=== PATIENT | male | born 1975 | race Caucasian/White ===

== ENCOUNTER 2017-05-11 18:49 | Emergency (ER) | payer MEDICARE, MEDICAID ==
[2017-05-11] MEDS ORDERED: AMOX/CLAV 875 MG/125 MG TABLET PO STA (19:51)
[2017-05-11] MEDS ORDERED: BUFFERED LIDOCAINE 10 ML SYRINGE SUBQ STA (19:51)
--- NOTE | 2017-05-11 19:51 | ED Physician Documentation ---
PD HPI LOWER EXT INJURY - Stated complaint Stated Complaint: R FOOT PX - Chief complaint Chief Complaint: Ext Problem - History obtained from History obtained from: Patient - History of Present Illness PD HPI LOW EXT INJURY LOCATION: Other (He has an ingrown toenail of the right great toe, he tried to do an excision of it about a week ago but was quite painful and it is gotten worse since then.) Review of Systems Constitutional: reports: Reviewed and negative Throat: reports: Reviewed and negative Cardiac: reports: Reviewed and negative PD PAST MEDICAL HISTORY - Past Medical History Cardiovascular: Murmur Respiratory: Asthma Neuro: Peripheral neuropathy Endocrine/Autoimmune: None GI: Chronic constipation : Incontinence HEENT: None Psych: Depression Musculoskeletal: Chronic back pain Derm: Other - Past Surgical History Past Surgical History: Yes Ortho: Spine surgery HEENT: Tonsil/Adenoidectomy - Present Medications Home Medications: Ambulatory Orders Medication Instructions Recorded Confirmed Amox/Clav 875/125 [Augmentin] 1 each PO Q12H #14 tablet 05/11/17 HYDROcod/ACETAM 5/325 [[place] 5/325] 1 - 2 ea PO Q6H PRN #7 tablet 05/11/17 - Allergies Allergies/Adverse Reactions: Allergies Allergy/AdvReac Type Severity Reaction Status Date / Time morphine Allergy Intermediate terrors Verified 05/11/17 18:55 - Social History Does the pt smoke?: No Smoking Status: Former smoker Does the pt drink ETOH?: Yes Does the pt have substance abuse?: No - Immunizations Immunizations are current?: Yes - POLST Patient has POLST: No PD ED PE NORMAL - Vitals Vital signs reviewed: Yes - General General: Alert and oriented X 3, No acute distress - Extremities Extremities: Other (The right great toenail is very short, it only comes out about 6 mm from the proximal nail bed at all and the lateral side is severely ingrown with infection) - Neuro Neuro: Alert and oriented X 3, Normal speech - Psych Psych: Normal mood, Normal affect Results - Vitals Vitals: Vital Signs - 24 hr 05/11/17 18:52 Temperature 36.9 C Heart Rate 98 Respiratory 16 Rate Blood Pressure 139/92 H O2 Saturation 99 Oxygen O2 Source Room air Procedures - General procedure General procedure: After verbal informed consent, a digital block was done with buffered lidocaine of the right great toe and after excellent anesthesia was achieved the toenail was removed in its entirety because the entire nail seem fairly diseased and unsalvageable. Departure - Departure Disposition: 01 Home, Self Care Clinical Impression: Ingrown right big toenail Condition: Good Record reviewed to determine appropriate education?: Yes Instructions: ED Ingrown Toenail Excised Follow-Up: Santiago Viveros MD [Primary Care Provider] - Within 1 week Prescriptions: Amox/Clav 875/125 [Augmentin] 1 each PO Q12H #14 tablet HYDROcod/ACETAM 5/325 [[place] 5/325] 1 - 2 ea PO Q6H PRN #7 tablet PRN Reason: Pain Comments: Your blood pressure was elevated today on check into the emergency department. This does not mean that you have hypertension, it is a common phenomenon to come to the emergency department and have elevated blood pressure. I recommend that she see your primary care physician within the week to have it rechecked when you are feeling better. Do not drink or drive while taking narcotic pain medication. Note that many narcotic pain relievers also contain Tylenol/acetaminophen. Please ensure that your total dose of acetaminophen from all sources does not exceed 3 g (3000 mg) per day. You may get constipated while on this medication. Take a stool softener such as Colace twice a day while you are on it. Also add an [id number]-nml-uhxutfr laxative such as senna or MiraLAX on any day that you do not have a bowel movement. If you received a narcotic pain medication or sedative while in the emergency department, do not drive for the next 24 hours.
[2017-05-11] MEDS ORDERED: BUFFERED LIDOCAINE 10 ML SYRINGE ONE (19:58)
[2017-05-11] MEDS ORDERED: AMOX/CLAV 875 MG/125 MG TABLET PO ONE (20:30)
[2017-05-11 20:32] VITALS: BP 122/84
== END 2017-05-11 20:32 | disposition home or self-care (01) ==
LOC: ED 18:49
DX: L60.0 Ingrowing nail (principal); R03.0 Elevated blood-pressure reading, without diagnosis of hypertension; J45.909 Unspecified asthma, uncomplicated; G62.9 Polyneuropathy, unspecified; Z87.891 Personal history of nicotine dependence
CPT/HCPCS: 11730; 99283; A9270; 64450

== ENCOUNTER 2018-10-29 11:39 | Outpatient (CLI) | payer MEDICARE, MEDICAID | END 2018-10-29 11:40 | disposition critical access hospital (66) | LOC: EMS 11:39 | PROVIDERS: ATTEND Surgery | DX: S91.311A Laceration without foreign body, right foot, initial encounter (principal); W26.9XXA Contact with unspecified sharp object(s), initial encounter; Y92.009 Unspecified place in unspecified non-institutional (private) residence as the place of occurrence of the external cause | CPT/HCPCS: A0425; A0429 ==

== ENCOUNTER 2018-10-29 12:00 | Emergency (ER) | payer MEDICARE, MEDICAID ==
[2018-10-29] MEDS ORDERED: SULFAMETH/TRIMETH DS 800/160 MG TABLET PO STA (13:01)
[2018-10-29] MEDS ORDERED: cephALEXin 250 MG CAPSULE PO STA (13:01)
[2018-10-29] MEDS ORDERED: HYDROcod/ACETAM 5/325 MG TABLET PO STA (13:01)
--- NOTE | 2018-10-29 13:03 | ED Physician Documentation ---
PD HPI LOWER EXT INJURY - Stated complaint Stated Complaint: R FOOT PX - Chief complaint Chief Complaint: Ext Problem - History obtained from History obtained from: Patient - History of Present Illness PD HPI LOW EXT INJURY LOCATION: Right (10 days ago he scraped his right foot on an exposed piece of linoleum fer. Over the last 3 days he has had increased pain and warmth over the top of the foot without fevers or chills.) Review of Systems Constitutional: denies: Fever, Chills, Myalgias, Fatigue Cardiac: denies: Chest pain / pressure, Palpitations Respiratory: denies: Dyspnea, Cough PD PAST MEDICAL HISTORY - Past Medical History Cardiovascular: Murmur Respiratory: Asthma Endocrine/Autoimmune: None GI: Chronic constipation : Incontinence HEENT: None Psych: Depression Musculoskeletal: Chronic back pain Derm: Other - Past Surgical History Past Surgical History: Yes Ortho: Spine surgery HEENT: Tonsil/Adenoidectomy - Present Medications Home Medications: Ambulatory Orders Medication Instructions Recorded Confirmed Cephalexin [Keflex] 500 mg PO Q6H #28 capsule 10/29/18 Hydrocodone/Acetaminophen 1 - 2 each PO Q6H PRN #14 tablet 10/29/18 [Hydrocodon-Acetaminophen 5-325] Pregabalin [Lyrica] 1 tab ORAL TID 10/29/18 10/29/18 RX: traMADol [Ultram] 1 tab ORAL Q6HR 10/29/18 10/29/18 Sulfamethoxazole/Trimethoprim 1 each PO BID #14 tablet 10/29/18 [Sulfamethoxazole-Tmp Ds Tablet] - Allergies Allergies/Adverse Reactions: Allergies Allergy/AdvReac Type Severity Reaction Status Date / Time morphine Allergy Intermediate terrors Verified 10/29/18 12:12 - Social History Does the pt smoke?: No Smoking Status: Former smoker Does the pt drink ETOH?: Yes Does the pt have substance abuse?: No - Immunizations Immunizations are current?: Yes - POLST Patient has POLST: No PD ED PE NORMAL - Vitals Vital signs reviewed: Yes - General General: Alert and oriented X 3, No acute distress - Extremities Extremities: Other (On the bottom of the right foot, about the level of the third metatarsal head there is a shallow abrasion with just a drop of pus in the wound bed that was cultured during examination with very mild cellulitis over the top of the foot. No pain out of proportion to examination, no crepitance, no limited range of motion.) - Neuro Neuro: Alert and oriented X 3, Normal speech Results - Vitals Vitals: Vital Signs - 24 hr 10/29/18 10/29/18 12:07 13:17 Temperature 36.5 C 37.1 C Heart Rate 78 75 Respiratory 16 15 Rate Blood Pressure 126/89 H 126/84 H O2 Saturation 100 100 Oxygen O2 Source Room air PD MEDICAL DECISION MAKING - ED course ED course: This is a 43-year-old gentleman with right foot cellulitis from the wound, the wound was cultured. He is placed on Keflex and Bactrim. He is advised to keep it elevated. Departure - Departure Disposition: 01 Home, Self Care Clinical Impression: Cellulitis of right foot Condition: Good Record reviewed to determine appropriate education?: Yes Instructions: Cellulitis Dc Prescriptions: Cephalexin [Keflex] 500 mg PO Q6H #28 capsule Hydrocodone/Acetaminophen [Hydrocodon-Acetaminophen 5-325] 1 - 2 each PO Q6H PRN #14 tablet PRN Reason: pain Sulfamethoxazole/Trimethoprim [Sulfamethoxazole-Tmp Ds Tablet] 1 each PO BID #14 tablet Comments: We are performing a wound culture, the results should be done in 48-72 hours. If antibiotic change is necessary we will call you. Return if worse in the meantime, especially if you develop increased pain, fevers, cannot keep down the medication. Otherwise follow-up with your physician in approximately 2-3 days. [address] not drink or drive while taking narcotic pain medication. Note that many narcotic pain relievers also contain Tylenol/acetaminophen. Please ensure that your total dose of acetaminophen from all sources does not exceed 3 g (3000 mg) per day. You may get constipated while on this medication. Take a stool softener such as Colace twice a day while you are on it. Also add an ezrw-ibq-lgcjieg laxative such as senna or MiraLAX on any day that you do not have a bowel movement. If you received a narcotic pain medication or sedative while in the emergency department, do not drive for the next 24 hours. Your blood pressure was elevated today on check into the emergency department. This does not mean that you have hypertension, it is a common phenomenon to come to the emergency department and have elevated blood pressure. I recommend that you see your primary care physician within the week to have it rechecked when you are feeling better. Discharge Date/Time: 10/29/18 13:20
[2018-10-29 13:18] VITALS: BP 126/84
== END 2018-10-29 13:20 | disposition home or self-care (01) ==
LOC: EDUNIT# → ED 12:00
DX: L03.115 Cellulitis of right lower limb (principal); S90.811A Abrasion, right foot, initial encounter; W45.8XXA Other foreign body or object entering through skin, initial encounter; R03.0 Elevated blood-pressure reading, without diagnosis of hypertension; Z87.891 Personal history of nicotine dependence
CPT/HCPCS: 87070; 87205; 99282; 99283; A9270; 87181

== ENCOUNTER 2019-04-13 22:19 | Outpatient (CLI) | payer MEDICARE, MEDICAID | END 2019-04-13 22:20 | disposition critical access hospital (66) | LOC: EMS 22:19 | PROVIDERS: ATTEND Surgery | DX: R10.32 Left lower quadrant pain (principal) | CPT/HCPCS: A0425; A0429 ==

== ENCOUNTER 2019-04-13 22:41 | Emergency (ER) | payer MEDICARE, MEDICAID ==
--- NOTE | 2019-04-14 00:19 | CT Report ---
Reason: left testicle pain radiating into abd.nrml testi Procedure Date: 04/13/2019 Accession Number: [id number] / [id number] Procedure: CT - Abdomen/Pelvis WO CPT Code: FULL RESULT: EXAM: CT ABDOMEN AND PELVIS (CT KUB) EXAM DATE: 04/13/2019 11:33 PM. CLINICAL HISTORY: Left testicle pain radiating into abd. nrml testi. COMPARISONS: None. TECHNIQUE: Routine helical CT imaging was performed through the abdomen and pelvis without intravenous contrast. Lack of intravenous contrast can at times limit scan sensitivity, particularly for the detection of intraparenchymal and vascular pathology. Reconstructions: Coronal and sagittal. In accordance with CT protocol optimization, one or more of the following dose reduction techniques were utilized for this exam: automated exposure control, adjustment of mA and/or KV based on patient size, or use of iterative reconstructive technique. FINDINGS: ABDOMEN: Lung Bases: 2.2 cm peripheral soft tissue nodule, likely pleural or extrapleural adjacent to the right ninth rib posterolaterally (3/7). There is remodeling of the rib. Liver: Unremarkable. Gallbladder/Bile Ducts: Gallbladder is unremarkable. Visualized biliary tree is normal caliber. Spleen: Unremarkable. Pancreas: Unremarkable. Adrenal Glands: Unremarkable. Kidneys: No calculi or hydronephrosis. Peritoneum/Mesentery/Bowel: No free fluid, free air, or collection. No intestinal obstruction or inflammation. The appendix is within normal limits. Lymph nodes: No mesenteric, periportal, or retroperitoneal lymphadenopathy. PELVIS: The bladder is unremarkable for the degree of distention. Prostate is present. No pelvic lymphadenopathy. Retroperitoneum: Abdominal aorta is nonaneurysmal. Bones: No suspicious osseous lesions. IMPRESSION: No acute unenhanced intra-abdominal abnormalities. 2.2 cm likely pleural or extrapleural soft tissue nodule adjacent to the right ninth rib posterolaterally. This has nonaggressive features, with adjacent remodeling of the rib without invasion. Further evaluation is recommended, such as with contrast-enhanced MRI versus biopsy versus serial follow-up. [facility]
--- NOTE | 2019-04-14 01:26 | ED Physician Documentation ---
PD HPI MALE - Stated complaint Stated Complaint: ABD PAIN/ TESTICULAR PAIN - Chief complaint Chief Complaint: Abd Pain - History obtained from History obtained from: Patient - History of Present Illness Timing - onset: How many days ago (5) Timing - duration: Days (5) Timing - details: Gradual onset, Still present Associated symptoms: Testiclar pain, Abdominal pain. No: Dysuria, Urinary frequency, Unable to urinate, Discharge, Genital sore / lesion Similar symptoms before: Has not had sx before Recently seen: Not recently seen - Additional information Additional information: 44-year-old disabled male has developed pain in his left groin about 5 days ago and he states that that seemed to resolve and then had pain is come back over the last 2 days. He notes that it seems the pain is coming from the left testicle area but he does not have any swelling or tenderness to the testicle he has tenderness along the medial aspect of the left thigh. He does not know of anything that he could have done to strain this area. He has some pain that goes up to the lower part of his abdomen. He denies any visceral symptoms no nausea vomiting diarrhea constipation. He has not had these symptoms previously. Review of Systems Constitutional: denies: Fever Ears: denies: Ear pain Nose: denies: Congestion Throat: denies: Sore throat Cardiac: denies: Chest pain / pressure, Palpitations Respiratory: denies: Dyspnea, Cough GI: reports: Abdominal Pain. denies: Nausea, Vomiting, Constipation, Diarrhea : reports: Testicular pain. denies: Dysuria, Frequency, Testicular mass Skin: denies: Rash Musculoskeletal: reports: Extremity pain. denies: Neck pain, Back pain Neurologic: denies: Generalized weakness, Focal weakness, Numbness PD PAST MEDICAL HISTORY - Past Medical History Past Medical History: No Cardiovascular: Murmur Respiratory: Asthma Neuro: None Endocrine/Autoimmune: None GI: Chronic constipation : Incontinence HEENT: None Psych: Depression Musculoskeletal: Chronic back pain Derm: Other - Past Surgical History Past Surgical History: Yes Ortho: Spine surgery HEENT: Tonsil/Adenoidectomy - Present Medications Home Medications: Ambulatory Orders Medication Instructions Recorded Confirmed Cephalexin [Keflex] 500 mg PO Q6H #28 capsule 10/29/18 Hydrocodone/Acetaminophen 1 - 2 each PO Q6H PRN #14 tablet 10/29/18 [Hydrocodon-Acetaminophen 5-325] Pregabalin [Lyrica] 1 tab ORAL TID 10/29/18 10/29/18 Sulfamethoxazole/Trimethoprim 1 each PO BID #14 tablet 10/29/18 [Sulfamethoxazole-Tmp Ds Tablet] traMADol [Ultram] 1 tab ORAL Q6HR 10/29/18 10/29/18 Hydrocodone/Acetaminophen 1 - 2 each PO Q6H PRN #14 tablet 04/14/19 [Hydrocodon-Acetaminophen 5-325] Sulfamethoxazole/Trimethoprim 1 each PO BID #14 tablet 04/14/19 [Sulfamethoxazole-Tmp Ds Tablet] - Allergies Allergies/Adverse Reactions: Allergies Allergy/AdvReac Type Severity Reaction Status Date / Time morphine Allergy Intermediate terrors Verified 04/13/19 22:47 - Social History Does the pt smoke?: No Smoking Status: Never smoker Does the pt drink ETOH?: Yes Does the pt have substance abuse?: No - Immunizations Immunizations are current?: Yes - POLST Patient has POLST: No PD ED PE NORMAL - Vitals Vital signs reviewed: Yes (hyertensive mild ) - General General: Alert and oriented X 3, No acute distress, Well developed/nourished - HEENT HEENT: Atraumatic, PERRL, EOMI - Respiratory Respiratory: No respiratory distress - Abdomen Abdomen: Normal bowel sounds, Soft, Non tender, Non distended, No organomegaly - Male Male : Other (There is no evidence of swelling or tenderness to the testes or epidydimi. There is no herniation or tenderness in the inguinal canal. There is some tenderness to the muscle to the medial aspect of the left thigh and inguinal canal. 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, No motor deficit, No sensory deficit, Normal speech Eye Opening: Spontaneous Motor: Obeys Commands Verbal: Oriented GCS Score: 15 - Psych Psych: Normal mood, Normal affect Results - Vitals Vitals: Vital Signs - 24 hr 04/13/19 04/14/19 22:45 01:10 Temperature 36.8 C 36.8 C Heart Rate 83 74 Respiratory 18 15 Rate Blood Pressure 132/81 H 114/76 O2 Saturation 99 98 Oxygen O2 Source Room air - Labs Labs: Laboratory Tests 04/14/19 01:26 Urine Color YELLOW Urine Clarity CLEAR Urine pH 6.5 Ur Specific Zanoni 1.020 Urine Protein TRACE Urine Glucose (UA) NEGATIVE Urine Ketones NEGATIVE Urine Occult Blood NEGATIVE Urine Nitrite NEGATIVE Urine Bilirubin NEGATIVE Urine Urobilinogen 0.2 (NORMAL) Ur Leukocyte Esterase SMALL H Urine RBC None Seen Urine WBC 6-10 H Ur Squamous Epith Cells NONE SEEN Urine Bacteria Few Ur Microscopic Review INDICATED Urine Culture Comments INDICATED - Rads (name of study) CT ab/pel w/o Radiology: Prelim report reviewed (Impression: No acute unenhanced intra- abdominal abnormalities. 2.2 cm likely pleural or extrapleural soft tissue nodule adjacent to the right ninth rib posterior lateral. This has nonaggressive his features, with adjacent remodeling of the rib without invasion. Further evaluation is recommended, such as with contrast-enhanced MRI versus biopsy versus serial follow-up.), EMP read indepedently, See rad report PD MEDICAL DECISION MAKING - ED course Complexity details: reviewed old records, reviewed results, re-evaluated patient, considered differential, d/w patient ED course: 44-year-old male with left groin pain and referred pain to the left testicle does not have testicular tenderness he does have groin tenderness consistent with a groin pull and on initial evaluation I entertain the possibility of referred pain from kidney stone and examined the patient's left kidney with a bedside ultrasound the kidney is sonographically nontender there was trace amount of hydronephrosis and a CT scan of the abdomen and pelvis was undertaken which did not demonstrate any abnormality to the urinary collecting system. There is a incidental finding on CT scan the patient has had issues previously with tumor and he will need follow-up with this. This is incidental and unrelated to today's visit. I suspect today's visit is related to a strain of the groin. Departure - Departure Disposition: 01 Home, Self Care Clinical Impression: Strain of left inguinal muscle Qualifiers: Encounter type: initial encounter Qualified Code(s): S39.013A - Strain of muscle, fascia and tendon of pelvis, initial encounter UTI (urinary tract infection) Qualifiers: Urinary tract infection type: acute cystitis Hematuria presence: without hematuria Qualified Code(s): N30.00 - Acute cystitis without hematuria Instructions: ED Strain Groin, ED UTI Cystitis Male Follow-Up: Santiago Viveros MD [Primary Care Provider] - Prescriptions: Hydrocodone/Acetaminophen [Hydrocodon-Acetaminophen 5-325] 1 - 2 each PO Q6H PRN #14 tablet PRN Reason: pain Sulfamethoxazole/Trimethoprim [Sulfamethoxazole-Tmp Ds Tablet] 1 each PO BID #14 tablet Comments: Today on your CT scan 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 This does not appear to be an aggressive type of tumor and follow-up will need to be done in some form. Either a biopsy or repeat scanning.
[2019-04-14 01:35] LABS: BILIRUBIN,URINE NEGATIVE (NEGATIVE); GLUCOSE, URINE (UA) NEGATIVE (NEGATIVE); KETONES,URINE (UA) NEGATIVE (NEGATIVE); LEUKOCYTE ESTERASE, URINE SMALL (NEGATIVE); NITRITE,URINE NEGATIVE (NEGATIVE); OCCULT BLOOD,URINE NEGATIVE (NEGATIVE); PH,URINE 6.5 PH (5.0-7.5); PROTEIN,URINE TRACE mg/dL (NEGATIVE); UROBILINOGEN,URINE 0.2 (NORMAL) E.U./dL (NORMAL)
[2019-04-14 01:40] LABS: CLARITY,URINE CLEAR (CLEAR)
[2019-04-14 01:44] LABS: BACTERIA,URINE Few /HPF (None Seen); RBC,URINE None Seen /HPF (0-5); SQUAMOUS EPITHELIAL CELL,UR NONE SEEN (<= Few)
[2019-04-14] MEDS ORDERED: HYDROcod/ACET 5/325 Prepack 4 PO STA (01:58)
[2019-04-14 02:31] VITALS: BP 112/80
== END 2019-04-14 02:30 | disposition home or self-care (01) ==
LOC: EDUNIT# → ED 22:41
DX: S39.013A Strain of muscle, fascia and tendon of pelvis, initial encounter (principal); X58.XXXA Exposure to other specified factors, initial encounter; N30.00 Acute cystitis without hematuria; D21.3 Benign neoplasm of connective and other soft tissue of thorax
CPT/HCPCS: 74176; 81001; 81003; 87077; 87086; 87181; 99284

== ENCOUNTER 2019-04-29 16:42 | Outpatient (CLI) | payer MEDICARE, MEDICAID ==
[2019-04-29] MEDS ORDERED: GADOBUTROL 7.5 MMOL/7.5 ML VIAL ONE (18:16)
[2019-04-29] MEDS ORDERED: GADOBUTROL 7.5 MMOL/7.5 ML VIAL IVP ONE (18:21)
--- NOTE | 2019-04-30 14:48 | MRI Report ---
Reason: PLEURAL MASS Procedure Date: 04/29/2019 Accession Number: [id number] / [id number] Procedure: MRI - Chest W/WO CPT Code: FULL RESULT: EXAM: MR CHEST WITH AND WITHOUT CONTRAST EXAM DATE: 04/29/2019 06:19 PM. CLINICAL HISTORY: Right pleural nodule seen on noncontrast CT. COMPARISON: Noncontrast CT abdomen and pelvis 04/13/2019. TECHNIQUE: Multiplanar breath-hold T1, T2 sequences obtained through the chest (attention lower right chest wall) on an MR scanner. Images obtained before and after administration of 7.5 mL Gadavist intravenous contrast. FINDINGS: Chest Wall/Pleura: Known nodule in the right eighth intercostal space abutting the ninth rib measures 1.8 x 1.4 cm in transaxial diameter (3/301), unchanged on remeasurement. It demonstrates slightly heterogeneous hyperintense T2 and mildly heterogeneous hypointense T1 signal and mildly heterogeneous diffuse enhancement. 2 additional similar intercostal nodules in the lateral lower right chest wall measure 1.1 cm in maximal diameter (6, 12; series 801). There are 2 circumscribed enhancing T2 hyperintense nodules in the lower right paraspinous muscle measuring 1.3 cm and 0.9 cm in diameter (21, 22; series 801). Another 14 mm circumscribed T2 hyperintense nodule posterior midline interspinous region with less intense enhancement. A 7 mm subcutaneous nodule posteriorly (16/801). Lungs: Partially seen and grossly unremarkable. Mediastinum: Normal heart size without pericardial effusion. The upper mediastinum is not imaged. Other: There is T2 hyperintensity approximately 10 x 7 mm in transaxial diameter in the right lower thoracic spinal canal mildly compressing and deforming the spinal cord (/301). IMPRESSION: 1. Multiple enhancing circumscribed T2 hyperintense nodules in lower right intercostal spaces, posterior inferior paraspinous musculature, subcutaneous fat, and in addition to the suspicion of a small extradural lesion in lower right thoracic spinal canal deforming the spinal cord. 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 Suggest MRI thoracic spine with and without contrast. [facility]
== END 2019-04-29 16:43 | disposition home or self-care (01) ==
LOC: DI 16:42
PROVIDERS: ATTEND Family Medicine
DX: R22.2 Localized swelling, mass and lump, trunk (principal)
CPT/HCPCS: 71552; A9585

== ENCOUNTER 2019-06-24 12:42 | Outpatient (CLI) | payer MEDICARE, MEDICAID ==
[2019-06-24] MEDS ORDERED: GADOBUTROL 7.5 MMOL/7.5 ML VIAL IVP ONE (14:04)
[2019-06-24] MEDS ORDERED: GADOBUTROL 7.5 MMOL/7.5 ML VIAL ONE (14:07)
--- NOTE | 2019-06-24 15:26 | MRI Report ---
Reason: PLEURAL MASS Procedure Date: 06/24/2019 Accession Number: [id number] / [id number] Procedure: MRI - Thoracic Spine W/WO CPT Code: Final Report FULL RESULT: EXAM: MRI THORACIC SPINE WITHOUT AND WITH CONTRAST EXAM DATE: 06/24/2019 02:18 PM. CLINICAL HISTORY: 44-year-old male. PLEURAL MASS. COMPARISONS: MRI thoracic spine 06/07/2010 TECHNIQUE: Multiplanar, multisequence T1-weighted and fluid-sensitive sequences of the thoracic spine from C7 to L1 before and after administration of intravenous contrast. Other: None. IV contrast: 7.5 ML Gadavist. FINDINGS: Postsurgical: The patient is again noted be status post prior bilateral laminectomies at T7 and T8. Spinal Cord: Significant cord deformity is seen at the postsurgical T7 and T8 levels with marked cord thinning and contour abnormality (for example series 901 image 40), compatible with myelomalacia. Alignment: No scoliosis or spondylolisthesis. Bone Marrow: No gross fractures or bone lesion. No bone marrow edema or abnormal enhancement. Spinal Canal: Compared to prior MRI of thoracic spine from 06/07/2010, interval increase in size of the avidly enhancing intradural, extramedullary mass in the spinal canal at the T8-T9 level, laterally on the right, now measuring 11 x 11 x 14 mm (transverse by craniocaudal), previously 9 x 7 x 10 mm. As a result, the central canal narrowing and mass-effect on the cord has significantly increased at this level, now severe. Slightly more superiorly at the T7 level, there is a similar avidly enhancing intradural extramedullary mass posteriorly on the left, measuring 5 x 8 x 8 mm (series 1601 image 8, series 1501 image 45), with associated moderate central canal narrowing. On the prior study a punctate focus of enhancement suggested at this level, however not well visualized. No significant central canal or foraminal narrowing at remaining thoracic levels. Musculature: Normal. No edema, enhancement, or fatty atrophy. Other: Interval increase in size of the multiple enhancing lesions within the posterior paraspinal musculature and subcutaneous tissues, including a lesion at T9 level measuring 25 mm, previously 12 mm; and slightly more inferiorly 2 lesions at T10 level measuring 13 mm and 9 mm (series 1501 image 24), previously 6 mm and 4 mm; lesion at T11 level measuring 12 mm, previously 8 mm The visualized lungs, mediastinum, and abdominal cavity are otherwise unremarkable. IMPRESSION: 1. Overall, given two intradural/extramedullary enhancing lesions which have both increased in size since the prior study, as well as numerous enhancing lesions within the posterior paraspinal soft tissues, both subcutaneous and in the paraspinal musculature, which have also increased in size since the prior study, this raises a question of whether patient has a genetic/predisposing condition such as neurofibromatosis 1 or 2. Has there been workup for such possibilities? 2. Compared to prior MRI of thoracic spine from 06/07/2010, interval increase in size of the avidly enhancing intradural, extramedullary mass in the spinal canal at the T8-T9 level, laterally on the right, now measuring 11 x 11 x 14 mm (transverse by craniocaudal), previously 9 x 7 x 10 mm. This may represent a meningioma versus a nerve sheath tumor such as schwannoma or neurofibroma. 3. The central canal narrowing and mass-effect on the cord T8-T9 level has significantly increased at this level, now severe. No foraminal narrowing at this level. 4. Slightly more superiorly at the T7 level, there is a similar avidly enhancing intradural extramedullary mass posteriorly on the left, measuring 5 x 8 x 8 mm (series 1601 image 8, series 1501 image 45), with associated moderate central canal narrowing and neural foraminal narrowing. Similar differential considerations for the lesion as the lesion at T8-T9 level. On the prior study a punctate focus of enhancement suggested at this level, however not well visualized. 5. No significant central canal or foraminal narrowing at remaining thoracic levels. 6. The patient is again noted be status post prior bilateral laminectomies at T7 and T8. Significant cord deformity is seen at the postsurgical T7 and T8 levels with marked cord thinning and contour abnormality (for example series 901 image 40), compatible with myelomalacia. RADIA
== END 2019-06-24 12:43 | disposition home or self-care (01) ==
LOC: DI 12:42
PROVIDERS: ATTEND Family Medicine
DX: R22.2 Localized swelling, mass and lump, trunk (principal)
CPT/HCPCS: 72157; A9585

== ENCOUNTER 2019-07-30 00:47 | Emergency (ER) | payer MEDICARE, MEDICAID ==
[2019-07-30 00:57] VITALS: BP 141/92
[2019-07-30] MEDS ORDERED: cephALEXin 250 MG CAPSULE PO STA (02:39)
[2019-07-30] MEDS ORDERED: SULFAMETH/TRIMETH DS 800/160 MG TABLET PO STA (02:39)
[2019-07-30] MEDS ORDERED: BACITRACIN ZINC OINT 14 GM TOP STA (02:39)
--- NOTE | 2019-07-30 02:40 | ED Physician Documentation ---
PD HPI SKIN - Stated complaint Stated Complaint: LEFT LEG INJURY - Chief complaint Chief Complaint: Wound - Additional information Additional information: This is a 44-year-old male with a history of past MRSA infections who presents with a wound on his left leg. Patient states it began as a insect bite, it became a little bit red and inflamed, and he was picking at the wound and created an open sore. He noticed that there was some purulent drainage from it when he started picking at it. The wound has had some redness expanding out around it for the last several days, so he decided to come in to get checked. He denies any fever. Review of Systems Constitutional: denies: Fever Nose: denies: Rhinorrhea / runny nose Cardiac: denies: Chest pain / pressure Skin: reports: Lesions Neurologic: denies: Generalized weakness PD PAST MEDICAL HISTORY - Past Medical History Past Medical History: Yes Cardiovascular: Murmur Respiratory: Asthma Neuro: None Endocrine/Autoimmune: None GI: Chronic constipation : Incontinence HEENT: None Psych: Depression Musculoskeletal: Chronic back pain Derm: Other - Past Surgical History Past Surgical History: Yes Ortho: Spine surgery HEENT: Tonsil/Adenoidectomy - Present Medications Home Medications: Ambulatory Orders Medication Instructions Recorded Confirmed Pregabalin [Lyrica] 1 tab ORAL TID 10/29/18 07/30/19 Hydrocodone/Acetaminophen 1 - 2 each PO Q6H PRN #14 tablet 04/14/19 07/30/19 [Hydrocodon-Acetaminophen 5-325] Cephalexin [Keflex] 500 mg PO Q6H #32 capsule 07/30/19 Sulfamethox/Trimeth 800/160 1 each PO BID #16 tablet 07/30/19 [Bactrim Ds 800/160] - Allergies Allergies/Adverse Reactions: Allergies Allergy/AdvReac Type Severity Reaction Status Date / Time morphine Allergy Intermediate terrors Verified 07/30/19 01:45 - Social History Does the pt smoke?: No Smoking Status: Never smoker Does the pt drink ETOH?: Yes Does the pt have substance abuse?: No - Immunizations Immunizations are current?: Yes - POLST Patient has POLST: No PD ED PE NORMAL - Vitals Vital signs reviewed: Yes - General General: Alert and oriented X 3 - HEENT HEENT: Other (Poor dentition) - Neck Neck: No: Supple, no meningeal sign - Cardiac Cardiac: RRR - Respiratory Respiratory: No respiratory distress - Abdomen Abdomen: Soft, Non distended - Extremities Extremities: Other (Over the left lower extremity there is a meter open wound, with no purulent drainage, there is a 3 cm diameter area of around this. No pustules, no necrosis. Extremity is neurovascularly intact) Results - Vitals Vitals: Vital Signs - 24 hr 07/30/19 00:53 Temperature 36.8 C Heart Rate 90 Respiratory 16 Rate Blood Pressure 141/92 H O2 Saturation 99 Oxygen O2 Source Room air PD MEDICAL DECISION MAKING - ED course Complexity details: considered differential (Cellulitis, abscess, self-induced wound, MRSA infection) ED course: Patient presents with cellulitis surrounding a wound which he caused by picking at a lesion on his skin. He has a history of MRSA infections, and he does note that there was purulent drainage from the wound, though there is none at this time. He was given a dose of Bactrim and Keflex, and prescribed a course of Bactrim and Keflex. He is well-appearing without signs of systemic toxicity or infection that would require labs or IV antibiotics at this time. I discussed that if his cellulitis is progressing despite the antibiotics he needs to return to the emergency department. He should follow-up with his primary care provider in the next several days for a wound recheck as well. I emphasized the importance of not picking at the wound, and of good wound care. Return precautions were discussed and patient was discharged home Departure - Departure Disposition: 01 Home, Self Care Clinical Impression: Cellulitis Qualifiers: Site of cellulitis: extremity Site of cellulitis of extremity: lower extremity Laterality: left Qualified Code(s): L03.116 - Cellulitis of left lower limb Condition: Good Instructions: ED Infec Skin Cellulitis Follow-Up: Santiago Viveros MD [Primary Care Provider] - Within 3 Days (For a re-check ) Prescriptions: Cephalexin [Keflex] 500 mg PO Q6H #32 capsule Sulfamethox/Trimeth 800/160 [Bactrim Ds 800/160] 1 each PO BID #16 tablet Comments: You have a skin infection on your lower leg. Please do not pick at the wound. Keep it clean by washing with soap and water. Keep a clean bandage over the wound. Take the antibiotics as prescribed. If you are having worsening such as redness that is extending further up your leg, fever, or any other concerning symptoms, return to the emergency department. Even if you are having improvement please follow-up with your primary care provider for a recheck. Discharge Date/Time: 07/30/19 02:55
== END 2019-07-30 02:55 | disposition home or self-care (01) ==
LOC: ED 00:47
DX: L03.116 Cellulitis of left lower limb (principal); Z86.14 Personal history of Methicillin resistant Staphylococcus aureus infection
CPT/HCPCS: 99282; 99284; A9270

== ENCOUNTER 2019-11-19 23:59 | Outpatient (CLI) | payer MEDICARE, MEDICAID | END 2019-11-20 | disposition critical access hospital (66) | LOC: EMS 23:59 | PROVIDERS: ATTEND Surgery | DX: S61.230A Puncture wound without foreign body of right index finger without damage to nail, initial encounter (principal); W55.01XA Bitten by cat, initial encounter; Y92.028 Other place in mobile home as the place of occurrence of the external cause | CPT/HCPCS: A0425; A0429 ==

== ENCOUNTER 2019-11-20 00:21 | Emergency (ER) | payer MEDICARE, MEDICAID ==
[2019-11-20 00:29] VITALS: BP 138/88
[2019-11-20] MEDS ORDERED: cefTRIAXone 1 GM VIAL IM STA (00:52)
[2019-11-20] MEDS ORDERED: LIDOCAINE 1% 2 ML VIAL MC ONE (00:52)
--- NOTE | 2019-11-20 01:01 | ED Physician Documentation ---
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 He called the ambulance and was transported the hospital. He has not had fever with this and he has not had extension of the erythema into the forearm. The swelling and redness is over the proximal phalange of the right index finger. He is up-to-date on his tetanus. Review of Systems Constitutional: denies: Fever, Chills, Myalgias Ears: denies: Ear pain Nose: denies: Congestion Throat: denies: Sore throat Respiratory: denies: Dyspnea, Cough GI: denies: Abdominal Pain, Nausea, Vomiting : denies: Dysuria Skin: reports: Bite / sting. denies: Rash Musculoskeletal: reports: Extremity pain, Extremity swelling. denies: Neck pain, Back pain Neurologic: denies: Generalized weakness, Focal weakness, Numbness PD PAST MEDICAL HISTORY - Past Medical History Past Medical History: Yes Cardiovascular: Murmur Respiratory: Asthma Neuro: None Endocrine/Autoimmune: None GI: Chronic constipation : Incontinence HEENT: None Psych: Depression Musculoskeletal: Chronic back pain Derm: Other - Past Surgical History Past Surgical History: Yes Ortho: Spine surgery HEENT: Tonsil/Adenoidectomy - Present Medications Home Medications: Ambulatory Orders Medication Instructions Recorded Confirmed Pregabalin [Lyrica] 1 tab ORAL TID 10/29/18 07/30/19 Hydrocodone/Acetaminophen 1 - 2 each PO Q6H PRN #14 tablet 04/14/19 07/30/19 [Hydrocodon-Acetaminophen 5-325] Cephalexin [Keflex] 500 mg PO Q6H #32 capsule 07/30/19 Sulfamethox/Trimeth 800/160 1 each PO BID #16 tablet 07/30/19 [Bactrim Ds 800/160] Amox/Clav 875/125 [Augmentin] 1 each PO Q12H #20 tablet 11/20/19 - Allergies Allergies/Adverse Reactions: Allergies Allergy/AdvReac Type Severity Reaction Status Date / Time morphine Allergy Intermediate terrors Verified 11/20/19 00:26 - Social History Does the pt smoke?: No Smoking Status: Never smoker Does the pt drink ETOH?: Yes Does the pt have substance abuse?: No - Immunizations Immunizations are current?: Yes - POLST Patient has POLST: No PD ED PE NORMAL - Vitals Vital signs reviewed: Yes (hypertensive ) - General General: Alert and oriented X 3, No acute distress, Well developed/nourished - HEENT HEENT: Atraumatic, PERRL - Respiratory Respiratory: No respiratory distress - Derm Derm: Normal color, Warm and dry, No rash - Extremities Extremities: Other (There is swelling erythema and point tenderness over the proximal phalange of the right index finger. This is over the dorsal surfaceAnd no pain into the forearm. 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, Normal speech Eye Opening: Spontaneous Motor: Obeys Commands Verbal: Oriented GCS Score: 15 - Psych Psych: Normal mood, Normal affect Results - Vitals Vitals: Vital Signs - 24 hr 11/20/19 00:26 Temperature 36.8 C Heart Rate 80 Respiratory 18 Rate Blood Pressure 138/88 H O2 Saturation 99 Oxygen O2 Source Room air PD MEDICAL DECISION MAKING - ED course Complexity details: reviewed results, re-evaluated patient, considered differential, d/w patient ED course: 84-year-old male with a cat bite to right index finger has beginnings of infection he is administered Rocephin IM we will place him on some Augmentin. Departure - Departure Disposition: 01 Home, Self Care Clinical Impression: Infected cat bite of finger Qualifiers: Encounter type: initial encounter Qualified Code(s): S61.259A - Open bite of unspecified finger without damage to nail, initial encounter; L08.9 - Local infection of the skin and subcutaneous tissue, unspecified; W55.01XA - Bitten by cat, initial encounter Condition: Stable Instructions: ED Wound Care, ED Bite Cat Follow-Up: Santiago Viveros MD [Primary Care Provider] - Prescriptions: Amox/Clav 875/125 [Augmentin] 1 each PO Q12H #20 tablet
== END 2019-11-20 01:08 | disposition home or self-care (01) ==
LOC: EDUNIT# → ED 00:21
DX: S61.250A Open bite of right index finger without damage to nail, initial encounter (principal); L08.9 Local infection of the skin and subcutaneous tissue, unspecified; W55.01XA Bitten by cat, initial encounter; Y93.K9 Activity, other involving animal care; Y92.009 Unspecified place in unspecified non-institutional (private) residence as the place of occurrence of the external cause
CPT/HCPCS: 96372; 99283; 99284

== ENCOUNTER 2020-04-01 11:17 | Outpatient (CLI) | payer MEDICARE, MEDICAID ==
--- NOTE | 2020-04-02 06:19 | XRAY Report ---
PROCEDURE: Hand 3 View RT INDICATIONS: RIGHT HAND PAIN TECHNIQUE: 3 views of the hand(s) acquired. COMPARISON: None FINDINGS: Bones: No fractures or dislocations. No suspicious bony lesions. Soft tissues: No suspicious soft tissue calcifications. IMPRESSION: No trauma found, no significant degenerative or erosive arthritis. Reviewed by: Alejo Stewart MD on 04/01/2020 1:12 PM PDT Approved by: Alejo Stewart MD on 04/01/2020 1:12 PM PDT Station ID: [id number]
== END 2020-04-01 23:59 | disposition home or self-care (01) ==
LOC: DI.WCP 11:17
PROVIDERS: ATTEND Family Medicine
DX: M79.641 Pain in right hand (principal)

== ENCOUNTER 2020-05-24 16:05 | Outpatient (CLI) | payer MEDICARE, MEDICAID | END 2020-05-24 16:06 | disposition critical access hospital (66) | LOC: EMS 16:05 | PROVIDERS: ATTEND Surgery | DX: R07.89 Other chest pain (principal) | CPT/HCPCS: A0425; A0429 ==

== ENCOUNTER 2020-05-24 16:30 | Emergency (ER) | payer MEDICARE, MEDICAID ==
[2020-05-24] MEDS ORDERED: DEXAMETHASONE 10 MG/ML VIAL IVP STA (16:46)
[2020-05-24] MEDS ORDERED: KETOROLAC 30 MG/ML VIAL IVP STA (16:47)
--- NOTE | 2020-05-24 16:51 | ED Physician Documentation ---
PD HPI CHEST PAIN - Stated complaint Stated Complaint: CP - Chief complaint Chief Complaint: Cardiac - History obtained from History obtained from: Patient - History of Present Illness Timing - onset: How many weeks ago (2) Timing - onset during: Rest Timing - duration: Weeks (2) Timing - details: Gradual onset, Still present Quality: Sharp Location: Substernal, Right chest Radiation: Other (to the sternum) Improved by: Rest Worsened by: Inspiration, Movement, Palpation, Position Similar symptoms before: Diagnosis (tumor to the spine with radiation of pain) Recently seen: Not recently seen - Additional information Additional information: 45-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 He has had an MRI done in April of last year showing this mass and he has been into see the surgeon about having it removed again and there is some talk about using radiation instead. The patient has not scheduled a surgery or the radiation. His pain seems worse than usual. He believes this is just a progression of symptoms as tumor is enlarging. He also is concerned about the possibility of coronary disease as he has a family history of heart disease. Review of Systems Constitutional: denies: Fever Eyes: denies: Decreased vision Ears: denies: Ear pain Nose: denies: Rhinorrhea / runny nose, Congestion Throat: denies: Sore throat Cardiac: reports: Chest pain / pressure. denies: Palpitations, Pedal edema, Calf pain Respiratory: denies: Dyspnea, Cough, Wheezing GI: denies: Abdominal Pain, Nausea, Vomiting : denies: Dysuria, Frequency PD PAST MEDICAL HISTORY - Past Medical History Cardiovascular: Murmur Respiratory: Asthma Neuro: None Endocrine/Autoimmune: None GI: Chronic constipation : Incontinence HEENT: None Psych: Depression Musculoskeletal: Chronic back pain Derm: Other - Past Surgical History Past Surgical History: Yes Ortho: Spine surgery HEENT: Tonsil/Adenoidectomy - Present Medications Home Medications: Ambulatory Orders Medication Instructions Recorded Confirmed Pregabalin [Lyrica] 1 tab ORAL TID 10/29/18 07/30/19 Hydrocodone/Acetaminophen 1 - 2 each PO Q6H PRN #14 tablet 04/14/19 07/30/19 [Hydrocodon-Acetaminophen 5-325] Cephalexin [Keflex] 500 mg PO Q6H #32 capsule 07/30/19 Sulfamethox/Trimeth 800/160 1 each PO BID #16 tablet 07/30/19 [Bactrim Ds 800/160] Amox/Clav 875/125 [Augmentin] 1 each PO Q12H #20 tablet 11/20/19 Hydrocodone/Acetaminophen 1 - 2 each PO Q6H PRN #14 tablet 05/24/20 [Hydrocodone-Acetamin 5-325 mg] - Allergies Allergies/Adverse Reactions: Allergies Allergy/AdvReac Type Severity Reaction Status Date / Time morphine Allergy Intermediate terrors Verified 05/24/20 16:35 - Social History Does the pt smoke?: No Smoking Status: Never smoker Does the pt drink ETOH?: Yes Does the pt have substance abuse?: No - Immunizations Immunizations are current?: Yes - POLST Patient has POLST: No PD ED PE NORMAL - Vitals Vital signs reviewed: Yes (hypertensive ) - General General: Alert and oriented X 3, No acute distress, Well developed/nourished - HEENT HEENT: Atraumatic, PERRL, EOMI - Neck Neck: Supple, no meningeal sign, No bony TTP - Cardiac Cardiac: RRR, No murmur - Respiratory Respiratory: No respiratory distress, Clear bilaterally, Other (no chest wall tenderness) - Abdomen Abdomen: Soft, Non tender - Back Back: No CVA TTP, No spinal TTP, Other (There is a well healed scar to the back over the lower thoracic spine. 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, No motor deficit, No sensory deficit, Normal speech Eye Opening: Spontaneous Motor: Obeys Commands Verbal: Oriented GCS Score: 15 - Psych Psych: Normal mood, Normal affect Results - Vitals Vitals: Vital Signs - 24 hr 05/24/20 16:35 Temperature 37.3 C Heart Rate 95 Respiratory 18 Rate Blood Pressure 147/92 H O2 Saturation 97 Oxygen O2 Source Room air - EKG (time done) 1632 Rate: Rate (enter#) (95) Rhythm: NSR Ischemia: ST elevation c/w repol Compare to prior EKG: Old EKG unavailable (no prior tracing for comparison) Computer interpretation: Agree with computer - Labs Labs: Laboratory Tests 05/24/20 05/24/20 05/24/20 16:48 16:48 16:48 WBC 6.3 RBC 4.84 Hgb 14.6 Hct 43.6 MCV 90.1 MCH 30.2 MCHC 33.5 RDW 13.5 Plt Count 261 MPV 11.7 H Neut # (Auto) 4.5 Lymph # (Auto) 1.1 L [place] # (Auto) 0.5 Eos # (Auto) 0.1 Baso # (Auto) 0.1 Absolute Nucleated RBC 0.00 Nucleated RBC % 0.0 Sodium 144 Potassium 3.4 L Chloride 105 Carbon Dioxide 28 Anion Gap 11.0 BUN 18 Creatinine 1.1 Estimated GFR (MDRD) 73 L Glucose 104 H Calcium 9.3 Total Bilirubin 0.7 AST 12 ALT 12 Alkaline Phosphatase 48 Troponin I High Sens 4.4 Total Protein 6.8 Albumin 4.3 Globulin 2.5 Albumin/Globulin Ratio 1.7 Lipase 36 - Rads (name of study) chest Radiology: Prelim report reviewed (Impression: No acute cardiopulmonary abnormality), EMP read indepedently, See rad report PD MEDICAL DECISION MAKING - ED course Complexity details: reviewed old records, reviewed results, re-evaluated patient, considered differential, d/w patient ED course: 45-year-old male with a history of schwannoma in his back has a recurrence of his schwannoma and he is now having symptoms associated with this with radiating radicular pain on his chest wall. He has had this previously. 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 He has been concerned about this being his heart and there is no evidence of this on laboratory testing today. Departure - Departure Disposition: 01 Home, Self Care Clinical Impression: Radicular pain of thoracic region Condition: Stable Instructions: Lumbar Radiculopathy Follow-Up: ABBIE RUIZ MD [Physician No Access] - Prescriptions: Hydrocodone/Acetaminophen [Hydrocodone-Acetamin 5-325 mg] 1 - 2 each PO Q6H PRN #14 tablet PRN Reason: Pain
[2020-05-24 17:14] LABS: BASOPHILS # (AUTO) 0.1 10^3/uL (0.0-0.1); BASOPHILS % (AUTO) 0.8 %; EOSINOPHILS # (AUTO) 0.1 10^3/uL (0.0-0.7); EOSINOPHILS % (AUTO) 2.1 %; HGB - HEMOGLOBIN 14.6 g/dL (14.0-18.0); LYMPHOCYTES # (AUTO) 1.1 10^3/uL (1.5-3.5); LYMPHOCYTES % (AUTO) 17.5 %; MEAN CORPUSCULAR HEMOGLOBIN 30.2 pg (27.0-31.0); MEAN CORPUSCULAR HGB CONC 33.5 g/dL (32.0-36.0); MEAN CORPUSCULAR VOLUME 90.1 fL (80.0-94.0); MEAN PLATELET VOLUME 11.7 fL (7.4-11.4); MONOCYTES # (AUTO) 0.5 10^3/uL (0.0-1.0); MONOCYTES % (AUTO) 7.5 %; NEUTROPHILS # (AUTO) 4.5 10^3/uL (1.5-6.6); NEUTROPHILS % (AUTO) 71.8 %; PLT - PLATELET COUNT 261 10^3/uL (130-450); RED BLOOD COUNT 4.84 10^6/uL (4.70-6.10); RED CELL DISTRIBUTION WIDTH 13.5 % (12.0-15.0); WHITE BLOOD COUNT 6.3 x10^3/uL (4.8-10.8)
[2020-05-24 17:28] LABS: ALBUMIN 4.3 g/dL (3.2-5.5); ALBUMIN/GLOBULIN RATIO 1.7 (1.0-2.2); BILIRUBIN,TOTAL 0.7 mg/dL (0.2-1.0); CALCIUM 9.3 mg/dL (8.5-10.3); CREATININE 1.1 mg/dL (0.6-1.2); TOTAL PROTEIN 6.8 g/dL (6.7-8.2)
--- NOTE | 2020-05-24 17:28 | XRAY Report ---
PROCEDURE: Chest 1 View X-Ray INDICATIONS: chest pain TECHNIQUE: 2 AP views of the chest was acquired. COMPARISON: None. FINDINGS: Surgical changes and devices: None. Lungs and pleura: No pleural effusions or pneumothorax. Lungs are clear. Mediastinum: Mediastinal contours appear normal. Heart size is normal. Bones and chest wall: No suspicious bony lesions. Overlying soft tissues appear unremarkable. IMPRESSION: No acute cardiopulmonary abnormality. Reviewed by: Yuniel Chaudhry MD on 05/24/2020 5:27 PM PDT Approved by: Yuniel Chaudhry MD on 05/24/2020 5:27 PM PDT Station ID: [id number]
[2020-05-24 18:41] VITALS: BP 132/85
== END 2020-05-24 18:17 | disposition home or self-care (01) ==
LOC: EDUNIT# → ED 16:30
DX: R07.89 Other chest pain (principal); M54.14 Radiculopathy, thoracic region; D36.10 Benign neoplasm of peripheral nerves and autonomic nervous system, unspecified; Z82.49 Family history of ischemic heart disease and other diseases of the circulatory system
CPT/HCPCS: 36415; 71045; 80053; 83690; 84484; 85025; 93005; 96374; 99284

== ENCOUNTER 2020-07-03 20:58 | Outpatient (CLI) | payer MEDICARE, MEDICAID | END 2020-07-03 20:59 | disposition critical access hospital (66) | LOC: EMS 20:58 | PROVIDERS: ATTEND Surgery | DX: N50.89 Other specified disorders of the male genital organs (principal) | CPT/HCPCS: A0425; A0429 ==

== ENCOUNTER 2020-07-03 21:22 | Emergency (ER) | payer MEDICARE, MEDICAID ==
--- NOTE | 2020-07-03 21:27 | ED Physician Documentation ---
PD HPI MALE - Stated complaint Stated Complaint: MALE - History obtained from History obtained from: Patient - History of Present Illness Timing - onset: How many days ago (4) Timing - duration: Days Timing - details: Abrupt onset Pain level max: 10 Pain level now: 10 Associated symptoms: Testiclar pain, Scrotal swelling. No: Discharge PD HPI MALE CONTRIB FACTORS: Sexually active Similar symptoms before: Has not had sx before Recently seen: Not recently seen - Additional information Additional information: c/o sudden onset left scrotal/testicular pain 4 days ago. denies injury, denies h/o similar symptoms. He waited to see if symptoms would resolve, but they have steadily progressed. chills/sweats at home, did not take temperature, was not aware of fevers (febrile in ED). Review of Systems Constitutional: reports: Fever (in ED (not aware of fevers at home)), Chills, Sweats Eyes: reports: Reviewed and negative Ears: reports: Reviewed and negative Nose: reports: Reviewed and negative Throat: reports: Reviewed and negative Cardiac: reports: Reviewed and negative Respiratory: reports: Reviewed and negative GI: denies: Abdominal Pain, Nausea, Vomiting : reports: Testicular pain. denies: Dysuria, Frequency, Hematuria Skin: reports: Reviewed and negative Musculoskeletal: reports: Reviewed and negative Neurologic: reports: Reviewed and negative PD PAST MEDICAL HISTORY - Past Medical History Cardiovascular: Murmur Respiratory: Asthma Neuro: None Endocrine/Autoimmune: None GI: Chronic constipation : Incontinence HEENT: None Psych: Depression Musculoskeletal: Chronic back pain Derm: Other - Past Surgical History Past Surgical History: Yes Ortho: Spine surgery HEENT: Tonsil/Adenoidectomy - Present Medications Home Medications: Ambulatory Orders Medication Instructions Recorded Confirmed Pregabalin [Lyrica] 1 tab ORAL TID 10/29/18 07/30/19 - Allergies Allergies/Adverse Reactions: Allergies Allergy/AdvReac Type Severity Reaction Status Date / Time morphine Allergy Intermediate terrors Verified 07/03/20 21:45 - Social History Does the pt smoke?: No Smoking Status: Never smoker Does the pt drink ETOH?: Yes Does the pt have substance abuse?: No - Immunizations Immunizations are current?: Yes - POLST Patient has POLST: No PD ED PE NORMAL - Vitals Vital signs reviewed: Yes - General General: Alert and oriented X 3, Well developed/nourished, Other (obvious painful distress) - HEENT HEENT: Moist mucous membranes - Neck Neck: Supple, no meningeal sign - Cardiac Cardiac: No murmur - Respiratory Respiratory: No respiratory distress, Clear bilaterally - Abdomen Abdomen: Soft - Back Back: No CVA TTP - Extremities Extremities: No edema - Neuro Neuro: Alert and oriented X 3 PD ED PE EXPANDED - Cardiac Cardiac: Tachy, Regular Rhythm - Abdomen Abdomen: Tender to palpation, LLQ, Other (TTP LLQ and along left inguinal canal (along with fullness in inguinal canal)). No: Rebound, Guarding - Male Male : Other (severe scrotal swelling, moderate erythema. left hemiscrotum is firm and exquisitely tender. no crepitus nor bullae) Results - Vitals Vitals: Vital Signs - 24 hr 07/03/20 07/03/20 07/03/20 21:22 22:15 22:47 Temperature 39.6 C H Heart Rate 128 H 118 H 114 H Respiratory 16 16 14 Rate Blood Pressure 126/83 H 133/86 H 121/71 O2 Saturation 97 100 95 07/03/20 07/03/20 07/03/20 23:00 23:15 23:34 Temperature 38.8 C H 38.8 C H Heart Rate 124 H 117 H Respiratory 16 18 Rate Blood Pressure 119/74 119/74 O2 Saturation 94 94 07/04/20 00:10 Temperature 38.0 C H Heart Rate 117 H Respiratory 16 Rate Blood Pressure 122/67 O2 Saturation 94 Oxygen O2 Source Room air - Labs Labs: Laboratory Tests 07/03/20 07/03/20 07/03/20 21:30 21:30 21:30 WBC 13.0 H RBC 4.57 L Hgb 13.4 L Hct 41.8 L MCV 91.5 MCH 29.3 MCHC 32.1 RDW 13.4 Plt Count 230 MPV 11.9 H Neut # (Auto) 11.5 H Lymph # (Auto) 0.7 L Alfalfa # (Auto) 0.7 Eos # (Auto) 0.0 Baso # (Auto) 0.1 Absolute Nucleated RBC 0.00 Nucleated RBC % 0.0 PT 16.6 H INR 1.5 H APTT 34.8 H Sodium 138 Potassium 3.5 Chloride 96 L Carbon Dioxide 28 Anion Gap 14.0 H BUN 17 Creatinine 0.9 Estimated GFR (MDRD) 92 Glucose 127 H Lactic Acid Calcium 8.9 Total Bilirubin 0.8 AST 11 ALT 12 Alkaline Phosphatase 60 Total Protein 7.6 Albumin 3.5 Globulin 4.1 Albumin/Globulin Ratio 0.9 L Lipase 26 Urine Color Urine Clarity Urine pH Ur Specific [place] Urine Protein Urine Glucose (UA) Urine Ketones Urine Occult Blood Urine Nitrite Urine Bilirubin Urine Urobilinogen Ur Leukocyte Esterase Urine RBC Urine WBC Ur Squamous Epith Cells Urine Bacteria Ur Microscopic Review Urine Culture Comments Nasal Adenovirus (PCR) Nasal B. parapertussis DNA (PCR) Nasal Coronavir 229E PCR Nasal Coronavir HKU1 PCR Nasal Coronavir NL63 PCR Nasal Coronavir OC43 PCR Nasal Enterovir/Rhinovir PCR Nasal Influenza B PCR Nasal Parainfluen 1 PCR Nasal Parainfluen 2 PCR Nasal Parainfluen 3 PCR Nasal Parainfluen 4 PCR Nasal RSV (PCR) Nasal B.pertussis DNA PCR Nasal C.pneumoniae (PCR) Tito Human Metapneumo PCR Nasal M.pneumoniae (PCR) Nasal SARS-CoV-2 (PCR) 07/03/20 07/03/20 07/03/20 21:30 23:18 23:18 WBC RBC Hgb Hct MCV MCH MCHC RDW Plt Count MPV Neut # (Auto) Lymph # (Auto) Alfalfa # (Auto) Eos # (Auto) Baso # (Auto) Absolute Nucleated RBC Nucleated RBC % PT INR APTT Sodium Potassium Chloride Carbon Dioxide Anion Gap BUN Creatinine Estimated GFR (MDRD) Glucose Lactic Acid 1.2 Calcium Total Bilirubin AST ALT Alkaline Phosphatase Total Protein Albumin Globulin Albumin/Globulin Ratio Lipase Urine Color YELLOW Urine Clarity CLEAR Urine pH 7.0 Ur Specific [place] <=1.005 Urine Protein TRACE Urine Glucose (UA) NEGATIVE Urine Ketones NEGATIVE Urine Occult Blood TRACE-INTA Urine Nitrite POSITIVE H Urine Bilirubin NEGATIVE Urine Urobilinogen 2 H Ur Leukocyte Esterase NEGATIVE Urine RBC 0-5 Urine WBC 4-5 Ur Squamous Epith Cells RARE Squamous Urine Bacteria Moderate H Ur Microscopic Review INDICATED Urine Culture Comments INDICATED Nasal Adenovirus (PCR) NOT DETECTED Nasal B. parapertussis DNA (PCR) NOT DETECTED Nasal Coronavir 229E PCR NOT DETECTED Nasal Coronavir HKU1 PCR NOT DETECTED Nasal Coronavir NL63 PCR NOT DETECTED Nasal Coronavir OC43 PCR NOT DETECTED Nasal Enterovir/Rhinovir PCR NOT DETECTED Nasal Influenza B PCR NOT DETECTED Nasal Parainfluen 1 PCR NOT DETECTED Nasal Parainfluen 2 PCR NOT DETECTED Nasal Parainfluen 3 PCR NOT DETECTED Nasal Parainfluen 4 PCR NOT DETECTED Nasal RSV (PCR) NOT DETECTED Nasal B.pertussis DNA PCR NOT DETECTED Nasal C.pneumoniae (PCR) NOT DETECTED Tito Human Metapneumo PCR NOT DETECTED Nasal M.pneumoniae (PCR) NOT DETECTED Nasal SARS-CoV-2 (PCR) NOT DETECTED - Rads (name of study) CT A/P with IV contrast Radiology: Prelim report reviewed, See rad report testicular US Radiology: Prelim report reviewed, See rad report PD MEDICAL DECISION MAKING - ED course Complexity details: reviewed results, re-evaluated patient, considered different ial, d/w patient ED course: CT A/P interpreted by radiologist as "likely necrosis of the enlarged and edematous left testicle. infectious process including necrotizing infection should also be considered given the edema extending up the inguinal canal and along the gonadal vessels by the psoas muscle" and "marked left hydrocele with marked amount of overlying edema along the scrotal sac". Also noted is "marked enlargement of the fluid-filled left scrotum with patchy areas of air within scrotum on the left likely within the left testicle". testicular US results pending. Given concern for possible necrotizing infectious process, I contacted [facility] and d/w Dr. Jim (general surgery). He accepts transfer but recommends transfer to [facility] ED. I had ordered Rocephin and flagyl, as these were the recommended antibiotics on [facility] sepsis protocol for GI source of infection. These were ordered early in ED stay and prior to CT result, as I suspected incarcerated hernia was highest on differential diagnosis at that time. I discussed this with Dr. Jim and he agrees with this coverage at this time. patient sent by air to expedite transfer. Subsequently, scrotal/testicular US results returned and they indicate "findings likely represents necrosis and infection. No evidence of torsion at this time" and "marked bilateral scrotal wall thickening". Please refer to radiologist's readings of above studies for complete and more detailed results. Departure - Departure Disposition: 02 Transfer Acute Care Hosp Clinical Impression: Infarction of testicle, Scrotal infection Condition: Serious Discharge Date/Time: 07/04/20 00:27
[2020-07-03 21:45] LABS: BASOPHILS # (AUTO) 0.1 10^3/uL (0.0-0.1); BASOPHILS % (AUTO) 0.4 %; EOSINOPHILS % (AUTO) 0.2 %; HGB - HEMOGLOBIN 13.4 g/dL (14.0-18.0); LYMPHOCYTES # (AUTO) 0.7 10^3/uL (1.5-3.5); LYMPHOCYTES % (AUTO) 5.1 %; MEAN CORPUSCULAR HEMOGLOBIN 29.3 pg (27.0-31.0); MEAN CORPUSCULAR HGB CONC 32.1 g/dL (32.0-36.0); MEAN CORPUSCULAR VOLUME 91.5 fL (80.0-94.0); MEAN PLATELET VOLUME 11.9 fL (7.4-11.4); MONOCYTES # (AUTO) 0.7 10^3/uL (0.0-1.0); MONOCYTES % (AUTO) 5.3 %; NEUTROPHILS # (AUTO) 11.5 10^3/uL (1.5-6.6); NEUTROPHILS % (AUTO) 88.3 %; PLT - PLATELET COUNT 230 10^3/uL (130-450); RED BLOOD COUNT 4.57 10^6/uL (4.70-6.10); RED CELL DISTRIBUTION WIDTH 13.4 % (12.0-15.0)
[2020-07-03] MEDS ORDERED: SODIUM CHLORIDE 0.9% 1,000 ML IV STA (21:48)
[2020-07-03] MEDS ORDERED: ACETAMINOPHEN 325 MG TABLET PO STA (21:48)
[2020-07-03] MEDS ORDERED: HYDROmorphone 1 MG/ML CARPUJECT IVP STA ×2 (21:48→23:34)
[2020-07-03 21:52] LABS: INR 1.5 (0.8-1.2); PT - PROTHROMBIN TIME 16.6 secs (9.9-12.6)
[2020-07-03] MEDS ORDERED: cefTRIAXone 2 GM in SODIUM CHLORIDE 0.9% MINIBAG 100 ML IV STA (21:53)
[2020-07-03] MEDS ORDERED: metroNIDAZOLE 500 MG/100 ML 500 MG/100 ML BAG IV STA (21:53)
[2020-07-03 21:56] LABS: ALBUMIN 3.5 g/dL (3.2-5.5); ALBUMIN/GLOBULIN RATIO 0.9 (1.0-2.2); BILIRUBIN,TOTAL 0.8 mg/dL (0.2-1.0); CALCIUM 8.9 mg/dL (8.5-10.3); CREATININE 0.9 mg/dL (0.6-1.2); TOTAL PROTEIN 7.6 g/dL (6.7-8.2)
[2020-07-03 21:59] LABS: PARTIAL THROMBOPLASTIN TIME 34.8 secs (24.9-33.3)
[2020-07-03] MEDS ORDERED: cefTRIAXone 2 GM VIAL ONE (22:06)
[2020-07-03] MEDS ORDERED: IOVERSOL 320 100 ML VIAL IVP ONE ×2 (22:09→22:35)
[2020-07-03 23:32] LABS: BILIRUBIN,URINE NEGATIVE (NEGATIVE); GLUCOSE, URINE (UA) NEGATIVE (NEGATIVE); KETONES,URINE (UA) NEGATIVE (NEGATIVE); LEUKOCYTE ESTERASE, URINE NEGATIVE (NEGATIVE); NITRITE,URINE POSITIVE (NEGATIVE); OCCULT BLOOD,URINE TRACE-INTA (NEGATIVE); PROTEIN,URINE TRACE mg/dL (NEGATIVE); UROBILINOGEN,URINE 2 E.U./dL (NORMAL)
[2020-07-03 23:46] LABS: CLARITY,URINE CLEAR (CLEAR); RBC,URINE 0-5 /HPF (0-5); SQUAMOUS EPITHELIAL CELL,UR RARE Squamous (<= Few)
[2020-07-03 23:47] LABS: BACTERIA,URINE Moderate /HPF (None Seen)
[2020-07-04 00:13] VITALS: BP 122/67
[2020-07-04 00:30] LABS: C. PNEUMONIAE- RESP PCR PANEL NOT DETECTED
--- NOTE | 2020-07-04 08:46 | Ultrasound Report ---
PROCEDURE: Testicle w/Doppler INDICATIONS: left testicular swelling, pain TECHNIQUE: Real-time scanning was performed of the scrotum and testicles, with image documentation. Color and p ulse Doppler interrogation was performed of both testicles. COMPARISON: No prior exam is available for comparison.. FINDINGS: Right: Testicle measures 4.7 x 3.3 x 3.3 cm. A small area of decreased echogenicity is seen in the anterior midportion of the right testicle. The right epididymis is heterogeneous with increased vascu larity. A complex right hydrocele is seen with internal echoes. Overlying scrotal wall thickening is seen. Left: Testicle measures 6.5 x 3.9 x 5.3 cm. The left testicle appears enlarged and markedly heterog eneous with multiple echogenic foci compatible with gas, as seen on the subsequent CT. There is thick ening and irregularity of the left epididymis and a complex fluid surrounding the left testicle. Over lying scrotal wall thickening is noted. Doppler: Color and pulse Doppler demonstrate normal flow to the right testicle. Areas of arterial an d venous Doppler flow are seen in the left testicle. IMPRESSION: 1. Enlarged and markedly heterogeneous appearance of the left testicle is suspicious for testicular necrosis. There is a complex left hydrocele and left-sided epididymitis. Findings may be related to t esticular torsion with subsequent inflammation or infection versus a necrotizing infection. 2. Mildly heterogeneous right testicle with preserved blood flow may be secondary to mild orchitis. There is right-sided epididymitis and a small complex right-sided hydrocele. 3. Marked scrotal wall thickening is seen bilaterally. There is no significant discrepancy when compared with the overnight teleradiology report. Reviewed by: Yuniel Chaudhry MD on 07/04/2020 8:45 AM [facility] Approved by: Yuniel Chaudhry MD on 07/04/2020 8:45 AM PST Station ID: [id number]
--- NOTE | 2020-07-04 09:42 | CT Report ---
PROCEDURE: Abdomen/Pelvis W INDICATIONS: LLQ tenderness to left groin and left hemiscrotum CONTRAST: IV CONTRAST: Optiray 320 ml: 100 PO CONTRAST: *NO PO CONTRAST TECHNIQUE: After the administration of IV contrast, 5 mm thick sections acquired from the diaphragms to the symp hysis. 5 mm thick coronal and sagittal reformats were acquired. For radiation dose reduction, the f ollowing was used: automated exposure control, adjustment of mA and/or kV according to patient size. COMPARISON: CT abdomen pelvis 04/13/2019. FINDINGS: Image quality: Excellent. ABDOMEN: Lung bases: 20 mm subpleural nodule in the posterior right lower lobe on series 4 image 30. This is u nchanged compared to 2019. Heart size is normal. Solid organs: Liver and spleen are normal in size and enhancement. Gallbladder is unremarkable. Bi liary system is non dilated. Pancreas enhances normally. No adrenal nodules. Kidneys demonstrate n ormal size and enhancement, without hydronephrosis. Peritoneum and bowel: Bowel loops demonstrate normal wall thickness and caliber. No free fluid or a ir. Nodes and vessels: No retroperitoneal or mesenteric adenopathy by size criteria. Aorta and inferior vena cava are normal in size. Miscellaneous: No ventral hernias. PELVIS: Genitourinary: Bladder wall thickness is normal. Miscellaneous: Inflammatory change is present in the left inguina canal, extending into the left hem iscrotum. In addition, inflammatory changes also extend along the gonadal vessels by the psoas muscle . There is edema, fluid and inflammatory change. In addition, significant air is noted appearing to b e within the testicle. Left hydrocele is present. Bones: No suspicious bony lesions. No vertebral body compression fractures. IMPRESSION: 1. Enlarged, inflammatory change within the left inguinal canal extending to the testicle with what a ppears to be intratesticular air suggestive of necrosis. 2. Stable 20 mm subpleural right lower lobe nodule compared to 2019. Recommend interval follow-up as below, noting given size, PET scan or biopsy should be considered. Fleischner Society criteria for SOLID lung nodule followup. Nodule size (mm) * <6 * Low-risk patient: No follow-up needed * High-risk patient: Optional CT at 12 months; if no change, no further follow-up * 6-8 * Low-risk patient: Initial follow-up CT at 6-12 months, then optional CT at 18-24 months. * High-risk patient: Initial follow-up CT at CT at 6-[address] 18-24 months. * >8 single nodule * Low-risk patient: CT, PET or biopsy at 3 months. * High-risk patient: Same as for low-risk pts. * >8 multiple nodules * Low-risk patient: CT at 3-6 months, then optional CT at 18-24 months * High-risk patient: CT at 3-6 months, then CT at 18-24 months The above findings are concordant with preliminary report. Reviewed by: Rocío Chan MD on 07/04/2020 9:40 AM PST Approved by: Rocío Chan MD on 07/04/2020 9:40 AM PST Station ID: [id number]
== END 2020-07-04 00:27 | disposition short-term general hospital (02) ==
LOC: EDUNIT# → ED 21:22
DX: N50.1 Vascular disorders of male genital organs (principal); N49.2 Inflammatory disorders of scrotum; N43.3 Hydrocele, unspecified
CPT/HCPCS: 36415; 74177; 76870; 80053; 81001; 83605; 83690; 85025; 85610; 85730; 87040; 87086; 87631; 93975; 96365; 96368; 96375; 96376; 99285; A9270; J1170; Q9967; 0202U; 81003

== ENCOUNTER 2020-10-04 22:06 | Outpatient (CLI) | payer MEDICARE, MEDICAID | END 2020-10-04 22:07 | disposition critical access hospital (66) | LOC: EMS 22:06 | DX: R20.0 Anesthesia of skin (principal); R22.32 Localized swelling, mass and lump, left upper limb; R29.898 Other symptoms and signs involving the musculoskeletal system | CPT/HCPCS: A0425; A0429 ==

== ENCOUNTER 2020-10-04 22:26 | Emergency (ER) | payer MEDICARE, MEDICAID ==
[2020-10-04 22:35] VITALS: BP 140/71
--- NOTE | 2020-10-05 00:38 | ED Physician Documentation ---
History of Present Illness - Stated complaint Stated Complaint: SWOLLEN L HAND - Chief complaint Chief Complaint: Ext Problem - History obtained from History obtained from: Patient - History of Present Illness Timing: How many days ago (4) Pain level max: 0 Pain level now: 0 Improved by: nothing Worsened by: no exacerbating factors - Additonal information Additional information: patient says that 4 days ago he woke from a nap and noted weakness of his LUE; specifically with extension of left wrist, fingers and thumb. There is mild numbness (decreased sensation) of the thumb and the index finger. denies pain, including LUE and neck. denies h/o similar symptoms (has had lower extremity symptoms related to thoracic and lumbar masses and stenosis, although those were gradual onset). His symptoms have neither improved nor worsened and he presents at this time at urging of his girlfriend. Review of Systems Constitutional: reports: Reviewed and negative Cardiac: reports: Reviewed and negative Respiratory: reports: Reviewed and negative GI: reports: Reviewed and negative Musculoskeletal: reports: Reviewed and negative Neurologic: reports: Focal weakness, Numbness. denies: Headache PD PAST MEDICAL HISTORY - Past Medical History Cardiovascular: Murmur Respiratory: Asthma Neuro: None Endocrine/Autoimmune: None GI: Chronic constipation : Incontinence HEENT: None Psych: Depression Musculoskeletal: Chronic back pain Derm: Other - Past Surgical History Past Surgical History: Yes Ortho: Spine surgery HEENT: Tonsil/Adenoidectomy - Present Medications Home Medications: Ambulatory Orders Medication Instructions Recorded Confirmed Pregabalin [Lyrica] 225 mg PO BID 10/04/20 10/04/20 - Allergies Allergies/Adverse Reactions: Allergies Allergy/AdvReac Type Severity Reaction Status Date / Time morphine Allergy Intermediate terrors Verified 10/04/20 22:35 - Social History Does the pt smoke?: No Smoking Status: Never smoker Does the pt drink ETOH?: Yes Does the pt have substance abuse?: No - Immunizations Immunizations are current?: Yes - POLST Patient has POLST: No PD ED PE NORMAL - Vitals Vital signs reviewed: Yes - General General: Alert and oriented X 3, No acute distress, Well developed/nourished - Neck Neck: Supple, no meningeal sign, No bony TTP - Derm Derm: Normal color, Warm and dry, No rash - Extremities Extremities: No deformity, No tenderness to palpate, No edema PD ED PE EXPANDED - Neuro Neuro: Weakness, Abnormal sensation (decreased LTS dorsal surface of thumb and index finger (compared to other left digits as well as digits of right hand)), Other (normal left timber rider strength normal left finger and wrist flexion. 2/5 left wrist extension, 2/5 left thumb. brisk capillary refill in all left digits. n ormal strength left elbow (flex/ext) and FROM and normal strength left shoulder) Results - Vitals Vitals: Oxygen O2 Source Room air - Labs Labs: Laboratory Tests 10/05/20 10/05/20 01:30 01:30 WBC 4.3 L RBC 4.67 L Hgb 13.8 L Hct 44.2 MCV 94.6 H MCH 29.6 MCHC 31.2 L RDW 15.0 Plt Count 203 MPV 12.1 H Neut # (Auto) 2.7 Lymph # (Auto) 1.1 L [place] # (Auto) 0.3 Eos # (Auto) 0.2 Baso # (Auto) 0.0 Absolute Nucleated RBC 0.00 Nucleated RBC % 0.0 Sodium 144 Potassium 3.8 Chloride 105 Carbon Dioxide 31 Anion Gap 8.0 BUN 17 Creatinine 0.7 Estimated GFR (MDRD) 123 Glucose 147 H Calcium 9.0 Total Bilirubin 0.6 AST 30 ALT 40 Alkaline Phosphatase 53 Total Protein 7.1 Albumin 3.6 Globulin 3.5 Albumin/Globulin Ratio 1.0 Lipase 25 - Rads (name of study) CTA head Radiology: Prelim report reviewed, See rad report CT neck angio Radiology: Prelim report reviewed, See rad report PD MEDICAL DECISION MAKING - ED course Complexity details: reviewed old records, reviewed results, re-evaluated patient, considered differential, d/w patient ED course: HPI and exam are consistent with radial nerve palsy. That the symptoms are limited to wrist/digit extension with sparing of elbow and shoulder strength/ROM would be quite atypical for CVA or other central lesion (such as mass), and tonight's testing (including CTA head/neck) do not demonstrate any findings that would cause nor contribute to his symptoms. I discussed my suspected diagnosis and the test results with patient, instructed to seek f/u with neurology (which would likely require referral through his primary care provider). Departure - Departure Disposition: 01 Home, Self Care Clinical Impression: Left radial nerve palsy Condition: Good Instructions: ED Palsy Radial Nerve, ED Drop Wrist Follow-Up: Danika García PA-C [Primary Care Provider] - Comments: As we discussed, you will need further evaluation and likely will be referred to a neurologist. Contact your primary care provider's office to arrange an appointment; you might need to be evaluated by your primary care provider in order to be referred to a specialist. Discharge Date/Time: 10/05/20 03:49
[2020-10-05] MEDS ORDERED: IOVERSOL 320 100 ML VIAL IVP ONE ×2 (01:34→02:19)
[2020-10-05 01:38] LABS: BASOPHILS % (AUTO) 0.7 %; EOSINOPHILS # (AUTO) 0.2 10^3/uL (0.0-0.7); EOSINOPHILS % (AUTO) 4.6 %; HGB - HEMOGLOBIN 13.8 g/dL (14.0-18.0); LYMPHOCYTES # (AUTO) 1.1 10^3/uL (1.5-3.5); MEAN CORPUSCULAR HEMOGLOBIN 29.6 pg (27.0-31.0); MEAN CORPUSCULAR HGB CONC 31.2 g/dL (32.0-36.0); MEAN CORPUSCULAR VOLUME 94.6 fL (80.0-94.0); MEAN PLATELET VOLUME 12.1 fL (7.4-11.4); MONOCYTES # (AUTO) 0.3 10^3/uL (0.0-1.0); MONOCYTES % (AUTO) 6.7 %; NEUTROPHILS # (AUTO) 2.7 10^3/uL (1.5-6.6); PLT - PLATELET COUNT 203 10^3/uL (130-450); RED BLOOD COUNT 4.67 10^6/uL (4.70-6.10); WHITE BLOOD COUNT 4.3 x10^3/uL (4.8-10.8)
[2020-10-05 01:51] LABS: ALBUMIN 3.6 g/dL (3.2-5.5); BILIRUBIN,TOTAL 0.6 mg/dL (0.2-1.0); CREATININE 0.7 mg/dL (0.6-1.2); TOTAL PROTEIN 7.1 g/dL (6.7-8.2)
--- NOTE | 2020-10-05 07:27 | CT Report ---
PROCEDURE: ANGIO HEAD W/WO INDICATIONS: L sided facial droop CONTRAST: IV CONTRAST: Optiray 320 ml: 80 PO CONTRAST: *NO PO CONTRAST TECHNIQUE: Precontrast 4.5 mm thick angled axial sections acquired from the foramen magnum to the vertex. Afte r the administration of intravenous contrast, 1 mm thick sections acquired through the [place] of [place] is. Postcontrast 4.5 mm thick sections then re-acquired from the foramen magnum to the vertex. 3-di mensional numdysn-vcbuycmyz-vldnhzsfgc (MIP) and/or volume rendering reformats were acquired of the c entral intracranial vasculature. For radiation dose reduction, the following was used: automated ex posure control, adjustment of mA and/or kV according to patient size. COMPARISON: None FINDINGS: Image quality: Excellent. Anterior circulation: Intracranial internal carotid arteries are normal in size and flow. The flow within the paired anterior cerebral arteries is normal and symmetric. The flow within the middle cer ebral arteries is normal and symmetric. The anterior communicating artery is seen. No aneurysms are seen. Posterior circulation: Visualized portions of the vertebral arteries demonstrate normal caliber, and join to form a normal appearing basilar artery. Flow within the posterior cerebral arteries is norm al and symmetric. The posterior cerebral artery has a origin. No aneurysms are seen. Dural sinuses demonstrate normal postcontrast enhancement. CSF spaces: Ventricles are normal in size and shape. Basal cisterns are patent. No extra-axial flu id collections. Brain: No midline shift. No intracranial bleeds or masses. Amaral-white matter interface appears int act. Skull and face: Calvarium and facial bones appear intact, without suspicious lesions. Sinuses: Polypoid mucosal thickening noted in the maxillary sinuses. Mastoids are clear. IMPRESSION: 1. No acute intracranial disease process. 2. No large vessel occlusion, vascular stenosis, vascular dissection or aneurysm. Reviewed by: Audra Mishra MD, PhD on 10/05/2020 7:25 AM PST Approved by: Audra Mishra MD, PhD on 10/05/2020 7:25 AM PST Station ID: [id number]
--- NOTE | 2020-10-05 07:37 | CT Report ---
PROCEDURE: ANGIO NECK W INDICATIONS: L sided facial droop, L neck pain CONTRAST: IV CONTRAST: Optiray 320 ml: 80 PO CONTRAST: *NO PO CONTRAST TECHNIQUE: After the administration of intravenous contrast, 1.5 mm axial sections acquired from the aortic arch to the [place] of [place]. Coronal 3-D maximum intensity projection (MIP) and/or volume rendering ref ormats were then performed. For radiation dose reduction, the following was used: automated exposur e control, adjustment of mA and/or kV according to patient size. COMPARISON: None. FINDINGS: Image quality: Excellent. Carotid system: The great vessels demonstrate a conventional anatomy as they arise from the aortic a rch. The origins of the common carotid arteries appear patent. The common carotid arteries demonstr ate normal calibers and courses. The bifurcation regions appear normal bilaterally. The internal ca rotid arteries demonstrate normal course. Minimal atherosclerotic irregularity noted in the origins o f the internal carotid arteries bilaterally. Posterior circulation: The origins of the vertebral arteries appear patent. The more superior porti ons of the vertebral arteries demonstrate normal course and caliber. They join to form a normal appe aring basilar artery. Soft tissues: Visualized neck soft tissues demonstrate no suspicious abnormalities. The thyroid gla nd is normal in size. Polypoid mucosal thickening noted in the maxillary sinuses bilaterally. Bones: No suspicious bony lesions. Visualized cervical spine appears normally aligned. IMPRESSION: 1. Minimal atherosclerotic irregularity no origins of the internal carotid arteries bilaterally witho ut measurable stenosis. 2. Vertebral arteries are fully patent. The estimate of stenosis included in the report of the imaging study was calculated using the NASCET method Reviewed by: Audra Mishra MD, PhD on 10/05/2020 7:36 AM PST Approved by: Audra Mishra MD, PhD on 10/05/2020 7:36 AM PST Station ID: [id number]
== END 2020-10-05 03:49 | disposition home or self-care (01) ==
LOC: EDUNIT# → ED 22:26
DX: G56.32 Lesion of radial nerve, left upper limb (principal)
CPT/HCPCS: 36415; 70496; 70498; 80053; 83690; 85025; 99284; Q9967

== ENCOUNTER 2020-11-12 17:18 | Outpatient (CLI) | payer MEDICARE, MEDICAID | END 2020-11-12 17:19 | disposition critical access hospital (66) | LOC: EMS 17:18 | PROVIDERS: ATTEND Emergency Medicine | DX: R10.30 Lower abdominal pain, unspecified (principal) | CPT/HCPCS: A0425; A0427 ==

== ENCOUNTER 2020-11-12 17:40 | Emergency (ER) | payer MEDICARE, MEDICAID ==
[2020-11-12] MEDS ORDERED: HYDROmorphone 1 MG/ML CARPUJECT IVP STA ×3 (17:49→21:34)
[2020-11-12] MEDS ORDERED: SODIUM CHLORIDE 0.9% 1,000 ML IV STA ×2 (17:49→18:49)
[2020-11-12] MEDS ORDERED: ONDANSETRON 4 MG/2 ML VIAL IVP STA (17:49)
--- NOTE | 2020-11-12 17:55 | ED Physician Documentation ---
History of Present Illness - Stated complaint Stated Complaint: LOWER ABD PX - Additonal information Additional information: 45-year-old male presents the emergency department for evaluation of acute right lower quadrant pain that radiates to his shoulder. Began about 1 hour prior to arrival no nausea vomiting. Denies dysuria. This gentleman does report a history of a "neurogenic bladder" and does state that it has been somewhat uncomfortable to urinate last 24 hours. Review of Systems Constitutional: denies: Fever, Chills Eyes: reports: Reviewed and negative Ears: reports: Reviewed and negative Nose: reports: Reviewed and negative Throat: reports: Reviewed and negative Cardiac: reports: Reviewed and negative Respiratory: reports: Reviewed and negative GI: reports: Abdominal Pain, Nausea. denies: Vomiting, Constipation, Diarrhea : reports: Dysuria. denies: Frequency, Hesitancy Skin: reports: Rash Musculoskeletal: reports: Back pain Neurologic: denies: Headache, Head injury, LOC PD PAST MEDICAL HISTORY - Past Medical History Cardiovascular: Murmur Respiratory: Asthma Neuro: None Endocrine/Autoimmune: None GI: Chronic constipation : Incontinence HEENT: None Psych: Depression Musculoskeletal: Chronic back pain Derm: Other - Past Surgical History Past Surgical History: Yes Ortho: Spine surgery HEENT: Tonsil/Adenoidectomy - Present Medications Home Medications: Ambulatory Orders Medication Instructions Recorded Confirmed Pregabalin [Lyrica] 225 mg PO BID 10/04/20 10/04/20 - Allergies Allergies/Adverse Reactions: Allergies Allergy/AdvReac Type Severity Reaction Status Date / Time morphine Allergy Intermediate terrors Verified 11/12/20 17:48 - Social History Does the pt smoke?: No Smoking Status: Never smoker Does the pt drink ETOH?: Yes Does the pt have substance abuse?: No - Immunizations Immunizations are current?: Yes - POLST Patient has POLST: No PD ED PE EXPANDED - General General: Disheveled, poorly kept, In Pain, In distress - HEENT HEENT: PERRL - Cardiac Cardiac: Tachy, Radial strong equal. No: Murmur Present - Respiratory Respiratory: Clear to ausultation grant. No: Distress, Labored - Abdomen Abdomen: Tender to palpation, Rebound, Guarding, RLQ - Back Back: Normal exam. No: CVA TTP right, CVA TTP left - Derm Derm: Normal color, Warm and dry - Neuro Neuro: Alert and Oriented X 3, CNII-XII intact - GCS Eye Opening: Spontaneous Motor: Obeys Commands Verbal: Oriented Total: 15 Results - Vitals Vitals: Vital Signs - 24 hr 11/12/20 11/12/20 11/12/20 17:49 17:54 19:54 Temperature 36.5 C 36.5 C Heart Rate 97 97 92 Respiratory 16 16 16 Rate Blood Pressure 136/87 H 136/87 H 132/88 H O2 Saturation 97 97 98 11/12/20 21:04 Temperature Heart Rate 102 H Respiratory 18 Rate Blood Pressure 130/83 H O2 Saturation 99 Oxygen O2 Source Room air - Labs Labs: Laboratory Tests 11/12/20 11/12/20 11/12/20 18:07 18:07 18:20 WBC 11.8 H RBC 5.19 Hgb 14.8 Hct 44.6 MCV 85.9 MCH 28.5 MCHC 33.2 RDW 15.2 H Plt Count 166 MPV 12.9 H Neut # (Auto) 10.4 H Lymph # (Auto) 0.5 L [place] # (Auto) 0.7 Eos # (Auto) 0.0 Baso # (Auto) 0.1 Absolute Nucleated RBC 0.00 Nucleated RBC % 0.0 Sodium 136 Potassium 3.1 L Chloride 100 L Carbon Dioxide 20 L Anion Gap 16.0 H BUN 37 H Creatinine 1.7 H Estimated GFR (MDRD) 44 L Glucose 125 H Calcium 8.5 Total Bilirubin 0.7 AST 24 ALT 25 Alkaline Phosphatase 58 Total Protein 6.9 Albumin 3.0 L Globulin 3.9 Albumin/Globulin Ratio 0.8 L Lipase 146 H Urine Color YELLOW Urine Clarity CLOUDY Urine pH 8.0 H Ur Specific [place] 1.015 Urine Protein 100 H Urine Glucose (UA) NEGATIVE Urine Ketones 15 H Urine Occult Blood MODERATE H Urine Nitrite POSITIVE H Urine Bilirubin NEGATIVE Urine Urobilinogen 1 (NORMAL) Ur Leukocyte Esterase LARGE H Urine RBC 6-10 H Urine WBC >25 H Ur Squamous Epith Cells RARE Squamous Amorphous Sediment Marked Urine Bacteria Moderate H Ur Microscopic Review INDICATED Urine Culture Comments INDICATED - Rads (name of study) CT abd Radiology: Final report received (Edematous right kidney with mild to moderate hydronephrosis and hydroureter secondary to a proximal ureteral calculus as well as a second distal right ureteral calculus at the UVJ. Mild diffuse thickening of the bladder) PD MEDICAL DECISION MAKING - ED course Complexity details: reviewed results, re-evaluated patient, considered differential, d/w patient ED course: 45-year-old male presents to the emergency department with acute right lower quadrant belly pain that radiates to his shoulder. He does report a history of a neurogenic bladder and some intermittent dysuria over the last 24 hours. Screening labs do show a moderate leukocytosis as well as mild renal insufficiency with creatinine 1.7 BUN 27. His urine is consistent with infection. A CT scan of the abdomen does show right-sided h ydroureter/hydronephrosis with an obstructing 5 mm UVJ stone. Crystalloid was orLactate is not elevated. Blood cultures are pending. GERD as well as 1 g of ceftriaxone and Flomax I initially spoke with Dr. Suárez urology on-call at [facility] he agrees to accept the patient in transfer. I then spoke with Dr. Bradshaw hospitalist at [facility] and patient will be transferred once PCR for COVID-19 results are known. Appropriate COBRA paperwork completed patient updated to plan of care. Departure - Departure Disposition: 02 Transfer Acute Care Hosp Clinical Impression: Cystitis, Neurogenic bladder, Renal insufficiency Hydronephrosis Qualifiers: Hydronephrosis type: with ureteropelvic junction obstruction Qualified Code(s): Q62.11 - Congenital occlusion of ureteropelvic junction
[2020-11-12] MEDS ORDERED: IOVERSOL 320 100 ML VIAL IVP ONE ×2 (18:07→19:05)
[2020-11-12 18:12] LABS: BASOPHILS # (AUTO) 0.1 10^3/uL (0.0-0.1); BASOPHILS % (AUTO) 0.5 %; EOSINOPHILS % (AUTO) 0.1 %; HCT - HEMATOCRIT 44.6 % (42.0-52.0); HGB - HEMOGLOBIN 14.8 g/dL (14.0-18.0); LYMPHOCYTES # (AUTO) 0.5 10^3/uL (1.5-3.5); MEAN CORPUSCULAR HEMOGLOBIN 28.5 pg (27.0-31.0); MEAN CORPUSCULAR HGB CONC 33.2 g/dL (32.0-36.0); MEAN CORPUSCULAR VOLUME 85.9 fL (80.0-94.0); MEAN PLATELET VOLUME 12.9 fL (7.4-11.4); MONOCYTES # (AUTO) 0.7 10^3/uL (0.0-1.0); MONOCYTES % (AUTO) 6.3 %; NEUTROPHILS # (AUTO) 10.4 10^3/uL (1.5-6.6); NEUTROPHILS % (AUTO) 88.5 %; PLT - PLATELET COUNT 166 10^3/uL (130-450); RED BLOOD COUNT 5.19 10^6/uL (4.70-6.10); RED CELL DISTRIBUTION WIDTH 15.2 % (12.0-15.0); WHITE BLOOD COUNT 11.8 x10^3/uL (4.8-10.8)
[2020-11-12 18:28] LABS: ALBUMIN/GLOBULIN RATIO 0.8 (1.0-2.2); BILIRUBIN,TOTAL 0.7 mg/dL (0.2-1.0); CALCIUM 8.5 mg/dL (8.5-10.3); CREATININE 1.7 mg/dL (0.6-1.2); POTASSIUM 3.1 mmol/L (3.5-5.0); TOTAL PROTEIN 6.9 g/dL (6.7-8.2)
[2020-11-12 18:29] LABS: BILIRUBIN,URINE NEGATIVE (NEGATIVE); GLUCOSE, URINE (UA) NEGATIVE (NEGATIVE); KETONES,URINE (UA) 15 mg/dL (NEGATIVE); LEUKOCYTE ESTERASE, URINE LARGE (NEGATIVE); NITRITE,URINE POSITIVE (NEGATIVE); OCCULT BLOOD,URINE MODERATE (NEGATIVE); PROTEIN,URINE 100 mg/dL (NEGATIVE); UROBILINOGEN,URINE 1 (NORMAL) E.U./dL (NORMAL)
[2020-11-12 18:33] LABS: CLARITY,URINE CLOUDY (CLEAR)
[2020-11-12 18:57] LABS: WBC,URINE >25 /HPF (0-3)
[2020-11-12 18:58] LABS: AMORPHOUS SEDIMENT,UR Marked /LPF; BACTERIA,URINE Moderate /HPF (None Seen); SQUAMOUS EPITHELIAL CELL,UR RARE Squamous (<= Few)
[2020-11-12] MEDS ORDERED: cefTRIAXone 1 GM in SODIUM CHLORIDE 0.9% MINIBAG 100 ML IV STA (19:03)
--- NOTE | 2020-11-12 19:26 | CT Report ---
PROCEDURE: Abdomen/Pelvis W INDICATIONS: RLQ abdominal pain radiates to shoulder TECHNIQUE: After the administration of intravenous contrast, 5 mm thick sections acquired from the diaphragms to the symphysis. 2.5 mm thick coronal and sagittal reformats were acquired. Optional 10-minute delay ed imaging may be performed from the kidneys to the bladder. For radiation dose reduction, the follo wing was used: automated exposure control, adjustment of mA and/or kV according to patient size. COMPARISON: CT abdomen pelvis 07/03/2020 FINDINGS: Image quality: Excellent. ABDOMEN: Lung bases: Lung bases are clear. Heart size is normal. No pericardial effusion. Inferior ribs ar e intact. No basal pleural effusions or pneumothorax. Solid organs: Liver and spleen are enlarged without focal lesion. Gallbladder is unremarkable. Saúl iary system is non-dilated. Pancreas enhances normally, without transection. No adrenal hematomas. Both kidneys enhance normally. There is mild edema of the right kidney with mild to moderate hydron ephrosis. There is mild to moderate proximal hydroureter with a 3 mm proximal right ureteral calculus . In addition, there is mild to moderate hydroureter within the mid and distal portion with a 5 mm ca lculus at the right ureterovesicular junction. Peritoneum and bowel: No free air. Unenhanced bowel loops demonstrate normal wall thickness and bill iber. Appendix is normal. Moderate stool is present. Mild perihepatic fluid is present. Nodes and vessels: No retroperitoneal or mesenteric adenopathy. Aorta and inferior vena cava are no rmal in size and enhancement. Miscellaneous: No ventral hernias. PELVIS: Genitourinary: Bladder wall demonstrates mild diffuse thickening. Miscellaneous: No inguinal hernias or adenopathy. Bones: Pelvic ring and hip joints appear intact. No vertebral compression fractures. IMPRESSION: 1. Edematous right kidney with mild to moderate hydronephrosis and hydroureter secondary to a proxima l ureteral calculus, as well as a second distal right ureteral calculus at the ureterovesicular junct ion. 2. Mild diffuse thickening of the bladder. This is nonspecific and could be secondary to incomplete d istention. Similar appearance can be seen with cystitis and clinical correlation is recommended. Reviewed by: Rocío Chan MD on 11/12/2020 7:24 PM PDT Approved by: Rocío Chan MD on 11/12/2020 7:24 PM PDT Station ID: [id number]
[2020-11-12] MEDS ORDERED: cefTRIAXone 1 GM VIAL ONE (19:27)
[2020-11-12] MEDS ORDERED: TAMSULOSIN 0.4 MG CAPSULE PO STA (20:11)
[2020-11-12 21:05] VITALS: BP 130/83
[2020-11-12 21:15] LABS: CORONAVIRUS 229E-RESP PCR NOT DETECTED; CORONAVIRUS HKU1-RESP PCR NOT DETECTED
[2020-11-12 21:16] LABS: B. PARAPERTUSSIS- RESP PCR PAN NOT DETECTED; B. PERTUSSIS- RESP PCR PANEL NOT DETECTED; C. PNEUMONIAE- RESP PCR PANEL NOT DETECTED; CORONAVIRUS NL63-RESP PCR NOT DETECTED; CORONAVIRUS OC43-RESP PCR NOT DETECTED; HUMAN METAPNEUMOVIRUS NOT DETECTED; INFLUENZA A- RESP PCR PANEL NOT DETECTED; INFLUENZA B - RESP PCR PANEL NOT DETECTED; M. PNEUMONIAE- RESP PCR PANEL NOT DETECTED; PARAINFLUENZA VIRUS 1 NOT DETECTED; PARAINFLUENZA VIRUS 2 NOT DETECTED; PARAINFLUENZA VIRUS 3 NOT DETECTED; PARAINFLUENZA VIRUS 4 NOT DETECTED; RHINOVIRUS/ENTEROVIRUS NOT DETECTED; RSV- RESP PCR PANEL NOT DETECTED; SARS-CoV-2 -RESP PCR PANEL NOT DETECTED
== END 2020-11-12 21:38 | disposition short-term general hospital (02) ==
LOC: EDUNIT# → ED 17:40
DX: N31.2 Flaccid neuropathic bladder, not elsewhere classified (principal); N31.9 Neuromuscular dysfunction of bladder, unspecified; N28.9 Disorder of kidney and ureter, unspecified; N30.90 Cystitis, unspecified without hematuria; N13.0 Hydronephrosis with ureteropelvic junction obstruction; Z20.822 Contact with and (suspected) exposure to COVID-19
CPT/HCPCS: 36415; 74177; 80053; 81001; 83690; 85025; 87040; 87077; 87086; 87150; 87181; 87631; 96361; 96365; 96375; 96376; 99284; 99285; A9270; J1170; Q9967; 0202U; 81003

== ENCOUNTER 2020-11-12 21:44 | Outpatient (CLI) | payer MEDICARE, MEDICAID | END 2020-11-12 21:45 | disposition short-term general hospital (02) | LOC: EMS 21:44 | PROVIDERS: ATTEND Registered Nurse | DX: M54.5 Low back pain (principal); N31.2 Flaccid neuropathic bladder, not elsewhere classified; N39.0 Urinary tract infection, site not specified; N20.1 Calculus of ureter | CPT/HCPCS: A0425; A0428 ==

== ENCOUNTER 2020-12-25 17:41 | Outpatient (CLI) | payer MEDICARE, MEDICAID | END 2020-12-25 17:42 | disposition critical access hospital (66) | LOC: EMS 17:41 | DX: R10.12 Left upper quadrant pain (principal) | CPT/HCPCS: A0425; A0429 ==

== ENCOUNTER 2020-12-25 18:05 | Emergency (ER) | payer MEDICARE, MEDICAID ==
[2020-12-25 18:35] LABS: BASOPHILS # (AUTO) 0.1 10^3/uL (0.0-0.1); BASOPHILS % (AUTO) 0.9 %; EOSINOPHILS # (AUTO) 0.3 10^3/uL (0.0-0.7); EOSINOPHILS % (AUTO) 6.2 %; HCT - HEMATOCRIT 35.8 % (42.0-52.0); HGB - HEMOGLOBIN 11.4 g/dL (14.0-18.0); LYMPHOCYTES # (AUTO) 1.1 10^3/uL (1.5-3.5); LYMPHOCYTES % (AUTO) 19.4 %; MEAN CORPUSCULAR HEMOGLOBIN 28.8 pg (27.0-31.0); MEAN CORPUSCULAR HGB CONC 31.8 g/dL (32.0-36.0); MEAN CORPUSCULAR VOLUME 90.4 fL (80.0-94.0); MEAN PLATELET VOLUME 11.5 fL (7.4-11.4); MONOCYTES # (AUTO) 0.4 10^3/uL (0.0-1.0); MONOCYTES % (AUTO) 6.5 %; NEUTROPHILS # (AUTO) 3.7 10^3/uL (1.5-6.6); NEUTROPHILS % (AUTO) 66.8 %; PLT - PLATELET COUNT 249 10^3/uL (130-450); RED BLOOD COUNT 3.96 10^6/uL (4.70-6.10); RED CELL DISTRIBUTION WIDTH 15.6 % (12.0-15.0); WHITE BLOOD COUNT 5.5 x10^3/uL (4.8-10.8)
[2020-12-25] MEDS ORDERED: IOPAMIDOL-300 100 ML VIAL ONE (18:35)
--- NOTE | 2020-12-25 18:47 | ED Physician Documentation ---
History of Present Illness - Stated complaint Stated Complaint: ABD PX - Chief complaint Chief Complaint: Abd Pain - Additonal information Additional information: 45-year-old male presents the emergency department for evaluation of acute onset left lower quadrant abdominal pain. This gentleman was transferred from to [facility] on November 12, 2020 for sepsis secondary to a right obstructing stone. He underwent a right ureter riya nt placement and was treated with IV antibiotics. However unfortunately a few days later he developed a gastric perforation with a subphrenic abscess and underwent washout by general surgery. He was maintained on IV antibiotics and repeat CT scan shows residual abscess that was not amenable to drain. In consultation with infectious disease they recommended IV antibiotics with ertapenem and caspofungin at least until 12/09/2020. He would then need repeat CT scan to ensure resolution of abscess. Patient had a PICC line placed and was started on home IV antibiotics with infusion solutions. Review of Systems Constitutional: denies: Fever, Chills Eyes: reports: Reviewed and negative Ears: reports: Reviewed and negative Nose: reports: Reviewed and negative Throat: reports: Reviewed and negative Cardiac: reports: Reviewed and negative Respiratory: reports: Reviewed and negative GI: reports: Abdominal Pain. denies: Nausea, Vomiting : reports: Unable to Void (Neurogenic bladder.). denies: Dysuria Skin: reports: Reviewed and negative Musculoskeletal: reports: Reviewed and negative PD PAST MEDICAL HISTORY - Past Medical History Past Medical History: Yes Cardiovascular: Murmur Respiratory: Asthma Neuro: None Endocrine/Autoimmune: None GI: Chronic constipation : Incontinence HEENT: None Psych: Depression Musculoskeletal: Chronic back pain Derm: Other - Past Surgical History Past Surgical History: Yes General: Gastric surgery Ortho: Spine surgery HEENT: Tonsil/Adenoidectomy - Present Medications Home Medications: Ambulatory Orders Medication Instructions Recorded Confirmed Pregabalin [Lyrica] 225 mg PO BID 10/04/20 12/25/20 - Allergies Allergies/Adverse Reactions: Allergies Allergy/AdvReac Type Severity Reaction Status Date / Time morphine Allergy Intermediate terrors Verified 12/25/20 18:15 - Social History Does the pt smoke?: Yes Smoking Status: Current some day smoker Does the pt drink ETOH?: Yes Does the pt have substance abuse?: No - Immunizations Immunizations are current?: Yes - POLST Patient has POLST: No PD ED PE EXPANDED - General General: Alert, In Pain - HEENT HEENT: Dental decay. No: Dentition normal - Cardiac Cardiac: Regular Rate, Radial strong equal, Pedal strong equal, Cap refill < 2 sec - Respiratory Respiratory: Clear to ausultation grant. No: Distress, Labored - Abdomen Abdomen: Tender to palpation, Generalized/diffuse (Diffusely tender abdomen most focal in the left lower quadrant. Some guarding but no rebound.), Surgical scars (Well-healed midline surgical incision.) - Extremities Extremities: Normal. No: Tenderness - Neuro Neuro: Alert and Oriented X 3, CNII-XII intact Results - Vitals Vitals: Vital Signs - 24 hr 12/25/20 12/25/20 12/25/20 18:15 18:34 20:57 Temperature 37.1 C 37 C 37.2 C Heart Rate 78 77 78 Respiratory 18 16 16 Rate Blood Pressure 144/100 H 136/98 H 154/108 H O2 Saturation 99 94 98 12/25/20 22:00 Temperature Heart Rate 78 Respiratory 16 Rate Blood Pressure 130/100 H O2 Saturation 96 Oxygen O2 Source Room air - Labs Labs: Laboratory Tests 12/25/20 12/25/20 12/25/20 18:31 18:31 18:31 WBC 5.5 RBC 3.96 L Hgb 11.4 L Hct 35.8 L MCV 90.4 MCH 28.8 MCHC 31.8 L RDW 15.6 H Plt Count 249 MPV 11.5 H Neut # (Auto) 3.7 Lymph # (Auto) 1.1 L [place] # (Auto) 0.4 Eos # (Auto) 0.3 Baso # (Auto) 0.1 Absolute Nucleated RBC 0.00 Nucleated RBC % 0.0 Sodium 142 Potassium 3.5 Chloride 102 Carbon Dioxide 32 Anion Gap 8.0 BUN 10 Creatinine 0.8 Estimated GFR (MDRD) 106 Glucose 98 Lactic Acid 0.7 Calcium 8.6 Total Bilirubin 0.4 AST 26 ALT 26 Alkaline Phosphatase 91 Total Protein 6.5 L Albumin 3.1 L Globulin 3.4 Albumin/Globulin Ratio 0.9 L Lipase 36 Urine Color Urine Clarity Urine pH Ur Specific [place] Urine Protein Urine Glucose (UA) Urine Ketones Urine Occult Blood Urine Nitrite Urine Bilirubin Urine Urobilinogen Ur Leukocyte Esterase Urine RBC Urine WBC Ur Squamous Epith Cells Urine Bacteria Ur Microscopic Review Urine Culture Comments Nasal Adenovirus (PCR) Nasal B. parapertussis DNA (PCR) Nasal Coronavir 229E PCR Nasal Coronavir HKU1 PCR Nasal Coronavir NL63 PCR Nasal Coronavir OC43 PCR Nasal Enterovir/Rhinovir PCR Nasal Influenza B PCR Nasal Influenza A PCR Nasal Parainfluen 1 PCR Nasal Parainfluen 2 PCR Nasal Parainfluen 3 PCR Nasal Parainfluen 4 PCR Nasal RSV (PCR) Nasal B.pertussis DNA PCR Nasal C.pneumoniae (PCR) Tito Human Metapneumo PCR Nasal M.pneumoniae (PCR) Nasal SARS-CoV-2 (PCR) 12/25/20 12/25/20 19:00 21:25 WBC RBC Hgb Hct MCV MCH MCHC RDW Plt Count MPV Neut # (Auto) Lymph # (Auto) [place] # (Auto) Eos # (Auto) Baso # (Auto) Absolute Nucleated RBC Nucleated RBC % Sodium Potassium Chloride Carbon Dioxide Anion Gap BUN Creatinine Estimated GFR (MDRD) Glucose Lactic Acid Calcium Total Bilirubin AST ALT Alkaline Phosphatase Total Protein Albumin Globulin Albumin/Globulin Ratio Lipase Urine Color YELLOW Urine Clarity CLEAR Urine pH 7.0 Ur Specific [place] 1.020 Urine Protein NEGATIVE Urine Glucose (UA) NEGATIVE Urine Ketones NEGATIVE Urine Occult Blood SMALL H Urine Nitrite NEGATIVE Urine Bilirubin NEGATIVE Urine Urobilinogen 0.2 (NORMAL) Ur Leukocyte Esterase NEGATIVE Urine RBC 11-25 H Urine WBC 0-3 Ur Squamous Epith Cells FEW Squamous Urine Bacteria None Seen Ur Microscopic Review INDICATED Urine Culture Comments NOT INDICATED Nasal Adenovirus (PCR) NOT DETECTED Nasal B. parapertussis DNA (PCR) NOT DETECTED Nasal Coronavir 229E PCR NOT DETECTED Nasal Coronavir HKU1 PCR NOT DETECTED Nasal Coronavir NL63 PCR NOT DETECTED Nasal Coronavir OC43 PCR NOT DETECTED Nasal Enterovir/Rhinovir PCR NOT DETECTED Nasal Influenza B PCR NOT DETECTED Nasal Influenza A PCR NOT DETECTED Nasal Parainfluen 1 PCR NOT DETECTED Nasal Parainfluen 2 PCR NOT DETECTED Nasal Parainfluen 3 PCR NOT DETECTED Nasal Parainfluen 4 PCR NOT DETECTED Nasal RSV (PCR) NOT DETECTED Nasal B.pertussis DNA PCR NOT DETECTED Nasal C.pneumoniae (PCR) NOT DETECTED [place]ito Human Metapneumo PCR NOT DETECTED Nasal M.pneumoniae (PCR) NOT DETECTED Nasal SARS-CoV-2 (PCR) NOT DETECTED - Rads (name of study) CT abd Radiology: Final report received (Rim-enhancing fluid subdiaphragmatic fluid collection overlying the right hepatic dome suspicious for abscess. Small bowel obstruction of the left abdomen. Mild hydronephrosis with double-J ureter stent in the appropriate position. Splenomegaly.) PD MEDICAL DECISION MAKING - ED course Complexity details: reviewed results, re-evaluated patient, d/w patient ED course: 45-year-old male presents to this emergency department for evaluation of acute onset left lower quadrant abdominal pain. This is in the setting of a known history of neurogenic bladder secondary to previous spinal surgery. He was unfortunately recently transferred to [facility] (11/12/20) with urosepsis secondary to a UVJ stone and under went right ureter stent placement and was started on antibiotics. However unfortunately a few days post stenting he developed a gastric perforation with subphrenic abscess and underwent washout by general surgery. A repeat CT scan showed residual abscess not amenable to drain therefore he was started on IV antibiotics with ertapenem and caspofungin through a PICC line. On today's presentation his abdominal pain is acute not accompanied by fevers or vomiting diarrhea. Screening labs do not reveal any leukocytosis. Urine is not consistent with infection. Unfortunately a CT scan completed today continues to show a fairly large subdiaphragmatic abscess measuring at greatest diameter of nearly 9 cm. There is also findings of a small bowel obstruction. This case was briefly discussed with our on-call surgeon Dr. Venegas and he feels that the abscess is likely the cause of the obstruction and given its size diameters likely requires IR drainage and therefore cannot be admitted here to [facility]. We have reached out to [facility] as well as [facility] but no beds are available. [facility] is holding in their emergency department and will call us later. We will continue to reach out to other hospitals for further treatment of his abscess and bowel obstruction including [facility] and [facility]. 0: I have spoken with transfer center they are unsure if beds are available, but will reach out to general surgery team. They have asked me to reach out again to the general surgery team at [facility] to see if they can accept the patient. I did speak on the phone with Dr. Radha Jerome general surgeon on- call at [facility]. She tells me that they could accept the patient back if there are beds available. We did confirm again with [facility] that there are no beds available therefore we are not able to transfer the patient to [facility]. 5: Dr. Rojo on-call trauma surgeon at [facility] has graciously agreed to accept the patient for their evaluation and treatment of the intra-abdominal abscess and small bowel obstruction. She is requesting 18 Czech or larger nasogastric tube be inserted prior to transfer. Appropriate COBRA paperwork completed. Pt informed of impending transfer Departure - Departure Disposition: 02 Transfer Acute Care Hosp Clinical Impression: Small bowel obstruction, Intra-abdominal abscess, Neurogenic bladder Condition: Serious
[2020-12-25 18:50] LABS: ALBUMIN 3.1 g/dL (3.2-5.5); ALBUMIN/GLOBULIN RATIO 0.9 (1.0-2.2); BILIRUBIN,TOTAL 0.4 mg/dL (0.2-1.0); CALCIUM 8.6 mg/dL (8.5-10.3); CREATININE 0.8 mg/dL (0.6-1.2); POTASSIUM 3.5 mmol/L (3.5-5.0); TOTAL PROTEIN 6.5 g/dL (6.7-8.2)
[2020-12-25] MEDS ORDERED: IOPAMIDOL-300 100 ML VIAL IVP ONE (19:08)
[2020-12-25 19:14] LABS: BILIRUBIN,URINE NEGATIVE (NEGATIVE); GLUCOSE, URINE (UA) NEGATIVE (NEGATIVE); KETONES,URINE (UA) NEGATIVE (NEGATIVE); LEUKOCYTE ESTERASE, URINE NEGATIVE (NEGATIVE); NITRITE,URINE NEGATIVE (NEGATIVE); OCCULT BLOOD,URINE SMALL (NEGATIVE); PROTEIN,URINE NEGATIVE (NEGATIVE); UROBILINOGEN,URINE 0.2 (NORMAL) E.U./dL (NORMAL)
[2020-12-25 19:24] LABS: BACTERIA,URINE None Seen /HPF (None Seen); CLARITY,URINE CLEAR (CLEAR); SQUAMOUS EPITHELIAL CELL,UR FEW Squamous (<= Few); WBC,URINE 0-3 /HPF (0-3)
[2020-12-25] MEDS ORDERED: HYDROmorphone 1 MG/ML CARPUJECT IVP STA ×2 (20:03→21:16)
--- NOTE | 2020-12-25 20:05 | CT Report ---
PROCEDURE: Abdomen/Pelvis W INDICATIONS: LLQ abdominal pain CONTRAST: IV CONTRAST: Isovue 300 ml: 100 PO CONTRAST: *NO PO CONTRAST TECHNIQUE: After the administration of intravenous contrast, 5 mm thick sections acquired from the diaphragms to the symphysis. 5 mm thick coronal and sagittal reformats were acquired. For radiation dose reducti on, the following was used: automated exposure control, adjustment of mA and/or kV according to angy ent size. COMPARISON: 11/12/2020 and 07/03/2020 FINDINGS: Image quality: Excellent. ABDOMEN: Lung bases: Lung bases are clear. Heart size is normal. Solid organs: Overlying the right hepatic dome there is a rim-enhancing fluid collection worrisome fo r abscess, measuring approximately 7.8 x 8.3 x 2.8 cm AP LR CC. There is mild mass effect manifesting as flattening of the adjacent right hepatic dome. Elevation of the right hemidiaphragm with adjacent small pleural effusion and atelectasis. The spleen is enlarged measuring up to 15 cm maximum cranioc audal dimension. Right double-J ureteral stent with mild right hydronephrosis. Left kidney and collec ting system unremarkable. Adrenal glands are normal. Pancreas unremarkable. Peritoneum and bowel: Suspected small bowel obstruction in the left upper quadrant with several loops of bowel measuring up to 3.5 cm, also demonstrating mild wall thickening in mucosal hyperenhancement . Transition point is thought to be on series 3 image 51 in the far left lateral aspect of the abdome n. Large volume of stool throughout the colon. Nodes and vessels: No retroperitoneal or mesenteric adenopathy by size criteria. Aorta and inferior vena cava are normal in size. Miscellaneous: No ventral hernias. PELVIS: Genitourinary: Bladder wall thickness is normal. Miscellaneous: No inguinal hernias or adenopathy. Bones: No suspicious bony lesions. No vertebral body compression fractures. IMPRESSION: Rim-enhancing fluid subdiaphragmatic fluid collection overlying the right hepatic dome, suspicious fo r abscess. Small bowel obstruction of the left abdomen. Mild hydronephrosis with double-J ureteral stent in appropriate position. Splenomegaly. Reviewed by: Stanton Espino MD on 12/25/2020 8:03 PM PDT Approved by: Stanton Espino MD on 12/25/2020 8:03 PM PDT Station ID: [id number]
[2020-12-25 22:10] VITALS: BP 130/100
[2020-12-25 22:17] LABS: B. PARAPERTUSSIS- RESP PCR PAN NOT DETECTED; B. PERTUSSIS- RESP PCR PANEL NOT DETECTED; C. PNEUMONIAE- RESP PCR PANEL NOT DETECTED; CORONAVIRUS 229E-RESP PCR NOT DETECTED; CORONAVIRUS HKU1-RESP PCR NOT DETECTED; CORONAVIRUS NL63-RESP PCR NOT DETECTED; CORONAVIRUS OC43-RESP PCR NOT DETECTED; HUMAN METAPNEUMOVIRUS NOT DETECTED; INFLUENZA A- RESP PCR PANEL NOT DETECTED; INFLUENZA B - RESP PCR PANEL NOT DETECTED; M. PNEUMONIAE- RESP PCR PANEL NOT DETECTED; PARAINFLUENZA VIRUS 1 NOT DETECTED; PARAINFLUENZA VIRUS 2 NOT DETECTED; PARAINFLUENZA VIRUS 3 NOT DETECTED; PARAINFLUENZA VIRUS 4 NOT DETECTED; RHINOVIRUS/ENTEROVIRUS NOT DETECTED; RSV- RESP PCR PANEL NOT DETECTED; SARS-CoV-2 -RESP PCR PANEL NOT DETECTED
--- NOTE | 2020-12-26 08:13 | XRAY Report ---
PROCEDURE: Chest 1 View X-Ray INDICATIONS: NGT placement TECHNIQUE: One view of the chest was acquired. COMPARISON: Chest plain film 05/24/2020 FINDINGS: Surgical changes and devices: Esophagogastric tube in normal position with tip in the gastric body.. Lungs and pleura: No pleural effusions or pneumothorax. Lungs are clear. Mediastinum: Mediastinal contours appear normal. Heart size is normal. Bones and chest wall: No suspicious bony lesions. Overlying soft tissues appear unremarkable. IMPRESSION: Esophagogastric tube positioning shows tip within the gastric body. The exact positioning of the side port is not seen. Reviewed by: Alejo Stewart MD on 12/26/2020 8:12 AM PDT Approved by: Alejo Stewart MD on 12/26/2020 8:12 AM PDT Station ID: [id number]
== END 2020-12-25 23:53 | disposition short-term general hospital (02) ==
LOC: ED 18:05
DX: K65.1 Peritoneal abscess (principal); K56.609 Unspecified intestinal obstruction, unspecified as to partial versus complete obstruction; N31.8 Other neuromuscular dysfunction of bladder; F17.200 Nicotine dependence, unspecified, uncomplicated; Z20.822 Contact with and (suspected) exposure to COVID-19
CPT/HCPCS: 36415; 71045; 74177; 80053; 81001; 83605; 83690; 85025; 87631; 96374; 96376; 99283; 99285; J1170; Q9967; 0202U; 81003; 87086

== ENCOUNTER 2020-12-28 20:56 | Outpatient (CLI) | payer MEDICARE, MEDICAID | END 2020-12-28 20:57 | disposition critical access hospital (66) | LOC: EMS 20:56 | DX: T82.838A Hemorrhage due to vascular prosthetic devices, implants and grafts, initial encounter (principal) | CPT/HCPCS: A0425; A0429 ==

== ENCOUNTER 2020-12-28 21:21 | Emergency (ER) | payer MEDICARE, MEDICAID ==
[2020-12-28 21:30] VITALS: BP 156/98
--- NOTE | 2020-12-28 21:33 | ED Physician Documentation ---
PD HPI SKIN - Stated complaint Stated Complaint: L ARM/PICC LINE SITE BLEEDING - Chief complaint Chief Complaint: Wound - History obtained from History obtained from: Patient, EMS - Additional information Additional information: Patient comes emergency department via EMS with chief complaint of bleeding from PICC line site in left arm. The patient was just discharged from [place] around 1500 today after being admitted for an "abscess and infection". Patient is not able to be more specific, as he does not really know exactly what his infection is. He states that while waiting for his discharge papers, he was packing up his things and clearing off the bed and noticed that he had some bleeding in his within his PICC dressing. He states that he had been on a "blood thinner" while in the hospital but his last dose was yesterday. Patient states that in the 6-1/2 hours since discharge, he has noticed that it seems to be oozing slightly, but his dressing has not become any more soaked. Patient states that before discharge, the nurses tried to get a hold of the PICC nurse to come and take a look at his line, but that the PICC nurse was busy, so they finally just discharged him. Patient denies easy bruising or bleeding anywhere else. No fevers. Otherwise, he has not had any worsening of symptoms. No other complaints at this time. Review of Systems Ten Systems: 10 systems reviewed and negative Constitutional: reports: Reviewed and negative Eyes: reports: Reviewed and negative Ears: reports: Reviewed and negative Nose: reports: Reviewed and negative Throat: reports: Reviewed and negative Cardiac: reports: Reviewed and negative Respiratory: reports: Reviewed and negative GI: reports: Reviewed and negative : reports: Reviewed and negative Skin: reports: Other (Bleeding from PICC line site) Musculoskeletal: reports: Reviewed and negative Neurologic: reports: Reviewed and negative Psychiatric: reports: Reviewed and negative Endocrine: reports: Reviewed and negative Immunocompromised: reports: Reviewed and negative PD PAST MEDICAL HISTORY - Past Medical History Cardiovascular: Murmur Respiratory: Asthma Neuro: None Endocrine/Autoimmune: None GI: Chronic constipation : Incontinence HEENT: None Psych: Depression Musculoskeletal: Chronic back pain Derm: Other - Past Surgical History Past Surgical History: Yes General: Gastric surgery Ortho: Spine surgery HEENT: Tonsil/Adenoidectomy - Present Medications Home Medications: Ambulatory Orders Medication Instructions Recorded Confirmed Pregabalin [Lyrica] 225 mg PO BID 10/04/20 12/25/20 - Allergies Allergies/Adverse Reactions: Allergies Allergy/AdvReac Type Severity Reaction Status Date / Time morphine Allergy Intermediate terrors Verified 12/28/20 21:30 - Social History Does the pt smoke?: Yes Smoking Status: Current some day smoker Does the pt drink ETOH?: Yes Does the pt have substance abuse?: No - Immunizations Immunizations are current?: Yes - POLST Patient has POLST: No PD ED PE NORMAL - Vitals Vital signs reviewed: Yes - General General: Alert and oriented X 3, No acute distress, Well developed/nourished - HEENT HEENT: Atraumatic, PERRL, EOMI, Moist mucous membranes - Neck Neck: Supple, no meningeal sign - Respiratory Respiratory: No respiratory distress - Derm Derm: Normal color, Warm and dry, Other (PICC line in place left distal upper arm. Red blood soaking the Biopatch and about half of the 2 x 2 gauze. Small amount of bloody residue surrounding the line beneath the Tegaderm. No leakage of blood out of Tegaderm. No evidence of ongoing bleeding) - Extremities Extremities: No deformity, No edema - Neuro Neuro: Alert and oriented X 3 - Psych Psych: Normal mood, Normal affect Results - Vitals Vitals: Vital Signs - 24 hr 12/28/20 21:28 Temperature 37.0 C Heart Rate 88 Respiratory 14 Rate Blood Pressure 156/98 H O2 Saturation 100 Oxygen O2 Source Room air PD MEDICAL DECISION MAKING - ED course Complexity details: considered differential, d/w patient ED course: I discussed with the patient that for a 6-1/2-hour time period, he actually is a fairly small amount of blood, and also, there is no evidence of ongoing bleeding. The dressing, including Biopatch, was changed sterilely in the emergency department. Site was cleaned, and new dressing was placed. Discussed with the patient that the heparin which she received in the hospital should be out of his system within 24 hours of last dose, and that the propensity to bleed should subside. I have also discussed with the patient that it is important not to do too much with the arm because of the risk of roughening of the lining causing more bleeding or worse yet, dislodging the line. We have discussed the need for follow-up, as well as the usual indications for return. Patient does have a home health nurse coming tomorrow to inspect the line. Departure - Departure Disposition: 01 Home, Self Care Clinical Impression: Bleeding from peripherally inserted central catheter (PICC) Qualifiers: Encounter type: initial encounter Qualified Code(s): T82.838A - Hemorrhage due to vascular prosthetic devices, implants and grafts, initial encounter Condition: Stable Instructions: ED PICC Line Care Comments: Your PICC line appears to be in good placement, and overall, the amount of bleeding that has occurred in the last 6-1/2 hours is fairly minimal. The "blood thinner" should be out of your system within about 24 hours of last dose, and your propensity for bleeding should diminish. However, it is important that you do not do heavy work or anything that causes friction or blunt force to the area where your PICC line is, in order to avoid further bleeding or worse yet, dislodging the line. Please continue your antibiotics as directed. Please follow-up with your doctor as scheduled to reevaluate the status of your infection.
--- OUTSIDE RECORDS SUMMARY | 2020-12-28 21:42 | EXTERNAL MEDICAL SUMMARY RPT | Continuity of Care Document ---
:1975 Demographics Phone Unavailable Preferred Language Unknown Marital Status Unknown Presybeterian Affiliation Unknown Race Unknown Ethnic Group Unknown Author Organization [place] [address] [place] [address] Phone Problems date description facility [id number] [facility] [place] [facility] [id number] [facility] [place] [facility]
== END 2020-12-28 21:59 | disposition home or self-care (01) ==
LOC: EDUNIT# → ED 21:21
DX: T82.838A Hemorrhage due to vascular prosthetic devices, implants and grafts, initial encounter (principal); Y83.9 Surgical procedure, unspecified as the cause of abnormal reaction of the patient, or of later complication, without mention of misadventure at the time of the procedure; F17.200 Nicotine dependence, unspecified, uncomplicated
CPT/HCPCS: 99283; 99284

== ENCOUNTER 2021-01-29 23:20 | Emergency (ER) | payer MEDICARE, MEDICAID ==
--- OUTSIDE RECORDS SUMMARY | 2021-01-29 23:23 | EXTERNAL MEDICAL SUMMARY RPT | Continuity of Care Document ---
:1975 Demographics Phone Unavailable Preferred Language Unknown Marital Status Unknown Moravian Affiliation Unknown Race Unknown Ethnic Group Unknown Author Organization [place] Address [address] [place] [address] Phone Allergies Encounters Medications Problems date description facility [id number] Gastric ulcer, unspecified as acute or [facility] chronic, without hemo [id number] Enterococcus as the cause of diseases [facility] classified elsewhere [id number] [facility] [employer] [id number] [facility] [employer] Results
--- OUTSIDE RECORDS SUMMARY | 2021-01-29 23:27 | EXTERNAL MEDICAL SUMMARY RPT | Continuity of Care Document ---
:1975 Demographics Phone Unavailable Preferred Language Unknown Marital Status Unknown Jain Affiliation Unknown Race Unknown Ethnic Group Unknown Author Organization [place] [address] [place] [address] Phone Allergies Encounters Medications Problems date description facility [id number] Gastric ulcer, unspecified as acute or [facility] chronic, without hemo [id number] Enterococcus as the cause of diseases [facility] classified elsewhere [id number] [facility] [employer] [id number] [facility] [employer] Results
--- NOTE | 2021-01-30 00:06 | ED Physician Documentation ---
PD HPI ABD PAIN - Stated complaint Stated Complaint: MALE - Chief complaint Chief Complaint: General - History obtained from History obtained from: Patient - History of Present Illness Timing - onset: Today Timing - duration: Hours Timing - details: Gradual onset, Still present, Waxing and waning Quality: Cramping, Sharp, Pain Location: RLQ Radiation: Right flank Improved by: Laying still Worsened by: Position, Palpation Associated symptoms: Constipation, Hematuria. No: Nausea, Vomiting, Diarrhea Similar symptoms before: Diagnosis (kidney stone) Recently seen: Clinic, Emergency Dept, Admitted, Surgery, Transferred - Additional information Additional information: 45-year-old male with a history of a schwannoma and a neurogenic bladder has had a rough 8 months. He has had a left testicular infection followed by renal lithiasis with obstruction and sepsis followed by perforation in the abdomen and an abscess formation. He is currently on intravenous antibiotic through PICC line for treatment of an intra-abdominal abscess. He has been evaluated here in the emergency department he has been transferred to both [facility] and [facility] and he has had surgery to his testicle and his abdomen. Today he is experiencing a sharp intermittent pain in the right lower quadrant radiating to his right flank that will sometimes bring him to his knees. When he discovered some blood in the pad of his underwear he became concerned and when he urinated he found there was blood in the urine as well. He is concerned there is evidence of a kidney stone. Review of Systems Constitutional: denies: Fever, Chills, Myalgias Eyes: denies: Decreased vision Ears: denies: Ear pain Nose: denies: Congestion Throat: denies: Sore throat Cardiac: denies: Chest pain / pressure, Palpitations Respiratory: denies: Dyspnea, Cough GI: reports: Abdominal Pain, Constipation. denies: Nausea, Vomiting, Diarrhea : reports: Hematuria. denies: Dysuria, Frequency PD PAST MEDICAL HISTORY - Past Medical History Cardiovascular: Murmur Respiratory: Asthma Neuro: None Endocrine/Autoimmune: None GI: Chronic constipation : Incontinence HEENT: None Psych: Depression Musculoskeletal: Chronic back pain Derm: Other - Past Surgical History Past Surgical History: Yes General: Gastric surgery Ortho: Spine surgery HEENT: Tonsil/Adenoidectomy - Present Medications Home Medications: Ambulatory Orders Medication Instructions Recorded Confirmed Pregabalin [Lyrica] 225 mg PO BID 10/04/20 12/25/20 HYDROcod/ACETAM 5/325 [Revillo 5/325] 1 - 2 tablet PO Q6H PRN #14 tablet 01/30/21 - Allergies Allergies/Adverse Reactions: Allergies Allergy/AdvReac Type Severity Reaction Status Date / Time morphine Allergy Intermediate terrors Verified 01/29/21 23:26 - Social History Does the pt smoke?: Yes Smoking Status: Current some day smoker Does the pt drink ETOH?: Yes Does the pt have substance abuse?: No - Immunizations Immunizations are current?: Yes - POLST Patient has POLST: No PD ED PE NORMAL - Vitals Vital signs reviewed: Yes (hypertensive) - General General: Alert and oriented X 3, No acute distress, Well developed/nourished - HEENT HEENT: Atraumatic, PERRL, EOMI - Neck Neck: Supple, no meningeal sign, No bony TTP - Cardiac Cardiac: RRR, No murmur - Respiratory Respiratory: No respiratory distress, Clear bilaterally - Abdomen Abdomen: Normal bowel sounds, Soft, Non distended, No organomegaly, Other (mild RLQ tenderness without garding or rebound. ) - Back Back: No CVA TTP, No spinal TTP - Derm Derm: Normal color, Warm and dry, No rash - Extremities Extremities: No deformity, No edema - Neuro Neuro: Alert and oriented X 3, mobile sales consultant 2-12 intact, No motor deficit, No sensory deficit, Normal speech Eye Opening: Spontaneous Motor: Obeys Commands Verbal: Oriented GCS Score: 15 - Psych Psych: Normal mood, Normal affect Results - Vitals Vitals: Vital Signs - 24 hr 01/29/21 01/30/21 23:22 00:17 Temperature 36.6 C Heart Rate 74 72 Respiratory 16 16 Rate Blood Pressure 140/102 H 155/106 H O2 Saturation 99 99 Oxygen O2 Source Room air - Labs Labs: Laboratory Tests 01/29/21 01/30/21 01/30/21 23:36 00:12 00:12 WBC 6.0 RBC 4.51 L Hgb 13.1 L Hct 39.8 L MCV 88.2 MCH 29.0 MCHC 32.9 RDW 13.8 Plt Count 266 MPV 11.7 H Neut # (Auto) 3.6 Lymph # (Auto) 1.5 Craven # (Auto) 0.5 Eos # (Auto) 0.3 Baso # (Auto) 0.0 Absolute Nucleated RBC 0.00 Nucleated RBC % 0.0 Sodium 143 Potassium 3.6 Chloride 104 Carbon Dioxide 31 Anion Gap 8.0 BUN 26 H Creatinine 1.0 Estimated GFR (MDRD) 82 L Glucose 96 Calcium 9.1 Total Bilirubin 0.5 AST 15 ALT 16 Alkaline Phosphatase 87 Total Protein 7.1 Albumin 3.9 Globulin 3.2 Albumin/Globulin Ratio 1.2 Lipase 39 Urine Color RED/BLOODY Urine Clarity BLOODY Urine pH 6.5 Ur Specific [place] 1.025 Urine Protein Urine Glucose (UA) NEGATIVE Urine Ketones TRACE Urine Occult Blood LARGE H Urine Nitrite POSITIVE H Urine Bilirubin NEGATIVE Urine Urobilinogen 1 (NORMAL) Ur Leukocyte Esterase TRACE H Urine RBC TNTC H Urine WBC 0-3 Ur Squamous Epith Cells RARE Squamous Urine Bacteria Few Ur Microscopic Review INDICATED Urine Culture Comments INDICATED Procedures - Bedside sono Bedside sono by EMP: With use of bedside ultrasound the right flank is imaged the kidney is sonographically nontender and there is evidence of mild hydronephrosis. PD MEDICAL DECISION MAKING - ED course Complexity details: reviewed old records, reviewed results, re-evaluated patient, considered differential, d/w patient ED course: CT ab/pel with: Impression: 1. Adequately positioned right double-pigtail ureteral stent with mild collecting system distention. No urolithiasis. Similar to the prior exam. 2. Intermediate soft tissue nodule involving the right posterior chest wall alongside the T9 vertebral body. This appears to be a chronic finding with scalloping of the adjacent rib, however no fracture or lytic change. 3. Multiloculated right subdiaphragmatic fluid collection could be an abscess. No significant change. 4. Additional findings as above. 45-year-old male with multiple abnormalities including a schwannoma in his back which he has dealt with previously and which is currently on hold as he is dealing with other issues. He does have an intra-abdominal abscess and he is on intravenous antibiotic for this. He has follow-up with infectious disease by telephone in 2 days time. Today he is presenting to the emergency department with hematuria. He has some intermittent pain associated with this and he has a stent in place. His stent is been in place for about 2 months and he will need follow-up with urology. I did not find evidence of infection in the urine today and the patient has a normal white blood cell count and is afebrile. I have observed the patient have episodic pain and he will have pain lasting minutes and it will resolve and following that he has no evidence of pain. He continues to have hematuria. Departure - Departure Disposition: 01 Home, Self Care Clinical Impression: Hematuria Qualifiers: Hematuria type: gross Qualified Code(s): R31.0 - Gross hematuria Condition: Stable Instructions: ED Hematuria Follow-Up: Danika García PA-C [Primary Care Provider] - Erica Rocha MD [Physician No Access] - Asya Garber MD [Physician No Access] - Nadiya Pineda MD [Provider Admit Priv/Credential] - Prescriptions: HYDROcod/ACETAM 5/325 [Revillo 5/325] 1 - 2 tablet PO Q6H PRN #14 tablet PRN Reason: Pain Comments: Today there is evidence of blood in the urine and this does not appear to be related to infection. There is a stent in the right ureter and this may be the cause of your hematuria. A follow-up with urology urgently is indicated. Call the urologist for an urgent visit for hematuria with a stent in place.
[2021-01-30] MEDS ORDERED: IOVERSOL 320 100 ML VIAL IVP ONE ×2 (00:07→01:13)
[2021-01-30 00:20] LABS: GLUCOSE, URINE (UA) NEGATIVE (NEGATIVE); KETONES,URINE (UA) TRACE mg/dL (NEGATIVE); LEUKOCYTE ESTERASE, URINE TRACE (NEGATIVE); NITRITE,URINE POSITIVE (NEGATIVE); OCCULT BLOOD,URINE LARGE (NEGATIVE); PH,URINE 6.5 PH (5.0-7.5); UROBILINOGEN,URINE 1 (NORMAL) E.U./dL (NORMAL)
[2021-01-30 00:21] LABS: BASOPHILS % (AUTO) 0.5 %; EOSINOPHILS # (AUTO) 0.3 10^3/uL (0.0-0.7); EOSINOPHILS % (AUTO) 5.2 %; HCT - HEMATOCRIT 39.8 % (42.0-52.0); HGB - HEMOGLOBIN 13.1 g/dL (14.0-18.0); LYMPHOCYTES # (AUTO) 1.5 10^3/uL (1.5-3.5); LYMPHOCYTES % (AUTO) 25.1 %; MEAN CORPUSCULAR HGB CONC 32.9 g/dL (32.0-36.0); MEAN CORPUSCULAR VOLUME 88.2 fL (80.0-94.0); MEAN PLATELET VOLUME 11.7 fL (7.4-11.4); MONOCYTES # (AUTO) 0.5 10^3/uL (0.0-1.0); MONOCYTES % (AUTO) 7.9 %; NEUTROPHILS # (AUTO) 3.6 10^3/uL (1.5-6.6); PLT - PLATELET COUNT 266 10^3/uL (130-450); RED BLOOD COUNT 4.51 10^6/uL (4.70-6.10); RED CELL DISTRIBUTION WIDTH 13.8 % (12.0-15.0)
[2021-01-30 00:26] LABS: BILIRUBIN,URINE NEGATIVE (NEGATIVE); CLARITY,URINE BLOODY (CLEAR); ICTOTEST,URINE NEGATIVE
[2021-01-30 00:30] LABS: WBC,URINE 0-3 /HPF (0-3)
[2021-01-30 00:31] LABS: BACTERIA,URINE Few /HPF (None Seen); RBC,URINE TNTC /HPF (0-5); SQUAMOUS EPITHELIAL CELL,UR RARE Squamous (<= Few)
[2021-01-30 00:37] LABS: ALBUMIN 3.9 g/dL (3.2-5.5); ALBUMIN/GLOBULIN RATIO 1.2 (1.0-2.2); BILIRUBIN,TOTAL 0.5 mg/dL (0.2-1.0); CALCIUM 9.1 mg/dL (8.5-10.3); POTASSIUM 3.6 mmol/L (3.5-5.0); TOTAL PROTEIN 7.1 g/dL (6.7-8.2)
[2021-01-30] MEDS ORDERED: HYDROcod/ACET 5/325 Prepack 4 PO STA (02:29)
[2021-01-30 02:47] VITALS: BP 140/123
--- NOTE | 2021-01-30 09:20 | CT Report ---
PROCEDURE: Abdomen/Pelvis W INDICATIONS: RLQ intermittent pain/hematuria CONTRAST: IV CONTRAST: Optiray 320 ml: 100 PO CONTRAST: *NO PO CONTRAST TECHNIQUE: After the administration of intravenous contrast, 5 mm thick sections acquired from the diaphragms to the symphysis. 5 mm thick coronal and sagittal reformats were acquired. For radiation dose reducti on, the following was used: automated exposure control, adjustment of mA and/or kV according to angy ent size. COMPARISON: CT abdomen pelvis 12/25/2020, 11/12/2020, 07/03/2020, 04/13/2019. MRI chest 04/29/2019, MRI t horacic spine 06/24/2019 FINDINGS: Image quality: Excellent. ABDOMEN: Lung bases: There is a pleural or chest wall nodule redemonstrated along the right lower lobe measur ing up to 2.2 x 1.5 cm on series 3 image 10 with associated mild bony scalloping of the adjacent eigh th rib posteriorly. The findings appear similar to the prior studies given differences in technique. There are also additional posterior chest wall soft tissue nodules within the right paravertebral sof t tissues posterior to T8 measuring up to 1.5 x 1.3 cm on series 3 image 12 and posterior to the T9 s pinous process measuring 1.9 x 1.4 cm on series 3 image 8. Within the right lateral chest wall, there is a nodule measuring 1.6 x 1.1 cm on series 3 image 21. A few scattered smaller additional nodules are also redemonstrated within the chest wall. These also appear similar to the prior studies where p reviously visualized. Heart size is normal. Solid organs: There is a right subdiaphragmatic peripherally enhancing collection along the right he patic dome measuring up to 7.0 x 5.9 x 3.8 cm with increased internal septations. This appears simila r to slightly decreased in size compared to the prior study. There is adjacent mild enhancement along the right hepatic dome likely representing reactive changes. No discrete intrahepatic mass or collec tion. The gallbladder is partially distended and demonstrates mild wall thickening and enhancement. B iliary system is non dilated. There is soft tissue fullness in the region of the pancreatic head whic h appears similar to the prior studies. No discrete mass identified. No peripancreatic fat stranding or fluid collections. No adrenal nodules. There is a right ureteral stent redemonstrated with the proximal coil in the right renal pelvis and t he distal coil in the bladder. There is residual mild right hydronephrosis, slightly decreased from t he prior study with mild urothelial thickening and perirenal fat stranding. No discrete urinary stone identified. No left hydronephrosis. Peritoneum and bowel: Small bowel loops demonstrate normal wall thickness and caliber. Appendix is no rmal in appearance. There is mild segmental wall thickening in the sigmoid colon. No free fluid or a ir. Nodes and vessels: No retroperitoneal or mesenteric adenopathy by size criteria. Aorta and inferior vena cava are normal in size. Miscellaneous: No ventral hernias. PELVIS: Genitourinary: Bladder wall thickness is normal. Miscellaneous: No inguinal hernias or adenopathy. Bones: No suspicious bony lesions. No vertebral body compression fractures. IMPRESSION: 1. Right subdiaphragmatic thick-walled collection appears similar to slightly decreased in size aleksandr red to the prior study, with increased internal septations. The findings are again consistent with an abscess. 2. Right ureteral stent redemonstrated with slight interval decrease in mild right hydronephrosis. Mi ld urothelial thickening and perirenal fat stranding may be reactive or reflect a urinary tract infec tion. No discrete urinary stone identified. 3. No evidence of appendicitis. 4. Mild nonspecific gallbladder wall thickening and enhancement, with evaluation limited by incomplet e distention. If there is clinical suspicion for cholecystitis, further evaluation may be obtained wi th ultrasound. 5. Multiple soft tissue nodules redemonstrated primarily within the chest wall. These appear similar in size compared to the prior studies and again raise the possibility of neurofibromatosis. Reviewed by: Hossein Almanzar MD on 01/30/2021 9:19 AM PDT Approved by: Hossein Almanzar MD on 01/30/2021 9:19 AM PDT Station ID: [id number]
== END 2021-01-30 02:47 | disposition home or self-care (01) ==
LOC: ED 23:20
DX: R31.0 Gross hematuria (principal); R10.31 Right lower quadrant pain; K59.00 Constipation, unspecified; Z96.0 Presence of urogenital implants; Z87.442 Personal history of urinary calculi; K65.1 Peritoneal abscess; D36.17 Benign neoplasm of peripheral nerves and autonomic nervous system of trunk, unspecified; N31.9 Neuromuscular dysfunction of bladder, unspecified; F17.200 Nicotine dependence, unspecified, uncomplicated
CPT/HCPCS: 36415; 74177; 80053; 81001; 83690; 85025; 87086; 99284; Q9967; 81003

== ENCOUNTER 2021-01-31 08:00 | Outpatient (CLI) | payer MEDICARE, MEDICAID | END 2021-01-31 23:59 | disposition home or self-care (01) | LOC: LAB.WCP 08:00 | PROVIDERS: ATTEND Physician Assistant Medical | DX: R31.9 Hematuria, unspecified (principal) | CPT/HCPCS: 87086 ==

== ENCOUNTER 2021-03-04 00:04 | Emergency (ER) | payer MEDICARE, MEDICAID ==
[2021-03-04 00:16] VITALS: BP 137/111
[2021-03-04] MEDS ORDERED: SULFAMETH/TRIMETH DS 800/160 MG TABLET PO STA (00:49)
--- NOTE | 2021-03-04 00:51 | ED Physician Documentation ---
PD HPI SKIN - Stated complaint Stated Complaint: WOUND ON BUTTOCKS - Chief complaint Chief Complaint: Wound - History obtained from History obtained from: Patient - History of Present Illness Timing - onset: Today Timing - duration: Hours Timing - details: Still present Location: Other (above the buttocks) Quality / character: Painful (mild) Associated symptoms: No: Fever, Myalgias, Joint pain, Headache, Facial swelling, Dyspnea, Abd pain, N/V/D, Urinary sx Contributing factors: Exposed to medication (has been on augmentin and fluconizole for extended period of time.) Similar symptoms before: Has not had sx before Recently seen: Admitted, Surgery - Additional information Additional information: 45-year-old male with a history of schwannoma and a neurogenic bladder has had a lot of complications in the past year including renal lithiasis with infection and intra-abdominal abscess. He is currently on oral Augmentin and fluconazole. He has been on these medications for extended period of time. He does see infectious disease. Today he is coming into the emergency department with a sore near his tailbone which he states is begin to give him some trouble and he had his look at it she was concerned about infection. He has not had an infection or problems in this area previously. Review of Systems Constitutional: denies: Fever Eyes: denies: Decreased vision Ears: denies: Ear pain Nose: denies: Congestion Throat: denies: Sore throat Cardiac: denies: Chest pain / pressure, Palpitations Respiratory: denies: Dyspnea, Cough GI: denies: Abdominal Pain, Nausea, Vomiting, Diarrhea : denies: Dysuria, Frequency Skin: reports: Rash (to buttocks), Lesions (to buttocks) Musculoskeletal: reports: Back pain. denies: Neck pain, Extremity pain Neurologic: reports: Difficulty speaking. denies: Generalized weakness, Focal weakness, Numbness PD PAST MEDICAL HISTORY - Past Medical History Past Medical History: Yes Cardiovascular: Murmur Respiratory: Asthma Neuro: None Endocrine/Autoimmune: None GI: Chronic constipation : Incontinence HEENT: None Psych: Depression Musculoskeletal: Chronic back pain Derm: Other - Past Surgical History Past Surgical History: Yes General: Gastric surgery Ortho: Spine surgery HEENT: Tonsil/Adenoidectomy - Present Medications Home Medications: Ambulatory Orders Medication Instructions Recorded Confirmed Pregabalin [Lyrica] 225 mg PO BID 10/04/20 12/25/20 HYDROcod/ACETAM 5/325 [[place] 5/325] 1 - 2 tablet PO Q6H PRN #14 tablet 01/30/21 Sulfamethox/Trimeth 800/160 1 each PO BID #14 tablet 03/04/21 [Bactrim Ds] - Allergies Allergies/Adverse Reactions: Allergies Allergy/AdvReac Type Severity Reaction Status Date / Time morphine Allergy Intermediate terrors Verified 03/04/21 00:16 - Social History Does the pt smoke?: Yes Smoking Status: Current every day smoker Does the pt drink ETOH?: Yes Does the pt have substance abuse?: No - Immunizations Immunizations are current?: Yes - POLST Patient has POLST: No PD ED PE NORMAL - Vitals Vital signs reviewed: Yes (hypertensive ) - General General: Alert and oriented X 3, No acute distress, Well developed/nourished - HEENT HEENT: Atraumatic, PERRL, EOMI - Neck Neck: Supple, no meningeal sign, No bony TTP - Cardiac Cardiac: RRR, No murmur - Respiratory Respiratory: No respiratory distress, Clear bilaterally - Abdomen Abdomen: Normal bowel sounds, Soft, Non tender, Non distended, No organomegaly, Other (well healed midline scar) - Back Back: No CVA TTP, No spinal TTP, Other (Over the sacral/coccyx junction there is erythema surrounding an area that appears to have denuded skin. I looks like a burn healing. It is not particulalry tender and there is no drainage. ) - Derm Derm: Normal color, Warm and dry, No rash - Extremities Extremities: No deformity, No edema - Neuro Neuro: Alert and oriented X 3, jail keeper 2-12 intact, No motor deficit, No sensory deficit, Normal speech Eye Opening: Spontaneous Motor: Obeys Commands Verbal: Oriented GCS Score: 15 - Psych Psych: Normal mood, Normal affect Results - Vitals Vitals: Vital Signs - 24 hr 03/04/21 00:13 Temperature 36.5 C Heart Rate 86 Respiratory 18 Rate Blood Pressure 137/111 H O2 Saturation 98 Oxygen O2 Source Room air PD MEDICAL DECISION MAKING - ED course Complexity details: reviewed results, re-evaluated patient, considered differential, d/w patient ED course: 45-year-old male with a complicated past medical history is currently on 2 medic ations long-term both Augmentin and fluconazole. He has now developed an area over his sacrum and coccyx that appears to have burned tissue that appears to be healing not particularly tender I taken a culture of the area my concern is for the possibility of a fixed drug eruption. Today we have given the patient a dose of Septra as the area does look mildly infected and I have asked the patient to follow-up with infectious disease about stopping his other medications. I have asked him to inquire specifically about fixed drug eruption. I have indicated that if this skin entity does not improve or resolve this should be highly considered. Departure - Departure Disposition: 01 Home, Self Care Clinical Impression: Skin infection Condition: Stable Instructions: ED Staph Infec Abx Tx Only Follow-Up: Danika García PA-C [Primary Care Provider] - Prescriptions: Sulfamethox/Trimeth 800/160 [Bactrim Ds] 1 each PO BID #14 tablet Comments: Yann, although this area looks like a skin infection there are features of it that are not typical. My concern is for the possibility of a fixed drug eruption and the follow-up with this should be through the infectious disease specialist. If you do not have resolution of this area of soreness, where the skin is broken down, a strong consideration for fixed drug eruption should be made and a follow-up with your infectious disease person is indicated. We have obtained a culture of this area and we will have some information on that and 2 to 3 days time.
== END 2021-03-04 01:41 | disposition home or self-care (01) ==
LOC: ED 00:04
DX: L08.9 Local infection of the skin and subcutaneous tissue, unspecified (principal); F17.200 Nicotine dependence, unspecified, uncomplicated; Z79.2 Long term (current) use of antibiotics
CPT/HCPCS: 87070; 87181; 87205; 99283; A9270

== ENCOUNTER 2021-03-08 18:48 | Emergency (ER) | payer MEDICARE, MEDICAID ==
--- NOTE | 2021-03-08 20:05 | ED Physician Documentation ---
PD HPI SKIN - Stated complaint Stated Complaint: SORE ON ANUS - Chief complaint Chief Complaint: Wound - History obtained from History obtained from: Patient - Additional information Additional information: 45yM with pmh depression, ambulatory independently but with increased time staying in bed recently presents with sacral decubitus ulcer and hemorrhoid pain progressive over past few days. patient was prescribed bactrim four days ago but did not fill it yet because he's on chronic augmentin. denies fever, nausea. last BM a couple days ago. Review of Systems Constitutional: denies: Fever, Chills : reports: Other (hemorrhoids) Skin: reports: Lesions, Other (hemorrhoids) PD PAST MEDICAL HISTORY - Past Medical History Past Medical History: Yes Cardiovascular: Murmur Respiratory: Asthma Neuro: None Endocrine/Autoimmune: None GI: Chronic constipation : Incontinence HEENT: None Psych: Depression Musculoskeletal: Chronic back pain Derm: Other - Past Surgical History Past Surgical History: Yes General: Gastric surgery Ortho: Spine surgery HEENT: Tonsil/Adenoidectomy - Present Medications Home Medications: Ambulatory Orders Medication Instructions Recorded Confirmed Pregabalin [Lyrica] 225 mg PO BID 10/04/20 03/08/21 - Allergies Allergies/Adverse Reactions: Allergies Allergy/AdvReac Type Severity Reaction Status Date / Time morphine Allergy Intermediate terrors Verified 03/08/21 18:57 - Social History Does the pt smoke?: Yes Smoking Status: Current every day smoker Does the pt drink ETOH?: Yes Does the pt have substance abuse?: No - Immunizations Immunizations are current?: Yes - POLST Patient has POLST: No PD ED PE NORMAL - Vitals Vital signs reviewed: Yes - General General: Alert and oriented X 3, No acute distress, Well developed/nourished - HEENT HEENT: Atraumatic, PERRL, EOMI - Rectal Rectal: Other (external nonthrombosed hemorrhoids. sacral decubitus ulcer stage 2) - Derm Derm: Normal color, Warm and dry - Extremities Extremities: No deformity - Neuro Neuro: Alert and oriented X 3 - Psych Psych: Normal mood, Normal affect Results - Vitals Vitals: Vital Signs - 24 hr 03/08/21 18:59 Temperature 36.7 C Heart Rate 74 Respiratory 16 Rate Blood Pressure 141/98 H O2 Saturation 100 Oxygen O2 Source Room air PD MEDICAL DECISION MAKING - ED course ED course: 45yM with pmh hemorrhoids and sacral ulcer p/w worsening bedsore over the past few days. stage 2 decubitus ulcer on exam without overt signs of infection. advised to continue barrier cream, ambulate daily. pain control given in the ED for tonight. return precautions given. patient will f/u with JEFFREY García. Departure - Departure Disposition: Home, Self Care Clinical Impression: Sacral decubitus ulcer, stage II, Hemorrhoids Condition: Good Instructions: ED Hemorrhoids, Pressure Ulcer Comments: You were seen in the ED for evaluation of your bedsore and hemorrhoids. Please follow up with JEFFREY García this week. In the meantime, keep the area clean and keep pressure off of it. Apply nonstick dressing with zinc oxide barrier cream at least three times daily. Return to the ED if you have any new or worsening symptoms or other concerns.
[2021-03-08] MEDS: KETOROLAC 15 MG/ML VIAL IM STA (20:07)
[2021-03-08] MEDS: oxyCODONE 5 MG TABLET PO STA (20:07)
[2021-03-08 20:24] VITALS: BP 148/104
== END 2021-03-08 20:24 | disposition home or self-care (01) ==
LOC: ED 18:48
DX: L89.152 Pressure ulcer of sacral region, stage 2 (principal); K64.9 Unspecified hemorrhoids; F17.200 Nicotine dependence, unspecified, uncomplicated
CPT/HCPCS: 96372; 99283; A9270

== ENCOUNTER 2021-05-14 14:58 | Emergency (ER) | payer MEDICARE, MEDICAID ==
[2021-05-14] MEDS ORDERED: CHERRY SYRUP 10 ML UDC PO ONE (15:11)
[2021-05-14] MEDS ORDERED: KETOROLAC 30 MG/ML VIAL IM STA (15:11)
[2021-05-14] MEDS ORDERED: DEXAMETHASONE 10 MG/ML VIAL PO STA (15:11)
--- NOTE | 2021-05-14 15:14 | ED Physician Documentation ---
PD HPI LOWER EXT INJURY - Stated complaint Stated Complaint: RIGHT KNEE INJURY - Chief complaint Chief Complaint: Ext Problem - History obtained from History obtained from: Patient - History of Present Illness PD HPI LOW EXT INJURY LOCATION: Right, Knee Type of injury: Fall, Blunt / blow Where injury occurred: Home Timing - onset: How many days ago (4) Timing - duration: Days (4) Timing - details: Abrupt onset, Still present Improved by: Rest, Immobilization Worsened by: Moving, Palpating Associated symptoms: No: Weakness, Numbness, Tingling, Swelling Contributing factors: No: Anticoagulated Similar symptoms before: Has not had sx before Recently seen: Not recently seen - Additional information Additional information: 46 y/o male with a history of schwannoma has had a fall in his home 4 days ago. He is not certain how he fell but he has pain to the right knee over the medial joint line and pain with weight bearing. Review of Systems Constitutional: denies: Fever Eyes: denies: Decreased vision Ears: denies: Ear pain Nose: denies: Congestion Throat: denies: Sore throat Respiratory: denies: Cough GI: denies: Vomiting : denies: Dysuria, Frequency Skin: denies: Rash Musculoskeletal: reports: Joint pain, Pain with weight bearing. denies: Neck pain, Back pain, Joint swelling Neurologic: denies: Generalized weakness, Focal weakness, Numbness PD PAST MEDICAL HISTORY - Past Medical History Cardiovascular: Murmur Respiratory: Asthma Neuro: None Endocrine/Autoimmune: None GI: Chronic constipation : Incontinence HEENT: None Psych: Depression Musculoskeletal: Chronic back pain Derm: Other - Past Surgical History Past Surgical History: Yes General: Gastric surgery Ortho: Spine surgery HEENT: Tonsil/Adenoidectomy - Present Medications Home Medications: Ambulatory Orders Medication Instructions Recorded Confirmed Pregabalin [Lyrica] 225 mg PO BID 10/04/20 05/14/21 HYDROcod/ACETAM 5/325 [[place] 5/325] 1 - 2 tablet PO Q6H PRN #14 tablet 05/14/21 - Allergies Allergies/Adverse Reactions: Allergies Allergy/AdvReac Type Severity Reaction Status Date / Time morphine Allergy Intermediate terrors Verified 05/14/21 15:01 - Social History Does the pt smoke?: Yes Smoking Status: Current every day smoker Does the pt drink ETOH?: Yes Does the pt have substance abuse?: No - Immunizations Immunizations are current?: Yes - POLST Patient has POLST: No PD ED PE NORMAL - Vitals Vital signs reviewed: Yes (hypertensive ) - General General: Alert and oriented X 3, No acute distress, Well developed/nourished - HEENT HEENT: Atraumatic, PERRL, EOMI - Respiratory Respiratory: No respiratory distress - Derm Derm: Normal color, Warm and dry, No rash - Extremities Extremities: No deformity, No edema, Other (ligaments stable to testing no effusion noted medial joint line tenderness, distal n/v intact. ) - Neuro Neuro: Alert and oriented X 3, e commerce architect 2-12 intact, No motor deficit, No sensory deficit, Normal speech Eye Opening: Spontaneous Motor: Obeys Commands Verbal: Oriented GCS Score: 15 - Psych Psych: Normal mood, Normal affect Results - Vitals Vitals: Vital Signs - 24 hr 05/14/21 15:01 Temperature 36.5 C Heart Rate 88 Respiratory 16 Rate Blood Pressure 140/90 H O2 Saturation 99 Oxygen O2 Source Room air - Rads (name of study) knee Radiology: Prelim report reviewed (Impression: Negative plain films.), EMP read indepedently, See rad report PD MEDICAL DECISION MAKING - ED course Complexity details: considered differential, d/w patient ED course: 46-year-old male with a contusion to his right knee presents to the emerge department with right knee pain his examination is unremarkable he does have stable ligaments and no evidence of fracture on his plain films no evidence of joint effusion on physical examination. Departure - Departure Disposition: 01 Home, Self Care Clinical Impression: Contusion of right knee Qualifiers: Encounter type: initial encounter Qualified Code(s): S80.01XA - Contusion of right knee, initial encounter Condition: Stable Instructions: ED Contusion Lower Ext Follow-Up: Danika García PA-C [Primary Care Provider] - Prescriptions: HYDROcod/ACETAM 5/325 [[place] 5/325] 1 - 2 tablet PO Q6H PRN #14 tablet PRN Reason: Pain
--- NOTE | 2021-05-14 15:43 | XRAY Report ---
PROCEDURE: Knee 4 View RT INDICATIONS: Trauma TECHNIQUE: 4 views of the right knee(s) were acquired. COMPARISON: None. FINDINGS: Bones: No fractures or dislocations. No suspicious bony lesions. Soft tissues: No joint effusion. No suspicious soft tissue calcifications. IMPRESSION: Negative plain films. If there is strong clinical concern for internal derangement of the knee, please consider a dedicated , scheduled knee MRI for further evaluation (assuming that there is no contraindication). Reviewed by: Sravan Bowen MD on 05/14/2021 2:41 PM VIANNEY Approved by: Sravan Bowen MD on 05/14/2021 2:41 PM VIANNEY Station ID: [id number]
[2021-05-14 16:14] VITALS: BP 144/83
== END 2021-05-14 16:14 | disposition home or self-care (01) ==
LOC: ED 14:58
DX: S80.01XA Contusion of right knee, initial encounter (principal); W19.XXXA Unspecified fall, initial encounter; Y92.009 Unspecified place in unspecified non-institutional (private) residence as the place of occurrence of the external cause
CPT/HCPCS: 73564; 96372; 99283; A9270

== ENCOUNTER 2021-05-21 16:33 | Emergency (ER) | payer MEDICARE, MEDICAID ==
[2021-05-21 16:49] VITALS: BP 151/99
[2021-05-21] MEDS ORDERED: HYDROmorphone 1 MG/ML CARPUJECT IM STA (17:37)
[2021-05-21] MEDS ORDERED: KETOROLAC 30 MG/ML VIAL IVP STA (17:37)
[2021-05-21] MEDS ORDERED: predniSONE 20 MG TABLET PO STA (17:37)
--- NOTE | 2021-05-21 17:38 | ED Physician Documentation ---
PD HPI LOWER EXT INJURY - Stated complaint Stated Complaint: RIGHT KNEE & HIP PX - Chief complaint Chief Complaint: Ext Problem - History obtained from History obtained from: Patient - Additional information Additional information: Patient comes emergency department chief complaint of low back pain with sciatica symptoms. He denies injury. 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 Patient denies any loss of bowel or bladder function. No fevers or chills. No weakness, numbness, or tingling. He is able to stand and walk, but states pain is worse when he is on his feet. No other complaints at this time. Patient is already plugged in with primary care and a spine surgeon. He has had several surgeries on his back for the benign tumors, And has had multiple MRIs over the last 20 years. Review of Systems Ten Systems: 10 systems reviewed and negative Constitutional: reports: Reviewed and negative Eyes: reports: Reviewed and negative Ears: reports: Reviewed and negative Nose: reports: Reviewed and negative Throat: reports: Reviewed and negative Cardiac: reports: Reviewed and negative Respiratory: reports: Reviewed and negative GI: reports: Reviewed and negative : reports: Reviewed and negative Skin: reports: Reviewed and negative Musculoskeletal: reports: Back pain Neurologic: reports: Reviewed and negative Psychiatric: reports: Reviewed and negative Endocrine: reports: Reviewed and negative Immunocompromised: reports: Reviewed and negative PD PAST MEDICAL HISTORY - Past Medical History Cardiovascular: Murmur Respiratory: Asthma Neuro: None Endocrine/Autoimmune: None GI: Chronic constipation : Incontinence HEENT: None Psych: Depression Musculoskeletal: Chronic back pain Derm: Other - Past Surgical History Past Surgical History: Yes General: Gastric surgery Ortho: Spine surgery HEENT: Tonsil/Adenoidectomy - Present Medications Home Medications: Ambulatory Orders Medication Instructions Recorded Confirmed Pregabalin [Lyrica] 225 mg PO BID 10/04/20 05/14/21 HYDROcod/ACETAM 5/325 [[place] 5/325] 1 - 2 tablet PO Q6H PRN #14 tablet 05/14/21 HYDROcod/ACETAM 5/325 [[place] 5/325] 1 - 2 tablet PO Q6H PRN #14 tablet 05/21/21 predniSONE [Deltasone] 60 mg PO DAILY 5 Days #15 tablet 05/21/21 - Allergies Allergies/Adverse Reactions: Allergies Allergy/AdvReac Type Severity Reaction Status Date / Time morphine Allergy Intermediate terrors Verified 05/21/21 16:49 - Social History Does the pt smoke?: Yes Smoking Status: Current every day smoker Does the pt drink ETOH?: Yes Does the pt have substance abuse?: No - Immunizations Immunizations are current?: Yes - POLST Patient has POLST: No PD ED PE NORMAL - Vitals Vital signs reviewed: Yes - General General: Alert and oriented X 3, No acute distress, Well developed/nourished - HEENT HEENT: Atraumatic, PERRL, EOMI, Moist mucous membranes - Neck Neck: Supple, no meningeal sign - Cardiac Cardiac: RRR, No murmur, Strong equal pulses - Respiratory Respiratory: No respiratory distress, Clear bilaterally - Abdomen Abdomen: Soft, Non tender, Non distended - Back Back: No CVA TTP, No spinal TTP, Other (Lumbar paraspinal muscular tenderness right side with mild right sciatic tenderness.) - Derm Derm: Normal color, Warm and dry, No rash - Extremities Extremities: No deformity - Neuro Neuro: Alert and oriented X 3 - Psych Psych: Normal mood, Normal affect Results - Vitals Vitals: Vital Signs - 24 hr 05/21/21 16:43 Temperature 36.9 C Heart Rate 108 H Respiratory 17 Rate Blood Pressure 151/99 H O2 Saturation 100 Oxygen O2 Source Room air PD MEDICAL DECISION MAKING - ED course Complexity details: considered differential, d/w patient ED course: The patient had already had extensive, appropriate imaging and specialty follow- up for this problem, so I did not feel any testing would be beneficial in the emergency department. I treated the patient symptomatically, and I have advised him to follow-up with his primary care physician and forest resource specialist. He does not have any acute neurologic compromise which would raise concern for a spinal cord issue. We have discussed the usual indications for return. Departure - Departure Disposition: 01 Home, Self Care Clinical Impression: Back pain Qualifiers: Back pain location: low back pain Chronicity: acute Back pain laterality: right Sciatica presence: with sciatica Sciatica laterality: sciatica of right side Qualified Code(s): M54.41 - Lumbago with sciatica, right side Condition: Stable Instructions: ED Back Care Tips, ED Sciatica Prescriptions: predniSONE [Deltasone] 60 mg PO DAILY 5 Days #15 tablet HYDROcod/ACETAM 5/325 [[place] 5/325] 1 - 2 tablet PO Q6H PRN #14 tablet PRN Reason: Pain Comments: Please pick your pain medication prescription up at [facility] in [place]. The prescription has been electronically transmitted there. The prescription for the steroid has been given via paper prescription, and may be filled at any pharmacy. Discharge Date/Time: 05/21/21 18:34
== END 2021-05-21 18:34 | disposition home or self-care (01) ==
LOC: ED 16:33
DX: M54.41 Lumbago with sciatica, right side (principal); F17.200 Nicotine dependence, unspecified, uncomplicated
CPT/HCPCS: 96372; 96374; 99283; J1170; J7512

== ENCOUNTER 2021-05-26 19:11 | Emergency (ER) | payer MEDICARE, MEDICAID ==
--- NOTE | 2021-05-26 19:31 | ED Physician Documentation ---
History of Present Illness - Stated complaint Stated Complaint: RT LEG PX - Chief complaint Chief Complaint: Ext Problem - History obtained from History obtained from: Patient - History of Present Illness Timing: How many weeks ago ("a few weeks" (per patient)) Pain level now: 7 Improved by: rest Worsened by: weight-bearing, movement - Additonal information Additional information: c/o "a few weeks" (per patient) of right knee pain that radiates to right hip. Denies injury. Exacerbated with movement, weight-bearing. he says he has been evaluated 2 or 3 times for this already (in ED) and has had xrays of right knee (05/14/21) which were unremarkable (I reviewed these films myself tonight along with radiologist's interpretation). He says the soonest appointment he could schedule with PMD is not until next month. He is out of the vicodin prescribed on previous visit (5 days ago) and finished a QD prednisone course earlier today. Review of Systems Constitutional: denies: Fever Cardiac: denies: Chest pain / pressure Respiratory: denies: Dyspnea Skin: denies: Rash Musculoskeletal: reports: Extremity pain, Joint pain, Pain with weight bearing. denies: Back pain, Extremity swelling, Joint swelling Neurologic: denies: Generalized weakness, Focal weakness, Numbness PD PAST MEDICAL HISTORY - Past Medical History Past Medical History: Yes Cardiovascular: Murmur Respiratory: Asthma Neuro: None Endocrine/Autoimmune: None GI: Chronic constipation : Incontinence HEENT: None Psych: Depression Musculoskeletal: Chronic back pain Derm: Other - Past Surgical History Past Surgical History: Yes General: Gastric surgery Ortho: Spine surgery HEENT: Tonsil/Adenoidectomy - Present Medications Home Medications: Ambulatory Orders Medication Instructions Recorded Confirmed Pregabalin [Lyrica] 225 mg PO BID 10/04/20 05/26/21 HYDROcod/ACETAM 5/325 [[place] 5/325] 1 - 2 tablet PO Q6H PRN #14 tablet 05/14/21 05/26/21 Cyclobenzaprine [Flexeril] 10 mg PO TID PRN #20 tablet 05/26/21 traMADol [Ultram] 50 mg PO Q4-6H PRN #14 tablet 05/26/21 - Allergies Allergies/Adverse Reactions: Allergies Allergy/AdvReac Type Severity Reaction Status Date / Time morphine Allergy Intermediate terrors Verified 05/26/21 19:23 - Social History Does the pt smoke?: Yes Smoking Status: Current every day smoker Does the pt drink ETOH?: Yes Does the pt have substance abuse?: No - Immunizations Immunizations are current?: Yes - POLST Patient has POLST: No PD ED PE NORMAL - Vitals Vital signs reviewed: Yes - General General: Alert and oriented X 3, No acute distress, Well developed/nourished - Derm Derm: Normal color, Warm and dry, No rash - Extremities Extremities: No deformity, No tenderness to palpate, No edema, No calf tenderness / cord PD ED PE EXPANDED - Extremities Extremities: Other (right knee has FROM but pain is exacerbated with full extension, and further with valgus ([id number]) stress. The knee is not swollen, red, hot to touch. There is FROM right hip. no RLE edema) Results - Vitals Vitals: Vital Signs - 24 hr 05/26/21 05/26/21 19:15 19:55 Temperature 36.6 C 2.7 C L Heart Rate 110 H 97 Respiratory 16 16 Rate Blood Pressure 150/115 H 147/98 H O2 Saturation 99 99 Oxygen O2 Source Room air PD MEDICAL DECISION MAKING - ED course Complexity details: reviewed old records, considered differential, d/w patient ED course: Presents with ongoing (few weeks) of atraumatic right knee pain that radiates to right hip, atraumatic. Recent normal xrays right knee. Exam, combined with HPI/ROS, do not suggest emergent cause (such as infection, injury, DVT). Will rx flexeril and tramadol for pain relief and hopefully he can be seen by PMD soon for consideration of outpatient testing. There is/are no emergent test(s) indicated at this time. I am prescribing a short course of short-acting opioid pain medication for this patient. 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 I have discussed that the opioids are for short term therapy only, and will not be refilled from the ED. Departure - Departure Disposition: 01 Home, Self Care Clinical Impression: Pain in extremity Qualifiers: Extremity pain location: lower extremity Laterality: right Qualified Code(s): M79.604 - Pain in right leg Condition: Good Instructions: ED Knee Pain [facility], ED Acute Pain [facility] Follow-Up: Danika García PA-C [Primary Care Provider] - Prescriptions: Cyclobenzaprine [Flexeril] 10 mg PO TID PRN #20 tablet PRN Reason: Spasms traMADol [Ultram] 50 mg PO Q4-6H PRN #14 tablet PRN Reason: Pain Comments: Contact your primary care provider to see if you can get an earlier appointment. Prescriptions for tramadol (pain medication) and cyclobenzaprine (muscle relaxer) have been electronically submitted to [facility] in [place] I am prescribing a short course of narcotic pain medication for you. These are potentially dangerous and addictive medications that should be used carefully. These medications may constipate you. Take an [id number] stool softener (docusate) twice daily with plenty of water while taking these medications. If you go 24 hours without a bowel movement, take owky-[id number] miralax, per package instructions. Do not drink or drive while taking these medications. If you received narcotic or sedating medications while in the emergency department, do not drive for 24 hours. Store this medication in a safe, secure place and out of reach of children. It is a violation of federal law to give or sell this medication to another person or to use in a manner other than prescribed. The ED will not refill narcotic prescriptions, including prescriptions lost or stolen. To dispose of unwanted medications: 1. [facility] at [address] [facility] in [place] has a medication drop box. They accept prescription medications (in pill form) Saturday through Saturday 9:00 a.m. to 5:00 p.m. 2. [facility] [employer] accepts prescription medications (in pill form only) for disposal year round. Call for more information. 3. Contact the [facility] for the next [facility] sponsored prescription drug collection event. , [phone], or [phone]; Discharge Date/Time: 05/26/21 20:00
[2021-05-26] MEDS ORDERED: traMADol 50 MG TABLET PO STA (19:48)
[2021-05-26] MEDS ORDERED: CYCLOBENZAPRINE 10 MG TABLET PO STA (19:48)
[2021-05-26 20:02] VITALS: BP 147/98
== END 2021-05-26 20:00 | disposition home or self-care (01) ==
LOC: ED 19:11
DX: M25.561 Pain in right knee (principal); M25.551 Pain in right hip; M79.604 Pain in right leg; F17.200 Nicotine dependence, unspecified, uncomplicated
CPT/HCPCS: 99282; 99283; A9270

== ENCOUNTER 2021-06-05 16:21 | Emergency (ER) | payer MEDICARE, MEDICAID ==
[2021-06-05] MEDS ORDERED: ONDANSETRON ODT 4 MG TABLET TL STA (17:04)
[2021-06-05] MEDS ORDERED: DEXAMETHASONE 10 MG/ML VIAL PO STA (17:04)
[2021-06-05] MEDS ORDERED: CHERRY SYRUP 10 ML UDC PO ONE (17:04)
[2021-06-05] MEDS ORDERED: HYDROmorphone 1 MG/ML CARPUJECT IM STA (17:04)
--- NOTE | 2021-06-05 17:07 | ED Physician Documentation ---
PD HPI BACK PAIN - Stated complaint Stated Complaint: BACK/LEG PX - Chief complaint Chief Complaint: Back Pain - History obtained from History obtained from: Patient - History of Present Illness Timing - onset: How many weeks ago (2) Timing - duration: Weeks (2) Timing - details: Gradual onset, Still present, Waxing and waning Location: Upper, Mid Quality: Pain, Spasm, Sharp, Similar to prior episodes Associated symptoms: No: Fever, Weakness, Numbness, Incontinent of urine, Unable to urinate, Hematuria, Incontinent of stool Improves with: Rest Worsened by: Movement Similar symptoms before: Diagnosis (schwannoma) Recently seen: Emergency Dept - Additional information Additional information: 46-year-old male who has a history of a prior schwannoma that was surgically removed 10 years ago has had a recurrence of a schwannoma about 1 year ago. He has not been in to see the neurosurgeon in follow-up he is having worsening symptoms and he is having some difficulty with pain control. He has been into the emergency department for pain control a number of times as he is not getting pain control through his primary. He has had a difficult time with referral and getting time into see his primary. Review of Systems Constitutional: denies: Fever Eyes: denies: Decreased vision Ears: denies: Ear pain Nose: denies: Congestion Throat: denies: Sore throat Cardiac: denies: Chest pain / pressure, Palpitations Respiratory: denies: Dyspnea, Cough GI: denies: Abdominal Pain, Nausea, Vomiting, Constipation, Diarrhea : denies: Dysuria, Frequency Skin: denies: Rash Musculoskeletal: reports: Back pain, Extremity pain. denies: Neck pain Neurologic: denies: Generalized weakness, Focal weakness, Numbness PD PAST MEDICAL HISTORY - Past Medical History Cardiovascular: Murmur Respiratory: Asthma Neuro: None Endocrine/Autoimmune: None GI: Chronic constipation : Incontinence HEENT: None Psych: Depression Musculoskeletal: Chronic back pain Derm: Other - Past Surgical History Past Surgical History: Yes General: Gastric surgery Ortho: Spine surgery HEENT: Tonsil/Adenoidectomy - Present Medications Home Medications: Ambulatory Orders Medication Instructions Recorded Confirmed Pregabalin [Lyrica] 225 mg PO BID 10/04/20 05/26/21 HYDROcod/ACETAM 5/325 [[place] 5/325] 1 - 2 tablet PO Q6H PRN #14 tablet 05/14/21 05/26/21 Cyclobenzaprine [Flexeril] 10 mg PO TID PRN #20 tablet 05/26/21 traMADol [Ultram] 50 mg PO Q4-6H PRN #14 tablet 05/26/21 HYDROcod/ACETAM 5/325 [[place] 5/325] 1 - 2 tablet PO Q6H PRN #14 tablet 06/05/21 - Allergies Allergies/Adverse Reactions: Allergies Allergy/AdvReac Type Severity Reaction Status Date / Time morphine Allergy Intermediate terrors Verified 06/05/21 16:28 - Social History Does the pt smoke?: Yes Smoking Status: Current every day smoker Does the pt drink ETOH?: Yes Does the pt have substance abuse?: No - Immunizations Immunizations are current?: Yes - POLST Patient has POLST: No PD ED PE NORMAL - Vitals Vital signs reviewed: Yes (Hypertensive) - General General: Alert and oriented X 3, Well developed/nourished, Other (Thin male who is losing weight appears depressed with a flattened affect and some acquisitions assistant tone consistent with chronic pain.) - HEENT HEENT: Atraumatic, PERRL, EOMI - Cardiac Cardiac: RRR, No murmur - Respiratory Respiratory: No respiratory distress, Clear bilaterally - Abdomen Abdomen: Soft, Non tender - Back Back: No CVA TTP, Other (There is a well-healed surgical scar to the upper thoracic spine. There is a palpable bony mass. 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 He has failed to follow-up with this. He is in pain crisis now and he has come back to the emergency department with increasing frequency for any kind of pain control. He has not asked his primary about pain management. He does not have a referral to pain management. He does not have a referral to the neurosurgeon. He does not have an appointment to see his primary care doctor for another 3 weeks. Here in the emergency department I have encouraged the patient to get a referral for pain management and to get a referral to the neurosurgeon for a repeat visit. He likely needs a second surgery. He definitely needs regular pain management. The patient indicates to me that he has not had improvement in his pain with use of Toradol he does not think there is been any improvement with use of dexamethasone either. He does have some tolerability of his pain with use of hydrocodone. Departure - Departure Disposition: 01 Home, Self Care Clinical Impression: Back pain Qualifiers: Back pain location: thoracic back pain Chronicity: chronic Back pain laterality: bilateral Qualified Code(s): M54.6 - Pain in thoracic spine; G89.29 - Other chronic pain Condition: Stable Instructions: ED Chronic Pain Management, ED Neck Back Pain General Follow-Up: Danika García PA-C [Primary Care Provider] - Prescriptions: HYDROcod/ACETAM 5/325 [[place] 5/325] 1 - 2 tablet PO Q6H PRN #14 tablet PRN Reason: Pain Comments: Yann, today you have exceeded our policy for the number of prescriptions for pain medication through the emergency department for a specified problem. It appears you will need pain management for chronic pain and you will need a referral to a pain specialist. Call your primary today to ask about a referral for pain management. In addition you need a referral to see the neurosurgeon. My recommendation is to get the referral done through your primary and this can be started with a telephone call.
[2021-06-05 17:26] VITALS: BP 168/98
== END 2021-06-05 17:25 | disposition home or self-care (01) ==
LOC: ED 16:21
DX: D36.10 Benign neoplasm of peripheral nerves and autonomic nervous system, unspecified (principal); F17.200 Nicotine dependence, unspecified, uncomplicated
CPT/HCPCS: 96372; 99283; 99284; A9270; J1170; Q0162

== ENCOUNTER 2021-06-07 15:08 | Outpatient (CLI) | payer MEDICARE, MEDICAID | END 2021-06-07 15:09 | disposition short-term general hospital (02) | LOC: EMS 15:08 | DX: M54.6 Pain in thoracic spine (principal); M54.50 Low back pain, unspecified; M79.604 Pain in right leg; G89.29 Other chronic pain | CPT/HCPCS: A0425; A0427 ==

== ENCOUNTER 2021-06-28 16:25 | Outpatient (CLI) | payer MEDICAID | END 2021-06-28 16:26 | disposition short-term general hospital (02) | LOC: EMS 16:25 | DX: M54.9 Dorsalgia, unspecified (principal) | CPT/HCPCS: A0425; A0429; A0999 ==

== ENCOUNTER 2021-07-03 00:30 | Emergency (ER) | payer MEDICARE, MEDICAID ==
[2021-07-03 00:43] VITALS: BP 164/116
--- NOTE | 2021-07-03 02:00 | ED Physician Documentation ---
PD HPI UPPER EXT INJURY - Stated complaint Stated Complaint: L HAND INJ - Chief complaint Chief Complaint: Laceration - History obtained from History obtained from: Patient - History of Present Illness Location: Left, Hand Where injury occurred: Home Timing - onset: Enter time (00:30) Timing - details: Abrupt onset Pain level now: 7 Associated symptoms: No: Weakness, Numbness, Tingling, Swelling, Discolored Recently seen: Emergency Dept (CATHRYN form reflects visit to ED 5 days ago (06/28/21), as well as five ED visits last month (both [facility] and emergency departments)) - Additonal information Additional information: patient says that at approximately 12:30 this morning, he was cleaning a knife at home when it slipped and he sustained laceration to his left palm. He is UTD on tetanus. Patient is right hand dominant Review of Systems Skin: reports: Laceration (s) Musculoskeletal: reports: Extremity pain Neurologic: denies: Focal weakness, Numbness PD PAST MEDICAL HISTORY - Past Medical History Past Medical History: Yes Cardiovascular: Murmur Respiratory: Asthma Neuro: None Endocrine/Autoimmune: None GI: Chronic constipation : Incontinence HEENT: None Psych: Depression Musculoskeletal: Chronic back pain Derm: Other - Past Surgical History Past Surgical History: Yes General: Gastric surgery Ortho: Spine surgery HEENT: Tonsil/Adenoidectomy - Present Medications Home Medications: Ambulatory Orders Medication Instructions Recorded Confirmed Pregabalin [Lyrica] 225 mg PO BID 10/04/20 05/26/21 HYDROcod/ACETAM 5/325 [[place] 5/325] 1 - 2 tablet PO Q6H PRN #14 tablet 05/14/21 05/26/21 Cyclobenzaprine [Flexeril] 10 mg PO TID PRN #20 tablet 05/26/21 traMADol [Ultram] 50 mg PO Q4-6H PRN #14 tablet 05/26/21 HYDROcod/ACETAM 5/325 [[place] 5/325] 1 - 2 tablet PO Q6H PRN #14 tablet 06/05/21 - Allergies Allergies/Adverse Reactions: Allergies Allergy/AdvReac Type Severity Reaction Status Date / Time morphine Allergy Intermediate terrors Verified 07/03/21 00:40 - Social History Does the pt smoke?: Yes Smoking Status: Current every day smoker Does the pt drink ETOH?: Yes Does the pt have substance abuse?: No - Immunizations Immunizations are current?: Yes - POLST Patient has POLST: No PD ED PE NORMAL - Vitals Vital signs reviewed: Yes - General General: Alert and oriented X 3, No acute distress, Well developed/nourished - Derm Derm: Normal color - Extremities Extremities: No tenderness to palpate, Normal ROM s pain, No edema - Neuro Neuro: No motor deficit, No sensory deficit, Other (LTS intact left thumb with FROM and strength (flexion, extension, abduction, adduction) of left thumb) PD ED PE EXPANDED - Extremities JEREMY UE/Hands Visual: 1 - laceration (superficial linear abrasion/laceration , 3 cm length. underlying soft tissue is not visible and the wound does not open even with ROM and with gentle traction) Results - Vitals Vitals: Vital Signs - 24 hr 07/03/21 00:33 Temperature 36.6 C Heart Rate 97 Respiratory 16 Rate Blood Pressure 164/116 H O2 Saturation 98 Oxygen O2 Source Room air PD MEDICAL DECISION MAKING - ED course Complexity details: reviewed old records, considered differential, d/w patient ED course: presents with superficial linear abrasion/laceration to left thenar eminence. ROM is intact as is light touch sensation of left thumb. He is UTD on tetanus. I advised him that the wound is superficial and does not need any type of repair, such as sutures, glue, or even steri-strips. He asks about "pain management" (per patient). I advised him that ibuprofen and/or tylenol should be adequate for this superficial injury. He says he takes ibuprofen already for back pain and "it isn't working". I again point out that he can take tylenol if the ibuprofen alone isn't working. He does not appear satisfied with this response; I do not feel prescription medications including narcotics/opiates would be appropriate for this superficial injury, which he again seems unsatisfied with. Departure - Departure Disposition: 01 Home, Self Care Clinical Impression: Superficial laceration of hand Qualifiers: Encounter type: initial encounter Laterality: left Qualified Code(s): S61.412A - Laceration without foreign body of left hand, initial encounter Condition: Good Instructions: ED Laceration Small Superf No Sutr Follow-Up: Danika García PA-C [Primary Care Provider] - Comments: clean the cut twice per day with soap and water; dry after washing and then apply an antibiotic ointment such as bacitracin or polysporin Discharge Date/Time: 07/03/21 02:57
[2021-07-03] MEDS ORDERED: BACITRACIN ZINC OINT 1 PACKET TOP STA (02:22)
== END 2021-07-03 02:57 | disposition home or self-care (01) ==
LOC: ED 00:30
DX: S61.412A Laceration without foreign body of left hand, initial encounter (principal); W26.0XXA Contact with knife, initial encounter; Y92.009 Unspecified place in unspecified non-institutional (private) residence as the place of occurrence of the external cause; F32.9 Major depressive disorder, single episode, unspecified; G89.29 Other chronic pain; M54.9 Dorsalgia, unspecified; Z79.899 Other long term (current) drug therapy; F17.200 Nicotine dependence, unspecified, uncomplicated
CPT/HCPCS: 99282; A9270

== ENCOUNTER 2021-08-02 17:26 | Outpatient (CLI) | payer MEDICARE, MEDICAID | END 2021-08-02 17:27 | disposition critical access hospital (66) | LOC: EMS 17:26 | DX: R07.9 Chest pain, unspecified (principal) | CPT/HCPCS: A0425; A0427 ==

== ENCOUNTER 2021-08-02 17:49 | Emergency (ER) | payer MEDICARE, MEDICAID ==
[2021-08-02 18:29] LABS: BASOPHILS % (AUTO) 0.4 %; EOSINOPHILS # (AUTO) 0.2 10^3/uL (0.0-0.7); EOSINOPHILS % (AUTO) 1.9 %; HCT - HEMATOCRIT 40.5 % (42.0-52.0); HGB - HEMOGLOBIN 13.8 g/dL (14.0-18.0); LYMPHOCYTES # (AUTO) 1.1 10^3/uL (1.5-3.5); LYMPHOCYTES % (AUTO) 14.4 %; MEAN CORPUSCULAR HEMOGLOBIN 28.9 pg (27.0-31.0); MEAN CORPUSCULAR HGB CONC 34.1 g/dL (32.0-36.0); MEAN CORPUSCULAR VOLUME 84.9 fL (80.0-94.0); MEAN PLATELET VOLUME 11.7 fL (7.4-11.4); MONOCYTES # (AUTO) 0.6 10^3/uL (0.0-1.0); MONOCYTES % (AUTO) 7.4 %; NEUTROPHILS # (AUTO) 5.9 10^3/uL (1.5-6.6); NEUTROPHILS % (AUTO) 75.8 %; PLT - PLATELET COUNT 312 10^3/uL (130-450); RED BLOOD COUNT 4.77 10^6/uL (4.70-6.10); WHITE BLOOD COUNT 7.8 x10^3/uL (4.8-10.8)
[2021-08-02 18:44] LABS: ALBUMIN 3.6 g/dL (3.2-5.5); ALBUMIN/GLOBULIN RATIO 1.4 (1.0-2.2); BILIRUBIN,TOTAL 0.4 mg/dL (0.2-1.0); CALCIUM 8.8 mg/dL (8.5-10.3); CREATININE 0.8 mg/dL (0.6-1.2); TOTAL PROTEIN 6.2 g/dL (6.7-8.2)
[2021-08-02 18:47] LABS: POTASSIUM 2.4 mmol/L (3.5-5.0)
--- NOTE | 2021-08-02 19:16 | ED Physician Documentation ---
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 Worse with movement, better with rest. Worse with palpation. Took Motrin without relief Review of Systems Ten Systems: 10 systems reviewed and negative Constitutional: denies: Fever, Chills Nose: denies: Rhinorrhea / runny nose, Congestion Respiratory: denies: Cough GI: denies: Nausea, Vomiting, Diarrhea Skin: denies: Rash Musculoskeletal: reports: Back pain (chronic and unchanged.). denies: Neck pain Neurologic: denies: Headache PD PAST MEDICAL HISTORY - Past Medical History Past Medical History: Yes Cardiovascular: Murmur, Other Respiratory: Asthma Neuro: None Endocrine/Autoimmune: None GI: Chronic constipation : Incontinence HEENT: None Psych: Depression Musculoskeletal: Chronic back pain Derm: Other - Past Surgical History Past Surgical History: Yes General: Gastric surgery Ortho: Spine surgery HEENT: Tonsil/Adenoidectomy - Present Medications Home Medications: Ambulatory Orders Medication Instructions Recorded Confirmed Pregabalin [Lyrica] 300 mg PO BID 08/02/21 08/02/21 - Allergies Allergies/Adverse Reactions: Allergies Allergy/AdvReac Type Severity Reaction Status Date / Time morphine Allergy Intermediate terrors Verified 08/02/21 18:00 - Social History Does the pt smoke?: Yes Smoking Status: Current some day smoker Does the pt drink ETOH?: Yes Does the pt have substance abuse?: No - Immunizations Immunizations are current?: Yes - POLST Patient has POLST: No PD ED PE NORMAL - Vitals Vital signs reviewed: Yes - General General: Alert and oriented X 3, No acute distress, Well developed/nourished - HEENT HEENT: PERRL, Moist mucous membranes - Neck Neck: Supple, no meningeal sign - Cardiac Cardiac: RRR, Strong equal pulses, Other (TTP over the sternum. reproduces her pain.) - Respiratory Respiratory: No respiratory distress, Clear bilaterally - Abdomen Abdomen: Soft, Non tender, Non distended - Back Back: No spinal TTP - Derm Derm: Warm and dry - Extremities Extremities: No edema, No calf tenderness / cord - Neuro Neuro: Alert and oriented X 3 - Psych Psych: Normal mood, Normal affect Results - Vitals Vitals: Vital Signs - 24 hr 08/02/21 08/02/21 08/02/21 17:54 18:08 19:19 Temperature 36.9 C 36.3 C L Heart Rate 67 70 75 Respiratory 11 L 10 L 14 Rate Blood Pressure 142/98 H 142/92 H 152/100 H O2 Saturation 99 99 97 08/02/21 08/02/21 20:55 22:38 Temperature Heart Rate 66 72 Respiratory 14 18 Rate Blood Pressure 153/103 H 165/105 H O2 Saturation 98 94 Oxygen O2 Source Room air - EKG (time done) 1752 Rate: Rate (enter#) (64) Rhythm: NSR Atkins: Normal Intervals: Normal ID QRS: Normal Ischemia: ST elevation c/w repol Compare to prior EKG: Unchanged from prior EKG (05/24/2020) 1833 Rate: Rate (enter#) (59) Rhythm: NSR Atkins: Normal Intervals: Normal ID QRS: Normal Ischemia: ST elevation c/w repol Compare to prior EKG: Unchanged from prior EKG (05/24/2020) - Labs Labs: Laboratory Tests 08/02/21 08/02/21 08/02/21 18:19 18:19 18:19 WBC 7.8 RBC 4.77 Hgb 13.8 L Hct 40.5 L MCV 84.9 MCH 28.9 MCHC 34.1 RDW 14.0 Plt Count 312 MPV 11.7 H Neut # (Auto) 5.9 Lymph # (Auto) 1.1 L [place] # (Auto) 0.6 Eos # (Auto) 0.2 Baso # (Auto) 0.0 Absolute Nucleated RBC 0.00 Nucleated RBC % 0.0 Sodium 140 Potassium 2.4 L* Chloride 97 L Carbon Dioxide 30 Anion Gap 13.0 BUN 19 Creatinine 0.8 Estimated GFR (MDRD) 105 Glucose 105 H Calcium 8.8 Phosphorus Magnesium Total Bilirubin 0.4 AST 11 ALT 11 Alkaline Phosphatase 51 Troponin I High Sens 12.3 Total Protein 6.2 L Albumin 3.6 Globulin 2.6 Albumin/Globulin Ratio 1.4 Lipase 37 08/02/21 18:19 WBC RBC Hgb Hct MCV MCH MCHC RDW Plt Count MPV Neut # (Auto) Lymph # (Auto) [place] # (Auto) Eos # (Auto) Baso # (Auto) Absolute Nucleated RBC Nucleated RBC % Sodium Potassium Chloride Carbon Dioxide Anion Gap BUN Creatinine Estimated GFR (MDRD) Glucose Calcium Phosphorus 3.3 Magnesium 2.1 Total Bilirubin AST ALT Alkaline Phosphatase Troponin I High Sens Total Protein Albumin Globulin Albumin/Globulin Ratio Lipase - Rads (name of study) cxr Radiology: Final report received, EMP read contemporaneously, See rad report (1. No acute cardiopulmonary disease. ) PD MEDICAL DECISION MAKING - ED course Complexity details: reviewed results, re-evaluated patient, considered differential, d/w patient ED course: Patient is a 46-year-old male with atypical chest pain. Unclear etiology but seems musculoskeletal. Worse with palpation. No evidence of pericarditis and myocarditis. No evidence of ACS. No evidence of PE. He is also hypokalemic. He was given oral and IV potassium. This will be rechecked as well as his chest pain reevaluated. If he is feeling well, can likely go home with oral potassium and potentially pain medication if needed. Patient will be signed out to Dr. Blood for repeat evaluation. This document was made in part using voice recognition software. While efforts are made to proofread this document, sound alike and grammatical errors may occur. Departure - Departure Clinical Impression: Chest wall pain, Hypokalemia Chest pain Qualifiers: Chest pain type: unspecified Qualified Code(s): R07.9 - Chest pain, unspecified Condition: Stable
[2021-08-02] MEDS: POTASSIUM CHLORIDE 20 MEQ TABLET PO STA ×2 (19:18→23:46)
[2021-08-02 19:28] LABS: MAGNESIUM 2.1 mg/dL (1.7-2.8); PHOSPHORUS 3.3 mg/dL (2.5-4.6)
[2021-08-02] MEDS: HYDROcod/ACETAM 5/325 MG TABLET PO STA (19:40)
[2021-08-02] MEDS: SUCRALFATE 1 GM/10 ML UDC PO STA (19:41)
[2021-08-02] MEDS: MAG HYDROX/AL HYDROX/SIMETH 30 ML UDC PO STA (19:41)
--- NOTE | 2021-08-02 19:48 | XRAY Report ---
PROCEDURE: Chest 1 View X-Ray INDICATIONS: Chest Pain TECHNIQUE: One view of the chest was acquired. COMPARISON: 12/25/2020 FINDINGS: Surgical changes and devices: None. Lungs and pleura: No pleural effusions or pneumothorax. Lungs are clear. Mediastinum: Mediastinal contours appear normal. Heart size is normal. Bones and chest wall: No suspicious bony lesions. Overlying soft tissues appear unremarkable. IMPRESSION: 1. No acute cardiopulmonary disease. Reviewed by: Hossein Almanzar MD on 08/02/2021 7:47 PM PST Approved by: Hossein Almanzar MD on 08/02/2021 7:47 PM PST Station ID: [id number]
[2021-08-02] MEDS: POTASSIUM CHLOR 10 MEQ/100 ML 10 MEQ/100 ML BAG IV STA (21:06)
[2021-08-02] MEDS: ELECTROLYTE-A SOLUTION 1,000 ML IV ONE (21:06)
[2021-08-02 22:39] VITALS: BP 165/105
[2021-08-02] MEDS: CHERRY SYRUP 10 ML UDC PO ONE (23:37)
[2021-08-02] MEDS: DEXAMETHASONE 10 MG/ML VIAL PO STA (23:37)
[2021-08-02] MEDS: HYDROcod/ACET 5/325 Prepack 4 PO STA (23:48)
== END 2021-08-02 23:56 | disposition home or self-care (01) ==
LOC: EDUNIT# → ED 17:49
DX: R07.9 Chest pain, unspecified (principal); E87.6 Hypokalemia; F17.200 Nicotine dependence, unspecified, uncomplicated
CPT/HCPCS: 36415; 71045; 80053; 83690; 83735; 84100; 84132; 84484; 85025; 93005; 96360; 96361; 99284; A9270

== ENCOUNTER 2021-08-16 17:47 | Emergency (ER) | payer MEDICARE, MEDICAID ==
--- NOTE | 2021-08-16 18:04 | ED Physician Documentation ---
History of Present Illness - Stated complaint Stated Complaint: INGESTION - History obtained from History obtained from: Patient, EMS - Additonal information Additional information: 46-year-old gentleman who approximately 530 drank a cup of orange liquid that he thought was juice but turned out to be windshield washer fluid containing methanol. He is asymptomatic at this point but it only been about half an hour. Review of Systems Ten Systems: 10 systems reviewed and negative Constitutional: reports: Reviewed and negative Cardiac: reports: Reviewed and negative Respiratory: reports: Reviewed and negative PD PAST MEDICAL HISTORY - Past Medical History Cardiovascular: Murmur, Other Respiratory: Asthma Neuro: None Endocrine/Autoimmune: None GI: Chronic constipation : Incontinence HEENT: None Psych: Depression Musculoskeletal: Chronic back pain Derm: Other - Past Surgical History Past Surgical History: Yes General: Gastric surgery Ortho: Spine surgery HEENT: Tonsil/Adenoidectomy - Present Medications Home Medications: Ambulatory Orders Medication Instructions Recorded Confirmed HYDROcod/ACETAM 5/325 [[place] 5/325] 1 - 2 tablet PO Q6H PRN #14 tablet 08/02/21 Potassium Chloride 20 meq PO BID #10 tab 08/02/21 Pregabalin [Lyrica] 300 mg PO BID 08/02/21 08/02/21 - Allergies Allergies/Adverse Reactions: Allergies Allergy/AdvReac Type Severity Reaction Status Date / Time morphine Allergy Intermediate terrors Verified 08/02/21 18:00 - Social History Does the pt smoke?: Yes Smoking Status: Current some day smoker Does the pt drink ETOH?: Yes Does the pt have substance abuse?: No - Family History Family history: reports: Non contributory - Immunizations Immunizations are current?: Yes - POLST Patient has POLST: No PD ED PE NORMAL - Vitals Vital signs reviewed: Yes (He is tachycardic) - General General: Alert and oriented X 3, No acute distress, Well developed/nourished - HEENT HEENT: PERRL, EOMI - Neck Neck: Supple, no meningeal sign, No bony TTP - Cardiac Cardiac: RRR, No murmur - Respiratory Respiratory: No respiratory distress, Clear bilaterally - Abdomen Abdomen: Non tender - Derm Derm: Normal color, Warm and dry - Extremities Extremities: No edema, No calf tenderness / cord - Neuro Neuro: Alert and oriented X 3, Normal speech - Psych Psych: Normal mood, Normal affect Results - Vitals Vitals: Vital Signs - 24 hr 08/16/21 17:59 Temperature 36.7 C Heart Rate 126 H Respiratory 25 H Rate Blood Pressure 174/117 H O2 Saturation 97 Oxygen O2 Source Room air - EKG (time done) 1800 Rate: Rate (enter#) (120) Rhythm: Sinus tachycardia [place]: Normal Intervals: Normal NH QRS: Normal Ischemia: Normal ST segments PD MEDICAL DECISION MAKING - ED course ED course: Call placed to poison control after initial evaluation and they feel he either needs fomepizole or IV alcohol. Neither of these are available to us so they recommended stat transfer to a facility that does. We also do not have the capability to order toxic alcohol levels. They recommended a stat transfer and as such given the current Covid outbreak and hospital capacity he was graciously excepted [place] by Dr. Chu and elaine were completed and he will fly given the need for rapid evaluation and treatment. Departure - Departure Disposition: 02 Transfer Acute Care Hosp Clinical Impression: Methanol poisoning Condition: Serious
[2021-08-16 18:05] VITALS: BP 174/117
[2021-08-16 18:16] LABS: BASOPHILS # (AUTO) 0.1 10^3/uL (0.0-0.1); BASOPHILS % (AUTO) 0.6 %; EOSINOPHILS # (AUTO) 0.2 10^3/uL (0.0-0.7); EOSINOPHILS % (AUTO) 1.9 %; HCT - HEMATOCRIT 40.3 % (42.0-52.0); HGB - HEMOGLOBIN 12.9 g/dL (14.0-18.0); LYMPHOCYTES # (AUTO) 1.4 10^3/uL (1.5-3.5); LYMPHOCYTES % (AUTO) 17.1 %; MEAN CORPUSCULAR HEMOGLOBIN 28.2 pg (27.0-31.0); MEAN PLATELET VOLUME 11.1 fL (7.4-11.4); MONOCYTES # (AUTO) 0.5 10^3/uL (0.0-1.0); NEUTROPHILS # (AUTO) 6.2 10^3/uL (1.5-6.6); PLT - PLATELET COUNT 244 10^3/uL (130-450); RED BLOOD COUNT 4.58 10^6/uL (4.70-6.10); RED CELL DISTRIBUTION WIDTH 14.4 % (12.0-15.0); WHITE BLOOD COUNT 8.4 x10^3/uL (4.8-10.8)
[2021-08-16 18:29] LABS: ACETAMINOPHEN < 10 ug/mL (10-30); ALBUMIN 3.9 g/dL (3.2-5.5); ALBUMIN/GLOBULIN RATIO 1.3 (1.0-2.2); ALKALINE PHOSPHATASE 70 IU/L (42-121); ALT ALANINE AMINOTRANSFERASE 12 IU/L (10-60); AST ASPARTATE AMINOTRANSFERASE 14 IU/L (10-42); BILIRUBIN,TOTAL 0.4 mg/dL (0.2-1.0); BUN - BLOOD UREA NITROGEN 17 mg/dL (6-20); CALCIUM 9.3 mg/dL (8.5-10.3); CARBON DIOXIDE - CO2 28 mmol/L (21-32); CHLORIDE 102 mmol/L (101-111); CREATININE 0.8 mg/dL (0.6-1.2); ETOH - ETHANOL < 5.0 mg/dL; GFR - MDRD 105 (>89); GLUCOSE 111 mg/dL (70-100); LIPASE 25 U/L (22-51); POTASSIUM 3.5 mmol/L (3.5-5.0); SALICYLATE < 6.0 mg/dL; SODIUM 141 mmol/L (135-145); TOTAL PROTEIN 6.9 g/dL (6.7-8.2)
[2021-08-16 19:03] LABS: B. PARAPERTUSSIS- RESP PCR PAN NOT DETECTED; B. PERTUSSIS- RESP PCR PANEL NOT DETECTED; C. PNEUMONIAE- RESP PCR PANEL NOT DETECTED; CORONAVIRUS 229E-RESP PCR NOT DETECTED; CORONAVIRUS HKU1-RESP PCR NOT DETECTED; CORONAVIRUS NL63-RESP PCR NOT DETECTED; CORONAVIRUS OC43-RESP PCR NOT DETECTED; HUMAN METAPNEUMOVIRUS NOT DETECTED; INFLUENZA A- RESP PCR PANEL NOT DETECTED; INFLUENZA B - RESP PCR PANEL NOT DETECTED; M. PNEUMONIAE- RESP PCR PANEL NOT DETECTED; PARAINFLUENZA VIRUS 1 NOT DETECTED; PARAINFLUENZA VIRUS 2 NOT DETECTED; PARAINFLUENZA VIRUS 3 NOT DETECTED; PARAINFLUENZA VIRUS 4 NOT DETECTED; RHINOVIRUS/ENTEROVIRUS NOT DETECTED; RSV- RESP PCR PANEL NOT DETECTED; SARS-CoV-2 -RESP PCR PANEL NOT DETECTED
== END 2021-08-16 18:35 | disposition short-term general hospital (02) ==
LOC: EDUNIT# → ED 17:47
DX: T51.1X1A Toxic effect of methanol, accidental (unintentional), initial encounter (principal); F17.200 Nicotine dependence, unspecified, uncomplicated; Z20.822 Contact with and (suspected) exposure to COVID-19
CPT/HCPCS: 36415; 80053; 80307; 83605; 83690; 84443; 85025; 87631; 93005; 99283; 99285; G0480; 0202U; 80320; 80329

== ENCOUNTER 2021-08-24 08:00 | Outpatient (CLI) | payer MEDICARE, MEDICAID ==
[2021-08-24 18:41] LABS: BASOPHILS % (AUTO) 0.5 %; EOSINOPHILS # (AUTO) 0.1 10^3/uL (0.0-0.7); EOSINOPHILS % (AUTO) 2.2 %; HCT - HEMATOCRIT 44.9 % (42.0-52.0); HGB - HEMOGLOBIN 14.1 g/dL (14.0-18.0); LYMPHOCYTES % (AUTO) 15.3 %; MEAN CORPUSCULAR HEMOGLOBIN 28.1 pg (27.0-31.0); MEAN CORPUSCULAR HGB CONC 31.4 g/dL (32.0-36.0); MEAN CORPUSCULAR VOLUME 89.6 fL (80.0-94.0); MONOCYTES # (AUTO) 0.7 10^3/uL (0.0-1.0); MONOCYTES % (AUTO) 10.5 %; NEUTROPHILS # (AUTO) 4.6 10^3/uL (1.5-6.6); PLT - PLATELET COUNT 270 10^3/uL (130-450); RED BLOOD COUNT 5.01 10^6/uL (4.70-6.10); RED CELL DISTRIBUTION WIDTH 14.4 % (12.0-15.0); WHITE BLOOD COUNT 6.4 x10^3/uL (4.8-10.8)
[2021-08-24 19:04] LABS: ALBUMIN/GLOBULIN RATIO 1.1 (1.0-2.2); ALKALINE PHOSPHATASE 70 IU/L (42-121); ALT ALANINE AMINOTRANSFERASE 13 IU/L (10-60); AST ASPARTATE AMINOTRANSFERASE 12 IU/L (10-42); BILIRUBIN,TOTAL 0.3 mg/dL (0.2-1.0); BUN - BLOOD UREA NITROGEN 20 mg/dL (6-20); CALCIUM 9.4 mg/dL (8.5-10.3); CARBON DIOXIDE - CO2 30 mmol/L (21-32); CHLORIDE 102 mmol/L (101-111); CHOL/HDL RATIO 7.1 (<5.0); CHOLESTEROL 249 mg/dL; CRP - C-REACTIVE PROTEIN 3.2 mg/dL (0-1.0); GFR - MDRD 81 (>89); HDL CHOLESTEROL 35 mg/dL; LDL CHOLESTEROL,CALCULATED 186 mg/dL; LDL/HDL RATIO 5.3 (<3.6); POTASSIUM 3.5 mmol/L (3.5-5.0); SODIUM 143 mmol/L (135-145); TOTAL PROTEIN 7.6 g/dL (6.7-8.2); TRIGLYCERIDES 141 mg/dL; VLDL CHOLESTEROL 28 mg/dL
[2021-08-24 19:08] LABS: GLUCOSE 47 mg/dL (70-100)
== END 2021-08-24 23:59 ==
LOC: LAB.WCP 08:00
PROVIDERS: ATTEND Physician Assistant Medical
DX: I10 Essential (primary) hypertension (principal); D33.4 Benign neoplasm of spinal cord; Z12.5 Encounter for screening for malignant neoplasm of prostate; N52.9 Male erectile dysfunction, unspecified; E87.6 Hypokalemia
CPT/HCPCS: 36415; 80053; 80061; 84403; 85025; 85651; 86140; G0103; 83721; 84153

== ENCOUNTER 2021-09-09 19:17 | Emergency (ER) | payer MEDICARE, MEDICAID ==
[2021-09-09] MEDS ORDERED: DEXAMETHASONE 10 MG/ML VIAL IM STA (19:54)
[2021-09-09] MEDS ORDERED: KETOROLAC 60 MG/2 ML VIAL IM STA (19:54)
[2021-09-09] MEDS ORDERED: GABAPENTIN 100 MG CAPSULE PO STA (19:54)
--- NOTE | 2021-09-09 20:03 | ED Physician Documentation ---
History of Present Illness - Stated complaint Stated Complaint: RT LEG PX - Chief complaint Chief Complaint: General - History obtained from History obtained from: Patient - Additonal information Additional information: The patient comes to the emergency department with chief complaint of pain and numbness in his right leg that shoots from his hip all the way down. He has had the symptoms chronically for about the last 6 months but feels that they are getting worse. The patient back in 2009 had a spinal surgery for benign masses and initially could not walk him but slowly progressed to being able to ambulate first with a walker and then a cane and then finally on his own. Patient states he feels as though the process has been reversing over the last 6 months. He has been seen in the emergency department a couple of times for this and then by his primary care physician since. He states he has a chronic pain management appointment coming up in about a week and a half and this will be his first time seeing them. He also has a neurosurgery appointment next month. The patient has chronic constipation and urinary incontinence. His last MRI was in 2019, and still showed some masses. He states his primary care physician has set him up to get MRI but he needs to call and actually set up the appointment with radiology. States he can get the shooting pains anytime, but that it is t riggered by standing up. He states that he gets pain shooting down his leg and then his knee bret. Patient states he has fallen on and off because of this. No other new symptoms. No other complaints at this time. Review of Systems Ten Systems: 10 systems reviewed and negative Constitutional: reports: Reviewed and negative Eyes: reports: Reviewed and negative Ears: reports: Reviewed and negative Nose: reports: Reviewed and negative Throat: reports: Reviewed and negative Cardiac: reports: Reviewed and negative Respiratory: reports: Reviewed and negative GI: reports: Reviewed and negative : reports: Reviewed and negative Skin: reports: Reviewed and negative Musculoskeletal: reports: Extremity pain, Pain with weight bearing Neurologic: reports: Reviewed and negative Psychiatric: reports: Reviewed and negative Endocrine: reports: Reviewed and negative Immunocompromised: reports: Reviewed and negative PD PAST MEDICAL HISTORY - Past Medical History Cardiovascular: Murmur, Other Respiratory: Asthma Neuro: None Endocrine/Autoimmune: None GI: Chronic constipation : Incontinence HEENT: None Psych: Depression Musculoskeletal: Chronic back pain Derm: Other - Past Surgical History Past Surgical History: Yes General: Gastric surgery Ortho: Spine surgery HEENT: Tonsil/Adenoidectomy - Present Medications Home Medications: Ambulatory Orders Medication Instructions Recorded Confirmed HYDROcod/ACETAM 5/325 [[place] 5/325] 1 - 2 tablet PO Q6H PRN #14 tablet 08/02/21 Potassium Chloride 20 meq PO BID #10 tab 08/02/21 Pregabalin [Lyrica] 300 mg PO BID 08/02/21 08/02/21 Cyclobenzaprine [Flexeril] 10 mg PO TID PRN #20 tablet 09/09/21 Gabapentin [Neurontin] 300 mg PO TID #45 cap 09/09/21 predniSONE [Deltasone] 60 mg PO DAILY 5 Days #15 tablet 09/09/21 - Allergies Allergies/Adverse Reactions: Allergies Allergy/AdvReac Type Severity Reaction Status Date / Time morphine Allergy Intermediate terrors Verified 08/02/21 18:00 - Social History Does the pt smoke?: Yes Smoking Status: Current every day smoker Does the pt drink ETOH?: Yes Does the pt have substance abuse?: No - Immunizations Immunizations are current?: Yes - POLST Patient has POLST: No PD ED PE NORMAL - Vitals Vital signs reviewed: Yes - General General: Alert and oriented X 3, No acute distress, Well developed/nourished - HEENT HEENT: Atraumatic, PERRL, EOMI, Moist mucous membranes - Neck Neck: Supple, no meningeal sign, No bony TTP - Cardiac Cardiac: Strong equal pulses - Respiratory Respiratory: No respiratory distress - Abdomen Abdomen: Soft, Non tender, Non distended - Back Back: No CVA TTP, No spinal TTP - Derm Derm: Normal color, Warm and dry, No rash - Extremities Extremities: No deformity, No tenderness to palpate, Normal ROM s pain (Bili), No edema - Neuro Neuro: Alert and oriented X 3, monotyper 2-12 intact, Normal speech, Other (Bilateral lower extremity numbness) - Psych Psych: Normal mood, Normal affect Results - Vitals Vitals: Vital Signs - 24 hr 09/09/21 19:26 Temperature 36.5 C Heart Rate 103 H Respiratory 20 Rate Blood Pressure 183/129 H O2 Saturation 100 Oxygen O2 Source Room air PD MEDICAL DECISION MAKING - ED course Complexity details: considered differential, d/w patient ED course: I reviewed the patient's records and his visits here for similar complaints. Much of what the patient was reporting was chronic over months and the patient already was well-established with primary care and had appropriate imaging orders and specialty follow-up coming up. As such, I did focus on symptomatic management. The last time the patient was here in May for this, he had had a succession of visits requesting narcotic pain medication, and had not followed up in primary care. At that time he was admonished that he needed to stop using the emergency department for chronic pain management and see his primary care provider instead. I have discussed with him that I will treat his pain here and have ordered Toradol, Decadron, and gabapentin for this. I will give him prescriptions for gabapentin and prednisone for home. He is encouraged to speak with his primary care provider first thing on Saturday, as this is Saturday night, and try to come up with a plan for pain management until he can see the chronic pain specialist. He is also given a knee immobilizer to help stabilize his weak knee until he can see his primary doctor as well. We have discussed the usual indications for return. Departure - Departure Disposition: Home, Self Care Clinical Impression: Chronic pain Qualifiers: Chronic pain type: chronic pain syndrome Qualified Code(s): G89.4 - Chronic pain syndrome Lower extremity weakness Qualifiers: Laterality: bilateral Qualified Code(s): R29.898 - Other symptoms and signs involving the musculoskeletal system Condition: Stable Instructions: ED Chronic Pain Management Prescriptions: predniSONE [Deltasone] 60 mg PO DAILY 5 Days #15 tablet Cyclobenzaprine [Flexeril] 10 mg PO TID PRN #20 tablet PRN Reason: Spasms Gabapentin [Neurontin] 300 mg PO TID #45 cap Comments: It is very very important that you follow-up for your chronic pain appointment and neurosurgical appointment, as well as get the MRIs done as soon as possible. We have treated you with various medications for your symptoms here in the emergency department, and I have prescribed some the same. However, your outpatient pain management should be through your primary care physician until you can see the pain specialist. You may use the knee immobilizer to help stabilize your leg if needed.
[2021-09-09] MEDS ORDERED: DEXAMETHASONE 10 MG/ML VIAL ONE (20:21)
[2021-09-09 20:22] VITALS: BP 152/109
== END 2021-09-09 20:24 | disposition home or self-care (01) ==
LOC: ED 19:17
DX: M79.661 Pain in right lower leg (principal); G89.29 Other chronic pain; R29.898 Other symptoms and signs involving the musculoskeletal system; F17.200 Nicotine dependence, unspecified, uncomplicated
CPT/HCPCS: 96372; 99283; A9270

== ENCOUNTER 2021-09-11 02:33 | Outpatient (CLI) | payer MEDICARE, MEDICAID | END 2021-09-11 02:34 | disposition critical access hospital (66) | LOC: EMS 02:33 | DX: S01.01XA Laceration without foreign body of scalp, initial encounter (principal); W19.XXXA Unspecified fall, initial encounter; Y92.030 Kitchen in apartment as the place of occurrence of the external cause; Z20.822 Contact with and (suspected) exposure to COVID-19 | CPT/HCPCS: A0425; A0429 ==

== ENCOUNTER 2021-09-11 02:56 | Emergency (ER) | payer MEDICARE, MEDICAID ==
[2021-09-11] MEDS ORDERED: LIDOCAINE 1%-EPI 1:100000 20 ML MDV SUBQ STA (02:59)
--- NOTE | 2021-09-11 03:00 | ED Physician Documentation ---
PD HPI HEAD INJURY - Stated complaint Stated Complaint: FELL - History obtained from History obtained from: Patient, EMS - Additional information Additional information: He was at home and smokes marijuana and took his Lyrica, then he passed out hitting his head may be on the microwave on the way down. He does not remember it. He has a laceration on the head and in the right eyebrow. No other injuries. Review of Systems Constitutional: reports: Reviewed and negative Ears: reports: Reviewed and negative Nose: reports: Reviewed and negative Throat: reports: Reviewed and negative PD PAST MEDICAL HISTORY - Past Medical History Cardiovascular: Murmur, Other Respiratory: Asthma Neuro: None Endocrine/Autoimmune: None GI: Chronic constipation : Incontinence HEENT: None Psych: Depression Musculoskeletal: Chronic back pain Derm: Other - Past Surgical History Past Surgical History: Yes General: Gastric surgery Ortho: Spine surgery HEENT: Tonsil/Adenoidectomy - Present Medications Home Medications: Ambulatory Orders Medication Instructions Recorded Confirmed Pregabalin [Lyrica] 300 mg PO BID 08/02/21 09/11/21 Metoprolol Succinate [Toprol Xl] 50 mg PO DAILY 09/11/21 09/11/21 - Allergies Allergies/Adverse Reactions: Allergies Allergy/AdvReac Type Severity Reaction Status Date / Time morphine Allergy Intermediate terrors Verified 09/11/21 03:14 - Social History Does the pt smoke?: Yes Smoking Status: Current every day smoker Does the pt drink ETOH?: Yes Does the pt have substance abuse?: No - Immunizations Immunizations are current?: Yes - POLST Patient has POLST: No PD ED PE NORMAL - Vitals Vital signs reviewed: Yes - General General: Alert and oriented X 3, No acute distress - HEENT HEENT: Other (3 cm laceration right vertex parietal area. Also an abrasion within the right eyebrow. Small pupils.) - Neck Neck: No bony TTP (But maintained in a c-collar pending imaging given potential for intoxication) - Neuro Neuro: Alert and oriented X 3, hairspring adjuster 2-12 intact, No motor deficit, No sensory deficit, Normal speech Results - Vitals Vitals: Vital Signs - 24 hr 09/11/21 09/11/21 09/11/21 03:13 03:32 04:21 Temperature 36.9 C Heart Rate 97 97 95 Respiratory 20 16 13 Rate Blood Pressure 164/100 H 164/100 H 137/95 H O2 Saturation 99 97 95 Oxygen O2 Source Room air - Rads (name of study) CT cervical spine Radiology: EMP read contemporaneously (NAD) CT Head Radiology: EMP read contemporaneously (NAD) Procedures - Laceration (location) scalp Length in cm: 2 Wound type: Curved, Superficial, Into subcut fat Anesthesia: Lidocaine 1% with epi Wound preparation: Irrigated copiously NS Skin layer closure: [place] (4) Other: Tetanus UTD PD MEDICAL DECISION MAKING - ED course ED course: Note for MIPS measure, since he has drug intoxication and a headache, he does fit criteria for CT of the head for head injury. Departure - Departure Disposition: 01 Home, Self Care Clinical Impression: Injury of head and neck Qualifiers: Encounter type: initial encounter Qualified Code(s): S09.90XA - Unspecified injury of head, initial encounter Scalp laceration Qualifiers: Encounter type: initial encounter Qualified Code(s): S01.01XA - Laceration without foreign body of scalp, initial encounter Condition: Good Instructions: ED Laceration Scalp Stitch Or Stap Comments: I would recommend not combining THC with your Lyrica, obviously it makes you too drowsy to function and puts you in danger. Tylenol per package instructions as needed for pain. Come back for any signs of infection which would include: Redness, swelling, drainage, increased pain, or fevers. You can wash it soap and water. Keep it covered and moist with bacitracin ointment which is available over the counter; avoid neosporin. Follow-up with your physician in 7 to 10 days for staple removal.
[2021-09-11] MEDS ORDERED: ACETAMINOPHEN 325 MG TABLET PO STA (03:12)
[2021-09-11 07:20] VITALS: BP 138/95
--- NOTE | 2021-09-11 07:57 | CT Report ---
PROCEDURE: CERVICAL SPINE WO INDICATIONS: head inj TECHNIQUE: Noncontrast 3 mm thick sections acquired from the skull base to the T4 level. Sagittal and coronal r eformats were then constructed. For radiation dose reduction, the following was used: automated exp osure control, adjustment of mA and/or kV according to patient size. COMPARISON: None. FINDINGS: Image quality: Excellent. Bones: No fractures or dislocations. Visualized superior ribs are intact. Soft tissues: Prevertebral soft tissues are normal in thickness. No paravertebral hematomas. No ap ical pneumothoraces. IMPRESSION: No acute osseous abnormalities. Reviewed by: Diana Schaeffer MD on 09/11/2021 7:55 AM [facility] Approved by: Diana Schaeffer MD on 09/11/2021 7:55 AM [facility] Station ID: [id number]
--- NOTE | 2021-09-11 07:58 | CT Report ---
PROCEDURE: HEAD WO INDICATIONS: head inj TECHNIQUE: Noncontrast 4.5 mm thick angled axial sections acquired from the foramen magnum to the vertex. For r adiation dose reduction, the following was used: automated exposure control, adjustment of mA and/or kV according to patient size. COMPARISON: None. FINDINGS: Image quality: Mild motion artifacts. CSF spaces: Basal cisterns are patent. No extra-axial fluid collections. Ventricles are normal in size and shape. Brain: No midline shift. No intracranial masses or hemorrhage. Amaral-white matter interface is norm al. Skull and face: Calvarium and visualized facial bones are intact, without suspicious lesions. Sinuses: Visualized sinuses and mastoids are clear. IMPRESSION: No acute abnormalities. No significant discrepancy with the preliminary interpretation. Reviewed by: Diana Schaeffer MD on 09/11/2021 7:56 AM PST Approved by: Diana Schaeffer MD on 09/11/2021 7:56 AM [facility] Station ID: [id number]
== END 2021-09-11 05:52 | disposition home or self-care (01) ==
LOC: EDUNIT# → SUPCPDRO 02:56 → ED 02:56
DX: S09.90XA Unspecified injury of head, initial encounter (principal); S01.01XA Laceration without foreign body of scalp, initial encounter; W18.30XA Fall on same level, unspecified, initial encounter; R51.9 Headache, unspecified; F17.200 Nicotine dependence, unspecified, uncomplicated
CPT/HCPCS: 12001; 70450; 72125; 99283; 99284; A9270

== ENCOUNTER 2021-09-15 20:33 | Emergency (ER) | payer MEDICARE, MEDICAID ==
--- NOTE | 2021-09-15 21:20 | ED Physician Documentation ---
History of Present Illness - Stated complaint Stated Complaint: LT LEG SWOLLEN/PAIN & FEVER - Chief complaint Chief Complaint: Ext Problem - History obtained from History obtained from: Patient - Additonal information Additional information: 46yM with PMH spinal schwannoma s/p resection in 2010 with recurrence noted in 2019, chronic urinary and defecation issues, p/w LLE swelling, pain, erythema over the past two days, worst in the L first toe and L knee where he has abrasions that he states intermittently ooze and open up but are scabbed over at present. denies fevers, groin numbness. didn't notice the leg swelling. states his incontinence issues have worsened gradually over the past year or so. No personal history of blood clots. not on steroids/hormones. no recent surgery, bedrest, travel. +FH of DVT in father. Review of Systems Ten Systems: 10 systems reviewed and negative Constitutional: denies: Fever, Chills Musculoskeletal: reports: Extremity pain, Extremity swelling Neurologic: reports: Generalized weakness (chronic), Numbness (chronic) PD PAST MEDICAL HISTORY - Past Medical History Cardiovascular: Murmur, Other Respiratory: Asthma Neuro: None Endocrine/Autoimmune: None GI: Chronic constipation : Incontinence HEENT: None Psych: Depression Musculoskeletal: Chronic back pain Derm: Other - Past Surgical History Past Surgical History: Yes General: Gastric surgery Ortho: Spine surgery HEENT: Tonsil/Adenoidectomy - Present Medications Home Medications: Ambulatory Orders Medication Instructions Recorded Confirmed Pregabalin [Lyrica] 300 mg PO BID 08/02/21 09/11/21 Metoprolol Succinate [Toprol Xl] 50 mg PO DAILY 09/11/21 09/11/21 Mupirocin 2% Oint [Bactroban 2% 1 applic TOP BID #50 gm 09/15/21 Oint] cephALEXin [Keflex] 500 mg PO Q6H #28 09/15/21 - Allergies Allergies/Adverse Reactions: Allergies Allergy/AdvReac Type Severity Reaction Status Date / Time morphine Allergy Intermediate terrors Verified 09/15/21 20:47 - Social History Does the pt smoke?: Yes Smoking Status: Current every day smoker Does the pt drink ETOH?: Yes Does the pt have substance abuse?: No - Immunizations Immunizations are current?: Yes - POLST Patient has POLST: No PD ED PE NORMAL - Vitals Vital signs reviewed: Yes - General General: Alert and oriented X 3, No acute distress, Well developed/nourished - HEENT HEENT: Atraumatic, PERRL, EOMI - Neck Neck: Supple, no meningeal sign - Derm Derm: Normal color, Warm and dry, Other (erythema to L first toe and L anterior knee with overlying abrasions and chronic appearing scab formation) - Extremities Extremities: No deformity, Other (2+ edema LLE. 1+ edema RLE. weakly palpable DP pulses bilaterally) - Neuro Neuro: Other (BL diminished sensation to LE that patient states is chronic) - Psych Psych: Normal mood, Normal affect Results - Vitals Vitals: Vital Signs - 24 hr 09/15/21 09/15/21 20:40 21:44 Temperature 36.6 C Heart Rate 100 80 Respiratory 16 20 Rate Blood Pressure 154/120 H 177/126 H O2 Saturation 100 99 Oxygen O2 Source Room air PD MEDICAL DECISION MAKING - ED course ED course: Patient p/w cellulitis of LLE. U/s DVT study negative. plan to f/u for wound check, repeat ultrasound, and reevaluation of symptoms with Dr. Danika García, his PCP. He believes he has an appointment Sep 20. Also in process of establishing care with new neurosurgeon. return precautions discussed. Departure - Departure Disposition: 01 Home, Self Care Clinical Impression: Cellulitis, Leg swelling, Pain in extremity Condition: Stable Instructions: Cellulitis Dc Follow-Up: Danika García PA-C [Primary Care Provider] - Prescriptions: Mupirocin 2% Oint [Bactroban 2% Oint] 1 applic TOP BID #50 gm cephALEXin [Keflex] 500 mg PO Q6H #28 Comments: You were seen in the ED for evaluation of leg swelling and redness and found to have cellulitis. An ultrasound was done of your leg that showed no blood clots. You should follow up with your primary provider for wound check and follow up ultrasound, and follow up to establish care with a neurosurgeon. Return to the ED if you have new or worsening symptoms or other concerns.
[2021-09-15] MEDS ORDERED: cephALEXin 250 MG CAPSULE PO STA (21:23)
[2021-09-15] MEDS ORDERED: KETOROLAC 30 MG/ML VIAL IM STA (21:24)
--- NOTE | 2021-09-15 22:23 | Ultrasound Report ---
PROCEDURE: Duplex Ext Veins Left INDICATIONS: swelling LLE>RLE TECHNIQUE: Real-time imaging, as well as color and pulse Doppler interrogation, were performed of the lower extr emity deep veins from the inguinal ligament to the popliteal fossa. COMPARISON: None. FINDINGS: The deep veins are normally compressible, and free of intraluminal thrombus. Color and pu lse Doppler demonstrate normal phasic intraluminal flow. There is normal augmentation response to di stal compression maneuver. A 2.5 x 1.4 x 0.4 cm Sanches cyst can be seen. IMPRESSION: No findings of deep venous thrombosis are seen. Small Sanches cyst incidentally noted. Note: Concordant preliminary findings given by the napper runner upon the completion of the examination to Dr. Burton. Reviewed by: Sravan Bowen MD on 09/15/2021 9:21 PM [facility] Approved by: Sravan Bowen MD on 09/15/2021 9:21 PM [facility] Station ID: [id number]
[2021-09-15 22:29] VITALS: BP 176/121
== END 2021-09-15 22:40 | disposition home or self-care (01) ==
LOC: ED 20:33
DX: L03.116 Cellulitis of left lower limb (principal); F17.200 Nicotine dependence, unspecified, uncomplicated
CPT/HCPCS: 93971; 96372; 99284; A9270

== ENCOUNTER 2021-09-28 20:04 | Outpatient (CLI) | payer MEDICARE, MEDICAID | END 2021-09-28 20:05 | disposition critical access hospital (66) | LOC: EMS 20:04 | DX: M79.651 Pain in right thigh (principal) | CPT/HCPCS: A0425; A0429 ==

== ENCOUNTER 2021-09-28 20:28 | Emergency (ER) | payer MEDICARE, MEDICAID ==
[2021-09-28] MEDS ORDERED: KETOROLAC 60 MG/2 ML VIAL IM STA (20:42)
[2021-09-28] MEDS ORDERED: methocarbamoL 500 MG TABLET PO STA (20:42)
[2021-09-28] MEDS ORDERED: HYDROcod/ACETAM 5/325 MG TABLET PO STA (20:42)
--- NOTE | 2021-09-28 20:46 | ED Physician Documentation ---
History of Present Illness - Stated complaint Stated Complaint: PAIN IN THIGH - Chief complaint Chief Complaint: Ext Problem - History obtained from History obtained from: Patient - History of Present Illness Timing: How many days ago (2) Pain level max: 10 Pain level now: 10 - Additonal information Additional information: Patient is a 46-year-old male with chronic back and leg pain. He states that he has schwannoma tumors in his spinal column. He is working with his doctor and neurosurgery regarding this. He states he was supposed to see a pain clinic last week but had to reschedule his appointment. He currently does not have any pain medication at home. He states that he fell 2 days ago and injured the posterior aspect of the right leg. Worse with movement, better with rest. Has not been taking anything for the pain. No head injury. Has chronic urinary and fecal incontinence. Not worse than usual. Review of Systems Constitutional: denies: Fever, Chills Cardiac: denies: Chest pain / pressure Respiratory: denies: Cough GI: denies: Vomiting, Diarrhea Skin: denies: Rash Musculoskeletal: reports: Back pain (No change to his chronic back pain) Neurologic: denies: Focal weakness, Numbness PD PAST MEDICAL HISTORY - Past Medical History Cardiovascular: Murmur, Other Respiratory: Asthma Neuro: None Endocrine/Autoimmune: None GI: Chronic constipation : Incontinence HEENT: None Psych: Depression Musculoskeletal: Chronic back pain Derm: Other - Past Surgical History Past Surgical History: Yes General: Gastric surgery Ortho: Spine surgery HEENT: Tonsil/Adenoidectomy - Present Medications Home Medications: Ambulatory Orders Medication Instructions Recorded Confirmed Pregabalin [Lyrica] 300 mg PO BID 08/02/21 09/11/21 Metoprolol Succinate [Toprol Xl] 50 mg PO DAILY 09/11/21 09/11/21 Mupirocin 2% Oint [Bactroban 2% 1 applic TOP BID #50 gm 09/15/21 Oint] cephALEXin [Keflex] 500 mg PO Q6H #28 09/15/21 HYDROcod/ACETAM 5/325 [[place] 5/325] 1 - 2 ea PO Q6H PRN #14 tablet 09/28/21 methocarbamoL [Robaxin] 500 mg PO Q6H PRN #20 tablet 09/28/21 - Allergies Allergies/Adverse Reactions: Allergies Allergy/AdvReac Type Severity Reaction Status Date / Time morphine Allergy Intermediate terrors Verified 09/28/21 20:36 - Social History Does the pt smoke?: Yes Smoking Status: Current every day smoker Does the pt drink ETOH?: Yes Does the pt have substance abuse?: No - Immunizations Immunizations are current?: Yes - POLST Patient has POLST: No PD ED PE NORMAL - Vitals Vital signs reviewed: Yes - General General: Alert and oriented X 3, No acute distress - HEENT HEENT: Moist mucous membranes - Neck Neck: Supple, no meningeal sign, No bony TTP - Cardiac Cardiac: RRR - Respiratory Respiratory: No respiratory distress, Clear bilaterally - Abdomen Abdomen: Soft, Non tender, Non distended - Back Back: No spinal TTP (No midline tenderness palpation. No step-off or deformity.) - Derm Derm: Warm and dry - Extremities Extremities: Other (Limited range of motion of the right leg, secondary to pain in the posterior aspect of the right thigh. No bony tenderness. No swelling or bruising. Neurovascular intact.) - Neuro Neuro: Alert and oriented X 3, No motor deficit, No sensory deficit, Other (Normal bilateral lower extremity patellar and ankle jerk reflexes. Normal great toe extension bilaterally. no saddle anesthesia) - Psych Psych: Normal mood, Normal affect Results - Vitals Vitals: Vital Signs - 24 hr 09/28/21 09/28/21 09/28/21 20:30 20:32 21:22 Temperature 36.7 C Heart Rate 110 H 100 97 Respiratory 18 20 20 Rate Blood Pressure 168/113 H 183/119 H O2 Saturation 99 97 100 Oxygen O2 Source Room air - Rads (name of study) Right femur x-ray Radiology: Final report received, EMP read contemporaneously (No acute abnormality), See rad report PD MEDICAL DECISION MAKING - ED course Complexity details: reviewed results, re-evaluated patient, considered differential, d/w patient ED course: 46-year-old male presents to the emergency department with right thigh pain after a fall 2 days ago. Appears to be a muscle strain. No evidence of DVT. No leg swelling. No bruising. Feels better after muscle relaxants and pain medication. Will prescribe pain medication muscle relaxants for home and have him follow-up with his doctor for further care. I am prescribing a short course of short-acting opioid pain medication for this patient. I have reviewed the patients CASINO MANAGER and no concerning findings were noted. I have discussed that the opioids are for short term therapy only, and will not be refilled from the ED. patient counseled regarding signs and symptoms for which I believe and urgent re-evaluation would be necessary. Patient with good understanding of and agreement to plan and is comfortable going home at this time This document was made in part using voice recognition software. While efforts are made to proofread this document, sound alike and grammatical errors may occur. Patient has chronic hypertension. Departure - Departure Disposition: Home, Self Care Clinical Impression: Right leg pain Condition: Good Instructions: ED Strain Muscle Ext Follow-Up: your,doctor in 1 week [Other] Prescriptions: HYDROcod/ACETAM 5/325 [[place] 5/325] 1 - 2 ea PO Q6H PRN #14 tablet PRN Reason: Pain methocarbamoL [Robaxin] 500 mg PO Q6H PRN #20 tablet PRN Reason: muscle spasm Comments: Please follow-up with your doctor for further care. Your x-rays do not show any acute abnormalities today. Your prescriptions were sent to [facility] in [place]. I am prescribing a short course of narcotic pain medication for you. These are potentially dangerous and addictive medications that should be used carefully. These medications may constipate you. Take an myvj-pun-adueqyl stool softener (docusate) twice daily with plenty of water while taking these medications. If you go 24 hours without a bowel movement, take uvwi-zvu-qhafhfg miralax, per package instructions. Do not drink or drive while taking these medications. If you received narcotic or sedating medications while in the emergency department, do not drive for 24 hours. Store this medication in a safe, secure place and out of reach of children. It is a violation of federal law to give or sell this medication to another person or to use in a manner other than prescribed. The ED will not refill narcotic prescriptions, including prescriptions lost or stolen. To dispose of unwanted medications: 1. [facility] at [address] in [place] has a medication drop box. They accept prescription medications (in pill form) Saturday through Saturday 9:00 a.m. to 5:00 p.m. 2. The [facility] [employer] accepts prescription medications (in pill form only) for disposal year round. Call for more information. 3. Contact the [facility] for the next [facility] sponsored prescription drug collection event. , [phone], or [phone];
--- NOTE | 2021-09-28 21:41 | XRAY Report ---
PROCEDURE: Femur 2V RT INDICATIONS: fall, R femur pain TECHNIQUE: 5 views of the femur were acquired. COMPARISON: None. FINDINGS: Bones: No fractures or dislocations. No suspicious bony lesions. Soft tissues: No suspicious soft tissue calcifications or masses. IMPRESSION: Normal right femur Reviewed by: Carlos Taveras on 09/28/2021 9:40 PM PST Approved by: Carlos Taveras on 09/28/2021 9:40 PM [facility] Station ID: [id number]
[2021-09-28 22:09] VITALS: BP 167/134
== END 2021-09-28 22:09 | disposition home or self-care (01) ==
LOC: EDUNIT# → ED 20:28
DX: M79.661 Pain in right lower leg (principal); G89.29 Other chronic pain; F17.200 Nicotine dependence, unspecified, uncomplicated
CPT/HCPCS: 73552; 96372; 99283; A9270

== ENCOUNTER 2021-10-11 20:59 | Outpatient (CLI) | payer MEDICARE, MEDICAID | END 2021-10-11 21:00 | disposition critical access hospital (66) | LOC: EMS 20:59 | DX: L98.9 Disorder of the skin and subcutaneous tissue, unspecified (principal); M79.605 Pain in left leg; R53.1 Weakness | CPT/HCPCS: A0425; A0429 ==

== ENCOUNTER 2021-10-11 21:19 | Emergency (ER) | payer MEDICARE, MEDICAID ==
[2021-10-11] MEDS ORDERED: ACETAMINOPHEN 325 MG TABLET PO STA (22:03)
--- NOTE | 2021-10-11 22:05 | ED Physician Documentation ---
PD HPI SKIN - Stated complaint Stated Complaint: LEFT KNEE/FOOT MRSA - Chief complaint Chief Complaint: Wound - History obtained from History obtained from: Patient - Additional information Additional information: 46-year-old man with past medical history of ( extremity wounds to the left knee and foot, previously complicated by MRSA infection, presents with request for pain control and debridement of his wounds. Denies fever, swelling, or streaking erythema. denies purulent discharge Review of Systems Constitutional: denies: Fever, Chills Skin: reports: Lesions Musculoskeletal: reports: Extremity pain PD PAST MEDICAL HISTORY - Past Medical History Past Medical History: Yes Cardiovascular: Murmur, Other Respiratory: Asthma Neuro: None Endocrine/Autoimmune: None GI: Chronic constipation : Incontinence HEENT: None Psych: Depression Musculoskeletal: Chronic back pain, Other Derm: Other - Past Surgical History Past Surgical History: Yes General: Gastric surgery Ortho: Spine surgery HEENT: Tonsil/Adenoidectomy - Present Medications Home Medications: Ambulatory Orders Medication Instructions Recorded Confirmed Pregabalin [Lyrica] 300 mg PO BID 08/02/21 10/11/21 Metoprolol Succinate [Toprol Xl] 50 mg PO DAILY 09/11/21 10/11/21 Mupirocin 2% Oint [Bactroban 2% 1 applic TOP BID #50 gm 09/15/21 10/11/21 Oint] cephALEXin [Keflex] 500 mg PO Q6H #28 09/15/21 10/11/21 HYDROcod/ACETAM 5/325 [[place] 5/325] 1 - 2 ea PO Q6H PRN #14 tablet 09/28/21 10/11/21 methocarbamoL [Robaxin] 500 mg PO Q6H PRN #20 tablet 09/28/21 10/11/21 - Allergies Allergies/Adverse Reactions: Allergies Allergy/AdvReac Type Severity Reaction Status Date / Time morphine Allergy Intermediate terrors Verified 10/11/21 21:24 gabapentin Allergy Unknown Verified 10/11/21 21:24 - Social History Does the pt smoke?: Yes Smoking Status: Current every day smoker Does the pt drink ETOH?: Yes Does the pt have substance abuse?: No - Immunizations Immunizations are current?: Yes - POLST Patient has POLST: No PD ED PE NORMAL - Vitals Vital signs reviewed: Yes - General General: Alert and oriented X 3, No acute distress, Well developed/nourished - HEENT HEENT: Atraumatic, PERRL, EOMI - Derm Derm: Normal color, Warm and dry, Other (4cm chronic appearing wound to L knee with granulation tissue. 2cm chronic appearing wound to L foot with granulation tissue. both sites nonerythematous, without swelling or discharge.) - Neuro Neuro: Alert and oriented X 3 - Psych Psych: Normal mood, Normal affect Results - Vitals Vitals: Vital Signs - 24 hr 10/11/21 10/11/21 21:24 22:24 Temperature 36.7 C Heart Rate 110 H 99 Respiratory 16 16 Rate Blood Pressure 159/96 H 135/89 H O2 Saturation 98 97 Oxygen O2 Source Room air - Labs Labs: Laboratory Tests 10/11/21 10/11/21 22:05 22:05 WBC 7.5 RBC 4.67 L Hgb 13.1 L Hct 41.6 L MCV 89.1 MCH 28.1 MCHC 31.5 L RDW 15.2 H Plt Count 199 MPV 12.5 H Neut # (Auto) 6.2 Lymph # (Auto) 0.6 L [place] # (Auto) 0.6 Eos # (Auto) 0.1 Baso # (Auto) 0.0 Absolute Nucleated RBC 0.00 Nucleated RBC % 0.0 Sodium 138 Potassium 3.4 L Chloride 99 L Carbon Dioxide 30 Anion Gap 9.0 BUN 23 H Creatinine 0.8 Estimated GFR (MDRD) 105 Glucose 115 H Calcium 9.1 Total Bilirubin 0.8 AST 70 H ALT 38 Alkaline Phosphatase 76 Total Protein 7.2 Albumin 3.7 Globulin 3.5 Albumin/Globulin Ratio 1.1 PD MEDICAL DECISION MAKING - ED course ED course: Per patient's CATHRYN, encouraged use of PCP rather than ED as first line for his chronic issues. Patient states he has appointment with either wound clinic or pain management next month (seemed unsure of which). Discussed that I can give him tylenol but no narcotic pain medication. Wounds were cleaned and dressed. return precautions given. Plan to f/u with JEFFREY García. Departure - Departure Disposition: 01 Home, Self Care Clinical Impression: Chronic wound of extremity Condition: Good Instructions: ED Wound Care Comments: You were seen in the emergency department for wound check. It does not look infected and you should follow-up with your primary care provider for referral to wound clinic. Return to the emergency department if you have any new or worsening symptoms or concerns.
[2021-10-11 22:12] LABS: BASOPHILS % (AUTO) 0.5 %; EOSINOPHILS # (AUTO) 0.1 10^3/uL (0.0-0.7); EOSINOPHILS % (AUTO) 1.2 %; HCT - HEMATOCRIT 41.6 % (42.0-52.0); HGB - HEMOGLOBIN 13.1 g/dL (14.0-18.0); LYMPHOCYTES # (AUTO) 0.6 10^3/uL (1.5-3.5); LYMPHOCYTES % (AUTO) 7.6 %; MEAN CORPUSCULAR HEMOGLOBIN 28.1 pg (27.0-31.0); MEAN CORPUSCULAR HGB CONC 31.5 g/dL (32.0-36.0); MEAN CORPUSCULAR VOLUME 89.1 fL (80.0-94.0); MEAN PLATELET VOLUME 12.5 fL (7.4-11.4); MONOCYTES # (AUTO) 0.6 10^3/uL (0.0-1.0); MONOCYTES % (AUTO) 8.3 %; NEUTROPHILS # (AUTO) 6.2 10^3/uL (1.5-6.6); NEUTROPHILS % (AUTO) 82.1 %; PLT - PLATELET COUNT 199 10^3/uL (130-450); RED BLOOD COUNT 4.67 10^6/uL (4.70-6.10); RED CELL DISTRIBUTION WIDTH 15.2 % (12.0-15.0); WHITE BLOOD COUNT 7.5 x10^3/uL (4.8-10.8)
[2021-10-11 22:32] LABS: ALBUMIN 3.7 g/dL (3.2-5.5); ALBUMIN/GLOBULIN RATIO 1.1 (1.0-2.2); BILIRUBIN,TOTAL 0.8 mg/dL (0.2-1.0); CALCIUM 9.1 mg/dL (8.5-10.3); CREATININE 0.8 mg/dL (0.6-1.2); POTASSIUM 3.4 mmol/L (3.5-5.0); TOTAL PROTEIN 7.2 g/dL (6.7-8.2)
[2021-10-11 23:39] VITALS: BP 138/89
== END 2021-10-11 23:37 | disposition home or self-care (01) ==
LOC: EDUNIT# → ED 21:19
DX: S99.922D Unspecified injury of left foot, subsequent encounter (principal); X58.XXXD Exposure to other specified factors, subsequent encounter; F17.200 Nicotine dependence, unspecified, uncomplicated
CPT/HCPCS: 36415; 80053; 85025; 99282; 99283; A9270

== ENCOUNTER 2021-10-15 06:22 | Outpatient (CLI) | payer MEDICARE, MEDICAID | END 2021-10-15 06:23 | disposition short-term general hospital (02) | LOC: EMS 06:22 | DX: L98.9 Disorder of the skin and subcutaneous tissue, unspecified (principal); Z74.01 Bed confinement status; R15.9 Full incontinence of feces; R32 Unspecified urinary incontinence; G82.20 Paraplegia, unspecified | CPT/HCPCS: A0425; A0429 ==

== ENCOUNTER 2022-05-07 02:47 | Outpatient (CLI) | payer MEDICARE, MEDICAID | END 2022-05-07 02:48 | disposition left against medical advice (07) | LOC: EMS 02:47 | DX: Z03.89 Encounter for observation for other suspected diseases and conditions ruled out (principal) ==

== ENCOUNTER 2022-05-14 18:07 | Outpatient (CLI) | payer MEDICARE, MEDICAID | END 2022-05-14 18:08 | disposition EMS.NT | LOC: EMS 18:07 | DX: Z03.89 Encounter for observation for other suspected diseases and conditions ruled out (principal) ==

== ENCOUNTER 2022-05-24 08:02 | Outpatient (CLI) | payer MEDICARE, MEDICAID | END 2022-05-24 08:03 | disposition left against medical advice (07) | LOC: EMS 08:02 | DX: R31.9 Hematuria, unspecified (principal) ==

== ENCOUNTER 2022-05-25 15:35 | Outpatient (CLI) | payer MEDICARE, MEDICAID | END 2022-05-25 15:36 | disposition critical access hospital (66) | LOC: EMS 15:35 | DX: R31.9 Hematuria, unspecified (principal); M54.50 Low back pain, unspecified; G82.20 Paraplegia, unspecified; Z74.8 Other problems related to care provider dependency; Z59.89 Other problems related to housing and economic circumstances | CPT/HCPCS: A0425; A0429 ==

== ENCOUNTER 2022-05-25 15:57 | Inpatient (IN) | payer MEDICARE, MEDICAID ==
--- NOTE | 2022-05-25 16:05 | ED Physician Documentation ---
PD HPI ABD PAIN - Stated complaint Stated Complaint: CATHETER ISSUE - History obtained from History obtained from: Patient, EMS - Additional information Additional information: 47-year-old gentleman with both the thoracic and lumbar schwannoma who now is paraplegic. Has an indwelling Bowling catheter related to neurogenic bladder. The current catheter has been in for about a month. The last 5 days or so has had blood and dark foul-smelling urine in the bag and has low back pain. History also from EMS, EMS has been out to his house several times in the last week. An APS report was started yesterday as his living situation is not good with nobody caring for him, he reportedly had an appointment today for what sounds like lithotripsy may be at [facility] in [place] which he missed because there is no transportation. Review of Systems Unable to obtain: Confused Constitutional: denies: Fever, Chills Throat: reports: Reviewed and negative Cardiac: reports: Reviewed and negative Respiratory: reports: Reviewed and negative PD PAST MEDICAL HISTORY - Past Medical History Cardiovascular: Murmur, Other Respiratory: Asthma Neuro: None Endocrine/Autoimmune: None GI: Chronic constipation : Incontinence HEENT: None Psych: Depression Musculoskeletal: Chronic back pain, Other Derm: Other - Past Surgical History Past Surgical History: Yes General: Gastric surgery Ortho: Spine surgery HEENT: Tonsil/Adenoidectomy - Present Medications Home Medications: Ambulatory Orders Medication Instructions Recorded Confirmed Pregabalin [Lyrica] 300 mg PO BID 08/02/21 10/11/21 Metoprolol Succinate [Toprol Xl] 50 mg PO DAILY 09/11/21 10/11/21 Mupirocin 2% Oint [Bactroban 2% 1 applic TOP BID #50 gm 09/15/21 10/11/21 Oint] cephALEXin [Keflex] 500 mg PO Q6H #28 09/15/21 10/11/21 HYDROcod/ACETAM 5/325 [[place] 5/325] 1 - 2 ea PO Q6H PRN #14 tablet 09/28/21 10/11/21 methocarbamoL [Robaxin] 500 mg PO Q6H PRN #20 tablet 09/28/21 10/11/21 - Allergies Allergies/Adverse Reactions: Allergies Allergy/AdvReac Type Severity Reaction Status Date / Time morphine Allergy Intermediate terrors Verified 05/25/22 16:10 gabapentin Allergy Unknown Verified 05/25/22 16:10 ibuprofen Allergy Unknown Verified 05/25/22 16:10 - Social History Does the pt smoke?: Yes Smoking Status: Current every day smoker Does the pt drink ETOH?: Yes Does the pt have substance abuse?: No - Immunizations Immunizations are current?: Yes - POLST Patient has POLST: No PD ED PE NORMAL - Vitals Vital signs reviewed: Yes - General General: Other (Paraplegic gentleman laying in bed in no distress, he is a despondent historian. He is disheveled.) - HEENT HEENT: PERRL - Neck Neck: Supple, no meningeal sign, No bony TTP - Cardiac Cardiac: RRR, No murmur - Respiratory Respiratory: No respiratory distress, Clear bilaterally - Abdomen Abdomen: Normal bowel sounds, Soft, Non tender - Male Male : Other (Urinary catheter in the bladder, it is caked with debris both inside and out, foul-smelling and leaking.) - Back Back: No CVA TTP, No spinal TTP - Derm Derm: Other (There is a grade 3 pressure ulcer on the inferolateral left buttock with an appropriate dressing in place no evidence of infection.) - Extremities Extremities: Other (He has sores and wounds on both legs, none of which appear infected.) - Neuro Neuro: Alert and oriented X 3, Normal speech Results - Vitals Vitals: Vital Signs - 24 hr 05/25/22 05/25/22 05/25/22 16:03 16:36 20:31 Temperature 36.6 C Heart Rate 70 70 63 Respiratory 16 19 Rate Blood Pressure 173/115 H 164/102 H 161/107 H O2 Saturation 100 100 98 Oxygen O2 Source Room air - Labs Labs: Laboratory Tests 05/25/22 05/25/22 05/25/22 17:17 17:17 17:26 WBC 9.4 RBC 5.23 Hgb 14.5 Hct 44.9 MCV 85.9 MCH 27.7 MCHC 32.3 RDW 17.7 H Plt Count 261 MPV 12.0 H Neut # (Auto) 7.3 H Lymph # (Auto) 1.2 L [place] # (Auto) 0.7 Eos # (Auto) 0.2 Baso # (Auto) 0.0 Absolute Nucleated RBC 0.00 Nucleated RBC % 0.0 Sodium 140 Potassium 3.4 L Chloride 102 Carbon Dioxide 27 Anion Gap 11.0 BUN 28 H Creatinine 1.0 Estimated GFR (MDRD) 81 L Glucose 109 H Lactic Acid Calcium 9.4 Urine Color DARK YELLOW Urine Clarity CLOUDY Urine pH 6.5 Ur Specific [place] >=1.030 H Urine Protein >=300 H Urine Glucose (UA) NEGATIVE Urine Ketones 15 H Urine Occult Blood LARGE H Urine Nitrite POSITIVE H Urine Bilirubin NEGATIVE Urine Urobilinogen 2 H Ur Leukocyte Esterase MODERATE H Urine RBC TNTC H Urine WBC 11-25 H Ur Squamous Epith Cells NONE SEEN Urine Bacteria Many H Ur Microscopic Review INDICATED Urine Culture Comments INDICATED Urine Opiates Screen Ur Oxycodone Screen Urine Methadone Screen Ur Propoxyphene Screen Ur Barbiturates Screen Ur Tricyclics Screen Ur Phencyclidine Scrn Ur Amphetamine Screen U Methamphetamines Scrn U Benzodiazepines Scrn Urine Cocaine Screen U Cannabinoids Screen 05/25/22 05/25/22 18:59 19:11 WBC RBC Hgb Hct MCV MCH MCHC RDW Plt Count MPV Neut # (Auto) Lymph # (Auto) [place] # (Auto) Eos # (Auto) Baso # (Auto) Absolute Nucleated RBC Nucleated RBC % Sodium Potassium Chloride Carbon Dioxide Anion Gap BUN Creatinine Estimated GFR (MDRD) Glucose Lactic Acid 1.0 Calcium Urine Color Urine Clarity Urine pH Ur Specific [place] Urine Protein Urine Glucose (UA) Urine Ketones Urine Occult Blood Urine Nitrite Urine Bilirubin Urine Urobilinogen Ur Leukocyte Esterase Urine RBC Urine WBC Ur Squamous Epith Cells Urine Bacteria Ur Microscopic Review Urine Culture Comments Urine Opiates Screen NEGATIVE Ur Oxycodone Screen POSITIVE H Urine Methadone Screen NEGATIVE Ur Propoxyphene Screen NEGATIVE Ur Barbiturates Screen NEGATIVE Ur Tricyclics Screen NEGATIVE Ur Phencyclidine Scrn NEGATIVE Ur Amphetamine Screen NEGATIVE U Methamphetamines Scrn NEGATIVE U Benzodiazepines Scrn NEGATIVE Urine Cocaine Screen NEGATIVE U Cannabinoids Screen NEGATIVE - Rads (name of study) CT KUB Radiology: EMP read contemporaneously (1. Mild right hydronephrosis. Small foci of gas within the right renal pelvis. If no history of recent procedure this could be seen in the setting of emphysematous pyelitis. Mild stranding about the proximal ureters. Pyelonephritis is difficult to exclude on this noncontrast exam. Low suspicion for ) PD MEDICAL DECISION MAKING - ED course ED course: 47-year-old gentleman presents with some encephalopathy, foul-smelling urine in his catheter, a gluteal pressure ulcer, and is poorly kempt. Blood work shows mild elevation of the BUN, no significant leukocytosis, CT results as shown with worry for emphysematous pyelitis. Spoke with , confused since Saturday. Ureteral stents have been in about 1 year. Was supposed to have stent replacement today at [facility]. He was in an [facility] and came home 04/21/22. He is out of pain pills-overtaking oxycodone and gabapentin, rxs filled ~05/09/22 and empty. I spoke with Dr. Caballero (?sp), urology for [facility]. She reviewed the records. She did not feel that the air in the collecting system was too concerning even in light of the read of mild hydronephrosis. She does agree with IV antibiotics and expectant management but does not need transfer for intervention. That said he does need outpatient follow-up as he missed his appointment and the stents do need to be replaced. Here he was given IV Rocephin after blood cultures and his Bowling was replaced. I updated the by phone and she was happy with the plan. Telehealth consultation placed approximately 815 p.m. I spoke with Dr. Giraldo for admission at 8:41 PM. Departure - Departure Disposition: 66 [facility] DC/Xfronda Clinical Impression: Emphysematous pyelitis, Delirium, Pressure ulcer Condition: Serious
[2022-05-25] MEDS ORDERED: oxyCODONE 5 MG TABLET PO STA ×2 (16:07→20:56)
[2022-05-25 17:21] LABS: BASOPHILS % (AUTO) 0.4 %; EOSINOPHILS # (AUTO) 0.2 10^3/uL (0.0-0.7); EOSINOPHILS % (AUTO) 1.6 %; HCT - HEMATOCRIT 44.9 % (42.0-52.0); HGB - HEMOGLOBIN 14.5 g/dL (14.0-18.0); LYMPHOCYTES # (AUTO) 1.2 10^3/uL (1.5-3.5); LYMPHOCYTES % (AUTO) 12.5 %; MEAN CORPUSCULAR HEMOGLOBIN 27.7 pg (27.0-31.0); MEAN CORPUSCULAR HGB CONC 32.3 g/dL (32.0-36.0); MEAN CORPUSCULAR VOLUME 85.9 fL (80.0-94.0); MONOCYTES # (AUTO) 0.7 10^3/uL (0.0-1.0); NEUTROPHILS # (AUTO) 7.3 10^3/uL (1.5-6.6); NEUTROPHILS % (AUTO) 78.3 %; PLT - PLATELET COUNT 261 10^3/uL (130-450); RED BLOOD COUNT 5.23 10^6/uL (4.70-6.10); RED CELL DISTRIBUTION WIDTH 17.7 % (12.0-15.0); WHITE BLOOD COUNT 9.4 x10^3/uL (4.8-10.8)
[2022-05-25 17:30] LABS: CALCIUM 9.4 mg/dL (8.5-10.3); POTASSIUM 3.4 mmol/L (3.5-5.0)
[2022-05-25 17:36] LABS: GLUCOSE, URINE (UA) NEGATIVE (NEGATIVE); KETONES,URINE (UA) 15 mg/dL (NEGATIVE); LEUKOCYTE ESTERASE, URINE MODERATE (NEGATIVE); NITRITE,URINE POSITIVE (NEGATIVE); OCCULT BLOOD,URINE LARGE (NEGATIVE); PH,URINE 6.5 PH (5.0-7.5); PROTEIN,URINE >=300 mg/dL (NEGATIVE); UROBILINOGEN,URINE 2 E.U./dL (NORMAL)
--- NOTE | 2022-05-25 17:39 | CT Report ---
PROCEDURE: Abdomen/Pelvis WO INDICATIONS: abd pain TECHNIQUE: Noncontrast 5 mm thick sections acquired from the diaphragms to the symphysis. 5 mm coronal and sagi ttal reformats were then performed. For radiation dose reduction, the following was used: automated exposure control, adjustment of mA and/or kV according to patient size. COMPARISON: CT abdomen pelvis 01/30/2021, CT abdomen pelvis without contrast 04/13/2019. FINDINGS: Image quality: Excellent. Evaluation of the solid parenchymal organs is limited without IV contrast. ABDOMEN: Lung bases: No pleural effusion. Small low-density subpleural nodule at the right lung base, (3/16), unchanged since 2019 suggesting a benign etiology. Heart size is normal. Solid organs: Liver and spleen are normal in size. Left lobe calcified granuloma. Gallbladder is no t distended. Pancreas is normal in contours. Small calcification in the region of the uncinate proce ss is unchanged. No adrenal nodules. Kidneys are normal in size. Mild right hydronephrosis. Small foci of gas in the right kidney collecti ng system. Bilateral double-J ureteral stents extend from the renal pelvis CTs to the urinary bladder . The left double-J ureteral stent is noted in the interval compared to last year. No more recent tor ging is available for comparison. There is stranding about the proximal ureters. No hydroureter. Smal l nonobstructing stones in the right kidney, appear new. Punctate calcification in the inferior pole the left kidney, appears new. Peritoneum and bowel: Unenhanced bowel loops demonstrate normal wall thickness and caliber. No free fluid or air. Nodes and vessels: No retroperitoneal or mesenteric adenopathy by size criteria. Aorta and inferior vena cava are normal in caliber. Miscellaneous: No ventral hernias. Ventral abdominal wall scar. PELVIS: Genitourinary: Bladder is decompressed with Bowling catheter. Likely tiny focus of gas in the urinary b ladder. Miscellaneous: No inguinal hernias or adenopathy. Bones: No suspicious bony lesions. Minimal retrolisthesis of L5 on S1. No vertebral body compressio n fractures. IMPRESSION: 1. Mild right hydronephrosis. Small foci of gas within the right renal pelvis. Recommend clinical cor relation. If recent stent exchanged this could be postsurgical in nature. However, if no history of r ecent procedure this could be seen in the setting of emphysematous pyelitis. Mild stranding about the proximal ureters. Pyelonephritis is difficult to exclude on this noncontrast exam. Low suspicion for emphysematous pyelonephritis. 2. Bilateral double-J ureteral stents. Bladder is decompressed with Bowling catheter. 3. Small nonobstructing kidney stones. 4. No free fluid in the abdomen or pelvis. Results were communicated to Dr. Dr. Esteban at 05/25/2022 5:34 PM PDT. Reviewed by: Zaid Medel MD on 05/25/2022 5:38 PM PDT Approved by: Zaid Medel MD on 05/25/2022 5:38 PM PDT Station ID: [id number]
[2022-05-25 17:41] LABS: BILIRUBIN,URINE NEGATIVE (NEGATIVE); CLARITY,URINE CLOUDY (CLEAR); ICTOTEST,URINE NEGATIVE
[2022-05-25 17:50] LABS: BACTERIA,URINE Many /HPF (None Seen); RBC,URINE TNTC /HPF (0-5); SQUAMOUS EPITHELIAL CELL,UR NONE SEEN (<= Few)
[2022-05-25] MEDS ORDERED: cefTRIAXone 2 GM in SODIUM CHLORIDE 0.9% MINIBAG 100 ML IV STA (17:59)
[2022-05-25 19:07] LABS: MUDS CUTOFF CONCENTRATIONS CUTOFF CONC BELOW:
--- NOTE | 2022-05-25 19:09 | CT Report ---
PROCEDURE: HEAD WO INDICATIONS: altered TECHNIQUE: Noncontrast 4.5 mm thick angled axial sections acquired from the foramen magnum to the vertex. For r adiation dose reduction, the following was used: automated exposure control, adjustment of mA and/or kV according to patient size. COMPARISON: Head CT 09/11/2021. FINDINGS: Image quality: Excellent. CSF spaces: Basal cisterns are patent. No extra-axial fluid collections. Ventricles are normal in size and shape. Brain: No midline shift. No intracranial masses or hemorrhage. Amaral-white matter interface is norm al. Skull and face: Calvarium and visualized facial bones are intact, without suspicious lesions. Sinuses: Visualized sinuses and mastoids are clear. IMPRESSION: No acute intracranial abnormality. Reviewed by: Zaid Medel MD on 05/25/2022 7:08 PM PDT Approved by: Zaid Medel MD on 05/25/2022 7:08 PM PDT Station ID: [id number]
[2022-05-25 19:31] LABS: AMPHETAMINE SCREEN,URINE NEGATIVE (NEGATIVE); BARBITURATE SCREEN,UR NEGATIVE (NEGATIVE); BENZODIAZEPINES SCREEN, URINE NEGATIVE (NEGATIVE); COCAINE SCREEN URINE NEGATIVE (NEGATIVE); METHADONE SCREEN, URINE NEGATIVE (NEGATIVE); METHAMPHETAMINES SCREEN, URINE NEGATIVE (NEGATIVE); OPIATE SCREEN, URINE NEGATIVE (NEGATIVE); OXYCODONE SCREEN, URINE POSITIVE (NEGATIVE); PROPOXYPHENE SCREEN, URINE NEGATIVE (NEGATIVE); THC CANNABINOID SCREEN, URINE NEGATIVE (NEGATIVE); TRICYCLIC ANTIDEPRESSANT,URINE NEGATIVE (NEGATIVE)
[2022-05-25] MEDS ORDERED: ONDANSETRON 4 MG/2 ML VIAL IVP PRN (20:55)
[2022-05-25] MEDS ORDERED: SODIUM CHLORIDE FLUSH 0.9% 10 ML SYRINGE IVP PRN (20:55)
[2022-05-25] MEDS ORDERED: ACETAMINOPHEN 500 MG TABLET PO STA (20:56)
--- NOTE | 2022-05-25 21:15 | HISTORY & PHYSICAL EXAMINATION ---
Chief Complaint - Chief Complaint Chief Complaint: AMS History of Present Illness - History of Present Illness HPI Comment/Other: 47 y old male with PMH thoracic and lumbar Schwanomma , Paraplegia, Renal calculi, B/L Ureteral stents, Neurogenic bladder s/p Chronic indewelling Glover BIBA due toworsening confusion and foul swelling urine for last 4-5 days. Pt is confused so most of history is from ER physican and record. Apparently patient was supposed to follow up with Urology but he missed appointments. No H/O fever. Pt denies PAREKH, chest pain, SOB, nausea, vomiting or abdominal pain. On presentaion, pt was afebrile. BP accelerated. Labs showed nornal WAB, K 3.4 Lactic acid normal UA showed positive leukocytes, RBC TNTC and WBC 15-20 CT head showed no acute abnormalities CT abdomen/pelvis showed B/L non-obstructing calculi, b/l ureteral stents,glover and mild right hydronephrosis. As per ER physician, Dr Aguilar , he has discussed with Urologist therapeutic recreation assistant who suggested that patient does not need to be transferred and recommened IV ABX . Pt is being admittted duo to AMS, Confusion, acute encephalopathy, Acute pyelonephritis, hypokalemia, decubitus ulcer in buttock area History - Past Medical History Cardiovascular: reports: Murmur, Other Respiratory: reports: Asthma Neuro: reports: None Endocrine/Autoimmune: reports: None GI: reports: Chronic constipation : reports: Incontinence HEENT: reports: None Psych: reports: Depression Musculoskeletal: reports: Chronic back pain, Other Derm: reports: Other MRSA Hx?: Yes - Past Surgical History General: reports: Gastric surgery Ortho: reports: Spine surgery HEENT: reports: Tonsil/Adenoidectomy - POLST Patient has POLST: No Meds/Allgy - Home Medications Home Medications: Ambulatory Orders Medication Instructions Recorded Confirmed Pregabalin [Lyrica] 300 mg PO BID 08/02/21 10/11/21 Metoprolol Succinate [Toprol Xl] 50 mg PO DAILY 09/11/21 10/11/21 Mupirocin 2% Oint [Bactroban 2% 1 applic TOP BID #50 gm 09/15/21 10/11/21 Oint] cephALEXin [Keflex] 500 mg PO Q6H #28 09/15/21 10/11/21 HYDROcod/ACETAM 5/325 [[place] 5/325] 1 - 2 ea PO Q6H PRN #14 tablet 09/28/21 10/11/21 methocarbamoL [Robaxin] 500 mg PO Q6H PRN #20 tablet 09/28/21 10/11/21 - Allergies Allergies/Adverse Reactions: Allergies Allergy/AdvReac Type Severity Reaction Status Date / Time morphine Allergy Intermediate terrors Verified 05/25/22 16:10 gabapentin Allergy Unknown Verified 05/25/22 16:10 ibuprofen Allergy Unknown Verified 05/25/22 16:10 Review of Systems - Constitutional Constitutional: reports: Weakness (10 points systems were reviewed and were negative except mentioned in HPI) Exam - Vital Signs Vital Signs: Vital Signs x48h Temp Pulse Resp BP Pulse Ox 05/25/22 20:31 36.6 C 63 161/107 H 98 05/25/22 16:36 70 19 164/102 H 100 05/25/22 16:03 36.6 C 70 16 173/115 H 100 - Physical Exam General Appearance: positive: No acute distress, Alert Eyes Bilateral: positive: PERRL ENT: positive: ENT inspection nml Neck: positive: Nml inspection Respiratory: positive: Chest non-tender, Breath sounds nml Cardiovascular: positive: Regular rate & rhythm, No murmur Abdomen: positive: Non-tender, Nml bowel sounds, No distention Skin: positive: Decubitus Extremities: positive: No pedal edema Neurologic/Psychiatric: positive: Disoriented to place, Disoriented to time, Weakness, Other (Paralegia Wound in left buttock area. POA) Conclusion/Plan - Lab Results Fish Bones: 05/25/22 17:17 05/25/22 17:17 - Other Other Results/Comments: A: AMS Acute encephalopathy Acute pyelonephritis Hypokalemia Non-obstructing b/l renal calculi Mild right hydronephrosis B/L ureteral stones Indwelling glover catheter, Chronic Paraplegia Wound in left buttock area HTN Plan; Admit in med surg NS @ 100 cc/h Monitor mental staus Avoid benzo and opiates Follow cultures Start IV rocephin Replace k and monitor Follow up with Urology as outpatient Wound consult Start vanco per pharmacy Cont toprol xl 50 mg po qd Supportive care DVT prophylaxic: SCD Full code Pt will be admitted as inpatient as more than 2 midnight stay is expected
[2022-05-25] MEDS ORDERED: VANCOMYCIN 1 GM VIAL ONE (21:33)
[2022-05-25 21:35] LABS: B. PARAPERTUSSIS- RESP PCR PAN NOT DETECTED; B. PERTUSSIS- RESP PCR PANEL NOT DETECTED; C. PNEUMONIAE- RESP PCR PANEL NOT DETECTED; CORONAVIRUS 229E-RESP PCR NOT DETECTED; CORONAVIRUS HKU1-RESP PCR NOT DETECTED; CORONAVIRUS NL63-RESP PCR NOT DETECTED; CORONAVIRUS OC43-RESP PCR NOT DETECTED; HUMAN METAPNEUMOVIRUS NOT DETECTED; INFLUENZA A- RESP PCR PANEL NOT DETECTED; INFLUENZA B - RESP PCR PANEL NOT DETECTED; M. PNEUMONIAE- RESP PCR PANEL NOT DETECTED; PARAINFLUENZA VIRUS 1 NOT DETECTED; PARAINFLUENZA VIRUS 2 NOT DETECTED; PARAINFLUENZA VIRUS 3 NOT DETECTED; PARAINFLUENZA VIRUS 4 NOT DETECTED; RHINOVIRUS/ENTEROVIRUS NOT DETECTED; RSV- RESP PCR PANEL NOT DETECTED; SARS-CoV-2 -RESP PCR PANEL NOT DETECTED
[2022-05-25] MEDS ORDERED: VANCOMYCIN INJ 1.5 GM in SODIUM CHLORIDE 0.9% 500 ML IV ONE (22:00)
[2022-05-26] MEDS: SODIUM CHLORIDE 0.9% 1,000 ML IV SCH ×3 (00:33→20:43)
[2022-05-26] MEDS: SODIUM CHLORIDE FLUSH 0.9% 10 ML SYRINGE IVP SCH ×3 (00:34→16:36)
[2022-05-26] MEDS: ACETAMINOPHEN 325 MG TABLET PO PRN (05:48)
--- NOTE | 2022-05-26 07:18 | PHARMACY PROGRESS NOTE ---
- Therapy Status Vancomycin regimen day #: 2 Therapy status: Awaiting steady state Basis for treatment: Empirical Treatment indication: Wounds Trough goal: 15-20 Concurrent antibiotics: Ceftriaxone - MELODY Risk Risk level for Acute Kidney Injury: Moderate Acute Kidney Injury risk factors: Goal trough >15, Chronic baseline hypertension - Monitoring and Recommendation Clinical response to treatment: I&O Previous 24 hours 05/24/22 05/25/22 05/26/22 23:59 23:59 23:59 Intake Total 100 550 Output Total 475 Balance 100 75 Lab Results 05/25/22 17:17 BUN 28 H Creatinine 1.0 Estimated GFR (MDRD) 81 L Monitoring plan: Daily serum creatinine, Suggest ongoing fluid replacement Next trough due prior to maintenance dose #: 5 Next trough due (date/time): 05/28/22 @0930 Areas for additional monitoring: IV to PO when appropriate, Therapy de- escalation based on culture results, C. difficile infection risk reduction Pharmacy recommendation: Continue current regime
--- NOTE | 2022-05-26 07:46 | PHARMACY PROGRESS NOTE ---
- Best Possible Medication History Admit Date and Time: 05/25/222054 Processed by: Pharmacy Medication History completed: Yes Patient Interview: Pt unable to participate Secondary Source(s): Physician records, Pharmacy records, Insurance records As the person ultimately responsible for medication therapy, providers are able to order a medication from an existing home medication list in [facility] via the "Reconcile Routine" prior to Confirmation of that medication by account support associate. Such practice is discouraged except when the physician, in their clinical judgment, deems that a medical need exists for a medication without regard to previous use.
[2022-05-26] MEDS ORDERED: hydrALAZINE 10 MG TABLET PO ONE (09:18)
[2022-05-26] MEDS: METOPROLOL SUCCINATE 50 MG TABLET PO SCH (09:21)
[2022-05-26] MEDS: oxyCODONE 5 MG TABLET PO PRN ×2 (09:22→14:37)
--- NOTE | 2022-05-26 09:22 | PROVIDER PROGRESS NOTE ---
Assessment/Plan - Problem List (1) Emphysematous pyelitis Assessment/Plan: Small amounts of air was seen near the R renal pelvis,consistent with emphysematous pyelitis. Stranding of bilateral proximal ureters was seen by CT abdomen pelvis. Continue with IV ceftriaxone. Await urine culture results and sensitivities to tailor antibiotics. Will plan a 14-day total course of antibiotics. (2) Right hydronephrosis Assessment/plan: Noted on imaging CT. (3) Bilateral ureteral calculi Assessment/plan: Noted on imaging CT abdomen pelvis and these are stable and chronic (4) Hypokalemia Assessment/plan: Likely related to poor p.o. intake over the 4 to 5 days that he was somnolent. Will replace. Follow BMP daily (5) Paraplegia Assessment/plan: He has weakness from the lower waist down he says. 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 He does get muscle spasms and his home meds will be reordered (6) Chronic indwelling glover catheter Assessment/plan: Chronic, due to neurogenic bladder Continue with Glover care. Will assure that a new Glover was re-inserted, when he presented for this admission (7) Sacral decubitus ulcer Assessment/plan: This is a chronic problem, suspect he is supine in bed alot. He says his changes the dressing daily, and he gets put in a chair with assistance, he reported to me. Will assess, as it could have been another source of infection and cause AMS. Wound consult has been ordered. PT has been ordered to assess how he gets OOB, and to do this here. (8) HTN Assessment/plan: His BP has been very elevated since presentation. His medication list shows that he takes beta-marty Metoprolol tartrate has been changed to succinate for longer-term effect. Will also add hydralazine since blood pressure is poorly controlled (9) AMS Assessment/plan: Resolved. Pt is awake, communicating and back to his baseline this morning. - Current Meds Current Meds: Current Medications Generic Name Dose Route Start Last Admin Trade Name Freq PRN Reason Stop Dose Admin Acetaminophen 650 mg 05/26/22 05:38 05/26/22 05:48 Acetaminophen 325 Mg Tablet PO 650 mg Q6HR PRN Administration PAIN Sodium Chloride 1,000 mls @ 100 mls/hr 05/25/22 21:00 05/26/22 00:33 Normal Saline 0.9% IV 100 mls/hr .Q10H JOB Administration Sodium Chloride 10 ml 05/26/22 01:00 05/26/22 00:34 Sodium Chloride Flush 0.9% 10 Ml Syringe IVP 10 ml 0100,0900,1700 JOB Administration - Lab Result Fish Bone Diagrams: 05/26/22 09:24 05/26/22 09:24 - Additional Planning My Orders: My Active Orders 05/26/22 07:37 oxyCODONE [Roxicodone] 5 mg PO Q6HR PRN 05/26/22 09:14 CMP [COMPREHENSIVE METABOLIC PANEL] [CHEM] Urgent MAGNESIUM [CHEM] Urgent 05/26/22 09:15 CBC - COMP BLD CT W/AUTO DIFF [HEME] Urgent 05/26/22 09:18 hydrALAZINE [Apresoline] 10 mg PO ONCE ONE 05/26/22 12:00 Baclofen [Lioresal] 10 mg PO TID 05/26/22 21:00 Pregabalin [Lyrica] 300 mg PO BID 05/27/22 05:00 BMP - BASIC METABOLIC PANEL [CHEM] DAILYLAB CBC - COMP BLD CT W/AUTO DIFF [HEME] DAILYLAB MAGNESIUM [CHEM] DAILYLAB 05/27/22 09:00 Duloxetine HCl [Cymbalta] 60 mg PO DAILY 05/28/22 05:00 BMP - BASIC METABOLIC PANEL [CHEM] DAILYLAB CBC - COMP BLD CT W/AUTO DIFF [HEME] DAILYLAB 05/29/22 05:00 BMP - BASIC METABOLIC PANEL [CHEM] DAILYLAB CBC - COMP BLD CT W/AUTO DIFF [HEME] DAILYLAB 05/30/22 05:00 BMP - BASIC METABOLIC PANEL [CHEM] DAILYLAB CBC - COMP BLD CT W/AUTO DIFF [HEME] DAILYLAB Subjective - Subjective Patient Reports: Feeling Better, No Complaints (But he cannot remember how long he was sleepy and obtunded at home before coming in yesterday) Objective Vital Signs: Vital Signs - 24 hr 05/25/22 05/25/22 05/25/22 16:03 16:36 20:31 Temperature 36.6 C 36.6 C Heart Rate 70 70 63 Heart Rate [ Brachial] Respiratory 16 19 Rate Blood Pressure 173/115 H 164/102 H 161/107 H Blood Pressure [Right Brachial artery] O2 Saturation 100 100 98 05/25/22 05/25/22 05/26/22 22:30 23:10 07:31 Temperature 36.0 C L 36.9 C 36.5 C Heart Rate 68 Heart Rate [ 65 66 Brachial] Respiratory 18 16 16 Rate Blood Pressure 159/105 H Blood Pressure 149/99 H 150/92 H [Right Brachial artery] O2 Saturation 100 97 95 Oxygen O2 Source Room air I&O (Last 24 Hrs): Intake and Output Totals x24h 05/24/22 05/25/22 05/26/22 23:59 23:59 23:59 Intake Total 100 1270 Output Total 475 Balance 100 795 General: Alert, Oriented x3 HEENT: EOMI, Other (Dry mucosa) Neck: Supple, No JVD Neuro: Alert, Other (Paraplegia from the waist down) Cardiovascular: Regular rate, No murmurs Respiratory: No respiratory distress, Breath sounds nml Abdomen: Normal bowel sounds, Soft, No tenderness Genitourinary: Other (Has Glover in place) Extremities: No clubbing, No edema - Results Results: Laboratory Results WBC 9.4 x10^3/uL (4.8-10.8) 05/25/22 17:17 RBC 5.23 10^6/uL (4.70-6.10) 05/25/22 17:17 Hgb 14.5 g/dL (14.0-18.0) 05/25/22 17:17 Hct 44.9 % (42.0-52.0) 05/25/22 17:17 MCV 85.9 fL (80.0-94.0) 05/25/22 17:17 MCH 27.7 pg (27.0-31.0) 05/25/22 17:17 MCHC 32.3 g/dL (32.0-36.0) 05/25/22 17:17 RDW 17.7 % (12.0-15.0) H 05/25/22 17:17 Plt Count 261 10^3/uL (130-450) 05/25/22 17:17 MPV 12.0 fL (7.4-11.4) H 05/25/22 17:17 Neut # (Auto) 7.3 10^3/uL (1.5-6.6) H 05/25/22 17:17 Lymph # (Auto) 1.2 10^3/uL (1.5-3.5) L 05/25/22 17:17 [place] # (Auto) 0.7 10^3/uL (0.0-1.0) 05/25/22 17:17 Eos # (Auto) 0.2 10^3/uL (0.0-0.7) 05/25/22 17:17 Baso # (Auto) 0.0 10^3/uL (0.0-0.1) 05/25/22 17:17 Absolute Nucleated RBC 0.00 x10^3/uL 05/25/22 17:17 Nucleated RBC % 0.0 /100WBC 05/25/22 17:17 Sodium 140 mmol/L (135-145) 05/25/22 17:17 Potassium 3.4 mmol/L (3.5-5.0) L 05/25/22 17:17 Chloride 102 mmol/L (101-111) 05/25/22 17:17 Carbon Dioxide 27 mmol/L (21-32) 05/25/22 17:17 Anion Gap 11.0 (6-13) 05/25/22 17:17 BUN 28 mg/dL (6-20) H 05/25/22 17:17 Creatinine 1.0 mg/dL (0.6-1.2) 05/25/22 17:17 Estimated GFR (MDRD) 81 (>89) L 05/25/22 17:17 Glucose 109 mg/dL (70-100) H 05/25/22 17:17 Lactic Acid 1.0 mmol/L (0.5-2.2) 05/25/22 19:11 Calcium 9.4 mg/dL (8.5-10.3) 05/25/22 17:17 Urine Color DARK YELLOW 05/25/22 17:26 Urine Clarity CLOUDY (CLEAR) 05/25/22 17:26 Urine pH 6.5 PH (5.0-7.5) 05/25/22 17:26 Ur Specific [place] >=1.030 (1.002-1.030) H 05/25/22 17:26 Urine Protein >=300 mg/dL (NEGATIVE) H 05/25/22 17:26 Urine Glucose (UA) NEGATIVE mg/dL (NEGATIVE) 05/25/22 17:26 Urine Ketones 15 mg/dL (NEGATIVE) H 05/25/22 17:26 Urine Occult Blood LARGE (NEGATIVE) H 05/25/22 17:26 Urine Nitrite POSITIVE (NEGATIVE) H 05/25/22 17:26 Urine Bilirubin NEGATIVE (NEGATIVE) 05/25/22 17:26 Urine Urobilinogen 2 E.U./dL (NORMAL) H 05/25/22 17:26 Ur Leukocyte Esterase MODERATE (NEGATIVE) H 05/25/22 17:26 Urine RBC TNTC /HPF (0-5) H 05/25/22 17:26 Urine WBC 11-25 /HPF (0-3) H 05/25/22 17:26 Ur Squamous Epith Cells NONE SEEN (<= Few) 05/25/22 17:26 Urine Bacteria Many /HPF (None Seen) H 05/25/22 17:26 Ur Microscopic Review INDICATED 05/25/22 17:26 Urine Culture Comments INDICATED 05/25/22 17:26 Nasal Adenovirus (PCR) NOT DETECTED 05/25/22 20:31 Nasal B. parapertussis DNA (PCR) NOT DETECTED 05/25/22 20:31 Nasal Coronavir 229E PCR NOT DETECTED 05/25/22 20:31 Nasal Coronavir HKU1 PCR NOT DETECTED 05/25/22 20:31 Nasal Coronavir NL63 PCR NOT DETECTED 05/25/22 20:31 Nasal Coronavir OC43 PCR NOT DETECTED 05/25/22 20:31 Nasal Enterovir/Rhinovir PCR NOT DETECTED 05/25/22 20:31 Nasal Influenza B PCR NOT DETECTED 05/25/22 20:31 Nasal Influenza A PCR NOT DETECTED 05/25/22 20:31 Nasal Parainfluen 1 PCR NOT DETECTED 05/25/22 20:31 Nasal Parainfluen 2 PCR NOT DETECTED 05/25/22 20:31 Nasal Parainfluen 3 PCR NOT DETECTED 05/25/22 20:31 Nasal Parainfluen 4 PCR NOT DETECTED 05/25/22 20:31 Nasal RSV (PCR) NOT DETECTED 05/25/22 20:31 Nasal B.pertussis DNA PCR NOT DETECTED 05/25/22 20:31 Nasal C.pneumoniae (PCR) NOT DETECTED 05/25/22 20:31 Tito Human Metapneumo PCR NOT DETECTED 05/25/22 20:31 Nasal M.pneumoniae (PCR) NOT DETECTED 05/25/22 20:31 Nasal SARS-CoV-2 (PCR) NOT DETECTED 05/25/22 20:31 Urine Opiates Screen NEGATIVE (NEGATIVE) 05/25/22 18:59 Ur Oxycodone Screen POSITIVE (NEGATIVE) H 05/25/22 18:59 Urine Methadone Screen NEGATIVE (NEGATIVE) 05/25/22 18:59 Ur Propoxyphene Screen NEGATIVE (NEGATIVE) 05/25/22 18:59 Ur Barbiturates Screen NEGATIVE (NEGATIVE) 05/25/22 18:59 Ur Tricyclics Screen NEGATIVE (NEGATIVE) 05/25/22 18:59 Ur Phencyclidine Scrn NEGATIVE (NEGATIVE) 05/25/22 18:59 Ur Amphetamine Screen NEGATIVE (NEGATIVE) 05/25/22 18:59 U Methamphetamines Scrn NEGATIVE (NEGATIVE) 05/25/22 18:59 U Benzodiazepines Scrn NEGATIVE (NEGATIVE) 05/25/22 18:59 Urine Cocaine Screen NEGATIVE (NEGATIVE) 05/25/22 18:59 U Cannabinoids Screen NEGATIVE (NEGATIVE) 05/25/22 18:59
[2022-05-26] MEDS: cefTRIAXone 1 GM in SODIUM CHLORIDE 0.9% MINIBAG 100 ML IV SCH (09:25)
[2022-05-26 09:30] LABS: BASOPHILS % (AUTO) 0.6 %; EOSINOPHILS # (AUTO) 0.2 10^3/uL (0.0-0.7); EOSINOPHILS % (AUTO) 3.6 %; HCT - HEMATOCRIT 37.7 % (42.0-52.0); LYMPHOCYTES # (AUTO) 0.9 10^3/uL (1.5-3.5); LYMPHOCYTES % (AUTO) 13.2 %; MEAN CORPUSCULAR HEMOGLOBIN 27.9 pg (27.0-31.0); MEAN CORPUSCULAR HGB CONC 31.8 g/dL (32.0-36.0); MEAN CORPUSCULAR VOLUME 87.7 fL (80.0-94.0); MEAN PLATELET VOLUME 12.1 fL (7.4-11.4); MONOCYTES # (AUTO) 0.4 10^3/uL (0.0-1.0); MONOCYTES % (AUTO) 5.6 %; NEUTROPHILS # (AUTO) 5.1 10^3/uL (1.5-6.6); NEUTROPHILS % (AUTO) 76.5 %; PLT - PLATELET COUNT 223 10^3/uL (130-450); RED CELL DISTRIBUTION WIDTH 17.6 % (12.0-15.0); WHITE BLOOD COUNT 6.6 x10^3/uL (4.8-10.8)
[2022-05-26] MEDS: DULoxetine 30 MG CAPSULE PO SCH (09:35)
[2022-05-26] MEDS: PREGABALIN 100 MG CAPSULE PO SCH ×2 (09:36→20:40)
[2022-05-26] MEDS ORDERED: cefTRIAXone 1 GM VIAL ONE (09:40)
[2022-05-26 09:46] LABS: ALBUMIN 3.5 g/dL (3.2-5.5); ALBUMIN/GLOBULIN RATIO 1.3 (1.0-2.2); BILIRUBIN,TOTAL 0.6 mg/dL (0.2-1.0); CALCIUM 8.9 mg/dL (8.5-10.3); MAGNESIUM 1.9 mg/dL (1.7-2.8); POTASSIUM 3.9 mmol/L (3.5-5.0); TOTAL PROTEIN 6.3 g/dL (6.7-8.2)
[2022-05-26] MEDS ORDERED: VANCOMYCIN INJ 1.25 GM in SODIUM CHLORIDE 0.9% 250 ML IV SCH (10:00)
[2022-05-26] MEDS: VANCOMYCIN INJ 1 GM in SODIUM CHLORIDE 0.9% 250 ML IV SCH ×2 (10:01→20:43)
[2022-05-26] MEDS: BACLOFEN 10 MG TABLET PO SCH ×2 (13:00→20:41)
[2022-05-26] MEDS ORDERED: oxyCODONE ER 10 MG TABLET PO ONE (14:43)
[2022-05-26] MEDS ORDERED: cefTRIAXone 1 GM in SODIUM CHLORIDE 0.9% MINIBAG 100 ML IV SCH (18:00)
[2022-05-26] MEDS: oxyCODONE ER 10 MG TABLET PO SCH (20:41)
[2022-05-27] MEDS: SODIUM CHLORIDE FLUSH 0.9% 10 ML SYRINGE IVP SCH ×3 (01:20→16:23)
[2022-05-27] MEDS: oxyCODONE 5 MG TABLET PO PRN ×2 (02:13→14:51)
[2022-05-27] MEDS: ACETAMINOPHEN 325 MG TABLET PO PRN (03:11)
[2022-05-27 05:38] LABS: BASOPHILS % (AUTO) 0.6 %; EOSINOPHILS # (AUTO) 0.3 10^3/uL (0.0-0.7); EOSINOPHILS % (AUTO) 4.5 %; HCT - HEMATOCRIT 36.6 % (42.0-52.0); HGB - HEMOGLOBIN 11.5 g/dL (14.0-18.0); LYMPHOCYTES # (AUTO) 1.6 10^3/uL (1.5-3.5); LYMPHOCYTES % (AUTO) 23.5 %; MEAN CORPUSCULAR HEMOGLOBIN 27.8 pg (27.0-31.0); MEAN CORPUSCULAR HGB CONC 31.4 g/dL (32.0-36.0); MEAN CORPUSCULAR VOLUME 88.6 fL (80.0-94.0); MEAN PLATELET VOLUME 12.1 fL (7.4-11.4); MONOCYTES # (AUTO) 0.6 10^3/uL (0.0-1.0); MONOCYTES % (AUTO) 9.2 %; NEUTROPHILS # (AUTO) 4.1 10^3/uL (1.5-6.6); NEUTROPHILS % (AUTO) 61.9 %; PLT - PLATELET COUNT 213 10^3/uL (130-450); RED BLOOD COUNT 4.13 10^6/uL (4.70-6.10); RED CELL DISTRIBUTION WIDTH 17.8 % (12.0-15.0); WHITE BLOOD COUNT 6.7 x10^3/uL (4.8-10.8)
[2022-05-27] MEDS: BACLOFEN 10 MG TABLET PO SCH ×3 (05:40→20:40)
[2022-05-27] MEDS: PREGABALIN 100 MG CAPSULE PO SCH ×2 (05:40→17:11)
[2022-05-27 05:47] LABS: CALCIUM 8.6 mg/dL (8.5-10.3); CREATININE 0.8 mg/dL (0.6-1.2); MAGNESIUM 2.1 mg/dL (1.7-2.8); POTASSIUM 3.3 mmol/L (3.5-5.0)
[2022-05-27] MEDS: METOPROLOL SUCCINATE 50 MG TABLET PO SCH (08:08)
[2022-05-27] MEDS: DULoxetine 30 MG CAPSULE PO SCH (08:08)
[2022-05-27] MEDS: oxyCODONE ER 10 MG TABLET PO SCH ×2 (08:09→20:40)
[2022-05-27] MEDS: cefTRIAXone 1 GM in SODIUM CHLORIDE 0.9% MINIBAG 100 ML IV SCH (08:09)
[2022-05-27] MEDS: VANCOMYCIN INJ 1 GM in SODIUM CHLORIDE 0.9% 250 ML IV SCH ×2 (10:26→20:40)
[2022-05-27] MEDS: SODIUM CHLORIDE 0.9% 1,000 ML IV SCH ×3 (11:04→21:24)
--- NOTE | 2022-05-27 13:39 | PROVIDER PROGRESS NOTE ---
Assessment/Plan - Problem List (1) Emphysematous pyelitis Assessment/Plan: Small amounts of air was seen near the R renal pelvis,consistent with emphysematous pyelitis. Stranding of bilateral proximal ureters was seen by CT abdomen pelvis. Continue with IV ceftriaxone. Await urine culture results and sensitivities to tailor antibiotics. Will plan a 14-day total course of antibiotics. (2) Right hydronephrosis Assessment/plan: Noted on imaging CT. (3) Bilateral ureteral calculi Assessment/plan: Noted on imaging CT abdomen pelvis and these are stable and chronic (4) Hypokalemia Assessment/plan: Likely related to poor p.o. intake over the 4 to 5 days that he was somnolent. Will replace. Follow BMP daily (5) Paraplegia Assessment/plan: He has weakness from the lower waist down he says. 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 He does get muscle spasms and his home meds will be reordered (6) Chronic indwelling glover catheter Assessment/plan: Chronic, due to neurogenic bladder Continue with Glover care. Will assure that a new Glover was re-inserted, when he presented for this admission, and his RN got report from ED RN that it was replaced. (7) Sacral decubitus ulcer Assessment/plan: This is a chronic problem, suspect he is supine in bed alot. He says his changes the dressing daily, and he gets put in a chair with assistance, he reported to me. Many pressure wounds are noted, documented in pictures, and were present at admission. These could have been another source of infection and caused AMS. Wound consult has been ordered. PT has been ordered. Today he will be OOB (8) HTN Assessment/plan: His BP has been very elevated since presentation. His medication list shows that he takes beta-marty Metoprolol tartrate has been changed to succinate for longer-term effect. Will also add hydralazine since blood pressure is poorly controlled (9) AMS Assessment/plan: Resolved. Pt is awake, communicating and back to his baseline this morning. - Current Meds Current Meds: Current Medications Generic Name Dose Route Start Last Admin Trade Name Freq PRN Reason Stop Dose Admin Acetaminophen 650 mg 05/26/22 05:38 05/27/22 03:11 Acetaminophen 325 Mg Tablet PO 650 mg Q6HR PRN Administration PAIN Baclofen 10 mg 05/26/22 12:00 05/27/22 05:40 Baclofen 10 Mg Tablet PO 10 mg TID JOB Administration Duloxetine HCl 60 mg 05/26/22 10:00 05/27/22 08:08 Duloxetine 30 Mg Capsule PO 60 mg DAILY JOB Administration Sodium Chloride 1,000 mls @ 100 mls/hr 05/25/22 21:00 05/27/22 11:04 Normal Saline 0.9% IV 100 mls/hr .Q10H JOB Administration Ceftriaxone Sodium 1 gm/ 100 mls @ 200 mls/hr 05/26/22 09:00 05/27/22 08:40 Sodium Chloride IV Infused DAILY JOB Infusion Vancomycin HCl 1 gm/ Sodium 250 mls @ 167 mls/hr 05/26/22 10:00 05/27/22 10:26 Chloride IV 167 mls/hr Q12H JOB Administration Metoprolol Succinate 50 mg 05/26/22 09:00 05/27/22 08:08 Metoprolol Succinate 50 Mg Tablet PO 50 mg DAILY JOB Administration Oxycodone HCl 5 mg 05/26/22 07:37 05/27/22 02:13 Oxycodone 5 Mg Tablet PO 5 mg Q6HR PRN Administration PAIN Oxycodone HCl 10 mg 05/26/22 21:00 05/27/22 08:09 Oxycodone Er 10 Mg Tablet PO 10 mg BID JOB Administration Pregabalin 300 mg 05/27/22 06:00 05/27/22 05:40 Pregabalin 100 Mg Capsule PO 300 mg BID@0600,1800 JOB Administration Sodium Chloride 10 ml 05/26/22 01:00 05/27/22 10:17 Sodium Chloride Flush 0.9% 10 Ml Syringe IVP Not Given 0100,0900,1700 JOB - Lab Result Fish Bone Diagrams: 05/27/22 05:22 05/27/22 05:22 - Additional Planning My Orders: My Active Orders 05/26/22 21:00 oxyCODONE ER [OxyCONTIN] 10 mg PO BID 05/27/22 06:00 Pregabalin [Lyrica] 300 mg PO BID@0600,1800 05/27/22 Lunch DIET [Low Sodium Diet] [DIET] 05/28/22 05:00 BMP - BASIC METABOLIC PANEL [CHEM] DAILYLAB CBC - COMP BLD CT W/AUTO DIFF [HEME] DAILYLAB 05/29/22 05:00 BMP - BASIC METABOLIC PANEL [CHEM] DAILYLAB CBC - COMP BLD CT W/AUTO DIFF [HEME] DAILYLAB 05/30/22 05:00 BMP - BASIC METABOLIC PANEL [CHEM] DAILYLAB CBC - COMP BLD CT W/AUTO DIFF [HEME] DAILYLAB Subjective - Subjective Patient Reports: Feeling Better, Other (He is hungry on this diet, wants it changed to low-salt from cardiac diet, requesting more protein in the form of Ensure) Objective Vital Signs: Vital Signs - 24 hr 05/26/22 05/26/22 05/26/22 15:58 19:57 23:24 Temperature 36.5 C 37.0 C 36.9 C Heart Rate [ 85 85 84 Brachial] Respiratory 17 16 18 Rate Blood Pressure 143/93 H [Left Brachial artery] Blood Pressure 144/90 H 138/86 H [Right Brachial artery] O2 Saturation 97 95 97 05/27/22 05/27/22 05/27/22 05:19 07:15 12:37 Temperature 37 C 36.5 C 36.9 C Heart Rate [ 78 78 83 Brachial] Respiratory 16 16 Rate Blood Pressure 122/84 H 135/76 H 135/94 H [Left Brachial artery] Blood Pressure [Right Brachial artery] O2 Saturation 97 98 98 Oxygen O2 Source Room air I&O (Last 24 Hrs): Intake and Output Totals x24h 05/25/22 05/26/22 05/27/22 23:59 23:59 23:59 Intake Total 100 5155 3387.000 Output Total 3050 4600 Balance 100 2105 -1213.000 General: Alert, Oriented x3 HEENT: Mucous membr. moist/pink, Other (edentulous, broken all upper teeth) Neck: Supple, No JVD Neuro: Alert, Other (Paraplegia) Cardiovascular: Regular rate Respiratory: No respiratory distress Abdomen: Soft Genitourinary: Other (Grade 2 or 3 sacral decubitus ulcer noted) Extremities: Other (Multiple redened areas, heels and legs.) - Results Results: Laboratory Results WBC 6.7 x10^3/uL (4.8-10.8) 05/27/22 05:22 RBC 4.13 10^6/uL (4.70-6.10) L 05/27/22 05:22 Hgb 11.5 g/dL (14.0-18.0) L 05/27/22 05:22 Hct 36.6 % (42.0-52.0) L 05/27/22 05:22 MCV 88.6 fL (80.0-94.0) 05/27/22 05:22 MCH 27.8 pg (27.0-31.0) 05/27/22 05: MCHC 31.4 g/dL (32.0-36.0) L 05/27/22 05:22 RDW 17.8 % (12.0-15.0) H 05/27/22 05:22 Plt Count 213 10^3/uL (130-450) 05/27/22 05: MPV 12.1 fL (7.4-11.4) H 05/27/22 05:22 Neut # (Auto) 4.1 10^3/uL (1.5-6.6) 05/27/22 05:22 Lymph # (Auto) 1.6 10^3/uL (1.5-3.5) 05/27/22 05:22 [place] # (Auto) 0.6 10^3/uL (0.0-1.0) 05/27/22 05:22 Eos # (Auto) 0.3 10^3/uL (0.0-0.7) 05/27/22 05:22 Baso # (Auto) 0.0 10^3/uL (0.0-0.1) 05/27/22 05:22 Absolute Nucleated RBC 0.00 x10^3/uL 05/27/22 05:22 Nucleated RBC % 0.0 /100WBC 05/27/22 05:22 Sodium 140 mmol/L (135-145) 05/27/22 05:22 Potassium 3.3 mmol/L (3.5-5.0) L 05/27/22 05:22 Chloride 106 mmol/L (101-111) 05/27/22 05:22 Carbon Dioxide 26 mmol/L (21-32) 05/27/22 05:22 Anion Gap 8.0 (6-13) 05/27/22 05:22 BUN 12 mg/dL (6-20) 05/27/22 05:22 Creatinine 0.8 mg/dL (0.6-1.2) 05/27/22 05:22 Estimated GFR (MDRD) 105 (>89) 05/27/22 05:22 Glucose 121 mg/dL (70-100) H 05/27/22 05:22 Lactic Acid 1.0 mmol/L (0.5-2.2) 05/25/22 19:11 Calcium 8.6 mg/dL (8.5-10.3) 05/27/22 05:22 Magnesium 2.1 mg/dL (1.7-2.8) 05/27/22 05:22 Total Bilirubin 0.6 mg/dL (0.2-1.0) 05/26/22 09:24 AST 14 IU/L (10-42) 05/26/22 09:24 ALT 11 IU/L (10-60) 05/26/22 09:24 Alkaline Phosphatase 66 IU/L (42-121) 05/26/22 09:24 Total Protein 6.3 g/dL (6.7-8.2) L 05/26/22 09:24 Albumin 3.5 g/dL (3.2-5.5) 05/26/22 09:24 Globulin 2.8 g/dL (2.1-4.2) 05/26/22 09:24 Albumin/Globulin Ratio 1.3 (1.0-2.2) 05/26/22 09:24 Urine Color DARK YELLOW 05/25/22 17:26 Urine Clarity CLOUDY (CLEAR) 05/25/22 17:26 Urine pH 6.5 PH (5.0-7.5) 05/25/22 17:26 Ur Specific [place] >=1.030 (1.002-1.030) H 05/25/22 17:26 Urine Protein >=300 mg/dL (NEGATIVE) H 05/25/22 17:26 Urine Glucose (UA) NEGATIVE mg/dL (NEGATIVE) 05/25/22 17: Urine Ketones 15 mg/dL (NEGATIVE) H 05/25/22 17:26 Urine Occult Blood LARGE (NEGATIVE) H 05/25/22 17:26 Urine Nitrite POSITIVE (NEGATIVE) H 05/25/22 17:26 Urine Bilirubin NEGATIVE (NEGATIVE) 05/25/22 17: Urine Urobilinogen 2 E.U./dL (NORMAL) H 05/25/22 17:26 Ur Leukocyte Esterase MODERATE (NEGATIVE) H 05/25/22 17:26 Urine RBC TNTC /HPF (0-5) H 05/25/22 17:26 Urine WBC 11-25 /HPF (0-3) H 05/25/22 17:26 Ur Squamous Epith Cells NONE SEEN (<= Few) 05/25/22 17:26 Urine Bacteria Many /HPF (None Seen) H 05/25/22 17:26 Ur Microscopic Review INDICATED 05/25/22 17:26 Urine Culture Comments INDICATED 05/25/22 17:26 Nasal Adenovirus (PCR) NOT DETECTED 05/25/22 20:31 Nasal B. parapertussis DNA (PCR) NOT DETECTED 05/25/22 20:31 Nasal Coronavir 229E PCR NOT DETECTED 05/25/22 20:31 Nasal Coronavir HKU1 PCR NOT DETECTED 05/25/22 20:31 Nasal Coronavir NL63 PCR NOT DETECTED 05/25/22 20:31 Nasal Coronavir OC43 PCR NOT DETECTED 05/25/22 20:31 Nasal Enterovir/Rhinovir PCR NOT DETECTED 05/25/22 20:31 Nasal Influenza B PCR NOT DETECTED 05/25/22 20:31 Nasal Influenza A PCR NOT DETECTED 05/25/22 20:31 Nasal Parainfluen 1 PCR NOT DETECTED 05/25/22 20:31 Nasal Parainfluen 2 PCR NOT DETECTED 05/25/22 20:31 Nasal Parainfluen 3 PCR NOT DETECTED 05/25/22 20:31 Nasal Parainfluen 4 PCR NOT DETECTED 05/25/22 20:31 Nasal RSV (PCR) NOT DETECTED 05/25/22 20:31 Nasal B.pertussis DNA PCR NOT DETECTED 05/25/22 20:31 Nasal C.pneumoniae (PCR) NOT DETECTED 05/25/22 20:31 [place]ito Human Metapneumo PCR NOT DETECTED 05/25/22 20:31 Nasal M.pneumoniae (PCR) NOT DETECTED 05/25/22 20:31 Nasal SARS-CoV-2 (PCR) NOT DETECTED 05/25/22 20:31 Urine Opiates Screen NEGATIVE (NEGATIVE) 05/25/22 18:59 Ur Oxycodone Screen POSITIVE (NEGATIVE) H 05/25/22 18:59 Urine Methadone Screen NEGATIVE (NEGATIVE) 05/25/22 18:59 Ur Propoxyphene Screen NEGATIVE (NEGATIVE) 05/25/22 18:59 Ur Barbiturates Screen NEGATIVE (NEGATIVE) 05/25/22 18:59 Ur Tricyclics Screen NEGATIVE (NEGATIVE) 05/25/22 18:59 Ur Phencyclidine Scrn NEGATIVE (NEGATIVE) 05/25/22 18:59 Ur Amphetamine Screen NEGATIVE (NEGATIVE) 05/25/22 18:59 U Methamphetamines Scrn NEGATIVE (NEGATIVE) 05/25/22 18:59 U Benzodiazepines Scrn NEGATIVE (NEGATIVE) 05/25/22 18:59 Urine Cocaine Screen NEGATIVE (NEGATIVE) 05/25/22 18:59 U Cannabinoids Screen NEGATIVE (NEGATIVE) 05/25/22 18:59
[2022-05-27] MEDS ORDERED: POTASSIUM CHLORIDE 10 MEQ CAPSULE PO ONE (17:08)
[2022-05-28] MEDS: SODIUM CHLORIDE FLUSH 0.9% 10 ML SYRINGE IVP SCH ×4 (00:08→23:22)
[2022-05-28] MEDS: oxyCODONE 5 MG TABLET PO PRN ×3 (02:33→18:46)
[2022-05-28 06:00] LABS: BASOPHILS # (AUTO) 0.1 10^3/uL (0.0-0.1); BASOPHILS % (AUTO) 0.9 %; EOSINOPHILS # (AUTO) 0.4 10^3/uL (0.0-0.7); EOSINOPHILS % (AUTO) 7.8 %; HCT - HEMATOCRIT 37.4 % (42.0-52.0); HGB - HEMOGLOBIN 11.5 g/dL (14.0-18.0); LYMPHOCYTES # (AUTO) 1.2 10^3/uL (1.5-3.5); LYMPHOCYTES % (AUTO) 21.4 %; MEAN CORPUSCULAR HEMOGLOBIN 27.8 pg (27.0-31.0); MEAN CORPUSCULAR HGB CONC 30.7 g/dL (32.0-36.0); MEAN CORPUSCULAR VOLUME 90.3 fL (80.0-94.0); MEAN PLATELET VOLUME 12.3 fL (7.4-11.4); MONOCYTES # (AUTO) 0.6 10^3/uL (0.0-1.0); MONOCYTES % (AUTO) 10.9 %; NEUTROPHILS # (AUTO) 3.3 10^3/uL (1.5-6.6); NEUTROPHILS % (AUTO) 58.8 %; PLT - PLATELET COUNT 235 10^3/uL (130-450); RED BLOOD COUNT 4.14 10^6/uL (4.70-6.10); RED CELL DISTRIBUTION WIDTH 17.4 % (12.0-15.0); WHITE BLOOD COUNT 5.5 x10^3/uL (4.8-10.8)
[2022-05-28 06:07] LABS: CALCIUM 8.9 mg/dL (8.5-10.3); CREATININE 0.8 mg/dL (0.6-1.2); POTASSIUM 3.8 mmol/L (3.5-5.0)
[2022-05-28] MEDS: PREGABALIN 100 MG CAPSULE PO SCH ×2 (06:30→17:51)
[2022-05-28] MEDS: BACLOFEN 10 MG TABLET PO SCH ×3 (06:30→21:16)
[2022-05-28] MEDS: SODIUM CHLORIDE 0.9% 1,000 ML IV SCH ×2 (08:05→17:51)
--- NOTE | 2022-05-28 09:04 | PROVIDER PROGRESS NOTE ---
Assessment/Plan - Problem List (1) Emphysematous pyelitis Assessment/Plan: Small amounts of air was seen near the R renal pelvis,consistent with emphysematous pyelitis. Stranding of bilateral proximal ureters was seen by CT abdomen pelvis. Continue with IV ceftriaxone. Await urine culture results and sensitivities to tailor antibiotics. Will plan a 14-day total course of antibiotics for a complicated UTI (2) E coli UTI Assessment/plan: Identification is come back showing E. coli, there are some antibiotics is resistant to but is sensitive to ceftriaxone. Will stop ceftriaxone today and start oral Ancef 500 4 times daily. Will plan a 14-day total course of antibiotics for good prostate penetration. (3) Right hydronephrosis Assessment/plan: Noted on imaging CT. (4) Bilateral ureteral calculi Assessment/plan: Noted on imaging CT abdomen pelvis and these are stable and chronic (5) Paraplegia Assessment/plan: He has weakness from the lower waist down he says. 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 He does get muscle spasms and his home meds will be reordered (6) Chronic indwelling glover catheter Assessment/plan: Chronic, due to neurogenic bladder Continue with Glover care. A new Glover was re-inserted in the ED, when he presented for this admission. (7) Sacral decubitus ulcer Assessment/plan: This is a chronic problem, suspect he is supine in bed alot. He says his changes the dressing daily, and he gets put in a chair with 2-person assistance, he is usually able to operate a wheelchair and can even take ParaTransport, he said. Many pressure wounds are noted, documented in pictures, and were present at admission. These could have been another source of infection and caused AMS. Per TECHNICAL COMMUNICATION TEACHER, an APS report has been submitted, because possibly the is not doing adequate wound care at home. She is his caregiver, with help from the w andrew's friend. Wound consult was ordered by the Telemedicine admitting doctor. I called [facility] today and they did not receive the consult, it will be reordered. Domi Donato of wound services is not available till tomorrow. I spoke to Dr. Goetz today, who is on consults for General Surgery for this week, and she advised that [facility] should see him and only if they need sharp debridement, they would call her to debride him in the OR PT and OT have been ordered to work with him. (8) Hypokalemia Assessment/plan: Likely related to poor p.o. intake over the 4 to 5 days that he was somnolent. Will replace. Follow BMP daily (9) HTN Assessment/plan: His BP has been very elevated since presentation. His medication list shows that he takes beta-marty Metoprolol tartrate has been changed to succinate for longer-term effect. Will also add hydralazine since blood pressure is poorly controlled (10) AMS Assessment/plan: Resolved. Pt is awake, communicating and back to his baseline this morning. - Current Meds Current Meds: Current Medications Generic Name Dose Route Start Last Admin Trade Name Freq PRN Reason Stop Dose Admin Acetaminophen 650 mg 05/26/22 05:38 05/27/22 03:11 Acetaminophen 325 Mg Tablet PO 650 mg Q6HR PRN Administration PAIN Baclofen 10 mg 05/26/22 12:00 05/28/22 06:30 Baclofen 10 Mg Tablet PO 10 mg TID JOB Administration Duloxetine HCl 60 mg 05/26/22 10:00 05/27/22 08:08 Duloxetine 30 Mg Capsule PO 60 mg DAILY JOB Administration Sodium Chloride 1,000 mls @ 100 mls/hr 05/25/22 21:00 05/28/22 08:05 Normal Saline 0.9% IV 100 mls/hr .Q10H JOB Administration Vancomycin HCl 1 gm/ Sodium 250 mls @ 167 mls/hr 05/26/22 10:00 05/27/22 22:11 Chloride IV Infused Q12H JOB Infusion Metoprolol Succinate 50 mg 05/26/22 09:00 05/27/22 08:08 Metoprolol Succinate 50 Mg Tablet PO 50 mg DAILY JOB Administration Oxycodone HCl 5 mg 05/26/22 07:37 05/28/22 02:33 Oxycodone 5 Mg Tablet PO 5 mg Q6HR PRN Administration PAIN Oxycodone HCl 10 mg 05/26/22 21:00 05/27/22 20:40 Oxycodone Er 10 Mg Tablet PO 10 mg BID JOB Administration Pregabalin 300 mg 05/27/22 06:00 05/28/22 06:30 Pregabalin 100 Mg Capsule PO 300 mg BID@0600,1800 JOB Administration Sodium Chloride 10 ml 05/26/22 01:00 05/28/22 00:08 Sodium Chloride Flush 0.9% 10 Ml Syringe IVP Not Given 0100,0900,1700 JOB - Lab Result Fish Bone Diagrams: 05/28/22 05:47 05/28/22 05:47 - Additional Planning My Orders: My Active Orders 05/27/22 Lunch DIET [Low Sodium Diet] [DIET] 05/28/22 09:02 Saccharomyces Boulardii [Florastor] 250 mg PO BIDWM 05/28/22 13:00 cephALEXin [Keflex] 500 mg PO QID 05/29/22 05:00 BMP - BASIC METABOLIC PANEL [CHEM] DAILYLAB CBC - COMP BLD CT W/AUTO DIFF [HEME] DAILYLAB 05/30/22 05:00 BMP - BASIC METABOLIC PANEL [CHEM] DAILYLAB CBC - COMP BLD CT W/AUTO DIFF [HEME] DAILYLAB Subjective - Subjective Patient Reports: Feeling Better (His only complaint is pain at the sacral decubitus and his buttocks) Objective Vital Signs: Vital Signs - 24 hr 05/27/22 05/27/22 05/28/22 12:37 16:01 00:00 Temperature 36.9 C 36.7 C 36.6 C Heart Rate [ 83 73 84 Brachial] Respiratory 16 20 18 Rate Blood Pressure 135/94 H 140/83 H 128/76 [Left Brachial artery] O2 Saturation 98 97 96 05/28/22 07:39 Temperature 36.7 C Heart Rate [ 73 Brachial] Respiratory 18 Rate Blood Pressure 131/94 H [Left Brachial artery] O2 Saturation 95 Oxygen O2 Source Room air I&O (Last 24 Hrs): Intake and Output Totals x24h 05/26/22 05/27/22 05/28/22 23:59 23:59 23:59 Intake Total 5155 6337.000 2340 Output Total 3050 7700 2200 Balance 2105 -1363.000 140 General: Alert, Oriented x3 HEENT: EOMI, Mucous membr. moist/pink Neck: Supple, No JVD Cardiovascular: Regular rate, No murmurs Respiratory: No respiratory distress, Breath sounds nml Abdomen: Normal bowel sounds, Soft Extremities: No edema, Other (Paraplegia from the lower waist down) - Results Results: Laboratory Results WBC 5.5 x10^3/uL (4.8-10.8) 05/28/22 05:47 RBC 4.14 10^6/uL (4.70-6.10) L 05/28/22 05:47 Hgb 11.5 g/dL (14.0-18.0) L 05/28/22 05:47 Hct 37.4 % (42.0-52.0) L 05/28/22 05:47 MCV 90.3 fL (80.0-94.0) 05/28/22 05:47 MCH 27.8 pg (27.0-31.0) 05/28/22 05:47 MCHC 30.7 g/dL (32.0-36.0) L 05/28/22 05:47 RDW 17.4 % (12.0-15.0) H 05/28/22 05:47 Plt Count 235 10^3/uL (130-450) 05/28/22 05:47 MPV 12.3 fL (7.4-11.4) H 05/28/22 05:47 Neut # (Auto) 3.3 10^3/uL (1.5-6.6) 05/28/22 05:47 Lymph # (Auto) 1.2 10^3/uL (1.5-3.5) L 05/28/22 05:47 [place] # (Auto) 0.6 10^3/uL (0.0-1.0) 05/28/22 05:47 Eos # (Auto) 0.4 10^3/uL (0.0-0.7) 05/28/22 05:47 Baso # (Auto) 0.1 10^3/uL (0.0-0.1) 05/28/22 05:47 Absolute Nucleated RBC 0.00 x10^3/uL 05/28/22 05:47 Nucleated RBC % 0.0 /100WBC 05/28/22 05:47 Sodium 139 mmol/L (135-145) 05/28/22 05:47 Potassium 3.8 mmol/L (3.5-5.0) 05/28/22 05:47 Chloride 102 mmol/L (101-111) 05/28/22 05:47 Carbon Dioxide 31 mmol/L (21-32) 05/28/22 05:47 Anion Gap 6.0 (6-13) 05/28/22 05:47 BUN 10 mg/dL (6-20) 05/28/22 05:47 Creatinine 0.8 mg/dL (0.6-1.2) 05/28/22 05:47 Estimated GFR (MDRD) 105 (>89) 05/28/22 05:47 Glucose 99 mg/dL (70-100) 05/28/22 05:47 Lactic Acid 1.0 mmol/L (0.5-2.2) 05/25/22 19:11 Calcium 8.9 mg/dL (8.5-10.3) 05/28/22 05:47 Magnesium 2.1 mg/dL (1.7-2.8) 05/27/22 05:22 Total Bilirubin 0.6 mg/dL (0.2-1.0) 05/26/22 09:24 AST 14 IU/L (10-42) 05/26/22 09:24 ALT 11 IU/L (10-60) 05/26/22 09:24 Alkaline Phosphatase 66 IU/L (42-121) 05/26/22 09:24 Total Protein 6.3 g/dL (6.7-8.2) L 05/26/22 09:24 Albumin 3.5 g/dL (3.2-5.5) 05/26/22 09:24 Globulin 2.8 g/dL (2.1-4.2) 05/26/22 09:24 Albumin/Globulin Ratio 1.3 (1.0-2.2) 05/26/22 09:24 Urine Color DARK YELLOW 05/25/22 17:26 Urine Clarity CLOUDY (CLEAR) 05/25/22 17:26 Urine pH 6.5 PH (5.0-7.5) 05/25/22 17:26 Ur Specific [place] >=1.030 (1.002-1.030) H 05/25/22 17:26 Urine Protein >=300 mg/dL (NEGATIVE) H 05/25/22 17:26 Urine Glucose (UA) NEGATIVE mg/dL (NEGATIVE) 05/25/22 17:26 Urine Ketones 15 mg/dL (NEGATIVE) H 05/25/22 17:26 Urine Occult Blood LARGE (NEGATIVE) H 05/25/22 17:26 Urine Nitrite POSITIVE (NEGATIVE) H 05/25/22 17:26 Urine Bilirubin NEGATIVE (NEGATIVE) 05/25/22 17:26 Urine Urobilinogen 2 E.U./dL (NORMAL) H 05/25/22 17:26 Ur Leukocyte Esterase MODERATE (NEGATIVE) H 05/25/22 17:26 Urine RBC TNTC /HPF (0-5) H 05/25/22 17:26 Urine WBC 11-25 /HPF (0-3) H 05/25/22 17:26 Ur Squamous Epith Cells NONE SEEN (<= Few) 05/25/22 17:26 Urine Bacteria Many /HPF (None Seen) H 05/25/22 17:26 Ur Microscopic Review INDICATED 05/25/22 17: Urine Culture Comments INDICATED 05/25/22 17: Nasal Adenovirus (PCR) NOT DETECTED 05/25/22 20:31 Nasal B. parapertussis DNA (PCR) NOT DETECTED 05/25/22 20:31 Nasal Coronavir 229E PCR NOT DETECTED 05/25/22 20:31 Nasal Coronavir HKU1 PCR NOT DETECTED 05/25/22 20:31 Nasal Coronavir NL63 PCR NOT DETECTED 05/25/22 20:31 Nasal Coronavir OC43 PCR NOT DETECTED 05/25/22 20:31 Nasal Enterovir/Rhinovir PCR NOT DETECTED 05/25/22 20:31 Nasal Influenza B PCR NOT DETECTED 05/25/22 20:31 Nasal Influenza A PCR NOT DETECTED 05/25/22 20:31 Nasal Parainfluen 1 PCR NOT DETECTED 05/25/22 20:31 Nasal Parainfluen 2 PCR NOT DETECTED 05/25/22 20:31 Nasal Parainfluen 3 PCR NOT DETECTED 05/25/22 20:31 Nasal Parainfluen 4 PCR NOT DETECTED 05/25/22 20:31 Nasal RSV (PCR) NOT DETECTED 05/25/22 20:31 Nasal B.pertussis DNA PCR NOT DETECTED 05/25/22 20:31 Nasal C.pneumoniae (PCR) NOT DETECTED 05/25/22 20:31 [place] Human Metapneumo PCR NOT DETECTED 05/25/22 20:31 Nasal M.pneumoniae (PCR) NOT DETECTED 05/25/22 20:31 Nasal SARS-CoV-2 (PCR) NOT DETECTED 05/25/22 20:31 Urine Opiates Screen NEGATIVE (NEGATIVE) 05/25/22 18:59 Ur Oxycodone Screen POSITIVE (NEGATIVE) H 05/25/22 18:59 Urine Methadone Screen NEGATIVE (NEGATIVE) 05/25/22 18:59 Ur Propoxyphene Screen NEGATIVE (NEGATIVE) 05/25/22 18:59 Ur Barbiturates Screen NEGATIVE (NEGATIVE) 05/25/22 18:59 Ur Tricyclics Screen NEGATIVE (NEGATIVE) 05/25/22 18:59 Ur Phencyclidine Scrn NEGATIVE (NEGATIVE) 05/25/22 18:59 Ur Amphetamine Screen NEGATIVE (NEGATIVE) 05/25/22 18:59 U Methamphetamines Scrn NEGATIVE (NEGATIVE) 05/25/22 18:59 U Benzodiazepines Scrn NEGATIVE (NEGATIVE) 05/25/22 18:59 Urine Cocaine Screen NEGATIVE (NEGATIVE) 05/25/22 18:59 U Cannabinoids Screen NEGATIVE (NEGATIVE) 05/25/22 18:59
[2022-05-28] MEDS: DULoxetine 30 MG CAPSULE PO SCH (09:29)
[2022-05-28] MEDS: oxyCODONE ER 10 MG TABLET PO SCH ×2 (09:30→21:16)
[2022-05-28] MEDS: METOPROLOL SUCCINATE 50 MG TABLET PO SCH (09:30)
[2022-05-28] MEDS: cephALEXin 250 MG CAPSULE PO SCH ×4 (09:35→21:16)
[2022-05-28] MEDS: SACCHAROMYCES BOULARDII 250 MG CAPSULE PO SCH ×2 (09:35→16:47)
[2022-05-28 09:39] LABS: VANCOMYCIN,TROUGH 17.3 ug/mL (10.0-20.0)
[2022-05-28] MEDS: MULTIVITAMIN W/MINERALS TABLET PO SCH (15:32)
[2022-05-29] MEDS: ACETAMINOPHEN 325 MG TABLET PO PRN ×3 (01:06→21:03)
[2022-05-29] MEDS: oxyCODONE 5 MG TABLET PO PRN ×4 (01:06→21:03)
[2022-05-29] MEDS: SODIUM CHLORIDE 0.9% 1,000 ML IV SCH (03:52)
[2022-05-29 05:19] LABS: BASOPHILS # (AUTO) 0.1 10^3/uL (0.0-0.1); BASOPHILS % (AUTO) 0.9 %; EOSINOPHILS # (AUTO) 0.5 10^3/uL (0.0-0.7); HCT - HEMATOCRIT 37.7 % (42.0-52.0); HGB - HEMOGLOBIN 11.6 g/dL (14.0-18.0); LYMPHOCYTES # (AUTO) 1.2 10^3/uL (1.5-3.5); LYMPHOCYTES % (AUTO) 21.1 %; MEAN CORPUSCULAR HEMOGLOBIN 27.8 pg (27.0-31.0); MEAN CORPUSCULAR HGB CONC 30.8 g/dL (32.0-36.0); MEAN CORPUSCULAR VOLUME 90.2 fL (80.0-94.0); MEAN PLATELET VOLUME 12.5 fL (7.4-11.4); MONOCYTES # (AUTO) 0.6 10^3/uL (0.0-1.0); MONOCYTES % (AUTO) 9.7 %; NEUTROPHILS # (AUTO) 3.5 10^3/uL (1.5-6.6); PLT - PLATELET COUNT 221 10^3/uL (130-450); RED BLOOD COUNT 4.18 10^6/uL (4.70-6.10); RED CELL DISTRIBUTION WIDTH 17.1 % (12.0-15.0); WHITE BLOOD COUNT 5.9 x10^3/uL (4.8-10.8)
[2022-05-29 05:28] LABS: CALCIUM 8.5 mg/dL (8.5-10.3); CREATININE 0.7 mg/dL (0.6-1.2); POTASSIUM 3.8 mmol/L (3.5-5.0)
[2022-05-29] MEDS: PREGABALIN 100 MG CAPSULE PO SCH ×2 (05:53→17:03)
[2022-05-29] MEDS: BACLOFEN 10 MG TABLET PO SCH ×3 (05:53→21:03)
[2022-05-29] MEDS: SACCHAROMYCES BOULARDII 250 MG CAPSULE PO SCH ×2 (07:51→17:03)
[2022-05-29] MEDS: MULTIVITAMIN W/MINERALS TABLET PO SCH (07:51)
[2022-05-29] MEDS: cephALEXin 250 MG CAPSULE PO SCH ×4 (09:17→20:17)
[2022-05-29] MEDS: DULoxetine 30 MG CAPSULE PO SCH (09:17)
[2022-05-29] MEDS: METOPROLOL SUCCINATE 50 MG TABLET PO SCH (09:17)
[2022-05-29] MEDS: oxyCODONE ER 10 MG TABLET PO SCH ×2 (09:18→20:17)
[2022-05-29] MEDS: polyethylene glycoL 3350 17 GM PACKET PO SCH (09:19)
[2022-05-29] MEDS: SODIUM CHLORIDE FLUSH 0.9% 10 ML SYRINGE IVP SCH ×3 (09:19→23:43)
--- NOTE | 2022-05-29 14:25 | PROVIDER PROGRESS NOTE ---
Subjective - Prog Note Date Prog Note Date: 05/29/22 Prog Note Time: 14:22 - Subjective Subjective: Tired. Sitting up in chair eating breakfast this morning and lunch. Sacrum and hips ache from sitting. But denies any fever, chills, nausea. Current Medications - Current Medications Current Medications: Active Medications Acetaminophen (Acetaminophen 325 Mg Tablet) 650 mg PO Q6HR PRN PRN Reason: PAIN Last Admin: 05/29/22 14:22 Dose: 650 mg Baclofen (Baclofen 10 Mg Tablet) 10 mg PO TID [facility] Last Admin: 05/29/22 14:20 Dose: 10 mg Cephalexin (Cephalexin 250 Mg Capsule) 500 mg PO QID [facility] Last Admin: 05/29/22 14:19 Dose: 500 mg Duloxetine HCl (Duloxetine 30 Mg Capsule) 60 mg PO DAILY [facility] Last Admin: 05/29/22 09:17 Dose: 60 mg Metoprolol Succinate (Metoprolol Succinate 50 Mg Tablet) 50 mg PO DAILY [facility] Last Admin: 05/29/22 09:17 Dose: 50 mg Multivitamins/Minerals (Multivitamin W/Minerals Tablet) 1 tab PO DAILYWM [facility] Last Admin: 05/29/22 07:51 Dose: 1 tab Ondansetron HCl (Ondansetron 4 Mg/2 Ml Vial) 4 mg IVP Q6HR PRN PRN Reason: Nausea / Vomiting Oxycodone HCl (Oxycodone 5 Mg Tablet) 5 mg PO Q6HR PRN PRN Reason: PAIN Last Admin: 05/29/22 14:20 Dose: 5 mg Oxycodone HCl (Oxycodone Er 10 Mg Tablet) 10 mg PO BID [facility] Last Admin: 05/29/22 09:18 Dose: 10 mg Polyethylene Glycol (Polyethylene Glycol 3350 17 Gm Packet) 17 gm PO DAILY [facility] Last Admin: 05/29/22 09:19 Dose: 17 gm Pregabalin (Pregabalin 100 Mg Capsule) 300 mg PO BID@0600,1800 [facility] Last Admin: 05/29/22 05:53 Dose: 300 mg Saccharomyces Boulardii (Saccharomyces Boulardii 250 Mg Capsule) 250 mg PO BIDWM [facility] Last Admin: 05/29/22 07:51 Dose: 250 mg Sodium Chloride (Sodium Chloride Flush 0.9% 10 Ml Syringe) 10 ml IVP PRN PRN PRN Reason: NEEDED PER PROVIDER ORDERS Sodium Chloride (Sodium Chloride Flush 0.9% 10 Ml Syringe) 10 ml IVP 0100,0900,1700 JOB Last Admin: 05/29/22 09:19 Dose: Not Given Pregabalin [Lyrica] 300 mg PO BID 08/02/21 Baclofen [Lioresal] 10 mg PO TID 05/26/22 Duloxetine HCl [Cymbalta] 60 mg PO DAILY 05/26/22 Metoprolol Tartrate [Lopressor] 50 mg PO BIDWM 05/26/22 Oxycodone Myristate [Xtampza ER] 9 mg PO TID 05/26/22 oxyCODONE [Roxicodone] 5 mg PO Q8H PRN 05/26/22 Objective - Vital Signs/Intake & Output Reviewed Vital Signs: Yes Vital Signs: Vital Signs x48h Temp Pulse Resp BP Pulse Ox 05/29/22 07:08 37.1 C 84 16 135/91 H 96 Intake & Output: Intake & Output 05/26/22 05/27/22 05/28/22 05/29/22 23:59 23:59 23:59 23:59 Intake Total 5155 6337.000 6416.667 4760 Output Total 3050 7700 9275 3600 Balance 2105 -1363.000 -2858.333 1160 - Objective General Appearance: positive: No acute distress, Alert, Other (Pale cachectic white male at 6 foot tall and 74 kg) Eyes Bilateral: positive: PERRL, EOMI ENT: positive: No signs of dehydration, Other (Temporal wasting, sunken in cheekbones) Neck: positive: No JVD. negative: Stiff neck Respiratory: positive: No respiratory distress. negative: Wheezes, Rales, Rhonchi Cardiovascular: positive: Regular rate & rhythm Abdomen: positive: Non-tender, No organomegaly, Nml bowel sounds, Other (Glvoer draining cloudy yellow urine) Skin: positive: Warm, Dry, Other (Stage III L gluteal decub @ cleft, No redness. clear serous drainage, yellowish edges.Scaling skin of feet/legs. Onycho mycosis of toes. L third toe nail macerated. Red nonulcerated R lateral malleoli. L distal tib-fib with excoriation. Left distal quadriceps/upp knee with a hole in it) Extremities: positive: No pedal edema Neurologic/Psychiatric: positive: Oriented x3, CN's nml (2-12). negative: Motor nml (Paraplegic legs.), Mood/affect nml (withdrawn and muted) - Lab Results Fish Bones: 05/29/22 04:56 05/29/22 04:56 Other Labs: Lab Results x24hrs 05/29/22 05/29/22 Range/Units 04:56 04:56 WBC 5.9 (4.8-10.8) x10^3/uL RBC 4.18 L (4.70-6.10) 10^6/uL Hgb 11.6 L (14.0-18.0) g/dL Hct 37.7 L (42.0-52.0) % MCV 90.2 (80.0-94.0) fL MCH 27.8 (27.0-31.0) pg MCHC 30.8 L (32.0-36.0) g/dL RDW 17.1 H (12.0-15.0) % Plt Count 221 (130-450) 10^3/uL MPV 12.5 H (7.4-11.4) fL Neut # (Auto) 3.5 (1.5-6.6) 10^3/uL Lymph # (Auto) 1.2 L (1.5-3.5) 10^3/uL Chambers # (Auto) 0.6 (0.0-1.0) 10^3/uL Eos # (Auto) 0.5 (0.0-0.7) 10^3/uL Baso # (Auto) 0.1 (0.0-0.1) 10^3/uL Absolute Nucleated RBC 0.00 x10^3/uL Nucleated RBC % 0.0 /100WBC Sodium 138 (135-145) mmol/L Potassium 3.8 (3.5-5.0) mmol/L Chloride 100 L (101-111) mmol/L Carbon Dioxide 30 (21-32) mmol/L Anion Gap 8.0 (6-13) BUN 13 (6-20) mg/dL Creatinine 0.7 (0.6-1.2) mg/dL Estimated GFR (MDRD) 122 (>89) Glucose 148 H (70-100) mg/dL Calcium 8.5 (8.5-10.3) mg/dL ABX Reporting Has patient been on IV antibiotics over the past 48 hours?: No Assessment/Plan - Problem List (1) Emphysematous pyelitis Impression: Assessment/Plan: Small amounts of air was seen near the R renal pelvis,consistent with emphysematous pyelitis. Stranding of bilateral proximal ureters was seen by CT abdomen pelvis. Bacteria ID with E. coli. Changed to Keflex May 28. Today day #5/14 for antibiotics.Yesterday's temp was 36.7. Today he is 37.2, 37.1. Blood pressure stable. Pulse stable. Plan for discharge tomorrow If his temperature does not get any higher. Would like to monitor that temperature since it went from 36 to 37 when he was changed to p.o. antibiotics. (2) E coli UTI Assessment/plan: Identification is come back showing E. coli, there are some antibiotics is resistant to but is sensitive to ceftriaxone. Ceftriaxone discontinued May 28. On oral Ancef 500 4 times daily. Will plan a 14-day total course of antibiotics (3) Right hydronephrosis Assessment/plan: Noted on imaging CT. (4) Bilateral ureteral calculi Assessment/plan: Noted on imaging CT abdomen pelvis and these are stable and chronic. He has bilateral ureteral stents. Those were due to be changed on the day of admission. Urology at [facility] is aware that he is here. They will follow-up with him in the outpatient setting. (5) Paraplegia Assessment/plan: He has weakness from the lower waist down he says. 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 He does get muscle spasms and his home meds will be reordered (6) Chronic indwelling glover catheter Assessment/plan: Chronic, due to neurogenic bladder Continue with Glover care. A new Glover was re-inserted in the ED, when he presented for this admission. (7) Sacral decubitus ulcer Assessment/plan: This is a chronic problem, suspect he is supine in bed alot. He says his changes the dressing daily, and he gets put in a chair with 2-person assistance, he is usually able to operate a wheelchair and can even take ParaTransport, he said. Many pressure wounds are noted, documented in pictures, and were present at admission. These could have been another source of infection and caused AMS. Per [employer]PER[employer]OR, an APS report has been submitted, because possibly the is not doing adequate wound care at home. She is his caregiver, with help from the 's boyfriend as noted by . Wound consult was ordered by the Telemedicine admitting doctor. MAC was called May 28. Domi Donato of wound services is not available till Saturday of this week. Today is Saturday. Unfortunately the patient may need to be discharged and return for outpatient appointment. Hospitalist on service spoke to Dr. Flores May 28, she is on consult for General Surgery for this week, and she advised that [facility] wound clinic should see him and only if they need sharp debridement, they would call her to debride him in the OR PT and OT have been ordered to work with him. (8) Hypokalemia Assessment/plan: Likely related to poor p.o. intake over the 4 to 5 days that he was somnolent. Replaced. Hypokalemia resolved since May 27 Follow BMP daily (9) HTN Assessment/plan: His BP has been very elevated since presentation. His medication list shows that he takes beta-marty Metoprolol tartrate has been changed to succinate for longer-term effect. Hydralazine added since blood pressure is poorly controlled. Today's blood pressure is 132-156 systolic. Diastolic is 85 and as high as 106. (10) AMS resolved Assessment/plan: Pt is awake, communicating and back to his baseline by the first morning of admission, 05/26
[2022-05-30 05:18] LABS: BASOPHILS # (AUTO) 0.1 10^3/uL (0.0-0.1); EOSINOPHILS # (AUTO) 0.4 10^3/uL (0.0-0.7); EOSINOPHILS % (AUTO) 8.7 %; HCT - HEMATOCRIT 40.6 % (42.0-52.0); HGB - HEMOGLOBIN 12.3 g/dL (14.0-18.0); LYMPHOCYTES # (AUTO) 1.3 10^3/uL (1.5-3.5); LYMPHOCYTES % (AUTO) 26.6 %; MEAN CORPUSCULAR HEMOGLOBIN 27.6 pg (27.0-31.0); MEAN CORPUSCULAR HGB CONC 30.3 g/dL (32.0-36.0); MEAN CORPUSCULAR VOLUME 91.2 fL (80.0-94.0); MEAN PLATELET VOLUME 12.4 fL (7.4-11.4); MONOCYTES # (AUTO) 0.5 10^3/uL (0.0-1.0); MONOCYTES % (AUTO) 10.5 %; NEUTROPHILS # (AUTO) 2.6 10^3/uL (1.5-6.6); NEUTROPHILS % (AUTO) 52.6 %; PLT - PLATELET COUNT 241 10^3/uL (130-450); RED BLOOD COUNT 4.45 10^6/uL (4.70-6.10); RED CELL DISTRIBUTION WIDTH 17.5 % (12.0-15.0)
[2022-05-30 05:29] LABS: CREATININE 0.9 mg/dL (0.6-1.2); POTASSIUM 4.2 mmol/L (3.5-5.0)
[2022-05-30] MEDS: PREGABALIN 100 MG CAPSULE PO SCH (05:35)
[2022-05-30] MEDS: oxyCODONE 5 MG TABLET PO PRN ×2 (05:35→15:24)
[2022-05-30] MEDS: ACETAMINOPHEN 325 MG TABLET PO PRN ×2 (05:36→11:35)
[2022-05-30] MEDS: BACLOFEN 10 MG TABLET PO SCH ×2 (05:36→15:17)
[2022-05-30] MEDS: cephALEXin 250 MG CAPSULE PO SCH ×2 (08:08→15:17)
[2022-05-30] MEDS: METOPROLOL SUCCINATE 50 MG TABLET PO SCH (08:08)
[2022-05-30] MEDS: SACCHAROMYCES BOULARDII 250 MG CAPSULE PO SCH (08:08)
[2022-05-30] MEDS: MULTIVITAMIN W/MINERALS TABLET PO SCH (08:08)
[2022-05-30] MEDS: oxyCODONE ER 10 MG TABLET PO SCH (08:08)
[2022-05-30] MEDS: DULoxetine 30 MG CAPSULE PO SCH (08:09)
[2022-05-30] MEDS: SODIUM CHLORIDE FLUSH 0.9% 10 ML SYRINGE IVP SCH ×2 (08:10→15:24)
[2022-05-30] MEDS: polyethylene glycoL 3350 17 GM PACKET PO SCH (08:12)
[2022-05-30] MEDS ORDERED: DOCUSATE SODIUM 250 MG CAPSULE PO SCH (09:00)
--- NOTE | 2022-05-30 09:27 | Discharge Plan ---
Discharge Plan Problem Reviewed?: Yes Disposition: Home Health Service Condition: Fair Prescriptions: cephALEXin [Keflex] 500 mg PO QID #72 cap Diet: Regular Activity Restrictions: Activity as Tolerated Shower Restrictions: No Driving Restrictions: Yes (no driving) Assistance Devices: Wheelchair Health Concerns: You have a past medical history of paraplegia from schwannoma compression of the spinal cord in your lower spine. This is left you with a neurogenic bladder and a chronic indwelling Bowling catheter. You left your jail because you really miss being home but since that time your skin is started to breakdown and you have numerous pressure ulcers on your buttock, and sides of your ankles, and shins. You came to the emergency room because you were confused, not yourself and we found you to have a severe urinary tract infection from your chronic indwelling Bowling catheter. The bacteria identified is E. coli. Plan of Treatment: 1. You were started on IV antibiotic therapy and then switched over to oral antibiotics once we knew which bacteria was. You will need approximately 9 more days of antibiotic therapy and will go home on Keflex capsules, 250 mg. 2 capsules 4 times a day. 2. Take a probiotic twice a day while you are on antibiotics 3. You have asked for additional narcotic medication at discharge. I am giving you 3 to 4 days. I have spoken to your primary care provider Sheron García. Her office does not provide you with opioids. You will need to follow-up with your chronic pain management clinic that provides you with long-acting and short acting opioids. 4. Please see Sheron García in the next 2 weeks. 5. I will be sending you home with home health nursing to help you with wound care, and follow-up of healing of the ulcers that you presented with on admission. They will also need to follow-up on the changing of your Bowling catheter. Care Goals: Right now you are in a state of limbo. You know that you probably will need to return to a jail but are reluctant to do so. It looks like you are not getting enough adequate skin care at home and you have skin breakdown because of it. I will be asking for a trapeze for her hospital bed at home. And you and your family will decide when is time for her to go back to the jail. Right now the goal is to get you through this skin healing of your ulcers and to treat your infection. Assessment: Patient understands care goals. Is sad. Promises to follow through. Follow-Up Care: Home Health - RN, Home Health - PT, Home Health - OT No Smoking: If you smoke, Please STOP! Call for help. Follow-up with: Danika García PA-C [Primary Care Provider] -
--- NOTE | 2022-05-30 10:53 | DISCHARGE SUMMARY ---
"Discharge Summary Admit Date: 05/25/22 Discharge Date: 05/30/22 Discharging Provider: Va Blanco MD Primary Care Provider: JEFFREY Smiley Code Status: Attempt Resuscitation Condition at Discharge: Fair Discharge Disposition: [facility] - DIAGNOSES Discharge Diagnoses with Status of Each Condition: 1. Acute metabolic encephalopathy, present on admission and resolved 2. Emphysematous pyelitis, present on admission and resolved 3. E. coli UTI, present on admission and resolved 4. Chronic right hydronephrosis 5. Bilateral ureteral stents in place 6. Bilateral ureteral calculi 7. Paraplegia of lower extremities 8. Chronic indwelling Glover catheter 9. Multiple decubitus ulcers, present on admission: Left distal quadriceps with granulating healing ulcer, stage 2 left lateral thigh, stage 2 left medial thigh where Glover catheter lay on top stage 1 left distal licona stage 3 left ischial tuberosity stage 2-3 left gluteal cleft 10. Bilateral pressure changes of lateral malleoli, present on admission 11. Hypokalemia 12. Hypertension 13. Chronic pain syndrome - HPI History of Present Illness: 47 y old male with PMH thoracic and lumbar Schwanomma , Paraplegia, Renal calcul i, B/L Ureteral stents, Neurogenic bladder s/p Chronic indewelling Glover BIBA due toworsening confusion and foul swelling urine for last 4-5 days. Pt is confused so most of history is from ER physican and record. Apparently patient was supposed to follow up with Urology but he missed appointments. No H/O fever. Pt denies PAREKH, chest pain, SOB, nausea, vomiting or abdominal pain. On presentaion, pt was afebrile. BP accelerated. Labs showed nornal WAB, K 3.4 Lactic acid normal UA showed positive leukocytes, RBC TNTC and WBC 15-20 CT head showed no acute abnormalities CT abdomen/pelvis showed B/L non-obstructing calculi, b/l ureteral stents,glover and mild right hydronephrosis. As per ER physician, Dr Aguilar , he has discussed with Urologist space control supervisor who suggested that patient does not need to be transferred and recommened IV ABX . Pt is being admittted duo to AMS, Confusion, acute encephalopathy, Acute pyelonephritis, hypokalemia, decubitus ulcer in buttock area - Past Medical History Cardiovascular: reports: Murmur, Other Respiratory: reports: Asthma Neuro: reports: None Endocrine/Autoimmune: reports: None GI: reports: Chronic constipation : reports: Incontinence HEENT: reports: None Psych: reports: Depression Musculoskeletal: reports: Chronic back pain, Other Derm: reports: Other MRSA Hx?: Yes - Past Surgical History General: reports: Gastric surgery Ortho: reports: Spine surgery HEENT: reports: Tonsil/Adenoidectomy - CONSULTS | PROCEDURES Procedures: Abdomen pelvis CT with mild right hydronephrosis. Small foci of gas seen within the right renal pelvis. Mild stranding about the proximal ureters. Bilateral double-J ureteral stents. Small nonobstructing kidney stones. No free fluid in the abdomen or pelvis. Pyelonephritis difficult to exclude, and even though there is a small foci of gas, low suspicion for emphysematous pyelitis. Head CT with no acute intracranial abnormality Urine culture with E. coli Blood culture negative after 2 days - HOSPITAL COURSE Hospital Course: The patient was discharged from a intermediate facility in March. He has a lumbar schwannoma that has caused paralysis from the waist down with paraplegia and a resultant neurogenic bladder, renal calculi, and ureteral stents. He has a chronic indwelling Glover catheter. Since being home he has not done well. He states that his is not strong enough to take care of him physically. He has not been eating very much and has lost a lot of weight. His children argue about who is going to take care of him. It is his 's boyfriend that is been doing the major physical work of taking care of him. When he was discharged from the intermediate facility he was able to use a bed trapeze, but his hospital bed at home does not have 1. He is not able to reposition himself and will lay in the same position for many hours. When [facility] he did not have any decubitus ulcers or if he did he said they were on their way to healing or being completely healed. He presented to our emergency room with altered mental status due to UTI. His Glover was changed, he was started on IV antibiotics, and treatment was for E. coli. He woke up within a day of being in the hospital. E. coli is resistant to ampicillin and Unasyn but sensitive to ceftriaxone, and quinolones. There was a question of emphysematous pyelitis seen on CT and he was treated as such. He was supposed to have had his ureteral stents replaced at [facility] with his Urologist but missed an appointment while he was in the hospital because he was here sick. The ER did contact that urologist and they did not feel that he needed to be transferred for this and could reschedule in the outpatient s etting. Multiple decubitus ulcers were noted on the top of the distal left quadriceps, stage II left lateral thigh, stage II left medial thigh with a Glover catheter lay on top of his thigh, stage I left distal licona, stage III left ischial tuberosity. Dried dressing was embedded with in the wound and had to be wiped down and pulled out. He also has a stage II-III left gluteal cleft ulcer. He was starting to develop bilateral malleolar eye red changes but no skin breakdown. All of these were present on admission and taken care of while he was here. Hypokalemia was supplemented, and he was started on a new blood pressure medicine because of hypertension. At discharge the patient asked for renewal of his opioid medications. I discussed the case with his primary care provider and that office does not do opioid prescriptions. He states that when he left the [facility] he was on oxycodone Myristate/Xtampza ER sprinkles, 3 times a day as well as 5 mg oxycodone tablets every 8 hours as needed. He ran out of those in mid April and has not had any opioid since then and has been using Tylenol [id number]. Yet when I run his prescription patterns through his insurance plan, he was last prescribed oxycodone IR on May 09 and 1, 42 tablets each. And his OxyContin extended release was 60 tablets each on May 01 and April 09. He has an appointment with the [facility] pain clinic on June 07. I explained that I will be able to send him home on short acting oxycodone, no more than 30 tablets. While here he did get opioids. He was on oxycodone 5 mg every 6 hours and OxyContin 10 mg p.o. twice daily. He was also receiving senna, Dulcolax, Colace without a bowel movement. His metabolic encephalopathy has resolved. He received wound care, IV fluids, IV hydration and was seen by nutrition services because of the malnutrition seen on his physical exam. He is now discharged with a new Glover and to complete antibiotic therapy with Keflex for the next 9 days. He is being sent home with home health: RN for wounds, Bath aide, PT, OT, social work. Adult Protective Services referral has been sent. He is now starting to realize that going home may have been a mistake since he is not getting the support he needs from his , 's boyfriend or his children. I have suggested that he discuss this with social work home health to see if he should be placed back in a long-term care facility. At discharge temperature is 36.7. Heart rate 76. Blood pressure 136/83. Respirations 16. 96% on room air. He is 6 foot tall and weighs 74.84 kg. In spite of his weight he still appears gaunt with bilateral temporal wasting, high cheekbones, loss of body mass in legs and arms. Neck is supple with shotty adenopathy. Lungs have diminished breath sounds at the bases and are otherwise clear without acute respiratory distress. PMI is normally placed with a regular rate and rhythm. The abdomen is soft, nontender and hypoactive bowel sounds. No distention. Positive flatus. Last bowel movement was May 25. He denies abdominal pain. I explained he really needs to be in a bowel protocol at home and may need an enema. Nursing is also clinical over some techniques that he may be able to use at home. He has a Glover catheter is draining cloudy yellow urine. He has paraplegia of his lower extremities. Mild nonpitting edema. Alert, oriented to person place and time. Greater than 30 minutes was spent coordinating discharge - ALLERGIES Allergies/Adverse Reactions: Allergies Allergy/AdvReac Type Severity Reaction Status Date / Time morphine Allergy Intermediate terrors Verified 05/25/22 16:10 gabapentin Allergy Unknown Verified 05/25/22 16:10 ibuprofen Allergy Unknown Verified 05/25/22 16:10 - MEDICATIONS Home Medications: Ambulatory Orders Medication Instructions Recorded Confirmed Pregabalin [Lyrica] 300 mg PO BID 08/02/21 05/26/22 Baclofen [Lioresal] 10 mg PO TID 05/26/22 05/26/22 Duloxetine HCl [Cymbalta] 60 mg PO DAILY 05/26/22 05/26/22 Metoprolol Tartrate [Lopressor] 50 mg PO BIDWM 05/26/22 05/26/22 Oxycodone Myristate [Xtampza ER] 9 mg PO TID 05/26/22 05/26/22 oxyCODONE [Roxicodone] 5 mg PO Q8H PRN 05/26/22 05/26/22 cephALEXin [Keflex] 500 mg PO QID #72 cap 05/30/22 oxyCODONE [Roxicodone] 5 mg PO Q6H PRN #30 tablet 05/30/22 - LABS Result Diagrams: 05/30/22 05:00 05/30/22 05:00"
[2022-05-30 16:40] VITALS: BP 127/86
== END 2022-05-30 16:35 | disposition home health service (06) | DRG 70 ==
LOC: EDUNIT# → ED 15:57 → MS2 20:55
PROVIDERS: ADMIT Internal Medicine; ATTEND Specialist
DX: N12 Tubulo-interstitial nephritis, not specified as acute or chronic (principal); G93.41 Metabolic encephalopathy; L89.323 Pressure ulcer of left buttock, stage 3; F17.200 Nicotine dependence, unspecified, uncomplicated; G82.20 Paraplegia, unspecified; T83.031A Leakage of indwelling urethral catheter, initial encounter; T83.511A Infection and inflammatory reaction due to indwelling urethral catheter, initial encounter; S81.802A Unspecified open wound, left lower leg, initial encounter; S81.801A Unspecified open wound, right lower leg, initial encounter; N13.30 Unspecified hydronephrosis; Z20.822 Contact with and (suspected) exposure to COVID-19; N13.6 Pyonephrosis; G82.21 Paraplegia, complete; L89.892 Pressure ulcer of other site, stage 2; E87.6 Hypokalemia; I10 Essential (primary) hypertension; G89.4 Chronic pain syndrome; D36.17 Benign neoplasm of peripheral nerves and autonomic nervous system of trunk, unspecified; D36.14 Benign neoplasm of peripheral nerves and autonomic nervous system of thorax; N31.9 Neuromuscular dysfunction of bladder, unspecified; M54.9 Dorsalgia, unspecified; B96.20 Unspecified Escherichia coli [E. coli] as the cause of diseases classified elsewhere; K59.09 Other constipation; R12 Heartburn; B35.1 Tinea unguium; S90.512A Abrasion, left ankle, initial encounter; Z79.899 Other long term (current) drug therapy; Z88.5 Allergy status to narcotic agent; Z88.6 Allergy status to analgesic agent; Z88.8 Allergy status to other drugs, medicaments and biological substances; Z91.199 Patient's noncompliance with other medical treatment and regimen due to unspecified reason; Z96.0 Presence of urogenital implants
CPT/HCPCS: 36415; 51702; 70450; 74176; 80048; 80053; 80202; 80306; 81001; 83605; 83735; 85025; 87040; 87086; 87181; 87633; 96365; 97162; 97165; 97530; 97535; 99285; A9270; J3370; 81003

== ENCOUNTER 2022-06-11 12:56 | Outpatient (CLI) | payer MEDICARE, MEDICAID | END 2022-06-11 12:57 | disposition critical access hospital (66) | LOC: EMS 12:56 | DX: M54.50 Low back pain, unspecified (principal); N20.0 Calculus of kidney | CPT/HCPCS: A0425; A0429 ==

== ENCOUNTER 2022-06-11 13:24 | Emergency (ER) | payer MEDICARE, MEDICAID ==
--- NOTE | 2022-06-11 13:46 | ED Physician Documentation ---
PD HPI BACK PAIN - Stated complaint Stated Complaint: BI LAT FLANK PX - Chief complaint Chief Complaint: Abd Pain - History obtained from History obtained from: Patient - History of Present Illness Timing - onset: How many days ago (2-3) Timing - duration: Days (2-3) Timing - details: Gradual onset, Still present (much worse today) Location: Mid (flank area bilaterally), Lower, Right, Left Quality: Pain, Aching Associated symptoms: Other (indwelling glover with prior kidney infections that he says feels similar.). No: Fever Improves with: No: Rest, Meds (tylenol at home.) Worsened by: Movement Contributing factors: No: Trauma Similar symptoms before: Diagnosis (He states this feels similar to kidney infections he has had with the most recent being about 2-1/2 weeks ago for which she was hospitalized for 5 days and treated with cephalosporins (Rocephin in the hospital and Keflex at home). He had felt better for 2 weeks and now symptoms again.) Recently seen: Admitted (2 1/2 weeks ago) Review of Systems Constitutional: reports: Chills, Myalgias Nose: denies: Rhinorrhea / runny nose, Congestion Throat: denies: Sore throat Respiratory: denies: Cough GI: reports: Nausea. denies: Abdominal Pain, Diarrhea : reports: Other (indwelling glover with cloudiness) Neurologic: reports: Generalized weakness (in addition to his chronic paraplegia.). 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) Endocrine/Autoimmune: None GI: Chronic constipation : Incontinence HEENT: None Psych: Depression Musculoskeletal: Chronic back pain, Other Derm: Other - Past Surgical History Past Surgical History: Yes General: Gastric surgery Ortho: Spine surgery HEENT: Tonsil/Adenoidectomy - Present Medications Home Medications: Ambulatory Orders Medication Instructions Recorded Confirmed Pregabalin [Lyrica] 300 mg PO BID 08/02/21 05/26/22 Baclofen [Lioresal] 10 mg PO TID 05/26/22 05/26/22 Duloxetine HCl [Cymbalta] 60 mg PO DAILY 05/26/22 05/26/22 Metoprolol Tartrate [Lopressor] 50 mg PO BIDWM 05/26/22 05/26/22 Oxycodone Myristate [Xtampza ER] 9 mg PO TID 05/26/22 05/26/22 oxyCODONE [Roxicodone] 5 mg PO Q8H PRN 05/26/22 05/26/22 cephALEXin [Keflex] 500 mg PO QID #72 cap 05/30/22 oxyCODONE [Roxicodone] 5 mg PO Q6H PRN #30 tablet 05/30/22 Acetaminophen [Acetaminophen Extra 500 mg PO QID PRN #40 tablet 06/11/22 Strength] Ondansetron Odt [Zofran] 4 mg TL Q6H PRN #10 tablet 06/11/22 levoFLOXacin [Levaquin] 250 mg PO QD 10 Days #10 tablet 06/11/22 oxyCODONE [Roxicodone] 5 mg PO Q6H PRN #20 tablet 06/11/22 - Allergies Allergies/Adverse Reactions: Allergies Allergy/AdvReac Type Severity Reaction Status Date / Time morphine Allergy Intermediate terrors Verified 05/25/22 16:10 gabapentin Allergy Unknown Verified 05/25/22 16:10 ibuprofen Allergy Unknown Verified 05/25/22 16:10 - Social History Does the pt smoke?: Yes Smoking Status: Never smoker Does the pt drink ETOH?: Yes Does the pt have substance abuse?: No - Immunizations Immunizations are current?: Yes - POLST Patient has POLST: No PD ED PE NORMAL - Vitals Vital signs reviewed: Yes - General General: Alert and oriented X 3, Well developed/nourished - Abdomen Abdomen: Soft, Non distended, No organomegaly, Other (Tenderness in the suprapubic to mid abdomen with some local guarding but no percussion or rebound tenderness. Bowel sounds are diminished.) - Male Male : Other (Glover catheter in place and draining. No penile sores.) - Rectal Rectal: Deferred - Back Back: Other (He does have moderate CVA tenderness on both sides, particularly on the left.) - Derm Derm: Normal color, Warm and dry - Extremities Extremities: Other (Atrophy of the muscle of both lower extremities. No edema nor calf tightness noted.) - Neuro Neuro: Alert and oriented X 3, Normal speech - Psych Psych: Normal mood Results - Vitals Vitals: Vital Signs - 24 hr 10/24/22 10/24/22 10/24/22 13:32 14:40 15:00 Temperature 37.8 C Heart Rate 137 H 122 H 126 H Respiratory 22 18 18 Rate Blood Pressure 128/89 H 120/88 H 148/100 H O2 Saturation 99 100 98 06/11/22 06/11/22 06/11/22 16:00 17:00 18:00 Temperature 36.5 C Heart Rate 140 H 120 H 118 H Respiratory 12 12 14 Rate Blood Pressure 135/100 H 130/90 H 131/93 H O2 Saturation 98 100 100 Oxygen O2 Source Room air - Labs Labs: Laboratory Tests 06/11/22 06/11/22 06/11/22 13:58 13:58 15:14 WBC 18.0 H RBC 5.76 Hgb 15.6 Hct 50.0 MCV 86.8 MCH 27.1 MCHC 31.2 L RDW 17.1 H Plt Count 316 MPV 12.4 H Neut # (Auto) Not Reportable Lymph # (Auto) Not Reportable [place] # (Auto) Not Reportable Eos # (Auto) Not Reportable Baso # (Auto) Not Reportable Absolute Nucleated RBC Not Reportable Total Counted 100 Band Neuts % (Manual) 2 Reactive Lymphs % (Man) 1 Abnorm Lymph % (Manual) 0 Nucleated RBC % Not Reportable Neutrophils # (Manual) 16.7 H Lymphocytes # (Manual) 1.1 L Monocytes # (Manual) 0.2 Eosinophils # (Manual) 0.0 Basophils # (Manual) 0.0 Differential Comment MANUAL DIFFERENTIAL Sodium 136 Potassium 3.7 Chloride 97 L Carbon Dioxide 25 Anion Gap 14.0 H BUN 18 Creatinine 0.9 Estimated GFR (MDRD) 91 Glucose 132 H Lactic Acid Calcium 10.1 Total Bilirubin 0.7 AST 17 ALT 13 Alkaline Phosphatase 90 Total Protein 8.5 H Albumin 4.7 Globulin 3.8 Albumin/Globulin Ratio 1.2 Urine Color BROWN Urine Clarity CLOUDY Urine pH 6.0 Ur Specific [place] 1.025 Urine Protein 100 H Urine Glucose (UA) NEGATIVE Urine Ketones TRACE Urine Occult Blood LARGE H Urine Nitrite POSITIVE H Urine Bilirubin NEGATIVE Urine Urobilinogen 1 (NORMAL) Ur Leukocyte Esterase MODERATE H Urine RBC TNTC H Urine WBC 11-25 H Ur Squamous Epith Cells NONE SEEN Urine Bacteria Many H Urine Culture Comments INDICATED 06/11/22 15:23 WBC RBC Hgb Hct MCV MCH MCHC RDW Plt Count MPV Neut # (Auto) Lymph # (Auto) [place] # (Auto) Eos # (Auto) Baso # (Auto) Absolute Nucleated RBC Total Counted Band Neuts % (Manual) Reactive Lymphs % (Man) Abnorm Lymph % (Manual) Nucleated RBC % Neutrophils # (Manual) Lymphocytes # (Manual) Monocytes # (Manual) Eosinophils # (Manual) Basophils # (Manual) Differential Comment Sodium Potassium Chloride Carbon Dioxide Anion Gap BUN Creatinine Estimated GFR (MDRD) Glucose Lactic Acid 2.6 H Calcium Total Bilirubin AST ALT Alkaline Phosphatase Total Protein Albumin Globulin Albumin/Globulin Ratio Urine Color Urine Clarity Urine pH Ur Specific [place] Urine Protein Urine Glucose (UA) Urine Ketones Urine Occult Blood Urine Nitrite Urine Bilirubin Urine Urobilinogen Ur Leukocyte Esterase Urine RBC Urine WBC Ur Squamous Epith Cells Urine Bacteria Urine Culture Comments - Rads (name of study) abd/pelvic CT Radiology: Prelim report reviewed (chronic hydronephrosis. No stones. Stents in place. No other acute process. ), See rad report PD MEDICAL DECISION MAKING - ED course Complexity details: reviewed results, re-evaluated patient (He has received IV fluids. His pain is improved with some IV medications. Given a dose of Levaquin IV. He is still somewhat tachycardic at a sinus rhythm. He is able to drink fluids.), considered differential (Symptoms suggestive of recurrent pyelonephritis given flank pain, fevers feeling, elevated white count, tachycardia and a positive urine. He is tachycardic with white count and slightly elevated lactate. However clinically appears in awake and alert and not in distress. He prefers to go home. ), d/w patient Departure - Departure Disposition: 01 Home, Self Care Clinical Impression: Pyelonephritis, Tachycardia, Flank pain Condition: Stable Record reviewed to determine appropriate education?: Yes Instructions: ED UTI Pyelonephritis Male Follow-Up: Danika García PA-C [Primary Care Provider] - Prescriptions: Acetaminophen [Acetaminophen Extra Strength] 500 mg PO QID PRN #40 tablet PRN Reason: Pain levoFLOXacin [Levaquin] 250 mg PO QD 10 Days #10 tablet oxyCODONE [Roxicodone] 5 mg PO Q6H PRN #20 tablet PRN Reason: Pain Ondansetron Odt [Zofran] 4 mg TL Q6H PRN #10 tablet PRN Reason: Nausea / Vomiting Comments: By your symptoms and blood test and urine test, it does seem like you have a urinary tract/kidney infection. Your most recent treatment was with a cephalosporin so I am changing antibiotic category 2 quinolone called levofloxacin. Take the levofloxacin daily for the next 10 days. Ondansetron every 4-6 hours if needed for nausea. Stay well-hydrated. Tylenol 4 times daily regularly for pain. To that add oxycodone every 4-6 hours if needed. I sent your prescriptions to [facility] pharmacy. You do have some indicators of the infection affecting your system with an elevated white count, elevated heart rate and a slightly elevated lactate. However clinically you do not look too bad. See how you do at home but return to the ER if you have worsening symptoms of fever, vomiting, increased pain or other concerns or if you not improving well over the next 2 to 3 days. I am prescribing a short course of narcotic pain medication for you. These are potentially dangerous and addictive medications that should be used carefully. These medications may constipate you. Take an [id number] stool softener such as docusate twice daily with plenty of water while taking these medications. If you go 24 hours without a bowel movement, take [id number] MiraLAX, per package instructions. Do not drink or drive while taking these medications. If you received narcotic or sedating medications while in the emergency department do not drive for 24 hours. Store this medication in a safe, secure place and out of reach of children. It is a violation of federal law to give or sell this medication to another person or to use in a manner other than prescribed. The ED will not refill narcotic prescriptions, including prescriptions lost or stolen. You can dispose of unwanted medications at the [facility]'s office or at several pharmacies such as [facility].
[2022-06-11] MEDS ORDERED: HYDROmorphone 1 MG/ML CARPUJECT IVP STA ×2 (14:09→17:49)
[2022-06-11] MEDS ORDERED: SODIUM CHLORIDE 0.9% 1,000 ML IV STA ×2 (14:09→15:58)
[2022-06-11 14:10] LABS: BASOPHILS % (AUTO) 0.3 %; EOSINOPHILS % (AUTO) 39.7 %; HGB - HEMOGLOBIN 15.6 g/dL (14.0-18.0); LYMPHOCYTES % (AUTO) 4.2 %; MEAN CORPUSCULAR HEMOGLOBIN 27.1 pg (27.0-31.0); MEAN CORPUSCULAR HGB CONC 31.2 g/dL (32.0-36.0); MEAN CORPUSCULAR VOLUME 86.8 fL (80.0-94.0); MEAN PLATELET VOLUME 12.4 fL (7.4-11.4); MONOCYTES % (AUTO) 4.3 %; NEUTROPHILS % (AUTO) 51.2 %; PLT - PLATELET COUNT 316 10^3/uL (130-450); RED BLOOD COUNT 5.76 10^6/uL (4.70-6.10); RED CELL DISTRIBUTION WIDTH 17.1 % (12.0-15.0)
[2022-06-11 14:14] LABS: ABNORMAL LYMPHS % (MANUAL) 0 %
[2022-06-11 14:30] LABS: ALBUMIN 4.7 g/dL (3.2-5.5); ALBUMIN/GLOBULIN RATIO 1.2 (1.0-2.2); BILIRUBIN,TOTAL 0.7 mg/dL (0.2-1.0); CALCIUM 10.1 mg/dL (8.5-10.3); CREATININE 0.9 mg/dL (0.6-1.2); POTASSIUM 3.7 mmol/L (3.5-5.0); TOTAL PROTEIN 8.5 g/dL (6.7-8.2)
[2022-06-11 14:46] LABS: BAND NEUTROPHILS % (MANUAL) 2 %; LYMPHOCYTES # (MANUAL) 1.1 10^3/uL (1.5-3.5); LYMPHOCYTES % (MANUAL) 5 %; MONOCYTES # (MANUAL) 0.2 10^3/uL (0.0-1.0); NEUTROPHILS # (MANUAL) 16.7 10^3/uL (1.5-6.6); REACTIVE LYMPHS % (MANUAL) 1 %
[2022-06-11 14:47] LABS: DIFFERENTIAL COMMENT MANUAL DIFFERENTIAL
[2022-06-11 15:30] LABS: GLUCOSE, URINE (UA) NEGATIVE (NEGATIVE); KETONES,URINE (UA) TRACE mg/dL (NEGATIVE); LEUKOCYTE ESTERASE, URINE MODERATE (NEGATIVE); NITRITE,URINE POSITIVE (NEGATIVE); OCCULT BLOOD,URINE LARGE (NEGATIVE); PROTEIN,URINE 100 mg/dL (NEGATIVE); UROBILINOGEN,URINE 1 (NORMAL) E.U./dL (NORMAL)
[2022-06-11 15:40] LABS: BILIRUBIN,URINE NEGATIVE (NEGATIVE); CLARITY,URINE CLOUDY (CLEAR); ICTOTEST,URINE NEGATIVE
[2022-06-11 15:41] LABS: BACTERIA,URINE Many /HPF (None Seen); RBC,URINE TNTC /HPF (0-5); SQUAMOUS EPITHELIAL CELL,UR NONE SEEN (<= Few)
[2022-06-11] MEDS ORDERED: levoFLOXacin 750 MG/150 ML 750 MG/150 ML BAG IV STA (15:42)
[2022-06-11 15:43] LABS: LACTIC ACID, VENOUS 2.6 mmol/L (0.5-2.2)
--- NOTE | 2022-06-11 15:44 | CT Report ---
PROCEDURE: ABDOMEN/PELVIS WO INDICATIONS: flank pain, recent pyelo TECHNIQUE: Noncontrast 5 mm thick sections acquired from the diaphragms to the symphysis. 5 mm coronal and sagi ttal reformats were then performed. For radiation dose reduction, the following was used: automated exposure control, adjustment of mA and/or kV according to patient size. COMPARISON: 05/25/2022 CT abdomen and pelvis FINDINGS: Bilateral double-J ureteral stents. Proximal coiled portions are in appropriate position in the renal pelves. Distal coiled portions are also in appropriate position within the urinary bladder. Mild cir cumferential urinary bladder wall thickening. There is similar mild right hydronephrosis with new lef t hydronephrosis. Minimal inferior perinephric fat stranding is not significantly changed. No signifi cant change in right renal calculi. Large volume of formed stool in the rectum with and mild rectal wall thickening and perirectal fat st randing. Findings are suggestive of stercoral colitis. Enteric tract otherwise normal. Remaining abdo sil and pelvic visceral structures demonstrate no additional acute finding. IMPRESSION: Bilateral double-J ureteral stents in similar and expected position. New mild left hydronephrosis. Unchanged mild right hydronephrosis. Mild circumferential urinary bladder wall thickening, potentially cystitis versus mechanical inflamma tion response to the presence of double-J ureteral stents. Large volume rectal stool with suspected stercoral colitis. Reviewed by: Stanton Espino MD on 06/11/2022 3:42 PM PDT Approved by: Stanton Espino MD on 06/11/2022 3:42 PM PDT Station ID: [id number]
[2022-06-11] MEDS ORDERED: ACETAMINOPHEN 325 MG TABLET PO STA (17:49)
[2022-06-11 18:33] VITALS: BP 131/91
== END 2022-06-11 18:41 | disposition home or self-care (01) ==
LOC: EDUNIT# → ED 13:24
DX: N12 Tubulo-interstitial nephritis, not specified as acute or chronic (principal); R00.2 Palpitations
CPT/HCPCS: 36415; 74176; 80053; 81001; 83605; 85025; 87040; 87086; 87150; 96365; 96366; 96375; 96376; 99284; A9270; J1170; 87077; 87181

== ENCOUNTER 2022-06-11 18:50 | Outpatient (CLI) | payer MEDICARE, MEDICAID | END 2022-06-11 18:51 | disposition home or self-care (01) | LOC: EMS 18:50 | PROVIDERS: ATTEND Emergency Medicine | DX: N20.0 Calculus of kidney (principal); Z74.01 Bed confinement status; G82.20 Paraplegia, unspecified | CPT/HCPCS: A0425; A0428 ==

== ENCOUNTER 2022-06-12 11:27 | Outpatient (CLI) | payer MEDICARE, MEDICAID | END 2022-06-12 23:59 | disposition critical access hospital (66) | LOC: EMS 11:27 | DX: R78.81 Bacteremia (principal); G82.20 Paraplegia, unspecified; Z74.01 Bed confinement status | CPT/HCPCS: A0425; A0429 ==

== ENCOUNTER 2022-06-12 11:47 | Inpatient (IN) | payer MEDICARE, MEDICAID ==
[2022-06-12] MEDS ORDERED: CEFEPIME 2 GM in SODIUM CHLORIDE 0.9% MINIBAG 100 ML IV STA (11:49)
[2022-06-12 12:12] LABS: BASOPHILS % (AUTO) 0.5 %; EOSINOPHILS % (AUTO) 0.2 %; HCT - HEMATOCRIT 43.8 % (42.0-52.0); HGB - HEMOGLOBIN 13.7 g/dL (14.0-18.0); LYMPHOCYTES # (AUTO) 0.4 10^3/uL (1.5-3.5); LYMPHOCYTES % (AUTO) 4.5 %; MEAN CORPUSCULAR HEMOGLOBIN 27.4 pg (27.0-31.0); MEAN CORPUSCULAR HGB CONC 31.3 g/dL (32.0-36.0); MEAN CORPUSCULAR VOLUME 87.6 fL (80.0-94.0); MEAN PLATELET VOLUME 12.2 fL (7.4-11.4); MONOCYTES # (AUTO) 0.5 10^3/uL (0.0-1.0); MONOCYTES % (AUTO) 6.3 %; NEUTROPHILS # (AUTO) 7.2 10^3/uL (1.5-6.6); NEUTROPHILS % (AUTO) 87.9 %; PLT - PLATELET COUNT 263 10^3/uL (130-450); RED CELL DISTRIBUTION WIDTH 16.9 % (12.0-15.0); WHITE BLOOD COUNT 8.2 x10^3/uL (4.8-10.8)
[2022-06-12] MEDS ORDERED: HYDROmorphone 1 MG/ML CARPUJECT IVP STA (12:22)
--- NOTE | 2022-06-12 12:24 | ED Physician Documentation ---
History of Present Illness - Stated complaint Stated Complaint: + BLOOD CULUTRES - Chief complaint Chief Complaint: General - History obtained from History obtained from: Patient, EMS - Additonal information Additional information: 47-year-old gentleman with paraplegia and neurogenic bladder was seen by my partner yesterday for flank pain. Diagnosed with pyelonephritis and sent home on levofloxacin. Still having a lot of pain but was brought back today because of 2 blood cultures presumptively positive for Pseudomonas. He is not having fevers at home but he did not know he was febrile prior to arriving here yesterday where he was febrile. Review of Systems Ten Systems: 10 systems reviewed and negative Constitutional: reports: Fatigue. 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) Endocrine/Autoimmune: None GI: Chronic constipation : Incontinence HEENT: None Psych: Depression Musculoskeletal: Chronic back pain, Other Derm: Other - Past Surgical History Past Surgical History: Yes General: Gastric surgery Ortho: Spine surgery HEENT: Tonsil/Adenoidectomy - Present Medications Home Medications: Ambulatory Orders Medication Instructions Recorded Confirmed Pregabalin [Lyrica] 300 mg PO BID 08/02/21 05/26/22 Baclofen [Lioresal] 10 mg PO TID 05/26/22 05/26/22 Duloxetine HCl [Cymbalta] 60 mg PO DAILY 05/26/22 05/26/22 Metoprolol Tartrate [Lopressor] 50 mg PO BIDWM 05/26/22 05/26/22 Oxycodone Myristate [Xtampza ER] 9 mg PO TID 05/26/22 05/26/22 oxyCODONE [Roxicodone] 5 mg PO Q8H PRN 05/26/22 05/26/22 cephALEXin [Keflex] 500 mg PO QID #72 cap 05/30/22 oxyCODONE [Roxicodone] 5 mg PO Q6H PRN #30 tablet 05/30/22 Acetaminophen [Acetaminophen Extra 500 mg PO QID PRN #40 tablet 06/11/22 Strength] Ondansetron Odt [Zofran] 4 mg TL Q6H PRN #10 tablet 06/11/22 levoFLOXacin [Levaquin] 250 mg PO QD 10 Days #10 tablet 06/11/22 oxyCODONE [Roxicodone] 5 mg PO Q6H PRN #20 tablet 06/11/22 - Allergies Allergies/Adverse Reactions: Allergies Allergy/AdvReac Type Severity Reaction Status Date / Time morphine Allergy Intermediate terrors Verified 05/25/22 16:10 gabapentin Allergy Unknown Verified 05/25/22 16:10 ibuprofen Allergy Unknown Verified 05/25/22 16:10 - Social History Does the pt smoke?: Yes Smoking Status: Never smoker Does the pt drink ETOH?: Yes Does the pt have substance abuse?: No - Immunizations Immunizations are current?: Yes - POLST Patient has POLST: No PD ED PE NORMAL - Vitals Vital signs reviewed: Yes - General General: Alert and oriented X 3, No acute distress - HEENT HEENT: Other (Mostly edentulous) - Neck Neck: Supple, no meningeal sign, No bony TTP - Cardiac Cardiac: RRR, No murmur - Respiratory Respiratory: No respiratory distress, Clear bilaterally - Abdomen Abdomen: Normal bowel sounds, Soft, Non tender - Back Back: No spinal TTP, Other (There is a pressure ulcer on the right buttock) - Extremities Extremities: No edema, No calf tenderness / cord - Neuro Neuro: Alert and oriented X 3, Normal speech Results - Vitals Vitals: Vital Signs - 24 hr 06/12/22 12:07 Temperature 36.9 C Heart Rate 82 Respiratory 21 Rate Blood Pressure 129/90 H O2 Saturation 98 Oxygen O2 Source Room air - Labs Labs: Laboratory Tests 06/12/22 06/12/22 06/12/22 12:03 12:03 12:03 WBC 8.2 RBC 5.00 Hgb 13.7 L Hct 43.8 MCV 87.6 MCH 27.4 MCHC 31.3 L RDW 16.9 H Plt Count 263 MPV 12.2 H Neut # (Auto) 7.2 H Lymph # (Auto) 0.4 L [place] # (Auto) 0.5 Eos # (Auto) 0.0 Baso # (Auto) 0.0 Absolute Nucleated RBC 0.00 Nucleated RBC % 0.0 Sodium 136 Potassium 3.8 Chloride 99 L Carbon Dioxide 26 Anion Gap 11.0 BUN 18 Creatinine 0.9 Estimated GFR (MDRD) 91 Glucose 101 H Lactic Acid 0.9 Calcium 9.5 Total Bilirubin 0.7 AST 12 ALT 11 Alkaline Phosphatase 67 Total Protein 7.3 Albumin 3.9 Globulin 3.4 Albumin/Globulin Ratio 1.1 PD MEDICAL DECISION MAKING - ED course ED course: He did have a CT yesterday demonstrating bilateral stents in place, concern for stercoral colitis. 47-year-old gentleman brought back to the emergency department because of 2 out of 2 blood cultures presumptively positive for Pseudomonas. His white count has improved and he is not febrile, that said he has gram-negative bacteremia and mandates inpatient treatment for initiation of IV antibiotic therapy pending sensitivities. He was on levofloxacin which is likely appropriate, but our antibiogram shows 81% sensitivity of Pseudomonas to levofloxacin so I will start him on cefepime, which has 95% sensitivity, pending this organism and sensitivities. Spoke with Dr. Blanco for admission at 12:30 PM. Departure - Departure Disposition: [facility] DC/Xfer Clinical Impression: Gram-negative bacteremia, Pyelonephritis, Paraplegia Condition: Serious
[2022-06-12 12:26] LABS: ALBUMIN 3.9 g/dL (3.2-5.5); ALBUMIN/GLOBULIN RATIO 1.1 (1.0-2.2); BILIRUBIN,TOTAL 0.7 mg/dL (0.2-1.0); CALCIUM 9.5 mg/dL (8.5-10.3); CREATININE 0.9 mg/dL (0.6-1.2); POTASSIUM 3.8 mmol/L (3.5-5.0); TOTAL PROTEIN 7.3 g/dL (6.7-8.2)
[2022-06-12] MEDS ORDERED: SODIUM CHLORIDE FLUSH 0.9% 10 ML SYRINGE IVP PRN (13:09)
[2022-06-12] MEDS ORDERED: ONDANSETRON ODT 4 MG TABLET TL PRN (13:09)
[2022-06-12] MEDS ORDERED: ONDANSETRON 4 MG/2 ML VIAL IVP PRN (13:09)
[2022-06-12 13:36] LABS: B. PARAPERTUSSIS- RESP PCR PAN NOT DETECTED; B. PERTUSSIS- RESP PCR PANEL NOT DETECTED; C. PNEUMONIAE- RESP PCR PANEL NOT DETECTED; CORONAVIRUS 229E-RESP PCR NOT DETECTED; CORONAVIRUS HKU1-RESP PCR NOT DETECTED; CORONAVIRUS NL63-RESP PCR NOT DETECTED; CORONAVIRUS OC43-RESP PCR NOT DETECTED; HUMAN METAPNEUMOVIRUS NOT DETECTED; INFLUENZA A- RESP PCR PANEL NOT DETECTED; INFLUENZA B - RESP PCR PANEL NOT DETECTED; M. PNEUMONIAE- RESP PCR PANEL NOT DETECTED; PARAINFLUENZA VIRUS 1 NOT DETECTED; PARAINFLUENZA VIRUS 2 NOT DETECTED; PARAINFLUENZA VIRUS 3 NOT DETECTED; PARAINFLUENZA VIRUS 4 NOT DETECTED; RHINOVIRUS/ENTEROVIRUS NOT DETECTED; RSV- RESP PCR PANEL NOT DETECTED; SARS-CoV-2 -RESP PCR PANEL NOT DETECTED
[2022-06-12] MEDS: ACETAMINOPHEN 325 MG TABLET PO PRN ×2 (14:23→22:03)
[2022-06-12] MEDS: SODIUM CHLORIDE 0.9% 1,000 ML IV SCH (14:23)
[2022-06-12] MEDS: oxyCODONE 5 MG TABLET PO PRN ×3 (14:24→22:43)
[2022-06-12 14:36] LABS: BILIRUBIN,URINE NEGATIVE (NEGATIVE); GLUCOSE, URINE (UA) NEGATIVE (NEGATIVE); KETONES,URINE (UA) 15 mg/dL (NEGATIVE); LEUKOCYTE ESTERASE, URINE MODERATE (NEGATIVE); NITRITE,URINE POSITIVE (NEGATIVE); OCCULT BLOOD,URINE LARGE (NEGATIVE); PROTEIN,URINE 30 mg/dL (NEGATIVE); UROBILINOGEN,URINE 0.2 (NORMAL) E.U./dL (NORMAL)
[2022-06-12 14:37] LABS: CLARITY,URINE CLOUDY (CLEAR)
[2022-06-12 14:48] LABS: BACTERIA,URINE Few /HPF (None Seen); RBC,URINE TNTC /HPF (0-5); SQUAMOUS EPITHELIAL CELL,UR NONE SEEN (<= Few); WBC,URINE >25 /HPF (0-3)
--- NOTE | 2022-06-12 15:09 | PHARMACY PROGRESS NOTE ---
- Best Possible Medication History Admit Date and Time: 06/12/22 3308 Processed by: Pharmacy Medication History completed: Yes Patient Interview: Completed Secondary Source(s): Insurance records, Previous admit records Patient states he has run out of multiple medications in the past month, including his Xtampza ER and baclofen. He is trying to establish with a pain clinic. He was prescribed levofloxacin in the ER yesterday, but he has not pick ed up the prescription yet. As the person ultimately responsible for medication therapy, providers are able to order a medication from an existing home medication list in [facility] via the "Reconcile Routine" prior to Confirmation of that medication by user support analyst supervisor. Such practice is discouraged except when the physician, in their clinical judgment, deems that a medical need exists for a medication without regard to previous use.
--- NOTE | 2022-06-12 16:08 | HISTORY & PHYSICAL EXAMINATION ---
Chief Complaint - Chief Complaint Chief Complaint: Bacteremia History of Present Illness - History of Present Illness HPI Comment/Other: Yann is a 47 year old man with history of thoracic and lumbar schwannoma, paraplegia caused by the schwannoma, renal calculi, bilteral uretral stents, and neurogenic bladder with glover catheter placed. He presented on 06/11/2022 to the emergency department for bilateral flank pain. He was diagnosed with pylonephrit is and prescribed Levaquin and discharged home. Blood cultures were done and came back presumptively positive for pseudomonas, and he was brought back to the hospital. He is being admitted for initiation of IV antibiotic therapy with cefepime due to bacteremia caused by gram-negative bacteria. Previously, Yann was admitted on 05/25/2022 after presenting to the ED for altered mental status due to UTI. Urine culture was positive for E. coli. 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 He was treated with IV ceftriaxone and continued oral ceftriaxone after being discharged on 05/30/2022. A new glover catheter was also placed. Yann's flank pain started this past Saturday. He says that his UTI symptoms from admission earlier this month were clearing up but then the symptoms came back again. The pain is bilateral and equal on both sides. He rated the pain as 8/10 and is continuing to have the same level of pain today. He says the pain mildly improved to a 6/10 but has not gotten any better. He also reported a temperature of 100F last night. He did have some blood in his urine. When he was in the ER earlier this month, he had foul-smelling urine but did not notice any changes to the smell of his urine during this visit. He does not have any urina ry urgency, abdominal pain, nausea, vomiting, diarrhea headache, dizziness, chest pain, cough, shortness of breath, sore throat, or rhinorrhea. He is not experiencing any new weakness or fatigue. CBC done on 06/12 showed WBC of 8.2 and Neutrophil count of 7.2 Urine culture done on 06/12 was positive for nitrates, large occult blood, RBC TNTC, and WBC. History - Past Medical History Cardiovascular: reports: Hypertension, Murmur, Other Respiratory: reports: Asthma Neuro: reports: Other Endocrine/Autoimmune: reports: None GI: reports: Chronic constipation : reports: Incontinence HEENT: reports: None Psych: reports: Depression Musculoskeletal: reports: Chronic back pain, Other Derm: reports: Other MRSA Hx?: Yes - Past Surgical History General: reports: Gastric surgery Ortho: reports: Spine surgery HEENT: reports: Tonsil/Adenoidectomy - Family & Social History Family History: Mother: Cancer, [place], Father: CVA/TIA, [place] Living arrangement: At home Living Situation: With spouse/s.o. Social History Notes: Currently, his and friend are helping to take care of him. He also has a caregiver that comes in once a week as well. He feels like he is getting good care. He has prior history of smoking tobacco. He started after high school and smoked on and off up until a couple months ago, and smoked about 0.5PPD. He drinks infrequently and only at social events, which he describes as about once every few months. He does not use cannabis and denies IV drug use. - POLST Patient has POLST: No Meds/Allgy - Home Medications Home Medications: Ambulatory Orders Medication Instructions Recorded Confirmed Pregabalin [Lyrica] 300 mg PO BID 08/02/21 06/12/22 Baclofen [Lioresal] 10 mg PO TID 05/26/22 06/12/22 Duloxetine HCl [Cymbalta] 60 mg PO DAILY 05/26/22 06/12/22 Metoprolol Tartrate [Lopressor] 50 mg PO BIDWM 05/26/22 06/12/22 Oxycodone Myristate [Xtampza ER] 9 mg PO TID 05/26/22 06/12/22 oxyCODONE [Roxicodone] 5 mg PO Q8H PRN 05/26/22 06/12/22 Acetaminophen [Acetaminophen Extra 500 mg PO QID PRN #40 tablet 06/11/22 06/12/22 Strength] Ondansetron Odt [Zofran] 4 mg TL Q6H PRN #10 tablet 06/11/22 06/12/22 levoFLOXacin [Levaquin] 250 mg PO QD 10 Days #10 tablet 06/11/22 06/12/22 - Allergies Allergies/Adverse Reactions: Allergies Allergy/AdvReac Type Severity Reaction Status Date / Time morphine Allergy Intermediate terrors Verified 05/25/22 16:10 gabapentin Allergy Unknown Verified 05/25/22 16:10 ibuprofen Allergy Unknown Verified 05/25/22 16:10 Review of Systems - Other Findings Other Findings: 10 systems reviewed and negative except for positives listed in HPI Exam - Vital Signs Reviewed Vital Signs: Yes Vital Signs: Vital Signs x48h Temp Pulse Pulse Resp BP BP Pulse Ox 06/12/22 14:01 36.4 C L 82 18 134/90 H 96 06/12/22 13:30 82 16 120/82 H 97 06/12/22 12:30 89 21 99 06/12/22 12:07 36.9 C 82 21 129/90 H 98 - Physical Exam General Appearance: negative: No acute distress, Alert Eyes Bilateral: negative: Normal inspection, PERRL, EOMI Neck: negative: Nml inspection Respiratory: negative: No respiratory distress, Breath sounds nml Cardiovascular: negative: Regular rate & rhythm, No murmur, No gallop Abdomen: positive: Tenderness (There was tenderness in the LLQ with palpation. He says the pain has been there since prior admission in early May.), Other (Surgical scar present mid-abdomen). negative: Nml bowel sounds, No distention Skin: positive: Color nml, Warm, Other (Multiple decubitis ulcers on left leg including distal left quadriceps, lateral thigh, medial thigh, distal licona, distal tibial tuberosity, and gluteal cleft are present. Significant dry skin present on bilateral feet.) Extremities: positive: No pedal edema Neurologic/Psychiatric: negative: Mood/affect nml Conclusion/Plan - Problem List (1) Gram-negative bacteremia Conclusion/Plan: This is gram-negative bacteremia caused by UTI which is due to chronic indwelling Glover catheter. He has had multiple episodes of this in the past. We do not have the sensitivity reports from the blood cultures, so we will treat w ith broad-spectrum antibiotics to cover gram-negative bacteria and will adjust antibiotics based on sensitivity reports. We will also continue to treat his pain. We will give him Oxycodone 5mg Q4H which has worked well for him in the past. (2) Pyelonephritis Conclusion/Plan: Will treat with Cefepime for broad-spectrum antibiotic coverage due to bacteremia present. He has history of chronic UTI due to indwelling glover catheter. (3) Bilateral ureteral calculi Conclusion/Plan: Bilateral ureteral stents were placed over a year ago. CT done during prior admission showed the stents were stable and chronic. The stents were originally going to be replaced on 05/25/2022, the date of his prior admission. He has been unable to follow-up with urology. (4) Hypertension Conclusion/Plan: Blood pressure is well-controlled on Metoprolol Tartrate 50mg PO BID. Will continue this medication while he is in the hospital. (5) Paraplegia Conclusion/Plan: He does get muscle spasms, will reorder home meds including Pregabalin, Duloxetine, and Baclofen - Lab Results Fish Bones: 06/12/22 12:03 06/12/22 12:03
[2022-06-12] MEDS: SODIUM CHLORIDE FLUSH 0.9% 10 ML SYRINGE IVP SCH (18:42)
[2022-06-12] MEDS ORDERED: PREGABALIN 100 MG CAPSULE PO SCH (21:00)
[2022-06-12] MEDS: BACLOFEN 10 MG TABLET PO SCH (22:03)
[2022-06-12] MEDS: CEFEPIME 2 GM in SODIUM CHLORIDE 0.9% MINIBAG 100 ML IV SCH (22:03)
[2022-06-12] MEDS: PREGABALIN 100 MG CAPSULE PO SCH (22:03)
[2022-06-13] MEDS: SODIUM CHLORIDE 0.9% 1,000 ML IV SCH (01:15)
[2022-06-13] MEDS: oxyCODONE 5 MG TABLET PO PRN ×4 (02:28→14:52)
[2022-06-13] MEDS: SODIUM CHLORIDE FLUSH 0.9% 10 ML SYRINGE IVP SCH ×3 (03:56→18:15)
[2022-06-13] MEDS: ACETAMINOPHEN 325 MG TABLET PO PRN ×2 (05:32→15:46)
[2022-06-13] MEDS: BACLOFEN 10 MG TABLET PO SCH ×3 (05:32→21:19)
[2022-06-13] MEDS: CEFEPIME 2 GM in SODIUM CHLORIDE 0.9% MINIBAG 100 ML IV SCH ×2 (08:08→21:19)
[2022-06-13] MEDS: DULoxetine 30 MG CAPSULE PO SCH (08:08)
[2022-06-13] MEDS: PREGABALIN 100 MG CAPSULE PO SCH ×2 (08:08→18:16)
[2022-06-13] MEDS: polyethylene glycoL 3350 17 GM PACKET PO SCH (11:18)
--- NOTE | 2022-06-13 12:14 | PROVIDER PROGRESS NOTE ---
Subjective - Prog Note Date Prog Note Date: 06/13/22 Prog Note Time: 12:09 - Subjective Subjective: He is continuing to feel better while on Cefepime for bacteremia caused by UTI. The pressure ulcers on his left leg are continuing to heal well. He says that he has been trying to get rotation to avoid laying on either side for long periods of time, but has been mostly laying on his right side to avoid pressure on the wounds of the left leg. He is experiencing some discomfort and pressure around the anal opening which he thinks is due to impacted stool. He says that nursing was able to remove disimpacted stool. He was given Miralax but says he is continuing to experience the discomfort. Current Medications - Current Medications Current Medications: Active Medications Acetaminophen (Acetaminophen 325 Mg Tablet) 650 mg PO Q4HR PRN PRN Reason: Pain 1 to 4, or Fever Last Admin: 06/13/22 05:32 Dose: 650 mg Baclofen (Baclofen 10 Mg Tablet) 10 mg PO TID [facility] Last Admin: 06/13/22 05:32 Dose: 10 mg Duloxetine HCl (Duloxetine 30 Mg Capsule) 60 mg PO DAILY [facility] Last Admin: 06/13/22 08:08 Dose: 60 mg Cefepime HCl 2 gm/ Sodium (Chloride) 100 mls @ 200 mls/hr IV BID [facility] Last Infusion: 06/13/22 08:38 Dose: Infused Ondansetron HCl (Ondansetron Odt 4 Mg Tablet) 4 mg TL Q6HR PRN PRN Reason: Nausea / Vomiting Ondansetron HCl (Ondansetron 4 Mg/2 Ml Vial) 4 mg IVP Q6HR PRN PRN Reason: Nausea / Vomiting Oxycodone HCl (Oxycodone 5 Mg Tablet) 5 mg PO Q4HR PRN PRN Reason: Pain 5 to 7 Last Admin: 06/13/22 10:41 Dose: 5 mg Polyethylene Glycol (Polyethylene Glycol 3350 17 Gm Packet) 17 gm PO DAILY [facility] Last Admin: 06/13/22 11:18 Dose: 17 gm Pregabalin (Pregabalin 100 Mg Capsule) 300 mg PO 0600,1800 [facility] Senna (Senna 8.6 Mg Tablet) 8.6 - 17.2 mg PO PRN PRN PRN Reason: Constipation Sodium Chloride (Sodium Chloride Flush 0.9% 10 Ml Syringe) 10 ml IVP PRN PRN PRN Reason: NEEDED PER PROVIDER ORDERS Sodium Chloride (Sodium Chloride Flush 0.9% 10 Ml Syringe) 10 ml IVP 0100,0900,1700 JOB Last Admin: 06/13/22 08:08 Dose: Not Given Pregabalin [Lyrica] 300 mg PO 0600,1800 08/02/21 Baclofen [Lioresal] 10 mg PO TID 05/26/22 Duloxetine HCl [Cymbalta] 60 mg PO DAILY 05/26/22 Metoprolol Tartrate [Lopressor] 50 mg PO BIDWM 05/26/22 Oxycodone Myristate [Xtampza ER] 9 mg PO TID 05/26/22 oxyCODONE [Roxicodone] 5 mg PO Q8H PRN 05/26/22 Objective - Vital Signs/Intake & Output Vital Signs: Vital Signs x48h Temp Pulse Resp BP Pulse Ox 06/13/22 07:21 37.2 C 100 17 122/85 H 96 Intake & Output: Intake & Output 06/10/22 06/11/22 06/12/22 06/13/22 23:59 23:59 23:59 23:59 Intake Total 2530.667 3086.666 Output Total 1450 2025 Balance 0905.228 8727.666 - Objective General Appearance: negative: No acute distress, Alert Eyes Bilateral: negative: Normal inspection, EOMI, No lid inflammation, Conjunctivae nml, No scleral icterus Neck: negative: Nml inspection, Stiff neck Respiratory: negative: No respiratory distress, Breath sounds nml Cardiovascular: negative: Regular rate & rhythm, No murmur, No gallop Abdomen: positive: Tenderness (There is tenderness with palpation of LLQ. He has had this since prior admission and there is no change in pain since yesterday's exam). negative: No distention Rectal: positive: Tenderness, Other. negative: Bloody stool (He did have impacted stool this morning that was removed by nursing, but no impacted stool was felt on repeat exam), Mass, Nodule Skin: positive: Other (Pressure ulcers present on left gluteal cleft, lateral malleolus, distal tib-fib, distal quadriceps/knee are well-healing). negative: Color nml, Warm, Dry Extremities: negative: No pedal edema (Significant dry skin on bilateral feet) Neurologic/Psychiatric: negative: Mood/affect nml - Lab Results Fish Bones: 06/12/22 12:03 06/12/22 12:03 Other Labs: Lab Results x24hrs 06/12/22 06/12/22 06/12/22 Range/Units 14:00 12:38 12:03 WBC (4.8-10.8) x10^3/uL RBC (4.70-6.10) 10^6/uL Hgb (14.0-18.0) g/dL Hct (42.0-52.0) % MCV (80.0-94.0) fL MCH (27.0-31.0) pg MCHC (32.0-36.0) g/dL RDW (12.0-15.0) % Plt Count (130-450) 10^3/uL MPV (7.4-11.4) fL Neut # (Auto) (1.5-6.6) 10^3/uL Lymph # (Auto) (1.5-3.5) 10^3/uL Pender # (Auto) (0.0-1.0) 10^3/uL Eos # (Auto) (0.0-0.7) 10^3/uL Baso # (Auto) (0.0-0.1) 10^3/uL Absolute Nucleated RBC x10^3/uL Nucleated RBC % /100WBC Sodium (135-145) mmol/L Potassium (3.5-5.0) mmol/L Chloride (101-111) mmol/L Carbon Dioxide (21-32) mmol/L Anion Gap (6-13) BUN (6-20) mg/dL Creatinine (0.6-1.2) mg/dL Estimated GFR (MDRD) (>89) Glucose (70-100) mg/dL Lactic Acid 0.9 (0.5-2.2) mmol/L Calcium (8.5-10.3) mg/dL Total Bilirubin (0.2-1.0) mg/dL AST (10-42) IU/L ALT (10-60) IU/L Alkaline Phosphatase (42-121) IU/L Total Protein (6.7-8.2) g/dL Albumin (3.2-5.5) g/dL Globulin (2.1-4.2) g/dL Albumin/Globulin Ratio (1.0-2.2) Urine Color YELLOW Urine Clarity CLOUDY (CLEAR) Urine pH 6.0 (5.0-7.5) PH Ur Specific [place] 1.025 (1.002-1.030) Urine Protein 30 H (NEGATIVE) mg/dL Urine Glucose (UA) NEGATIVE (NEGATIVE) mg/dL Urine Ketones 15 H (NEGATIVE) mg/dL Urine Occult Blood LARGE H (NEGATIVE) Urine Nitrite POSITIVE H (NEGATIVE) Urine Bilirubin NEGATIVE (NEGATIVE) Urine Urobilinogen 0.2 (NORMAL) (NORMAL) E.U./dL Ur Leukocyte Esterase MODERATE H (NEGATIVE) Urine RBC TNTC H (0-5) /HPF Urine WBC >25 H (0-3) /HPF Ur Squamous Epith Cells NONE SEEN (<= Few) Urine Bacteria Few (None Seen) /HPF Urine Culture Comments INDICATED Nasal Adenovirus (PCR) NOT DETECTED Nasal B. parapertussis DNA (PCR) NOT DETECTED Nasal Coronavir 229E PCR NOT DETECTED Nasal Coronavir HKU1 PCR NOT DETECTED Nasal Coronavir NL63 PCR NOT DETECTED Nasal Coronavir OC43 PCR NOT DETECTED Nasal Enterovir/Rhinovir PCR NOT DETECTED Nasal Influenza B PCR NOT DETECTED Nasal Influenza A PCR NOT DETECTED Nasal Parainfluen 1 PCR NOT DETECTED Nasal Parainfluen 2 PCR NOT DETECTED Nasal Parainfluen 3 PCR NOT DETECTED Nasal Parainfluen 4 PCR NOT DETECTED Nasal RSV (PCR) NOT DETECTED Nasal B.pertussis DNA PCR NOT DETECTED Nasal C.pneumoniae (PCR) NOT DETECTED Tito Human Metapneumo PCR NOT DETECTED Nasal M.pneumoniae (PCR) NOT DETECTED Nasal SARS-CoV-2 (PCR) NOT DETECTED 06/12/22 06/12/22 Range/Units 12:03 12:03 WBC 8.2 (4.8-10.8) x10^3/uL RBC 5.00 (4.70-6.10) 10^6/uL Hgb 13.7 L (14.0-18.0) g/dL Hct 43.8 (42.0-52.0) % MCV 87.6 (80.0-94.0) fL MCH 27.4 (27.0-31.0) pg MCHC 31.3 L (32.0-36.0) g/dL RDW 16.9 H (12.0-15.0) % Plt Count 263 (130-450) 10^3/uL MPV 12.2 H (7.4-11.4) fL Neut # (Auto) 7.2 H (1.5-6.6) 10^3/uL Lymph # (Auto) 0.4 L (1.5-3.5) 10^3/uL Pender # (Auto) 0.5 (0.0-1.0) 10^3/uL Eos # (Auto) 0.0 (0.0-0.7) 10^3/uL Baso # (Auto) 0.0 (0.0-0.1) 10^3/uL Absolute Nucleated RBC 0.00 x10^3/uL Nucleated RBC % 0.0 /100WBC Sodium 136 (135-145) mmol/L Potassium 3.8 (3.5-5.0) mmol/L Chloride 99 L (101-111) mmol/L Carbon Dioxide 26 (21-32) mmol/L Anion Gap 11.0 (6-13) BUN 18 (6-20) mg/dL Creatinine 0.9 (0.6-1.2) mg/dL Estimated GFR (MDRD) 91 (>89) Glucose 101 H (70-100) mg/dL Lactic Acid (0.5-2.2) mmol/L Calcium 9.5 (8.5-10.3) mg/dL Total Bilirubin 0.7 (0.2-1.0) mg/dL AST 12 (10-42) IU/L ALT 11 (10-60) IU/L Alkaline Phosphatase 67 (42-121) IU/L Total Protein 7.3 (6.7-8.2) g/dL Albumin 3.9 (3.2-5.5) g/dL Globulin 3.4 (2.1-4.2) g/dL Albumin/Globulin Ratio 1.1 (1.0-2.2) Urine Color Urine Clarity (CLEAR) Urine pH (5.0-7.5) PH Ur Specific [place] (1.002-1.030) Urine Protein (NEGATIVE) mg/dL Urine Glucose (UA) (NEGATIVE) mg/dL Urine Ketones (NEGATIVE) mg/dL Urine Occult Blood (NEGATIVE) Urine Nitrite (NEGATIVE) Urine Bilirubin (NEGATIVE) Urine Urobilinogen (NORMAL) E.U./dL Ur Leukocyte Esterase (NEGATIVE) Urine RBC (0-5) /HPF Urine WBC (0-3) /HPF Ur Squamous Epith Cells (<= Few) Urine Bacteria (None Seen) /HPF Urine Culture Comments Nasal Adenovirus (PCR) Nasal B. parapertussis DNA (PCR) Nasal Coronavir 229E PCR Nasal Coronavir HKU1 PCR Nasal Coronavir NL63 PCR Nasal Coronavir OC43 PCR Nasal Enterovir/Rhinovir PCR Nasal Influenza B PCR Nasal Influenza A PCR Nasal Parainfluen 1 PCR Nasal Parainfluen 2 PCR Nasal Parainfluen 3 PCR Nasal Parainfluen 4 PCR Nasal RSV (PCR) Nasal B.pertussis DNA PCR Nasal C.pneumoniae (PCR) Tito Human Metapneumo PCR Nasal M.pneumoniae (PCR) Nasal SARS-CoV-2 (PCR) ABX Reporting Has patient been on IV antibiotics over the past 48 hours?: Yes Assessment/Plan - Problem List (1) Gram-negative bacteremia Impression: He is continuing to do well while on Cefepime. We will continue to wait for the sensitivity reports before discharging him. (2) Pyelonephritis Impression: He has a history of chronic UTIs due to indwelling glover catheter. We are treating with Cefepime to cover Pseudomonas found on blood cultures. (3) Bilateral ureteral calculi Impression: Calculi from previous CT were shown to be stable and chronic. He has ureteral stents placed which need to be replaced by urology. (4) Hypertension Impression: We will continue to give him Metoprolol for his blood pressure which has continue to remain well-controlled during his hospital stay (5) Paraplegia Impression: We will continue his home medications for his muscle spasms.
[2022-06-13] MEDS: SENNA 8.6 MG TABLET PO PRN (12:27)
[2022-06-13] MEDS ORDERED: ZINC OXIDE 20% OINT 30 GM TUBE TOP PRN (16:36)
[2022-06-14] MEDS: SODIUM CHLORIDE FLUSH 0.9% 10 ML SYRINGE IVP SCH ×3 (01:00→16:47)
[2022-06-14] MEDS: oxyCODONE 5 MG TABLET PO PRN ×5 (04:13→21:03)
[2022-06-14] MEDS: BACLOFEN 10 MG TABLET PO SCH ×3 (06:45→21:03)
[2022-06-14] MEDS: PREGABALIN 100 MG CAPSULE PO SCH ×2 (06:45→16:47)
[2022-06-14] MEDS: CEFEPIME 2 GM in SODIUM CHLORIDE 0.9% MINIBAG 100 ML IV SCH ×2 (08:06→21:02)
[2022-06-14] MEDS: polyethylene glycoL 3350 17 GM PACKET PO SCH (08:06)
[2022-06-14] MEDS: DULoxetine 30 MG CAPSULE PO SCH (08:07)
[2022-06-14] MEDS: SENNA 8.6 MG TABLET PO PRN (08:15)
[2022-06-14] MEDS: DOCUSATE SODIUM 250 MG CAPSULE PO SCH (12:58)
[2022-06-14] MEDS ORDERED: SENNA 8.6 MG TABLET PO PRN (12:58)
--- NOTE | 2022-06-14 13:16 | PROVIDER PROGRESS NOTE ---
Subjective - Prog Note Date Prog Note Date: 06/14/22 Prog Note Time: 13:16 - Subjective Subjective: He says he is continuing to feel well and is not experiencing any new discomfort. Current Medications - Current Medications Current Medications: Active Medications Acetaminophen (Acetaminophen 325 Mg Tablet) 650 mg PO Q4HR PRN PRN Reason: Pain 1 to 4, or Fever Last Admin: 06/13/22 15:46 Dose: 650 mg Baclofen (Baclofen 10 Mg Tablet) 10 mg PO TID [facility] Last Admin: 06/14/22 06:45 Dose: 10 mg Docusate Sodium (Docusate Sodium 250 Mg Capsule) 250 - 500 mg PO DAILY [facility] Last Admin: 06/14/22 12:58 Dose: 250 mg Duloxetine HCl (Duloxetine 30 Mg Capsule) 60 mg PO DAILY [facility] Last Admin: 06/14/22 08:07 Dose: 60 mg Cefepime HCl 2 gm/ Sodium (Chloride) 100 mls @ 200 mls/hr IV BID [facility] Last Infusion: 06/14/22 08:36 Dose: Infused Multi-Ingredient Ointment (Zinc Oxide 20% Oint 30 Gm Tube) 1 applic TOP PRN PRN PRN Reason: Skin Care Last Admin: 06/13/22 18:49 Dose: 1 applic Ondansetron HCl (Ondansetron Odt 4 Mg Tablet) 4 mg TL Q6HR PRN PRN Reason: Nausea / Vomiting Last Admin: 06/13/22 13:54 Dose: 4 mg Ondansetron HCl (Ondansetron 4 Mg/2 Ml Vial) 4 mg IVP Q6HR PRN PRN Reason: Nausea / Vomiting Oxycodone HCl (Oxycodone 5 Mg Tablet) 5 mg PO Q4HR PRN PRN Reason: Pain 5 to 7 Last Admin: 06/14/22 12:58 Dose: 5 mg Polyethylene Glycol (Polyethylene Glycol 3350 17 Gm Packet) 17 gm PO DAILY [facility] Last Admin: 06/14/22 08:06 Dose: 17 gm Pregabalin (Pregabalin 100 Mg Capsule) 300 mg PO 0600,1800 [facility] Last Admin: 06/14/22 06:45 Dose: 300 mg Senna (Senna 8.6 Mg Tablet) 8.6 - 17.2 mg PO BID [facility] Sodium Chloride (Sodium Chloride Flush 0.9% 10 Ml Syringe) 10 ml IVP PRN PRN PRN Reason: NEEDED PER PROVIDER ORDERS Sodium Chloride (Sodium Chloride Flush 0.9% 10 Ml Syringe) 10 ml IVP 0100,0900,1700 JOB Last Admin: 06/14/22 08:07 Dose: 10 ml Pregabalin [Lyrica] 300 mg PO 0600,1800 08/02/21 Baclofen [Lioresal] 10 mg PO TID 05/26/22 Duloxetine HCl [Cymbalta] 60 mg PO DAILY 05/26/22 Metoprolol Tartrate [Lopressor] 50 mg PO BIDWM 05/26/22 Oxycodone Myristate [Xtampza ER] 9 mg PO TID 05/26/22 oxyCODONE [Roxicodone] 5 mg PO Q8H PRN 05/26/22 Objective - Vital Signs/Intake & Output Reviewed Vital Signs: Yes Vital Signs: Vital Signs x48h Temp Pulse Resp BP Pulse Ox 06/14/22 07:23 37.4 C 104 H 16 129/80 92 Intake & Output: Intake & Output 06/11/22 06/12/22 06/13/22 06/14/22 23:59 23:59 23:59 23:59 Intake Total 2530.667 4358.333 2230 Output Total 1456 3735 2375 Balance 3520.524 8958.333 -145 - Objective General Appearance: positive: No acute distress, Alert Eyes Bilateral: positive: Normal inspection Neck: positive: Nml inspection, Stiff neck Respiratory: positive: No respiratory distress, Breath sounds nml Cardiovascular: positive: Regular rate & rhythm Abdomen: positive: No distention, Tenderness (Tenderness in LLQ, no change from baseline), Other (Mid-abdominal surgical scar present from previous surgery) Skin: positive: Color nml, Warm, Dry, Other (Pressure ulcers present on left gluteal cleft, lateral malleolus, distal tib-fib, distal quadriceps/knee are well-healing) Neurologic/Psychiatric: positive: Mood/affect nml - Lab Results Fish Bones: 06/12/22 12:03 06/12/22 12:03 ABX Reporting Has patient been on IV antibiotics over the past 48 hours?: Yes Assessment/Plan - Problem List (1) Gram-negative bacteremia Impression: He is continuing to do well on the Cefepime. The sensitivity results from blood cultures done in the ED on 06/11/22 showed the Pseudomonas causing his bacte puja is sensitive to Levaquin which he will continue to take when he is discharged. He will be discharged tomorrow since transportation cannot be arranged for him to be discharged today. (2) Pyelonephritis Impression: He has a history of chronic UTIs due to indwelling glover catheter. We are treating with Cefepime to cover Pseudomonas found on blood cultures. He will be treated with Levaquin upon discharge tomorrow. (3) Bilateral ureteral calculi Impression: Calculi from previous CT were shown to be stable and chronic. He has ureteral stents placed which need to be replaced by urology. (4) Hypertension Impression: His blood pressure has remained well-controlled while in the hospital. He takes Metoprolol Tartrate for his blood pressure. (5) Paraplegia Impression: We will continue his home medications for his muscle spasms.
[2022-06-14] MEDS: ACETAMINOPHEN 325 MG TABLET PO PRN ×2 (13:47→21:03)
[2022-06-14] MEDS: SENNA 8.6 MG TABLET PO SCH ×2 (13:47→21:02)
[2022-06-14] MEDS: METOPROLOL TARTRATE 50 MG TABLET PO SCH (16:47)
[2022-06-15] MEDS: SODIUM CHLORIDE FLUSH 0.9% 10 ML SYRINGE IVP SCH ×2 (01:00→08:18)
[2022-06-15] MEDS: PREGABALIN 100 MG CAPSULE PO SCH (05:23)
[2022-06-15] MEDS: BACLOFEN 10 MG TABLET PO SCH ×2 (05:23→13:34)
[2022-06-15] MEDS: oxyCODONE 5 MG TABLET PO PRN ×3 (05:23→13:34)
--- NOTE | 2022-06-15 07:04 | Discharge Plan ---
Discharge Plan Problem Reviewed?: Yes Disposition: Home Health Service Condition: Fair Prescriptions: L. Acidophilus/Pectin, [place] [Acidophilus-Pectin Captab] 1 each PO BID #60 tablet levoFLOXacin [Levaquin] 750 mg PO QD #30 tablet oxyCODONE [Roxicodone] 5 mg PO Q8H PRN #30 tab PRN Reason: Breakthrough Pain Zinc Oxide [Triple Paste] 56.7 gm TP DAILY #57 gm Diet: Regular Activity Restrictions: Activity as Tolerated Shower Restrictions: No Driving Restrictions: Yes (no driving) Health Concerns: You came to our emergency room because you were having some back pain where your kidneys are. In the emergency room they diagnosed you as another urinary tract infection and you were sent home. While you are there, the cultures that they sent to the lab to grow out in your urine and blood came back positive for a bacteria called Pseudomonas. As such you were brought back to the emergency room. Your vital signs were stable, he did not have any signs of severe infection. Nevertheless we needed to wait for the specific antibiotic to treat Pseudomonas. Sometimes people develop resistance to it and we wanted to make sure you are on the right medication. Medication for you to go home on is Levaquin. You will need to take that for 10 days. You have markedly improved from the last time we saw you. Your nutrition is better. Your ulcers on your body are healing. It was very good to see you doing better Plan of Treatment: Continue antibiotics until they are completely done. 10 days. Please see your primary care provider in follow-up in the next 2 weeks Please make sure that you try and get in to see the urologist to remove your ureteral stents. They may be the source of recurrent infection and this could be dangerous if the infection becomes severe. You have a chronic pain syndrome due to paraplegia and are usually on opioid drugs. They are very strict rules to prescribing these medications. As a hospitalist I am only allowed to give you a very small amount. You must be established in a regular pain clinic in order to get refills and longer or larger amounts. I have discharged you with 30 tablets of oxycodone. You state that you have an appointment with the pain clinic in the next month. Care Goals: To remain at home with good caregiving without having to come back to the hospital Assessment: Patient is alert, oriented, understands the treatment plan and promises to follow through No Smoking: If you smoke, Please STOP! Call for help. Follow-up with: Danika García PA-C [Primary Care Provider] -
[2022-06-15] MEDS: METOPROLOL TARTRATE 50 MG TABLET PO SCH (08:13)
[2022-06-15] MEDS: DOCUSATE SODIUM 250 MG CAPSULE PO SCH (08:13)
[2022-06-15] MEDS: DULoxetine 30 MG CAPSULE PO SCH (08:13)
[2022-06-15] MEDS: ACETAMINOPHEN 325 MG TABLET PO PRN ×2 (08:17→12:14)
[2022-06-15] MEDS: SENNA 8.6 MG TABLET PO SCH (08:17)
[2022-06-15] MEDS: polyethylene glycoL 3350 17 GM PACKET PO SCH (08:17)
[2022-06-15] MEDS: CEFEPIME 2 GM in SODIUM CHLORIDE 0.9% MINIBAG 100 ML IV SCH (08:24)
--- NOTE | 2022-06-15 09:19 | DISCHARGE SUMMARY ---
Discharge Summary Admit Date: 06/12/22 Discharge Date: 06/15/22 Discharging Provider: Va Blanco MD Primary Care Provider: JEFFREY Smiley Condition at Discharge: Fair Discharge Disposition: 06 Home Health Service - DIAGNOSES Discharge Diagnoses with Status of Each Condition: 1. Pseudomonas bacteremia 2. Pseudomonas UTI/pyelonephritis 3. Bilateral ureteral calculi 4. Bilateral ureteral stents 5. Hypertension 6. Paraplegia 7. Multiple pressure ulcers, present on admission, healing well - HPI History of Present Illness: Yann is a 47 year old man with history of thoracic and lumbar schwannoma, paraplegia caused by the schwannoma, renal calculi, bilteral uretral stents, and neurogenic bladder with glover catheter placed. He presented on 06/11/2022 to the emergency department for bilateral flank pain. He was diagnosed with pylonephritis and prescribed Levaquin and discharged home. Blood cultures were done and came back presumptively positive for pseudomonas, and he was brought back to the hospital. He is being admitted for initiation of IV antibiotic therapy with cefepime due to bacteremia caused by gram-negative bacteria. Previously, Yann was admitted on 05/25/2022 after presenting to the ED for altered mental status due to UTI. Urine culture was positive for E. coli. 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 He was treated with IV ceftriaxone and continued oral ceftriaxone after being discharged on 05/30/2022. A new glover catheter was also placed. Yann's flank pain started this past Saturday. He says that his UTI symptoms from admission earlier this month were clearing up but then the symptoms came back again. The pain is bilateral and equal on both sides. He rated the pain as 8/10 and is continuing to have the same level of pain today. He says the pain m ildly improved to a 6/10 but has not gotten any better. He also reported a temperature of 100F last night. He did have some blood in his urine. When he was in the ER earlier this month, he had foul-smelling urine but did not notice any changes to the smell of his urine during this visit. He does not have any urinary urgency, abdominal pain, nausea, vomiting, diarrhea headache, dizziness, chest pain, cough, shortness of breath, sore throat, or rhinorrhea. He is not experiencing any new weakness or fatigue. CBC done on 06/12 showed WBC of 8.2 and Neutrophil count of 7.2 Urine culture done on 06/12 was positive for nitrates, large occult blood, RBC TNTC, and WBC. - Past Medical History Cardiovascular: reports: Hypertension, Murmur, Other Respiratory: reports: Asthma Neuro: reports: Other Endocrine/Autoimmune: reports: None GI: reports: Chronic constipation : reports: Incontinence HEENT: reports: None Psych: reports: Depression Musculoskeletal: reports: Chronic back pain, Other Derm: reports: Other MRSA Hx?: Yes - Past Surgical History General: reports: Gastric surgery Ortho: reports: Spine surgery HEENT: reports: Tonsil/Adenoidectomy - HOSPITAL COURSE Hospital Course: The patient presented with normal vitals, normal white cell count. No systemic signs of sepsis. Nevertheless he had gram-negative bacteremia. Patient was started empiric antibiotic therapy, and we awaited sensitivities. Sensitivities finally came back from the ER stay the day before and was Pseudomonas. It was resistant to cefazolin but sensitive to everything else. As such he was changed from cefepime in the inpatient status to continue 10 more days of Levaquin in the outpatient status. It should be noted that the previous hospitalization resulted in E. coli UTI. During his stay, his pressure ulcers were reviewed. He had significant raw fresh ulcers from his previous stay that were present on admission. He states that sometimes he would crawl on the floor using his arms doing an Army crawl and that is how he got pressure ulcers on his knees. He had a pressure ulcer on the left lateral ischial tuberosity. Sacral ulcers. Sent home. Returns with all of those wounds being well taken care of, covered, no evidence of infection. He is due to get ureteral stents removed. I explained to him that these could be serving as a nidus of infection. He needs to make sure he follows up with urology to get those removed. He has been comfortable while here. His only issue is been requiring opioids for his chronic pain syndrome. He states that he ran out of medicines probably 2 months ago. He supposed to be on long-acting oxycodone and short acting oxycodone. When he was discharged with his last visit he was given a few tablets of Roxicodone. I have given him another 30 tablets of oxycodone, but explained I cannot discharge him on long-acting opioids. He really needs to establish himself with a primary care provider and pain clinic. He says he has an appoint with the pain clinic this coming month. He also asked for some probiotic capsules to go home on. I have written a prescription for those but warned him that his insu jm plan may not be able to pay for that. His other prescription is for 10 days of Levaquin. At discharge he is temperature is 36.9. Heart rate 93. Blood pressure 128/98. Respirations 18. 94% on room air. He is 6 foot tall, 72.5 kg. He is in good spirits. This entire hospitalization for him has been much better than the last hospitalization when there was quite a bit of pain, infection, decubitus ulcers. It was surprising that he had Pseudomonas bacteremia. Head and neck exam is remarkable for much of his teeth being gone and he has poor dentition. Neck has shotty adenopathy. But supple. Lungs are clear to auscultation and percussion and there is no respiratory effort. He is gesticulating spontaneously and showing me things using his hands and arms. Speech is normal, able to complete full sentences and he will spontaneously laugh and joke. Regular rate and rhythm. The abdomen is soft, nontender, normal bowel sounds. His last bowel movement was June 13. He was manually disimpacted by nursing and put on the bowel protocol. He has paraplegia from the lower extremities. He is alert, oriented to person place and time and situation. Greater than 30 minutes was spent coordinating discharge. - ALLERGIES Allergies/Adverse Reactions: Allergies Allergy/AdvReac Type Severity Reaction Status Date / Time morphine Allergy Intermediate terrors Verified 05/25/22 16:10 gabapentin Allergy Unknown Verified 05/25/22 16:10 ibuprofen Allergy Unknown Verified 05/25/22 16:10 - MEDICATIONS Home Medications: Ambulatory Orders Medication Instructions Recorded Confirmed Pregabalin [Lyrica] 300 mg PO 0600,1800 08/02/21 06/13/22 Baclofen [Lioresal] 10 mg PO TID 05/26/22 06/12/22 Duloxetine HCl [Cymbalta] 60 mg PO DAILY 05/26/22 06/12/22 Metoprolol Tartrate [Lopressor] 50 mg PO BIDWM 05/26/22 06/12/22 Oxycodone Myristate [Xtampza ER] 9 mg PO TID 05/26/22 06/12/22 oxyCODONE [Roxicodone] 5 mg PO Q8H PRN 05/26/22 06/12/22 Acetaminophen [Acetaminophen Extra 500 mg PO QID PRN #40 tablet 06/11/22 06/12/22 Strength] Ondansetron Odt [Zofran] 4 mg TL Q6H PRN #10 tablet 06/11/22 06/12/22 levoFLOXacin [Levaquin] 250 mg PO QD 10 Days #10 tablet 06/11/22 06/12/22 levoFLOXacin [Levaquin] 750 mg PO QD #30 tablet 06/14/22 L. Acidophilus/Pectin, Johnston 1 each PO BID #60 tablet 06/15/22 [Acidophilus-Pectin Captab] oxyCODONE [Roxicodone] 5 mg PO Q6H PRN #30 tablet 06/15/22 - LABS Result Diagrams: 06/12/22 12:03 06/12/22 12:03
[2022-06-15 15:21] VITALS: BP 154/101
== END 2022-06-15 15:32 | disposition home health service (06) | DRG 690 ==
LOC: EDUNIT# → ED 11:47 → MS2 13:09
PROVIDERS: ADMIT Specialist; ATTEND Specialist
DX: N12 Tubulo-interstitial nephritis, not specified as acute or chronic (principal); R78.81 Bacteremia; N31.9 Neuromuscular dysfunction of bladder, unspecified; N20.1 Calculus of ureter; Z20.822 Contact with and (suspected) exposure to COVID-19; G82.20 Paraplegia, unspecified; B96.5 Pseudomonas (aeruginosa) (mallei) (pseudomallei) as the cause of diseases classified elsewhere; I10 Essential (primary) hypertension; J45.909 Unspecified asthma, uncomplicated; K59.09 Other constipation; F32.A Depression, unspecified; M54.9 Dorsalgia, unspecified; L89.899 Pressure ulcer of other site, unspecified stage; G89.4 Chronic pain syndrome; K08.409 Partial loss of teeth, unspecified cause, unspecified class; T40.2X6A Underdosing of other opioids, initial encounter; M62.838 Other muscle spasm; L85.3 Xerosis cutis; R59.0 Localized enlarged lymph nodes; Z79.899 Other long term (current) drug therapy; Z80.9 Family history of malignant neoplasm, unspecified; Z82.3 Family history of stroke; Z82.49 Family history of ischemic heart disease and other diseases of the circulatory system; Z86.03 Personal history of neoplasm of uncertain behavior; Z86.14 Personal history of Methicillin resistant Staphylococcus aureus infection; Z87.891 Personal history of nicotine dependence; Z88.5 Allergy status to narcotic agent; Z88.6 Allergy status to analgesic agent; Z88.8 Allergy status to other drugs, medicaments and biological substances; Z96.0 Presence of urogenital implants
CPT/HCPCS: 36415; 80053; 81001; 83605; 85025; 87040; 87086; 87633; 96374; 96375; 99283; 99285; A9270; J1170; Q0162

== ENCOUNTER 2022-06-15 15:31 | Outpatient (CLI) | payer MEDICARE, MEDICAID | END 2022-06-15 15:32 | disposition home or self-care (01) | LOC: EMS 15:31 | PROVIDERS: ATTEND Specialist | DX: G82.20 Paraplegia, unspecified (principal); Z74.01 Bed confinement status | CPT/HCPCS: A0425; A0428 ==

== ENCOUNTER 2022-06-20 16:49 | Outpatient (CLI) | payer MEDICARE, MEDICAID | END 2022-06-20 16:50 | disposition critical access hospital (66) | LOC: EMS 16:49 | DX: N20.0 Calculus of kidney (principal); M54.9 Dorsalgia, unspecified; G89.29 Other chronic pain; G82.20 Paraplegia, unspecified; Z59.89 Other problems related to housing and economic circumstances | CPT/HCPCS: A0425; A0429 ==

== ENCOUNTER 2022-06-20 17:38 | Emergency (ER) | payer MEDICARE, MEDICAID ==
[2022-06-20] MEDS ORDERED: ONDANSETRON 4 MG/2 ML VIAL IVP STA (18:03)
[2022-06-20] MEDS ORDERED: SODIUM CHLORIDE 0.9% 1,000 ML IV STA (18:03)
[2022-06-20 18:04] LABS: BASOPHILS # (AUTO) 0.1 10^3/uL (0.0-0.1); BASOPHILS % (AUTO) 0.5 %; EOSINOPHILS # (AUTO) 0.1 10^3/uL (0.0-0.7); EOSINOPHILS % (AUTO) 1.4 %; HCT - HEMATOCRIT 40.5 % (42.0-52.0); HGB - HEMOGLOBIN 12.9 g/dL (14.0-18.0); LYMPHOCYTES # (AUTO) 1.2 10^3/uL (1.5-3.5); LYMPHOCYTES % (AUTO) 12.4 %; MEAN CORPUSCULAR HEMOGLOBIN 27.2 pg (27.0-31.0); MEAN CORPUSCULAR HGB CONC 31.9 g/dL (32.0-36.0); MEAN CORPUSCULAR VOLUME 85.4 fL (80.0-94.0); MEAN PLATELET VOLUME 11.4 fL (7.4-11.4); MONOCYTES # (AUTO) 0.5 10^3/uL (0.0-1.0); NEUTROPHILS # (AUTO) 7.7 10^3/uL (1.5-6.6); NEUTROPHILS % (AUTO) 78.4 %; PLT - PLATELET COUNT 357 10^3/uL (130-450); RED BLOOD COUNT 4.74 10^6/uL (4.70-6.10); RED CELL DISTRIBUTION WIDTH 15.4 % (12.0-15.0); WHITE BLOOD COUNT 9.8 x10^3/uL (4.8-10.8)
--- NOTE | 2022-06-20 18:04 | ED Physician Documentation ---
History of Present Illness - Stated complaint Stated Complaint: KIDNEY STONES - Additonal information Additional information: 47-year-old male presents emergency department for evaluation of nausea, vomiting and low back pain. This gentleman has a history of paraplegia caused by thoracic and lumbar schwannoma. He also has a longstanding history of renal calculi and bilateral ureter stents as well as a neurogenic bladder. This gentleman was admitted to the hospital on 12 June for Pseudomonas bacteremia as well as Pseudomonas UTI/pyelonephritis. The organism was found to be sensitive to cefepime and on discharge on 15 June he was prescribed a total duration of 10 days of Levaquin. He reports he continues to take that. Over the last 2 days he has had nausea and vomiting. Unable to keep anything down. He is also reporting low back pain. He is denying any fevers. Review of Systems Constitutional: denies: Fever Cardiac: denies: Chest pain / pressure, Palpitations Respiratory: denies: Dyspnea, Cough GI: reports: Abdominal Pain, Nausea, Vomiting : reports: Other (Neurogenic bladder, chronic indwelling Bowling catheter) Skin: denies: Rash, Lesions Musculoskeletal: reports: Reviewed and negative Neurologic: reports: Reviewed and negative PD PAST MEDICAL HISTORY - Past Medical History Cardiovascular: Hypertension, Murmur, Other Respiratory: Asthma Neuro: Other Endocrine/Autoimmune: None GI: Chronic constipation : Incontinence HEENT: None Psych: Depression Musculoskeletal: Chronic back pain, Other Derm: Other - Past Surgical History Past Surgical History: Yes General: Gastric surgery Ortho: Spine surgery HEENT: Tonsil/Adenoidectomy - Present Medications Home Medications: Ambulatory Orders Medication Instructions Recorded Confirmed Pregabalin [Lyrica] 300 mg PO 0600,1800 08/02/21 06/13/22 Baclofen [Lioresal] 10 mg PO TID 05/26/22 06/12/22 Duloxetine HCl [Cymbalta] 60 mg PO DAILY 05/26/22 06/12/22 Metoprolol Tartrate [Lopressor] 50 mg PO BIDWM 05/26/22 06/12/22 Oxycodone Myristate [Xtampza ER] 9 mg PO TID 05/26/22 06/12/22 Acetaminophen [Acetaminophen Extra 500 mg PO QID PRN #40 tablet 06/11/22 06/12/22 Strength] Ondansetron Odt [Zofran Odt] 4 mg TL Q6H PRN #10 tablet 06/11/22 06/12/22 levoFLOXacin [Levaquin] 250 mg PO QD 10 Days #10 tablet 06/11/22 06/12/22 levoFLOXacin [Levaquin] 750 mg PO QD #30 tablet 06/14/22 L. Acidophilus/Pectin, Harmon 1 each PO BID #60 tablet 06/15/22 [Acidophilus-Pectin Captab] Zinc Oxide [Triple Paste] 56.7 gm TP DAILY #57 gm 06/15/22 oxyCODONE [Roxicodone] 5 mg PO Q8H PRN #30 tab 06/15/22 - Allergies Allergies/Adverse Reactions: Allergies Allergy/AdvReac Type Severity Reaction Status Date / Time morphine Allergy Intermediate terrors Verified 06/20/22 18:07 gabapentin Allergy Unknown Verified 06/20/22 18:07 ibuprofen Allergy Unknown Verified 06/20/22 18:07 - Social History Does the pt smoke?: Yes Smoking Status: Former smoker Does the pt drink ETOH?: Yes Does the pt have substance abuse?: No - Immunizations Immunizations are current?: Yes - POLST Patient has POLST: No PD ED PE NORMAL - General General: Alert and oriented X 3 Results - Vitals Vitals: Vital Signs - 24 hr 06/20/22 06/20/22 06/20/22 17:57 18:35 20:09 Temperature 37.2 C Heart Rate 93 90 95 Respiratory 20 16 14 Rate Blood Pressure 161/103 H 156/98 H 155/97 H O2 Saturation 99 98 97 Oxygen O2 Source Room air - Labs Labs: Laboratory Tests 06/20/22 06/20/22 06/20/22 17:52 17:52 17:52 WBC 9.8 RBC 4.74 Hgb 12.9 L Hct 40.5 L MCV 85.4 MCH 27.2 MCHC 31.9 L RDW 15.4 H Plt Count 357 MPV 11.4 Neut # (Auto) 7.7 H Lymph # (Auto) 1.2 L [place] # (Auto) 0.5 Eos # (Auto) 0.1 Baso # (Auto) 0.1 Absolute Nucleated RBC 0.00 Nucleated RBC % 0.0 Sodium 134 L Potassium 3.6 Chloride 95 L Carbon Dioxide 18 L Anion Gap 21.0 H BUN 28 H Creatinine 1.1 Estimated GFR (MDRD) 72 L Glucose 74 Lactic Acid 1.0 Calcium 9.3 Total Bilirubin 1.4 H AST 13 ALT 12 Alkaline Phosphatase 63 Total Protein 7.3 Albumin 3.7 Globulin 3.6 Albumin/Globulin Ratio 1.0 Urine Color Urine Clarity Urine pH Ur Specific Darden Urine Protein Urine Glucose (UA) Urine Ketones Urine Occult Blood Urine Nitrite Urine Bilirubin Urine Urobilinogen Ur Leukocyte Esterase Urine RBC Urine WBC Ur Squamous Epith Cells Urine Bacteria Urine Culture Comments 06/20/22 18:45 WBC RBC Hgb Hct MCV MCH MCHC RDW Plt Count MPV Neut # (Auto) Lymph # (Auto) [place] # (Auto) Eos # (Auto) Baso # (Auto) Absolute Nucleated RBC Nucleated RBC % Sodium Potassium Chloride Carbon Dioxide Anion Gap BUN Creatinine Estimated GFR (MDRD) Glucose Lactic Acid Calcium Total Bilirubin AST ALT Alkaline Phosphatase Total Protein Albumin Globulin Albumin/Globulin Ratio Urine Color YELLOW Urine Clarity HAZY Urine pH 5.5 Ur Specific [place] >=1.030 H Urine Protein 100 H Urine Glucose (UA) NEGATIVE Urine Ketones >=80 H Urine Occult Blood LARGE H Urine Nitrite NEGATIVE Urine Bilirubin NEGATIVE Urine Urobilinogen 0.2 (NORMAL) Ur Leukocyte Esterase SMALL H Urine RBC TNTC H Urine WBC 11-25 H Ur Squamous Epith Cells NONE SEEN Urine Bacteria Few Urine Culture Comments INDICATED - Rads (name of study) CT abd Radiology: Final report received (Persistent right worse than left bilateral hydronephrosis and hydroureter extending to the level of the UVJ's. No obstructing stones are seen. Bilateral double-J ureter stents are again seen, positions unchanged. Fecal stasis in the colon with rectal wall thickening concerning for proctitis), See rad report PD MEDICAL DECISION MAKING - ED course Complexity details: reviewed results, re-evaluated patient, considered differential, d/w patient ED course: 47-year-old male who is a paraplegic presents to the emergency department for evaluation of lower back and abdominal pain. He is well-known to this emergency department was recently admitted for Pseudomonas bacteremia as well as pyelonephritis. He was discharged on 15 June and is currently completing a 10-day course of Levaquin. He states that for the last 2 days he has had some lower abdominal pain and vomiting. He is concerned that he has a return of marija l stones. Since discharge he has not yet scheduled with his urologist. Here in the emergency department he is afebrile and appears to be in his usual baseline health. Reassuringly CBC was completed. There is no leukocytosis. Renal function was preserved. His urine is showing a fair amount of [id number] male who is a paraplegic presents to the emergency department for evaluation of lower back and abdominal pain. He is well-known to this emergency department was recently admitted for Pseudomonas bacteremia as well as pyelonephritis. He was discharged on 15 June and is currently completing a 10-day course of Levaquin. He states that for the last 2 days he has had some lower abdominal pain and vomiting. He is concerned that he has a return of renal stones. Since discharge he has not yet scheduled with his urologist. Here in the emergency department he is afebrile and appears to be in his usual baseline health. Reassuringly CBC was completed. There is no leukocytosis. Renal function was preserved. His urine is showing a fair amount of WBC but rare bacteria. Unchanged from recent urinalysis. This likely represents a persistent pyuria rather than actual infection given the longstanding history of Bowling catheterization. We did obtain a CT scan of the abdomen. It shows unchanged bilateral ureter stents. He has persistent and unchanged right greater than left hydroureter and hydronephrosis. 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 At this time the patient is stable for discharge home. Blood cultures were obtained today and are pending but he reports compliance with the Levaquin which was started for the Pseudomonas bacteremia. We did not change the Bowling catheter today as the pyuria is chronic and persistent and not likely indicative of acute infection. Patient is advised that he must follow closely with his urologist to get the stents removed as they may be seeding persistent infection. Patient does not present as septic or acutely ill and is discharged home in stable condition Departure - Departure Disposition: 01 Home, Self Care Clinical Impression: Pyuria, Ureteral stent present, Paraplegia Hydronephrosis Qualifiers: Hydronephrosis type: other Qualified Code(s): N13.39 - Other hydronephrosis Condition: Stable Record reviewed to determine appropriate education?: Yes Comments: Yann sorenson came to the emergency department today because you have had some vomiting and pain in your lower abdomen and back. You are concerned that you have a return of kidney stones. You have recently been admitted to the hospital because you had a infection in your blood due to infection in the urine and kidneys. You need to complete the full course of Levaquin that was prescribed for you on discharge. The CT today does not show any kidney stones. Your urine has a condition called pyuria which simply means chronic white blood cells in it due to inflammation or infection but it does not appear that there is a new infection today. It is critical that you follow-up with your urologist. The ureter stents do need to be removed as they could be a source of seeding infection into your bloodstream and urine. The CT scan also shows you have a large amount of stool within your colon. I recommend that you take the MiraLAX until you have 4 or 5 watery bowel movements then you can resume taking it as needed. If you develop fevers, have black or bloody stools then you need to return immediately to the ER.
[2022-06-20 18:14] LABS: ALBUMIN 3.7 g/dL (3.2-5.5); BILIRUBIN,TOTAL 1.4 mg/dL (0.2-1.0); CALCIUM 9.3 mg/dL (8.5-10.3); CREATININE 1.1 mg/dL (0.6-1.2); POTASSIUM 3.6 mmol/L (3.5-5.0); TOTAL PROTEIN 7.3 g/dL (6.7-8.2)
[2022-06-20 18:56] LABS: GLUCOSE, URINE (UA) NEGATIVE (NEGATIVE); KETONES,URINE (UA) >=80 mg/dL (NEGATIVE); LEUKOCYTE ESTERASE, URINE SMALL (NEGATIVE); NITRITE,URINE NEGATIVE (NEGATIVE); OCCULT BLOOD,URINE LARGE (NEGATIVE); PH,URINE 5.5 PH (5.0-7.5); PROTEIN,URINE 100 mg/dL (NEGATIVE); UROBILINOGEN,URINE 0.2 (NORMAL) E.U./dL (NORMAL)
[2022-06-20 18:57] LABS: CLARITY,URINE HAZY (CLEAR)
[2022-06-20 19:03] LABS: BACTERIA,URINE Few /HPF (None Seen); BILIRUBIN,URINE NEGATIVE (NEGATIVE); ICTOTEST,URINE NEGATIVE; RBC,URINE TNTC /HPF (0-5); SQUAMOUS EPITHELIAL CELL,UR NONE SEEN (<= Few)
[2022-06-20] MEDS ORDERED: HYDROmorphone 1 MG/ML CARPUJECT IVP STA ×2 (19:45→21:39)
--- NOTE | 2022-06-20 20:12 | CT Report ---
PROCEDURE: ABDOMEN/PELVIS WO INDICATIONS: Nausea vomiting, low back pain. History of renal TECHNIQUE: Noncontrast 5 mm thick sections acquired from the diaphragms to the symphysis. 5 mm coronal and sagi ttal reformats were then performed. For radiation dose reduction, the following was used: automated exposure control, adjustment of mA and/or kV according to patient size. COMPARISON: 06/11/2022. FINDINGS: Image quality: Excellent. ABDOMEN: Lung bases: Mild right basilar dependent atelectasis is seen. Heart size is normal. Solid organs: Liver and spleen are normal in size. Gallbladder is within normal limits. Pancreas i s normal in contours. No adrenal nodules. Bilateral kidneys are normal in size. Bilateral double-J ureteral stents are again seen unchanged in position compared to prior study. Prominence of bilateral renal collecting systems and bilateral uret ers are seen extending to the level of UVJs. Nonobstructing right renal calculi are again seen unchan ged from prior study. Peritoneum and bowel: Unenhanced bowel loops demonstrate normal wall thickness and caliber. No free fluid or air. Fecal stasis throughout the colon is seen extending to distal sigmoid colon and rectum . Questionable rectal wall thickening is noted. Nodes and vessels: No retroperitoneal or mesenteric adenopathy by size criteria. Aorta and inferior vena cava are normal in caliber. Miscellaneous: No ventral hernias. PELVIS: Genitourinary: Mild circumferential bladder wall thickening is again seen without discrete bladder wa ll mass. No calcified bladder stones. Miscellaneous: No inguinal hernias or adenopathy. Bones: No suspicious bony lesions. No vertebral body compression fractures. IMPRESSION: 1. Persistent right worse than left bilateral hydronephrosis and hydroureter extending to the level o f UVJs. No obstructing stones are seen. Bilateral double-J ureteral stents are again seen, positions unchanged. 2. Fecal stasis in the colon with suggestion of rectal wall thickening concerning for proctitis. 3. Diffuse bladder wall thickening which may indicate cystitis versus chronic outlet obstruction. No discrete bladder wall mass. Reviewed by: Shashank Machado MD on 06/20/2022 8:11 PM PDT Approved by: Shashank Machado MD on 06/20/2022 8:11 PM PDT Station ID: [id number]
[2022-06-20 22:04] VITALS: BP 148/90
== END 2022-06-20 22:30 | disposition home or self-care (01) ==
LOC: EDUNIT# → ED 17:38
DX: R82.81 Pyuria (principal); N13.39 Other hydronephrosis; I10 Essential (primary) hypertension; G82.20 Paraplegia, unspecified; Z87.891 Personal history of nicotine dependence; Z96.0 Presence of urogenital implants
CPT/HCPCS: 36415; 74176; 80053; 81001; 83605; 85025; 87040; 87077; 87086; 87150; 87181; 96374; 96375; 96376; 99283; 99284; J1170

== ENCOUNTER 2022-06-20 22:25 | Outpatient (CLI) | payer MEDICARE, MEDICAID | END 2022-06-20 22:26 | disposition home or self-care (01) | LOC: EMS 22:25 | PROVIDERS: ATTEND Registered Nurse | DX: G82.20 Paraplegia, unspecified (principal); N20.0 Calculus of kidney | CPT/HCPCS: A0425; A0428 ==

== ENCOUNTER 2022-06-21 23:59 | Outpatient (CLI) | payer MEDICARE, MEDICAID | END 2022-06-22 | disposition left against medical advice (07) | LOC: EMS 23:59 | DX: R51.9 Headache, unspecified (principal); R42 Dizziness and giddiness; R11.0 Nausea; W06.XXXA Fall from bed, initial encounter; Y92.023 Bedroom in mobile home as the place of occurrence of the external cause ==

== ENCOUNTER 2022-06-22 00:57 | Outpatient (CLI) | payer MEDICARE, MEDICAID | END 2022-06-22 00:58 | disposition critical access hospital (66) | LOC: EMS 00:57 | DX: M54.9 Dorsalgia, unspecified (principal); W19.XXXA Unspecified fall, initial encounter; Y92.009 Unspecified place in unspecified non-institutional (private) residence as the place of occurrence of the external cause | CPT/HCPCS: A0425; A0429 ==

== ENCOUNTER 2022-06-22 01:27 | Emergency (ER) | payer MEDICARE, MEDICAID ==
[2022-06-22] MEDS ORDERED: HYDROcod/ACETAM 5/325 MG TABLET PO STA (01:39)
--- NOTE | 2022-06-22 01:41 | ED Physician Documentation ---
History of Present Illness - Stated complaint Stated Complaint: FELL OUT OF BED, BACK AND HEAD PAIN - History obtained from History obtained from: Patient, EMS - Additonal information Additional information: The patient is brought to the emergency department by EMS for chief complaint of "fell out of bed". The patient states he is not really sure how it happened but he was rolling over in bed and somehow, got to close the edge and fell off the bed onto the hard surface floor. He states he bumped his head on the floor but did not lose consciousness. He denies any headache or dizziness relating to this. He has a mild sore area on his left posterior superior scalp. The patient states he is having back pain but that is at baseline for him, though he would like something for it. He denies any extremity pain. No rib pain or spinal pain. The patient is a paraplegic at baseline. No other complaints at this time. Of note, the patient was recently discharged from the hospital With UTI and has been on Levaquin. A set of blood cultures done subsequently showed 1 positive bottle for coagulase-negative staph, with all of the bottles being negative. The patient denies any fevers or chills. He states that from the perspective of infection, he feels like he is getting better. Review of Systems Ten Systems: 10 systems reviewed and negative Constitutional: reports: Reviewed and negative Eyes: reports: Reviewed and negative Ears: reports: Reviewed and negative Nose: reports: Reviewed and negative Throat: reports: Reviewed and negative Cardiac: reports: Reviewed and negative Respiratory: reports: Reviewed and negative GI: reports: Reviewed and negative : reports: Reviewed and negative Skin: reports: Reviewed and negative Musculoskeletal: reports: Back pain Neurologic: reports: Reviewed and negative Psychiatric: reports: Reviewed and negative Endocrine: reports: Reviewed and negative Immunocompromised: reports: Reviewed and negative PD PAST MEDICAL HISTORY - Past Medical History Cardiovascular: Hypertension, Murmur, Other Respiratory: Asthma Neuro: Other Endocrine/Autoimmune: None GI: Chronic constipation : Incontinence HEENT: None Psych: Depression Musculoskeletal: Chronic back pain, Other Derm: Other - Past Surgical History Past Surgical History: Yes General: Gastric surgery Ortho: Spine surgery HEENT: Tonsil/Adenoidectomy - Present Medications Home Medications: Ambulatory Orders Medication Instructions Recorded Confirmed Pregabalin [Lyrica] 300 mg PO 0600,1800 08/02/21 06/13/22 Baclofen [Lioresal] 10 mg PO TID 05/26/22 06/12/22 Duloxetine HCl [Cymbalta] 60 mg PO DAILY 05/26/22 06/12/22 Metoprolol Tartrate [Lopressor] 50 mg PO BIDWM 05/26/22 06/12/22 Oxycodone Myristate [Xtampza ER] 9 mg PO TID 05/26/22 06/12/22 Acetaminophen [Acetaminophen Extra 500 mg PO QID PRN #40 tablet 06/11/22 06/12/22 Strength] Ondansetron Odt [Zofran Odt] 4 mg TL Q6H PRN #10 tablet 06/11/22 06/12/22 levoFLOXacin [Levaquin] 250 mg PO QD 10 Days #10 tablet 06/11/22 06/12/22 levoFLOXacin [Levaquin] 750 mg PO QD #30 tablet 06/14/22 L. Acidophilus/Pectin, [place] 1 each PO BID #60 tablet 06/15/22 [Acidophilus-Pectin Captab] Zinc Oxide [Triple Paste] 56.7 gm TP DAILY #57 gm 06/15/22 oxyCODONE [Roxicodone] 5 mg PO Q8H PRN #30 tab 06/15/22 - Allergies Allergies/Adverse Reactions: Allergies Allergy/AdvReac Type Severity Reaction Status Date / Time morphine Allergy Intermediate terrors Verified 06/20/22 18:07 gabapentin Allergy Unknown Verified 06/20/22 18:07 ibuprofen Allergy Unknown Verified 06/20/22 18:07 - Social History Does the pt smoke?: Yes Smoking Status: Former smoker Does the pt drink ETOH?: Yes Does the pt have substance abuse?: No - Immunizations Immunizations are current?: Yes - POLST Patient has POLST: No PD ED PE NORMAL - Vitals Vital signs reviewed: Yes - General General: Alert and oriented X 3, No acute distress, Well developed/nourished - HEENT HEENT: Atraumatic, PERRL, EOMI, Moist mucous membranes, Other (No contusion or swelling of scalp. No deformity of the skull.) - Neck Neck: Supple, no meningeal sign, No bony TTP - Cardiac Cardiac: RRR, No murmur - Respiratory Respiratory: No respiratory distress, Clear bilaterally - Abdomen Abdomen: Soft, Non tender, Non distended - Back Back: No spinal TTP - Derm Derm: Normal color, Warm and dry, No rash - Extremities Extremities: No deformity - Neuro Neuro: Alert and oriented X 3 - Psych Psych: Normal mood, Normal affect Results - Vitals Vitals: Vital Signs - 24 hr 06/22/22 01:30 Temperature 37.1 C Heart Rate 92 Respiratory 16 Rate Blood Pressure 156/110 H O2 Saturation 98 Oxygen O2 Source Room air PD MEDICAL DECISION MAKING - ED course Complexity details: considered differential, d/w patient ED course: The patient was given a tablet of Vicodin. He had a fairly minor injury and was not on any anticoagulants, and I did not feel that CT imaging was indicated. Patient stable for discharge home. We have discussed the usual indications for return. Departure - Departure Disposition: 01 Home, Self Care Clinical Impression: Fall from bed Qualifiers: Encounter type: initial encounter Qualified Code(s): W06.XXXA - Fall from bed, initial encounter Closed head injury Qualifiers: Encounter type: initial encounter Qualified Code(s): S09.90XA - Unspecified injury of head, initial encounter Condition: Stable Instructions: ED Head Injury Closed Comments: There is no evidence of serious injury tonight. You have been treated with a pain pill that might make you feel little sleepy. Please go back to bed and get plenty of rest. You may follow-up with your primary doctor as needed. Discharge Date/Time: 06/22/22 01:47
[2022-06-22 01:43] VITALS: BP 156/110
== END 2022-06-22 01:47 | disposition home or self-care (01) ==
LOC: ED 01:27
DX: S09.90XA Unspecified injury of head, initial encounter (principal); W06.XXXA Fall from bed, initial encounter; I10 Essential (primary) hypertension; Z87.891 Personal history of nicotine dependence
CPT/HCPCS: 99282; 99283; A9270

== ENCOUNTER 2022-06-22 01:51 | Outpatient (CLI) | payer MEDICARE, MEDICAID | END 2022-06-22 01:52 | disposition home or self-care (01) | LOC: EMS 01:51 | PROVIDERS: ATTEND Emergency Medicine | DX: M54.9 Dorsalgia, unspecified (principal); R15.9 Full incontinence of feces; W06.XXXA Fall from bed, initial encounter; G82.20 Paraplegia, unspecified | CPT/HCPCS: A0425; A0428 ==

== ENCOUNTER 2022-06-26 12:53 | Outpatient (CLI) | payer MEDICARE, MEDICAID | END 2022-06-26 12:54 | disposition short-term general hospital (02) | LOC: EMS 12:53 | DX: R00.0 Tachycardia, unspecified (principal); R10.9 Unspecified abdominal pain; Z96.0 Presence of urogenital implants; Z86.19 Personal history of other infectious and parasitic diseases; G82.20 Paraplegia, unspecified | CPT/HCPCS: A0425; A0429 ==

== ENCOUNTER 2022-07-03 20:06 | Outpatient (CLI) | payer MEDICARE, MEDICAID | END 2022-07-03 23:59 | disposition critical access hospital (66) | LOC: EMS 20:06 | DX: R10.12 Left upper quadrant pain (principal); R10.812 Left upper quadrant abdominal tenderness | CPT/HCPCS: A0425; A0429 ==

== ENCOUNTER 2022-07-03 20:30 | Emergency (ER) | payer MEDICARE, MEDICAID ==
--- NOTE | 2022-07-03 20:42 | ED Physician Documentation ---
History of Present Illness - Stated complaint Stated Complaint: RUQ ABD PX - Chief complaint Chief Complaint: Abd Pain - Additonal information Additional information: 47-year-old male presents emergency department for evaluation of acute onset left upper quadrant abdominal pain that began this evening after eating dinner. No fevers no vomiting. No cough. This patient is well-known to the ER. He is a paraplegic and has a chronic indwelling Bowling catheter. He also has a history of bacteremia as well as chronic bilateral ureter stents that have been in place for more than a year. He was seen at [facility] last week was reportedly given IV antibiotics and discharged home with a prescription for Levaquin. He was to follow-up as an outpatient to have the stents removed. Review of Systems Constitutional: denies: Fever, Chills Eyes: reports: Reviewed and negative Ears: reports: Reviewed and negative Throat: reports: Reviewed and negative Cardiac: reports: Reviewed and negative GI: reports: Abdominal Pain. denies: Nausea, Vomiting, Constipation, Diarrhea : reports: Reviewed and negative PD PAST MEDICAL HISTORY - Past Medical History Cardiovascular: Hypertension, Murmur, Other Respiratory: Asthma Neuro: Other Endocrine/Autoimmune: None GI: Chronic constipation : Incontinence HEENT: None Psych: Depression Musculoskeletal: Chronic back pain, Other Derm: Other - Past Surgical History Past Surgical History: Yes General: Gastric surgery Ortho: Spine surgery HEENT: Tonsil/Adenoidectomy - Present Medications Home Medications: Ambulatory Orders Medication Instructions Recorded Confirmed Pregabalin [Lyrica] 300 mg PO 0600,1800 08/02/21 06/13/22 Baclofen [Lioresal] 10 mg PO TID 05/26/22 06/12/22 Duloxetine HCl [Cymbalta] 60 mg PO DAILY 05/26/22 06/12/22 Metoprolol Tartrate [Lopressor] 50 mg PO BIDWM 05/26/22 06/12/22 Oxycodone Myristate [Xtampza ER] 9 mg PO TID 05/26/22 06/12/22 Acetaminophen [Acetaminophen Extra 500 mg PO QID PRN #40 tablet 06/11/22 Strength] Ondansetron Odt [Zofran Odt] 4 mg TL Q6H PRN #10 tablet 06/11/22 06/12/22 levoFLOXacin [Levaquin] 250 mg PO QD 10 Days #10 tablet 06/11/22 06/12/22 levoFLOXacin [Levaquin] 750 mg PO QD #30 tablet 06/14/22 L. Acidophilus/Pectin, [place] 1 each PO BID #60 tablet 06/15/22 [Acidophilus-Pectin Captab] Zinc Oxide [Triple Paste] 56.7 gm TP DAILY #57 gm 06/15/22 oxyCODONE [Roxicodone] 5 mg PO Q8H PRN #30 tab 06/15/22 - Allergies Allergies/Adverse Reactions: Allergies Allergy/AdvReac Type Severity Reaction Status Date / Time morphine Allergy Intermediate terrors Verified 07/03/22 20:38 gabapentin Allergy Unknown Verified 07/03/22 20:38 ibuprofen Allergy Unknown Verified 07/03/22 20:38 - Social History Does the pt smoke?: Yes Smoking Status: Former smoker Does the pt drink ETOH?: Yes Does the pt have substance abuse?: No - Immunizations Immunizations are current?: Yes - POLST Patient has POLST: No PD ED PE NORMAL - General General: Alert and oriented X 3, No acute distress - Neck Neck: Supple, no meningeal sign, No adenopathy - Cardiac Cardiac: RRR, No murmur - Respiratory Respiratory: No respiratory distress - Abdomen Abdomen: Normal bowel sounds, Soft. No: Non tender (LUQ abd pain) - Male Male : Other (Indwelling Bowling catheter yellow urine with sediment) - Back Back: No CVA TTP - Derm Derm: Normal color, Warm and dry - Extremities Extremities: No deformity, No tenderness to palpate - Neuro Neuro: Alert and oriented X 3, biztalk developer 2-12 intact Eye Opening: Spontaneous Motor: Obeys Commands Verbal: Oriented GCS Score: 15 Results - Vitals Vitals: Vital Signs - 24 hr 07/03/22 07/03/22 07/03/22 20:36 20:38 22:38 Temperature 37.1 C Heart Rate 88 90 82 Respiratory 16 16 16 Rate Blood Pressure 133/99 H 150/83 H O2 Saturation 95 97 98 Oxygen O2 Source Room air - Labs Labs: Laboratory Tests 07/03/22 07/03/22 20:48 20:48 WBC 7.6 RBC 4.80 Hgb 13.1 L Hct 41.6 L MCV 86.7 MCH 27.3 MCHC 31.5 L RDW 17.3 H Plt Count 408 MPV 11.3 Neut # (Auto) 5.1 Lymph # (Auto) 1.5 Moore # (Auto) 0.7 Eos # (Auto) 0.3 Baso # (Auto) 0.1 Absolute Nucleated RBC 0.00 Nucleated RBC % 0.0 Sodium 141 Potassium 4.1 Chloride 104 Carbon Dioxide 26 Anion Gap 11.0 BUN 32 H Creatinine 1.0 Estimated GFR (MDRD) 81 L Glucose 118 H Calcium 9.3 Total Bilirubin 0.5 AST 20 ALT 37 Alkaline Phosphatase 63 Total Protein 7.2 Albumin 3.6 Globulin 3.6 Albumin/Globulin Ratio 1.0 Lipase 46 PD MEDICAL DECISION MAKING - ED course Complexity details: reviewed results, re-evaluated patient, considered differential, d/w patient ED course: Well-appearing 47-year-old male who has a longstanding history of paraplegia, chronic indwelling Bowling catheter as well as a history of indwelling bilateral ureter stents secondary to a history of obstructive uropathy presents to the emergency department for evaluation of sudden onset left upper quadrant abdominal pain. No associated fevers or vomiting. Reports normal bowel movements. On abdominal exam there was some mild tenderness elicited with deeper palpation under the left lower lateral ribs. No obvious swelling or ecchymosis. I did obtain a CBC and electrolytes without worrisome abnormalities CGT of abdomen pending. My interpretation of it is that of significant constipation. Assuming no acute surgical findings br radiology, pt is likely stable for dc home. He is signed out to my colleague Dr. chester to f/u on CT results. Departure - Departure Clinical Impression: LUQ abdominal pain Constipation Qualifiers: Constipation type: unspecified constipation type Qualified Code(s): K59.00 - Constipation, unspecified Instructions: ED Constipation Comments: Yann sorenson are seen today in emergency department for sudden pain in the left upper quadrant of your abdomen. Your CBC and electrolytes did not show any worrisome findings. We did do a CT of your abdomen and no acute surgical process is seen however there is a large amount of stool seen within your transverse and descending colon. I do recommend that you begin taking your MiraLAX twice daily until you have 4 or 5 large watery bowel movements. Continue to follow-up closely with your primary care providers for longer-term management of your chronic medical conditions. Return to the ER should you develop any sudden severe abdominal pain uncontrolled vomiting or have any fevers.
[2022-07-03 20:52] LABS: BASOPHILS # (AUTO) 0.1 10^3/uL (0.0-0.1); BASOPHILS % (AUTO) 0.8 %; EOSINOPHILS # (AUTO) 0.3 10^3/uL (0.0-0.7); EOSINOPHILS % (AUTO) 3.4 %; HCT - HEMATOCRIT 41.6 % (42.0-52.0); HGB - HEMOGLOBIN 13.1 g/dL (14.0-18.0); LYMPHOCYTES # (AUTO) 1.5 10^3/uL (1.5-3.5); LYMPHOCYTES % (AUTO) 19.7 %; MEAN CORPUSCULAR HEMOGLOBIN 27.3 pg (27.0-31.0); MEAN CORPUSCULAR HGB CONC 31.5 g/dL (32.0-36.0); MEAN CORPUSCULAR VOLUME 86.7 fL (80.0-94.0); MEAN PLATELET VOLUME 11.3 fL (7.4-11.4); MONOCYTES # (AUTO) 0.7 10^3/uL (0.0-1.0); MONOCYTES % (AUTO) 9.1 %; NEUTROPHILS # (AUTO) 5.1 10^3/uL (1.5-6.6); NEUTROPHILS % (AUTO) 66.5 %; PLT - PLATELET COUNT 408 10^3/uL (130-450); RED CELL DISTRIBUTION WIDTH 17.3 % (12.0-15.0); WHITE BLOOD COUNT 7.6 x10^3/uL (4.8-10.8)
[2022-07-03 21:05] LABS: ALBUMIN 3.6 g/dL (3.2-5.5); BILIRUBIN,TOTAL 0.5 mg/dL (0.2-1.0); CALCIUM 9.3 mg/dL (8.5-10.3); POTASSIUM 4.1 mmol/L (3.5-5.0); TOTAL PROTEIN 7.2 g/dL (6.7-8.2)
[2022-07-03] MEDS ORDERED: KETOROLAC 30 MG/ML VIAL IVP STA (21:46)
--- NOTE | 2022-07-03 22:47 | CT Report ---
PROCEDURE: ABDOMEN/PELVIS WO INDICATIONS: LUQ abd pain TECHNIQUE: Noncontrast 5 mm thick sections acquired from the diaphragms to the symphysis. 5 mm coronal and sagi ttal reformats were then performed. For radiation dose reduction, the following was used: automated exposure control, adjustment of mA and/or kV according to patient size. COMPARISON: CT abdomen pelvis 06/20/2022, 06/11/2022, 05/25/2022, 04/13/2019. FINDINGS: Image quality: Diagnostic. Lung bases: There is mild atelectasis and scarring the lung bases. A pleural-based soft tissue nodule along the right lower lobe measuring up to 2.2 cm on series 3 image 18 appears similar in size aleksandr red to prior studies dating back to 2019. Heart: Heart is normal in size. ABDOMEN: Liver: No mass lesion. Gallbladder:The gallbladder is partially distended. There is mild gallbladder wall thickening withou t calcified gallstones or pericholecystic fluid. Biliary ducts: No biliary ductal dilatation. Pancreas: Unremarkable. Spleen: Normal in size. Adrenal Glands: No adrenal nodules. Kidneys and Ureters:Bilateral double-J ureteral stents are redemonstrated with the proximal coils in the renal pelves and distal coils in the bladder. There is decreased but mild residual bilateral hyd ronephrosis with perinephric and perirenal fat stranding. There is a small 0.3 cm nodule. Within the left kidney. On the right, there are a few linear clusters of nonobstructing renal stones are redemon strated. No definite ureteral stones. Stomach and Bowel: Stomach and small bowel loops are normal in caliber and wall thickness. The appen ifeanyi is normal in appearance. Moderate colonic stool distention is redemonstrated including within the rectum suggestive of obstipation with possible impaction distally. Peritoneum: No abnormal intraperitoneal fluid. No free air. Ventral Wall: No hernia. Abdominal Nodes: No retroperitoneal or mesenteric adenopathy by size criteria. Vessels: Aorta and inferior vena cava are normal in size. PELVIS: Pelvic Organs: Unremarkable. Bladder:There is a Bowling catheter within a nondistended urinary bladder. The distal course of the ur eteral stents are demonstrated within the bladder. There is concentric bladder wall thickening with m ild fat stranding suggestive of a cystitis. Pelvic Nodes: No enlarged lymph nodes. Miscellaneous: No inguinal hernias are seen. Bones: Visualized osseous structures demonstrate no suspicious focal lesions. IMPRESSION: 1. Decreased but persistent mild residual bilateral hydronephrosis. Bilateral ureteral stents appear similar in position. 2. Perinephric and perirenal fat stranding are nonspecific but may reflect a urinary tract infection. 3. Concentric bladder wall thickening with associated fat stranding suggestive of a cystitis. 4. Moderate stool distention throughout the colon including prominent distention in the rectum are aguilar ggestive of constipation with possible impaction distally. Reviewed by: Hossein Almanzar MD on 07/03/2022 10:46 PM PST Approved by: Hossein Almanzar MD on 07/03/2022 10:46 PM PST Station ID: [id number]
[2022-07-03] MEDS ORDERED: LACTULOSE 10 GM /15 ML UDC PO STA (23:00)
[2022-07-03] MEDS ORDERED: DICYCLOMINE 10 MG CAPSULE PO STA (23:09)
[2022-07-03] MEDS ORDERED: oxyCODONE/ACET 5/325 Prepack 4 PO STA (23:09)
--- NOTE | 2022-07-03 23:11 | ED Physician Documentation ---
ED Addendum - Addendum Addendum: 07/03/22 23:10 Signed out to me by nurse practitioner at shift change pending CT read. His urine is clear, he is nontender but still having a lot of pain. CT showing persistent findings previously noted but also constipation. We will treat with lactulose pending follow-up. He very strongly wanted some pain medication and we negotiated to a prepack of Percocet. Disposition: Discharged home Condition: Stable Diagnosis: 1. Abdominal pain 2. Constipation
[2022-07-03 23:40] VITALS: BP 144/80
== END 2022-07-03 23:41 | disposition home or self-care (01) ==
LOC: EDBD → ED 20:30
DX: R10.12 Left upper quadrant pain (principal); K59.00 Constipation, unspecified; G82.20 Paraplegia, unspecified; Z96.0 Presence of urogenital implants; I10 Essential (primary) hypertension; Z87.891 Personal history of nicotine dependence
CPT/HCPCS: 36415; 74176; 80053; 83690; 85025; 96374; 99283; 99284; A9270

== ENCOUNTER 2022-07-03 23:42 | Outpatient (CLI) | payer MEDICARE, MEDICAID | END 2022-07-03 23:59 | disposition home or self-care (01) | LOC: EMS 23:42 | PROVIDERS: ATTEND Emergency Medicine | DX: G82.20 Paraplegia, unspecified (principal); R53.1 Weakness; K59.00 Constipation, unspecified | CPT/HCPCS: A0425; A0428 ==

== ENCOUNTER 2022-07-08 06:56 | Outpatient (CLI) | payer MEDICARE, MEDICAID | END 2022-07-08 06:57 | disposition critical access hospital (66) | LOC: EMS 06:56 | DX: R07.89 Other chest pain (principal); R07.81 Pleurodynia | CPT/HCPCS: A0425; A0429 ==

== ENCOUNTER 2022-07-08 07:18 | Emergency (ER) | payer MEDICARE, MEDICAID ==
--- NOTE | 2022-07-08 07:31 | ED Physician Documentation ---
PD HPI CHEST PAIN - Stated complaint Stated Complaint: CP - History obtained from History obtained from: Patient - History of Present Illness Timing - onset: Last night Timing - onset during: Rest, Light activity (noted the chest pain worse with pushing himself up in bed with arms.) Timing - details: Abrupt onset, Still present, Waxing and waning Quality: Aching. No: Pressure, Tightness, Sharp Location: Left chest Radiation: Back Improved by: Rest Worsened by: Inspiration, Movement, Palpation Associated symptoms: No: Shortness of air, Nausea, Feeling faint / dizzy, Cough Similar symptoms before: Has not had sx before Recently seen: Admitted (was in [facility] for uti/pyelonephroitis few eeks ago. He states abx and home at that time. He states he was seen by Urology and they did not change stents. 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 ) Derm: Other - Past Surgical History Past Surgical History: Yes General: Gastric surgery Ortho: Spine surgery HEENT: Tonsil/Adenoidectomy - Present Medications Home Medications: Ambulatory Orders Medication Instructions Recorded Confirmed Pregabalin [Lyrica] 300 mg PO 0600,1800 08/02/21 07/08/22 Duloxetine HCl [Cymbalta] 60 mg PO DAILY 05/26/22 07/08/22 Metoprolol Tartrate [Lopressor] 50 mg PO BIDWM 05/26/22 07/08/22 Acetaminophen [Acetaminophen Extra 500 mg PO QID PRN #40 tablet 06/11/22 07/08/22 Strength] Acetaminophen [Acetaminophen Extra 500 mg PO QID PRN #50 tablet 07/08/22 Strength] methocarbamoL [Methocarbamol] 500 mg PO TID PRN 07/08/22 07/08/22 oxyCODONE [Roxicodone] 5 mg PO Q6H PRN #20 tablet 07/08/22 - Allergies Allergies/Adverse Reactions: Allergies Allergy/AdvReac Type Severity Reaction Status Date / Time morphine Allergy Intermediate terrors Verified 07/03/22 20:38 gabapentin Allergy Unknown Verified 07/03/22 20:38 ibuprofen AdvReac Unknown Verified 07/08/22 07:28 - Social History Does the pt smoke?: Yes Smoking Status: Former smoker Does the pt drink ETOH?: Yes Does the pt have substance abuse?: No - Immunizations Immunizations are current?: Yes - POLST Patient has POLST: No PD ED PE NORMAL - Vitals Vital signs reviewed: Yes - General General: Alert and oriented X 3, No acute distress, Well developed/nourished - HEENT HEENT: Pharynx benign - Neck Neck: Supple, no meningeal sign, No adenopathy - Cardiac Cardiac: RRR, No murmur - Respiratory Respiratory: No respiratory distress, Clear bilaterally, Other (there is chest wall tenderness left costal margin up to the left pectoral area. no rash, redness, sores. ) - Abdomen Abdomen: Soft, Non tender - Derm Derm: Normal color, Warm and dry, No rash - Extremities Extremities: Other (some muscle atrophy in both legs. no edema nor calf swelling. ) - Neuro Neuro: Alert and oriented X 3, Normal speech Results - Vitals Vitals: Vital Signs - 24 hr 07/08/22 07/08/22 07/08/22 07:28 07:36 10:00 Temperature 37.1 C Heart Rate 94 88 76 Respiratory 14 16 17 Rate Blood Pressure 148/109 H 144/112 H 113/80 O2 Saturation 99 97 95 Oxygen O2 Source Room air - EKG (time done) 07:26 Rhythm: NSR [place]: Normal Intervals: Normal [place] QRS: Normal Ischemia: Normal ST segments, ST elevation c/w repol. No: ST elevation c/w ischemia, ST depression - Labs Labs: Laboratory Tests 07/08/22 07/08/22 07/08/22 08:04 08:04 08:04 WBC 9.5 RBC 5.22 Hgb 14.3 Hct 44.4 MCV 85.1 MCH 27.4 MCHC 32.2 RDW 16.7 H Plt Count 270 MPV 11.7 H Neut # (Auto) 6.3 Lymph # (Auto) 2.1 [place] # (Auto) 0.6 Eos # (Auto) 0.4 Baso # (Auto) 0.1 Absolute Nucleated RBC 0.00 Nucleated RBC % 0.0 Sodium 138 Potassium 4.3 Chloride 102 Carbon Dioxide 27 Anion Gap 9.0 BUN 34 H Creatinine 0.9 Estimated GFR (MDRD) 91 Glucose 110 H Calcium 9.1 Total Bilirubin 0.3 AST 13 ALT 20 Alkaline Phosphatase 78 Troponin I High Sens 4.8 Total Protein 7.6 Albumin 3.9 Globulin 3.7 Albumin/Globulin Ratio 1.1 Lipase 65 H - Rads (name of study) chest xray Radiology: Prelim report reviewed (no acute process), See rad report PD MEDICAL DECISION MAKING - ED course Complexity details: considered differential (Pleuritic left chest pain and tenderness chest wall with normal EKG, troponin, chest x-ray. PERC score of 0. Unclear cause at this time. No URI symptoms. Prior gastritis/ulcer so avoid NSAIDs regularly. Will treat with Tylenol and oxycodone.), d/w patient Departure - Departure Disposition: 01 Home, Self Care Clinical Impression: Acute chest wall pain Condition: Stable Record reviewed to determine appropriate education?: Yes Instructions: ED Chest Pain Costochondritis Prescriptions: Acetaminophen [Acetaminophen Extra Strength] 500 mg PO QID PRN #50 tablet PRN Reason: Pain oxyCODONE [Roxicodone] 5 mg PO Q6H PRN #20 tablet PRN Reason: Pain Comments: Your chest x-ray, EKG, blood tests are normal without any signs of heart or lung abnormalities causing the pain. Unclear the reason but it seems like chest wall pain. I would suggest using some acetaminophen/Tylenol 4 times daily re gularly for the next 7 to 10 days as needed. To that add oxycodone every 6-8 hours if needed for worse pain. Hopefully this will diminish and improve over the next several days. Return or recheck if increasing pain, other symptoms such as fever cough or sore throat, or development of a rash etc. I sent your prescription to your preferred pharmacy, [facility]. I am prescribing a short course of narcotic pain medication for you. These are potentially dangerous and addictive medications that should be used carefully. These medications may constipate you. Take an [id number] stool softener such as docusate twice daily with plenty of water while taking these medications. If you go 24 hours without a bowel movement, take [id number] MiraLAX, per package instructions. Do not drink or drive while taking these medications. If you received narcotic or sedating medications while in the emergency department do not drive for 24 hours. Store this medication in a safe, secure place and out of reach of children. It is a violation of federal law to give or sell this medication to another person or to use in a manner other than prescribed. The ED will not refill narcotic prescriptions, including prescriptions lost or stolen. You can dispose of unwanted medications at the [facility] office or at several pharmacies such as [facility]. Discharge Date/Time: 07/08/22 10:35
[2022-07-08] MEDS ORDERED: HYDROmorphone 1 MG/ML CARPUJECT IVP STA (07:58)
[2022-07-08] MEDS ORDERED: KETOROLAC 15 MG/ML VIAL IVP STA (07:58)
[2022-07-08 08:10] LABS: BASOPHILS # (AUTO) 0.1 10^3/uL (0.0-0.1); BASOPHILS % (AUTO) 0.5 %; EOSINOPHILS # (AUTO) 0.4 10^3/uL (0.0-0.7); EOSINOPHILS % (AUTO) 3.7 %; HCT - HEMATOCRIT 44.4 % (42.0-52.0); HGB - HEMOGLOBIN 14.3 g/dL (14.0-18.0); LYMPHOCYTES # (AUTO) 2.1 10^3/uL (1.5-3.5); LYMPHOCYTES % (AUTO) 22.3 %; MEAN CORPUSCULAR HEMOGLOBIN 27.4 pg (27.0-31.0); MEAN CORPUSCULAR HGB CONC 32.2 g/dL (32.0-36.0); MEAN CORPUSCULAR VOLUME 85.1 fL (80.0-94.0); MEAN PLATELET VOLUME 11.7 fL (7.4-11.4); MONOCYTES # (AUTO) 0.6 10^3/uL (0.0-1.0); NEUTROPHILS # (AUTO) 6.3 10^3/uL (1.5-6.6); NEUTROPHILS % (AUTO) 66.8 %; PLT - PLATELET COUNT 270 10^3/uL (130-450); RED BLOOD COUNT 5.22 10^6/uL (4.70-6.10); RED CELL DISTRIBUTION WIDTH 16.7 % (12.0-15.0); WHITE BLOOD COUNT 9.5 x10^3/uL (4.8-10.8)
--- NOTE | 2022-07-08 08:31 | XRAY Report ---
PROCEDURE: Chest 1 View X-Ray INDICATIONS: chest pain TECHNIQUE: One view of the chest was acquired. COMPARISON: None. FINDINGS: Surgical changes and devices: None. Lungs and pleura: No pleural effusions or pneumothorax. Lungs are clear. Mediastinum: Mediastinal contours appear normal. Heart size is normal. Bones and chest wall: No suspicious bony lesions. Overlying soft tissues appear unremarkable. IMPRESSION: No acute cardiopulmonary findings Reviewed by: Boo Lawton MD on 07/08/2022 7:30 AM [facility] Approved by: Boo Lawton MD on 07/08/2022 7:30 AM [facility] Station ID: [id number]
[2022-07-08 08:38] LABS: ALBUMIN 3.9 g/dL (3.2-5.5); ALBUMIN/GLOBULIN RATIO 1.1 (1.0-2.2); BILIRUBIN,TOTAL 0.3 mg/dL (0.2-1.0); CALCIUM 9.1 mg/dL (8.5-10.3); CREATININE 0.9 mg/dL (0.6-1.2); POTASSIUM 4.3 mmol/L (3.5-5.0); TOTAL PROTEIN 7.6 g/dL (6.7-8.2)
[2022-07-08] MEDS ORDERED: HYDROmorphone 2 MG/ML VIAL IVP STA (09:12)
[2022-07-08 10:34] VITALS: BP 113/80
== END 2022-07-08 10:35 | disposition home or self-care (01) ==
LOC: EDUNIT# → ED 07:18
DX: R07.89 Other chest pain (principal); I10 Essential (primary) hypertension; Z87.891 Personal history of nicotine dependence
CPT/HCPCS: 36415; 71045; 80053; 83690; 84484; 85025; 93005; 96374; 96375; 96376; 99284; J1170

== ENCOUNTER 2022-07-08 10:35 | Outpatient (CLI) | payer MEDICARE, MEDICAID | END 2022-07-08 10:36 | disposition home or self-care (01) | LOC: EMS 10:35 | PROVIDERS: ATTEND Emergency Medicine | DX: R07.89 Other chest pain (principal); Z74.09 Other reduced mobility; G82.20 Paraplegia, unspecified | CPT/HCPCS: A0425; A0428 ==

== ENCOUNTER 2022-07-09 08:00 | Outpatient (CLI) | payer MEDICARE, MEDICAID | END 2022-07-09 23:59 | disposition home or self-care (01) | LOC: LAB.N 08:00 | PROVIDERS: ATTEND Physician Assistant Medical | DX: R39.11 Hesitancy of micturition (principal) | CPT/HCPCS: 87086 ==

== ENCOUNTER 2022-07-10 19:00 | Outpatient (CLI) | payer MEDICARE, MEDICAID | END 2022-07-10 19:01 | disposition critical access hospital (66) | LOC: EMS 19:00 | DX: R07.89 Other chest pain (principal); R82.90 Unspecified abnormal findings in urine | CPT/HCPCS: A0425; A0429 ==

== ENCOUNTER 2022-07-10 19:23 | Emergency (ER) | payer MEDICARE, MEDICAID ==
[2022-07-10 20:12] LABS: BASOPHILS % (AUTO) 0.5 %; EOSINOPHILS # (AUTO) 0.2 10^3/uL (0.0-0.7); EOSINOPHILS % (AUTO) 3.2 %; HCT - HEMATOCRIT 43.7 % (42.0-52.0); HGB - HEMOGLOBIN 13.9 g/dL (14.0-18.0); LYMPHOCYTES # (AUTO) 1.2 10^3/uL (1.5-3.5); LYMPHOCYTES % (AUTO) 18.5 %; MEAN CORPUSCULAR HEMOGLOBIN 26.9 pg (27.0-31.0); MEAN CORPUSCULAR HGB CONC 31.8 g/dL (32.0-36.0); MEAN CORPUSCULAR VOLUME 84.5 fL (80.0-94.0); MEAN PLATELET VOLUME 12.6 fL (7.4-11.4); MONOCYTES # (AUTO) 0.4 10^3/uL (0.0-1.0); MONOCYTES % (AUTO) 6.3 %; NEUTROPHILS # (AUTO) 4.4 10^3/uL (1.5-6.6); NEUTROPHILS % (AUTO) 71.3 %; PLT - PLATELET COUNT 251 10^3/uL (130-450); RED BLOOD COUNT 5.17 10^6/uL (4.70-6.10); RED CELL DISTRIBUTION WIDTH 16.7 % (12.0-15.0); WHITE BLOOD COUNT 6.2 x10^3/uL (4.8-10.8)
[2022-07-10] MEDS ORDERED: KETOROLAC 30 MG/ML VIAL IVP STA (20:14)
[2022-07-10] MEDS ORDERED: HYDROmorphone 1 MG/ML CARPUJECT IVP STA (20:14)
[2022-07-10 20:24] LABS: ALBUMIN/GLOBULIN RATIO 1.1 (1.0-2.2); BILIRUBIN,TOTAL 0.6 mg/dL (0.2-1.0); CALCIUM 9.7 mg/dL (8.5-10.3); POTASSIUM 4.3 mmol/L (3.5-5.0); TOTAL PROTEIN 7.7 g/dL (6.7-8.2)
[2022-07-10 20:24] LABS: BILIRUBIN,URINE NEGATIVE (NEGATIVE); GLUCOSE, URINE (UA) NEGATIVE (NEGATIVE); KETONES,URINE (UA) NEGATIVE (NEGATIVE); LEUKOCYTE ESTERASE, URINE SMALL (NEGATIVE); NITRITE,URINE NEGATIVE (NEGATIVE); OCCULT BLOOD,URINE LARGE (NEGATIVE); PH,URINE 7.5 PH (5.0-7.5); PROTEIN,URINE 100 mg/dL (NEGATIVE); UROBILINOGEN,URINE 1 (NORMAL) E.U./dL (NORMAL)
[2022-07-10 20:25] LABS: CLARITY,URINE HAZY (CLEAR)
[2022-07-10 20:34] LABS: BACTERIA,URINE Rare /HPF (None Seen); RBC,URINE TNTC /HPF (0-5); SQUAMOUS EPITHELIAL CELL,UR NONE SEEN (<= Few)
--- NOTE | 2022-07-10 20:34 | ED Physician Documentation ---
History of Present Illness - Stated complaint Stated Complaint: L SIDE PX - Chief complaint Chief Complaint: Abd Pain - History obtained from History obtained from: Patient - Additonal information Additional information: Patient is a 47-year-old with a history of paraplegia presenting for evaluation of left-sided chest and upper abdominal pain that is been present for few days. Patient was seen in the ER 2 days ago for this pain with a negative work-up. He was given a prescription for Percocet which she states was helping with the pain. He states that he is out of the medication and the pain is increased again. He did see his primary care doctor yesterday and they did talk about this pain.He reports that the pain is worse with certain movements. He denies nausea or vomiting. His urine has not changed in appearance in his catheter. He denies fever. He had a bowel movement this morning that was normal for him.He denies cough, congestion or difficulty breathing.He has also been recen tly seen for abdominal complaints and has bilateral ureter stents in. He has had recent CTs which showed no changes - Most recently June 20 [address] scans of the abdomen and pelvis. Review of Systems Constitutional: denies: Fever Cardiac: reports: Chest pain / pressure Respiratory: denies: Dyspnea GI: reports: Abdominal Pain. denies: Vomiting : reports: Hematuria (Valentine-tinged urine) Neurologic: denies: Headache PD PAST MEDICAL HISTORY - Past Medical History Past Medical History: Yes Cardiovascular: Hypertension, Murmur, Other Respiratory: Asthma Neuro: Other Endocrine/Autoimmune: None GI: Chronic constipation : Incontinence HEENT: None Psych: Depression Musculoskeletal: Chronic back pain, Other Derm: Other - Past Surgical History Past Surgical History: Yes General: Gastric surgery Ortho: Spine surgery HEENT: Tonsil/Adenoidectomy - Present Medications Home Medications: Ambulatory Orders Medication Instructions Recorded Confirmed Pregabalin [Lyrica] 300 mg PO 0600,1800 08/02/21 07/08/22 Duloxetine HCl [Cymbalta] 60 mg PO DAILY 05/26/22 07/08/22 Metoprolol Tartrate [Lopressor] 50 mg PO BIDWM 05/26/22 07/08/22 Acetaminophen [Acetaminophen Extra 500 mg PO QID PRN #40 tablet 06/11/22 07/08/22 Strength] Acetaminophen [Acetaminophen Extra 500 mg PO QID PRN #50 tablet 07/08/22 Strength] methocarbamoL [Methocarbamol] 500 mg PO TID PRN 07/08/22 07/08/22 oxyCODONE [Roxicodone] 5 mg PO Q6H PRN #20 tablet 07/08/22 Lidocaine Patch 5% [Lidoderm Patch] 1 patch TOP DAILY PRN #10 patch 07/10/22 - Allergies Allergies/Adverse Reactions: Allergies Allergy/AdvReac Type Severity Reaction Status Date / Time morphine Allergy Intermediate terrors Verified 07/10/22 19:27 gabapentin Allergy Unknown Verified 07/10/22 19:27 ibuprofen AdvReac Unknown Verified 07/10/22 19:27 - Social History Does the pt smoke?: Yes Smoking Status: Current every day smoker Does the pt drink ETOH?: Yes Does the pt have substance abuse?: No - Immunizations Immunizations are current?: Yes - POLST Patient has POLST: No PD ED PE NORMAL - General General: Alert and oriented X 3, No acute distress, Well developed/nourished - HEENT HEENT: Atraumatic, Moist mucous membranes - Neck Neck: Supple, no meningeal sign - Cardiac Cardiac: RRR, Strong equal pulses - Respiratory Respiratory: No respiratory distress, Clear bilaterally - Abdomen Abdomen: Soft, Non distended, Other (Mild left upper quadrant and left lower c hest wall tenderness to palpation with no deformities, no bruising) - Derm Derm: Warm and dry Results - Vitals Vitals: Vital Signs - 24 hr 07/10/22 07/10/22 19:27 22:26 Temperature 37 C 36.8 C Heart Rate 95 81 Respiratory 17 18 Rate Blood Pressure 148/94 H 141/88 H O2 Saturation 96 97 Oxygen O2 Source Room air - EKG (time done) 2105 Rate: Rate (enter#) (103) Rhythm: Sinus tachycardia [place]: Normal Ischemia: No: ST elevation c/w ischemia - Labs Labs: Laboratory Tests 07/10/22 07/10/22 07/10/22 19:41 20:07 20:07 WBC 6.2 RBC 5.17 Hgb 13.9 L Hct 43.7 MCV 84.5 MCH 26.9 L MCHC 31.8 L RDW 16.7 H Plt Count 251 MPV 12.6 H Neut # (Auto) 4.4 Lymph # (Auto) 1.2 L [place] # (Auto) 0.4 Eos # (Auto) 0.2 Baso # (Auto) 0.0 Absolute Nucleated RBC 0.00 Nucleated RBC % 0.0 Sodium 140 Potassium 4.3 Chloride 101 Carbon Dioxide 28 Anion Gap 11.0 BUN 26 H Creatinine 1.0 Estimated GFR (MDRD) 81 L Glucose 110 H Calcium 9.7 Total Bilirubin 0.6 AST 17 ALT 19 Alkaline Phosphatase 97 Troponin I High Sens Total Protein 7.7 Albumin 4.0 Globulin 3.7 Albumin/Globulin Ratio 1.1 Urine Color LT RED Urine Clarity HAZY Urine pH 7.5 Ur Specific Wells 1.020 Urine Protein 100 H Urine Glucose (UA) NEGATIVE Urine Ketones NEGATIVE Urine Occult Blood LARGE H Urine Nitrite NEGATIVE Urine Bilirubin NEGATIVE Urine Urobilinogen 1 (NORMAL) Ur Leukocyte Esterase SMALL H Urine RBC TNTC H Urine WBC 4-5 Ur Squamous Epith Cells NONE SEEN Urine Bacteria Rare Ur Microscopic Review INDICATED Urine Culture Comments INDICATED 07/10/22 20:07 WBC RBC Hgb Hct MCV MCH MCHC RDW Plt Count MPV Neut # (Auto) Lymph # (Auto) [place] # (Auto) Eos # (Auto) Baso # (Auto) Absolute Nucleated RBC Nucleated RBC % Sodium Potassium Chloride Carbon Dioxide Anion Gap BUN Creatinine Estimated GFR (MDRD) Glucose Calcium Total Bilirubin AST ALT Alkaline Phosphatase Troponin I High Sens 3.9 Total Protein Albumin Globulin Albumin/Globulin Ratio Urine Color Urine Clarity Urine pH Ur Specific Wells Urine Protein Urine Glucose (UA) Urine Ketones Urine Occult Blood Urine Nitrite Urine Bilirubin Urine Urobilinogen Ur Leukocyte Esterase Urine RBC Urine WBC Ur Squamous Epith Cells Urine Bacteria Ur Microscopic Review Urine Culture Comments PD MEDICAL DECISION MAKING - ED course Complexity details: reviewed results, re-evaluated patient, d/w patient ED course: Patient with left lower chest and upper abdominal pain that is been present for several days. He is was recently seen in the ER for the same symptoms with a negative work-up.His labs again today are reassuring with no signs of cardiac ischemia.He does have a history of bilateral ureter stents and there is no signs of kidney compromise or urinary tract infection. He is not septic appearing. He appears quite comfortable while laying in the stretcher and his pain is Reproducible on exam. I do not suspect a surgical process or intra-abdominal i nfection. His chest x-ray is clear. I did advise close follow up with his PCP and encouraged continued supportive care. Departure - Departure Disposition: Home, Self Care Clinical Impression: Chest wall pain Condition: Stable Instructions: ED Chest Pain Atypical Unkn Cause Prescriptions: Lidocaine Patch 5% [Lidoderm Patch] 1 patch TOP DAILY PRN #10 patch PRN Reason: pain Comments: Your chest x-ray, labs and EKG are reassuring and do not show signs of an issue with your heart or lungs.Your kidneys are also functioning well and I do not see signs of a urine infection.Your pain is likely musculoskeletal as it is worse when you do certain movements. I would recommend lidocaine patches and acetaminophen for pain. You may also want to try ice or heat to the area. I would be cautious with movements that may irritate this area further. I would recommend follow-up with your primary care doctor.I have sent a prescription for lidocaine patches to [facility] in [place]. Discharge Date/Time: 07/10/22 22:26
--- NOTE | 2022-07-10 21:21 | XRAY Report ---
PROCEDURE: Chest 1 View X-Ray INDICATIONS: CP TECHNIQUE: One view of the chest was acquired. COMPARISON: 07/08/2022. FINDINGS: Surgical changes and devices: None. Lungs and pleura: No pleural effusions or pneumothorax. Lungs are clear. Mediastinum: Mediastinal contours appear normal. Heart size is normal. Bones and chest wall: No suspicious bony lesions. Overlying soft tissues appear unremarkable. IMPRESSION: 1. No acute cardiopulmonary disease. Reviewed by: Hossein Almanzar MD on 07/10/2022 9:20 PM [facility] Approved by: Hossein Almanzar MD on 07/10/2022 9:20 PM [facility] Station ID: [id number]
[2022-07-10] MEDS ORDERED: oxyCODONE 5 MG TABLET PO STA (21:26)
[2022-07-10] MEDS ORDERED: LIDOCAINE PATCH 5% TOP STA (21:28)
[2022-07-10 22:27] VITALS: BP 141/88
== END 2022-07-10 22:26 | disposition home or self-care (01) ==
LOC: EDUNIT# → ED 19:23
DX: R07.89 Other chest pain (principal); R10.12 Left upper quadrant pain; R31.9 Hematuria, unspecified; R00.0 Tachycardia, unspecified; G82.20 Paraplegia, unspecified; I10 Essential (primary) hypertension; Z96.0 Presence of urogenital implants; F17.200 Nicotine dependence, unspecified, uncomplicated
CPT/HCPCS: 36415; 71045; 80053; 81001; 84484; 85025; 87086; 93005; 99284; A9270; J1170; 81003

== ENCOUNTER 2022-07-10 22:25 | Outpatient (CLI) | payer MEDICARE, MEDICAID | END 2022-07-10 22:26 | disposition home or self-care (01) | LOC: EMS 22:25 | PROVIDERS: ATTEND Emergency Medicine | DX: R07.89 Other chest pain (principal); G82.20 Paraplegia, unspecified | CPT/HCPCS: A0425; A0428 ==

== ENCOUNTER 2022-07-11 19:47 | Outpatient (CLI) | payer MEDICARE, MEDICAID | END 2022-07-11 19:48 | disposition short-term general hospital (02) | LOC: EMS 19:47 | DX: R07.81 Pleurodynia (principal) | CPT/HCPCS: A0425; A0427 ==

== ENCOUNTER 2022-07-12 10:42 | Outpatient (CLI) | payer MEDICARE, MEDICAID | END 2022-07-12 10:43 | disposition critical access hospital (66) | LOC: EMS 10:42 | DX: R07.89 Other chest pain (principal); R07.81 Pleurodynia | CPT/HCPCS: A0425; A0429 ==

== ENCOUNTER 2022-07-12 11:08 | Emergency (ER) | payer MEDICARE, MEDICAID ==
[2022-07-12] MEDS ORDERED: KETOROLAC 15 MG/ML VIAL IVP STA (11:41)
--- NOTE | 2022-07-12 11:44 | ED Physician Documentation ---
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 He says it has been migratory but generally beneath the left rib cage. It is worse with movement and deep breathing but not after eating. He is short of breath with it. He denies fevers or chills. He has been seen several times for this, a few times here and also yesterday at [facility]. Extensive testing has been done including CAT scan of the belly, multiple episodes of lab work including troponins. No specific diagnosis has been found except for the diagnosis of exclusion of chest wall pain. Review of Systems Ten Systems: 10 systems reviewed and negative Constitutional: reports: Reviewed and negative Nose: reports: Reviewed and negative Cardiac: reports: Reviewed and negative Respiratory: reports: Reviewed and negative PD PAST MEDICAL HISTORY - Past Medical History Cardiovascular: Hypertension, Murmur, Other Respiratory: Asthma Neuro: Other Endocrine/Autoimmune: None GI: Chronic constipation : Incontinence HEENT: None Psych: Depression Musculoskeletal: Chronic back pain, Other Derm: Other - Past Surgical History Past Surgical History: Yes General: Gastric surgery Ortho: Spine surgery HEENT: Tonsil/Adenoidectomy - Present Medications Home Medications: Ambulatory Orders Medication Instructions Recorded Confirmed Pregabalin [Lyrica] 300 mg PO 0600,1800 08/02/21 07/08/22 Duloxetine HCl [Cymbalta] 60 mg PO DAILY 05/26/22 07/08/22 Metoprolol Tartrate [Lopressor] 50 mg PO BIDWM 05/26/22 07/08/22 Acetaminophen [Acetaminophen Extra 500 mg PO QID PRN #40 tablet 06/11/22 07/08/22 Strength] Acetaminophen [Acetaminophen Extra 500 mg PO QID PRN #50 tablet 07/08/22 Strength] methocarbamoL [Methocarbamol] 500 mg PO TID PRN 07/08/22 07/08/22 oxyCODONE [Roxicodone] 5 mg PO Q6H PRN #20 tablet 07/08/22 Lidocaine Patch 5% [Lidoderm Patch] 1 patch TOP DAILY PRN #10 patch 11/22/22 - Allergies Allergies/Adverse Reactions: Allergies Allergy/AdvReac Type Severity Reaction Status Date / Time morphine Allergy Intermediate terrors Verified 07/10/22 19:27 gabapentin Allergy Unknown Verified 07/10/22 19:27 ibuprofen AdvReac Unknown Verified 07/10/22 19:27 - Social History Does the pt smoke?: Yes Smoking Status: Current every day smoker Does the pt drink ETOH?: Yes Does the pt have substance abuse?: No - Immunizations Immunizations are current?: Yes - POLST Patient has POLST: No PD ED PE NORMAL - Vitals Vital signs reviewed: Yes - General General: Alert and oriented X 3, No acute distress - Neck Neck: Supple, no meningeal sign, No bony TTP - Cardiac Cardiac: RRR, No murmur - Respiratory Respiratory: No respiratory distress, Other (He winces with deep breathing, but breathing is nonlabored. Lungs are clear.) - Abdomen Abdomen: Soft, Non tender - Neuro Neuro: Alert and oriented X 3, Normal speech Results - Vitals Vitals: Vital Signs - 24 hr 07/12/22 11:20 Temperature 36.6 C Heart Rate 91 Respiratory 18 Rate Blood Pressure 141/99 H O2 Saturation 99 Oxygen O2 Source Room air - EKG (time done) 1151 Rate: Rate (enter#) (87) Rhythm: NSR [place]: Normal Intervals: Normal MO QRS: Normal Ischemia: Non specific changes. No: ST elevation c/w ischemia, ST depression - Labs Labs: Laboratory Tests 07/12/22 07/12/22 12:01 12:01 WBC 7.8 RBC 4.56 L Hgb 12.5 L Hct 39.4 L MCV 86.4 MCH 27.4 MCHC 31.7 L RDW 17.1 H Plt Count 208 MPV 13.1 H Neut # (Auto) 6.0 Lymph # (Auto) 1.1 L [place] # (Auto) 0.4 Eos # (Auto) 0.3 Baso # (Auto) 0.1 Absolute Nucleated RBC 0.00 Nucleated RBC % 0.0 Sodium 142 Potassium 4.4 Chloride 106 Carbon Dioxide 27 Anion Gap 9.0 BUN 33 H Creatinine 0.8 Estimated GFR (MDRD) 105 Glucose 100 Calcium 9.3 Total Bilirubin 0.5 AST 15 ALT 14 Alkaline Phosphatase 75 Total Protein 6.8 Albumin 3.6 Globulin 3.2 Albumin/Globulin Ratio 1.1 Lipase 42 PD MEDICAL DECISION MAKING - ED course ED course: 47-year-old gentleman with now almost subacute left-sided chest wall pain. Likely musculoskeletal based on exam and history. That said given his paraplegia PE is also a concern and that has not yet been ruled out so we will CT his chest. Departure - Departure Disposition: 01 Home, Self Care Clinical Impression: Chest wall pain Condition: Good Record reviewed to determine appropriate education?: Yes Instructions: ED Strain Chest Wall Comments: Your CT with contrast today has ruled out blood clots and other vascular issues that might cause your pain, I agree with the physician at [facility] and the previous physicians here, the pain is from your chest wall, the muscles. Use heat and gentle stretching. Follow-up with your primary care physician. Return as needed for new or worsening symptoms.
[2022-07-12] MEDS ORDERED: iohexoL-300 100 ML VIAL ONE (11:47)
[2022-07-12 12:13] LABS: BASOPHILS # (AUTO) 0.1 10^3/uL (0.0-0.1); BASOPHILS % (AUTO) 0.6 %; EOSINOPHILS # (AUTO) 0.3 10^3/uL (0.0-0.7); EOSINOPHILS % (AUTO) 3.3 %; HCT - HEMATOCRIT 39.4 % (42.0-52.0); HGB - HEMOGLOBIN 12.5 g/dL (14.0-18.0); LYMPHOCYTES # (AUTO) 1.1 10^3/uL (1.5-3.5); LYMPHOCYTES % (AUTO) 13.9 %; MEAN CORPUSCULAR HEMOGLOBIN 27.4 pg (27.0-31.0); MEAN CORPUSCULAR HGB CONC 31.7 g/dL (32.0-36.0); MEAN CORPUSCULAR VOLUME 86.4 fL (80.0-94.0); MEAN PLATELET VOLUME 13.1 fL (7.4-11.4); MONOCYTES # (AUTO) 0.4 10^3/uL (0.0-1.0); MONOCYTES % (AUTO) 5.6 %; NEUTROPHILS % (AUTO) 76.5 %; PLT - PLATELET COUNT 208 10^3/uL (130-450); RED BLOOD COUNT 4.56 10^6/uL (4.70-6.10); RED CELL DISTRIBUTION WIDTH 17.1 % (12.0-15.0); WHITE BLOOD COUNT 7.8 x10^3/uL (4.8-10.8)
[2022-07-12 12:24] LABS: ALBUMIN 3.6 g/dL (3.2-5.5); ALBUMIN/GLOBULIN RATIO 1.1 (1.0-2.2); BILIRUBIN,TOTAL 0.5 mg/dL (0.2-1.0); CALCIUM 9.3 mg/dL (8.5-10.3); CREATININE 0.8 mg/dL (0.6-1.2); POTASSIUM 4.4 mmol/L (3.5-5.0); TOTAL PROTEIN 6.8 g/dL (6.7-8.2)
[2022-07-12] MEDS ORDERED: iohexoL-300 100 ML VIAL IVP ONE (12:53)
[2022-07-12] MEDS ORDERED: HYDROmorphone 1 MG/ML CARPUJECT IVP STA (12:55)
--- NOTE | 2022-07-12 13:05 | CT Report ---
PROCEDURE: ANGIO CHEST W/WO INDICATIONS: L chest wall pain, PE protocol CONTRAST: 80ml omni 300 TECHNIQUE: After the administration of intravenous contrast, 2 mm axial images were acquired from the pulmonary apices to the posterior costophrenic angles during the arterial phase. In addition, 1 mm lung kernel and 5 mm soft tissue kernel reconstructions were performed. 3-dimensional coronal oblique maximum int ensity projection (MIP) reformats, 8 mm axial MIP, and 5 mm coronal and sagittal MPR reformats were t hen performed through the thorax. For radiation dose reduction, the following was used: automated exp osure control, adjustment of mA and/or kV according to patient size. COMPARISON: Correlation is made with chest radiograph 07/10/2022. Correlation is also made with the overlapping portions of the abdomen and pelvis CT, 07/03/2022. FINDINGS: Image quality: Excellent. Pulmonary arteries: Pulmonary arteries are normal in size, and demonstrate no intraluminal filling d efects to suggest central pulmonary embolism. Lungs and pleura: Likely subpleural atelectasis can be seen on the right laterally. No pleural effusi ons or pneumothorax. Central and peripheral airways are patent. Mediastinum: Heart size is normal, without pericardial effusion. No mediastinal or hilar adenopathy . Thoracic aorta is normal in caliber and enhancement. Esophagus is normal in caliber, without hiat al hernia. Bones and chest wall: No suspicious bony lesions. In this patient with this given history, scrutiny is given to the left ribs. No left rib fractures or other significant abnormalities can be seen. No s ignificant left chest wall abnormality is seen. Age-appropriate degenerative changes are seen. Ribs and thoracic spine appear intact throughout. No axillary or supraclavicular adenopathy. The thyroi d is normal in size and there are no incidental findings. Abdomen: Visualized upper abdominal solid organs appear normal in the early arterial phase of enhanc ement. IMPRESSION: Negative for pulmonary embolus and. A cause of left chest wall pain is not seen. Reviewed by: Sravan Bowen MD on 07/12/2022 12:04 PM [facility] Approved by: Sravan Bowen MD on 07/12/2022 12:04 PM [facility] Station ID: [id number]
[2022-07-12 13:52] VITALS: BP 128/85
== END 2022-07-12 14:30 | disposition home or self-care (01) ==
LOC: EDUNIT# → ED 11:08
DX: R07.89 Other chest pain (principal); G82.20 Paraplegia, unspecified; F17.200 Nicotine dependence, unspecified, uncomplicated
CPT/HCPCS: 36415; 80053; 83690; 85025; 93005; 96374; 96375; 99283

== ENCOUNTER 2022-07-12 14:24 | Outpatient (CLI) | payer MEDICARE, MEDICAID | END 2022-07-12 14:25 | disposition home or self-care (01) | LOC: EMS 14:24 | PROVIDERS: ATTEND Emergency Medicine | DX: S29.011A Strain of muscle and tendon of front wall of thorax, initial encounter (principal); X58.XXXA Exposure to other specified factors, initial encounter; G82.20 Paraplegia, unspecified | CPT/HCPCS: A0425; A0428 ==

== ENCOUNTER 2022-07-12 20:28 | Outpatient (CLI) | payer MEDICARE, MEDICAID | END 2022-07-12 20:29 | disposition critical access hospital (66) | LOC: EMS 20:28 | DX: R07.89 Other chest pain (principal) | CPT/HCPCS: A0425; A0429 ==

== ENCOUNTER 2022-07-12 20:55 | Emergency (ER) | payer MEDICARE, MEDICAID ==
[2022-07-12] MEDS ORDERED: ACETAMINOPHEN 500 MG TABLET PO STA (20:58)
[2022-07-12 21:01] VITALS: BP 138/90
--- NOTE | 2022-07-12 21:01 | ED Physician Documentation ---
PD HPI ABD PAIN - Stated complaint Stated Complaint: ABD PX - History obtained from History obtained from: Patient, EMS - Additional information Additional information: 47-year-old gentleman with increasing frequency of emergency department visits. He has a history of paraplegia related to a spinal cord tumor and has had multiple visits related to left upper quadrant/left lower chest pain. He has had thorough work-ups including CTs of the abdomen and pelvis, earlier today had EKG and labs which were unremarkable as well as CT angiography of the chest which was negative for PE. He returns today without a change in his pain, with a complaint of "I just want a get rid of this pain." He had become pushy earlier in the day about pain medications and I had already set expectations that we would no longer be prescribing narcotic pain medication for him for this complaint especially given multiple negative work-ups and increasing frequency of emergency department use. I offered him Tylenol for his pain which he seemed unsatisfied with. Review of Systems Constitutional: reports: Reviewed and negative Nose: reports: Reviewed and negative Cardiac: reports: Reviewed and negative Respiratory: reports: Reviewed and negative PD PAST MEDICAL HISTORY - Past Medical History Cardiovascular: Hypertension, Murmur, Other Respiratory: Asthma Neuro: Other Endocrine/Autoimmune: None GI: Chronic constipation : Incontinence HEENT: None Psych: Depression Musculoskeletal: Chronic back pain, Other Derm: Other - Past Surgical History Past Surgical History: Yes General: Gastric surgery Ortho: Spine surgery HEENT: Tonsil/Adenoidectomy - Present Medications Home Medications: Ambulatory Orders Medication Instructions Recorded Confirmed Pregabalin [Lyrica] 300 mg PO 0600,1800 08/02/21 07/08/22 Duloxetine HCl [Cymbalta] 60 mg PO DAILY 05/26/22 07/08/22 Metoprolol Tartrate [Lopressor] 50 mg PO BIDWM 05/26/22 07/08/22 Acetaminophen [Acetaminophen Extra 500 mg PO QID PRN #40 tablet 06/11/22 07/08/22 Strength] Acetaminophen [Acetaminophen Extra 500 mg PO QID PRN #50 tablet 07/08/22 Strength] methocarbamoL [Methocarbamol] 500 mg PO TID PRN 07/08/22 07/08/22 oxyCODONE [Roxicodone] 5 mg PO Q6H PRN #20 tablet 07/08/22 Lidocaine Patch 5% [Lidoderm Patch] 1 patch TOP DAILY PRN #10 patch 07/10/22 - Allergies Allergies/Adverse Reactions: Allergies Allergy/AdvReac Type Severity Reaction Status Date / Time morphine Allergy Intermediate terrors Verified 07/12/22 20:58 gabapentin Allergy Unknown Verified 07/12/22 20:58 ibuprofen AdvReac Unknown Verified 07/12/22 20:58 - Social History Does the pt smoke?: Yes Smoking Status: Current every day smoker Does the pt drink ETOH?: Yes Does the pt have substance abuse?: No - Immunizations Immunizations are current?: Yes - POLST Patient has POLST: No PD ED PE NORMAL - Vitals Vital signs reviewed: Yes - General General: Alert and oriented X 3, No acute distress - Neck Neck: Supple, no meningeal sign, No bony TTP - Cardiac Cardiac: RRR, No murmur - Respiratory Respiratory: No respiratory distress, Clear bilaterally - Abdomen Abdomen: Other (Tender anterior left chest wall, no rash, no abdominal tenderness.) - Derm Derm: Normal color, Warm and dry - Neuro Neuro: Alert and oriented X 3, Normal speech Results - Vitals Vitals: Vital Signs - 24 hr 07/12/22 20:58 Temperature 36.6 C Heart Rate 100 Respiratory 18 Rate Blood Pressure 138/90 H O2 Saturation 95 Oxygen O2 Source Room air PD MEDICAL DECISION MAKING - ED course ED course: 47-year-old gentleman with left lower chest/left upper quadrant abdominal pain that has gone undergone extensive work-up without pertinent positive findings. He has an increasing Number of emergency department visits and at this juncture I do not think any further diagnostic testing is necessary. I did review EMSs E [facility] from [facility] and is nonischemic. Departure - Departure Disposition: 01 Home, Self Care Clinical Impression: Chest wall pain Condition: Good Record reviewed to determine appropriate education?: Yes Instructions: ED Chest Pain NonCardiac Comments: You have had extensive work-up for this pain without pertinent positive findings. You can take Tylenol as needed for the pain, as discussed earlier today we will no longer be providing prescription pain medications for this pain. Return as needed for new or worsening symptoms. Follow-up with your primary care physician for recheck on Saturday. Discharge Date/Time: 07/12/22 21:10
== END 2022-07-12 21:10 | disposition home or self-care (01) ==
LOC: ED 20:55
DX: R07.89 Other chest pain (principal); F17.200 Nicotine dependence, unspecified, uncomplicated; G82.20 Paraplegia, unspecified
CPT/HCPCS: 36415; 71275; 80053; 83690; 85025; 93005; 96374; 96375; 99282; 99283; 99284; A9270; J1170; Q9967

== ENCOUNTER 2022-07-12 21:12 | Outpatient (CLI) | payer MEDICARE, MEDICAID | END 2022-07-12 21:13 | disposition home or self-care (01) | LOC: EMS 21:12 | PROVIDERS: ATTEND Emergency Medicine | DX: R07.89 Other chest pain (principal); G82.20 Paraplegia, unspecified | CPT/HCPCS: A0425; A0428 ==

== ENCOUNTER 2022-07-13 05:26 | Outpatient (CLI) | payer MEDICARE, MEDICAID | END 2022-07-13 23:59 | disposition short-term general hospital (02) | LOC: EMS 05:26 | DX: M54.2 Cervicalgia (principal); M54.9 Dorsalgia, unspecified; W06.XXXA Fall from bed, initial encounter; Y92.003 Bedroom of unspecified non-institutional (private) residence as the place of occurrence of the external cause | CPT/HCPCS: A0425; A0429; A0888 ==

== ENCOUNTER 2022-07-13 15:55 | Outpatient (CLI) | payer MEDICARE, MEDICAID | END 2022-07-13 15:56 | disposition critical access hospital (66) | LOC: EMS 15:55 | DX: M54.50 Low back pain, unspecified (principal); W06.XXXA Fall from bed, initial encounter; G82.20 Paraplegia, unspecified | CPT/HCPCS: A0425; A0429 ==

== ENCOUNTER 2022-07-13 16:15 | Emergency (ER) | payer MEDICARE, MEDICAID ==
[2022-07-13 16:20] VITALS: BP 145/84
[2022-07-13] MEDS ORDERED: ACETAMINOPHEN 325 MG TABLET PO STA (16:29)
--- NOTE | 2022-07-13 16:29 | ED Physician Documentation ---
History of Present Illness - Stated complaint Stated Complaint: BACK PX - Chief complaint Chief Complaint: Back Pain - History obtained from History obtained from: Patient, EMS - History of Present Illness Pain level max: 5 Pain level now: 5 - Additonal information Additional information: Patient is a 47-year-old male who states that he has back pain. He has been seen and the ER here and at [facility] 6 times in the past 3 days. He has been seen for chest pain back pain. He states that the Tylenol helps but when it wears off the pain comes back so he called 911 again because he does not have any Tylenol at home. No new injuries. No falls. He is paraplegic at baseline. No head injury. No vomiting. No seizures. No fevers. Review of Systems Ten Systems: 10 systems reviewed and negative Constitutional: denies: Fever, Chills Nose: denies: Rhinorrhea / runny nose, Congestion Respiratory: denies: Cough GI: denies: Vomiting, Diarrhea Skin: denies: Rash Neurologic: denies: Headache PD PAST MEDICAL HISTORY - Past Medical History Cardiovascular: Hypertension, Murmur, Other Respiratory: Asthma Neuro: Other Endocrine/Autoimmune: None GI: Chronic constipation : Incontinence HEENT: None Psych: Depression Musculoskeletal: Chronic back pain, Other Derm: Other - Past Surgical History Past Surgical History: Yes General: Gastric surgery Ortho: Spine surgery HEENT: Tonsil/Adenoidectomy - Present Medications Home Medications: Ambulatory Orders Medication Instructions Recorded Confirmed Pregabalin [Lyrica] 300 mg PO 0600,1800 08/02/21 07/08/22 Duloxetine HCl [Cymbalta] 60 mg PO DAILY 05/26/22 07/08/22 Metoprolol Tartrate [Lopressor] 50 mg PO BIDWM 05/26/22 07/08/22 Acetaminophen [Acetaminophen Extra 500 mg PO QID PRN #40 tablet 06/11/22 07/08/22 Strength] Acetaminophen [Acetaminophen Extra 500 mg PO QID PRN #50 tablet 07/08/22 Strength] methocarbamoL [Methocarbamol] 500 mg PO TID PRN 07/08/22 07/08/22 oxyCODONE [Roxicodone] 5 mg PO Q6H PRN #20 tablet 07/08/22 Lidocaine Patch 5% [Lidoderm Patch] 1 patch TOP DAILY PRN #10 patch 07/10/22 - Allergies Allergies/Adverse Reactions: Allergies Allergy/AdvReac Type Severity Reaction Status Date / Time morphine Allergy Intermediate terrors Verified 07/12/22 20:58 gabapentin Allergy Unknown Verified 07/12/22 20:58 ibuprofen AdvReac Unknown Verified 07/12/22 20:58 - Social History Does the pt smoke?: Yes Smoking Status: Current every day smoker Does the pt drink ETOH?: Yes Does the pt have substance abuse?: No - Immunizations Immunizations are current?: Yes - POLST Patient has POLST: No PD ED PE NORMAL - Vitals Vital signs reviewed: Yes - General General: Alert and oriented X 3, No acute distress - HEENT HEENT: PERRL, Moist mucous membranes - Neck Neck: Supple, no meningeal sign, No bony TTP, C-Spine cleared by NEXUS criteria - Cardiac Cardiac: RRR - Respiratory Respiratory: No respiratory distress, Clear bilaterally - Abdomen Abdomen: Soft, Non tender, Non distended - Back Back: No spinal TTP - Derm Derm: Warm and dry - Neuro Neuro: Alert and oriented X 3 Results - Vitals Vitals: Vital Signs - 24 hr 07/13/22 16:17 Temperature 36.7 C Heart Rate 92 Respiratory 16 Rate Blood Pressure 145/84 H O2 Saturation 97 Oxygen O2 Source Room air PD MEDICAL DECISION MAKING - ED course Complexity details: reviewed old records, considered differential (No cauda equina, no spinal epidural abscess, no fracture, no aortic dissection or evidence of aneursym rupture), d/w patient ED course: Patient is already had imaging for this pain including CT scan. No acute findings. Counseled regarding appropriate use of the EMS system. EMS does have a community social insurance administrator that will reach out to the patient to see how they can help him obtain medication for home. Patient will also utilize heating packs, ice packs to help with his back pain. No evidence of cauda equina, epidural abscess. No new injuries since his CT scan. Patient counseled regarding signs and symptoms for which I believe and urgent re-evaluation would be necessary. Patient with good understanding of and agreement to plan and is comfortable going home at this time This document was made in part using voice recognition software. While efforts are made to proofread this document, sound alike and grammatical errors may occur. Departure - Departure Disposition: 01 Home, Self Care Clinical Impression: Back pain Qualifiers: Back pain location: thoracic back pain Chronicity: chronic Back pain laterality: right Qualified Code(s): M54.6 - Pain in thoracic spine Condition: Good Instructions: ED Neck Back Pain General Follow-Up: your,doctor next week [Other] Comments: As we discussed, the community out reach social insurance administrator from EMS will contact you regarding medication and to see what they can do to help you at home. Please follow-up with your doctor for further care. Discharge Date/Time: 07/13/22 16:35
== END 2022-07-13 16:35 | disposition home or self-care (01) ==
LOC: ED 16:15
DX: M54.6 Pain in thoracic spine (principal); G89.29 Other chronic pain; F17.200 Nicotine dependence, unspecified, uncomplicated
CPT/HCPCS: 99282; 99283; A9270

== ENCOUNTER 2022-07-13 16:35 | Outpatient (CLI) | payer MEDICARE, MEDICAID | END 2022-07-13 16:36 | disposition home or self-care (01) | LOC: EMS 16:35 | PROVIDERS: ATTEND Emergency Medicine | DX: M54.50 Low back pain, unspecified (principal); G82.20 Paraplegia, unspecified | CPT/HCPCS: A0425; A0429 ==

== ENCOUNTER 2022-07-14 17:50 | Emergency (ER) | payer MEDICARE, MEDICAID ==
--- NOTE | 2022-07-14 18:41 | XRAY Report ---
PROCEDURE: Chest 1 View X-Ray INDICATIONS: cough TECHNIQUE: One view of the chest was acquired. COMPARISON: 07/10/2022 FINDINGS: Surgical changes and devices: None. Lungs and pleura: No pleural effusions or pneumothorax. Lungs are clear. Low lung volumes. Mediastinum: Mediastinal contours appear normal. Heart size is normal. Bones and chest wall: No suspicious bony lesions. Overlying soft tissues appear unremarkable. IMPRESSION: No acute radiographic abnormality. Reviewed by: Idris Hernandez MD on 07/14/2022 6:40 PM [facility] Approved by: Idris Hernandez MD on 07/14/2022 6:40 PM [facility] Station ID: [id number]
--- NOTE | 2022-07-14 18:43 | ED Physician Documentation ---
History of Present Illness - Stated complaint Stated Complaint: SOA - Chief complaint Chief Complaint: Resp - History obtained from History obtained from: Patient, EMS - History of Present Illness Timing: Today Pain level max: 0 Pain level now: 0 - Additonal information Additional information: 47-year-old male positive for COVID-19 yesterday states that he felt short of breath earlier today. Is not currently feeling short of breath. Has a history of paraplegia. No fevers. No wheezing. No abdominal pain. No vomiting. Nothing made it better or worse. Review of Systems Constitutional: denies: Fever, Chills Ears: denies: Ear pain Nose: reports: Rhinorrhea / runny nose. denies: Congestion, Sinus pressure / pain Respiratory: reports: Dyspnea, Cough GI: denies: Abdominal Pain, Nausea, Vomiting, Diarrhea Skin: denies: Rash Musculoskeletal: denies: Neck pain, Back pain Neurologic: denies: Headache PD PAST MEDICAL HISTORY - Past Medical History Cardiovascular: Hypertension, Murmur, Other Respiratory: Asthma Neuro: Other Endocrine/Autoimmune: None GI: Chronic constipation : Incontinence HEENT: None Psych: Depression Musculoskeletal: Chronic back pain, Other Derm: Other - Past Surgical History Past Surgical History: Yes General: Gastric surgery Ortho: Spine surgery HEENT: Tonsil/Adenoidectomy - Present Medications Home Medications: Ambulatory Orders Medication Instructions Recorded Confirmed Pregabalin [Lyrica] 300 mg PO 0600,1800 08/02/21 07/08/22 Duloxetine HCl [Cymbalta] 60 mg PO DAILY 05/26/22 07/08/22 Metoprolol Tartrate [Lopressor] 50 mg PO BIDWM 05/26/22 07/08/22 Acetaminophen [Acetaminophen Extra 500 mg PO QID PRN #40 tablet 06/11/22 07/08/22 Strength] Acetaminophen [Acetaminophen Extra 500 mg PO QID PRN #50 tablet 07/08/22 Strength] methocarbamoL [Methocarbamol] 500 mg PO TID PRN 07/08/22 07/08/22 oxyCODONE [Roxicodone] 5 mg PO Q6H PRN #20 tablet 07/08/22 Lidocaine Patch 5% [Lidoderm Patch] 1 patch TOP DAILY PRN #10 patch 07/10/22 - Allergies Allergies/Adverse Reactions: Allergies Allergy/AdvReac Type Severity Reaction Status Date / Time morphine Allergy Intermediate terrors Verified 07/12/22 20:58 gabapentin Allergy Unknown Verified 07/12/22 20:58 ibuprofen AdvReac Unknown Verified 07/12/22 20:58 - Social History Does the pt smoke?: Yes Smoking Status: Current every day smoker Does the pt drink ETOH?: Yes Does the pt have substance abuse?: No - Immunizations Immunizations are current?: Yes - POLST Patient has POLST: No PD ED PE NORMAL - Vitals Vital signs reviewed: Yes - General General: Alert and oriented X 3, No acute distress, Well developed/nourished - HEENT HEENT: PERRL, Moist mucous membranes - Neck Neck: Supple, no meningeal sign - Cardiac Cardiac: RRR, Strong equal pulses - Respiratory Respiratory: No respiratory distress, Clear bilaterally - Abdomen Abdomen: Soft, Non tender, Non distended - Derm Derm: Warm and dry - Neuro Neuro: Alert and oriented X 3 - Psych Psych: Normal mood, Normal affect Results - Vitals Vitals: Vital Signs - 24 hr 07/14/22 07/14/22 17:58 19:20 Temperature 37.0 C Heart Rate 95 96 Respiratory 18 14 Rate Blood Pressure 124/86 H 133/94 H O2 Saturation 99 98 Oxygen O2 Source Room air PD MEDICAL DECISION MAKING - ED course Complexity details: reviewed old records, considered differential, d/w patient ED course: Patient tested positive for COVID yesterday. Had a CT scan reportedly of the chest yesterday. Lungs are clear to auscultation bilaterally today. No hypoxia. No tachypnea, no increased work of breathing. No indication for albuterol. Patient is very well-appearing, nontoxic. Afebrile. We will plan on continuing supportive care and have him follow-up with his doctor for further care. Patient counseled regarding signs and symptoms for which I believe and urgent re-evaluation would be necessary. Patient with good understanding of and agreement to plan and is comfortable going home at this time This document was made in part using voice recognition software. While efforts are made to proofread this document, sound alike and grammatical errors may occur. Departure - Departure Disposition: 01 Home, Self Care Clinical Impression: COVID-19 Condition: Good Instructions: ED Viral Syndrome Follow-Up: Danika García PA-C [Primary Care Provider] - Within 1 week Comments: Please follow up with your doctor for further care. Your xray and vitals are normal today. Discharge Date/Time: 07/14/22 20:01
[2022-07-14] MEDS ORDERED: ACETAMINOPHEN 325 MG TABLET PO STA (19:03)
[2022-07-14 19:21] VITALS: BP 133/94
== END 2022-07-14 20:01 | disposition home or self-care (01) ==
LOC: EDBD → EDUNIT# → ED 17:50
DX: U07.1 COVID-19 (principal); F17.200 Nicotine dependence, unspecified, uncomplicated
CPT/HCPCS: 71045; 99282; 99283; A9270

== ENCOUNTER 2022-07-16 02:51 | Emergency (ER) | payer MEDICARE, MEDICAID ==
[2022-07-16] MEDS ORDERED: LIDOCAINE PATCH 5% TOP STA (03:46)
[2022-07-16] MEDS ORDERED: ACETAMINOPHEN 325 MG TABLET PO STA (03:46)
[2022-07-16] MEDS ORDERED: KETOROLAC 15 MG/ML VIAL IVP STA (03:46)
[2022-07-16] MEDS ORDERED: KETOROLAC 15 MG/ML VIAL IM STA (03:53)
[2022-07-16 05:11] VITALS: BP 125/89
--- NOTE | 2022-07-16 09:55 | ED Physician Documentation ---
PD HPI BACK PAIN - Stated complaint Stated Complaint: FALL - Chief complaint Chief Complaint: Back Pain - History obtained from History obtained from: Patient, EMS - History of Present Illness Timing - details: Abrupt onset Pain level now: 8 Location: Lower, Left Quality: Pain, Spasm Associated symptoms: No: Fever Recently seen: Emergency Dept - Additional information Additional information: AILEEN. Patient says he fell out of bed this morning (approximately 30 minutes KILN TESTER), exacerbating chronic left low back pain. He denies head injury, denies LOC. He is not on any blood-thinning medications. Patient is wheelchair-bound (hemiplegic) due to complications related to schwannoma. This is his tenth [facility] ED visit this month; he also has had two ED visits this month to [facility] as well as an inpatient stay at [facility]. This is his 27th ED visit over past 12 months involving 5 different EDs Review of Systems Constitutional: denies: Fever GI: denies: Abdominal Pain Musculoskeletal: reports: Back pain Neurologic: denies: Headache, Head injury, LOC PD PAST MEDICAL HISTORY - Past Medical History Past Medical History: Yes Cardiovascular: Hypertension, Murmur, Other Respiratory: Asthma Neuro: Other Endocrine/Autoimmune: None GI: Chronic constipation : Incontinence HEENT: None Psych: Depression Musculoskeletal: Chronic back pain, Other Derm: Other - Past Surgical History Past Surgical History: Yes General: Gastric surgery Ortho: Spine surgery HEENT: Tonsil/Adenoidectomy - Present Medications Home Medications: Ambulatory Orders Medication Instructions Recorded Confirmed Pregabalin [Lyrica] 300 mg PO 0600,1800 08/02/21 07/16/22 Duloxetine HCl [Cymbalta] 60 mg PO DAILY 05/26/22 07/16/22 Metoprolol Tartrate [Lopressor] 50 mg PO BIDWM 05/26/22 07/16/22 Acetaminophen [Acetaminophen Extra 500 mg PO QID PRN #50 tablet 07/08/22 07/16/22 Strength] methocarbamoL [Methocarbamol] 500 mg PO TID PRN 07/08/22 07/16/22 Lidocaine Patch 5% [Lidoderm Patch] 1 patch TOP DAILY PRN #10 patch 07/10/22 07/16/22 Lidocaine Patch 5% [Lidoderm Patch] 1 patch TOP DAILY PRN #10 patch 07/16/22 - Allergies Allergies/Adverse Reactions: Allergies Allergy/AdvReac Type Severity Reaction Status Date / Time morphine Allergy Intermediate terrors Verified 07/16/22 18:04 gabapentin Allergy Unknown Verified 07/16/22 18:04 ibuprofen AdvReac Unknown Verified 07/16/22 18:04 - Social History Does the pt smoke?: Yes Smoking Status: Current every day smoker Does the pt drink ETOH?: Yes Does the pt have substance abuse?: No - Immunizations Immunizations are current?: Yes - POLST Patient has POLST: No PD ED PE NORMAL - Vitals Vital signs reviewed: Yes - General General: Alert and oriented X 3, No acute distress - Cardiac Cardiac: RRR, No murmur - Respiratory Respiratory: No respiratory distress, Clear bilaterally - Back Back: No spinal TTP, Other (no midline tenderness, no bony tenderness of left mid/low back (no rib tenderness, no tenderness of posterior pelvic crest). he is TTP left parathoracic area; no echymosis, no erythema, no abrasion) Results - Vitals Vitals: Vital Signs - 24 hr 07/16/22 07/16/22 07/16/22 02:55 02:57 04:35 Temperature 36.5 C 37.2 C Heart Rate 97 96 93 Respiratory 20 19 13 Rate Blood Pressure 123/85 H 132/88 H 124/87 H O2 Saturation 99 99 96 07/16/22 05:07 Temperature 37.0 C Heart Rate 89 Respiratory 19 Rate Blood Pressure 125/89 H O2 Saturation 98 Oxygen O2 Source Room air PD MEDICAL DECISION MAKING - ED course Complexity details: reviewed old records, considered differential, d/w patient ED course: c/o low back pain, predominantly left sided, since falling out of bed bipin. TTP on exam of left lower back over musculature. He has exceptionally frequent ED visits, often for pain c/o. Patient has been evaluated for chronic back pain c/o several times this month alone in [facility] ED (06/22/22 had same presentation: fell out of bed, exacerbating his lower back pain). [facility] he is given lidoderm patch and rx for lidoderm patches is transmitted to his pharmacy of choice. He is also given IM toradol and PO tylenol. I advised him to follow up with his primary care provider regarding his recurrent back pain/chronic pain c/o. Departure - Departure Disposition: 01 Home, Self Care Clinical Impression: Low back sprain Qualifiers: Encounter type: initial encounter Qualified Code(s): S33.5XXA - Sprain of ligaments of lumbar spine, initial encounter Contusion, back Qualifiers: Encounter type: initial encounter Laterality: left Qualified Code(s): S20.222A - Contusion of left back wall of thorax, initial encounter Condition: Good Instructions: ED Low Back Pain Injury Prescriptions: Lidocaine Patch 5% [Lidoderm Patch] 1 patch TOP DAILY PRN #10 patch PRN Reason: pain Comments: A prescription for more of the lidoderm patches has been electronically submitted to [facility] pharmacy in [place]. Apply one patch to the affected area (left lower back) each morning, remove at the end of the day (can leave in place up to 12 hours, can place next patch no sooner than 12 hours after removing previous patch) Discharge Date/Time: 07/16/22 05:12
== END 2022-07-16 05:12 | disposition home or self-care (01) ==
LOC: EDUNIT# → ED 02:51
DX: S33.5XXA Sprain of ligaments of lumbar spine, initial encounter (principal); W06.XXXA Fall from bed, initial encounter; G81.90 Hemiplegia, unspecified affecting unspecified side; Z99.3 Dependence on wheelchair; F17.200 Nicotine dependence, unspecified, uncomplicated
CPT/HCPCS: 96372; 99283; 99284

== ENCOUNTER 2022-07-16 17:34 | Outpatient (CLI) | payer MEDICARE, MEDICAID | END 2022-07-16 23:59 | disposition home or self-care (01) | LOC: EMS 17:34 | DX: M54.50 Low back pain, unspecified (principal); R07.81 Pleurodynia; W19.XXXA Unspecified fall, initial encounter; G82.20 Paraplegia, unspecified | CPT/HCPCS: A0425; A0429 ==

== ENCOUNTER 2022-07-16 17:58 | Emergency (ER) | payer MEDICARE, MEDICAID ==
[2022-07-16 18:07] VITALS: BP 125/90
[2022-07-16] MEDS ORDERED: HYDROcod/ACETAM 5/325 MG TABLET PO STA (18:10)
--- NOTE | 2022-07-16 18:13 | ED Physician Documentation ---
History of Present Illness - Stated complaint Stated Complaint: BACK PX - Chief complaint Chief Complaint: Back Pain - History obtained from History obtained from: Patient, EMS - Additonal information Additional information: Pt returns to the Ed after being seen here yesterday for his chronic pain, and not getting his prescriptions filled. He is here for his chronic low back pain again. No fevers or chills. No new injuries. Review of Systems Ten Systems: 10 systems reviewed and negative Constitutional: reports: Reviewed and negative Eyes: reports: Reviewed and negative Ears: reports: Reviewed and negative Nose: reports: Reviewed and negative Throat: reports: Reviewed and negative Cardiac: reports: Reviewed and negative Respiratory: reports: Reviewed and negative GI: reports: Reviewed and negative : reports: Reviewed and negative Skin: reports: Reviewed and negative Musculoskeletal: reports: Back pain Neurologic: reports: Reviewed and negative Psychiatric: reports: Reviewed and negative Endocrine: reports: Reviewed and negative Immunocompromised: reports: Reviewed and negative PD PAST MEDICAL HISTORY - Past Medical History Past Medical History: Yes Cardiovascular: Hypertension, Murmur, Other Respiratory: Asthma Neuro: Other Endocrine/Autoimmune: None GI: Chronic constipation : Incontinence HEENT: None Psych: Depression Musculoskeletal: Chronic back pain, Other Derm: Other - Past Surgical History Past Surgical History: Yes General: Gastric surgery Ortho: Spine surgery HEENT: Tonsil/Adenoidectomy - Present Medications Home Medications: Ambulatory Orders Medication Instructions Recorded Confirmed Pregabalin [Lyrica] 300 mg PO 0600,1800 08/02/21 07/20/22 Duloxetine HCl [Cymbalta] 60 mg PO DAILY 05/26/22 07/20/22 Metoprolol Tartrate [Lopressor] 50 mg PO BIDWM 05/26/22 07/20/22 Acetaminophen [Acetaminophen Extra 500 mg PO QID PRN #50 tablet 07/08/22 07/20/22 Strength] methocarbamoL [Methocarbamol] 500 mg PO TID PRN 07/08/22 07/20/22 Lidocaine Patch 5% [Lidoderm Patch] 1 patch TOP DAILY PRN #10 patch 07/10/22 07/20/22 Lidocaine Patch 5% [Lidoderm Patch] 1 patch TOP DAILY PRN #10 patch 07/16/22 07/20/22 levoFLOXacin [Levaquin] 250 mg PO ONCE #10 tablet 07/18/22 07/20/22 Lidocaine Patch 5% [Lidoderm Patch] 1 patch TOP DAILY PRN #10 patch 07/20/22 - Allergies Allergies/Adverse Reactions: Allergies Allergy/AdvReac Type Severity Reaction Status Date / Time morphine Allergy Intermediate terrors Verified 07/20/22 04:41 gabapentin Allergy Unknown Verified 07/20/22 04:41 ibuprofen AdvReac Unknown Verified 07/20/22 04:41 - Social History Does the pt smoke?: Yes Smoking Status: Current every day smoker Does the pt drink ETOH?: Yes Does the pt have substance abuse?: No - Immunizations Immunizations are current?: Yes - POLST Patient has POLST: No PD ED PE NORMAL - Vitals Vital signs reviewed: Yes - General General: Alert and oriented X 3, No acute distress, Well developed/nourished - HEENT HEENT: Atraumatic, PERRL, EOMI, Moist mucous membranes - Neck Neck: Supple, no meningeal sign - Cardiac Cardiac: RRR, No murmur - Respiratory Respiratory: No respiratory distress, Clear bilaterally - Abdomen Abdomen: Soft, Non tender, Non distended - Back Back: No CVA TTP, No spinal TTP - Derm Derm: Warm and dry - Extremities Extremities: No deformity - Neuro Neuro: Alert and oriented X 3 - Psych Psych: Normal mood, Normal affect Results - Vitals Vitals: Oxygen O2 Source Room air PD MEDICAL DECISION MAKING - ED course Complexity details: considered differential, d/w patient ED course: Pt was given a dose of Vicodin and advised to get his prescriptions filled. No emergent condition identified. Departure - Departure Disposition: 01 Home, Self Care Clinical Impression: Acute exacerbation of chronic low back pain Condition: Stable Instructions: ED Spasm Back No Trauma Comments: Please go picker your prescription tonight or tomorrow morning. Discharge Date/Time: 07/16/22 18:18
== END 2022-07-16 18:18 | disposition home or self-care (01) ==
LOC: EDUNIT# → ED 17:58
DX: S33.5XXA Sprain of ligaments of lumbar spine, initial encounter (principal); W06.XXXA Fall from bed, initial encounter; G81.90 Hemiplegia, unspecified affecting unspecified side; Z99.3 Dependence on wheelchair; G89.29 Other chronic pain; F17.200 Nicotine dependence, unspecified, uncomplicated
CPT/HCPCS: 96372; 99283; 99284; A9270

== ENCOUNTER 2022-07-16 18:16 | Outpatient (CLI) | payer MEDICARE, MEDICAID | END 2022-07-16 23:59 | disposition home or self-care (01) | LOC: EMS 18:16 | PROVIDERS: ATTEND Emergency Medicine | DX: M54.50 Low back pain, unspecified (principal); G82.20 Paraplegia, unspecified | CPT/HCPCS: A0425; A0428 ==

== ENCOUNTER → 2022-07-16 | Outpatient (CLI) | payer MEDICARE, MEDICAID | END | disposition home or self-care (01) | LOC: EMS 05:12 | PROVIDERS: ATTEND Emergency Medicine | DX: M54.50 Low back pain, unspecified (principal); W19.XXXA Unspecified fall, initial encounter; G82.20 Paraplegia, unspecified | CPT/HCPCS: A0425; A0428 ==

== ENCOUNTER → 2022-07-16 | Outpatient (CLI) | payer MEDICARE, MEDICAID | END | disposition critical access hospital (66) | LOC: EMS 02:28 | DX: M54.50 Low back pain, unspecified (principal); W06.XXXA Fall from bed, initial encounter; Y92.008 Other place in unspecified non-institutional (private) residence as the place of occurrence of the external cause; R39.89 Other symptoms and signs involving the genitourinary system; U07.1 COVID-19 | CPT/HCPCS: A0425; A0429 ==

== ENCOUNTER 2022-07-18 18:49 | Emergency (ER) | payer MEDICARE, MEDICAID ==
--- NOTE | 2022-07-18 19:12 | ED Physician Documentation ---
History of Present Illness - Stated complaint Stated Complaint: UTI/C+ - Chief complaint Chief Complaint: General - History obtained from History obtained from: Patient - Additonal information Additional information: This a 47-year-old male who presents the urgency of his home health nurse after she noticed that his Bowling catheter urine was dark today. Patient has a chronic indwelling catheter due to paraplegia from a schwannoma and has had multiple urinary tract infections over the course of the last several months. He also currently has a COVID infection. He is minimally symptomatic with the COVID infection, just occasional cough, no fever, no chest pain or difficulty breathing, no abdominal pain, no nausea or vomiting, no flank pain. He has not had any concerns about his urine but states that it has been darker. He has been tolerating p.o. well and had no other symptoms as noted above. He was on Levaquin at the end of May after an admission for urinary tract infection and has been seen here several times since For other issues and work-ups have been stable. Patient notably does have bilateral ureteral stents from prior issues and he has not been able to get back into urology to have them removed for unclear reasons so now he has COVID so he states he has not been able to go and has not Scheduled an appointment for post-Isolation.. Review of Systems Ten Systems: 10 systems reviewed and negative (Except as noted in HPI) PD PAST MEDICAL HISTORY - Past Medical History Past Medical History: Yes Cardiovascular: Hypertension, Murmur, Other Respiratory: Asthma Neuro: Other Endocrine/Autoimmune: None GI: Chronic constipation : Incontinence HEENT: None Psych: Depression Musculoskeletal: Chronic back pain, Other Derm: Other - Past Surgical History Past Surgical History: Yes General: Gastric surgery Ortho: Spine surgery HEENT: Tonsil/Adenoidectomy - Present Medications Home Medications: Ambulatory Orders Medication Instructions Recorded Confirmed Pregabalin [Lyrica] 300 mg PO 0600,1800 08/02/21 07/16/22 Duloxetine HCl [Cymbalta] 60 mg PO DAILY 05/26/22 07/16/22 Metoprolol Tartrate [Lopressor] 50 mg PO BIDWM 05/26/22 07/16/22 Acetaminophen [Acetaminophen Extra 500 mg PO QID PRN #50 tablet 07/08/22 07/16/22 Strength] methocarbamoL [Methocarbamol] 500 mg PO TID PRN 07/08/22 07/16/22 Lidocaine Patch 5% [Lidoderm Patch] 1 patch TOP DAILY PRN #10 patch 07/10/22 07/16/22 Lidocaine Patch 5% [Lidoderm Patch] 1 patch TOP DAILY PRN #10 patch 07/16/22 levoFLOXacin [Levaquin] 250 mg PO ONCE #10 tablet 07/18/22 - Allergies Allergies/Adverse Reactions: Allergies Allergy/AdvReac Type Severity Reaction Status Date / Time morphine Allergy Intermediate terrors Verified 07/18/22 18:57 gabapentin Allergy Unknown Verified 07/18/22 18:57 ibuprofen AdvReac Unknown Verified 07/18/22 18:57 - Social History Does the pt smoke?: Yes Smoking Status: Current every day smoker Does the pt drink ETOH?: Yes Does the pt have substance abuse?: No - Immunizations Immunizations are current?: Yes - POLST Patient has POLST: No PD ED PE NORMAL - Vitals Vital signs reviewed: Yes - General General: Alert and oriented X 3, No acute distress, Well developed/nourished - HEENT HEENT: Atraumatic, Moist mucous membranes, Pharynx benign - Cardiac Cardiac: RRR, No murmur - Respiratory Respiratory: No respiratory distress, Clear bilaterally - Abdomen Abdomen: Normal bowel sounds, Soft, Non tender, Non distended - Male Male : Other (There is a urinary catheter present with dark urine.) - Back Back: No CVA TTP - Derm Derm: Normal color, Warm and dry Results - Vitals Vitals: Vital Signs - 24 hr 07/18/22 07/18/22 07/18/22 18:53 19:15 21:07 Temperature 36.6 C 36.6 C Heart Rate 104 H 89 Respiratory 20 16 16 Rate Blood Pressure 126/94 H 122/81 H O2 Saturation 95 96 Oxygen O2 Source Room air - Labs Labs: Laboratory Tests 07/18/22 19:10 Urine Color YELLOW Urine Clarity CLOUDY Urine pH 6.5 Ur Specific [place] 1.020 Urine Protein 100 H Urine Glucose (UA) NEGATIVE Urine Ketones 40 H Urine Occult Blood LARGE H Urine Nitrite POSITIVE H Urine Bilirubin NEGATIVE Urine Urobilinogen 1 (NORMAL) Ur Leukocyte Esterase LARGE H Urine RBC TNTC H Urine WBC >25 H Ur Squamous Epith Cells NONE SEEN Urine Bacteria Many H Ur Microscopic Review INDICATED PD MEDICAL DECISION MAKING - ED course Complexity details: reviewed old records, reviewed results, considered differential, d/w patient ED course: This is a 47-year-old male who has a complex past medical history who presents at the insistence of his home health nurse due to dark urine. Patient really has no other symptoms at this time, no fever, no GI Symptoms, no lethargy, no c ough or URI symptoms. He does have COVID at this time but is minimally symptomatic with that. He has however had multiple UTIs in the past with sepsis and has [address] that may be a nidus of infection. His urinalysis today is suggestive of infection whether this is colonization or recurrent infection is difficult to tell but I will start him on treatment with Levaquin as per his prior urinalysis and await the urine culture. At this time, patient does not have indication for hospitalization but is at high risk due to his multiple comorbidities and current stents in place. He was advised to monitor closely and if you were to worsen, develop a fever or develop flank pain, nausea vomiting, have lethargy or other new concerns that he should return to the ER. He was also strongly urged to make an appointment with his urologist as soon as possible after his COVID isolation period is up which is this Saturday, as he likely needs removal of the stents which may be the nidus of his recurrent infections. Departure - Departure Disposition: 01 Home, Self Care Clinical Impression: UTI (urinary tract infection) Qualifiers: Urinary tract infection type: catheter-associated UTI Indwelling urinary catheter type: indwelling urethral catheter Encounter type: initial encounter Qualified Code(s): T83.511A - Infection and inflammatory reaction due to indwelling urethral catheter, initial encounter Condition: Good Instructions: ED UTI Cystitis Male Prescriptions: levoFLOXacin [Levaquin] 250 mg PO ONCE #10 tablet Comments: You presented with concerns for dark urine. Your urinalysis does show signs of infection however given that you have had indwelling catheter for quite some time, sometimes people are colonized. At this time we do not have Other signs of infection. We will treat you with Levaquin per your prior cultures however if you get worse including a fever, lethargy, vomiting, flank pain or other new concerns, return to the ER. You do need to get your stents out as soon as possible after you have recovered from your COVID. Please call to make an appoint with your urologist as soon as possible. Discharge Date/Time: 07/18/22 21:07
[2022-07-18 19:17] LABS: GLUCOSE, URINE (UA) NEGATIVE (NEGATIVE); KETONES,URINE (UA) 40 mg/dL (NEGATIVE); LEUKOCYTE ESTERASE, URINE LARGE (NEGATIVE); NITRITE,URINE POSITIVE (NEGATIVE); OCCULT BLOOD,URINE LARGE (NEGATIVE); PH,URINE 6.5 PH (5.0-7.5); PROTEIN,URINE 100 mg/dL (NEGATIVE); UROBILINOGEN,URINE 1 (NORMAL) E.U./dL (NORMAL)
[2022-07-18 19:19] LABS: CLARITY,URINE CLOUDY (CLEAR)
[2022-07-18 19:24] LABS: BACTERIA,URINE Many /HPF (None Seen); BILIRUBIN,URINE NEGATIVE (NEGATIVE); ICTOTEST,URINE NEGATIVE; RBC,URINE TNTC /HPF (0-5); SQUAMOUS EPITHELIAL CELL,UR NONE SEEN (<= Few); WBC,URINE >25 /HPF (0-3)
[2022-07-18] MEDS ORDERED: CIPROFLOXACIN 250 MG TABLET PO STA (20:00)
[2022-07-18] MEDS ORDERED: levoFLOXacin 250 MG TABLET PO STA (20:09)
[2022-07-18 21:09] VITALS: BP 122/81
== END 2022-07-18 21:07 | disposition home or self-care (01) ==
LOC: EDUNIT# → ED 18:49
DX: T83.511A Infection and inflammatory reaction due to indwelling urethral catheter, initial encounter (principal); U07.1 COVID-19; G82.20 Paraplegia, unspecified; Z96.0 Presence of urogenital implants; F17.200 Nicotine dependence, unspecified, uncomplicated
CPT/HCPCS: 81001; 99282; 99283; A9270; 81003

== ENCOUNTER → 2022-07-18 | Outpatient (CLI) | payer MEDICARE, MEDICAID | END | disposition critical access hospital (66) | LOC: EMS 18:26 | DX: R39.89 Other symptoms and signs involving the genitourinary system (principal); U07.1 COVID-19; G82.20 Paraplegia, unspecified | CPT/HCPCS: A0425; A0429 ==

== ENCOUNTER → 2022-07-18 | Outpatient (CLI) | payer MEDICARE, MEDICAID | END | disposition home or self-care (01) | LOC: EMS 21:08 | PROVIDERS: ATTEND Emergency Medicine | DX: N39.0 Urinary tract infection, site not specified (principal); U07.1 COVID-19; G82.20 Paraplegia, unspecified | CPT/HCPCS: A0425; A0428 ==

== ENCOUNTER 2022-07-20 04:36 | Emergency (ER) | payer MEDICARE, MEDICAID ==
--- NOTE | 2022-07-20 04:51 | ED Physician Documentation ---
PD HPI BACK PAIN - Stated complaint Stated Complaint: FALL - Chief complaint Chief Complaint: Back Pain - History obtained from History obtained from: Patient, EMS - History of Present Illness Timing - onset: How many minutes ago (approximately 30 minutes COMMUNITY LEADER) Timing - details: Abrupt onset Pain level now: 7 Location: Upper, Mid, Right, Left Quality: Pain Associated symptoms: Weakness (hemiplegic (no new weakness)). No: Fever Recently seen: Emergency Dept - Additional information Additional information: BIBJeyson. Patient says he was in bed asleep, woke up approximately 30 minutes COMMUNITY LEADER on floor next to bed, says "I have no idea how I ended up on the floor". EMS notes that not only is his bed low to ground, but that there are several shirts and other clothing adjacent to bed on which patient was found (thus fall from significant height and/or landing on firm/hard floor do not appear to be factors at this time). Patient c/o midline pain across his mid/upper thoracic back. I evaluated this patient 07/16/22 for same c/o (fell out of bed, back pain although at that time it was lower left back pain). He returned to the ED same day c/o ongoing pain, and returned again 2 days later (07/18/22) due to home he alth aide's concern regarding dark urine in his glover collection bag (he was rx levaquin on that visit). Patient tells me his back pain tonight is different in location that his usual, chronic back pain. Patient has 12 ED visits to [facility] ED last month alone and over 30 ED visits over past 12 months to five different EDs Review of Systems Constitutional: denies: Fever, Chills, Sweats Cardiac: reports: Reviewed and negative Respiratory: reports: Reviewed and negative GI: reports: Reviewed and negative Musculoskeletal: reports: Back pain. denies: Neck pain, Extremity pain PD PAST MEDICAL HISTORY - Past Medical History Past Medical History: Yes Cardiovascular: Hypertension, Murmur, Other Respiratory: Asthma Neuro: Other Endocrine/Autoimmune: None GI: Chronic constipation : Incontinence HEENT: None Psych: Depression Musculoskeletal: Chronic back pain, Other Derm: Other - Past Surgical History Past Surgical History: Yes General: Gastric surgery Ortho: Spine surgery HEENT: Tonsil/Adenoidectomy - Present Medications Home Medications: Ambulatory Orders Medication Instructions Recorded Confirmed Pregabalin [Lyrica] 300 mg PO 0600,1800 08/02/21 07/20/22 Duloxetine HCl [Cymbalta] 60 mg PO DAILY 05/26/22 07/20/22 Metoprolol Tartrate [Lopressor] 50 mg PO BIDWM 05/26/22 07/20/22 Acetaminophen [Acetaminophen Extra 500 mg PO QID PRN #50 tablet 07/08/22 07/20/22 Strength] methocarbamoL [Methocarbamol] 500 mg PO TID PRN 07/08/22 07/20/22 Lidocaine Patch 5% [Lidoderm Patch] 1 patch TOP DAILY PRN #10 patch 07/10/22 07/20/22 Lidocaine Patch 5% [Lidoderm Patch] 1 patch TOP DAILY PRN #10 patch 07/16/22 07/20/22 levoFLOXacin [Levaquin] 250 mg PO ONCE #10 tablet 07/18/22 07/20/22 Lidocaine Patch 5% [Lidoderm Patch] 1 patch TOP DAILY PRN #10 patch 07/20/22 - Allergies Allergies/Adverse Reactions: Allergies Allergy/AdvReac Type Severity Reaction Status Date / Time morphine Allergy Intermediate terrors Verified 07/20/22 04:41 gabapentin Allergy Unknown Verified 07/20/22 04:41 ibuprofen AdvReac Unknown Verified 07/20/22 04:41 - Social History Does the pt smoke?: No Smoking Status: Former smoker Does the pt drink ETOH?: Yes Does the pt have substance abuse?: No - Immunizations Immunizations are current?: Yes - POLST Patient has POLST: No PD ED PE NORMAL - Vitals Vital signs reviewed: Yes - General General: Alert and oriented X 3, No acute distress, Well developed/nourished - HEENT HEENT: Atraumatic, PERRL, EOMI - Neck Neck: No bony TTP - Cardiac Cardiac: RRR, No murmur - Respiratory Respiratory: No respiratory distress, Clear bilaterally - Abdomen Abdomen: Soft, Non tender - Back Back: Other (mild TTP across mid/upper thoracic back (midline and bilateral parathoracic) without crepitus, bruising, or obvious deformity. There is an old, healed midline scar mid/lower thoracic back) Results - Vitals Vitals: Oxygen O2 Source Room air - Rads (name of study) thoracic spine xrays Radiology: Prelim report reviewed, See rad report PD MEDICAL DECISION MAKING - ED course Complexity details: reviewed old records, reviewed results, re-evaluated patient, considered differential, d/w patient ED course: given 5mg PO oxycodone. Plain film xrays of thoracic spine do not suggest acute abnormality/injury. Results d/w patient. He reports improvement after the 5mg oxycodone. He says that the lidoderm patches I prescribed 07/16 were not at the pharmacy when he went to pick them up. Checking in [place], there is an indication that the prescription was transmitted electronically to [facility] pharmacy where he requested it be sent. I sent another rx for lidoderm patches on discharge today to [facility] pharmacy, presuming there was a problem in sending and/or processing of the previous rx Departure - Departure Disposition: 01 Home, Self Care Clinical Impression: Thoracic back sprain Qualifiers: Encounter type: initial encounter Qualified Code(s): S23.9XXA - Sprain of unspecified parts of thorax, initial encounter Condition: Good Instructions: ED Contusion Back, ED Neck Back Pain General Prescriptions: Lidocaine Patch 5% [Lidoderm Patch] 1 patch TOP DAILY PRN #10 patch PRN Reason: pain Comments: The xrays do not show evidence of acute bony injury (no fractures/breaks). In general, xrays would not show soft tissue injuries such as sprains, strains, contusions, nor would they show problems with the discs in the back. A prescription for lidoderm patches has been electronically submitted to [facility] pharmacy in [place]. Discharge Date/Time: 07/20/22 08:35
[2022-07-20] MEDS ORDERED: oxyCODONE 5 MG TABLET PO STA (05:16)
[2022-07-20 07:04] VITALS: BP 134/97
--- NOTE | 2022-07-20 08:21 | XRAY Report ---
PROCEDURE: Thoracic Spine 2 View INDICATIONS: fall, thoracic back pain TECHNIQUE: 3 views of the thoracic spine were acquired. COMPARISON: None. FINDINGS: Bones: No fractures or dislocations. No suspicious bony lesions. 12 pairs of ribs are noted, and a ppear intact where visualized. Soft tissues: No paravertebral stripe thickening. IMPRESSION: No acute compression fracture or spondylolisthesis in thoracic spine. Reviewed by: Shashank Machado MD on 07/20/2022 8:20 AM [facility] [place] Approved by: Shashank Machado MD on 07/20/2022 8:20 AM PST Station ID: [id number]
== END 2022-07-20 08:35 | disposition home or self-care (01) ==
LOC: EDUNIT# → ED 04:36
DX: S23.9XXA Sprain of unspecified parts of thorax, initial encounter (principal); W06.XXXA Fall from bed, initial encounter; Y93.89 Activity, other specified; Y92.003 Bedroom of unspecified non-institutional (private) residence as the place of occurrence of the external cause; Z87.891 Personal history of nicotine dependence
CPT/HCPCS: 72070; 99283; 99284; A9270

== ENCOUNTER → 2022-07-20 | Outpatient (CLI) | payer MEDICARE, MEDICAID | END | disposition home or self-care (01) | LOC: EMS 09:04 | PROVIDERS: ATTEND Emergency Medicine | DX: M54.6 Pain in thoracic spine (principal); W19.XXXA Unspecified fall, initial encounter; G82.20 Paraplegia, unspecified | CPT/HCPCS: A0425; A0428 ==

== ENCOUNTER → 2022-07-20 | Outpatient (CLI) | payer MEDICARE, MEDICAID | END | disposition critical access hospital (66) | LOC: EMS 04:14 | DX: M54.6 Pain in thoracic spine (principal); W06.XXXA Fall from bed, initial encounter; Y92.003 Bedroom of unspecified non-institutional (private) residence as the place of occurrence of the external cause; G82.20 Paraplegia, unspecified | CPT/HCPCS: A0425; A0429 ==

== ENCOUNTER → 2022-07-21 | Outpatient (CLI) | payer MEDICARE, MEDICAID | END | disposition EMS.NT | LOC: EMS 18:11 | PROVIDERS: ATTEND Emergency Medicine | DX: M54.50 Low back pain, unspecified (principal) ==

== ENCOUNTER 2022-07-22 08:51 | Emergency (ER) | payer MEDICARE, MEDICAID ==
[2022-07-22] MEDS ORDERED: KETOROLAC 15 MG/ML VIAL IVP STA (08:57)
--- NOTE | 2022-07-22 08:57 | ED Physician Documentation ---
PD HPI ABD PAIN - Stated complaint Stated Complaint: ABD PX - History obtained from History obtained from: Patient, EMS - Additional information Additional information: 47-year-old gentleman with complicated medical history presents by ambulance for evaluation of lower abdominal pain starting around 6 PM last night. He has a history of spinal cord tumor with quadriplegia, neurogenic bladder related to same with ongoing Bowling dependence. History of kidney stones with 6-month-old stents in place and he is tells me he has an appointment in 2 weeks to see his urologist at [facility]. He states this does feel like kidney stone pain but de nies any increase in his low back pain. No fevers. He is currently on antibiotics for bacteriuria. He has been a very frequent emergency department visitor of [facility], noting 31 emergency department visits over the last 12 months, and almost daily over the last couple weeks. Review of Systems Ten Systems: 10 systems reviewed and negative Constitutional: reports: Reviewed and negative Cardiac: reports: Reviewed and negative Respiratory: reports: Reviewed and negative PD PAST MEDICAL HISTORY - Past Medical History Cardiovascular: Hypertension, Murmur, Other Respiratory: Asthma Neuro: Other Endocrine/Autoimmune: None GI: Chronic constipation : Incontinence HEENT: None Psych: Depression Musculoskeletal: Chronic back pain, Other Derm: Other - Past Surgical History Past Surgical History: Yes General: Gastric surgery Ortho: Spine surgery HEENT: Tonsil/Adenoidectomy - Present Medications Home Medications: Ambulatory Orders Medication Instructions Recorded Confirmed Pregabalin [Lyrica] 300 mg PO 0600,1800 08/02/21 07/20/22 Duloxetine HCl [Cymbalta] 60 mg PO DAILY 05/26/22 07/20/22 Metoprolol Tartrate [Lopressor] 50 mg PO BIDWM 05/26/22 07/20/22 Acetaminophen [Acetaminophen Extra 500 mg PO QID PRN #50 tablet 07/08/22 07/20/22 Strength] methocarbamoL [Methocarbamol] 500 mg PO TID PRN 07/08/22 07/20/22 Lidocaine Patch 5% [Lidoderm Patch] 1 patch TOP DAILY PRN #10 patch 07/10/22 07/20/22 Lidocaine Patch 5% [Lidoderm Patch] 1 patch TOP DAILY PRN #10 patch 07/16/22 07/20/22 levoFLOXacin [Levaquin] 250 mg PO ONCE #10 tablet 07/18/22 07/20/22 Lidocaine Patch 5% [Lidoderm Patch] 1 patch TOP DAILY PRN #10 patch 07/20/22 Oxycodone HCl/Acetaminophen 1 - 2 each PO Q6H PRN #14 tablet 07/22/22 [Percocet 5-325 mg Tablet] - Allergies Allergies/Adverse Reactions: Allergies Allergy/AdvReac Type Severity Reaction Status Date / Time morphine Allergy Intermediate terrors Verified 07/22/22 08:59 gabapentin Allergy Unknown Verified 07/22/22 08:59 ibuprofen AdvReac Unknown Verified 07/22/22 08:59 - Social History Does the pt smoke?: No Smoking Status: Former smoker Does the pt drink ETOH?: Yes Does the pt have substance abuse?: No - Immunizations Immunizations are current?: Yes - POLST Patient has POLST: No PD ED PE NORMAL - Vitals Vital signs reviewed: Yes - General General: Alert and oriented X 3, No acute distress - Cardiac Cardiac: RRR, No murmur - Respiratory Respiratory: No respiratory distress, Clear bilaterally - Abdomen Abdomen: Other (Multiple well-healed abdominal surgical scars, hyperactive bowel sounds but nontender) - Male Male : Other (Indwelling Bowling) - Neuro Neuro: Alert and oriented X 3, Normal speech Results - Vitals Vitals: Vital Signs - 24 hr 07/22/22 07/22/22 08:55 09:14 Temperature 36.9 C Heart Rate 100 90 Respiratory 20 16 Rate Blood Pressure 133/95 H 129/97 H O2 Saturation 96 98 Oxygen O2 Source Room air - Labs Labs: Laboratory Tests 07/22/22 07/22/22 07/22/22 09:13 09:13 10:35 WBC 6.9 RBC 3.99 L Hgb 11.1 L Hct 34.4 L MCV 86.2 MCH 27.8 MCHC 32.3 RDW 15.9 H Plt Count 274 MPV 12.1 H Neut # (Auto) 4.9 Lymph # (Auto) 0.9 L [place] # (Auto) 0.8 Eos # (Auto) 0.3 Baso # (Auto) 0.0 Absolute Nucleated RBC 0.00 Nucleated RBC % 0.0 Sodium 141 Potassium 4.5 Chloride 104 Carbon Dioxide 26 Anion Gap 11.0 BUN 15 Creatinine 0.8 Estimated GFR (MDRD) 105 Glucose 112 H Calcium 8.2 L Total Bilirubin 0.4 AST 11 ALT 12 Alkaline Phosphatase 53 Total Protein 6.3 L Albumin 2.9 L Globulin 3.4 Albumin/Globulin Ratio 0.9 L Urine Color YELLOW Urine Clarity CLOUDY Urine pH 6.5 Ur Specific [place] 1.010 Urine Protein 100 H Urine Glucose (UA) NEGATIVE Urine Ketones NEGATIVE Urine Occult Blood LARGE H Urine Nitrite POSITIVE H Urine Bilirubin NEGATIVE Urine Urobilinogen 0.2 (NORMAL) Ur Leukocyte Esterase MODERATE H Ur Microscopic Review INDICATED Urine Culture Comments Not Reportable - Rads (name of study) CT abdomen and pelvis with IV contrast showing worsening bilateral hydronephrosis and hydroureter with abnormal enhancement with stents in place Radiology: Final report received, EMP read indepedently PD MEDICAL DECISION MAKING - ED course ED course: 47-year-old gentleman who is medically complex given his age who has chronic indwelling Bowling and stents in place that are about 6 months old who presents with pain reminiscent of prior renal colic. His blood work looks fine with normal white count and a metabolic panel showing no kidney injury. CT showing worsening of hydronephrosis with stents in place. Given the above, the case was discussed by phone with on-call urology for [facility], Dr. Rohit Murray, and he did not feel like any urgent therapy was needed, patient already has an appo intment for stent replacement in 10 days and he feels this is appropriate. Patient has been frequent visitor to the Emergency department over the last couple of weeks, that said he has an objectively painful condition that does merit analgesia. Departure - Departure Disposition: 01 Home, Self Care Clinical Impression: Ureteral stent present Hydronephrosis Qualifiers: Hydronephrosis type: unspecified Qualified Code(s): N13.30 - Unspecified hydronephrosis Condition: Serious Record reviewed to determine appropriate education?: Yes Prescriptions: Oxycodone HCl/Acetaminophen [Percocet 5-325 mg Tablet] 1 - 2 each PO Q6H PRN #14 tablet PRN Reason: pain Comments: I sent your prescription electronically to [facility] in [place]. As discussed it seems that your stents are slightly failing, but given that your lab work is normal the urologist at [facility] felt this could continue to wait until your upcoming appointment for stent replacement. Make sure to keep that appointment. Return for new or worsening symptoms. I am prescribing a short course of narcotic pain medication for you. These are potentially dangerous and addictive medications that should be used carefully. These medications may constipate you. Take an [id number] stool softener (docusate) twice daily with plenty of water while taking these medications. If you go 24 hours without a bowel movement, take [id number] miralax, per package instructions. Do not drink or drive while taking these medications. If you received narcotic or sedating medications while in the emergency department, do not drive for 24 hours. Store this medication in a safe, secure place and out of reach of children. It is a violation of federal law to give or sell this medication to another person or to use in a manner other than prescribed. The ED will not refill narcotic prescriptions, including prescriptions lost or stolen. To dispose of unwanted medications: 1. [facility] [address] in [place] has a medication drop box. They accept prescription medications (in pill form) Saturday through Saturday 9:00 a.m. to 5:00 p.m. 2. [facility] [employer] accepts prescription medications (in pill form only) for disposal year round. Call for more information. 3. Contact the [facility] for the next [facility] sponsored prescription drug collection event. , [phone], or [phone]; Note that many narcotic pain relievers also contain Tylenol/acetaminophen. Please ensure that your total dose of acetaminophen from all sources does not exceed 3 g (3000 mg) per day.
[2022-07-22] MEDS ORDERED: iohexoL-300 100 ML VIAL ONE (08:58)
[2022-07-22 09:25] LABS: BASOPHILS % (AUTO) 0.1 %; EOSINOPHILS # (AUTO) 0.3 10^3/uL (0.0-0.7); EOSINOPHILS % (AUTO) 4.4 %; HCT - HEMATOCRIT 34.4 % (42.0-52.0); HGB - HEMOGLOBIN 11.1 g/dL (14.0-18.0); LYMPHOCYTES # (AUTO) 0.9 10^3/uL (1.5-3.5); LYMPHOCYTES % (AUTO) 12.4 %; MEAN CORPUSCULAR HEMOGLOBIN 27.8 pg (27.0-31.0); MEAN CORPUSCULAR HGB CONC 32.3 g/dL (32.0-36.0); MEAN CORPUSCULAR VOLUME 86.2 fL (80.0-94.0); MEAN PLATELET VOLUME 12.1 fL (7.4-11.4); MONOCYTES # (AUTO) 0.8 10^3/uL (0.0-1.0); MONOCYTES % (AUTO) 11.7 %; NEUTROPHILS # (AUTO) 4.9 10^3/uL (1.5-6.6); PLT - PLATELET COUNT 274 10^3/uL (130-450); RED BLOOD COUNT 3.99 10^6/uL (4.70-6.10); RED CELL DISTRIBUTION WIDTH 15.9 % (12.0-15.0); WHITE BLOOD COUNT 6.9 x10^3/uL (4.8-10.8)
[2022-07-22 09:33] LABS: ALBUMIN 2.9 g/dL (3.2-5.5); ALBUMIN/GLOBULIN RATIO 0.9 (1.0-2.2); BILIRUBIN,TOTAL 0.4 mg/dL (0.2-1.0); CALCIUM 8.2 mg/dL (8.5-10.3); CREATININE 0.8 mg/dL (0.6-1.2); POTASSIUM 4.5 mmol/L (3.5-5.0); TOTAL PROTEIN 6.3 g/dL (6.7-8.2)
[2022-07-22] MEDS ORDERED: iohexoL-300 100 ML VIAL IVP ONE (09:57)
--- NOTE | 2022-07-22 10:16 | CT Report ---
PROCEDURE: ABDOMEN/PELVIS W INDICATIONS: iv only, low abd pain CONTRAST: 100ml omni 300 TECHNIQUE: After the administration of IV contrast, 5 mm thick sections acquired from the diaphragms to the symp hysis. 5 mm thick coronal and sagittal reformats were acquired. For radiation dose reduction, the f ollowing was used: automated exposure control, adjustment of mA and/or kV according to patient size. COMPARISON: 07/03/2022, 06/20/2022, 06/11/2022. Correlation is also made with overlapping portions of chest CT angiogram, 07/12/2022. FINDINGS: Image quality: Excellent. ABDOMEN: Lung bases: Lung bases are clear. Heart size is normal. Solid organs: Liver and spleen are normal in size and enhancement. Gallbladder wall does not appear thickened. Biliary system is non dilated. Pancreas enhances normally. No adrenal nodules. Bilateral double-J ureteral stents are seen. There is moderate to prominent right-sided and moderate left-sided hydronephrosis. There is at least moderate right-sided and moderate left-sided hydroureter seen.There is enhancement seen of both proximal ureters. There is mild fatty stranding seen adjacent to both ureters. Peritoneum and bowel: Bowel loops demonstrate normal wall thickness and caliber. No free fluid or a ir. There is a mild burden of stool seen within the colon, which is improved compared to the prior e xamination. Numerous loops of small bowel demonstrate forming stool within them. Nodes and vessels: No retroperitoneal or mesenteric adenopathy by size criteria. Aorta and inferior vena cava are normal in size. Miscellaneous: No ventral hernias. PELVIS: Genitourinary: A Bowling catheter seen, which decompresses the bladder. Miscellaneous: No inguinal adenopathy. There is fullness of the right inguinal canal, which contains fat and soft tissue. Bones: No suspicious bony lesions. No vertebral body compression fractures. IMPRESSION: There is worsening of bilateral hydronephrosis and hydroureter. There is abnormal enhancement of the ureters and fatty stranding seen adjacent to the ureters, which is worrisome for infection. Bilateral ureteral stents are seen in place. There is a mild burden of stool seen within the colon, which is improved compared to the prior examin ation. Numerous loops of small bowel demonstrate forming within them, which is consistent with poor small ethan wel motility. However, no dilated loops of small bowel are seen. Incidental note is made of: Bowling catheter Mild right inguinal hernia Reviewed by: Sravan Bowen MD on 07/22/2022 9:14 AM [facility] Approved by: Sravan Bowen MD on 07/22/2022 9:14 AM [facility] Station ID: [id number]
[2022-07-22] MEDS ORDERED: oxyCODONE 5 MG TABLET PO STA (10:22)
[2022-07-22 11:00] LABS: BILIRUBIN,URINE NEGATIVE (NEGATIVE); GLUCOSE, URINE (UA) NEGATIVE (NEGATIVE); KETONES,URINE (UA) NEGATIVE (NEGATIVE); LEUKOCYTE ESTERASE, URINE MODERATE (NEGATIVE); NITRITE,URINE POSITIVE (NEGATIVE); OCCULT BLOOD,URINE LARGE (NEGATIVE); PH,URINE 6.5 PH (5.0-7.5); PROTEIN,URINE 100 mg/dL (NEGATIVE); UROBILINOGEN,URINE 0.2 (NORMAL) E.U./dL (NORMAL)
[2022-07-22 11:03] LABS: CLARITY,URINE CLOUDY (CLEAR)
[2022-07-22 11:16] LABS: BACTERIA,URINE Many /HPF (None Seen); SQUAMOUS EPITHELIAL CELL,UR NONE SEEN (<= Few); WBC,URINE >25 /HPF (0-3)
[2022-07-22 12:09] VITALS: BP 127/97
--- NOTE | 2022-07-24 12:06 | ED Physician Documentation ---
ED Addendum - Addendum Addendum: 07/24/22 12:05 Patient's urine culture came back positive for MRSA. He is on Levaquin but it is resistant to this. Therefore we will change him to Bactrim. Prescription sent to [facility] in [place]. Departure - Departure Disposition: 01 Home, Self Care Clinical Impression: Ureteral stent present Hydronephrosis Qualifiers: Hydronephrosis type: unspecified Qualified Code(s): N13.30 - Unspecified hydronephrosis Condition: Serious Prescriptions: Sulfamethox/Trimeth 800/160 [Bactrim Ds 800/160] 1 each PO BID #14 tablet Oxycodone HCl/Acetaminophen [Percocet 5-325 mg Tablet] 1 - 2 each PO Q6H PRN #14 tablet PRN Reason: pain Comments: I sent your prescription electronically to [facility] in [place]. As discussed it seems that your stents are slightly failing, but given that your lab work is normal the urologist at [facility] felt this could continue to wait until your upcoming appointment for stent replacement. Make sure to keep that appointment. Return for new or worsening symptoms. I am prescribing a short course of narcotic pain medication for you. These are potentially dangerous and addictive medications that should be used carefully. These medications may constipate you. Take an qgvo-voc-ivcsvfv stool softener ( docusate) twice daily with plenty of water while taking these medications. If you go 24 hours without a bowel movement, take aela-ucf-hshnwpr miralax, per package instructions. Do not drink or drive while taking these medications. If you received narcotic or sedating medications while in the emergency department, do not drive for 24 hours. Store this medication in a safe, secure place and out of reach of children. It is a violation of federal law to give or sell this medication to another person or to use in a manner other than prescribed. The ED will not refill narcotic prescriptions, including prescriptions lost or stolen. To dispose of unwanted medications: 1. [facility] at [address] in [place] has a medication drop box. They accept prescription medications (in pill form) Saturday through Saturday 9:00 a.m. to 5:00 p.m. 2. The [facility] [employer] accepts prescription medications (in pill form only) for disposal year round. Call for more information. 3. Contact the [facility] for the next [facility] sponsored prescription drug collection event. , [phone], or [phone]; Note that many narcotic pain relievers also contain Tylenol/acetaminophen. Please ensure that your total dose of acetaminophen from all sources does not exceed 3 g (3000 mg) per day. Discharge Date/Time: 07/22/22 12:40
== END 2022-07-22 12:40 | disposition home or self-care (01) ==
LOC: EDUNIT# → ED 08:51
DX: N13.30 Unspecified hydronephrosis (principal); Z96.0 Presence of urogenital implants; F17.200 Nicotine dependence, unspecified, uncomplicated
CPT/HCPCS: 36415; 74177; 80053; 81001; 85025; 87086; 87181; 96374; 99284; A9270; Q9967; 81003

== ENCOUNTER → 2022-07-22 | Outpatient (CLI) | payer MEDICARE, MEDICAID | END | disposition critical access hospital (66) | LOC: EMS 08:30 | DX: R10.9 Unspecified abdominal pain (principal); G89.29 Other chronic pain | CPT/HCPCS: A0425; A0429 ==

== ENCOUNTER → 2022-07-22 | Outpatient (CLI) | payer MEDICARE, MEDICAID | END | disposition home or self-care (01) | LOC: EMS 12:40 | PROVIDERS: ATTEND Emergency Medicine | DX: G82.50 Quadriplegia, unspecified (principal) | CPT/HCPCS: A0425; A0428 ==

== ENCOUNTER 2022-07-23 21:26 | Outpatient (CLI) | payer MEDICARE, MEDICAID | END 2022-07-23 21:27 | disposition short-term general hospital (02) | LOC: EMS 21:26 | DX: R10.32 Left lower quadrant pain (principal); R11.0 Nausea; R10.814 Left lower quadrant abdominal tenderness | CPT/HCPCS: A0425; A0427; A0888 ==

== ENCOUNTER 2022-07-25 07:45 | Outpatient (CLI) | payer MEDICARE, MEDICAID | END 2022-07-25 23:59 | disposition EMS.NT | LOC: EMS 07:45 | DX: R25.1 Tremor, unspecified (principal) ==

== ENCOUNTER 2022-07-28 20:34 | Emergency (ER) | payer MEDICARE, MEDICAID ==
[2022-07-28 20:40] VITALS: BP 139/90
[2022-07-28] MEDS ORDERED: oxyCODONE 5 MG TABLET PO STA (20:43)
[2022-07-28] MEDS ORDERED: oxyCODONE/ACET 5/325 Prepack 4 PO STA (20:43)
--- NOTE | 2022-07-28 20:44 | ED Physician Documentation ---
PD HPI ABD PAIN - Stated complaint Stated Complaint: BILAT FLANK PAIN - Chief complaint Chief Complaint: Abd Pain - History obtained from History obtained from: Patient, EMS - History of Present Illness Timing - onset: How many weeks ago (has had ongoing bilateral flank pains. Is due to see Urologist this coming Saturday for stent replacements. Has glover in place. He states recently seen for UTI/pain and Rx antibiotic which was changed to Bactrim 3 days ago based on culture. Still with flank pain.) Timing - duration: Weeks Timing - details: Gradual onset, Still present, Waxing and waning Quality: Cramping, Aching, Pain Location: Suprapubic Radiation: Left flank, Right flank Associated symptoms: Other (glover catheter has normal output per pateint.). No: Fever, Nausea, Vomiting, Diarrhea Similar symptoms before: Diagnosis (kidney hydronephrosis with old stants that are not draining fully, per recent ER visit/CT scan.) Recently seen: Emergency Dept Review of Systems Constitutional: denies: Fever, Chills Nose: denies: Rhinorrhea / runny nose, Congestion Throat: denies: Sore throat Respiratory: denies: Cough GI: reports: Nausea. denies: Vomiting Skin: denies: Rash, Lesions PD PAST MEDICAL HISTORY - Past Medical History Cardiovascular: Hypertension, Murmur, Other Respiratory: Asthma Neuro: Other Endocrine/Autoimmune: None GI: Chronic constipation : Incontinence HEENT: None Psych: Depression Musculoskeletal: Chronic back pain, Other Derm: Other - Past Surgical History Past Surgical History: Yes General: Gastric surgery Ortho: Spine surgery HEENT: Tonsil/Adenoidectomy - Present Medications Home Medications: Ambulatory Orders Medication Instructions Recorded Confirmed Pregabalin [Lyrica] 300 mg PO 0600,1800 08/02/21 07/20/22 Duloxetine HCl [Cymbalta] 60 mg PO DAILY 05/26/22 07/20/22 Metoprolol Tartrate [Lopressor] 50 mg PO BIDWM 05/26/22 07/20/22 Acetaminophen [Acetaminophen Extra 500 mg PO QID PRN #50 tablet 07/08/22 07/20/22 Strength] methocarbamoL [Methocarbamol] 500 mg PO TID PRN 07/08/22 07/20/22 Lidocaine Patch 5% [Lidoderm Patch] 1 patch TOP DAILY PRN #10 patch 07/10/22 07/20/22 Lidocaine Patch 5% [Lidoderm Patch] 1 patch TOP DAILY PRN #10 patch 07/16/22 07/20/22 levoFLOXacin [Levaquin] 250 mg PO ONCE #10 tablet 07/18/22 07/20/22 Lidocaine Patch 5% [Lidoderm Patch] 1 patch TOP DAILY PRN #10 patch 07/20/22 Oxycodone HCl/Acetaminophen 1 - 2 each PO Q6H PRN #14 tablet 07/22/22 [Percocet 5-325 mg Tablet] Sulfamethox/Trimeth 800/160 1 each PO BID #14 tablet 07/24/22 [Bactrim Ds 800/160] Oxycodone HCl/Acetaminophen 1 each PO TID PRN #14 tablet 07/28/22 [Percocet 5-325 mg Tablet] - Allergies Allergies/Adverse Reactions: Allergies Allergy/AdvReac Type Severity Reaction Status Date / Time morphine Allergy Intermediate terrors Verified 07/28/22 20:35 gabapentin Allergy Unknown Verified 07/28/22 20:35 ibuprofen AdvReac Unknown Verified 07/28/22 20:35 - Social History Does the pt smoke?: No Smoking Status: Former smoker Does the pt drink ETOH?: Yes Does the pt have substance abuse?: No - Immunizations Immunizations are current?: Yes - POLST Patient has POLST: No PD ED PE NORMAL - Vitals Vital signs reviewed: Yes - General General: Alert and oriented X 3, Well developed/nourished - Cardiac Cardiac: RRR, No murmur - Respiratory Respiratory: Clear bilaterally - Abdomen Abdomen: Normal bowel sounds, Soft, Non distended, Other (some tenderness in bladder area without distension. ) Results - Vitals Vitals: Vital Signs - 24 hr 07/28/22 20:35 Temperature 36.5 C Heart Rate 101 H Respiratory 18 Rate Blood Pressure 139/90 H O2 Saturation 94 Oxygen O2 Source Room air PD MEDICAL DECISION MAKING - ED course Complexity details: reviewed old records (recent ER visit with CT showing hydronephrosis bilat. stents in place. UTI on UA. ), considered differential (seems ongoing pain without new symptoms per se. bladder scan showing bladder emptying. Due to see Urologist in 4 days. Can cover with pain meds in interim. ), d/w patient Departure - Departure Disposition: 01 Home, Self Care Clinical Impression: Bilateral flank pain Condition: Stable Record reviewed to determine appropriate education?: Yes Follow-Up: Danika García PA-C [Primary Care Provider] - Prescriptions: Oxycodone HCl/Acetaminophen [Percocet 5-325 mg Tablet] 1 each PO TID PRN #14 tablet PRN Reason: pain Comments: Your bladder scanner showed minimal urine in the bladder so the Glover does seem to be working appropriately. We can have you take oxycodone every 6-8 hours if needed for pain. Follow-up with your urologist as planned this coming Saturday. Continue with the Bactrim antibiotic. I transmitted your prescription to [facility] pharmacy in [place]. I am prescribing a short course of narcotic pain medication for you. These are potentially dangerous and addictive medications that should be used carefully. These medications may constipate you. Take an cwrn-fyh-dgqkwlh stool softener such as docusate twice daily with plenty of water while taking these medications. If you go 24 hours without a bowel movement, take ybpy-auc-jjnxanl MiraLAX, per package instructions. Do not drink or drive while taking these medications. If you received narcotic or sedating medications while in the emergency department do not drive for 24 hours. Store this medication in a safe, secure place and out of reach of children. It is a violation of federal law to give or sell this medication to another person or to use in a manner other than prescribed. The ED will not refill narcotic prescriptions, including prescriptions lost or stolen. You can dispose of unwanted medications at the [facility]'s office or at several pharmacies such as [facility]. Discharge Date/Time: 07/28/22 21:18
== END 2022-07-28 21:18 | disposition home or self-care (01) ==
LOC: ED 20:34
DX: N39.0 Urinary tract infection, site not specified (principal); N13.30 Unspecified hydronephrosis; R10.9 Unspecified abdominal pain; Z87.891 Personal history of nicotine dependence; I10 Essential (primary) hypertension; J45.909 Unspecified asthma, uncomplicated
CPT/HCPCS: 51798; 99282; 99283; A9270

== ENCOUNTER 2022-07-28 21:21 | Outpatient (CLI) | payer MEDICARE, MEDICAID | END 2022-07-28 21:22 | disposition home or self-care (01) | LOC: EMS 21:21 | PROVIDERS: ATTEND Emergency Medicine | DX: M54.9 Dorsalgia, unspecified (principal); G82.20 Paraplegia, unspecified | CPT/HCPCS: A0425; A0428 ==

== ENCOUNTER → 2022-07-28 | Outpatient (CLI) | payer MEDICARE, MEDICAID | END | disposition critical access hospital (66) | LOC: EMS 20:11 | DX: M54.50 Low back pain, unspecified (principal); G82.20 Paraplegia, unspecified; Z74.01 Bed confinement status | CPT/HCPCS: A0425; A0429 ==

== ENCOUNTER → 2022-07-30 | Outpatient (CLI) | payer MEDICARE, MEDICAID | END | disposition short-term general hospital (02) | LOC: EMS 15:56 | DX: N39.0 Urinary tract infection, site not specified (principal); R00.0 Tachycardia, unspecified; R61 Generalized hyperhidrosis; Z91.A4 Caregiver's other noncompliance with patient's medication regimen | CPT/HCPCS: A0425; A0429 ==

== ENCOUNTER 2022-08-05 10:38 | Outpatient (CLI) | payer MEDICARE, MEDICAID | END 2022-08-05 10:39 | disposition critical access hospital (66) | LOC: EMS 10:38 | DX: N39.0 Urinary tract infection, site not specified (principal); N20.0 Calculus of kidney; G82.20 Paraplegia, unspecified | CPT/HCPCS: A0425; A0429 ==

== ENCOUNTER 2022-08-05 11:01 | Emergency (ER) | payer MEDICARE, MEDICAID ==
[2022-08-05 11:57] LABS: BASOPHILS # (AUTO) 0.1 10^3/uL (0.0-0.1); EOSINOPHILS # (AUTO) 0.2 10^3/uL (0.0-0.7); EOSINOPHILS % (AUTO) 2.9 %; HCT - HEMATOCRIT 38.5 % (42.0-52.0); HGB - HEMOGLOBIN 12.1 g/dL (14.0-18.0); LYMPHOCYTES # (AUTO) 1.2 10^3/uL (1.5-3.5); LYMPHOCYTES % (AUTO) 17.1 %; MEAN CORPUSCULAR HEMOGLOBIN 26.9 pg (27.0-31.0); MEAN CORPUSCULAR HGB CONC 31.4 g/dL (32.0-36.0); MEAN CORPUSCULAR VOLUME 85.7 fL (80.0-94.0); MEAN PLATELET VOLUME 10.5 fL (7.4-11.4); MONOCYTES # (AUTO) 0.3 10^3/uL (0.0-1.0); MONOCYTES % (AUTO) 4.6 %; NEUTROPHILS # (AUTO) 5.1 10^3/uL (1.5-6.6); NEUTROPHILS % (AUTO) 72.5 %; PLT - PLATELET COUNT 355 10^3/uL (130-450); RED BLOOD COUNT 4.49 10^6/uL (4.70-6.10); RED CELL DISTRIBUTION WIDTH 16.6 % (12.0-15.0)
[2022-08-05 12:11] LABS: ALBUMIN 3.5 g/dL (3.2-5.5); ALBUMIN/GLOBULIN RATIO 0.9 (1.0-2.2); BILIRUBIN,TOTAL 0.4 mg/dL (0.2-1.0); CALCIUM 9.1 mg/dL (8.5-10.3); CREATININE 0.9 mg/dL (0.6-1.2); POTASSIUM 4.3 mmol/L (3.5-5.0); TOTAL PROTEIN 7.3 g/dL (6.7-8.2)
[2022-08-05] MEDS ORDERED: LIDOCAINE-MPF 2% 6 ML in SODIUM CHLORIDE 0.9% 50 ML IV STA (12:14)
[2022-08-05] MEDS ORDERED: oxyCODONE 5 MG TABLET PO STA (12:15)
--- NOTE | 2022-08-05 12:22 | ED Physician Documentation ---
History of Present Illness - Stated complaint Stated Complaint: KIDNEY PX - Chief complaint Chief Complaint: Back Pain - History obtained from History obtained from: Patient, EMS - History of Present Illness Timing: Other (2 months) Pain level max: 8 Pain level now: 8 - Additonal information Additional information: 47-year-old male presents to the emergency department with bilateral kidney pain. He states is been ongoing for the past several months. He was supposed to have his stents removed at [facility] and lithotripsy. He states that they delayed the procedure by another month. He was recently at [facility] and was prescribed Percocet. He states he is out of this now. He is requesting a refill of Percocet. He has had at least 7 different prescriptions for Percocet in the past 2 months from 5 different providers. No fevers. No vomiting. Nothing makes it better or worse. He states he was treated for UTI about 2 weeks ago at [facility]. Review of Systems Ten Systems: 10 systems reviewed and negative Constitutional: denies: Fever, Chills Ears: denies: Ear pain Nose: denies: Rhinorrhea / runny nose, Congestion Throat: denies: Sore throat Cardiac: denies: Chest pain / pressure Respiratory: denies: Dyspnea, Cough GI: denies: Vomiting, Diarrhea : reports: Other (Chronic indwelling Bowling catheter) Skin: denies: Rash Musculoskeletal: denies: Neck pain Neurologic: denies: Headache PD PAST MEDICAL HISTORY - Past Medical History Cardiovascular: Hypertension, Murmur, Other Respiratory: Asthma Neuro: Other Endocrine/Autoimmune: None GI: Chronic constipation : Incontinence HEENT: None Psych: Depression Musculoskeletal: Chronic back pain, Other Derm: Other - Past Surgical History Past Surgical History: Yes General: Gastric surgery Ortho: Spine surgery HEENT: Tonsil/Adenoidectomy - Present Medications Home Medications: Ambulatory Orders Medication Instructions Recorded Confirmed Pregabalin [Lyrica] 300 mg PO 0600,1800 08/02/21 07/20/22 Duloxetine HCl [Cymbalta] 60 mg PO DAILY 05/26/22 07/20/22 Metoprolol Tartrate [Lopressor] 50 mg PO BIDWM 05/26/22 07/20/22 Acetaminophen [Acetaminophen Extra 500 mg PO QID PRN #50 tablet 07/08/22 07/20/22 Strength] methocarbamoL [Methocarbamol] 500 mg PO TID PRN 07/08/22 07/20/22 Lidocaine Patch 5% [Lidoderm Patch] 1 patch TOP DAILY PRN #10 patch 07/10/22 07/20/22 Lidocaine Patch 5% [Lidoderm Patch] 1 patch TOP DAILY PRN #10 patch 07/16/22 07/20/22 levoFLOXacin [Levaquin] 250 mg PO ONCE #10 tablet 07/18/22 07/20/22 Lidocaine Patch 5% [Lidoderm Patch] 1 patch TOP DAILY PRN #10 patch 07/20/22 Oxycodone HCl/Acetaminophen 1 - 2 each PO Q6H PRN #14 tablet 07/22/22 [Percocet 5-325 mg Tablet] Sulfamethox/Trimeth 800/160 1 each PO BID #14 tablet 07/24/22 [Bactrim Ds 800/160] Oxycodone HCl/Acetaminophen 1 each PO TID PRN #14 tablet 07/28/22 [Percocet 5-325 mg Tablet] Ketorolac [Toradol] 10 mg PO Q6H PRN #20 tablet 08/05/22 - Allergies Allergies/Adverse Reactions: Allergies Allergy/AdvReac Type Severity Reaction Status Date / Time morphine Allergy Intermediate terrors Verified 08/05/22 11:11 gabapentin Allergy Unknown Verified 08/05/22 11:11 ibuprofen AdvReac Unknown Verified 08/05/22 11:11 - Social History Does the pt smoke?: No Smoking Status: Former smoker Does the pt drink ETOH?: Yes Does the pt have substance abuse?: No - Immunizations Immunizations are current?: Yes - POLST Patient has POLST: No PD ED PE NORMAL - Vitals Vital signs reviewed: Yes - General General: Alert and oriented X 3, No acute distress - HEENT HEENT: Moist mucous membranes - Neck Neck: Supple, no meningeal sign - Cardiac Cardiac: RRR - Respiratory Respiratory: No respiratory distress, Clear bilaterally - Abdomen Abdomen: Soft, Non tender, Non distended - Back Back: No CVA TTP, No spinal TTP - Derm Derm: Warm and dry - Extremities Extremities: No deformity - Neuro Neuro: Alert and oriented X 3 - Psych Psych: Normal mood, Normal affect Results - Vitals Vitals: Vital Signs - 24 hr 08/05/22 08/05/22 08/05/22 11:11 11:15 12:21 Temperature 37 C 37.0 C Heart Rate 84 84 88 Respiratory 18 18 14 Rate Blood Pressure 161/118 H 161/118 H 152/114 H O2 Saturation 99 99 97 08/05/22 14:00 Temperature Heart Rate 83 Respiratory 15 Rate Blood Pressure 140/90 H O2 Saturation 96 Oxygen O2 Source Room air - Labs Labs: Laboratory Tests 08/05/22 08/05/22 08/05/22 11:52 11:52 11:52 WBC 7.0 RBC 4.49 L Hgb 12.1 L Hct 38.5 L MCV 85.7 MCH 26.9 L MCHC 31.4 L RDW 16.6 H Plt Count 355 MPV 10.5 Neut # (Auto) 5.1 Lymph # (Auto) 1.2 L Dickens # (Auto) 0.3 Eos # (Auto) 0.2 Baso # (Auto) 0.1 Absolute Nucleated RBC 0.00 Nucleated RBC % 0.0 Sodium 139 Potassium 4.3 Chloride 105 Carbon Dioxide 25 Anion Gap 9.0 BUN 22 H Creatinine 0.9 Estimated GFR (MDRD) 91 Glucose 101 H Lactic Acid 1.9 Calcium 9.1 Total Bilirubin 0.4 AST 19 ALT 17 Alkaline Phosphatase 63 Total Protein 7.3 Albumin 3.5 Globulin 3.8 Albumin/Globulin Ratio 0.9 L Lipase 43 PD Medical Decision Making - ED course Complexity details: reviewed results, re-evaluated patient, considered differential, d/w patient ED course: 47-year-old male with ongoing bilateral flank pain. No acute findings on laboratory testing. No fevers. No evidence of sepsis. Due to the number of recent narcotic prescriptions from multiple different providers, inform the patient that I would not prescribe narcotic pain medication for home. He was given a dose of oxycodone here along with IV lidocaine and Toradol. Pain well controlled here. He request Toradol for home. Has had multiple recent CT scans. No indication for repeat CT today. Patient will follow up with his PCP for further care. Patient counseled regarding signs and symptoms for which I believe and urgent re-evaluation would be necessary. Patient with good understanding of and agreement to plan and is comfortable going home at this time This document was made in part using voice recognition software. While efforts are made to proofread this document, sound alike and grammatical errors may occur. Departure - Departure Disposition: Home, Self Care Clinical Impression: Flank pain Condition: Good Instructions: ED Chronic Pain Management Follow-Up: Danika García PA-C [Provider Admit Priv/Credential] - Prescriptions: Ketorolac [Toradol] 10 mg PO Q6H PRN #20 tablet PRN Reason: back pain Comments: Your prescription was sent to [facility] in [place]. Please follow-up with your doctor for further care. Please return if you worsen. Please follow-up closely with your primary care provider to discuss your pain management. As we discussed, will not be able to prescribe any narcotic pain medication for you here as you have had 7 narcotic prescriptions from 5 different prescribers in the past 2 months. Any future narcotic medications will need to come from your primary care provider or pain specialist Discharge Date/Time: 08/05/22 15:20
[2022-08-05 14:11] VITALS: BP 140/90
[2022-08-05] MEDS ORDERED: KETOROLAC 30 MG/ML VIAL IM STA (15:09)
== END 2022-08-05 15:20 | disposition home or self-care (01) ==
LOC: EDUNIT# → ED 11:01
DX: R10.9 Unspecified abdominal pain (principal); Z87.891 Personal history of nicotine dependence; I10 Essential (primary) hypertension
CPT/HCPCS: 36415; 80053; 83605; 83690; 85025; 96372; 96374; 99282; 99284; A9270; J7040

== ENCOUNTER 2022-08-05 15:26 | Outpatient (CLI) | payer MEDICARE, MEDICAID | END 2022-08-05 15:27 | disposition home or self-care (01) | LOC: EMS 15:26 | PROVIDERS: ATTEND Emergency Medicine | DX: M54.9 Dorsalgia, unspecified (principal); G82.20 Paraplegia, unspecified | CPT/HCPCS: A0425; A0428 ==

== ENCOUNTER 2022-08-06 16:52 | Outpatient (CLI) | payer MEDICARE, MEDICAID | END 2022-08-06 16:53 | disposition short-term general hospital (02) | LOC: EMS 16:52 | DX: M54.9 Dorsalgia, unspecified (principal); G82.20 Paraplegia, unspecified | CPT/HCPCS: A0425; A0429; A0888 ==

== ENCOUNTER 2022-08-09 20:14 | Outpatient (CLI) | payer MEDICARE, MEDICAID | END 2022-08-09 20:15 | disposition critical access hospital (66) | LOC: EMS 20:14 | DX: N20.0 Calculus of kidney (principal); G82.20 Paraplegia, unspecified | CPT/HCPCS: A0425; A0429 ==

== ENCOUNTER 2022-08-09 20:41 | Emergency (ER) | payer MEDICARE, MEDICAID ==
[2022-08-09] MEDS ORDERED: DOXYCYCLINE 100 MG TABLET PO STA (20:50)
[2022-08-09] MEDS ORDERED: HYDROcod/ACETAM 5/325 MG TABLET PO STA (20:50)
[2022-08-09 20:53] VITALS: BP 148/111
--- NOTE | 2022-08-09 20:54 | ED Physician Documentation ---
History of Present Illness - Stated complaint Stated Complaint: KIDNEY PAIN - History obtained from History obtained from: Patient, EMS - Additonal information Additional information: The patient comes to the emergency department with chief complaint of back pain. He has longstanding back pain, which he attributes to his ongoing kidney issues. The patient states that he was diagnosed with a UTI and started on Bactrim at [facility]. However, he returned for pain management after being on the Bactrim for several days and was told that actually according to his sensitivities, he should be on doxycycline instead. Patient was given a prescription for doxycycline but he states that because of this now and because there is no gas in his car, nobody has been able to get the prescription for him. He states he called the nurse line at his primary doctor's office and was told to just continue the Bactrim for now until he can get his doxycycline filled. The patient denies any vomiting. No fevers. He does not feel as though he is getting sicker. No other complaints at this time. The patient has chronic Bowling catheter. Review of Systems Ten Systems: 10 systems reviewed and negative Constitutional: reports: Reviewed and negative Eyes: reports: Reviewed and negative Ears: reports: Reviewed and negative Nose: reports: Reviewed and negative Throat: reports: Reviewed and negative Cardiac: reports: Reviewed and negative Respiratory: reports: Reviewed and negative GI: reports: Reviewed and negative : reports: Reviewed and negative Skin: reports: Reviewed and negative Musculoskeletal: reports: Back pain Neurologic: reports: Reviewed and negative Psychiatric: reports: Reviewed and negative Endocrine: reports: Reviewed and negative Immunocompromised: reports: Reviewed and negative PD PAST MEDICAL HISTORY - Past Medical History Cardiovascular: Hypertension, Murmur, Other Respiratory: Asthma Neuro: Other Endocrine/Autoimmune: None GI: Chronic constipation : Incontinence HEENT: None Psych: Depression Musculoskeletal: Chronic back pain, Other Derm: Other - Past Surgical History Past Surgical History: Yes General: Gastric surgery Ortho: Spine surgery HEENT: Tonsil/Adenoidectomy - Present Medications Home Medications: Ambulatory Orders Medication Instructions Recorded Confirmed Pregabalin [Lyrica] 300 mg PO 0600,1800 08/02/21 07/20/22 Duloxetine HCl [Cymbalta] 60 mg PO DAILY 05/26/22 07/20/22 Metoprolol Tartrate [Lopressor] 50 mg PO BIDWM 05/26/22 07/20/22 Acetaminophen [Acetaminophen Extra 500 mg PO QID PRN #50 tablet 07/08/22 Strength] methocarbamoL [Methocarbamol] 500 mg PO TID PRN 07/08/22 07/20/22 Lidocaine Patch 5% [Lidoderm Patch] 1 patch TOP DAILY PRN #10 patch 07/10/22 07/20/22 Lidocaine Patch 5% [Lidoderm Patch] 1 patch TOP DAILY PRN #10 patch 07/16/22 07/20/22 levoFLOXacin [Levaquin] 250 mg PO ONCE #10 tablet 07/18/22 07/20/22 Lidocaine Patch 5% [Lidoderm Patch] 1 patch TOP DAILY PRN #10 patch 07/20/22 Oxycodone HCl/Acetaminophen 1 - 2 each PO Q6H PRN #14 tablet 07/22/22 [Percocet 5-325 mg Tablet] Sulfamethox/Trimeth 800/160 1 each PO BID #14 tablet 07/24/22 [Bactrim Ds 800/160] Oxycodone HCl/Acetaminophen 1 each PO TID PRN #14 tablet 07/28/22 [Percocet 5-325 mg Tablet] Ketorolac [Toradol] 10 mg PO Q6H PRN #20 tablet 08/05/22 - Allergies Allergies/Adverse Reactions: Allergies Allergy/AdvReac Type Severity Reaction Status Date / Time morphine Allergy Intermediate terrors Verified 08/05/22 11:11 gabapentin Allergy Unknown Verified 08/05/22 11:11 ibuprofen AdvReac Unknown Verified 08/05/22 11:11 - Social History Does the pt smoke?: No Smoking Status: Former smoker Does the pt drink ETOH?: Yes Does the pt have substance abuse?: No - Immunizations Immunizations are current?: Yes - POLST Patient has POLST: No PD ED PE NORMAL - Vitals Vital signs reviewed: Yes - General General: Alert and oriented X 3, No acute distress, Well developed/nourished - HEENT HEENT: Atraumatic, PERRL, EOMI, Moist mucous membranes - Neck Neck: Supple, no meningeal sign - Cardiac Cardiac: RRR, No murmur - Respiratory Respiratory: No respiratory distress - Abdomen Abdomen: Soft, Non tender, Non distended - Derm Derm: Normal color, Warm and dry, No rash - Extremities Extremities: No deformity - Neuro Neuro: Alert and oriented X 3 - Psych Psych: Normal mood, Normal affect Results - Vitals Vitals: Oxygen O2 Source Room air PD Medical Decision Making - ED course Complexity details: considered differential, d/w patient ED course: The patient is very well-known to our emergency department for similar symptoms and similar struggles getting his medications. I discussed with the patient that at this point in time, I cannot do anything about his inability to get the doxycycline, but since the patient does not have any infectious symptoms and he is chronically catheterized, I feel that continuing Bactrim for now is probably the best thing he can do until he can get the doxycycline filled. I have given him a dose of doxycycline and of hydrocodone here tonight. The patient is stable for discharge home. We have discussed the usual indications for return. Departure - Departure Disposition: Home, Self Care Clinical Impression: Back pain Qualifiers: Back pain location: low back pain Chronicity: chronic Back pain laterality: bilateral Sciatica presence: without sciatica Qualified Code(s): M54.50 - Low back pain, unspecified; G89.29 - Other chronic pain UTI (urinary tract infection) Qualifiers: Urinary tract infection type: acute cystitis Hematuria presence: without hematuria Qualified Code(s): N30.00 - Acute cystitis without hematuria Condition: Stable Instructions: ED UTI Cystitis Male, ED Neck Back Pain General
== END 2022-08-09 21:02 | disposition home or self-care (01) ==
LOC: EDUNIT# → ED 20:41
DX: M54.50 Low back pain, unspecified (principal); G89.29 Other chronic pain; N30.00 Acute cystitis without hematuria; Z87.891 Personal history of nicotine dependence
CPT/HCPCS: 99282; 99283; A9270

== ENCOUNTER 2022-08-09 21:05 | Outpatient (CLI) | payer MEDICARE, MEDICAID | END 2022-08-09 21:06 | disposition home or self-care (01) | LOC: EMS 21:05 | PROVIDERS: ATTEND Emergency Medicine | DX: G82.20 Paraplegia, unspecified (principal) | CPT/HCPCS: A0425; A0428 ==

== ENCOUNTER 2022-08-11 18:59 | Outpatient (CLI) | payer MEDICARE, MEDICAID | END 2022-08-11 19:00 | disposition critical access hospital (66) | LOC: EMS 18:59 | DX: N23 Unspecified renal colic (principal); R50.9 Fever, unspecified; R63.8 Other symptoms and signs concerning food and fluid intake | CPT/HCPCS: A0425; A0429 ==

== ENCOUNTER 2022-08-11 19:25 | Emergency (ER) | payer MEDICARE, MEDICAID ==
--- NOTE | 2022-08-11 19:47 | ED Physician Documentation ---
PD HPI BACK PAIN - Stated complaint Stated Complaint: KIDNEY PAIN - Chief complaint Chief Complaint: Fever - History obtained from History obtained from: Patient - History of Present Illness Timing - onset: Enter time (18:00), Today Timing - details: Waxing and waning Location: Mid, Right, Left Quality: Pain Associated symptoms: Fever (Tmax 101) Improves with: Nothing Worsened by: Other (no exacerbating factors) - Additional information Additional information: HPI from patient. BIBA for fever, back pain. Patient is well known to this ED: bipin is patient's 13th [facility] ED visit within past month and he has also had three ED visits to ED in this same time span. Patient has 36 previous [facility] ED visits over past 12 months involving five different EDs. Patient c/o mid/low back pain, bilaterally. At approximately 6 PM today, he felt as though he had a fever and took his temperature with result of 99 degrees. He retook his temperature at 6:30 PM and result was 101. He has had sweats and chills for most of the day today. He has had cough since this morning with one episode of hemoptysis this afternoon. Denies chest pain, shortness of breath. He is currently on an antibiotic (doxycycline) which he started 2 days ago; this had been prescribed from ED for UTI (patient has indwelling glover catheter as well as bilateral J stents and UTI is a recurrent diagnosis for him) but due to weather conditions, he could not fill the rx until 2 days ago. Patient says he was to have the bilateral ureteral stents removed and replaced this month but this was postponed until August Review of Systems Constitutional: reports: Fever, Chills, Myalgias, Sweats GI: denies: Abdominal Pain, Nausea, Vomiting PD PAST MEDICAL HISTORY - Past Medical History Cardiovascular: Hypertension, Murmur, Other Respiratory: Asthma Neuro: Other Endocrine/Autoimmune: None GI: Chronic constipation : Incontinence HEENT: None Psych: Depression Musculoskeletal: Chronic back pain, Other Derm: Other - Past Surgical History Past Surgical History: Yes General: Gastric surgery Ortho: Spine surgery HEENT: Tonsil/Adenoidectomy - Present Medications Home Medications: Ambulatory Orders Medication Instructions Recorded Confirmed Pregabalin [Lyrica] 300 mg PO 0600,1800 08/02/21 08/11/22 Duloxetine HCl [Cymbalta] 60 mg PO DAILY 05/26/22 08/11/22 Metoprolol Tartrate [Lopressor] 50 mg PO BIDWM 05/26/22 08/11/22 Acetaminophen [Acetaminophen Extra 500 mg PO QID PRN #50 tablet 07/08/22 08/11/22 Strength] methocarbamoL [Methocarbamol] 500 mg PO TID PRN 07/08/22 08/11/22 Lidocaine Patch 5% [Lidoderm Patch] 1 patch TOP DAILY PRN #10 patch 07/10/22 08/11/22 Lidocaine Patch 5% [Lidoderm Patch] 1 patch TOP DAILY PRN #10 patch 07/16/22 08/11/22 levoFLOXacin [Levaquin] 250 mg PO ONCE #10 tablet 07/18/22 08/11/22 Lidocaine Patch 5% [Lidoderm Patch] 1 patch TOP DAILY PRN #10 patch 07/20/22 08/11/22 Oxycodone HCl/Acetaminophen 1 - 2 each PO Q6H PRN #14 tablet 07/22/22 08/11/22 [Percocet 5-325 mg Tablet] Sulfamethox/Trimeth 800/160 1 each PO BID #14 tablet 07/24/22 08/11/22 [Bactrim Ds 800/160] Oxycodone HCl/Acetaminophen 1 each PO TID PRN #14 tablet 07/28/22 08/11/22 [Percocet 5-325 mg Tablet] Ketorolac [Toradol] 10 mg PO Q6H PRN #20 tablet 08/05/22 08/11/22 Oseltamivir [Tamiflu] 75 mg PO BID #9 cap 08/11/22 - Allergies Allergies/Adverse Reactions: Allergies Allergy/AdvReac Type Severity Reaction Status Date / Time morphine Allergy Intermediate terrors Verified 08/13/22 14:15 gabapentin Allergy Unknown Verified 08/13/22 14:15 ibuprofen AdvReac Unknown Verified 08/13/22 14:15 - Social History Does the pt smoke?: No Smoking Status: Never smoker Does the pt drink ETOH?: Yes Does the pt have substance abuse?: No - Immunizations Immunizations are current?: Yes - POLST Patient has POLST: No PD ED PE NORMAL - Vitals Vital signs reviewed: Yes - General General: Alert and oriented X 3, No acute distress - HEENT HEENT: Moist mucous membranes - Cardiac Cardiac: No murmur - Respiratory Respiratory: No respiratory distress - Abdomen Abdomen: Soft, Non tender PD ED PE EXPANDED - Cardiac Cardiac: Tachy, Regular Rhythm Results - Vitals Vitals: Oxygen O2 Source Room air - Labs Labs: Laboratory Tests 08/11/22 08/11/22 08/11/22 20:05 20:08 20:08 WBC 10.9 H RBC 4.76 Hgb 12.7 L Hct 41.5 L MCV 87.2 MCH 26.7 L MCHC 30.6 L RDW 18.4 H Plt Count 308 MPV 11.6 H Neut # (Auto) 9.3 H Lymph # (Auto) 0.8 L [place] # (Auto) 0.5 Eos # (Auto) 0.2 Baso # (Auto) 0.1 Absolute Nucleated RBC 0.00 Nucleated RBC % 0.0 Sodium 138 Potassium 4.5 Chloride 107 Carbon Dioxide 24 Anion Gap 7.0 BUN 29 H Creatinine 1.7 H Estimated GFR (MDRD) 44 L Glucose 107 H Lactic Acid Calcium 9.0 Total Bilirubin 0.3 AST 12 ALT 20 Alkaline Phosphatase 68 Total Protein 7.5 Albumin 3.6 Globulin 3.9 Albumin/Globulin Ratio 0.9 L Lipase 68 H Nasal Adenovirus (PCR) NOT DETECTED Nasal B. parapertussis DNA (PCR) NOT DETECTED Nasal Coronavir 229E PCR NOT DETECTED Nasal Coronavir HKU1 PCR NOT DETECTED Nasal Coronavir NL63 PCR NOT DETECTED Nasal Coronavir OC43 PCR NOT DETECTED Nasal Enterovir/Rhinovir PCR NOT DETECTED Nasal Influenza A H3 PCR DETECTED A Nasal Influenza B PCR NOT DETECTED Nasal Parainfluen 1 PCR NOT DETECTED Nasal Parainfluen 2 PCR NOT DETECTED Nasal Parainfluen 3 PCR NOT DETECTED Nasal Parainfluen 4 PCR NOT DETECTED Nasal RSV (PCR) NOT DETECTED Nasal B.pertussis DNA PCR NOT DETECTED Nasal C.pneumoniae (PCR) NOT DETECTED Tito Human Metapneumo PCR NOT DETECTED Nasal M.pneumoniae (PCR) NOT DETECTED Nasal SARS-CoV-2 (PCR) DETECTED A 08/11/22 20:08 WBC RBC Hgb Hct MCV MCH MCHC RDW Plt Count MPV Neut # (Auto) Lymph # (Auto) [place] # (Auto) Eos # (Auto) Baso # (Auto) Absolute Nucleated RBC Nucleated RBC % Sodium Potassium Chloride Carbon Dioxide Anion Gap BUN Creatinine Estimated GFR (MDRD) Glucose Lactic Acid 0.8 Calcium Total Bilirubin AST ALT Alkaline Phosphatase Total Protein Albumin Globulin Albumin/Globulin Ratio Lipase Nasal Adenovirus (PCR) Nasal B. parapertussis DNA (PCR) Nasal Coronavir 229E PCR Nasal Coronavir HKU1 PCR Nasal Coronavir NL63 PCR Nasal Coronavir OC43 PCR Nasal Enterovir/Rhinovir PCR Nasal Influenza A H3 PCR Nasal Influenza B PCR Nasal Parainfluen 1 PCR Nasal Parainfluen 2 PCR Nasal Parainfluen 3 PCR Nasal Parainfluen 4 PCR Nasal RSV (PCR) Nasal B.pertussis DNA PCR Nasal C.pneumoniae (PCR) Tito Human Metapneumo PCR Nasal M.pneumoniae (PCR) Nasal SARS-CoV-2 (PCR) PD Medical Decision Making - ED course Complexity details: reviewed old records, reviewed results, re-evaluated patient, considered differential, d/w patient ED course: Minimally elevated WBC (10.9), normal lactate. Nasal respiratory PCR panel positive for COVID-19 as well as influenza A. Results d/w patient. He is given Paxlovid kit as well as tamiflu (first dose in ED, rx for same provided). Departure - Departure Disposition: 01 Home, Self Care Clinical Impression: Influenza A, COVID-19 Condition: Good Instructions: ED Flu, Medication: Tamiflu (Oseltamivir) Prescriptions: Oseltamivir [Tamiflu] 75 mg PO BID #9 cap Comments: The results of your blood tests tonight are reassuring. As we discussed, your white blood cell count is very mildly elevated, which is typical for infectious process such as the viruses that you have at this time. Your kidney tests (BUN and creatinine) were both mildly elevated; Looking at your many previous results regarding these 2 kidney tests on our records, they have almost always been normal. The most likely explanation for the abnormality tonight is dehydration. You were given a liter of IV fluid to help rehydrate. As we discussed, you tested positive tonight for influenza A as well as COVID- 19. You are given an antiviral medication to help fight off the influenza infection, and you were provided with a kit that has 2 other antivirals which help fight off COVID. I am providing you with a prescription for a 5-day course of the antiinfluenza medication. The other antivirals that are in the kit for the COVID infection do not need more medication than what is indicated. Please refer to the instructions in this kit regarding how to take the medication. Continue with the antibiotic that you are currently on (doxycycline). Google "CDC isolation" and then click on the link to "Isolation and Precautions for People with COVID-19 - CDC". This will have useful information for you as well as household contacts. There is a calculator on the page that will determine when you can end isolation. Discharge Date/Time: 08/11/22 23:06
--- OUTSIDE RECORDS SUMMARY | 2022-08-11 20:05 | EXTERNAL MEDICAL SUMMARY RPT | Continuity of Care Document ---
:1975 Author Organization [facility] Address [address] [place] [address] Phone Care Team Providers Name Role Phone Unavailable Unavailable Unavailable Danika García Unavailable Unavailable Allergies and Intolerances date description facility type (no date) gabapentin [facility] (unknown) (no date) morphine [facility] (unknown) Encounters No information. Functional Status No information. Immunizations No information. Medications date description facility 2022-07-30 00:00 Oxycodone-Acetaminophen [facility] 2022-07-30 00:00 Phenazopyridine [facility] 2022-08-06 00:00 Doxycycline Hyclate [facility] 2022-07-11 00:00 Lidocaine [facility] 2022-07-24 00:00 Sulfamethoxazole-Trimethoprim [facility] 2022-07-30 00:00 Sulfamethoxazole-Trimethoprim [facility] 2022-07-30 00:00 Ketorolac [facility] Problems date description facility 2022-07-11 00:00 Anterior chest wall pain [facility] 2022-07-13 00:00 Strain of neck muscle [facility] 2022-07-13 00:00 Strain of thoracic region [facility] 2022-07-24 00:00 Acute urinary tract infection [facility] 2022-07-30 00:[facility]:00 Constipation [facility] 2022-08-06 00:00 Pyelonephritis [facility] Procedures date description facility 2022-07-12 00:00 Anaerobic Culture [facility] 2022-07-13 00:00 Anaerobic Culture [facility] 2022-07-24 00:00 Anaerobic Culture [facility] 2022-07-30 00:00 Anaerobic Culture [facility] 2022-08-07 00:00 Anaerobic [facility] 2022-07-13 00:00 Computed tomography of head or brain wi [facility] contrast 2022-07-12 00:00 Gram Stain [facility] 2022-07-13 00:00 Gram Stain [facility] 2022-07-24 00:[address] [facility] 2022-07-30 00:[address] [facility] 2022-08-07 00:[address] [facility] 2022-07-11 00:00 [facility]:00 CT abdomen pelvis w [facility] 2022-07-13 00:00 Computed tomography of cervical spine w [facility] contrast 2022-07-13 00:00 [facility]:00 CT lumbar spine [facility] Results/Labs test date author facility value unit interpret ation Result panel 1 (unknown) (no date) ([facility] Result panel 2 (unknown) (no date) (unknown[facility] Result panel 3 (unknown) (no date) (unknown[facility] Result panel 4 (unknown) (no date) (unknown[facility] Result panel 5 (unknown) (no date) (unknown[facility] Result panel 6 (unknown) (no date) (unknown[facility] Result panel 7 (unknown) (no date) (unknown[facility] Result panel 8 (unknown) (no date) (unknown[facility] Result panel 9 (unknown) (no date) (unknown[facility] Result panel 10 (unknown) (no date) (unknown[facility] Result panel 11 (unknown) (no date) (unknown[facility] Result panel 12 (unknown) (no date) (unknown[facility] Result panel 13 (unknown) (no date) (unknown[facility] Result panel 14 (unknown) (no date) (unknown[facility] Result panel 15 (unknown) (no date) (unknown[facility] Result panel 16 (unknown) (no date) (unknown[facility]) Result panel 17 (unknown) (no date) (unknown[facility] Result panel 18 (unknown) (no date) (unknown[facility]) Result panel 19 (unknown) (no date) (unknown[facility] Result panel 20 (unknown) (no date) (unknown[facility] Result panel 21 (unknown) (no date) (unknown[facility] Result panel 22 (unknown) (no date) (unknown[facility] Result panel 23 (unknown) (no date) (unknown[facility] Result panel 24 (unknown) (no date) (unknown[facility] Result panel 25 (unknown) (no date) (unknown[facility] Result panel 26 (unknown) (no date) (unknown[facility] Result panel 27 (unknown) (no date) (unknown[facility] Result panel 28 (unknown) (no date) (unknown[facility] Result panel 29 (unknown) (no date) (unknown[facility]) Result panel 30 (unknown) (no date) (unknown[facility] Result panel 31 (unknown) (no date) (unknown[facility]) Result panel 32 (unknown) (no date) (unknown[facility] Result panel 33 (unknown) (no date) (unknown[facility]) Result panel 34 (unknown) (no date) (unknown) [facility] Result panel 35 (unknown) (no date) (unknown[facility] Result panel 36 (unknown) (no date) (unknown[facility] Result panel 37 (unknown) (no date) (unknown[facility] Result panel 38 (unknown) (no date) (unknown[facility] Result panel 39 (unknown) (no date) (unknown[facility]) Result panel 40 (unknown) (no date) (unknown[facility] Result panel 41 (unknown) (no date) (unknown[facility] Result panel 42 (unknown) (no date) (unknown[facility] Result panel 43 (unknown) (no date) (unknown[facility] Result panel 44 (unknown) (no date) (unknown[facility]) Result panel 45 (unknown) (no date) (unknown[facility] Result panel 46 (unknown) (no date) (unknown[facility] Result panel 47 (unknown) (no date) (unknown[facility]) Result panel 48 (unknown) (no date) (unknown[facility] Result panel 49 (unknown) (no date) (unknown[facility] Result panel 50 (unknown) (no date) (unknown[facility] Result panel 51 (unknown) (no date) (unknown) [facility] Result panel 52 (unknown) (no date) (unknown) [facility] Result panel 53 (unknown) (no date) (unknown) [facility] Result panel 54 (unknown) (no date) (unknown) [facility]) Result panel 55 (unknown) (no date) (unknown) [facility] Result panel 56 (unknown) (no date) (unknown) [facility]) Result panel 57 (unknown) (no date) (unknown) [facility] Result panel 58 (unknown) (no date) (unknown) [facility]) Result panel 59 (unknown) (no date) (unknown) [facility] Result panel 60 (unknown) (no date) (unknown) [facility] Result panel 61 (unknown) (no date) (unknown) [facility] Result panel 62 (unknown) (no date) (unknown) [facility]) Result panel 63 (unknown) (no date) (unknown[facility] Result panel 64 (unknown) (no date) (unknown) [facility]) Result panel 65 (unknown) (no date) (unknown) [facility] Result panel 66 (unknown) (no date) (unknown) [facility]) Result panel 67 (unknown) (no date) (unknown) [facility]) Result panel 68 (unknown) (no date) (unknown) [facility] Result panel 69 (unknown) (no date) (unknown[facility]) Result panel 70 (unknown) (no date) (unknown) [facility]) Result panel 71 (unknown) (no date) (unknown) [facility]) Result panel 72 (unknown) (no date) (unknown) [facility]) Result panel 73 (unknown) (no date) (unknown) [facility]) Result panel 74 (unknown) (no date) (unknown) [facility]) Result panel 75 (unknown) (no date) (unknown[facility]) Result panel 76 (unknown) (no date) (unknown[facility] Result panel 77 (unknown) (no date) (unknown[facility]) Result panel 78 (unknown) (no date) (unknown[facility] Result panel 79 (unknown) (no date) (unknown[facility]) Result panel 80 (unknown) (no date) (unknown[facility] Result panel 81 (unknown) (no date) (unknown[facility] Result panel 82 (unknown) (no date) (unknown[facility]) Result panel 83 (unknown) (no date) (unknown[facility] Result panel 84 (unknown) (no date) (unknown[facility]) Result panel 85 (unknown) (no date) (unknown[facility] Result panel 86 (unknown) (no date) (unknown[facility] Result panel 87 (unknown) (no date) (unknown) [facility]) Result panel 88 (unknown) (no date) (unknown[facility]) Result panel 89 (unknown) (no date) (unknown[facility]) Result panel 90 (unknown) (no date) (unknown[facility]) Result panel 91 (unknown) (no date) (unknown[facility]) Result panel 92 (unknown) (no date) (unknown) [facility] Result panel 93 (unknown) (no date) (unknown) [facility]) Result panel 94 (unknown) (no date) (unknown[facility] Result panel 95 (unknown) (no date) (unknown[facility]) Result panel 96 (unknown) (no date) (unknown[facility]) Result panel 97 (unknown) (no date) (unknown[facility]) Result panel 98 (unknown) (no date) (unknown) [facility]) Result panel 99 (unknown) (no date) (unknown[facility]) Result panel 100 (unknown) (no date) (unknown[facility] Result panel 101 (unknown) (no date) (unknown[facility]) Result panel 102 (unknown) (no date) (unknown[facility] Result panel 103 (unknown) (no date) (unknown[facility]) Result panel 104 (unknown) (no date) (unknown[facility] Result panel 105 (unknown) (no date) (unknown[facility]) Result panel 106 (unknown) (no date) (unknown[facility]) Result panel 107 (unknown) (no date) (unknown[facility]) Result panel 108 (unknown) (no date) (unknown[facility]) Result panel 109 (unknown) (no date) (unknown[facility]) Result panel 110 (unknown) (no date) (unknown[facility]) Result panel 111 (unknown) (no date) (unknown) [facility]) Result panel 112 (unknown) (no date) (unknown) [facility]) Result panel 113 (unknown) (no date) (unknown[facility] Result panel 114 (unknown) (no date) (unknown) [facility]) Result panel 115 (unknown) (no date) (unknown[facility]) Result panel 116 (unknown) (no date) (unknown[facility]) Result panel 117 (unknown) (no date) (unknown[facility]) Result panel 118 (unknown) (no date) (unknown[facility] Result panel 119 (unknown) (no date) (unknown[facility]) Result panel 120 (unknown) (no date) (unknown[facility]) Result panel 121 (unknown) (no date) (unknown[facility]) Result panel 122 (unknown) (no date) (unknown[facility]) Result panel 123 (unknown) (no date) (unknown[facility] Result panel 124 (unknown) (no date) (unknown[facility]) Result panel 125 (unknown) (no date) (unknown[facility]) Result panel 126 (unknown) (no date) (unknown[facility]) Result panel 127 (unknown) (no date) (unknown[facility]) Result panel 128 (unknown) (no date) (unknown[facility]) Result panel 129 (unknown) (no date) (unknown[facility]) Result panel 130 (unknown) (no date) (unknown[facility]) Result panel 131 (unknown) (no date) (unknown[facility]) Result panel 132 (unknown) (no date) (unknown[facility]) Result panel 133 (unknown) (no date) (unknown[facility]) Result panel 134 (unknown) (no date) (unknown[facility]) Result panel 135 (unknown) (no date) (unknown[facility]) Result panel 136 (unknown) (no date) (unknown) [facility]) Result panel 137 (unknown) (no date) (unknown) [facility]) Result panel 138 (unknown) (no date) (unknown) [facility]) Result panel 139 (unknown) (no date) (unknown) [facility]) Result panel 140 (unknown) (no date) (unknown) [facility]) Result panel 141 (unknown) (no date) (unknown) [facility]) Result panel 142 (unknown) (no date) (unknown) [facility]) Result panel 143 (unknown) (no date) (unknown) [facility]) Result panel 144 (unknown) (no date) (unknown) [facility]) Result panel 145 (unknown) (no date) (unknown) [facility] Result panel 146 (unknown) (no date) (unknown) [facility]) Result panel 147 (unknown) (no date) (unknown) [facility] Result panel 148 (unknown) (no date) (unknown) [facility]) Result panel 149 (unknown) (no date) (unknown) [facility]) Result panel 150 (unknown) (no date) (unknown) [facility]) Result panel 151 (unknown) (no date) (unknown) [facility]) Result panel 152 (unknown) (no date) (unknown) [facility]) Result panel 153 (unknown) (no date) (unknown) [facility]) Result panel 154 (unknown) (no date) (unknown) [facility]) Result panel 155 (unknown) (no date) (unknown) [facility]) Result panel 156 (unknown) (no date) (unknown) [facility]) Result panel 157 (unknown) (no date) (unknown) [facility]) Result panel 158 (unknown) (no date) (unknown) [facility] Result panel 159 (unknown) (no date) (unknown) [facility]) Result panel 160 (unknown) (no date) (unknown) [facility]) Result panel 161 (unknown) (no date) (unknown) [facility]) Result panel 162 (unknown) (no date) (unknown) [facility] Result panel 163 (unknown) (no date) (unknown) [facility] Result panel 164 (unknown) (no date) (unknown) [facility]) Result panel 165 (unknown) (no date) (unknown) [facility] Result panel 166 (unknown) (no date) (unknown) [facility]) Result panel 167 (unknown) (no date) (unknown) [facility] Result panel 168 (unknown) (no date) (unknown) [facility] Result panel 169 (unknown) (no date) (unknown) [facility] Result panel 170 (unknown) (no date) (unknown) [facility]) Result panel 171 (unknown) (no date) (unknown) [facility] Result panel 172 (unknown) (no date) (unknown) [facility] Result panel 173 (unknown) (no date) (unknown) [facility]) Result panel 174 (unknown) (no date) (unknown) [facility] Result panel 175 (unknown) (no date) (unknown) [facility] Result panel 176 (unknown) (no date) (unknown) [facility] Result panel 177 (unknown) (no date) (unknown) [facility]) Result panel 178 (unknown) (no date) (unknown) [facility]) Result panel 179 (unknown) (no date) (unknown) [facility] Result panel 180 (unknown) (no date) (unknown) [facility]) Result panel 181 (unknown) (no date) (unknown) [facility] Result panel 182 (unknown) (no date) (unknown) [facility] Result panel 183 (unknown) (no date) (unknown) [facility] Result panel 184 (unknown) (no date) (unknown) [facility]) Result panel 185 (unknown) (no date) (unknown) [facility] Result panel 186 (unknown) (no date) (unknown) [facility]) Result panel 187 (unknown) (no date) (unknown) [facility] Result panel 188 (unknown) (no date) (unknown) [facility] Result panel 189 (unknown) (no date) (unknown) [facility] Result panel 190 (unknown) (no date) (unknown) [facility] Result panel 191 (unknown) (no date) (unknown) [facility]) Result panel 192 (unknown) (no date) (unknown) [facility] Result panel 193 (unknown) (no date) (unknown) [facility]) Result panel 194 (unknown) (no date) (unknown) [facility] Result panel 195 (unknown) (no date) (unknown) [facility] Result panel 196 (unknown) (no date) (unknown) [facility]) Result panel 197 (unknown) (no date) (unknown) [facility] Result panel 198 (unknown) (no date) (unknown) [facility] Result panel 199 (unknown) (no date) (unknown) [facility] Result panel 200 (unknown) (no date) (unknown) [facility] Result panel 201 (unknown) (no date) (unknown) [facility]) Result panel 202 (unknown) (no date) (unknown) [facility] Result panel 203 (unknown) (no date) (unknown) [facility] Result panel 204 (unknown) (no date) (unknown) [facility] Result panel 205 (unknown) (no date) (unknown) [facility] Result panel 206 (unknown) (no date) (unknown) [facility] Result panel 207 (unknown) (no date) (unknown) [facility] Result panel 208 (unknown) (no date) (unknown) [facility] Result panel 209 (unknown) (no date) (unknown) [facility]) Result panel 210 (unknown) (no date) (unknown) [facility] Result panel 211 (unknown) (no date) (unknown) [facility] [facility]) Result panel 212 (unknown) (no date) (unknown) [facility]) Result panel 213 (unknown) (no date) (unknown) [facility] Result panel 214 (unknown) (no date) (unknown) [facility]) Result panel 215 (unknown) (no date) (unknown) [facility] Result panel 216 (unknown) (no date) (unknown) [facility] Result panel 217 (unknown) (no date) (unknown) [facility] Result panel 218 (unknown) (no date) (unknown) [facility] Result panel 219 (unknown) (no date) (unknown[facility] Result panel 220 (unknown) (no date) (unknown) [facility]) Result panel 221 (unknown) (no date) (unknown) [facility] Result panel 222 (unknown) (no date) (unknown) [facility]) Result panel 223 (unknown) (no date) (unknown) [facility]) Result panel 224 (unknown) (no date) (unknown) [facility]) Result panel 225 (unknown) (no date) (unknown) [facility] Result panel 226 (unknown) (no date) (unknown) [facility]) Result panel 227 (unknown) (no date) (unknown) [facility] Result panel 228 (unknown) (no date) (unknown) [facility] Result panel 229 (unknown) (no date) (unknown) [facility] Result panel 230 (unknown) (no date) (unknown) [facility] Result panel 231 (unknown) (no date) (unknown) [facility] Result panel 232 (unknown) (no date) (unknown[facility]) Result panel 233 (unknown) (no date) (unknown) [facility] Result panel 234 (unknown) (no date) (unknown) [facility] Result panel 235 (unknown) (no date) (unknown) [facility] Result panel 236 (unknown) (no date) (unknown) [facility] Result panel 237 (unknown) (no date) (unknown) [facility] Result panel 238 (unknown) (no date) (unknown) [facility] Result panel 239 (unknown) (no date) (unknown) [facility] Result panel 240 (unknown) (no date) (unknown) [facility] Result panel 241 (unknown) (no date) (unknown) [facility] Result panel 242 (unknown) (no date) (unknown[facility] Result panel 243 (unknown) (no date) (unknown) [facility] Result panel 244 (unknown) (no date) (unknown) [facility] Result panel 245 (unknown) (no date) (unknown) [facility] Result panel 246 (unknown) (no date) (unknown) [facility] Result panel 247 (unknown) (no date) (unknown[facility]) Result panel 248 (unknown) (no date) (unknown) [facility]) Result panel 249 (unknown) (no date) (unknown) [facility]) Result panel 250 (unknown) (no date) (unknown) [facility]) Result panel 251 (unknown) (no date) (unknown[facility]) Result panel 252 (unknown) (no date) (unknown[facility]) Result panel 253 (unknown) (no date) (unknown) [facility] Result panel 254 (unknown) (no date) (unknown) [facility] Result panel 255 (unknown) (no date) (unknown[facility]) Result panel 256 (unknown) (no date) (unknown) [facility]) Result panel 257 (unknown) (no date) (unknown) [facility]) Result panel 258 (unknown) (no date) (unknown[facility]) Result panel 259 (unknown) (no date) (unknown) [facility]) Result panel 260 (unknown) (no date) (unknown[facility]) Result panel 261 (unknown) (no date) (unknown) [facility] Result panel 262 (unknown) (no date) (unknown) [facility]) Result panel 263 (unknown) (no date) (unknown) [facility] Result panel 264 (unknown) (no date) (unknown) [facility]) Result panel 265 (unknown) (no date) (unknown[facility] Result panel 266 (unknown) (no date) (unknown) [facility]) Result panel 267 (unknown) (no date) (unknown) [facility]) Result panel 268 (unknown) (no date) (unknown) [facility]) Result panel 269 (unknown) (no date) (unknown) [facility]) Result panel 270 (unknown) (no date) (unknown[facility] Result panel 271 (unknown) (no date) (unknown) [facility]) Result panel 272 (unknown) (no date) (unknown) [facility]) Result panel 273 (unknown) (no date) (unknown) [facility]) Result panel 274 (unknown) (no date) (unknown) [facility]) Result panel 275 (unknown) (no date) (unknown) [facility]) Result panel 276 (unknown) (no date) (unknown) [facility]) Result panel 277 (unknown) (no date) (unknown) [facility]) Result panel 278 (unknown) (no date) (unknown) [facility]) Result panel 279 (unknown) (no date) (unknown[facility]) Result panel 280 (unknown) (no date) (unknown) [facility]) Result panel 281 (unknown) (no date) (unknown) [facility]) Result panel 282 (unknown) (no date) (unknown) [facility]) Result panel 283 (unknown) (no date) (unknown) [facility]) Result panel 284 (unknown) (no date) (unknown) [facility]) Result panel 285 (unknown) (no date) (unknown) [facility]) Result panel 286 (unknown) (no date) (unknown) [facility]) Result panel 287 (unknown) (no date) (unknown[facility]) Result panel 288 (unknown) (no date) (unknown) [facility] Result panel 289 (unknown) (no date) (unknown) [facility]) Result panel 290 (unknown) (no date) (unknown) [facility]) Result panel 291 (unknown) (no date) (unknown) [facility]) Result panel 292 (unknown) (no date) (unknown[facility]) Result panel 293 (unknown) (no date) (unknown) [facility]) Result panel 294 (unknown) (no date) (unknown[facility]) Result panel 295 (unknown) (no date) (unknown[facility]) Result panel 296 (unknown) (no date) (unknown) [facility]) Result panel 297 (unknown) (no date) (unknown) [facility]) Result panel 298 (unknown) (no date) (unknown) [facility]) Result panel 299 (unknown) (no date) (unknown[facility]) Result panel 300 (unknown) (no date) (unknown) [facility]) Result panel 301 (unknown) (no date) (unknown) [facility]) Result panel 302 (unknown) (no date) (unknown) [facility]) Result panel 303 (unknown) (no date) (unknown) [facility]) Result panel 304 (unknown) (no date) (unknown) [facility]) Result panel 305 (unknown) (no date) (unknown[facility] Result panel 306 (unknown) (no date) (unknown) [facility]) Result panel 307 (unknown) (no date) (unknown) [facility]) Result panel 308 (unknown) (no date) (unknown) [facility]) Result panel 309 (unknown) (no date) (unknown) [facility]) Result panel 310 (unknown) (no date) (unknown[facility] Result panel 311 (unknown) (no date) (unknown) [facility] Result panel 312 (unknown) (no date) (unknown[facility]) Result panel 313 (unknown) (no date) (unknown) [facility]) Result panel 314 (unknown) (no date) (unknown) [facility]) Result panel 315 (unknown) (no date) (unknown) [facility]) Result panel 316 (unknown) (no date) (unknown[facility]) Result panel 317 (unknown) (no date) (unknown) [facility]) Result panel 318 (unknown) (no date) (unknown) [facility]) Result panel 319 (unknown) (no date) (unknown) [facility]) Result panel 320 (unknown) (no date) (unknown) [facility]) Result panel 321 (unknown) (no date) (unknown) [facility]) Result panel 322 (unknown) (no date) (unknown) [facility]) Result panel 323 (unknown) (no date) (unknown[facility]) Result panel 324 (unknown) (no date) (unknown) [facility]) Result panel 325 (unknown) (no date) (unknown) [facility]) Result panel 326 (unknown) (no date) (unknown) [facility]) Result panel 327 (unknown) (no date) (unknown) [facility]) Result panel 328 (unknown) (no date) (unknown) [facility]) Result panel 329 (unknown) (no date) (unknown[facility]) Result panel 330 (unknown) (no date) (unknown[facility]) Result panel 331 (unknown) (no date) (unknown) [facility]) Result panel 332 (unknown) (no date) (unknown) [facility]) Result panel 333 (unknown) (no date) (unknown) [facility]) Result panel 334 (unknown) (no date) (unknown) [facility]) Result panel 335 (unknown) (no date) (unknown[facility]) Result panel 336 (unknown) (no date) (unknown) [facility]) Result panel 337 (unknown) (no date) (unknown) [facility]) Result panel 338 (unknown) (no date) (unknown) [facility]) Result panel 339 (unknown) (no date) (unknown[facility]) Result panel 340 (unknown) (no date) (unknown) [facility]) Result panel 341 (unknown) (no date) (unknown[facility]) Result panel 342 (unknown) (no date) (unknown[facility]) Result panel 343 (unknown) (no date) (unknown) [facility]) Result panel 344 (unknown) (no date) (unknown) [facility]) Result panel 345 (unknown) (no date) (unknown) [facility]) Result panel 346 (unknown) (no date) (unknown) [facility]) Result panel 347 (unknown) (no date) (unknown) [facility]) Result panel 348 (unknown) (no date) (unknown) [facility]) Result panel 349 (unknown) (no date) (unknown[facility]) Result panel 350 (unknown) (no date) (unknown) [facility]) Result panel 351 (unknown) (no date) (unknown[facility] Result panel 352 (unknown) (no date) (unknown[facility]) Result panel 353 (unknown) (no date) (unknown) [facility]) Result panel 354 (unknown) (no date) (unknown) [facility]) Result panel 355 (unknown) (no date) (unknown) [facility]) Result panel 356 (unknown) (no date) (unknown) [facility]) Result panel 357 (unknown) (no date) (unknown) [facility]) Result panel 358 (unknown) (no date) (unknown[facility]) Result panel 359 (unknown) (no date) (unknown) [facility]) Result panel 360 (unknown) (no date) (unknown[facility]) Result panel 361 (unknown) (no date) (unknown) [facility]) Result panel 362 (unknown) (no date) (unknown[facility]) Result panel 363 (unknown) (no date) (unknown) [facility]) Result panel 364 (unknown) (no date) (unknown) [facility]) Result panel 365 (unknown) (no date) (unknown) [facility]) Result panel 366 (unknown) (no date) (unknown) [facility]) Result panel 367 (unknown) (no date) (unknown[facility]) Result panel 368 (unknown) (no date) (unknown) [facility]) Result panel 369 (unknown) (no date) (unknown) [facility]) Result panel 370 (unknown) (no date) (unknown) [facility]) Result panel 371 (unknown) (no date) (unknown) [facility]) Result panel 372 (unknown) (no date) (unknown) [facility]) Result panel 373 (unknown) (no date) (unknown) [facility]) Result panel 374 (unknown) (no date) (unknown) [facility]) Result panel 375 (unknown) (no date) (unknown) [facility]) Result panel 376 (unknown) (no date) (unknown) [facility]) Result panel 377 (unknown) (no date) (unknown) [facility]) Result panel 378 (unknown) (no date) (unknown[facility]) Result panel 379 (unknown) (no date) (unknown) [facility]) Result panel 380 (unknown) (no date) (unknown[facility]) Result panel 381 (unknown) (no date) (unknown) [facility]) Result panel 382 (unknown) (no date) (unknown[facility]) Result panel 383 (unknown) (no date) (unknown[facility]) Result panel 384 (unknown) (no date) (unknown) [facility]) Result panel 385 (unknown) (no date) (unknown[facility]) Result panel 386 (unknown) (no date) (unknown) [facility]) Result panel 387 (unknown) (no date) (unknown) [facility]) Result panel 388 (unknown) (no date) (unknown) [facility]) Result panel 389 (unknown) (no date) (unknown) [facility]) Result panel 390 (unknown) (no date) (unknown) [facility] Result panel 391 (unknown) (no date) (unknown) [facility] Result panel 392 (unknown) (no date) (unknown[facility]) Result panel 393 (unknown) (no date) (unknown) [facility]) Result panel 394 (unknown) (no date) (unknown) [facility]) Result panel 395 (unknown) (no date) (unknown) [facility]) Result panel 396 (unknown) (no date) (unknown) [facility]) Result panel 397 (unknown) (no date) (unknown) [facility] Result panel 398 (unknown) (no date) (unknown) [facility]) Result panel 399 (unknown) (no date) (unknown) [facility]) Result panel 400 (unknown) (no date) (unknown) [facility]) Result panel 401 (unknown) (no date) (unknown) [facility]) Result panel 402 (unknown) (no date) (unknown) [facility]) Result panel 403 (unknown) (no date) (unknown) [facility]) Result panel 404 (unknown) (no date) (unknown) [facility]) Result panel 405 (unknown) (no date) (unknown[facility]) Result panel 406 (unknown) (no date) (unknown[facility]) Result panel 407 (unknown) (no date) (unknown) [facility]) Result panel 408 (unknown) (no date) (unknown) [facility] Result panel 409 (unknown) (no date) (unknown) [facility]) Result panel 410 (unknown) (no date) (unknown) [facility]) Result panel 411 (unknown) (no date) (unknown) [facility]) Result panel 412 (unknown) (no date) (unknown) [facility]) Result panel 413 (unknown) (no date) (unknown) [facility]) Result panel 414 (unknown) (no date) (unknown) [facility]) Result panel 415 (unknown) (no date) (unknown) [facility]) Result panel 416 (unknown) (no date) (unknown) [facility]) Result panel 417 (unknown) (no date) (unknown[facility]) Result panel 418 (unknown) (no date) (unknown) [facility] Result panel 419 (unknown) (no date) (unknown) [facility]) Result panel 420 (unknown) (no date) (unknown) [facility]) Result panel 421 (unknown) (no date) (unknown) [facility]) Result panel 422 (unknown) (no date) (unknown) [facility]) Result panel 423 (unknown) (no date) (unknown) [facility]) Result panel 424 (unknown) (no date) (unknown) [facility]) Result panel 425 (unknown) (no date) (unknown) [facility]) Result panel 426 (unknown) (no date) (unknown) [facility]) Result panel 427 (unknown) (no date) (unknown) [facility]) Result panel 428 (unknown) (no date) (unknown[facility]) Result panel 429 (unknown) (no date) (unknown) [facility]) Result panel 430 (unknown) (no date) (unknown) [facility]) Result panel 431 (unknown) (no date) (unknown) [facility]) Result panel 432 (unknown) (no date) (unknown) [facility]) Result panel 433 (unknown) (no date) (unknown) [facility]) Result panel 434 (unknown) (no date) (unknown[facility]) Result panel 435 (unknown) (no date) (unknown) [facility]) Result panel 436 (unknown) (no date) (unknown) [facility]) Result panel 437 (unknown) (no date) (unknown) [facility]) Result panel 438 (unknown) (no date) (unknown) [facility]) Result panel 439 (unknown) (no date) (unknown) [facility]) Result panel 440 (unknown) (no date) (unknown) [facility]) Result panel 441 (unknown) (no date) (unknown) [facility]) Result panel 442 (unknown) (no date) (unknown) [facility]) Result panel 443 (unknown) (no date) (unknown) [facility]) Result panel 444 (unknown) (no date) (unknown) [facility]) Result panel 445 (unknown) (no date) (unknown) [facility]) Result panel 446 (unknown) (no date) (unknown) [facility]) Result panel 447 (unknown) (no date) (unknown) [facility]) Result panel 448 (unknown) (no date) (unknown) [facility] Result panel 449 (unknown) (no date) (unknown) [facility]) Result panel 450 (unknown) (no date) (unknown) [facility] Result panel 451 (unknown) (no date) (unknown) [facility] Result panel 452 (unknown) (no date) (unknown) [facility] Result panel 453 (unknown) (no date) (unknown) [facility]) Result panel 454 (unknown) (no date) (unknown) [facility] Result panel 455 (unknown) (no date) (unknown) [facility] Result panel 456 (unknown) (no date) (unknown) [facility] Result panel 457 (unknown) (no date) (unknown) [facility] Result panel 458 (unknown) (no date) (unknown) [facility] Result panel 459 (unknown) (no date) (unknown[facility] Result panel 460 (unknown) (no date) (unknown) [facility] Result panel 461 (unknown) (no date) (unknown) [facility] Result panel 462 (unknown) (no date) (unknown) [facility] Result panel 463 (unknown) (no date) (unknown) [facility] Result panel 464 (unknown) (no date) (unknown[facility]) Result panel 465 (unknown) (no date) (unknown) [facility] Result panel 466 (unknown) (no date) (unknown[facility]) Result panel 467 (unknown) (no date) (unknown[facility] Result panel 468 (unknown) (no date) (unknown) [facility]) Result panel 469 (unknown) (no date) (unknown) [facility] Result panel 470 (unknown) (no date) (unknown[facility]) Result panel 471 (unknown) (no date) (unknown[facility] Result panel 472 (unknown) (no date) (unknown[facility]) Result panel 473 (unknown) (no date) (unknown[facility] Result panel 474 (unknown) (no date) (unknown) [facility] Result panel 475 (unknown) (no date) (unknown[facility]) Result panel 476 (unknown) (no date) (unknown[facility] Result panel 477 (unknown) (no date) (unknown[facility]) Result panel 478 (unknown) (no date) (unknown) [facility]) Result panel 479 (unknown) (no date) (unknown) [facility]) Result panel 480 (unknown) (no date) (unknown) [facility]) Result panel 481 (unknown) (no date) (unknown) [facility]) Result panel 482 (unknown) (no date) (unknown) [facility]) Result panel 483 (unknown) (no date) (unknown) [facility]) Result panel 484 (unknown) (no date) (unknown) [facility]) Result panel 485 (unknown) (no date) (unknown) [facility]) Result panel 486 (unknown) (no date) (unknown) [facility]) Result panel 487 (unknown) (no date) (unknown[facility]) Result panel 488 (unknown) (no date) (unknown[facility] Result panel 489 (unknown) (no date) (unknown[facility] Result panel 490 (unknown) (no date) (unknown[facility] Result panel 491 (unknown) (no date) (unknown) [facility]) Result panel 492 (unknown) (no date) (unknown) [facility] Result panel 493 (unknown) (no date) (unknown) [facility]) Result panel 494 (unknown) (no date) (unknown) [facility]) Result panel 495 (unknown) (no date) (unknown[facility] Result panel 496 (unknown) (no date) (unknown) [facility]) Result panel 497 (unknown) (no date) (unknown) [facility] Result panel 498 (unknown) (no date) (unknown) [facility]) Result panel 499 (unknown) (no date) (unknown) [facility]) Result panel 500 (unknown) (no date) (unknown) [facility]) Result panel 501 (unknown) (no date) (unknown[facility]) Result panel 502 (unknown) (no date) (unknown) [facility]) Result panel 503 (unknown) (no date) (unknown) [facility]) Result panel 504 (unknown) (no date) (unknown) [facility]) Result panel 505 (unknown) (no date) (unknown) [facility] Result panel 506 (unknown) (no date) (unknown) [facility]) Result panel 507 (unknown) (no date) (unknown) [facility]) Result panel 508 (unknown) (no date) (unknown) [facility]) Result panel 509 (unknown) (no date) (unknown) [facility]) Result panel 510 (unknown) (no date) (unknown) [facility]) Result panel 511 (unknown) (no date) (unknown) [facility]) Result panel 512 (unknown) (no date) (unknown) [facility]) Result panel 513 (unknown) (no date) (unknown) [facility]) Result panel 514 (unknown) (no date) (unknown) [facility]) Result panel 515 (unknown) (no date) (unknown) [facility]) Result panel 516 (unknown) (no date) (unknown) [facility]) Result panel 517 (unknown) (no date) (unknown) [facility]) Result panel 518 (unknown) (no date) (unknown) [facility]) Result panel 519 (unknown) (no date) (unknown) [facility]) Result panel 520 (unknown) (no date) (unknown) [facility]) Result panel 521 (unknown) (no date) (unknown) [facility]) Result panel 522 (unknown) (no date) (unknown) [facility]) Result panel 523 (unknown) (no date) (unknown) [facility]) Result panel 524 (unknown) (no date) (unknown) [facility]) Result panel 525 (unknown) (no date) (unknown) [facility]) Result panel 526 (unknown) (no date) (unknown) [facility]) Result panel 527 (unknown) (no date) (unknown[facility]) Result panel 528 (unknown) (no date) (unknown) [facility]) Result panel 529 (unknown) (no date) (unknown) [facility]) Result panel 530 (unknown) (no date) (unknown) [facility]) Result panel 531 (unknown) (no date) (unknown) [facility]) Result panel 532 (unknown) (no date) (unknown) [facility]) Result panel 533 (unknown) (no date) (unknown) [facility]) Result panel 534 (unknown) (no date) (unknown) [facility]) Result panel 535 (unknown) (no date) (unknown) [facility]) Result panel 536 (unknown) (no date) (unknown) [facility]) Result panel 537 (unknown) (no date) (unknown) [facility]) Result panel 538 (unknown) (no date) (unknown) [facility]) Result panel 539 (unknown) (no date) (unknown) [facility]) Result panel 540 (unknown) (no date) (unknown) [facility]) Result panel 541 (unknown) (no date) (unknown) [facility]) Result panel 542 (unknown) (no date) (unknown) [facility]) Result panel 543 (unknown) (no date) (unknown) [facility]) Result panel 544 (unknown) (no date) (unknown) [facility]) Result panel 545 (unknown) (no date) (unknown) [facility]) Result panel 546 (unknown) (no date) (unknown) [facility]) Result panel 547 (unknown) (no date) (unknown) [facility]) Result panel 548 (unknown) (no date) (unknown) [facility]) Result panel 549 (unknown) (no date) (unknown) [facility]) Result panel 550 (unknown) (no date) (unknown) [facility]) Result panel 551 (unknown) (no date) (unknown[facility]) Result panel 552 (unknown) (no date) (unknown) [facility] Result panel 553 (unknown) (no date) (unknown[facility]) Result panel 554 (unknown) (no date) (unknown[facility]) Result panel 555 (unknown) (no date) (unknown) [facility]) Result panel 556 (unknown) (no date) (unknown) [facility]) Result panel 557 (unknown) (no date) (unknown) [facility]) Result panel 558 (unknown) (no date) (unknown) [facility]) Result panel 559 (unknown) (no date) (unknown) [facility]) Result panel 560 (unknown) (no date) (unknown) [facility]) Result panel 561 (unknown) (no date) (unknown) [facility]) Result panel 562 (unknown) (no date) (unknown) [facility]) Result panel 563 (unknown) (no date) (unknown) [facility]) Result panel 564 (unknown) (no date) (unknown) [facility]) Result panel 565 (unknown) (no date) (unknown) [facility]) Result panel 566 (unknown) (no date) (unknown) [facility]) Result panel 567 (unknown) (no date) (unknown) [facility]) Result panel 568 (unknown) (no date) (unknown[facility]) Result panel 569 (unknown) (no date) (unknown) [facility]) Result panel 570 (unknown) (no date) (unknown) [facility]) Result panel 571 (unknown) (no date) (unknown) [facility]) Result panel 572 (unknown) (no date) (unknown) [facility]) Result panel 573 (unknown) (no date) (unknown) [facility]) Result panel 574 (unknown) (no date) (unknown) [facility]) Result panel 575 (unknown) (no date) (unknown) [facility]) Result panel 576 (unknown) (no date) (unknown) [facility]) Result panel 577 (unknown) (no date) (unknown) [facility]) Result panel 578 (unknown) (no date) (unknown) [facility]) Result panel 579 (unknown) (no date) (unknown) [facility]) Result panel 580 (unknown) (no date) (unknown) [facility]) Result panel 581 (unknown) (no date) (unknown) [facility]) Result panel 582 (unknown) (no date) (unknown) [facility]) Result panel 583 (unknown) (no date) (unknown) [facility]) Result panel 584 (unknown) (no date) (unknown) [facility]) Result panel 585 (unknown) (no date) (unknown) [facility]) Result panel 586 (unknown) (no date) (unknown) [facility]) Result panel 587 (unknown) (no date) (unknown) [facility]) Result panel 588 (unknown) (no date) (unknown) [facility]) Result panel 589 (unknown) (no date) (unknown) [facility]) Result panel 590 (unknown) (no date) (unknown) [facility]) Result panel 591 (unknown) (no date) (unknown) [facility]) Result panel 592 (unknown) (no date) (unknown) [facility]) Result panel 593 (unknown) (no date) (unknown) [facility]) Result panel 594 (unknown) (no date) (unknown) [facility]) Result panel 595 (unknown) (no date) (unknown) [facility]) Result panel 596 (unknown) (no date) (unknown) [facility]) Result panel 597 (unknown) (no date) (unknown) [facility]) Result panel 598 (unknown) (no date) (unknown) [facility]) Result panel 599 (unknown) (no date) (unknown) [facility]) Result panel 600 (unknown) (no date) (unknown) [facility]) Result panel 601 (unknown) (no date) (unknown) [facility]) Result panel 602 (unknown) (no date) (unknown) [facility]) Result panel 603 (unknown) (no date) (unknown) [facility]) Result panel 604 (unknown) (no date) (unknown) [facility]) Result panel 605 (unknown) (no date) (unknown) [facility]) Result panel 606 (unknown) (no date) (unknown) [facility]) Result panel 607 (unknown) (no date) (unknown) [facility]) Result panel 608 (unknown) (no date) (unknown) [facility]) Result panel 609 (unknown) (no date) (unknown) [facility]) Result panel 610 (unknown) (no date) (unknown) [facility]) Result panel 611 (unknown) (no date) (unknown) [facility]) Result panel 612 (unknown) (no date) (unknown) [facility]) Result panel 613 (unknown) (no date) (unknown) [facility]) Result panel 614 (unknown) (no date) (unknown) [facility]) Result panel 615 (unknown) (no date) (unknown) [facility]) Result panel 616 (unknown) (no date) (unknown) [facility]) Result panel 617 (unknown) (no date) (unknown) [facility]) Result panel 618 (unknown) (no date) (unknown) [facility]) Result panel 619 (unknown) (no date) (unknown) [facility]) Result panel 620 (unknown) (no date) (unknown) [facility]) Result panel 621 (unknown) (no date) (unknown) [facility]) Result panel 622 (unknown) (no date) (unknown) [facility]) Result panel 623 (unknown) (no date) (unknown) [facility]) Result panel 624 (unknown) (no date) (unknown) [facility]) Result panel 625 (unknown) (no date) (unknown) [facility]) Result panel 626 (unknown) (no date) (unknown) [facility]) Result panel 627 (unknown) (no date) (unknown) [facility]) Result panel 628 (unknown) (no date) (unknown) [facility]) Result panel 629 (unknown) (no date) (unknown) [facility]) Result panel 630 (unknown) (no date) (unknown) [facility]) Result panel 631 (unknown) (no date) (unknown) [facility]) Result panel 632 (unknown) (no date) (unknown) [facility]) Result panel 633 (unknown) (no date) (unknown) [facility]) Result panel 634 (unknown) (no date) (unknown) [facility]) Result panel 635 (unknown) (no date) (unknown) [facility]) Result panel 636 (unknown) (no date) (unknown) [facility]) Result panel 637 (unknown) (no date) (unknown) [facility]) Result panel 638 (unknown) (no date) (unknown) [facility]) Result panel 639 (unknown) (no date) (unknown) [facility]) Result panel 640 (unknown) (no date) (unknown) [facility]) Result panel 641 (unknown) (no date) (unknown) [facility]) Result panel 642 (unknown) (no date) (unknown) [facility]) Result panel 643 (unknown) (no date) (unknown) [facility]) Result panel 644 (unknown) (no date) (unknown) [facility]) Result panel 645 (unknown) (no date) (unknown) [facility]) Result panel 646 (unknown) (no date) (unknown) [facility]) Result panel 647 (unknown) (no date) (unknown) [facility]) Result panel 648 (unknown) (no date) (unknown) [facility]) Result panel 649 (unknown) (no date) (unknown) [facility]) Result panel 650 (unknown) (no date) (unknown) [facility]) Result panel 651 (unknown) (no date) (unknown) [facility]) Result panel 652 (unknown) (no date) (unknown) [facility]) Result panel 653 (unknown) (no date) (unknown) [facility]) Result panel 654 (unknown) (no date) (unknown) [facility]) Result panel 655 (unknown) (no date) (unknown) [facility]) Result panel 656 (unknown) (no date) (unknown) [facility]) Result panel 657 (unknown) (no date) (unknown) [facility]) Result panel 658 (unknown) (no date) (unknown) [facility]) Result panel 659 (unknown) (no date) (unknown) [facility]) Result panel 660 (unknown) (no date) (unknown) [facility]) Result panel 661 (unknown) (no date) (unknown) [facility]) Result panel 662 (unknown) (no date) (unknown) [facility]) Result panel 663 (unknown) (no date) (unknown) [facility]) Result panel 664 (unknown) (no date) (unknown) [facility]) Result panel 665 (unknown) (no date) (unknown) [facility]) Result panel 666 (unknown) (no date) (unknown) [facility]) Result panel 667 (unknown) (no date) (unknown) [facility]) Result panel 668 (unknown) (no date) (unknown) [facility]) Result panel 669 (unknown) (no date) (unknown) [facility]) Result panel 670 (unknown) (no date) (unknown) [facility]) Result panel 671 (unknown) (no date) (unknown) [facility]) Result panel 672 (unknown) (no date) (unknown) [facility]) Result panel 673 (unknown) (no date) (unknown) [facility]) Result panel 674 (unknown) (no date) (unknown) [facility]) Result panel 675 (unknown) (no date) (unknown) [facility]) Result panel 676 (unknown) (no date) (unknown) [facility]) Result panel 677 (unknown) (no date) (unknown) [facility]) Result panel 678 (unknown) (no date) (unknown) [facility]) Result panel 679 (unknown) (no date) (unknown) [facility]) Result panel 680 (unknown) (no date) (unknown) [facility]) Result panel 681 (unknown) (no date) (unknown) [facility]) Result panel 682 (unknown) (no date) (unknown) [facility]) Result panel 683 (unknown) (no date) (unknown) [facility]) Result panel 684 (unknown) (no date) (unknown) [facility]) Result panel 685 (unknown) (no date) (unknown) [facility]) Result panel 686 (unknown) (no date) (unknown) [facility] [facility] Result panel 687 (unknown) (no date) (unknown) [facility]) Result panel 688 (unknown) (no date) (unknown) [facility]) Result panel 689 (unknown) (no date) (unknown) [facility] Result panel 690 (unknown) (no date) (unknown) [facility]) Result panel 691 (unknown) (no date) (unknown) [facility]) Result panel 692 (unknown) (no date) (unknown) [facility]) Result panel 693 (unknown) (no date) (unknown) [facility]) Result panel 694 (unknown) (no date) (unknown) [facility]) Result panel 695 (unknown) (no date) (unknown) [facility]) Result panel 696 (unknown) (no date) (unknown) [facility]) Result panel 697 (unknown) (no date) (unknown) [facility]) Result panel 698 (unknown) (no date) (unknown) [facility]) Result panel 699 (unknown) (no date) (unknown) [facility]) Result panel 700 (unknown) (no date) (unknown) [facility]) Result panel 701 (unknown) (no date) (unknown) [facility]) Result panel 702 (unknown) (no date) (unknown) [facility]) Result panel 703 (unknown) (no date) (unknown) [facility]) Result panel 704 (unknown) (no date) (unknown) [facility]) Result panel 705 (unknown) (no date) (unknown) [facility]) Result panel 706 (unknown) (no date) (unknown) [facility]) Result panel 707 (unknown) (no date) (unknown) [facility]) Result panel 708 (unknown) (no date) (unknown) [facility]) Result panel 709 (unknown) (no date) (unknown) [facility] Result panel 710 (unknown) (no date) (unknown) [facility]) Result panel 711 (unknown) (no date) (unknown) [facility]) Result panel 712 (unknown) (no date) (unknown) [facility]) Result panel 713 (unknown) (no date) (unknown) [facility]) Result panel 714 (unknown) (no date) (unknown) [facility]) Result panel 715 (unknown) (no date) (unknown) [facility]) Result panel 716 (unknown) (no date) (unknown) [facility]) Result panel 717 (unknown) (no date) (unknown) [facility]) Result panel 718 (unknown) (no date) (unknown) [facility]) Result panel 719 (unknown) (no date) (unknown) [facility]) Result panel 720 (unknown) (no date) (unknown) [facility]) Result panel 721 (unknown) (no date) (unknown) [facility]) Result panel 722 (unknown) (no date) (unknown) [facility]) Result panel 723 (unknown) (no date) (unknown) [facility]) Result panel 724 (unknown) (no date) (unknown) [facility]) Result panel 725 (unknown) (no date) (unknown) [facility]) Result panel 726 (unknown) (no date) (unknown) [facility]) Result panel 727 (unknown) (no date) (unknown) [facility]) Result panel 728 (unknown) (no date) (unknown) [facility]) Result panel 729 (unknown) (no date) (unknown) [facility]) Result panel 730 (unknown) (no date) (unknown) [facility]) Result panel 731 (unknown) (no date) (unknown) [facility]) Result panel 732 (unknown) (no date) (unknown) [facility]) Result panel 733 (unknown) (no date) (unknown) [facility]) Result panel 734 (unknown) (no date) (unknown) [facility]) Result panel 735 (unknown) (no date) (unknown) [facility]) Result panel 736 (unknown) (no date) (unknown) [facility]) Result panel 737 (unknown) (no date) (unknown) [facility]) Result panel 738 (unknown) (no date) (unknown) [facility]) Result panel 739 (unknown) (no date) (unknown) [facility]) Result panel 740 (unknown) (no date) (unknown) [facility]) Result panel 741 (unknown) (no date) (unknown) [facility]) Result panel 742 (unknown) (no date) (unknown) [facility]) Result panel 743 (unknown) (no date) (unknown) [facility]) Result panel 744 (unknown) (no date) (unknown) [facility]) Result panel 745 (unknown) (no date) (unknown) [facility]) Result panel 746 (unknown) (no date) (unknown) [facility]) Result panel 747 (unknown) (no date) (unknown) [facility]) Result panel 748 (unknown) (no date) (unknown) [facility]) Result panel 749 (unknown) (no date) (unknown) [facility]) Result panel 750 (unknown) (no date) (unknown) [facility]) Result panel 751 (unknown) (no date) (unknown) [facility]) Result panel 752 (unknown) (no date) (unknown) [facility]) Result panel 753 (unknown) (no date) (unknown) [facility]) Result panel 754 (unknown) (no date) (unknown) [facility]) Result panel 755 (unknown) (no date) (unknown) [facility]) Result panel 756 (unknown) (no date) (unknown) [facility]) Result panel 757 (unknown) (no date) (unknown) [facility]) Result panel 758 (unknown) (no date) (unknown) [facility]) Result panel 759 (unknown) (no date) (unknown) [facility]) Result panel 760 (unknown) (no date) (unknown) [facility]) Result panel 761 (unknown) (no date) (unknown) [facility]) Result panel 762 (unknown) (no date) (unknown) [facility]) Result panel 763 (unknown) (no date) (unknown) [facility]) Result panel 764 (unknown) (no date) (unknown) [facility]) Result panel 765 (unknown) (no date) (unknown) [facility]) Result panel 766 (unknown) (no date) (unknown) [facility]) Result panel 767 (unknown) (no date) (unknown) [facility]) Result panel 768 (unknown) (no date) (unknown) [facility]) Result panel 769 (unknown) (no date) (unknown) [facility]) Result panel 770 (unknown) (no date) (unknown) [facility]) Result panel 771 (unknown) (no date) (unknown) [facility]) Result panel 772 (unknown) (no date) (unknown) [facility]) Result panel 773 (unknown) (no date) (unknown) [facility]) Result panel 774 (unknown) (no date) (unknown) [facility]) Result panel 775 (unknown) (no date) (unknown) [facility]) Result panel 776 (unknown) (no date) (unknown) [facility]) Result panel 777 (unknown) (no date) (unknown) [facility]) Result panel 778 (unknown) (no date) (unknown) [facility]) Result panel 779 (unknown) (no date) (unknown) [facility]) Result panel 780 (unknown) (no date) (unknown) [facility]) Result panel 781 (unknown) (no date) (unknown) [facility]) Result panel 782 (unknown) (no date) (unknown) [facility]) Result panel 783 (unknown) (no date) (unknown) [facility]) Result panel 784 (unknown) (no date) (unknown) [facility]) Result panel 785 (unknown) (no date) (unknown) [facility]) Result panel 786 (unknown) (no date) (unknown) [facility]) Result panel 787 (unknown) (no date) (unknown) [facility]) Result panel 788 (unknown) (no date) (unknown) [facility]) Result panel 789 (unknown) (no date) (unknown) [facility]) Result panel 790 (unknown) (no date) (unknown) [facility]) Result panel 791 (unknown) (no date) (unknown) [facility]) Result panel 792 (unknown) (no date) (unknown) [facility]) Result panel 793 (unknown) (no date) (unknown) [facility]) Result panel 794 (unknown) (no date) (unknown) [facility]) Result panel 795 (unknown) (no date) (unknown) [facility]) Result panel 796 (unknown) (no date) (unknown) [facility]) Result panel 797 (unknown) (no date) (unknown) [facility]) Result panel 798 (unknown) (no date) (unknown) [facility]) Result panel 799 (unknown) (no date) (unknown) [facility]) Result panel 800 (unknown) (no date) (unknown) [facility]) Result panel 801 (unknown) (no date) (unknown) [facility]) Result panel 802 (unknown) (no date) (unknown) [facility]) Result panel 803 (unknown) (no date) (unknown) [facility]) Result panel 804 (unknown) (no date) (unknown) [facility]) Result panel 805 (unknown) (no date) (unknown) [facility]) Result panel 806 (unknown) (no date) (unknown) [facility]) Result panel 807 (unknown) (no date) (unknown) [facility]) Result panel 808 (unknown) (no date) (unknown) [facility]) Result panel 809 (unknown) (no date) (unknown) [facility]) Result panel 810 (unknown) (no date) (unknown) [facility]) Result panel 811 (unknown) (no date) (unknown) [facility]) Result panel 812 (unknown) (no date) (unknown) [facility]) Result panel 813 (unknown) (no date) (unknown) [facility]) Result panel 814 (unknown) (no date) (unknown) [facility]) Result panel 815 (unknown) (no date) (unknown) [facility]) Result panel 816 (unknown) (no date) (unknown) [facility]) Result panel 817 (unknown) (no date) (unknown) [facility]) Result panel 818 (unknown) (no date) (unknown) [facility]) Result panel 819 (unknown) (no date) (unknown) [facility]) Result panel 820 (unknown) (no date) (unknown) [facility]) Result panel 821 (unknown) (no date) (unknown) [facility]) Result panel 822 (unknown) (no date) (unknown) [facility]) Result panel 823 (unknown) (no date) (unknown) [facility]) Result panel 824 (unknown) (no date) (unknown) [facility]) Result panel 825 (unknown) (no date) (unknown) [facility]) Result panel 826 (unknown) (no date) (unknown) [facility]) Result panel 827 (unknown) (no date) (unknown) [facility]) Result panel 828 (unknown) (no date) (unknown) [facility]) Result panel 829 (unknown) (no date) (unknown) [facility]) Result panel 830 (unknown) (no date) (unknown) [facility]) Result panel 831 (unknown) (no date) (unknown) [facility]) Result panel 832 (unknown) (no date) (unknown) [facility]) Result panel 833 (unknown) (no date) (unknown) [facility]) Result panel 834 (unknown) (no date) (unknown) [facility]) Result panel 835 (unknown) (no date) (unknown) [facility]) Result panel 836 (unknown) (no date) (unknown) [facility]) Result panel 837 (unknown) (no date) (unknown) [facility]) Result panel 838 (unknown) (no date) (unknown) [facility]) Result panel 839 (unknown) (no date) (unknown) [facility]) Result panel 840 (unknown) (no date) (unknown) [facility]) Result panel 841 (unknown) (no date) (unknown) [facility]) Result panel 842 (unknown) (no date) (unknown) [facility]) Result panel 843 (unknown) (no date) (unknown) [facility]) Result panel 844 (unknown) (no date) (unknown) [facility]) Result panel 845 (unknown) (no date) (unknown) [facility]) Result panel 846 (unknown) (no date) (unknown) [facility]) Result panel 847 (unknown) (no date) (unknown) [facility]) Result panel 848 (unknown) (no date) (unknown) [facility]) Result panel 849 (unknown) (no date) (unknown) [facility]) Result panel 850 (unknown) (no date) (unknown) [facility]) Result panel 851 (unknown) (no date) (unknown) [facility]) Result panel 852 (unknown) (no date) (unknown) [facility]) Result panel 853 (unknown) (no date) (unknown) [facility]) Result panel 854 (unknown) (no date) (unknown) [facility]) Result panel 855 (unknown) (no date) (unknown) [facility]) Result panel 856 (unknown) (no date) (unknown) [facility]) Result panel 857 (unknown) (no date) (unknown) [facility]) Result panel 858 (unknown) (no date) (unknown) [facility]) Result panel 859 (unknown) (no date) (unknown) [facility]) Result panel 860 (unknown) (no date) (unknown) [facility]) Result panel 861 (unknown) (no date) (unknown) [facility]) Result panel 862 (unknown) (no date) (unknown) [facility]) Result panel 863 (unknown) (no date) (unknown) [facility]) Result panel 864 (unknown) (no date) (unknown) [facility]) Result panel 865 (unknown) (no date) (unknown) [facility]) Result panel 866 (unknown) (no date) (unknown) [facility]) Result panel 867 (unknown) (no date) (unknown) [facility]) Result panel 868 (unknown) (no date) (unknown) [facility]) Result panel 869 (unknown) (no date) (unknown) [facility]) Result panel 870 (unknown) (no date) (unknown) [facility]) Result panel 871 (unknown) (no date) (unknown) [facility]) Result panel 872 (unknown) (no date) (unknown) [facility]) Result panel 873 (unknown) (no date) (unknown) [facility]) Result panel 874 (unknown) (no date) (unknown) [facility]) Result panel 875 (unknown) (no date) (unknown) [facility]) Result panel 876 (unknown) (no date) (unknown) [facility]) Result panel 877 (unknown) (no date) (unknown) [facility]) Result panel 878 (unknown) (no date) (unknown) [facility]) Result panel 879 (unknown) (no date) (unknown) [facility]) Result panel 880 (unknown) (no date) (unknown) [facility]) Result panel 881 (unknown) (no date) (unknown) [facility]) Result panel 882 (unknown) (no date) (unknown) [facility]) Result panel 883 (unknown) (no date) (unknown) [facility]) Result panel 884 (unknown) (no date) (unknown) [facility]) Result panel 885 (unknown) (no date) (unknown) [facility]) Result panel 886 (unknown) (no date) (unknown) [facility]) Result panel 887 (unknown) (no date) (unknown) [facility]) Result panel 888 (unknown) (no date) (unknown) [facility]) Result panel 889 (unknown) (no date) (unknown) [facility]) Result panel 890 (unknown) (no date) (unknown) [facility]) Result panel 891 (unknown) (no date) (unknown) [facility]) Result panel 892 (unknown) (no date) (unknown) [facility]) Result panel 893 (unknown) (no date) (unknown) [facility]) Result panel 894 (unknown) (no date) (unknown) [facility]) Result panel 895 (unknown) (no date) (unknown) [facility]) Result panel 896 (unknown) (no date) (unknown) [facility]) Result panel 897 (unknown) (no date) (unknown) [facility]) Result panel 898 (unknown) (no date) (unknown) [facility]) Result panel 899 (unknown) (no date) (unknown) [facility]) Result panel 900 (unknown) (no date) (unknown) [facility]) Result panel 901 (unknown) (no date) (unknown) [facility]) Result panel 902 (unknown) (no date) (unknown) [facility]) Result panel 903 (unknown) (no date) (unknown) [facility]) Result panel 904 (unknown) (no date) (unknown) [facility]) Result panel 905 (unknown) (no date) (unknown) [facility]) Result panel 906 (unknown) (no date) (unknown) [facility]) Result panel 907 (unknown) (no date) (unknown) [facility]) Result panel 908 (unknown) (no date) (unknown) [facility]) Result panel 909 (unknown) (no date) (unknown) [facility]) Result panel 910 (unknown) (no date) (unknown) [facility]) Result panel 911 (unknown) (no date) (unknown) [facility]) Result panel 912 (unknown) (no date) (unknown) [facility]) Result panel 913 (unknown) (no date) (unknown) [facility]) Result panel 914 (unknown) (no date) (unknown) [facility]) Result panel 915 (unknown) (no date) (unknown) [facility]) Result panel 916 (unknown) (no date) (unknown) [facility]) Result panel 917 (unknown) (no date) (unknown) [facility]) Result panel 918 (unknown) (no date) (unknown) [facility]) Result panel 919 (unknown) (no date) (unknown) [facility]) Result panel 920 (unknown) (no date) (unknown) [facility]) Result panel 921 (unknown) (no date) (unknown) [facility]) Result panel 922 (unknown) (no date) (unknown[facility]) Result panel 923 (unknown) (no date) (unknown) [facility]) Result panel 924 (unknown) (no date) (unknown[facility]) Result panel 925 (unknown) (no date) (unknown) [facility] Result panel 926 (unknown) (no date) (unknown) [facility]) Result panel 927 (unknown) (no date) (unknown) [facility] Result panel 928 (unknown) (no date) (unknown) [facility]) Result panel 929 (unknown) (no date) (unknown) [facility]) Result panel 930 (unknown) (no date) (unknown) [facility]) Result panel 931 (unknown) (no date) (unknown) [facility]) Result panel 932 (unknown) (no date) (unknown) [facility]) Result panel 933 (unknown) (no date) (unknown) [facility]) Result panel 934 (unknown) (no date) (unknown) [facility]) Result panel 935 (unknown) (no date) (unknown) [facility] Result panel 936 (unknown) (no date) (unknown) [facility]) Result panel 937 (unknown) (no date) (unknown) [facility]) Result panel 938 (unknown) (no date) (unknown) [facility]) Result panel 939 (unknown) (no date) (unknown) [facility]) Result panel 940 (unknown) (no date) (unknown) [facility]) Result panel 941 (unknown) (no date) (unknown) [facility]) Result panel 942 (unknown) (no date) (unknown) [facility]) Result panel 943 (unknown) (no date) (unknown) [facility]) Result panel 944 (unknown) (no date) (unknown) [facility]) Result panel 945 (unknown) (no date) (unknown) [facility]) Result panel 946 (unknown) (no date) (unknown) [facility]) Result panel 947 (unknown) (no date) (unknown) [facility]) Result panel 948 (unknown) (no date) (unknown) [facility]) Result panel 949 (unknown) (no date) (unknown[facility]) Result panel 950 (unknown) (no date) (unknown) [facility]) Result panel 951 (unknown) (no date) (unknown) [facility]) Result panel 952 (unknown) (no date) (unknown) [facility]) Result panel 953 (unknown) (no date) (unknown) [facility]) Result panel 954 (unknown) (no date) (unknown) [facility]) Result panel 955 (unknown) (no date) (unknown) [facility]) Result panel 956 (unknown) (no date) (unknown) [facility]) Result panel 957 (unknown) (no date) (unknown) [facility]) Result panel 958 (unknown) (no date) (unknown) [facility]) Result panel 959 (unknown) (no date) (unknown) [facility]) Result panel 960 (unknown) (no date) (unknown) [facility]) Result panel 961 (unknown) (no date) (unknown) [facility]) Result panel 962 (unknown) (no date) (unknown) [facility]) Result panel 963 (unknown) (no date) (unknown) [facility]) Result panel 964 (unknown) (no date) (unknown) [facility]) Result panel 965 (unknown) (no date) (unknown) [facility]) Result panel 966 (unknown) (no date) (unknown) [facility]) Result panel 967 (unknown) (no date) (unknown) [facility]) Result panel 968 (unknown) (no date) (unknown) [facility]) Result panel 969 (unknown) (no date) (unknown) [facility]) Result panel 970 (unknown) (no date) (unknown) [facility]) Result panel 971 (unknown) (no date) (unknown) [facility]) Result panel 972 (unknown) (no date) (unknown) [facility]) Result panel 973 (unknown) (no date) (unknown) [facility]) Result panel 974 (unknown) (no date) (unknown) [facility]) Result panel 975 (unknown) (no date) (unknown) [facility]) Result panel 976 (unknown) (no date) (unknown) [facility]) Result panel 977 (unknown) (no date) (unknown) [facility]) Result panel 978 (unknown) (no date) (unknown) [facility]) Result panel 979 (unknown) (no date) (unknown) [facility]) Result panel 980 (unknown) (no date) (unknown) [facility]) Result panel 981 (unknown) (no date) (unknown) [facility]) Result panel 982 (unknown) (no date) (unknown) [facility]) Result panel 983 (unknown) (no date) (unknown) [facility]) Result panel 984 (unknown) (no date) (unknown) [facility]) Result panel 985 (unknown) (no date) (unknown) [facility]) Result panel 986 (unknown) (no date) (unknown) [facility]) Result panel 987 (unknown) (no date) (unknown) [facility]) Result panel 988 (unknown) (no date) (unknown) [facility]) Result panel 989 (unknown) (no date) (unknown) [facility]) Result panel 990 (unknown) (no date) (unknown) [facility]) Result panel 991 (unknown) (no date) (unknown) [facility]) Result panel 992 (unknown) (no date) (unknown) [facility]) Result panel 993 (unknown) (no date) (unknown) [facility]) Result panel 994 (unknown) (no date) (unknown) [facility]) Result panel 995 (unknown) (no date) (unknown) [facility]) Result panel 996 (unknown) (no date) (unknown) [facility]) Result panel 997 (unknown) (no date) (unknown) [facility]) Result panel 998 (unknown) (no date) (unknown) [facility]) Result panel 999 (unknown) (no date) (unknown) [facility]) Result panel 1000 (unknown) (no date) (unknown) [facility]) Result panel 1001 (unknown) (no date) (unknown) [facility]) Result panel 1002 (unknown) (no date) (unknown) [facility]) Result panel 1003 (unknown) (no date) (unknown) [facility]) Result panel 1004 (unknown) (no date) (unknown) [facility]) Result panel 1005 (unknown) (no date) (unknown) [facility]) Result panel 1006 (unknown) (no date) (unknown) [facility]) Result panel 1007 (unknown) (no date) (unknown) [facility]) Result panel 1008 (unknown) (no date) (unknown) [facility]) Result panel 1009 (unknown) (no date) (unknown) [facility]) Result panel 1010 (unknown) (no date) (unknown) [facility]) Result panel 1011 (unknown) (no date) (unknown) [facility]) Result panel 1012 (unknown) (no date) (unknown) [facility]) Result panel 1013 (unknown) (no date) (unknown) [facility]) Result panel 1014 (unknown) (no date) (unknown) [facility]) Result panel 1015 (unknown) (no date) (unknown) [facility]) Result panel 1016 (unknown) (no date) (unknown) [facility]) Result panel 1017 (unknown) (no date) (unknown) [facility]) Result panel 1018 (unknown) (no date) (unknown) [facility]) Result panel 1019 (unknown) (no date) (unknown) [facility]) Result panel 1020 (unknown) (no date) (unknown) [facility]) Result panel 1021 (unknown) (no date) (unknown) [facility]) Result panel 1022 (unknown) (no date) (unknown) [facility]) Result panel 1023 (unknown) (no date) (unknown) [facility]) Result panel 1024 (unknown) (no date) (unknown) [facility]) Result panel 1025 (unknown) (no date) (unknown) [facility]) Result panel 1026 (unknown) (no date) (unknown) [facility]) Result panel 1027 (unknown) (no date) (unknown) [facility]) Result panel 1028 (unknown) (no date) (unknown) [facility]) Result panel 1029 (unknown) (no date) (unknown) [facility]) Result panel 1030 (unknown) (no date) (unknown) [facility]) Result panel 1031 (unknown) (no date) (unknown) [facility]) Result panel 1032 (unknown) (no date) (unknown) [facility]) Result panel 1033 (unknown) (no date) (unknown) [facility]) Result panel 1034 (unknown) (no date) (unknown) [facility]) Result panel 1035 (unknown) (no date) (unknown) [facility]) Result panel 1036 (unknown) (no date) (unknown) [facility]) Result panel 1037 (unknown) (no date) (unknown) [facility]) Result panel 1038 (unknown) (no date) (unknown) [facility]) Result panel 1039 (unknown) (no date) (unknown) [facility]) Result panel 1040 (unknown) (no date) (unknown) [facility]) Result panel 1041 (unknown) (no date) (unknown) [facility]) Result panel 1042 (unknown) (no date) (unknown) [facility]) Result panel 1043 (unknown) (no date) (unknown) [facility]) Result panel 1044 (unknown) (no date) (unknown) [facility]) Result panel 1045 (unknown) (no date) (unknown) [facility]) Result panel 1046 (unknown) (no date) (unknown) [facility]) Result panel 1047 (unknown) (no date) (unknown) [facility]) Result panel 1048 (unknown) (no date) (unknown) [facility]) Result panel 1049 (unknown) (no date) (unknown) [facility]) Result panel 1050 (unknown) (no date) (unknown) [facility]) Result panel 1051 (unknown) (no date) (unknown) [facility]) Result panel 1052 (unknown) (no date) (unknown) [facility]) Result panel 1053 (unknown) (no date) (unknown) [facility]) Result panel 1054 (unknown) (no date) (unknown) [facility]) Result panel 1055 (unknown) (no date) (unknown) [facility]) Result panel 1056 (unknown) (no date) (unknown) [facility]) Result panel 1057 (unknown) (no date) (unknown) [facility]) Result panel 1058 (unknown) (no date) (unknown) [facility]) Result panel 1059 (unknown) (no (unknown) (unknown) (no value) (units (unk nown) date) unknown) (unknown) (no (unknown) (unknown) [id number] (units (unkno wn) date) unknown) (unknown) (no (unknown) (unknown) 07/11/22 20:32 (units (unknown) date) unknown) (unknown) (no (unknown) (unknown) 300 mg PO BID (units ( unknown) date) unknown) (unknown) (no (unknown) (unknown) 50 mg PO BID (units (u nknown) date) unknown) (unknown) (no (unknown) (unknown) Age/Sex: 47 / M (units (unknown) date) unknown) (unknown) (no (unknown) (unknown) Allergies (units (unkn own) date) unknown) (unknown) (no (unknown) (unknown) Allergy/AdvReac (units (unknown) date) Type Severity unknown) Reaction Status Date / Time (unknown) (no (unknown) (unknown) Back pain (units (unkn own) date) unknown) (unknown) (no (unknown) (unknown) C-Reactive (units (unk nown) date) Protein Quant unknown) Stat (unknown) (no (unknown) (unknown) Complete Blood (units (unknown) date) Count AUTO DIFF unknown) Stat (unknown) (no (unknown) (unknown) Comprehensive (units ( unknown) date) Metabolic Panel unknown) Stat (unknown) (no (unknown) (unknown) Course (units (unkno wn) date) unknown) (unknown) (no (unknown) (unknown) : 1975 (units (unknown) date) Acct:[id number] unknown) (unknown) (no (unknown) (unknown) Date of Service: (units (unknown) date) 07/11/22 unknown) (unknown) (no (unknown) (unknown) Departure (units (unkn own) date) unknown) (unknown) (no (unknown) (unknown) Discharge Plan (units (unknown) date) unknown) (unknown) (no (unknown) (unknown) Discontinued (units (u nknown) date) Medications unknown) (unknown) (no (unknown) (unknown) ED Orders (units (unkn own) date) unknown) (unknown) (no (unknown) (unknown) ER Physician: (units ( unknown) date) Stephan Issa unknown) D.O. (unknown) (no (unknown) (unknown) Emergency Report (units (unknown) date) unknown) (unknown) (no (unknown) (unknown) Erythrocyte (units (un known) date) Sedimentation unknown) Rate Stat (unknown) (no (unknown) (unknown) Family History (units (unknown) date) (Reviewed unknown) 10/31/21 @ 21:00 by GENIE Johnson) (unknown) (no (unknown) (unknown) Father CVA (units (unk nown) date) (cerebral unknown) vascular accident) (unknown) (no (unknown) (unknown) Functional (units (unk nown) date) paraparesis unknown) (unknown) (no (unknown) (unknown) General (units (unkno wn) date) unknown) (unknown) (no (unknown) (unknown) HPI - Chest Pain (units (unknown) date) unknown) (unknown) (no (unknown) (unknown) History of (units (unk nown) date) spinal surgery unknown) (unknown) (no (unknown) (unknown) History of (units (unk nown) date) tonsillectomy unknown) (unknown) (no (unknown) (unknown) Home Medications (units (unknown) date) unknown) (unknown) (no (unknown) (unknown) Hypertension (units (u nknown) date) unknown) (unknown) (no (unknown) (unknown) [facility] (units (unknown) date) [address] [place] [address] unknown) [place] [address] (unknown) (no (unknown) (unknown) Label Comments: (units (unknown) date) unknown) (unknown) (no (unknown) (unknown) Lidocaine (units (unkn own) date) (Lidocaine Patch unknown) 1 Each Adh..Patch) 1 each TOP NOW ONE (unknown) (no (unknown) (unknown) Medical History (units (unknown) date) (Reviewed unknown) 10/31/21 @ 21:00 by GENIE Johnson) (unknown) (no (unknown) (unknown) Medication (units (unk nown) date) Instructions unknown) Recorded Confirmed (unknown) (no (unknown) (unknown) Mother (units (unkno wn) date) Myocardial unknown) infarct (unknown) (no (unknown) (unknown) Neurogenic pain (units (unknown) date) unknown) (unknown) (no (unknown) (unknown) No Action (units (unkn own) date) unknown) (unknown) (no (unknown) (unknown) Ordered: (units (unkno wn) date) unknown) (unknown) (no (unknown) (unknown) Orders (units (unkno wn) date) unknown) (unknown) (no (unknown) (unknown) Patient History (units (unknown) date) unknown) (unknown) (no (unknown) (unknown) Patient: Eleazar (units ( unknown) date) Yann Jones MR#: unknown) M00 (unknown) (no (unknown) (unknown) Prescriptions: (units (unknown) date) unknown) (unknown) (no (unknown) (unknown) Referrals: (units (unk nown) date) unknown) (unknown) (no (unknown) (unknown) Related Data (units (u nknown) date) unknown) (unknown) (no (unknown) (unknown) 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 unknown) (unknown) (no (unknown) (unknown) Signed By: (units (unk nown) date) unknown) (unknown) (no (unknown) (unknown) Smoking Status: (units (unknown) date) Current some day unknown) smoker (unknown) (no (unknown) (unknown) Social History (units (unknown) date) (Reviewed unknown) 10/31/21 @ 21:00 by GENIE Johnson) (unknown) (no (unknown) (unknown) Stated (units (unkno wn) date) Complaint: Left unknown) chest pain x 1 week (unknown) (no (unknown) (unknown) Stop: 07/11/22 (units (unknown) date) 20:33 unknown) (unknown) (no (unknown) (unknown) Substance Use (units ( unknown) date) Type: marijuana unknown) (unknown) (no (unknown) (unknown) Surgical History (units (unknown) date) (Reviewed unknown) 10/31/21 @ 21:00 by GENIE Johnson) (unknown) (no (unknown) (unknown) Take 1 capsule (units (unknown) date) by mouth twice a unknown) day for chronic back pain (unknown) (no (unknown) (unknown) Take 1 tablet by (units (unknown) date) mouth twice a day unknown) (unknown) (no (unknown) (unknown) Time Seen by (units (u nknown) date) Provider: unknown) 07/11/22 20:31 (unknown) (no (unknown) (unknown) Troponin + CK (units ( unknown) date) Cardiac Panel unknown) Stat (unknown) (no (unknown) (unknown) Danika García, (units (unknown) date) PA-C [Primary unknown) Care Provider] (unknown) (no (unknown) (unknown) alcohol intake (units (unknown) date) frequency: unknown) holidays/special occasions only (unknown) (no (unknown) (unknown) alcohol intake: (units (unknown) date) current unknown) (unknown) (no (unknown) (unknown) gabapentin (units (unk nown) date) AdvReac [place] unknown) Verified 10/16/21 09:17 (unknown) (no (unknown) (unknown) household (units (unkn own) date) members: spouse, unknown) children, friend(s) and other (unknown) (no (unknown) (unknown) metoprolol (units (unk nown) date) tartrate 50 mg unknown) tablet 50 mg PO BID 10/15/21 10/15/21 (unknown) (no (unknown) (unknown) metoprolol (units (unk nown) date) tartrate 50 mg unknown) tablet (unknown) (no (unknown) (unknown) morphine Allergy (units (unknown) date) Nightmare unknown) Verified 10/16/21 09:17 (unknown) (no (unknown) (unknown) pregabalin 300 (units (unknown) date) mg capsule unknown) (Lyrica) 300 mg PO BID 10/15/21 10/15/21 (unknown) (no (unknown) (unknown) pregabalin (units (unk nown) date) [Lyrica] 300 mg unknown) capsule Result panel 1060 (unknown) (no (unknown) (unknown) (no value) (units (unk nown) date) unknown) (unknown) (no (unknown) (unknown) [id number] (units (unkno wn) date) unknown) (unknown) (no (unknown) (unknown) 1. No acute (units (un known) date) cardiopulmonary unknown) disease. (unknown) (no (unknown) (unknown) 07/11/22 (units (unkno wn) date) unknown) (unknown) (no (unknown) (unknown) [facility] [address] [place] [address] (units (unknown) date) unknown) (unknown) (no (unknown) (unknown) Accession Number: (units (unknown) date) [id number] unknown) (unknown) (no (unknown) (unknown) Age/Sex: 47 / M (units (unknown) date) Date of Service: unknown) (unknown) (no (unknown) (unknown) [place], [place] (units ( unknown) date) [id number] unknown) (unknown) (no (unknown) (unknown) Approved by: (units (u nknown) date) Hossein Almanzar unknown) Marcial on 07/11/2022 at 21:50 (unknown) (no (unknown) (unknown) Bones and chest (units (unknown) date) wall: No unknown) suspicious bony lesions. Overlying soft tissues (unknown) (no (unknown) (unknown) COMPARISON: (units (un known) date) [facility]ST 1 VIEW, 06/26/2022, 15:13. (unknown) (no (unknown) (unknown) : 1975 (units (unknown) date) Acct:[id number] unknown) (unknown) (no (unknown) (unknown) Dictated by: (units (u nknown) date) Hossein Almanzar unknown) Marcial on 07/11/2022 at 21:49 (unknown) (no (unknown) (unknown) FINDINGS: (units (unkn own) date) unknown) (unknown) (no (unknown) (unknown) IMPRESSION: (units (un known) date) unknown) (unknown) (no (unknown) (unknown) INDICATIONS: left (units (unknown) date) side chest pain unknown) (unknown) (no (unknown) (unknown) [facility] (units (unknown) date) unknown) (unknown) (no (unknown) (unknown) Loc: ED (units (unkno wn) date) unknown) (unknown) (no (unknown) (unknown) Lungs and pleura: (units (unknown) date) Lungs are clear. unknown) No pleural effusions or pneumothorax. (unknown) (no (unknown) (unknown) Mediastinum: (units (u nknown) date) Mediastinal unknown) contours appear normal. Heart size is normal. (unknown) (no (unknown) (unknown) Ordering (units (unkno wn) date) Provider: unknown) Stephan Issa D.O. (unknown) (no (unknown) (unknown) PROCEDURE: XR (units ( unknown) date) CHEST 1V unknown) (unknown) (no (unknown) (unknown) Patient: Eleazar (units ( unknown) date) Yann Jones MR#: [id number] unknown) (unknown) (no (unknown) (unknown) Procedure: XR (units ( unknown) date) chest 1V unknown) (unknown) (no (unknown) (unknown) Signed (units (unkno wn) date) unknown) (unknown) (no (unknown) (unknown) Surgical changes (units (unknown) date) and devices: None. unknown) (unknown) (no (unknown) (unknown) TECHNIQUE: One (units (unknown) date) view of the chest unknown) was acquired. (unknown) (no (unknown) (unknown) XRay Report (units (un known) date) unknown) (unknown) (no (unknown) (unknown) appear (units (unkno wn) date) unknown) (unknown) (no (unknown) (unknown) unremarkable. (units ( unknown) date) unknown) Result panel 1061 (unknown) (no date) (unknown) (unknown) > 60 ml/min (unkn own) (unknown) (no date) (unknown) (unknown) > 60 ml/min (unkn own) (unknown) (no date) (unknown) (unknown) 0.5 mg/dl (unkn own) (unknown) (no date) (unknown) (unknown) 0.81 mg/dl (unkn own) (unknown) (no date) (unknown) (unknown) 1.3 (units (unkn own) unknown) (unknown) (no date) (unknown) (unknown) 106 mmol/l (unkn own) (unknown) (no date) (unknown) (unknown) 140 mmol/l (unkn own) (unknown) (no date) (unknown) (unknown) 19 iu/l (unkn own) (unknown) (no date) (unknown) (unknown) 19 iu/l (unkn own) (unknown) (no date) (unknown) (unknown) 21 u/l (unkn own) (unknown) (no date) (unknown) (unknown) 26 mmol/l (unkn own) (unknown) (no date) (unknown) (unknown) 3.0 g/dl (unkn own) (unknown) (no date) (unknown) (unknown) 3.9 g/dl (unkn own) (unknown) (no date) (unknown) (unknown) 32 mg/dl (unkn own) (unknown) (no date) (unknown) (unknown) 39.5 (units (unkn own) unknown) (unknown) (no date) (unknown) (unknown) 4.2 mmol/l (unkn own) (unknown) (no date) (unknown) (unknown) 6.9 g/dl (unkn own) (unknown) (no date) (unknown) (unknown) 84 u/l (unkn own) (unknown) (no date) (unknown) (unknown) 9.1 mg/dl (unkn own) (unknown) (no date) (unknown) (unknown) 94 mg/dl (unkn own) (unknown) (no date) (unknown) (unknown) 94 mg/dl (unkn own) (unknown) (no date) (unknown) (unknown) Test not % (unkn own) performed (unknown) (no date) (unknown) (unknown) Test not % (unkn own) performed (unknown) (no date) (unknown) (unknown) Test not ng/ml (unkn own) performed (unknown) (no date) (unknown) (unknown) Test not ng/ml (unkn own) performed Result panel 1062 (unknown) (no date) (unknown) (unknown) 0 /ul (unkn own) (unknown) (no date) (unknown) (unknown) 0.7 % (unkn own) (unknown) (no date) (unknown) (unknown) 1100 /ul (unkn own) (unknown) (no date) (unknown) (unknown) 12.9 g/dl (unkn own) (unknown) (no date) (unknown) (unknown) 17.7 % (unkn own) (unknown) (no date) (unknown) (unknown) 18 mm/hr (unkn own) (unknown) (no date) (unknown) (unknown) 19.9 % (unkn own) (unknown) (no date) (unknown) (unknown) 192 x10 3/ul (unkn own) (unknown) (no date) (unknown) (unknown) 200 /ul (unkn own) (unknown) (no date) (unknown) (unknown) 27.4 pg (unkn own) (unknown) (no date) (unknown) (unknown) 300 /ul (unkn own) (unknown) (no date) (unknown) (unknown) 33.3 % (unkn own) (unknown) (no date) (unknown) (unknown) 38.7 % (unkn own) (unknown) (no date) (unknown) (unknown) 4.1 % (unkn own) (unknown) (no date) (unknown) (unknown) 4.71 x10 6/ul (unkn own) (unknown) (no date) (unknown) (unknown) 4000 /ul (unkn own) (unknown) (no date) (unknown) (unknown) 5.5 % (unkn own) (unknown) (no date) (unknown) (unknown) 5.7 x10 3/ul (unkn own) (unknown) (no date) (unknown) (unknown) 69.8 % (unkn own) (unknown) (no date) (unknown) (unknown) 82.2 fl (unkn own) Result panel 1063 (unknown) (no date) (unknown) (unknown) > 60 ml/min (unkn own) (unknown) (no date) (unknown) (unknown) > 60 ml/min (unkn own) (unknown) (no date) (unknown) (unknown) 0.5 mg/dl (unkn own) (unknown) (no date) (unknown) (unknown) 0.81 mg/dl (unkn own) (unknown) (no date) (unknown) (unknown) 1.3 (units (unkn own) unknown) (unknown) (no date) (unknown) (unknown) 1.9 mg/dl (unkn own) (unknown) (no date) (unknown) (unknown) 106 mmol/l (unkn own) (unknown) (no date) (unknown) (unknown) 140 mmol/l (unkn own) (unknown) (no date) (unknown) (unknown) 19 iu/l (unkn own) (unknown) (no date) (unknown) (unknown) 19 iu/l (unkn own) (unknown) (no date) (unknown) (unknown) 21 u/l (unkn own) (unknown) (no date) (unknown) (unknown) 26 mmol/l (unkn own) (unknown) (no date) (unknown) (unknown) 3.0 g/dl (unkn own) (unknown) (no date) (unknown) (unknown) 3.9 g/dl (unkn own) (unknown) (no date) (unknown) (unknown) 32 mg/dl (unkn own) (unknown) (no date) (unknown) (unknown) 39.5 (units (unkn own) unknown) (unknown) (no date) (unknown) (unknown) 4.2 mmol/l (unkn own) (unknown) (no date) (unknown) (unknown) 6.9 g/dl (unkn own) (unknown) (no date) (unknown) (unknown) 84 u/l (unkn own) (unknown) (no date) (unknown) (unknown) 9.1 mg/dl (unkn own) (unknown) (no date) (unknown) (unknown) 94 mg/dl (unkn own) (unknown) (no date) (unknown) (unknown) 94 mg/dl (unkn own) (unknown) (no date) (unknown) (unknown) Test not % (unkn own) performed (unknown) (no date) (unknown) (unknown) Test not % (unkn own) performed (unknown) (no date) (unknown) (unknown) Test not ng/ml (unkn own) performed (unknown) (no date) (unknown) (unknown) Test not ng/ml (unkn own) performed Result panel 1064 (unknown) (no date) (unknown) (unknown) > 60 ml/min (unkn own) (unknown) (no date) (unknown) (unknown) > 60 ml/min (unkn own) (unknown) (no date) (unknown) (unknown) < 0.012 ng/ml (unkn own) (unknown) (no date) (unknown) (unknown) < 0.012 ng/ml (unkn own) (unknown) (no date) (unknown) (unknown) 0.5 mg/dl (unkn own) (unknown) (no date) (unknown) (unknown) 0.81 mg/dl (unkn own) (unknown) (no date) (unknown) (unknown) 1.3 (units (unkn own) unknown) (unknown) (no date) (unknown) (unknown) 1.9 mg/dl (unkn own) (unknown) (no date) (unknown) (unknown) 106 mmol/l (unkn own) (unknown) (no date) (unknown) (unknown) 140 mmol/l (unkn own) (unknown) (no date) (unknown) (unknown) 19 iu/l (unkn own) (unknown) (no date) (unknown) (unknown) 19 iu/l (unkn own) (unknown) (no date) (unknown) (unknown) 21 u/l (unkn own) (unknown) (no date) (unknown) (unknown) 26 mmol/l (unkn own) (unknown) (no date) (unknown) (unknown) 3.0 g/dl (unkn own) (unknown) (no date) (unknown) (unknown) 3.9 g/dl (unkn own) (unknown) (no date) (unknown) (unknown) 32 mg/dl (unkn own) (unknown) (no date) (unknown) (unknown) 39.5 (units (unkn own) unknown) (unknown) (no date) (unknown) (unknown) 4.2 mmol/l (unkn own) (unknown) (no date) (unknown) (unknown) 6.9 g/dl (unkn own) (unknown) (no date) (unknown) (unknown) 84 u/l (unkn own) (unknown) (no date) (unknown) (unknown) 9.1 mg/dl (unkn own) (unknown) (no date) (unknown) (unknown) 94 mg/dl (unkn own) (unknown) (no date) (unknown) (unknown) 94 mg/dl (unkn own) (unknown) (no date) (unknown) (unknown) Test not % (unkn own) performed (unknown) (no date) (unknown) (unknown) Test not % (unkn own) performed (unknown) (no date) (unknown) (unknown) Test not ng/ml (unkn own) performed (unknown) (no date) (unknown) (unknown) Test not ng/ml (unkn own) performed Result panel 1065 (unknown) (no (unknown) (unknown) (no value) (units (unk nown) date) unknown) (unknown) (no (unknown) (unknown) [id number] (units (unkno wn) date) unknown) (unknown) (no (unknown) (unknown) 1.? No acute (units (u nknown) date) cardiopulmonary unknown) disease. (unknown) (no (unknown) (unknown) 07/11/22 07/11/22 (units (unknown) date) Range/Units unknown) (unknown) (no (unknown) (unknown) 07/11/22 20:39 (units (unknown) date) unknown) (unknown) (no (unknown) (unknown) 07/11/22 20:50 (units (unknown) date) unknown) (unknown) (no (unknown) (unknown) 07/11/22 (units (unkno wn) date) unknown) (unknown) (no (unknown) (unknown) [address] [place] [address] (units (unknown) date) unknown) (unknown) (no (unknown) (unknown) 20:25 (units (unkno wn) date) unknown) (unknown) (no (unknown) (unknown) 20:50 20:50 (units (un known) date) unknown) (unknown) (no (unknown) (unknown) 300 mg PO BID (units ( unknown) date) unknown) (unknown) (no (unknown) (unknown) 50 mg PO BID (units (u nknown) date) unknown) (unknown) (no (unknown) (unknown) ? (units (unkno wn) date) unknown) (unknown) (no (unknown) (unknown) ALT 19 (<50) IU/L (units (unknown) date) unknown) (unknown) (no (unknown) (unknown) AST 19 (17-59) (units (unknown) date) IU/L unknown) (unknown) (no (unknown) (unknown) Accession Number: (units (unknown) date) [id number] ?? unknown) (unknown) (no (unknown) (unknown) Acct:[id number] (units (unknown) date) unknown) (unknown) (no (unknown) (unknown) Age/Sex: 47 / M (units (unknown) date) unknown) (unknown) (no (unknown) (unknown) Albumin 3.9 (units (un known) date) (3.5-5.0) g/dL unknown) (unknown) (no (unknown) (unknown) Albumin/Globulin (units (unknown) date) Ratio 1.3 unknown) (1.0-2.8) (unknown) (no (unknown) (unknown) Alkaline (units (unkno wn) date) Phosphatase 84 unknown) (38-126) U/L (unknown) (no (unknown) (unknown) Allergies (units (unkn own) date) unknown) (unknown) (no (unknown) (unknown) Allergy/AdvReac (units (unknown) date) Type Severity unknown) Reaction Status Date / Time (unknown) (no (unknown) (unknown) [place] (units ( unknown) date) [id number] unknown) (unknown) (no (unknown) (unknown) Approved by: (units (u nknown) date) Hossein Almanzar, unknownSarika Ceja on 07/11/2022 at 21:50? (unknown) (no (unknown) (unknown) BUN 32 H (9-20) (units (unknown) date) mg/dL unknown) (unknown) (no (unknown) (unknown) BUN/Creatinine (units (unknown) date) Ratio 39.5 H unknown) (6-22) (unknown) (no (unknown) (unknown) Back pain (units (unkn own) date) unknown) (unknown) (no (unknown) (unknown) Baso # (Auto) 0 (units (unknown) date) (0-100) /uL unknown) (unknown) (no (unknown) (unknown) Baso % (Auto) 0.7 (units (unknown) date) (0-2) % unknown) (unknown) (no (unknown) (unknown) Blood Pressure (units (unknown) date) 123/86 07/11/22 unknown) 20:25 (unknown) (no (unknown) (unknown) Blood Pressure (units (unknown) date) 123/86 unknown) (unknown) (no (unknown) (unknown) Bones and chest (units (unknown) date) wall:? No unknown) suspicious bony lesions.? Overlying soft tissues (unknown) (no (unknown) (unknown) C-Reactive (units (unk nown) date) Protein 1.9 H unknown) (<1.0) mg/dL (unknown) (no (unknown) (unknown) C-Reactive (units (unk nown) date) Protein Quant Stat unknown) (unknown) (no (unknown) (unknown) CK-MB (CK-2) Rel (units (unknown) date) Index TNP unknown) (unknown) (no (unknown) (unknown) CK-MB (CK-2) TNP (units (unknown) date) unknown) (unknown) (no (unknown) (unknown) COMPARISON:? (units (u nknown) date) [facility] 1 [facility]IEW, 06/26/2022, 15:13. (unknown) (no (unknown) (unknown) Calcium 9.1 (units (un known) date) (8.4-10.2) mg/dL unknown) (unknown) (no (unknown) (unknown) Carbon Dioxide 26 (units (unknown) date) (22-32) mmol/L unknown) (unknown) (no (unknown) (unknown) Chest [XR chest (units (unknown) date) 1V] Stat unknown) (unknown) (no (unknown) (unknown) Chest x-ray: (units (u nknown) date) unknown) (unknown) (no (unknown) (unknown) Chief Complaint: (units (unknown) date) Chest Pain unknown) (unknown) (no (unknown) (unknown) Chloride 106 (units (u nknown) date) (98-107) mmol/L unknown) (unknown) (no (unknown) (unknown) Complete Blood (units (unknown) date) Count AUTO DIFF unknown) Stat (unknown) (no (unknown) (unknown) Comprehensive (units ( unknown) date) Metabolic Panel unknown) Stat (unknown) (no (unknown) (unknown) Course (units (unkno wn) date) unknown) (unknown) (no (unknown) (unknown) Creatinine 0.81 (units (unknown) date) (0.66-1.25) mg/dL unknown) (unknown) (no (unknown) (unknown) : 1975 (units (unknown) date) Acct:[id number] unknown) (unknown) (no (unknown) (unknown) : 1975 (units (unknown) date) unknown) (unknown) (no (unknown) (unknown) Date of Service: (units (unknown) date) 07/11/22 unknown) (unknown) (no (unknown) (unknown) Departure (units (unkn own) date) unknown) (unknown) (no (unknown) (unknown) Dictated by: (units (u nknown) date) Hossein Almanzar, unknownSarika Ceja on 07/11/2022 at 21:49 ? ? (unknown) (no (unknown) (unknown) Discharge Plan (units (unknown) date) unknown) (unknown) (no (unknown) (unknown) Discontinued (units (u nknown) date) Medications unknown) (unknown) (no (unknown) (unknown) Documented By: BS (units (unknown) date) unknown) (unknown) (no (unknown) (unknown) ED Orders (units (unkn own) date) unknown) (unknown) (no (unknown) (unknown) ER Physician: (units ( unknown) date) Stephan Issa D.O. unknown) (unknown) (no (unknown) (unknown) ESR 18 H (0-15) (units (unknown) date) MM/HR unknown) (unknown) (no (unknown) (unknown) Emergency Report (units (unknown) date) unknown) (unknown) (no (unknown) (unknown) Eos # (Auto) 200 (units (unknown) date) (0-450) /uL unknown) (unknown) (no (unknown) (unknown) Eos % (Auto) 4.1 (units (unknown) date) H (2-4) % unknown) (unknown) (no (unknown) (unknown) Erythrocyte (units (un known) date) Sedimentation Rate unknown) Stat (unknown) (no (unknown) (unknown) Estimated GFR > (units (unknown) date) 60 (>60) mL/min unknown) (unknown) (no (unknown) (unknown) Exam (units (unkno wn) date) unknown) (unknown) (no (unknown) (unknown) FINDINGS:? (units (unk nown) date) unknown) (unknown) (no (unknown) (unknown) Family History (units (unknown) date) (Reviewed 10/31/21 unknown) @ 21:00 by GENIE Johnson) (unknown) (no (unknown) (unknown) Father CVA (units (unk nown) date) (cerebral vascular unknown) accident) (unknown) (no (unknown) (unknown) Functional (units (unk nown) date) paraparesis unknown) (unknown) (no (unknown) (unknown) General (units (unkno wn) date) unknown) (unknown) (no (unknown) (unknown) Globulin 3.0 (units (u nknown) date) (1.7-4.1) g/dL unknown) (unknown) (no (unknown) (unknown) Glucose 94 (units (unk nown) date) (70-100) mg/dL unknown) (unknown) (no (unknown) (unknown) HPI - Chest Pain (units (unknown) date) unknown) (unknown) (no (unknown) (unknown) Hct 38.7 L (units (unk nown) date) (41-53) % unknown) (unknown) (no (unknown) (unknown) Hgb 12.9 L (units (unk nown) date) (13.5-17.5) g/dL unknown) (unknown) (no (unknown) (unknown) History of spinal (units (unknown) date) surgery unknown) (unknown) (no (unknown) (unknown) History of (units (unk nown) date) tonsillectomy unknown) (unknown) (no (unknown) (unknown) Home Medications (units (unknown) date) unknown) (unknown) (no (unknown) (unknown) Hypertension (units (u nknown) date) unknown) (unknown) (no (unknown) (unknown) IMPRESSION:? (units (u nknown) date) unknown) (unknown) (no (unknown) (unknown) INDICATIONS:? (units ( unknown) date) left side chest unknown) pain (unknown) (no (unknown) (unknown) Imaging Data (units (u nknown) date) unknown) (unknown) (no (unknown) (unknown) Initial Vital (units ( unknown) date) Signs unknown) (unknown) (no (unknown) (unknown) Initial Vital (units ( unknown) date) Signs: unknown) (unknown) (no (unknown) (unknown) [facility] (units (unknown) date) [address] unknown) [place] [address] (unknown) (no (unknown) (unknown) [facility] (units (unknown) date) unknown) (unknown) (no (unknown) (unknown) Lab Data (units (unkno wn) date) unknown) (unknown) (no (unknown) (unknown) Lab Results (units (un known) date) unknown) (unknown) (no (unknown) (unknown) Label Comments: (units (unknown) date) unknown) (unknown) (no (unknown) (unknown) Labs: (units (unkno wn) date) unknown) (unknown) (no (unknown) (unknown) Last Admin: (units (un known) date) 07/11/22 21:00 unknown) Dose: 1 each (unknown) (no (unknown) (unknown) Lidocaine (units (unkn own) date) (Lidocaine Patch 1 unknown) Each Adh..Patch) 1 each TOP NOW ONE (unknown) (no (unknown) (unknown) Loc: ED (units (unkno wn) date) unknown) (unknown) (no (unknown) (unknown) Lungs and (units (unkn own) date) pleura:? Lungs are unknown) clear.? No pleural effusions or pneumothorax.? (unknown) (no (unknown) (unknown) Lymph # (Auto) (units (unknown) date) 1100 (8628-3836) unknown) /uL (unknown) (no (unknown) (unknown) Lymph % (Auto) (units (unknown) date) 19.9 L (25-40) % unknown) (unknown) (no (unknown) (unknown) MCH 27.4 (26-34) (units (unknown) date) PG unknown) (unknown) (no (unknown) (unknown) MCHC 33.3 (30-36) (units (unknown) date) % unknown) (unknown) (no (unknown) (unknown) MCV 82.2 (80-100) (units (unknown) date) fL unknown) (unknown) (no (unknown) (unknown) MDM - Chest Pain (units (unknown) date) unknown) (unknown) (no (unknown) (unknown) MR#: [id number] (units (unknown) date) unknown) (unknown) (no (unknown) (unknown) Mediastinum:? (units ( unknown) date) Mediastinal unknown) contours appear normal.? Heart size is normal.? (unknown) (no (unknown) (unknown) Medical History (units (unknown) date) (Reviewed 10/31/21 unknown) @ 21:00 by GENIE Johnson) (unknown) (no (unknown) (unknown) Medication (units (unk nown) date) Instructions unknown) Recorded Confirmed (unknown) (no (unknown) (unknown) [place] # (Auto) 300 (units (unknown) date) (0-900) /uL unknown) (unknown) (no (unknown) (unknown) [place] % (Auto) 5.5 (units (unknown) date) (3-14) % unknown) (unknown) (no (unknown) (unknown) Mother Myocardial (units (unknown) date) infarct unknown) (unknown) (no (unknown) (unknown) Neurogenic pain (units (unknown) date) unknown) (unknown) (no (unknown) (unknown) Neut # (Auto) (units ( unknown) date) 4000 (3197-0222) unknown) /uL (unknown) (no (unknown) (unknown) Neut % (Auto) (units ( unknown) date) 69.8 (50-75) % unknown) (unknown) (no (unknown) (unknown) No Action (units (unkn own) date) unknown) (unknown) (no (unknown) (unknown) Ordered: (units (unkno wn) date) unknown) (unknown) (no (unknown) (unknown) Ordering (units (unkno wn) date) Provider: unknown) Stephan Issa D.O. (unknown) (no (unknown) (unknown) Orders (units (unkno wn) date) unknown) (unknown) (no (unknown) (unknown) Oxygen Delivery (units (unknown) date) Method 07/11/22 unknown) 20:25 (unknown) (no (unknown) (unknown) Oxygen Delivery (units (unknown) date) Method Room Air unknown) (unknown) (no (unknown) (unknown) PROCEDURE:? XR (units (unknown) date) CHEST 1V unknown) (unknown) (no (unknown) (unknown) Patient History (units (unknown) date) unknown) (unknown) (no (unknown) (unknown) Patient: Eleazar (units ( unknown) date) Yann Jones MR#: unknown) M00 (unknown) (no (unknown) (unknown) Patient: Eleazar (units ( unknown) date) Yann Jones unknown) (unknown) (no (unknown) (unknown) Plt Count 192 (units ( unknown) date) (150-400) X103/uL unknown) (unknown) (no (unknown) (unknown) Potassium 4.2 (units ( unknown) date) (3.4-5.1) mmol/L unknown) (unknown) (no (unknown) (unknown) Prescriptions: (units (unknown) date) unknown) (unknown) (no (unknown) (unknown) Procedure: XR (units ( unknown) date) chest 1V unknown) (unknown) (no (unknown) (unknown) Pulse Oximetry 97 (units (unknown) date) 07/11/22 20:25 unknown) (unknown) (no (unknown) (unknown) Pulse Oximetry 97 (units (unknown) date) unknown) (unknown) (no (unknown) (unknown) Pulse Rate 98 H (units (unknown) date) 07/11/22 20:25 unknown) (unknown) (no (unknown) (unknown) Pulse Rate 98 H (units (unknown) date) unknown) (unknown) (no (unknown) (unknown) RBC 4.71 (units (unkno wn) date) (4.5-5.9) X106/uL unknown) (unknown) (no (unknown) (unknown) RDW 17.7 H (units (unk nown) date) (11.6-14.8) % unknown) (unknown) (no (unknown) (unknown) Radiologist's (units ( unknown) date) Impression: unknown) (unknown) (no (unknown) (unknown) Referrals: (units (unk nown) date) unknown) (unknown) (no (unknown) (unknown) Related Data (units (u nknown) date) unknown) (unknown) (no (unknown) (unknown) Respiratory Rate (units (unknown) date) 18 07/11/22 20:25 unknown) (unknown) (no (unknown) (unknown) Respiratory Rate (units (unknown) date) 18 unknown) (unknown) (no (unknown) (unknown) Result diagrams: (units (unknown) date) unknown) (unknown) (no (unknown) (unknown) 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 unknown) (unknown) (no (unknown) (unknown) Signed By: (units (unk nown) date) unknown) (unknown) (no (unknown) (unknown) Signed (units (unkno wn) date) unknown) (unknown) (no (unknown) (unknown) Smoking Status: (units (unknown) date) Current some day unknown) smoker (unknown) (no (unknown) (unknown) Social History (units (unknown) date) (Reviewed 10/31/21 unknown) @ 21:00 by GENIE Johnson) (unknown) (no (unknown) (unknown) Sodium 140 (units (unk nown) date) (137-145) mmol/L unknown) (unknown) (no (unknown) (unknown) Stated Complaint: (units (unknown) date) Left chest pain x unknown) 1 week (unknown) (no (unknown) (unknown) Stop: 07/11/22 (units (unknown) date) 20:33 unknown) (unknown) (no (unknown) (unknown) Substance Use (units ( unknown) date) Type: marijuana unknown) (unknown) (no (unknown) (unknown) Surgical History (units (unknown) date) (Reviewed 10/31/21 unknown) @ 21:00 by GENIE Johnson) (unknown) (no (unknown) (unknown) Surgical changes (units (unknown) date) and devices:? unknown) None.? (unknown) (no (unknown) (unknown) TECHNIQUE:? One (units (unknown) date) view of the chest unknown) was acquired.? (unknown) (no (unknown) (unknown) Take 1 capsule by (units (unknown) date) mouth twice a day unknown) for chronic back pain (unknown) (no (unknown) (unknown) Take 1 tablet by (units (unknown) date) mouth twice a day unknown) (unknown) (no (unknown) (unknown) Temperature 97.3 (units (unknown) date) F L 07/11/22 20:25 unknown) (unknown) (no (unknown) (unknown) Temperature 97.3 (units (unknown) date) F L unknown) (unknown) (no (unknown) (unknown) Time Seen by (units (u nknown) date) Provider: 07/11/22 unknown) 20:31 (unknown) (no (unknown) (unknown) Total Bilirubin (units (unknown) date) 0.5 (0.2-1.3) unknown) mg/dL (unknown) (no (unknown) (unknown) Total Creatine (units (unknown) date) Kinase 21 L unknown) (55-170) U/L (unknown) (no (unknown) (unknown) Total Protein 6.9 (units (unknown) date) (6.3-8.2) g/dL unknown) (unknown) (no (unknown) (unknown) Troponin + CK (units ( unknown) date) Cardiac Panel Stat unknown) (unknown) (no (unknown) (unknown) Troponin I < (units (u nknown) date) 0.012 (0.01-0.034) unknown) ng/mL (unknown) (no (unknown) (unknown) Vital Signs - 8 (units (unknown) date) hr unknown) (unknown) (no (unknown) (unknown) Vital Signs (units (un known) date) unknown) (unknown) (no (unknown) (unknown) Vital signs: (units (u nknown) date) unknown) (unknown) (no (unknown) (unknown) WBC 5.7 (units (unkno wn) date) (4.5-11.0) X103/uL unknown) (unknown) (no (unknown) (unknown) XRay Report (units (un known) date) unknown) (unknown) (no (unknown) (unknown) Danika García, (units (unknown) date) PA-C [Primary Care unknown) Provider] (unknown) (no (unknown) (unknown) [Embedded Image (units (unknown) date) Not Available] unknown) (unknown) (no (unknown) (unknown) alcohol intake (units (unknown) date) frequency: unknown) holidays/special occasions only (unknown) (no (unknown) (unknown) alcohol intake: (units (unknown) date) current unknown) (unknown) (no (unknown) (unknown) appear (units (unkno wn) date) unknown) (unknown) (no (unknown) (unknown) gabapentin (units (unk nown) date) AdvReac [place] unknown) Verified 10/16/21 09:17 (unknown) (no (unknown) (unknown) household (units (unkn own) date) members: spouse, unknown) children, friend(s) and other (unknown) (no (unknown) (unknown) metoprolol (units (unk nown) date) tartrate 50 mg unknown) tablet 50 mg PO BID 10/15/21 10/15/21 (unknown) (no (unknown) (unknown) metoprolol (units (unk nown) date) tartrate 50 mg unknown) tablet (unknown) (no (unknown) (unknown) morphine Allergy (units (unknown) date) Nightmare Verified unknown) 10/16/21 09:17 (unknown) (no (unknown) (unknown) pregabalin 300 mg (units (unknown) date) capsule (Lyrica) unknown) 300 mg PO BID 10/15/21 10/15/21 (unknown) (no (unknown) (unknown) pregabalin (units (unk nown) date) [Lyrica] 300 mg unknown) capsule (unknown) (no (unknown) (unknown) unremarkable.? (units (unknown) date) unknown) Result panel 1066 (unknown) (no (unknown) (unknown) (no value) (units (unk nown) date) unknown) (unknown) (no (unknown) (unknown) <Electronically (units (unknown) date) signed by Stephan unknown) Adis Issa.> (unknown) (no (unknown) (unknown) (Lidoderm) (units (unk nown) date) unknown) (unknown) (no (unknown) (unknown) *If you do not (units (unknown) date) have a primary unknown) care provider please contact the [facility] (unknown) (no (unknown) (unknown) *Please continue (units (unknown) date) to take your unknown) regular medications as directed. (unknown) (no (unknown) (unknown) *Please follow up (units (unknown) date) with your primary unknown) care provider in 2-3 days, call for an (unknown) (no (unknown) (unknown) *Return to (units (unk nown) date) Emergency unknown) Department if you should have any new, worsening or (unknown) (no (unknown) (unknown) *What to do: (units (u nknown) date) unknown) (unknown) (no (unknown) (unknown) *You have been (units (unknown) date) diagnosed with unknown) [chest wall pain. As we discussed your history (unknown) (no (unknown) (unknown) [id number] (units (unkno wn) date) unknown) (unknown) (no (unknown) (unknown) 1 patch TOP DAILY (units (unknown) date) Qty: 15 0RF unknown) (unknown) (no (unknown) (unknown) 1.? No acute (units (u nknown) date) cardiopulmonary unknown) disease. (unknown) (no (unknown) (unknown) 07/11/22 07/11/22 (units (unknown) date) Range/Units unknown) (unknown) (no (unknown) (unknown) 07/11/22 20:39 (units (unknown) date) unknown) (unknown) (no (unknown) (unknown) 07/11/22 20:50 (units (unknown) date) unknown) (unknown) (no (unknown) (unknown) 07/11/22 (units (unkno wn) date) unknown) (unknown) (no (unknown) (unknown) 07/12/22 0144 (units ( unknown) date) unknown) (unknown) (no (unknown) (unknown) 12 point review (units (unknown) date) of systems is unknown) negative except for those stated above (unknown) (no (unknown) (unknown) [address] [place] [address] (units (unknown) date) unknown) (unknown) (no (unknown) (unknown) 20:25 07/11/22 (units (unknown) date) unknown) (unknown) (no (unknown) (unknown) 20:50 20:50 (units (un known) date) unknown) (unknown) (no (unknown) (unknown) 20:53 07/11/22 (units (unknown) date) unknown) (unknown) (no (unknown) (unknown) 21:00 07/11/22 (units (unknown) date) unknown) (unknown) (no (unknown) (unknown) 21:00 (units (unkno wn) date) unknown) (unknown) (no (unknown) (unknown) 21:30 07/11/22 (units (unknown) date) unknown) (unknown) (no (unknown) (unknown) 21:30 (units (unkno wn) date) unknown) (unknown) (no (unknown) (unknown) 22:00 07/11/22 (units (unknown) date) unknown) (unknown) (no (unknown) (unknown) 22:30 07/11/22 (units (unknown) date) unknown) (unknown) (no (unknown) (unknown) 22:30 (units (unkno wn) date) unknown) (unknown) (no (unknown) (unknown) 23:00 07/11/22 (units (unknown) date) unknown) (unknown) (no (unknown) (unknown) 23:30 (units (unkno wn) date) unknown) (unknown) (no (unknown) (unknown) 300 mg PO BID (units ( unknown) date) unknown) (unknown) (no (unknown) (unknown) 47-year-old male (units (unknown) date) smoker ?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 (units (unkno wn) date) unknown) (unknown) (no (unknown) (unknown) ALT 19 (<50) IU/L (units (unknown) date) unknown) (unknown) (no (unknown) (unknown) AST 19 (17-59) (units (unknown) date) IU/L unknown) (unknown) (no (unknown) (unknown) Accession Number: (units (unknown) date) [id number] ?? unknown) (unknown) (no (unknown) (unknown) Acct:[id number] (units (unknown) date) unknown) (unknown) (no (unknown) (unknown) Activity (units (unkno wn) date) Restrictions/Addit unknown) ional Instructions: (unknown) (no (unknown) (unknown) Age/Sex: 47 / M (units (unknown) date) unknown) (unknown) (no (unknown) (unknown) Albumin 3.9 (units (un known) date) (3.5-5.0) g/dL unknown) (unknown) (no (unknown) (unknown) Albumin/Globulin (units (unknown) date) Ratio 1.3 unknown) (1.0-2.8) (unknown) (no (unknown) (unknown) Alkaline (units (unkno wn) date) Phosphatase 84 unknown) (38-126) U/L (unknown) (no (unknown) (unknown) Allergies (units (unkn own) date) unknown) (unknown) (no (unknown) (unknown) Allergy/AdvReac (units (unknown) date) Type Severity unknown) Reaction Status Date / Time (unknown) (no (unknown) (unknown) MELVINA Deng (units ( unknown) date) [id number] unknown) (unknown) (no (unknown) (unknown) Anterior chest (units (unknown) date) wall pain unknown) (unknown) (no (unknown) (unknown) Approved by: (units (u nknown) date) hemal Osborne M.D. on 07/11/2022 at 21:50? (unknown) (no (unknown) (unknown) BACK: Nontender (units (unknown) date) without deformity unknown) or crepitance. No flank tenderness. (unknown) (no (unknown) (unknown) BUN 32 H (9-20) (units (unknown) date) mg/dL unknown) (unknown) (no (unknown) (unknown) BUN/Creatinine (units (unknown) date) Ratio 39.5 H unknown) (6-22) (unknown) (no (unknown) (unknown) Back pain (units (unkn own) date) unknown) (unknown) (no (unknown) (unknown) Baso # (Auto) 0 (units (unknown) date) (0-100) /uL unknown) (unknown) (no (unknown) (unknown) Baso % (Auto) 0.7 (units (unknown) date) (0-2) % unknown) (unknown) (no (unknown) (unknown) Blood Pressure (units (unknown) date) 123/86 07/11/22 unknown) 20:25 (unknown) (no (unknown) (unknown) Blood Pressure (units (unknown) date) 123/86 128/92 H unknown) (unknown) (no (unknown) (unknown) Blood Pressure (units (unknown) date) 129/91 H unknown) (unknown) (no (unknown) (unknown) Blood Pressure (units (unknown) date) 130/85 120/83 unknown) (unknown) (no (unknown) (unknown) Blood Pressure (units (unknown) date) 136/93 H unknown) (unknown) (no (unknown) (unknown) Blood Pressure (units (unknown) date) unknown) (unknown) (no (unknown) (unknown) Bones and chest (units (unknown) date) wall:? No unknown) suspicious bony lesions.? Overlying soft tissues (unknown) (no (unknown) (unknown) C-Reactive (units (unk nown) date) Protein 1.9 H unknown) (<1.0) mg/dL (unknown) (no (unknown) (unknown) C-Reactive (units (unk nown) date) Protein Quant Stat unknown) (unknown) (no (unknown) (unknown) CARDIOVASCULAR: (units (unknown) date) Regular rate and unknown) rhythm without murmurs, gallops, or rubs. Left (unknown) (no (unknown) (unknown) CARDIOVASCULAR: (units (unknown) date) See HPI unknown) (unknown) (no (unknown) (unknown) CK-MB (CK-2) Rel (units (unknown) date) Index TNP unknown) (unknown) (no (unknown) (unknown) CK-MB (CK-2) TNP (units (unknown) date) unknown) (unknown) (no (unknown) (unknown) COMPARISON:? (units (u nknown) date) [facility] 1 [facility], 06/26/2022, 15:13. (unknown) (no (unknown) (unknown) Calcium 9.1 (units (un known) date) (8.4-10.2) mg/dL unknown) (unknown) (no (unknown) (unknown) Carbon Dioxide 26 (units (unknown) date) (22-32) mmol/L unknown) (unknown) (no (unknown) (unknown) Chest [XR chest (units (unknown) date) 1V] Stat unknown) (unknown) (no (unknown) (unknown) Chest x-ray: (units (u nknown) date) unknown) (unknown) (no (unknown) (unknown) Chief Complaint: (units (unknown) date) Chest Pain unknown) (unknown) (no (unknown) (unknown) Chloride 106 (units (u nknown) date) (98-107) mmol/L unknown) (unknown) (no (unknown) (unknown) Clinical (units (unkno wn) date) Impression: unknown) (unknown) (no (unknown) (unknown) Complete Blood (units (unknown) date) Count AUTO DIFF unknown) Stat (unknown) (no (unknown) (unknown) Comprehensive (units ( unknown) date) Metabolic Panel unknown) Stat (unknown) (no (unknown) (unknown) Course (units (unkno wn) date) unknown) (unknown) (no (unknown) (unknown) Creatinine 0.81 (units (unknown) date) (0.66-1.25) mg/dL unknown) (unknown) (no (unknown) (unknown) : 1975 (units (unknown) date) Acct:[id number] unknown) (unknown) (no (unknown) (unknown) : 1975 (units (unknown) date) unknown) (unknown) (no (unknown) (unknown) Date of Service: (units (unknown) date) 07/11/22 unknown) (unknown) (no (unknown) (unknown) Departure (units (unkn own) date) unknown) (unknown) (no (unknown) (unknown) Dictated by: (units (u nknown) date) hemal Osborne M.D. on 07/11/2022 at 21:49 ? ? (unknown) (no (unknown) (unknown) Discharge Plan (units (unknown) date) unknown) (unknown) (no (unknown) (unknown) Discontinued (units (u nknown) date) Medications unknown) (unknown) (no (unknown) (unknown) Documented By: (units (unknown) date) ADK unknown) (unknown) (no (unknown) (unknown) Documented By: BS (units (unknown) date) unknown) (unknown) (no (unknown) (unknown) ED Orders (units (unkn own) date) unknown) (unknown) (no (unknown) (unknown) ENT: Nose without (units (unknown) date) bleeding, purulent unknown) drainage. Throat without erythema, (unknown) (no (unknown) (unknown) ER Physician: (units ( unknown) date) Stephan Issa D.O. unknown) (unknown) (no (unknown) (unknown) ESR 18 H (0-15) (units (unknown) date) MM/HR unknown) (unknown) (no (unknown) (unknown) EYES: Pupils (units (u nknown) date) equal round and unknown) reactive. Extraocular motions intact. No scleral (unknown) (no (unknown) (unknown) Emergency Report (units (unknown) date) unknown) (unknown) (no (unknown) (unknown) Eos # (Auto) 200 (units (unknown) date) (0-450) /uL unknown) (unknown) (no (unknown) (unknown) Eos % (Auto) 4.1 (units (unknown) date) H (2-4) % unknown) (unknown) (no (unknown) (unknown) Erythrocyte (units (un known) date) Sedimentation Rate unknown) Stat (unknown) (no (unknown) (unknown) Estimated GFR > (units (unknown) date) 60 (>60) mL/min unknown) (unknown) (no (unknown) (unknown) Exam Narrative: (units (unknown) date) unknown) (unknown) (no (unknown) (unknown) Exam (units (unkno wn) date) unknown) (unknown) (no (unknown) (unknown) FINDINGS:? (units (unk nown) date) unknown) (unknown) (no (unknown) (unknown) Family History (units (unknown) date) (Reviewed 07/12/22 unknown) @ 01:43 by Stephan Issa DO) (unknown) (no (unknown) (unknown) Father CVA (units (unk nown) date) (cerebral vascular unknown) accident) (unknown) (no (unknown) (unknown) Functional (units (unk nown) date) paraparesis unknown) (unknown) (no (unknown) (unknown) GASTROINTESTINAL: (units (unknown) date) Abdomen soft, unknown) non-tender, nondistended. (unknown) (no (unknown) (unknown) GASTROINTESTINAL: (units (unknown) date) Denies nausea, unknown) vomiting, abdominal pain, diarrhea, (unknown) (no (unknown) (unknown) GENERAL: Denies (units (unknown) date) chills, fatigue, unknown) malaise, fever, sweats. (unknown) (no (unknown) (unknown) GENERAL: [47] (units ( unknown) date) year old patient unknown) appears stated age. Well-developed patient, in (unknown) (no (unknown) (unknown) : Denies (units (unk nown) date) dysuria, unknown) frequency, incontinence, hematuria, urinary retention. (unknown) (no (unknown) (unknown) General (units (unkno wn) date) unknown) (unknown) (no (unknown) (unknown) Globulin 3.0 (units (u nknown) date) (1.7-4.1) g/dL unknown) (unknown) (no (unknown) (unknown) Glucose 94 (units (unk nown) date) (70-100) mg/dL unknown) (unknown) (no (unknown) (unknown) HEAD: Atraumatic. (units (unknown) date) Normocephalic. unknown) (unknown) (no (unknown) (unknown) HEART Score (units (un known) date) unknown) (unknown) (no (unknown) (unknown) HEENT: Denies (units ( unknown) date) sinus pain, ear unknown) pain, sore throat, difficulty swallowing, (unknown) (no (unknown) (unknown) HPI - Chest Pain (units (unknown) date) unknown) (unknown) (no (unknown) (unknown) HPI narrative: (units (unknown) date) unknown) (unknown) (no (unknown) (unknown) Hct 38.7 L (units (unk nown) date) (41-53) % unknown) (unknown) (no (unknown) (unknown) Heart Score Age: (units (unknown) date) 45-64 years old unknown) (unknown) (no (unknown) (unknown) Heart Score EKG: (units (unknown) date) Normal unknown) (unknown) (no (unknown) (unknown) Heart Score (units (un known) date) Total: 1 unknown) (unknown) (no (unknown) (unknown) Heart Score (units (un known) date) history: Slightly unknown) Suspicious (unknown) (no (unknown) (unknown) Heart Score risk (units (unknown) date) factors: No known unknown) risk factors (unknown) (no (unknown) (unknown) Heart Score (units (un known) date) troponin: < or = unknown) to normal limit (unknown) (no (unknown) (unknown) Hgb 12.9 L (units (unk nown) date) (13.5-17.5) g/dL unknown) (unknown) (no (unknown) (unknown) History of (units (unk nown) date) Present Illness unknown) (unknown) (no (unknown) (unknown) History of spinal (units (unknown) date) surgery unknown) (unknown) (no (unknown) (unknown) History of (units (unk nown) date) tonsillectomy unknown) (unknown) (no (unknown) (unknown) Home Medications (units (unknown) date) unknown) (unknown) (no (unknown) (unknown) Hypertension (units (u nknown) date) unknown) (unknown) (no (unknown) (unknown) IMPRESSION:? (units (u nknown) date) unknown) (unknown) (no (unknown) (unknown) INDICATIONS:? (units ( unknown) date) left side chest unknown) pain (unknown) (no (unknown) (unknown) Imaging Data (units (u nknown) date) unknown) (unknown) (no (unknown) (unknown) Initial Vital (units ( unknown) date) Signs unknown) (unknown) (no (unknown) (unknown) Initial Vital (units ( unknown) date) Signs: unknown) (unknown) (no (unknown) (unknown) Instructions: DI (units (unknown) date) for Atypical Chest unknown) Pain (unknown) (no (unknown) (unknown) [facility] (units (unknown) date) [address] unknown) [place] [address] (unknown) (no (unknown) (unknown) [facility] (units (unknown) date) unknown) (unknown) (no (unknown) (unknown) Lab Data (units (unkno wn) date) unknown) (unknown) (no (unknown) (unknown) Lab Results (units (un known) date) unknown) (unknown) (no (unknown) (unknown) Label Comments: (units (unknown) date) unknown) (unknown) (no (unknown) (unknown) Labs: (units (unkno wn) date) unknown) (unknown) (no (unknown) (unknown) Last Admin: (units (un known) date) 07/11/22 21:00 unknown) Dose: 1 each (unknown) (no (unknown) (unknown) Last Admin: (units (un known) date) 07/11/22 23:27 unknown) Dose: 1 tab (unknown) (no (unknown) (unknown) Lidocaine (units (unkn own) date) (Lidocaine Patch 1 unknown) Each Adh..Patch) 1 each TOP NOW ONE (unknown) (no (unknown) (unknown) Loc: ED (units (unkno wn) date) unknown) (unknown) (no (unknown) (unknown) Lungs and (units (unkn own) date) pleura:? Lungs are unknown) clear.? No pleural effusions or pneumothorax.? (unknown) (no (unknown) (unknown) Lymph # (Auto) (units (unknown) date) 1100 (2964-3440) unknown) /uL (unknown) (no (unknown) (unknown) Lymph % (Auto) (units (unknown) date) 19.9 L (25-40) % unknown) (unknown) (no (unknown) (unknown) MCH 27.4 (26-34) (units (unknown) date) PG unknown) (unknown) (no (unknown) (unknown) MCHC 33.3 (30-36) (units (unknown) date) % unknown) (unknown) (no (unknown) (unknown) MCV 82.2 (80-100) (units (unknown) date) fL unknown) (unknown) (no (unknown) (unknown) MDM - Chest Pain (units (unknown) date) unknown) (unknown) (no (unknown) (unknown) MDM Narrative (units ( unknown) date) unknown) (unknown) (no (unknown) (unknown) MR#: [id number] (units (unknown) date) unknown) (unknown) (no (unknown) (unknown) MUSCULOSKELETAL: (units (unknown) date) denies weakness, unknown) joint pain, or bony pain (unknown) (no (unknown) (unknown) Mediastinum:? (units ( unknown) date) Mediastinal unknown) contours appear normal.? Heart size is normal.? (unknown) (no (unknown) (unknown) Medical History (units (unknown) date) (Reviewed 07/12/22 unknown) @ 01:43 by Stephan Issa DO) (unknown) (no (unknown) (unknown) Medical decision (units (unknown) date) making narrative: unknown) (unknown) (no (unknown) (unknown) Medication (units (unk nown) date) Instructions unknown) Recorded Confirmed (unknown) (no (unknown) (unknown) Medication (units (unk nown) date) Instructions unknown) Recorded (unknown) (no (unknown) (unknown) [place] # (Auto) 300 (units (unknown) date) (0-900) /uL unknown) (unknown) (no (unknown) (unknown) [place] % (Auto) 5.5 (units (unknown) date) (3-14) % unknown) (unknown) (no (unknown) (unknown) Mother Myocardial (units (unknown) date) infarct unknown) (unknown) (no (unknown) (unknown) Multiple causes (units (unknown) date) of chest pain unknown) considered including NM, PE, pneumothorax, (unknown) (no (unknown) (unknown) NECK: Trachea (units ( unknown) date) midline. Non unknown) tender (unknown) (no (unknown) (unknown) NEURO: AOx3. (units (u nknown) date) unknown) (unknown) (no (unknown) (unknown) NEUROLOGIC: (units (un known) date) Denies weakness, unknown) headache, numbness, change in speech, confusion, (unknown) (no (unknown) (unknown) Narrative (units (unkn own) date) unknown) (unknown) (no (unknown) (unknown) Narrative: (units (unk nown) date) unknown) (unknown) (no (unknown) (unknown) Neurogenic pain (units (unknown) date) unknown) (unknown) (no (unknown) (unknown) Neut # (Auto) (units ( unknown) date) 4000 (1645-6772) unknown) /uL (unknown) (no (unknown) (unknown) Neut % (Auto) (units ( unknown) date) 69.8 (50-75) % unknown) (unknown) (no (unknown) (unknown) New (units (unkno wn) date) unknown) (unknown) (no (unknown) (unknown) No Action (units (unkn own) date) unknown) (unknown) (no (unknown) (unknown) Ordered: (units (unkno wn) date) unknown) (unknown) (no (unknown) (unknown) Ordering (units (unkno wn) date) Provider: unknown) Stephan Issa D.O. (unknown) (no (unknown) (unknown) Orders (units (unkno wn) date) unknown) (unknown) (no (unknown) (unknown) Oxycodone/Acetami (units (unknown) date) nophen unknown) (Oxycodone/Acetami nophen 5/325 Tablet) 1 tab PO NOW ONE (unknown) (no (unknown) (unknown) Oxygen Delivery (units (unknown) date) Method 07/11/22 unknown) 20:25 (unknown) (no (unknown) (unknown) Oxygen Delivery (units (unknown) date) Method Room Air unknown) (unknown) (no (unknown) (unknown) Oxygen Delivery (units (unknown) date) Method unknown) (unknown) (no (unknown) (unknown) PROCEDURE:? XR (units (unknown) date) CHEST 1V unknown) (unknown) (no (unknown) (unknown) PSYCHIATRIC: No (units (unknown) date) concerning unknown) psychosocial issues. (unknown) (no (unknown) (unknown) Patient (units (unkno wn) date) Disposition: Home unknown) (unknown) (no (unknown) (unknown) Patient History (units (unknown) date) unknown) (unknown) (no (unknown) (unknown) Patient: Eleazar (units ( unknown) date) Yann Jones MR#: unknown) M00 (unknown) (no (unknown) (unknown) Patient: Eleazar (units ( unknown) date) Yann Jones unknown) (unknown) (no (unknown) (unknown) Plt Count 192 (units ( unknown) date) (150-400) X103/uL unknown) (unknown) (no (unknown) (unknown) Potassium 4.2 (units ( unknown) date) (3.4-5.1) mmol/L unknown) (unknown) (no (unknown) (unknown) Prescriptions: (units (unknown) date) unknown) (unknown) (no (unknown) (unknown) Previous Rx's (units ( unknown) date) unknown) (unknown) (no (unknown) (unknown) Procedure: XR (units ( unknown) date) chest 1V unknown) (unknown) (no (unknown) (unknown) Pulse Oximetry 95 (units (unknown) date) unknown) (unknown) (no (unknown) (unknown) Pulse Oximetry 96 (units (unknown) date) 95 unknown) (unknown) (no (unknown) (unknown) Pulse Oximetry 96 (units (unknown) date) unknown) (unknown) (no (unknown) (unknown) Pulse Oximetry 97 (units (unknown) date) 07/11/22 20:25 unknown) (unknown) (no (unknown) (unknown) Pulse Oximetry 97 (units (unknown) date) 95 unknown) (unknown) (no (unknown) (unknown) Pulse Rate 85 (units ( unknown) date) unknown) (unknown) (no (unknown) (unknown) Pulse Rate 86 87 (units (unknown) date) unknown) (unknown) (no (unknown) (unknown) Pulse Rate 86 (units ( unknown) date) unknown) (unknown) (no (unknown) (unknown) Pulse Rate 90 87 (units (unknown) date) unknown) (unknown) (no (unknown) (unknown) Pulse Rate 98 H (units (unknown) date) 07/11/22 20:25 unknown) (unknown) (no (unknown) (unknown) Pulse Rate 98 H (units (unknown) date) 90 unknown) (unknown) (no (unknown) (unknown) RBC 4.71 (units (unkno wn) date) (4.5-5.9) X106/uL unknown) (unknown) (no (unknown) (unknown) RDW 17.7 H (units (unk nown) date) (11.6-14.8) % unknown) (unknown) (no (unknown) (unknown) RESPIRATORY: Clear (units (unknown) date) to auscultation. unknown) Breath sounds equal bilaterally. No wheezes, (unknown) (no (unknown) (unknown) RESPIRATORY: (units (u nknown) date) Denies dyspnea, unknown) cough, wheezing, hemoptysis, sputum. (unknown) (no (unknown) (unknown) Radiologist's (units ( unknown) date) Impression: unknown) (unknown) (no (unknown) (unknown) Referrals: (units (unk nown) date) unknown) (unknown) (no (unknown) (unknown) Related Data (units (u nknown) date) unknown) (unknown) (no (unknown) (unknown) Resource line at (units (unknown) date) [phone]. They unknown) will ask some questions about your medical (unknown) (no (unknown) (unknown) Respiratory Rate (units (unknown) date) 11 L 16 unknown) (unknown) (no (unknown) (unknown) Respiratory Rate (units (unknown) date) 16 unknown) (unknown) (no (unknown) (unknown) Respiratory Rate (units (unknown) date) 17 17 unknown) (unknown) (no (unknown) (unknown) Respiratory Rate (units (unknown) date) 18 07/11/22 20:25 unknown) (unknown) (no (unknown) (unknown) Respiratory Rate (units (unknown) date) 18 13 unknown) (unknown) (no (unknown) (unknown) Result diagrams: (units (unknown) date) unknown) (unknown) (no (unknown) (unknown) Review of Systems (units (unknown) date) unknown) (unknown) (no (unknown) (unknown) Rx Instructions: (units (unknown) date) unknown) (unknown) (no (unknown) (unknown) SKIN: Denies (units (u nknown) date) rash, skin unknown) lesions, or other (unknown) (no (unknown) (unknown) SKIN: No rash or (units (unknown) date) erythema of unknown) visible areas (unknown) (no (unknown) (unknown) 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 unknown) (unknown) (no (unknown) (unknown) Scores (units (unkno wn) date) unknown) (unknown) (no (unknown) (unknown) Signed By: (units (unk nown) date) unknown) (unknown) (no (unknown) (unknown) Signed (units (unkno wn) date) unknown) (unknown) (no (unknown) (unknown) Smoking Status: (units (unknown) date) Current some day unknown) smoker (unknown) (no (unknown) (unknown) Social History (units (unknown) date) (Reviewed 07/12/22 unknown) @ 01:43 by Stephan Issa DO) (unknown) (no (unknown) (unknown) Sodium 140 (units (unk nown) date) (137-145) mmol/L unknown) (unknown) (no (unknown) (unknown) Stated Complaint: (units (unknown) date) Left chest pain x unknown) 1 week (unknown) (no (unknown) (unknown) Stop: 07/11/22 (units (unknown) date) 20:33 unknown) (unknown) (no (unknown) (unknown) Stop: 07/11/22 (units (unknown) date) 23:12 unknown) (unknown) (no (unknown) (unknown) Substance Use (units ( unknown) date) Type: marijuana unknown) (unknown) (no (unknown) (unknown) Surgical History (units (unknown) date) (Reviewed 07/12/22 unknown) @ 01:43 by Stephan Issa DO) (unknown) (no (unknown) (unknown) Surgical changes (units (unknown) date) and devices:? unknown) None.? (unknown) (no (unknown) (unknown) TECHNIQUE:? One (units (unknown) date) view of the chest unknown) was acquired.? (unknown) (no (unknown) (unknown) Take 1 capsule by (units (unknown) date) mouth twice a day unknown) for chronic back pain (unknown) (no (unknown) (unknown) Take 1 tablet by (units (unknown) date) mouth twice a day unknown) (unknown) (no (unknown) (unknown) Temperature 97.3 (units (unknown) date) F L 07/11/22 20:25 unknown) (unknown) (no (unknown) (unknown) Temperature 97.3 (units (unknown) date) F L unknown) (unknown) (no (unknown) (unknown) Temperature (units (un known) date) unknown) (unknown) (no (unknown) (unknown) Time Seen by (units (u nknown) date) Provider: 07/11/22 unknown) 20:31 (unknown) (no (unknown) (unknown) Total Bilirubin (units (unknown) date) 0.5 (0.2-1.3) unknown) mg/dL (unknown) (no (unknown) (unknown) Total Creatine (units (unknown) date) Kinase 21 L unknown) (55-170) U/L (unknown) (no (unknown) (unknown) Total Protein 6.9 (units (unknown) date) (6.3-8.2) g/dL unknown) (unknown) (no (unknown) (unknown) Troponin + CK (units ( unknown) date) Cardiac Panel Stat unknown) (unknown) (no (unknown) (unknown) Troponin I < (units (u nknown) date) 0.012 (0.01-0.034) unknown) ng/mL (unknown) (no (unknown) (unknown) Vital Signs - 8 (units (unknown) date) hr unknown) (unknown) (no (unknown) (unknown) Vital Signs (units (un known) date) unknown) (unknown) (no (unknown) (unknown) Vital signs: (units (u nknown) date) unknown) (unknown) (no (unknown) (unknown) WBC 5.7 (units (unkno wn) date) (4.5-11.0) X103/uL unknown) (unknown) (no (unknown) (unknown) XRay Report (units (un known) date) unknown) (unknown) (no (unknown) (unknown) Danika García, (units (unknown) date) PA-C [Primary Care unknown) Provider] (unknown) (no (unknown) (unknown) [Embedded Image (units (unknown) date) Not Available] unknown) (unknown) (no (unknown) (unknown) alcohol intake (units (unknown) date) frequency: unknown) holidays/special occasions only (unknown) (no (unknown) (unknown) alcohol intake: (units (unknown) date) current unknown) (unknown) (no (unknown) (unknown) and physical exam (units (unknown) date) are reassuring and unknown) there is no evidence of heart attack, (unknown) (no (unknown) (unknown) and stabbing (units (un known) date) reproducible pain unknown) to palpation, no occlusive findings on EKG, chest (unknown) (no (unknown) (unknown) anterior chest (units (unknown) date) tender to unknown) palpation, no swelling, erythema, warmth or crepitance (unknown) (no (unknown) (unknown) appear (units (unkno wn) date) unknown) (unknown) (no (unknown) (unknown) appointment. Let (units (unknown) date) them know you were unknown) seen in the Emergency Department and that we (unknown) (no (unknown) (unknown) ask that you be (units (unknown) date) seen in follow up. unknown) We will electronically transmit a record of (unknown) (no (unknown) (unknown) breath, fever or (units (unknown) date) chills. He is not unknown) dizzy nor weak or lightheaded. Denies (unknown) (no (unknown) (unknown) concerning (units (unk nown) date) symptoms unknown) (unknown) (no (unknown) (unknown) constipation, (units ( unknown) date) melena. unknown) (unknown) (no (unknown) (unknown) diaphoresis, no (units (unknown) date) provocation with unknown) exertion, and no vomiting. Patient has sharp (unknown) (no (unknown) (unknown) dizziness. (units (unk nown) date) unknown) (unknown) (no (unknown) (unknown) gabapentin (units (unk nown) date) AdvReac [place]akiness unknown) Verified 10/16/21 09:17 (unknown) (no (unknown) (unknown) history and help (units (unknown) date) get you set up unknown) with a doctor in the community. (unknown) (no (unknown) (unknown) household (units (unkn own) date) members: spouse, unknown) children, friend(s) and other (unknown) (no (unknown) (unknown) icterus. No (units (un known) date) injection or unknown) drainage. (unknown) (no (unknown) (unknown) leave on most (units ( unknown) date) painful area for unknown) 12 hrs (unknown) (no (unknown) (unknown) lidocaine 5 % (units ( unknown) date) topical patch 1 unknown) patch topical DAILY #15 ea 07/11/22 (unknown) (no (unknown) (unknown) lidocaine (units (unkn own) date) [Lidoderm] 5 % unknown) adhesive patch,medicated (unknown) (no (unknown) (unknown) metoprolol (units (unk nown) date) tartrate 50 mg unknown) tablet 50 mg PO BID 10/15/21 10/15/21 (unknown) (no (unknown) (unknown) metoprolol (units (unk nown) date) tartrate 50 mg unknown) tablet (unknown) (no (unknown) (unknown) mild distress. (units (unknown) date) unknown) (unknown) (no (unknown) (unknown) morphine Allergy (units (unknown) date) Nightmare Verified unknown) 10/16/21 09:17 (unknown) (no (unknown) (unknown) nausea, vomiting (units (unknown) date) or diarrhea. He unknown) states Tylenol does not work and he has not (unknown) (no (unknown) (unknown) pneumonia, aortic (units (unknown) date) dissection, and unknown) pleurisy. Patient reports no radiation, no (unknown) (no (unknown) (unknown) pneumonia, rib (units (unknown) date) fracture or other] unknown) (unknown) (no (unknown) (unknown) pregabalin 300 mg (units (unknown) date) capsule (Lyrica) unknown) 300 mg PO BID 10/15/21 10/15/21 (unknown) (no (unknown) (unknown) pregabalin (units (unk nown) date) [Lyrica] 300 mg unknown) capsule (unknown) (no (unknown) (unknown) presses, takes a (units (unknown) date) deep breath or unknown) moves his left arm. He denies any shortness of (unknown) (no (unknown) (unknown) rales, or (units (unkn own) date) rhonchi. unknown) (unknown) (no (unknown) (unknown) seizures, (units (unkn own) date) incoordination. unknown) (unknown) (no (unknown) (unknown) that has been (units ( unknown) date) present for about unknown) the past week. He states that it hurts when he (unknown) (no (unknown) (unknown) today's note if (units (unknown) date) your PCP is in our unknown) system (unknown) (no (unknown) (unknown) tonsillar (units (unkn own) date) hypertrophy or unknown) exudate. Airway patent. (unknown) (no (unknown) (unknown) tried anything (units (unknown) date) else. He denies unknown) any trauma or injury. He denies any overuse (unknown) (no (unknown) (unknown) type injury (units (un known) date) unknown) (unknown) (no (unknown) (unknown) unremarkable.? (units (unknown) date) unknown) (unknown) (no (unknown) (unknown) with (units (unkno wn) date) this?presents by unknown) EMS for evaluation of a sharp left anterior chest pain (unknown) (no (unknown) (unknown) x-ray clear, (units (u nknown) date) troponin negative. unknown) Result panel [id number] (unknown) (no (unknown) (unknown) (no value) (units (unk nown) date) unknown) (unknown) (no (unknown) (unknown) [id number] (units (unkno wn) date) unknown) (unknown) (no (unknown) (unknown) 1. No evidence (units (unknown) date) acute fracture or unknown) dislocation. (unknown) (no (unknown) (unknown) 1. Remote (units (unkn own) date) posterior unknown) laminectomy at T8 and T9. (unknown) (no (unknown) (unknown) 07/13/22 (units (unkno wn) date) unknown) (unknown) (no (unknown) (unknown) [address] [place] [address] (units (unknown) date) unknown) (unknown) (no (unknown) (unknown) 2. No canal (units (un known) date) stenosis. unknown) (unknown) (no (unknown) (unknown) 2. No evidence of (units (unknown) date) acute thoracic unknown) fracture or dislocation. (unknown) (no (unknown) (unknown) 3. Bilateral (units (u nknown) date) facet hypertrophy unknown) at L5-S1 results in foraminal stenosis. (unknown) (no (unknown) (unknown) 3. Question (units (un known) date) dependent change unknown) versus very mild unilateral pulmonary edema. (unknown) (no (unknown) (unknown) 4. Probable (units (un known) date) sebaceous cyst unknown) overlying T10. (unknown) (no (unknown) (unknown) Accession Number: (units (unknown) date) [id number] unknown) (unknown) (no (unknown) (unknown) Accession Number: (units (unknown) date) [id number] unknown) (unknown) (no (unknown) (unknown) Accession Number: (units (unknown) date) [id number] unknown) (unknown) (no (unknown) (unknown) Accession Number: (units (unknown) date) [id number] unknown) (unknown) (no (unknown) (unknown) Age/Sex: 47 / M (units (unknown) date) Date of Service: unknown) (unknown) (no (unknown) (unknown) [place], [place] (units ( unknown) date) [id number] unknown) (unknown) (no (unknown) (unknown) Approved by: (units (u nknown) date) Gerry Mondragon unknown) Marcial on 07/13/2022 at 8:00 (unknown) (no (unknown) (unknown) Approved by: (units (u nknown) date) Gerry Mondragon, daryl) Marcial on 07/13/2022 at 8:05 (unknown) (no (unknown) (unknown) Approved by: (units (u nknown) date) Zaid Medel M.D. unknown) on 07/13/2022 at 7:42 (unknown) (no (unknown) (unknown) Approved by: (units (u nknown) date) Zaid Medel M.D. unknown) on 07/13/2022 at 7:46 (unknown) (no (unknown) (unknown) Bones: No (units (unkn own) date) fractures or unknown) dislocations. Visualized superior ribs are intact. (unknown) (no (unknown) (unknown) Bones: There is (units (unknown) date) normal bony unknown) alignment. No acute vertebral body compression (unknown) (no (unknown) (unknown) Bones: There is (units (unknown) date) normal overall unknown) bony alignment. Remote laminectomy at T8 and (unknown) (no (unknown) (unknown) Brain: No midline (units (unknown) date) shift. No unknown) intracranial masses or hemorrhage. [place]-white (unknown) (no (unknown) (unknown) COMPARISON: (units (un known) date) [facility], unknown) CT, CT THORACIC SPINE WO CON, 07/13/2022, 6:16. (unknown) (no (unknown) (unknown) COMPARISON: None. (units (unknown) date) unknown) (unknown) (no (unknown) (unknown) CSF spaces: Basal (units (unknown) date) cisterns are unknown) patent. No extra-axial fluid collections. (unknown) (no (unknown) (unknown) CT Scan Report (units (unknown) date) unknown) (unknown) (no (unknown) (unknown) Comment: Final (units (unknown) date) report is unknown) concordant with preliminary interpretation provided by (unknown) (no (unknown) (unknown) : 1975 (units (unknown) date) Acct:[id number] unknown) (unknown) (no (unknown) (unknown) Dictated by: (units (u nknown) date) daryl Rosario) Marcial on 07/13/2022 at 7:57 (unknown) (no (unknown) (unknown) Dictated by: (units (u nknown) date) Gerry Mondragon unknown) Marcial on 07/13/2022 at 8:00 (unknown) (no (unknown) (unknown) Dictated by: (units (u nknown) date) Zaid Medel M.D. unknown) on 07/13/2022 at 7:40 (unknown) (no (unknown) (unknown) Dictated by: (units (u nknown) date) Zaid Medel M.D. unknown) on 07/13/2022 at 7:42 (unknown) (no (unknown) (unknown) FINDINGS: (units (unkn own) date) unknown) (unknown) (no (unknown) (unknown) IMPRESSION: (units (un known) date) unknown) (unknown) (no (unknown) (unknown) INDICATIONS: fall (units (unknown) date) with head injury unknown) (unknown) (no (unknown) (unknown) INDICATIONS: fall (units (unknown) date) with midline back unknown) pain (unknown) (no (unknown) (unknown) INDICATIONS: fall (units (unknown) date) with neck pain unknown) (unknown) (no (unknown) (unknown) Image quality: (units (unknown) date) Excellent. unknown) (unknown) (no (unknown) (unknown) Image quality: (units (unknown) date) Good. Motion unknown) artifact at the level of C6. (unknown) (no (unknown) (unknown) [facility] (units (unknown) date) unknown) (unknown) (no (unknown) (unknown) L1-L2: No canal (units (unknown) date) stenosis or unknown) foraminal stenosis. (unknown) (no (unknown) (unknown) L2-L3: No canal (units (unknown) date) stenosis or unknown) foraminal stenosis. (unknown) (no (unknown) (unknown) L3-L4: No canal (units (unknown) date) stenosis or unknown) foraminal stenosis. (unknown) (no (unknown) (unknown) L4-L5: No canal (units (unknown) date) stenosis or unknown) foraminal stenosis. (unknown) (no (unknown) (unknown) L5-S1: There is (units (unknown) date) bilateral facet unknown) hypertrophy. No canal stenosis. There is (unknown) (no (unknown) (unknown) Left (units (unkno wn) date) unknown) (unknown) (no (unknown) (unknown) Loc: ED (units (unkno wn) date) unknown) (unknown) (no (unknown) (unknown) No acute (units (unkno wn) date) intracranial unknown) abnormality. (unknown) (no (unknown) (unknown) No acute osseous (units (unknown) date) abnormality. unknown) (unknown) (no (unknown) (unknown) No suspicious (units ( unknown) date) lytic or blastic unknown) bony lesions. No pars defects. (unknown) (no (unknown) (unknown) Noncontrast 3 mm (units (unknown) date) thick sections unknown) acquired from the T12 level to the sacrum. (unknown) (no (unknown) (unknown) Noncontrast 3 mm (units (unknown) date) thick sections unknown) acquired from the skull base to the T4 level. (unknown) (no (unknown) (unknown) Noncontrast 3 mm (units (unknown) date) thick sections unknown) acquired through the region of interest in the (unknown) (no (unknown) (unknown) Noncontrast 4.5 (units (unknown) date) mm thick angled unknown) axial sections acquired from the foramen magnum (unknown) (no (unknown) (unknown) Ordering (units (unkno wn) date) Provider: unknown) Stephan Issa D.O. (unknown) (no (unknown) (unknown) PROCEDURE: CT (units ( unknown) date) CERVICAL SPINE WO unknown) CON (unknown) (no (unknown) (unknown) PROCEDURE: CT (units ( unknown) date) HEAD/BRAIN WO CON unknown) (unknown) (no (unknown) (unknown) PROCEDURE: CT (units ( unknown) date) LUMBAR SPINE WO unknown) CON (unknown) (no (unknown) (unknown) PROCEDURE: CT (units ( unknown) date) THORACIC SPINE WO unknown) CON (unknown) (no (unknown) (unknown) Patient: Eleazar (units ( unknown) date) Yann Jones MR#: [id number] unknown) (unknown) (no (unknown) (unknown) Procedure: CT (units ( unknown) date) cervical spine wo unknown) con (unknown) (no (unknown) (unknown) Procedure: CT (units ( unknown) date) head/brain wo con unknown) (unknown) (no (unknown) (unknown) Procedure: CT (units ( unknown) date) lumbar spine wo unknown) con (unknown) (no (unknown) (unknown) Procedure: CT (units ( unknown) date) thoracic spine wo unknown) con (unknown) (no (unknown) (unknown) Radiology (units (unkn own) date) Services. unknown) (unknown) (no (unknown) (unknown) Real (units (unkno wn) date) unknown) (unknown) (no (unknown) (unknown) Sagittal and (units (u nknown) date) unknown) (unknown) (no (unknown) (unknown) Sagittal (units (unkno wn) date) unknown) (unknown) (no (unknown) (unknown) Signed (units (unkno wn) date) unknown) (unknown) (no (unknown) (unknown) Sinuses: Trace (units (unknown) date) mucosal thickening unknown) in the maxillary sinuses and sphenoid (unknown) (no (unknown) (unknown) Skull and face: (units (unknown) date) Calvarium and unknown) visualized facial bones are intact, without (unknown) (no (unknown) (unknown) Soft tissues: No (units (unknown) date) paravertebral unknown) masses or hematomas. Visualized posteromedial (unknown) (no (unknown) (unknown) Soft tissues: No (units (unknown) date) retroperitoneal unknown) masses or hematomas. Visualized aorta is (unknown) (no (unknown) (unknown) Soft tissues: (units ( unknown) date) Prevertebral soft unknown) tissues are normal in thickness. No (unknown) (no (unknown) (unknown) T12-L1: No canal (units (unknown) date) stenosis or unknown) foraminal stenosis. (unknown) (no (unknown) (unknown) T9. No (units (unkno wn) date) unknown) (unknown) (no (unknown) (unknown) TECHNIQUE: (units (unk nown) date) unknown) (unknown) (no (unknown) (unknown) This report is (units (unknown) date) concordant with unknown) the overnight preliminary interpretation. (unknown) (no (unknown) (unknown) Ventricles (units (unk nown) date) unknown) (unknown) (no (unknown) (unknown) acute vertebral (units (unknown) date) body compression unknown) fractures. No suspicious sclerotic or lytic (unknown) (no (unknown) (unknown) and coronal (units (un known) date) reformats were unknown) then constructed. For radiation dose reduction, the (unknown) (no (unknown) (unknown) appear clear. (units ( unknown) date) There is unknown) interstitial change in the periphery of the right lung. (unknown) (no (unknown) (unknown) are normal in (units ( unknown) date) size and shape. unknown) (unknown) (no (unknown) (unknown) bilateral (units (unkn own) date) foraminal unknown) narrowing. (unknown) (no (unknown) (unknown) bony (units (unkno wn) date) unknown) (unknown) (no (unknown) (unknown) caliber. (units (unkno wn) date) Bilateral ureteral unknown) stents are noted to be in place. There is mild (unknown) (no (unknown) (unknown) coronal reformats (units (unknown) date) were constructed. unknown) For radiation dose reduction, the (unknown) (no (unknown) (unknown) cyst. (units (unkno wn) date) unknown) (unknown) (no (unknown) (unknown) dose (units (unkno wn) date) unknown) (unknown) (no (unknown) (unknown) following was (units ( unknown) date) unknown) (unknown) (no (unknown) (unknown) following (units (unkn own) date) unknown) (unknown) (no (unknown) (unknown) fractures. (units (unk nown) date) unknown) (unknown) (no (unknown) (unknown) hematomas. No (units ( unknown) date) apical unknown) pneumothoraces. Ground-glass opacity in the upper lobes. (unknown) (no (unknown) (unknown) interface is (units (u nknown) date) normal. unknown) (unknown) (no (unknown) (unknown) lesions. Central (units (unknown) date) spinal canal is of unknown) normal overall caliber. (unknown) (no (unknown) (unknown) lesions. (units (unkno wn) date) unknown) (unknown) (no (unknown) (unknown) lung is grossly (units (unknown) date) clear. Based on unknown) the patient's positioning, the findings in the (unknown) (no (unknown) (unknown) lung may (units (unkno wn) date) represent unknown) dependent change. Or, findings may represent unilateral (unknown) (no (unknown) (unknown) lungs (units (unkno wn) date) unknown) (unknown) (no (unknown) (unknown) matter (units (unkno wn) date) unknown) (unknown) (no (unknown) (unknown) moderate (units (unkno wn) date) unknown) (unknown) (no (unknown) (unknown) normal in (units (unkn own) date) unknown) (unknown) (no (unknown) (unknown) of the renal (units (u nknown) date) collecting systems unknown) bilaterally. (unknown) (no (unknown) (unknown) paranasal sinus (units (unknown) date) is are clear. The unknown) mastoids are clear. (unknown) (no (unknown) (unknown) paravertebral (units ( unknown) date) unknown) (unknown) (no (unknown) (unknown) patient (units (unkno wn) date) unknown) (unknown) (no (unknown) (unknown) prominence (units (unk nown) date) unknown) (unknown) (no (unknown) (unknown) pulmonary edema. (units (unknown) date) Small cystic unknown) nodule, posterior to T10 likely represents a (unknown) (no (unknown) (unknown) reduction, the (units (unknown) date) following was unknown) used: automated exposure control. (unknown) (no (unknown) (unknown) right (units (unkno wn) date) unknown) (unknown) (no (unknown) (unknown) sebaceous (units (unkn own) date) unknown) (unknown) (no (unknown) (unknown) sinuses. Other (units (unknown) date) unknown) (unknown) (no (unknown) (unknown) size. (units (unkno wn) date) unknown) (unknown) (no (unknown) (unknown) spine. Sagittal (units (unknown) date) and coronal unknown) reformats were then constructed. For radiation (unknown) (no (unknown) (unknown) suspicious (units (unk nown) date) unknown) (unknown) (no (unknown) (unknown) thoracic (units (unkno wn) date) unknown) (unknown) (no (unknown) (unknown) to the (units (unkno wn) date) unknown) (unknown) (no (unknown) (unknown) used: automated (units (unknown) date) exposure control. unknown) (unknown) (no (unknown) (unknown) vertex, with (units (u nknown) date) coronal and unknown) sagittal reformats. For radiation dose reduction, the (unknown) (no (unknown) (unknown) very mild (units (unkn own) date) unknown) (unknown) (no (unknown) (unknown) was used: (units (unkn own) date) automated exposure unknown) control, adjustment of mA and/or kV according to Result panel [id number] (unknown) (no (unknown) (unknown) (no value) (units (unk nown) date) unknown) (unknown) (no (unknown) (unknown) (Lidoderm) (units (unk nown) date) unknown) (unknown) (no (unknown) (unknown) [id number] (units (unkno wn) date) unknown) (unknown) (no (unknown) (unknown) 1 patch TOP (units (un known) date) DAILY Qty: 15 0RF unknown) (unknown) (no (unknown) (unknown) 07/13/22 06:08 (units (unknown) date) unknown) (unknown) (no (unknown) (unknown) 12 point review (units (unknown) date) of systems is unknown) negative except for those stated above (unknown) (no (unknown) (unknown) 300 mg PO BID (units ( unknown) date) unknown) (unknown) (no (unknown) (unknown) 47-year-old male (units (unknown) date) smoker ?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 No flank tenderness. (unknown) (no (unknown) (unknown) Back pain (units (unkn own) date) unknown) (unknown) (no (unknown) (unknown) CARDIOVASCULAR: (units (unknown) date) Denies chest unknown) pain, palpitations, orthopnea, edema, (unknown) (no (unknown) (unknown) CARDIOVASCULAR: (units (unknown) date) Regular rate and unknown) rhythm without murmurs, gallops, or rubs. (unknown) (no (unknown) (unknown) CT cervical (units (un known) date) spine wo con Stat unknown) (unknown) (no (unknown) (unknown) CT head/brain wo (units (unknown) date) con Stat unknown) (unknown) (no (unknown) (unknown) CT lumbar spine (units (unknown) date) wo con Stat unknown) (unknown) (no (unknown) (unknown) CT thoracic (units (un known) date) spine wo con Stat unknown) (unknown) (no (unknown) (unknown) Course (units (unkno wn) date) unknown) (unknown) (no (unknown) (unknown) : 1975 (units (unknown) date) Acct:[id number] unknown) (unknown) (no (unknown) (unknown) Date of Service: (units (unknown) date) 07/13/22 unknown) (unknown) (no (unknown) (unknown) Departure (units (unkn own) date) unknown) (unknown) (no (unknown) (unknown) Discharge Plan (units (unknown) date) unknown) (unknown) (no (unknown) (unknown) ED Orders (units (unkn own) date) unknown) (unknown) (no (unknown) (unknown) ENT: Nose (units (unkn own) date) without bleeding, unknown) purulent drainage. Throat without erythema, (unknown) (no (unknown) (unknown) ER Physician: (units ( unknown) date) Stephan Issa unknown) D.O. (unknown) (no (unknown) (unknown) EYES: Pupils (units (u nknown) date) equal round and unknown) reactive. No hyphema Extraocular motions intact. (unknown) (no (unknown) (unknown) Emergency Report (units (unknown) date) unknown) (unknown) (no (unknown) (unknown) Exam Narrative: (units (unknown) date) unknown) (unknown) (no (unknown) (unknown) Exam (units (unkno wn) date) unknown) (unknown) (no (unknown) (unknown) Family History (units (unknown) date) (Reviewed unknown) 07/13/22 @ 06:20 by Stephan Issa DO) (unknown) (no (unknown) (unknown) Father CVA (units (unk nown) date) (cerebral unknown) vascular accident) (unknown) (no (unknown) (unknown) Functional (units (unk nown) date) paraparesis unknown) (unknown) (no (unknown) (unknown) GASTROINTESTINAL (units (unknown) date) : Abdomen soft, unknown) non-tender, nondistended. (unknown) (no (unknown) (unknown) GASTROINTESTINAL (units (unknown) date) : Denies nausea, unknown) vomiting, abdominal pain, diarrhea, (unknown) (no (unknown) (unknown) GENERAL: Denies (units (unknown) date) chills, fatigue, unknown) malaise, fever, sweats. (unknown) (no (unknown) (unknown) GENERAL: [47] (units ( unknown) date) year old patient unknown) appears stated age. Well-developed patient, in (unknown) (no (unknown) (unknown) : Denies (units (unk nown) date) dysuria, unknown) frequency, incontinence, hematuria, urinary retention. (unknown) (no (unknown) (unknown) General (units (unkno wn) date) unknown) (unknown) (no (unknown) (unknown) HEAD: (units (unkno wn) date) Atraumatic. unknown) Normocephalic. No contusion, abrasion or evidence of (unknown) (no (unknown) (unknown) HEENT: Denies (units ( unknown) date) sinus pain, ear unknown) pain, sore throat, difficulty swallowing, (unknown) (no (unknown) (unknown) HPI - Back (units (unk nown) date) Pain/Injury unknown) (unknown) (no (unknown) (unknown) HPI Narrative: (units (unknown) date) unknown) (unknown) (no (unknown) (unknown) History of (units (unk nown) date) Present Illness unknown) (unknown) (no (unknown) (unknown) History of (units (unk nown) date) spinal surgery unknown) (unknown) (no (unknown) (unknown) History of (units (unk nown) date) tonsillectomy unknown) (unknown) (no (unknown) (unknown) Home Medications (units (unknown) date) unknown) (unknown) (no (unknown) (unknown) Hypertension (units (u nknown) date) unknown) (unknown) (no (unknown) (unknown) [facility] (units (unknown) date) [address] [place] [address] unknown) [place] [address] (unknown) (no (unknown) (unknown) Label Comments: (units (unknown) date) unknown) (unknown) (no (unknown) (unknown) MUSCULOSKELETAL: (units (unknown) date) See HPI unknown) (unknown) (no (unknown) (unknown) Medical History (units (unknown) date) (Reviewed unknown) 07/13/22 @ 06:20 by Stephan Issa DO) (unknown) (no (unknown) (unknown) Medication (units (unk nown) date) Instructions unknown) Recorded Confirmed (unknown) (no (unknown) (unknown) Medication (units (unk nown) date) Instructions unknown) Recorded (unknown) (no (unknown) (unknown) Mother (units (unkno wn) date) Myocardial unknown) infarct (unknown) (no (unknown) (unknown) NECK: Trachea (units ( unknown) date) midline. Midline unknown) tenderness of entire cervical and upper thoracic (unknown) (no (unknown) (unknown) NEURO: AOx3. (units (u nknown) date) unknown) (unknown) (no (unknown) (unknown) NEUROLOGIC: (units (un known) date) Denies weakness, unknown) headache, numbness, change in speech, confusion, (unknown) (no (unknown) (unknown) Narrative (units (unkn own) date) unknown) (unknown) (no (unknown) (unknown) Narrative: (units (unk nown) date) unknown) (unknown) (no (unknown) (unknown) Neurogenic pain (units (unknown) date) unknown) (unknown) (no (unknown) (unknown) No Action (units (unkn own) date) unknown) (unknown) (no (unknown) (unknown) No scleral (units (unk nown) date) icterus. No unknown) injection or drainage. (unknown) (no (unknown) (unknown) Ordered: (units (unkno wn) date) unknown) (unknown) (no (unknown) (unknown) Orders (units (unkno wn) date) unknown) (unknown) (no (unknown) (unknown) PSYCHIATRIC: No (units (unknown) date) concerning unknown) psychosocial issues. (unknown) (no (unknown) (unknown) Patient History (units (unknown) date) unknown) (unknown) (no (unknown) (unknown) Patient: Eleazar (units ( unknown) date) Yann Jones MR#: unknown) M00 (unknown) (no (unknown) (unknown) Prescriptions: (units (unknown) date) unknown) (unknown) (no (unknown) (unknown) Previous Rx's (units ( unknown) date) unknown) (unknown) (no (unknown) (unknown) RESPIRATORY: (units (un known) date) Clear to unknown) auscultation. Breath sounds equal bilaterally. No wheezes, (unknown) (no (unknown) (unknown) RESPIRATORY: (units (u nknown) date) Denies dyspnea, unknown) cough, wheezing, hemoptysis, sputum. 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 unknown) (unknown) (no (unknown) (unknown) Signed By: (units (unk nown) date) unknown) (unknown) (no (unknown) (unknown) Smoking Status: (units (unknown) date) Current some day unknown) smoker (unknown) (no (unknown) (unknown) Social History (units (unknown) date) (Reviewed unknown) 07/13/22 @ 06:20 by Stephan Issa DO) (unknown) (no (unknown) (unknown) Stated (units (unkno wn) date) Complaint: neck unknown) and back pain (unknown) (no (unknown) (unknown) Substance Use (units ( unknown) date) Type: marijuana unknown) (unknown) (no (unknown) (unknown) Surgical History (units (unknown) date) (Reviewed unknown) 07/13/22 @ 06:20 by Stephan Issa DO) (unknown) (no (unknown) (unknown) Take 1 capsule (units (unknown) date) by mouth twice a unknown) day for chronic back pain (unknown) (no (unknown) (unknown) Take 1 tablet by (units (unknown) date) mouth twice a day unknown) (unknown) (no (unknown) (unknown) Time Seen by (units (u nknown) date) Provider: unknown) 07/13/22 06:07 (unknown) (no (unknown) (unknown) Danika García, (units (unknown) date) KIANNA [Primary unknown) Care Provider] (unknown) (no (unknown) (unknown) alcohol intake (units (unknown) date) frequency: unknown) holidays/special occasions only (unknown) (no (unknown) (unknown) alcohol intake: (units (unknown) date) current unknown) (unknown) (no (unknown) (unknown) and back pain (units ( unknown) date) after falling out unknown) of bed and laying on the floor. He states he (unknown) (no (unknown) (unknown) constipation, (units ( unknown) date) melena. unknown) (unknown) (no (unknown) (unknown) depressed skull (units (unknown) date) fracture unknown) (unknown) (no (unknown) (unknown) dizziness. (units (unk nown) date) unknown) (unknown) (no (unknown) (unknown) gabapentin (units (unk nown) date) AdvReac Shakiness unknown) Verified 10/16/21 09:17 (unknown) (no (unknown) (unknown) has increased (units ( unknown) date) pain with motion unknown) and improvement with rest. He denies any new (unknown) (no (unknown) (unknown) household (units (unkn own) date) members: spouse, unknown) children, friend(s) and other (unknown) (no (unknown) (unknown) leave on most (units ( unknown) date) painful area for unknown) 12 hrs (unknown) (no (unknown) (unknown) lidocaine 5 % (units ( unknown) date) topical patch 1 unknown) patch topical DAILY #15 ea 07/11/22 (unknown) (no (unknown) (unknown) lidocaine (units (unkn own) date) [Lidoderm] 5 % unknown) adhesive patch,medicated (unknown) (no (unknown) (unknown) loading (units (unkno wn) date) unknown) (unknown) (no (unknown) (unknown) metoprolol (units (unk nown) date) tartrate 50 mg unknown) tablet 50 mg PO BID 10/15/21 10/15/21 (unknown) (no (unknown) (unknown) metoprolol (units (unk nown) date) tartrate 50 mg unknown) tablet (unknown) (no (unknown) (unknown) midline neck and (units (unknown) date) back pain after unknown) an apparent fall. He does not know exactly (unknown) (no (unknown) (unknown) mild distress. (units (unknown) date) GCS 15 unknown) (unknown) (no (unknown) (unknown) morphine Allergy (units (unknown) date) Nightmare unknown) Verified 10/16/21 09:17 (unknown) (no (unknown) (unknown) numbness or (units (un known) date) tingling but is a unknown) known paraplegic. He denies any blurred vision, (unknown) (no (unknown) (unknown) pregabalin 300 (units (unknown) date) mg capsule unknown) (Lyrica) 300 mg PO BID 10/15/21 10/15/21 (unknown) (no (unknown) (unknown) pregabalin (units (unk nown) date) [Lyrica] 300 mg unknown) capsule (unknown) (no (unknown) (unknown) rales, or (units (unkn own) date) rhonchi. unknown) (unknown) (no (unknown) (unknown) seizures, (units (unkn own) date) incoordination. unknown) (unknown) (no (unknown) (unknown) sharp and (units (unkn own) date) stabbing left rib unknown) pain that has been present for quite some time. EMS (unknown) (no (unknown) (unknown) spine, no (units (unkn own) date) step-offs, unknown) crepitance or ecchymosis noted, no change with axial (unknown) (no (unknown) (unknown) states that he (units (unknown) date) was transported unknown) to another emergency department multiple times (unknown) (no (unknown) (unknown) tonsillar (units (unkn own) date) hypertrophy or unknown) exudate. Airway patent. (unknown) (no (unknown) (unknown) trouble with (units (u nknown) date) speech or unknown) vomiting. He is had no fever or chills. He does have a (unknown) (no (unknown) (unknown) what happened (units ( unknown) date) but EMS was unknown) activated to evaluate him with complaint of head neck (unknown) (no (unknown) (unknown) with (units (unkno wn) date) this?presents by unknown) EMS for evaluation of a sharp left anterior chest pain, (unknown) (no (unknown) (unknown) yesterday (units (unkn own) date) unknown) Result panel [id number] (unknown) (no (unknown) (unknown) (no value) (units (unk nown) date) unknown) (unknown) (no (unknown) (unknown) (Lidoderm) (units (unk nown) date) unknown) (unknown) (no (unknown) (unknown) [id number] (units (unkno wn) date) unknown) (unknown) (no (unknown) (unknown) 06:14 (units (unkno wn) date) unknown) (unknown) (no (unknown) (unknown) 1 patch TOP (units (un known) date) DAILY Qty: 15 0RF unknown) (unknown) (no (unknown) (unknown) 07/13/22 06:08 (units (unknown) date) unknown) (unknown) (no (unknown) (unknown) 07/13/22 (units (unkno wn) date) unknown) (unknown) (no (unknown) (unknown) 12 point review (units (unknown) date) of systems is unknown) negative except for those stated above (unknown) (no (unknown) (unknown) 300 mg PO BID (units ( unknown) date) unknown) (unknown) (no (unknown) (unknown) 47-year-old male (units (unknown) date) smoker ?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 No flank tenderness. (unknown) (no (unknown) (unknown) Back pain (units (unkn own) date) unknown) (unknown) (no (unknown) (unknown) Blood Pressure (units (unknown) date) 170/98 H 07/13/22 unknown) 06:14 (unknown) (no (unknown) (unknown) Blood Pressure (units (unknown) date) 170/98 H unknown) (unknown) (no (unknown) (unknown) CARDIOVASCULAR: (units (unknown) date) Denies chest unknown) pain, palpitations, orthopnea, edema, (unknown) (no (unknown) (unknown) CARDIOVASCULAR: (units (unknown) date) Regular rate and unknown) rhythm without murmurs, gallops, or rubs. (unknown) (no (unknown) (unknown) CT cervical (units (un known) date) spine wo con Stat unknown) (unknown) (no (unknown) (unknown) CT head/brain wo (units (unknown) date) con Stat unknown) (unknown) (no (unknown) (unknown) CT lumbar spine (units (unknown) date) wo con Stat unknown) (unknown) (no (unknown) (unknown) CT thoracic (units (un known) date) spine wo con Stat unknown) (unknown) (no (unknown) (unknown) Chief Complaint: (units (unknown) date) Neck Pain/Injury unknown) (unknown) (no (unknown) (unknown) Course (units (unkno wn) date) unknown) (unknown) (no (unknown) (unknown) : 1975 (units (unknown) date) Acct:[id number] unknown) (unknown) (no (unknown) (unknown) Date of Service: (units (unknown) date) 07/13/22 unknown) (unknown) (no (unknown) (unknown) Departure (units (unkn own) date) unknown) (unknown) (no (unknown) (unknown) Discharge Plan (units (unknown) date) unknown) (unknown) (no (unknown) (unknown) ED Orders (units (unkn own) date) unknown) (unknown) (no (unknown) (unknown) ENT: Nose (units (unkn own) date) without bleeding, unknown) purulent drainage. Throat without erythema, (unknown) (no (unknown) (unknown) ER Physician: (units ( unknown) date) Stephan Issa unknown) D.O. (unknown) (no (unknown) (unknown) EYES: Pupils (units (u nknown) date) equal round and unknown) reactive. No hyphema Extraocular motions intact. (unknown) (no (unknown) (unknown) Emergency Report (units (unknown) date) unknown) (unknown) (no (unknown) (unknown) Exam Narrative: (units (unknown) date) unknown) (unknown) (no (unknown) (unknown) Exam (units (unkno wn) date) unknown) (unknown) (no (unknown) (unknown) Family History (units (unknown) date) (Reviewed unknown) 07/13/22 @ 06:20 by Stephan Issa DO) (unknown) (no (unknown) (unknown) Father CVA (units (unk nown) date) (cerebral unknown) vascular accident) (unknown) (no (unknown) (unknown) Functional (units (unk n) date) paraparesis unknown) (unknown) (no (unknown) (unknown) GASTROINTESTINAL (units (unknown) date) : Abdomen soft, unknown) non-tender, nondistended. (unknown) (no (unknown) (unknown) GASTROINTESTINAL (units (unknown) date) : Denies nausea, unknown) vomiting, abdominal pain, diarrhea, (unknown) (no (unknown) (unknown) GENERAL: Denies (units (unknown) date) chills, fatigue, unknown) malaise, fever, sweats. (unknown) (no (unknown) (unknown) GENERAL: [47] (units ( unknown) date) year old patient unknown) appears stated age. Well-developed patient, in (unknown) (no (unknown) (unknown) : Denies (units (unk n) date) dysuria, unknown) frequency, incontinence, hematuria, urinary retention. (unknown) (no (unknown) (unknown) General (units (unkno wn) date) unknown) (unknown) (no (unknown) (unknown) HEAD: (units (unkno wn) date) Atraumatic. unknown) Normocephalic. No contusion, abrasion or evidence of (unknown) (no (unknown) (unknown) HEENT: Denies (units ( unknown) date) sinus pain, ear unknown) pain, sore throat, difficulty swallowing, (unknown) (no (unknown) (unknown) HPI - Back (units (unk nown) date) Pain/Injury unknown) (unknown) (no (unknown) (unknown) HPI Narrative: (units (unknown) date) unknown) (unknown) (no (unknown) (unknown) History of (units (unk nown) date) Present Illness unknown) (unknown) (no (unknown) (unknown) History of (units (unk nown) date) spinal surgery unknown) (unknown) (no (unknown) (unknown) History of (units (unk nown) date) tonsillectomy unknown) (unknown) (no (unknown) (unknown) Home Medications (units (unknown) date) unknown) (unknown) (no (unknown) (unknown) Hypertension (units (u nknown) date) unknown) (unknown) (no (unknown) (unknown) Initial Vital (units ( unknown) date) Signs unknown) (unknown) (no (unknown) (unknown) Initial Vital (units ( unknown) date) Signs: unknown) (unknown) (no (unknown) (unknown) [facility] (units (unknown) date) [address] unknown) [place] [address] (unknown) (no (unknown) (unknown) Label Comments: (units (unknown) date) unknown) (unknown) (no (unknown) (unknown) MUSCULOSKELETAL: (units (unknown) date) See HPI unknown) (unknown) (no (unknown) (unknown) Medical History (units (unknown) date) (Reviewed unknown) 07/13/22 @ 06:20 by Stephan Issa DO) (unknown) (no (unknown) (unknown) Medication (units (unk nown) date) Instructions unknown) Recorded Confirmed (unknown) (no (unknown) (unknown) Medication (units (unk nown) date) Instructions unknown) Recorded (unknown) (no (unknown) (unknown) Mother (units (unkno wn) date) Myocardial unknown) infarct (unknown) (no (unknown) (unknown) NECK: Trachea (units ( unknown) date) midline. Midline unknown) tenderness of entire cervical and upper thoracic (unknown) (no (unknown) (unknown) NEURO: AOx3. (units (u nknown) date) unknown) (unknown) (no (unknown) (unknown) NEUROLOGIC: (units (un known) date) Denies weakness, unknown) headache, numbness, change in speech, confusion, (unknown) (no (unknown) (unknown) Narrative (units (unkn own) date) unknown) (unknown) (no (unknown) (unknown) Narrative: (units (unk nown) date) unknown) (unknown) (no (unknown) (unknown) Neurogenic pain (units (unknown) date) unknown) (unknown) (no (unknown) (unknown) No Action (units (unkn own) date) unknown) (unknown) (no (unknown) (unknown) No scleral (units (unk nown) date) icterus. No unknown) injection or drainage. (unknown) (no (unknown) (unknown) Ordered: (units (unkno wn) date) unknown) (unknown) (no (unknown) (unknown) Orders (units (unkno wn) date) unknown) (unknown) (no (unknown) (unknown) Oxygen Delivery (units (unknown) date) Method 07/13/22 unknown) 06:14 (unknown) (no (unknown) (unknown) Oxygen Delivery (units (unknown) date) Method Room Air unknown) (unknown) (no (unknown) (unknown) PSYCHIATRIC: No (units (unknown) date) concerning unknown) psychosocial issues. (unknown) (no (unknown) (unknown) Patient History (units (unknown) date) unknown) (unknown) (no (unknown) (unknown) Patient: Eleazar (units ( unknown) date) Yann Jones MR#: unknown) M00 (unknown) (no (unknown) (unknown) Prescriptions: (units (unknown) date) unknown) (unknown) (no (unknown) (unknown) Previous Rx's (units ( unknown) date) unknown) (unknown) (no (unknown) (unknown) Pulse Oximetry (units (unknown) date) 99 07/13/22 06:14 unknown) (unknown) (no (unknown) (unknown) Pulse Oximetry (units (unknown) date) 99 unknown) (unknown) (no (unknown) (unknown) Pulse Rate 76 (units ( unknown) date) 07/13/22 06:14 unknown) (unknown) (no (unknown) (unknown) Pulse Rate 76 (units ( unknown) date) unknown) (unknown) (no (unknown) (unknown) RESPIRATORY: (units (un known) date) Clear to unknown) auscultation. Breath sounds equal bilaterally. No wheezes, (unknown) (no (unknown) (unknown) RESPIRATORY: (units (u nknown) date) Denies dyspnea, unknown) cough, wheezing, hemoptysis, sputum. (unknown) (no (unknown) (unknown) Referrals: (units (unk nown) date) unknown) (unknown) (no (unknown) (unknown) Related Data (units (u nknown) date) unknown) (unknown) (no (unknown) (unknown) Respiratory Rate (units (unknown) date) 20 07/13/22 06:14 unknown) (unknown) (no (unknown) (unknown) Respiratory Rate (units (unknown) date) 20 unknown) (unknown) (no (unknown) (unknown) Review of (units (unkn own) date) Systems unknown) (unknown) (no (unknown) (unknown) Rx Instructions: (units (unknown) date) unknown) (unknown) (no (unknown) (unknown) SKIN: Denies (units (u nknown) date) rash, skin unknown) lesions, or other (unknown) (no (unknown) (unknown) SKIN: No rash or (units (unknown) date) erythema of unknown) visible areas (unknown) (no (unknown) (unknown) 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 unknown) (unknown) (no (unknown) (unknown) Signed By: (units (unk nown) date) unknown) (unknown) (no (unknown) (unknown) Smoking Status: (units (unknown) date) Current some day unknown) smoker (unknown) (no (unknown) (unknown) Social History (units (unknown) date) (Reviewed unknown) 07/13/22 @ 06:20 by Stephan Issa DO) (unknown) (no (unknown) (unknown) Stated (units (unkno wn) date) Complaint: neck unknown) and back pain (unknown) (no (unknown) (unknown) Substance Use (units ( unknown) date) Type: marijuana unknown) (unknown) (no (unknown) (unknown) Surgical History (units (unknown) date) (Reviewed unknown) 07/13/22 @ 06:20 by Stephan Issa DO) (unknown) (no (unknown) (unknown) Take 1 capsule (units (unknown) date) by mouth twice a unknown) day for chronic back pain (unknown) (no (unknown) (unknown) Take 1 tablet by (units (unknown) date) mouth twice a day unknown) (unknown) (no (unknown) (unknown) Temperature 97.7 (units (unknown) date) F 07/13/22 06:14 unknown) (unknown) (no (unknown) (unknown) Temperature 97.7 (units (unknown) date) F unknown) (unknown) (no (unknown) (unknown) Time Seen by (units (u nknown) date) Provider: unknown) 07/13/22 06:07 (unknown) (no (unknown) (unknown) Vital Signs - 8 (units (unknown) date) hr unknown) (unknown) (no (unknown) (unknown) Vital Signs (units (un known) date) unknown) (unknown) (no (unknown) (unknown) Vital signs: (units (u nknown) date) unknown) (unknown) (no (unknown) (unknown) Danika García, (units (unknown) date) KIANNA [Primary unknown) Care Provider] (unknown) (no (unknown) (unknown) alcohol intake (units (unknown) date) frequency: unknown) holidays/special occasions only (unknown) (no (unknown) (unknown) alcohol intake: (units (unknown) date) current unknown) (unknown) (no (unknown) (unknown) and back pain (units ( unknown) date) after falling out unknown) of bed and laying on the floor. He states he (unknown) (no (unknown) (unknown) constipation, (units ( unknown) date) melena. unknown) (unknown) (no (unknown) (unknown) depressed skull (units (unknown) date) fracture unknown) (unknown) (no (unknown) (unknown) dizziness. (units (unk nown) date) unknown) (unknown) (no (unknown) (unknown) gabapentin (units (unk nown) date) AdvReac Shakiness unknown) Verified 10/16/21 09:17 (unknown) (no (unknown) (unknown) has increased (units ( unknown) date) pain with motion unknown) and improvement with rest. He denies any new (unknown) (no (unknown) (unknown) household (units (unkn own) date) members: spouse, unknown) children, friend(s) and other (unknown) (no (unknown) (unknown) leave on most (units ( unknown) date) painful area for unknown) 12 hrs (unknown) (no (unknown) (unknown) lidocaine 5 % (units ( unknown) date) topical patch 1 unknown) patch topical DAILY #15 ea 07/11/22 (unknown) (no (unknown) (unknown) lidocaine (units (unkn own) date) [Lidoderm] 5 % unknown) adhesive patch,medicated (unknown) (no (unknown) (unknown) loading (units (unkno wn) date) unknown) (unknown) (no (unknown) (unknown) metoprolol (units (unk nown) date) tartrate 50 mg unknown) tablet 50 mg PO BID 10/15/21 10/15/21 (unknown) (no (unknown) (unknown) metoprolol (units (unk nown) date) tartrate 50 mg unknown) tablet (unknown) (no (unknown) (unknown) midline neck and (units (unknown) date) back pain after unknown) an apparent fall. He does not know exactly (unknown) (no (unknown) (unknown) mild distress. (units (unknown) date) GCS 15 unknown) (unknown) (no (unknown) (unknown) morphine Allergy (units (unknown) date) Nightmare unknown) Verified 10/16/21 09:17 (unknown) (no (unknown) (unknown) numbness or (units (un known) date) tingling but is a unknown) known paraplegic. He denies any blurred vision, (unknown) (no (unknown) (unknown) pregabalin 300 (units (unknown) date) mg capsule unknown) (Lyrica) 300 mg PO BID 10/15/21 10/15/21 (unknown) (no (unknown) (unknown) pregabalin (units (unk nown) date) [Lyrica] 300 mg unknown) capsule (unknown) (no (unknown) (unknown) rales, or (units (unkn own) date) rhonchi. unknown) (unknown) (no (unknown) (unknown) seizures, (units (unkn own) date) incoordination. unknown) (unknown) (no (unknown) (unknown) sharp and (units (unkn own) date) stabbing left rib unknown) pain that has been present for quite some time. EMS (unknown) (no (unknown) (unknown) spine, no (units (unkn own) date) step-offs, unknown) crepitance or ecchymosis noted, no change with axial (unknown) (no (unknown) (unknown) states that he (units (unknown) date) was transported unknown) to another emergency department multiple times (unknown) (no (unknown) (unknown) tonsillar (units (unkn own) date) hypertrophy or unknown) exudate. Airway patent. (unknown) (no (unknown) (unknown) trouble with (units (u nknown) date) speech or unknown) vomiting. He is had no fever or chills. He does have a (unknown) (no (unknown) (unknown) what happened (units ( unknown) date) but EMS was unknown) activated to evaluate him with complaint of head neck (unknown) (no (unknown) (unknown) with (units (unkno wn) date) this?presents by unknown) EMS for evaluation of a sharp left anterior chest pain, (unknown) (no (unknown) (unknown) yesterday (units (unkn own) date) unknown) Result panel 1070 (unknown) (no (unknown) (unknown) (no value) (units (unk nown) date) unknown) (unknown) (no (unknown) (unknown) (Lidoderm) (units (unk nown) date) unknown) (unknown) (no (unknown) (unknown) [id number] (units (unkno wn) date) unknown) (unknown) (no (unknown) (unknown) 06:14 (units (unkno wn) date) unknown) (unknown) (no (unknown) (unknown) 1 patch TOP (units (un known) date) DAILY Qty: 15 0RF unknown) (unknown) (no (unknown) (unknown) 07/13/22 06:08 (units (unknown) date) unknown) (unknown) (no (unknown) (unknown) 07/13/22 (units (unkno wn) date) unknown) (unknown) (no (unknown) (unknown) 12 point review (units (unknown) date) of systems is unknown) negative except for those stated above (unknown) (no (unknown) (unknown) 300 mg PO BID (units ( unknown) date) unknown) (unknown) (no (unknown) (unknown) 47-year-old male (units (unknown) date) smoker ?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 No flank tenderness. (unknown) (no (unknown) (unknown) Back pain (units (unkn own) date) unknown) (unknown) (no (unknown) (unknown) Blood Pressure (units (unknown) date) 170/98 H 07/13/22 unknown) 06:14 (unknown) (no (unknown) (unknown) Blood Pressure (units (unknown) date) 170/98 H unknown) (unknown) (no (unknown) (unknown) CARDIOVASCULAR: (units (unknown) date) Denies chest unknown) pain, palpitations, orthopnea, edema, (unknown) (no (unknown) (unknown) CARDIOVASCULAR: (units (unknown) date) Regular rate and unknown) rhythm without murmurs, gallops, or rubs. (unknown) (no (unknown) (unknown) CT cervical (units (un known) date) spine wo con Stat unknown) (unknown) (no (unknown) (unknown) CT head/brain wo (units (unknown) date) con Stat unknown) (unknown) (no (unknown) (unknown) CT lumbar spine (units (unknown) date) wo con Stat unknown) (unknown) (no (unknown) (unknown) CT thoracic (units (un known) date) spine wo con Stat unknown) (unknown) (no (unknown) (unknown) Chief Complaint: (units (unknown) date) Neck Pain/Injury unknown) (unknown) (no (unknown) (unknown) Course (units (unkno wn) date) unknown) (unknown) (no (unknown) (unknown) : 1975 (units (unknown) date) Acct:[id number] unknown) (unknown) (no (unknown) (unknown) Date of Service: (units (unknown) date) 07/13/22 unknown) (unknown) (no (unknown) (unknown) Departure (units (unkn own) date) unknown) (unknown) (no (unknown) (unknown) Discharge Plan (units (unknown) date) unknown) (unknown) (no (unknown) (unknown) ED Orders (units (unkn own) date) unknown) (unknown) (no (unknown) (unknown) ENT: Nose (units (unkn own) date) without bleeding, unknown) purulent drainage. Throat without erythema, (unknown) (no (unknown) (unknown) ER Physician: (units ( unknown) date) Stephan Issa unknown) D.O. (unknown) (no (unknown) (unknown) EYES: Pupils (units (u nknown) date) equal round and unknown) reactive. No hyphema Extraocular motions intact. (unknown) (no (unknown) (unknown) Emergency Report (units (unknown) date) unknown) (unknown) (no (unknown) (unknown) Exam Narrative: (units (unknown) date) unknown) (unknown) (no (unknown) (unknown) Exam (units (unkno wn) date) unknown) (unknown) (no (unknown) (unknown) Family History (units (unknown) date) (Reviewed unknown) 07/13/22 @ 06:20 by Stephan Issa DO) (unknown) (no (unknown) (unknown) Father CVA (units (unk nown) date) (cerebral unknown) vascular accident) (unknown) (no (unknown) (unknown) Functional (units (unk nown) date) paraparesis unknown) (unknown) (no (unknown) (unknown) GASTROINTESTINAL (units (unknown) date) : Abdomen soft, unknown) non-tender, nondistended. (unknown) (no (unknown) (unknown) GASTROINTESTINAL (units (unknown) date) : Denies nausea, unknown) vomiting, abdominal pain, diarrhea, (unknown) (no (unknown) (unknown) GENERAL: Denies (units (unknown) date) chills, fatigue, unknown) malaise, fever, sweats. (unknown) (no (unknown) (unknown) GENERAL: [47] (units ( unknown) date) year old patient unknown) appears stated age. Well-developed patient, in (unknown) (no (unknown) (unknown) : Denies (units (unk nown) date) dysuria, unknown) frequency, incontinence, hematuria, urinary retention. (unknown) (no (unknown) (unknown) General (units (unkno wn) date) unknown) (unknown) (no (unknown) (unknown) HEAD: (units (unkno wn) date) Atraumatic. unknown) Normocephalic. No contusion, abrasion or evidence of (unknown) (no (unknown) (unknown) HEENT: Denies (units ( unknown) date) sinus pain, ear unknown) pain, sore throat, difficulty swallowing, (unknown) (no (unknown) (unknown) HPI - Back (units (unk nown) date) Pain/Injury unknown) (unknown) (no (unknown) (unknown) HPI Narrative: (units (unknown) date) unknown) (unknown) (no (unknown) (unknown) History of (units (unk nown) date) Present Illness unknown) (unknown) (no (unknown) (unknown) History of (units (unk nown) date) spinal surgery unknown) (unknown) (no (unknown) (unknown) History of (units (unk nown) date) tonsillectomy unknown) (unknown) (no (unknown) (unknown) Home Medications (units (unknown) date) unknown) (unknown) (no (unknown) (unknown) Hypertension (units (u nknown) date) unknown) (unknown) (no (unknown) (unknown) Initial Vital (units ( unknown) date) Signs unknown) (unknown) (no (unknown) (unknown) Initial Vital (units ( unknown) date) Signs: unknown) (unknown) (no (unknown) (unknown) [facility] (units (unknown) date) [address] unknown) [place] [address] (unknown) (no (unknown) (unknown) Label Comments: (units (unknown) date) unknown) (unknown) (no (unknown) (unknown) MUSCULOSKELETAL: (units (unknown) date) See HPI unknown) (unknown) (no (unknown) (unknown) Medical History (units (unknown) date) (Reviewed unknown) 07/13/22 @ 06:20 by Stephan Issa DO) (unknown) (no (unknown) (unknown) Medication (units (unk nown) date) Instructions unknown) Recorded Confirmed (unknown) (no (unknown) (unknown) Medication (units (unk nown) date) Instructions unknown) Recorded (unknown) (no (unknown) (unknown) Mother (units (unkno wn) date) Myocardial unknown) infarct (unknown) (no (unknown) (unknown) NECK: Trachea (units ( unknown) date) midline. Midline unknown) tenderness of entire cervical and upper thoracic (unknown) (no (unknown) (unknown) NEURO: AOx3. (units (u nknown) date) unknown) (unknown) (no (unknown) (unknown) NEUROLOGIC: (units (un known) date) Denies weakness, unknown) headache, numbness, change in speech, confusion, (unknown) (no (unknown) (unknown) Narrative (units (unkn own) date) unknown) (unknown) (no (unknown) (unknown) Narrative: (units (unk nown) date) unknown) (unknown) (no (unknown) (unknown) Neurogenic pain (units (unknown) date) unknown) (unknown) (no (unknown) (unknown) No Action (units (unkn own) date) unknown) (unknown) (no (unknown) (unknown) No scleral (units (unk nown) date) icterus. No unknown) injection or drainage. (unknown) (no (unknown) (unknown) Ordered: (units (unkno wn) date) unknown) (unknown) (no (unknown) (unknown) Orders (units (unkno wn) date) unknown) (unknown) (no (unknown) (unknown) Oxygen Delivery (units (unknown) date) Method 07/13/22 unknown) 06:14 (unknown) (no (unknown) (unknown) Oxygen Delivery (units (unknown) date) Method Room Air unknown) (unknown) (no (unknown) (unknown) PSYCHIATRIC: No (units (unknown) date) concerning unknown) psychosocial issues. (unknown) (no (unknown) (unknown) Patient History (units (unknown) date) unknown) (unknown) (no (unknown) (unknown) Patient: Bush (units ( unknown) date) Yann Jones MR#: unknown) M00 (unknown) (no (unknown) (unknown) Prescriptions: (units (unknown) date) unknown) (unknown) (no (unknown) (unknown) Previous Rx's (units ( unknown) date) unknown) (unknown) (no (unknown) (unknown) Pulse Oximetry (units (unknown) date) 99 07/13/22 06:14 unknown) (unknown) (no (unknown) (unknown) Pulse Oximetry (units (unknown) date) 99 unknown) (unknown) (no (unknown) (unknown) Pulse Rate 76 (units ( unknown) date) 07/13/22 06:14 unknown) (unknown) (no (unknown) (unknown) Pulse Rate 76 (units ( unknown) date) unknown) (unknown) (no (unknown) (unknown) RESPIRATORY: (units (un known) date) Clear to unknown) auscultation. Breath sounds equal bilaterally. No wheezes, (unknown) (no (unknown) (unknown) RESPIRATORY: (units (u nknown) date) Denies dyspnea, unknown) cough, wheezing, hemoptysis, sputum. (unknown) (no (unknown) (unknown) Referrals: (units (unk nown) date) unknown) (unknown) (no (unknown) (unknown) Related Data (units (u nknown) date) unknown) (unknown) (no (unknown) (unknown) Respiratory Rate (units (unknown) date) 20 07/13/22 06:14 unknown) (unknown) (no (unknown) (unknown) Respiratory Rate (units (unknown) date) 20 unknown) (unknown) (no (unknown) (unknown) Review of (units (unkn own) date) Systems unknown) (unknown) (no (unknown) (unknown) Rx Instructions: (units (unknown) date) unknown) (unknown) (no (unknown) (unknown) SKIN: Denies (units (u nknown) date) rash, skin unknown) lesions, or other (unknown) (no (unknown) (unknown) SKIN: No rash or (units (unknown) date) erythema of unknown) visible areas (unknown) (no (unknown) (unknown) 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 unknown) (unknown) (no (unknown) (unknown) Signed By: (units (unk nown) date) unknown) (unknown) (no (unknown) (unknown) Smoking Status: (units (unknown) date) Current some day unknown) smoker (unknown) (no (unknown) (unknown) Social History (units (unknown) date) (Reviewed unknown) 07/13/22 @ 06:20 by Stephan Issa DO) (unknown) (no (unknown) (unknown) Stated (units (unkno wn) date) Complaint: neck unknown) and back pain (unknown) (no (unknown) (unknown) Substance Use (units ( unknown) date) Type: marijuana unknown) (unknown) (no (unknown) (unknown) Surgical History (units (unknown) date) (Reviewed unknown) 07/13/22 @ 06:20 by Stephan Issa DO) (unknown) (no (unknown) (unknown) Take 1 capsule (units (unknown) date) by mouth twice a unknown) day for chronic back pain (unknown) (no (unknown) (unknown) Take 1 tablet by (units (unknown) date) mouth twice a day unknown) (unknown) (no (unknown) (unknown) Temperature 97.7 (units (unknown) date) F 07/13/22 06:14 unknown) (unknown) (no (unknown) (unknown) Temperature 97.7 (units (unknown) date) F unknown) (unknown) (no (unknown) (unknown) Time Seen by (units (u nknown) date) Provider: unknown) 07/13/22 06:07 (unknown) (no (unknown) (unknown) Vital Signs - 8 (units (unknown) date) hr unknown) (unknown) (no (unknown) (unknown) Vital Signs (units (un known) date) unknown) (unknown) (no (unknown) (unknown) Vital signs: (units (u nknown) date) unknown) (unknown) (no (unknown) (unknown) Danika García, (units (unknown) date) KIANNA [Primary unknown) Care Provider] (unknown) (no (unknown) (unknown) alcohol intake (units (unknown) date) frequency: unknown) holidays/special occasions only (unknown) (no (unknown) (unknown) alcohol intake: (units (unknown) date) current unknown) (unknown) (no (unknown) (unknown) and back pain (units ( unknown) date) after falling out unknown) of bed and laying on the floor. He states he (unknown) (no (unknown) (unknown) constipation, (units ( unknown) date) melena. unknown) (unknown) (no (unknown) (unknown) depressed skull (units (unknown) date) fracture unknown) (unknown) (no (unknown) (unknown) dizziness. (units (unk nown) date) unknown) (unknown) (no (unknown) (unknown) gabapentin (units (unk nown) date) AdvReac Shakiness unknown) Verified 10/16/21 09:17 (unknown) (no (unknown) (unknown) has increased (units ( unknown) date) pain with motion unknown) and improvement with rest. He denies any new (unknown) (no (unknown) (unknown) household (units (unkn own) date) members: spouse, unknown) children, friend(s) and other (unknown) (no (unknown) (unknown) leave on most (units ( unknown) date) painful area for unknown) 12 hrs (unknown) (no (unknown) (unknown) lidocaine 5 % (units ( unknown) date) topical patch 1 unknown) patch topical DAILY #15 ea 07/11/22 (unknown) (no (unknown) (unknown) lidocaine (units (unkn own) date) [Lidoderm] 5 % unknown) adhesive patch,medicated (unknown) (no (unknown) (unknown) loading (units (unkno wn) date) unknown) (unknown) (no (unknown) (unknown) metoprolol (units (unk nown) date) tartrate 50 mg unknown) tablet 50 mg PO BID 10/15/21 10/15/21 (unknown) (no (unknown) (unknown) metoprolol (units (unk nown) date) tartrate 50 mg unknown) tablet (unknown) (no (unknown) (unknown) midline neck and (units (unknown) date) back pain after unknown) an apparent fall. He does not know exactly (unknown) (no (unknown) (unknown) mild distress. (units (unknown) date) GCS 15 unknown) (unknown) (no (unknown) (unknown) morphine Allergy (units (unknown) date) Nightmare unknown) Verified 10/16/21 09:17 (unknown) (no (unknown) (unknown) numbness or (units (un known) date) tingling but is a unknown) known paraplegic. He denies any blurred vision, (unknown) (no (unknown) (unknown) pregabalin 300 (units (unknown) date) mg capsule unknown) (Lyrica) 300 mg PO BID 10/15/21 10/15/21 (unknown) (no (unknown) (unknown) pregabalin (units (unk nown) date) [Lyrica] 300 mg unknown) capsule (unknown) (no (unknown) (unknown) rales, or (units (unkn own) date) rhonchi. unknown) (unknown) (no (unknown) (unknown) seizures, (units (unkn own) date) incoordination. unknown) (unknown) (no (unknown) (unknown) sharp and (units (unkn own) date) stabbing left rib unknown) pain that has been present for quite some time. EMS (unknown) (no (unknown) (unknown) spine, no (units (unkn own) date) step-offs, unknown) crepitance or ecchymosis noted, no change with axial (unknown) (no (unknown) (unknown) states that he (units (unknown) date) was transported unknown) to another emergency department multiple times (unknown) (no (unknown) (unknown) tonsillar (units (unkn own) date) hypertrophy or unknown) exudate. Airway patent. (unknown) (no (unknown) (unknown) trouble with (units (u nknown) date) speech or unknown) vomiting. He is had no fever or chills. He does have a (unknown) (no (unknown) (unknown) what happened (units ( unknown) date) but EMS was unknown) activated to evaluate him with complaint of head neck (unknown) (no (unknown) (unknown) with (units (unkno wn) date) this?presents by unknown) EMS for evaluation of a sharp left anterior chest pain, (unknown) (no (unknown) (unknown) yesterday (units (unkn own) date) unknown) Result panel [id number] (unknown) (no (unknown) (unknown) (no value) (units (unk nown) date) unknown) (unknown) (no (unknown) (unknown) (Lidoderm) (units (unk nown) date) unknown) (unknown) (no (unknown) (unknown) (More??) (units (unkno wn) date) unknown) (unknown) (no (unknown) (unknown) *If you do not (units (unknown) date) have a primary unknown) care provider please contact the [facility] (unknown) (no (unknown) (unknown) *Please continue (units (unknown) date) to take your unknown) regular medications as directed. (unknown) (no (unknown) (unknown) *Please follow up (units (unknown) date) with your primary unknown) care provider in 2-3 days, call for an (unknown) (no (unknown) (unknown) *Return to (units (unk nown) date) Emergency unknown) Department if you should have any new, worsening or (unknown) (no (unknown) (unknown) *What to do: (units (u nknown) date) unknown) (unknown) (no (unknown) (unknown) *You have been (units ( unknown) date) diagnosed with unknown) [neck and back pain without any evidence traumatic (unknown) (no (unknown) (unknown) 10/15/21 (units (unkno wn) date) unknown) (unknown) (no (unknown) (unknown) 10/16/21 (units (unkno wn) date) unknown) (unknown) (no (unknown) (unknown) 10/27/21 (units (unkno wn) date) unknown) (unknown) (no (unknown) (unknown) 10/31/21 (units (unkno wn) date) unknown) (unknown) (no (unknown) (unknown) [id number] (units (unkno wn) date) unknown) (unknown) (no (unknown) (unknown) 06:14 (units (unkno wn) date) unknown) (unknown) (no (unknown) (unknown) 1 patch TOP DAILY (units (unknown) date) Qty: 15 0RF unknown) (unknown) (no (unknown) (unknown) 1. No evidence (units (unknown) date) acute fracture or unknown) dislocation. (unknown) (no (unknown) (unknown) 1. Remote (units (unkn own) date) posterior unknown) laminectomy at T8 and T9. (unknown) (no (unknown) (unknown) 05/31/21 (units (unkno wn) date) unknown) (unknown) (no (unknown) (unknown) 07/11/22 (units (unkno wn) date) unknown) (unknown) (no (unknown) (unknown) 07/13/22 06:08 (units (unknown) date) unknown) (unknown) (no (unknown) (unknown) 07/13/22 (units (unkno wn) date) unknown) (unknown) (no (unknown) (unknown) 12 point review (units (unknown) date) of systems is unknown) negative except for those stated above (unknown) (no (unknown) (unknown) [address] [place] [address] (units (unknown) date) unknown) (unknown) (no (unknown) (unknown) 2. No canal (units (un known) date) stenosis. unknown) (unknown) (no (unknown) (unknown) 2. No evidence of (units (unknown) date) acute thoracic unknown) fracture or dislocation. (unknown) (no (unknown) (unknown) 3. Bilateral (units (u nknown) date) facet hypertrophy unknown) at L5-S1 results in foraminal stenosis. (unknown) (no (unknown) (unknown) 3. Question (units (un known) date) dependent change unknown) versus very mild unilateral pulmonary edema. (unknown) (no (unknown) (unknown) 300 mg PO BID (units ( unknown) date) unknown) (unknown) (no (unknown) (unknown) 4. Probable (units (un known) date) sebaceous cyst unknown) overlying T10. 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 (units (unkno wn) date) unknown) (unknown) (no (unknown) (unknown) ? (units (unkno wn) date) unknown) (unknown) (no (unknown) (unknown) Accession Number: (units (unknown) date) [id number] ?? unknown) (unknown) (no (unknown) (unknown) Accession Number: (units (unknown) date) [id number] ?? unknown) (unknown) (no (unknown) (unknown) Accession Number: (units (unknown) date) [id number] ?? unknown) (unknown) (no (unknown) (unknown) Accession Number: (units (unknown) date) [id number] ?? unknown) (unknown) (no (unknown) (unknown) Acct:[id number] (units (unknown) date) unknown) (unknown) (no (unknown) (unknown) Activity (units (unkno wn) date) Restrictions/Addit unknown) ional Instructions: (unknown) (no (unknown) (unknown) Age/Sex: 47 / M (units (unknown) date) unknown) (unknown) (no (unknown) (unknown) Allergies (units (unkn own) date) unknown) (unknown) (no (unknown) (unknown) Allergy/Adv: (units (u nknown) date) morphine, unknown) gabapentin (unknown) (no (unknown) (unknown) Allergy/AdvReac (units (unknown) date) Type Severity unknown) Reaction Status Date / Time (unknown) (no (unknown) (unknown) MELVINA Deng (units ( unknown) date) [id number] unknown) (unknown) (no (unknown) (unknown) Approved by: (units (u nknown) date) daryl Rosario) Marcial on 07/13/2022 at 8:00 ? (unknown) (no (unknown) (unknown) Approved by: (units (u nknown) date) daryl Rosario) Marcial on 07/13/2022 at 8:05 ? (unknown) (no (unknown) (unknown) Approved by: (units (u nknown) date) Zaid Medel M.D. unknown) on 07/13/2022 at 7:42 ? (unknown) (no (unknown) (unknown) Approved by: (units (u nknown) date) Zaid Medel M.D. unknown) on 07/13/2022 at 7:46 ? (unknown) (no (unknown) (unknown) BACK: Nontender (units (unknown) date) without deformity unknown) or crepitance. No flank tenderness. (unknown) (no (unknown) (unknown) Back pain (units (unkn own) date) unknown) (unknown) (no (unknown) (unknown) Yann Bush Sr (units ( unknown) date) W?(Yann)??47??M?? unknown) 1975 (unknown) (no (unknown) (unknown) Blood Pressure (units (unknown) date) 170/98 H 07/13/22 unknown) 06:14 (unknown) (no (unknown) (unknown) Blood Pressure (units (unknown) date) 170/98 H unknown) (unknown) (no (unknown) (unknown) Bones:? No (units (unk nown) date) fractures or unknown) dislocations.? Visualized superior ribs are intact.? (unknown) (no (unknown) (unknown) Bones:? There is (units (unknown) date) normal bony unknown) alignment.? No acute vertebral body compression (unknown) (no (unknown) (unknown) Bones:? There is (units (unknown) date) normal overall unknown) bony alignment.? Remote laminectomy at T8 and (unknown) (no (unknown) (unknown) Brain:? No (units (unk nown) date) midline shift.? No unknown) intracranial masses or hemorrhage.? [place]raal-white (unknown) (no (unknown) (unknown) CARDIOVASCULAR: (units (unknown) date) Denies chest pain, unknown) palpitations, orthopnea, edema, (unknown) (no (unknown) (unknown) CARDIOVASCULAR: (units (unknown) date) Regular rate and unknown) rhythm without murmurs, gallops, or rubs. (unknown) (no (unknown) (unknown) COMPARISON:? (units (u nknown) date) [facility], unknown) CT, CT THORACIC SPINE WO CON, 07/13/2022, 6:16. (unknown) (no (unknown) (unknown) COMPARISON:? (units (u nknown) date) None. unknown) (unknown) (no (unknown) (unknown) CSF spaces:? (units (u nknown) date) Basal cisterns are unknown) patent.? No extra-axial fluid collections.? (unknown) (no (unknown) (unknown) CT - cervical (units ( unknown) date) spine: unknown) (unknown) (no (unknown) (unknown) CT Scan Report (units (unknown) date) unknown) (unknown) (no (unknown) (unknown) CT cervical spine (units (unknown) date) wo con Stat unknown) (unknown) (no (unknown) (unknown) CT head/brain wo (units (unknown) date) con Stat unknown) (unknown) (no (unknown) (unknown) CT lumbar spine (units (unknown) date) wo con Stat unknown) (unknown) (no (unknown) (unknown) CT scan - head: (units (unknown) date) unknown) (unknown) (no (unknown) (unknown) CT thoracic spine (units (unknown) date) wo con Stat unknown) (unknown) (no (unknown) (unknown) Call,Zaid (units (unk nown) date) unknown) (unknown) (no (unknown) (unknown) Danica,Audra (units (unknown) date) unknown) (unknown) (no (unknown) (unknown) Cervical Spine CT (units (unknown) date) (Signed) unknown) (unknown) (no (unknown) (unknown) Chest X-Ray (units (un known) date) (Signed) unknown) (unknown) (no (unknown) (unknown) Chief Complaint: (units (unknown) date) Neck Pain/Injury unknown) (unknown) (no (unknown) (unknown) Clinical (units (unkno wn) date) Impression: unknown) (unknown) (no (unknown) (unknown) Close (units (unkno wn) date) unknown) (unknown) (no (unknown) (unknown) Comment: Final (units (unknown) date) report is unknown) concordant with preliminary interpretation provided by (unknown) (no (unknown) (unknown) Course (units (unkno wn) date) unknown) (unknown) (no (unknown) (unknown) : 1975 (units (unknown) date) Acct:[id number] unknown) (unknown) (no (unknown) (unknown) : 1975 (units (unknown) date) unknown) (unknown) (no (unknown) (unknown) Date of Service: (units (unknown) date) 07/13/22 unknown) (unknown) (no (unknown) (unknown) Departure (units (unkn own) date) unknown) (unknown) (no (unknown) (unknown) Dictated by: (units (u nknown) date) Gerry Mondragon, unknown) Marcial on 07/13/2022 at 7:57 ? ? (unknown) (no (unknown) (unknown) Dictated by: (units (u nknown) date) Gerry Mondragon, daryl) Marcial on 07/13/2022 at 8:00 ? ? (unknown) (no (unknown) (unknown) Dictated by: (units (u nknown) date) Zaid Medel M.D. unknown) on 07/13/2022 at 7:40 ? ? (unknown) (no (unknown) (unknown) Dictated by: (units (u nknown) date) Zaid Medel M.D. unknown) on 07/13/2022 at 7:42 ? ? (unknown) (no (unknown) (unknown) Discharge Plan (units (unknown) date) unknown) (unknown) (no (unknown) (unknown) ED Orders (units (unkn own) date) unknown) (unknown) (no (unknown) (unknown) ENT: Nose without (units (unknown) date) bleeding, purulent unknown) drainage. Throat without erythema, (unknown) (no (unknown) (unknown) ER Physician: (units ( unknown) date) Stephan Issa D.O. unknown) (unknown) (no (unknown) (unknown) EYES: Pupils (units (u nknown) date) equal round and unknown) reactive. No hyphema Extraocular motions intact. (unknown) (no (unknown) (unknown) Echocardiogram (units (unknown) date) Ultrasound unknown) (Signed) (unknown) (no (unknown) (unknown) Emergency Report (units (unknown) date) unknown) (unknown) (no (unknown) (unknown) Exam Narrative: (units (unknown) date) unknown) (unknown) (no (unknown) (unknown) Exam (units (unkno wn) date) unknown) (unknown) (no (unknown) (unknown) FINDINGS:? (units (unk nown) date) unknown) (unknown) (no (unknown) (unknown) Family History (units (unknown) date) (Reviewed 07/13/22 unknown) @ 06:20 by Stephan Issa DO) (unknown) (no (unknown) (unknown) Father CVA (units (unk nown) date) (cerebral vascular unknown) accident) (unknown) (no (unknown) (unknown) Functional (units (unk nown) date) paraparesis unknown) (unknown) (no (unknown) (unknown) GASTROINTESTINAL: (units (unknown) date) Abdomen soft, unknown) non-tender, nondistended. (unknown) (no (unknown) (unknown) GASTROINTESTINAL: (units (unknown) date) Denies nausea, unknown) vomiting, abdominal pain, diarrhea, (unknown) (no (unknown) (unknown) GENERAL: Denies (units (unknown) date) chills, fatigue, unknown) malaise, fever, sweats. (unknown) (no (unknown) (unknown) GENERAL: [47] (units ( unknown) date) year old patient unknown) appears stated age. Well-developed patient, in (unknown) (no (unknown) (unknown) : Denies (units (unk nown) date) dysuria, unknown) frequency, incontinence, hematuria, urinary retention. (unknown) (no (unknown) (unknown) General (units (unkno wn) date) unknown) (unknown) (no (unknown) (unknown) Kwame,Marge (units ( unknown) date) unknown) (unknown) (no (unknown) (unknown) HEAD: Atraumatic. (units (unknown) date) Normocephalic. No unknown) contusion, abrasion or evidence of (unknown) (no (unknown) (unknown) HEENT: Denies (units ( unknown) date) sinus pain, ear unknown) pain, sore throat, difficulty swallowing, (unknown) (no (unknown) (unknown) HPI - Back (units (unk nown) date) Pain/Injury unknown) (unknown) (no (unknown) (unknown) HPI Narrative: (units (unknown) date) unknown) (unknown) (no (unknown) (unknown) Head CT (Signed) (units (unknown) date) unknown) (unknown) (no (unknown) (unknown) History of (units (unk nown) date) Present Illness unknown) (unknown) (no (unknown) (unknown) History of spinal (units (unknown) date) surgery unknown) (unknown) (no (unknown) (unknown) History of (units (unk nown) date) tonsillectomy unknown) (unknown) (no (unknown) (unknown) Home Medications (units (unknown) date) unknown) (unknown) (no (unknown) (unknown) Hypertension (units (u nknown) date) unknown) (unknown) (no (unknown) (unknown) IMPRESSION:? (units (u nknown) date) unknown) (unknown) (no (unknown) (unknown) INDICATIONS:? (units ( unknown) date) fall with head unknown) injury (unknown) (no (unknown) (unknown) INDICATIONS:? (units ( unknown) date) fall with midline unknown) back pain (unknown) (no (unknown) (unknown) INDICATIONS:? (units ( unknown) date) fall with neck unknown) pain (unknown) (no (unknown) (unknown) Image quality:? (units (unknown) date) Excellent.? unknown) (unknown) (no (unknown) (unknown) Image quality:? (units (unknown) date) Good.? Motion unknown) artifact at the level of C6.? (unknown) (no (unknown) (unknown) Imaging Data (units (u nknown) date) unknown) (unknown) (no (unknown) (unknown) Initial Vital (units ( unknown) date) Signs unknown) (unknown) (no (unknown) (unknown) Initial Vital (units ( unknown) date) Signs: unknown) (unknown) (no (unknown) (unknown) Instructions: DI (units (unknown) date) for Neck Pain unknown) (unknown) (no (unknown) (unknown) [facility] (units (unknown) date) [address] [place] [address] unknown) [place] [address] (unknown) (no (unknown) (unknown) [facility] (units (unknown) date) unknown) (unknown) (no (unknown) (unknown) Gerry Mondragon (units (unknown) date) unknown) (unknown) (no (unknown) (unknown) Knee X-Ray (units (unk nown) date) (Signed) unknown) (unknown) (no (unknown) (unknown) L Spine: (units (unkno wn) date) unknown) (unknown) (no (unknown) (unknown) L1-L2:? No canal (units (unknown) date) stenosis or unknown) foraminal stenosis. (unknown) (no (unknown) (unknown) L2-L3:? No canal (units (unknown) date) stenosis or unknown) foraminal stenosis. (unknown) (no (unknown) (unknown) L3-L4:? No canal (units (unknown) date) stenosis or unknown) foraminal stenosis. (unknown) (no (unknown) (unknown) L4-L5:? No canal (units (unknown) date) stenosis or unknown) foraminal stenosis. (unknown) (no (unknown) (unknown) L5-S1:? There is (units (unknown) date) bilateral facet unknown) hypertrophy.? No canal stenosis.? There is (unknown) (no (unknown) (unknown) Label Comments: (units (unknown) date) unknown) (unknown) (no (unknown) (unknown) Launch?Image (units (u nknown) date) unknown) (unknown) (no (unknown) (unknown) Left (units (unkno wn) date) unknown) (unknown) (no (unknown) (unknown) Loc: ED (units (unkno wn) date) unknown) (unknown) (no (unknown) (unknown) Lumbar Spine CT (units (unknown) date) (Signed) unknown) (unknown) (no (unknown) (unknown) MDM - Back (units (unk nown) date) Pain/Injury unknown) (unknown) (no (unknown) (unknown) MR#: [id number] (units (unknown) date) unknown) (unknown) (no (unknown) (unknown) MUSCULOSKELETAL: (units (unknown) date) See HPI unknown) (unknown) (no (unknown) (unknown) Medical History (units (unknown) date) (Reviewed 07/13/22 unknown) @ 06:20 by Stephan Issa DO) (unknown) (no (unknown) (unknown) Medication (units (unk nown) date) Instructions unknown) Recorded Confirmed (unknown) (no (unknown) (unknown) Medication (units (unk nown) date) Instructions unknown) Recorded (unknown) (no (unknown) (unknown) Mother Myocardial (units (unknown) date) infarct unknown) (unknown) (no (unknown) (unknown) NECK: Trachea (units ( unknown) date) midline. Midline unknown) tenderness of entire cervical and upper thoracic (unknown) (no (unknown) (unknown) NEURO: AOx3. (units (u nknown) date) unknown) (unknown) (no (unknown) (unknown) NEUROLOGIC: (units (un known) date) Denies weakness, unknown) headache, numbness, change in speech, confusion, (unknown) (no (unknown) (unknown) Narrative (units (unkn own) date) unknown) (unknown) (no (unknown) (unknown) Narrative: (units (unk nown) date) unknown) (unknown) (no (unknown) (unknown) Neurogenic pain (units (unknown) date) unknown) (unknown) (no (unknown) (unknown) No Action (units (unkn own) date) unknown) (unknown) (no (unknown) (unknown) No acute (units (unkno wn) date) intracranial unknown) abnormality. (unknown) (no (unknown) (unknown) No acute osseous (units (unknown) date) abnormality. unknown) (unknown) (no (unknown) (unknown) No scleral (units (unk nown) date) icterus. No unknown) injection or drainage. (unknown) (no (unknown) (unknown) No suspicious (units ( unknown) date) lytic or blastic unknown) bony lesions.? No pars defects.? (unknown) (no (unknown) (unknown) Noncontrast 3 mm (units (unknown) date) thick sections unknown) acquired from the T12 level to the sacrum.? (unknown) (no (unknown) (unknown) Noncontrast 3 mm (units (unknown) date) thick sections unknown) acquired from the skull base to the T4 level.? (unknown) (no (unknown) (unknown) Noncontrast 3 mm (units (unknown) date) thick sections unknown) acquired through the region of interest in the (unknown) (no (unknown) (unknown) Noncontrast 4.5 (units (unknown) date) mm thick angled unknown) axial sections acquired from the foramen magnum (unknown) (no (unknown) (unknown) Ordered: (units (unkno wn) date) unknown) (unknown) (no (unknown) (unknown) Ordering (units (unkno wn) date) Provider: unknown) Stephan Issa D.O. (unknown) (no (unknown) (unknown) Orders (units (unkno wn) date) unknown) (unknown) (no (unknown) (unknown) Oxygen Delivery (units (unknown) date) Method 07/13/22 unknown) 06:14 (unknown) (no (unknown) (unknown) Oxygen Delivery (units (unknown) date) Method Room Air unknown) (unknown) (no (unknown) (unknown) PROCEDURE:? CT (units (unknown) date) CERVICAL SPINE WO unknown) CON (unknown) (no (unknown) (unknown) PROCEDURE:? CT (units (unknown) date) HEAD/BRAIN WO CON unknown) (unknown) (no (unknown) (unknown) PROCEDURE:? CT (units (unknown) date) LUMBAR SPINE WO unknown) CON (unknown) (no (unknown) (unknown) PROCEDURE:? CT (units (unknown) date) THORACIC SPINE WO unknown) CON (unknown) (no (unknown) (unknown) PSYCHIATRIC: No (units (unknown) date) concerning unknown) psychosocial issues. (unknown) (no (unknown) (unknown) Patient (units (unkno wn) date) Disposition: Home unknown) (unknown) (no (unknown) (unknown) Patient History (units (unknown) date) unknown) (unknown) (no (unknown) (unknown) Patient: Eleazar (units ( unknown) date) Yann Jones MR#: unknown) M00 (unknown) (no (unknown) (unknown) Patient: Eleazar (units ( unknown) date) Yann Jones unknown) (unknown) (no (unknown) (unknown) Hossein Almanzar (units (un known) date) unknown) (unknown) (no (unknown) (unknown) Prescriptions: (units (unknown) date) unknown) (unknown) (no (unknown) (unknown) Previous Rx's (units ( unknown) date) unknown) (unknown) (no (unknown) (unknown) Procedure: CT (units ( unknown) date) cervical spine wo unknown) con (unknown) (no (unknown) (unknown) Procedure: CT (units ( unknown) date) head/brain wo con unknown) (unknown) (no (unknown) (unknown) Procedure: CT (units ( unknown) date) lumbar spine wo unknown) con (unknown) (no (unknown) (unknown) Procedure: CT (units ( unknown) date) thoracic spine wo unknown) con (unknown) (no (unknown) (unknown) Pulse Oximetry 99 (units (unknown) date) 07/13/22 06:14 unknown) (unknown) (no (unknown) (unknown) Pulse Oximetry 99 (units (unknown) date) unknown) (unknown) (no (unknown) (unknown) Pulse Rate 76 (units ( unknown) date) 07/13/22 06:14 unknown) (unknown) (no (unknown) (unknown) Pulse Rate 76 (units ( unknown) date) unknown) (unknown) (no (unknown) (unknown) RESPIRATORY: Clear (units (unknown) date) to auscultation. unknown) Breath sounds equal bilaterally. No wheezes, (unknown) (no (unknown) (unknown) RESPIRATORY: (units (u nknown) date) Denies dyspnea, unknown) cough, wheezing, hemoptysis, sputum. (unknown) (no (unknown) (unknown) Radiologist's (units ( unknown) date) Impression: unknown) (unknown) (no (unknown) (unknown) Radiology (units (unkn own) date) Services. unknown) (unknown) (no (unknown) (unknown) Radiology (units (unkn own) date) Services.? unknown) (unknown) (no (unknown) (unknown) Real (units (unkno wn) date) unknown) (unknown) (no (unknown) (unknown) Referrals: (units (unk nown) date) unknown) (unknown) (no (unknown) (unknown) Related Data (units (u nknown) date) unknown) (unknown) (no (unknown) (unknown) Resource line at (units (unknown) date) [phone]. They unknown) will ask some questions about your medical (unknown) (no (unknown) (unknown) Respiratory Rate (units (unknown) date) 20 07/13/22 06:14 unknown) (unknown) (no (unknown) (unknown) Respiratory Rate (units (unknown) date) 20 unknown) (unknown) (no (unknown) (unknown) Review of Systems (units (unknown) date) unknown) (unknown) (no (unknown) (unknown) Rx Instructions: (units (unknown) date) unknown) (unknown) (no (unknown) (unknown) SKIN: Denies (units (u nknown) date) rash, skin unknown) lesions, or other (unknown) (no (unknown) (unknown) SKIN: No rash or (units (unknown) date) erythema of unknown) visible areas (unknown) (no (unknown) (unknown) Sagittal and (units (u nknown) date) unknown) (unknown) (no (unknown) (unknown) Sagittal (units (unkno wn) date) unknown) (unknown) (no (unknown) (unknown) 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 Trace (units (unknown) date) mucosal thickening unknown) in the maxillary sinuses and sphenoid (unknown) (no (unknown) (unknown) Skull and face:? (units (unknown) date) Calvarium and unknown) visualized facial bones are intact, without (unknown) (no (unknown) (unknown) Smoking Status: (units (unknown) date) Current some day unknown) smoker (unknown) (no (unknown) (unknown) Social History (units (unknown) date) (Reviewed 07/13/22 unknown) @ 06:20 by Stephan Issa DO) (unknown) (no (unknown) (unknown) Soft tissues:? No (units (unknown) date) paravertebral unknown) masses or hematomas.? Visualized posteromedial (unknown) (no (unknown) (unknown) Soft tissues:? No (units (unknown) date) retroperitoneal unknown) masses or hematomas.? Visualized aorta is (unknown) (no (unknown) (unknown) Soft tissues:? (units (unknown) date) Prevertebral soft unknown) tissues are normal in thickness.? No (unknown) (no (unknown) (unknown) Stated Complaint: (units (unknown) date) neck and back pain unknown) (unknown) (no (unknown) (unknown) Nitesh Rahman (units (unknown) date) unknown) (unknown) (no (unknown) (unknown) Strain of neck (units (unknown) date) muscle, Strain of unknown) thoracic region (unknown) (no (unknown) (unknown) Substance Use (units ( unknown) date) Type: marijuana unknown) (unknown) (no (unknown) (unknown) Surgical History (units (unknown) date) (Reviewed 07/13/22 unknown) @ 06:20 by Stephan Issa DO) (unknown) (no (unknown) (unknown) T spine: (units (unkno wn) date) unknown) (unknown) (no (unknown) (unknown) T12-L1:? No canal (units (unknown) date) stenosis or unknown) foraminal stenosis. (unknown) (no (unknown) (unknown) T9.? No (units (unkno wn) date) unknown) (unknown) (no (unknown) (unknown) TECHNIQUE:? (units (un known) date) unknown) (unknown) (no (unknown) (unknown) Take 1 capsule by (units (unknown) date) mouth twice a day unknown) for chronic back pain (unknown) (no (unknown) (unknown) Take 1 tablet by (units (unknown) date) mouth twice a day unknown) (unknown) (no (unknown) (unknown) Telemetry Strips (units (unknown) date) unknown) (unknown) (no (unknown) (unknown) Temperature 97.7 (units (unknown) date) F 07/13/22 06:14 unknown) (unknown) (no (unknown) (unknown) Temperature 97.7 (units (unknown) date) F unknown) (unknown) (no (unknown) (unknown) This report is (units (unknown) date) concordant with unknown) the overnight preliminary interpretation. (unknown) (no (unknown) (unknown) Thoracic Spine CT (units (unknown) date) (Signed) unknown) (unknown) (no (unknown) (unknown) Thoracic Spine (units (unknown) date) MRI (Signed) unknown) (unknown) (no (unknown) (unknown) Tibia/Fibula (units (u nknown) date) X-Ray (Signed) unknown) (unknown) (no (unknown) (unknown) Time Seen by (units (u nknown) date) Provider: 07/13/22 unknown) 06:07 (unknown) (no (unknown) (unknown) Ventricles (units (unk nown) date) unknown) (unknown) (no (unknown) (unknown) Vital Signs - 8 (units (unknown) date) hr unknown) (unknown) (no (unknown) (unknown) Vital Signs (units (un known) date) unknown) (unknown) (no (unknown) (unknown) Vital signs: (units (u nknown) date) unknown) (unknown) (no (unknown) (unknown) Danika García, (units (unknown) date) KIANNA [Primary Care unknown) Provider] (unknown) (no (unknown) (unknown) Reggie Enamorado (units (unkno wn) date) unknown) (unknown) (no (unknown) (unknown) [ ] New (units (unkno wn) date) medication unknown) prescriptions sent to your pharmacy: [ ] (unknown) (no (unknown) (unknown) [ ] New (units (unkno wn) date) medication written unknown) as a paper prescription (unknown) (no (unknown) (unknown) [ ] No new (units (unk nown) date) medications given unknown) (unknown) (no (unknown) (unknown) acute vertebral (units (unknown) date) body compression unknown) fractures.? No suspicious sclerotic or lytic (unknown) (no (unknown) (unknown) alcohol intake (units (unknown) date) frequency: unknown) holidays/special occasions only (unknown) (no (unknown) (unknown) alcohol intake: (units (unknown) date) current unknown) (unknown) (no (unknown) (unknown) and back pain (units ( unknown) date) after falling out unknown) of bed and laying on the floor. He states he (unknown) (no (unknown) (unknown) and coronal (units (un known) date) reformats were unknown) then constructed.? For radiation dose reduction, the (unknown) (no (unknown) (unknown) appear clear.? (units ( unknown) date) There is unknown) interstitial change in the periphery of the right lung.? (unknown) (no (unknown) (unknown) appointment. Let (units (unknown) date) them know you were unknown) seen in the Emergency Department and that we (unknown) (no (unknown) (unknown) are normal in (units ( unknown) date) size and shape.? unknown) (unknown) (no (unknown) (unknown) ask that you be (units (unknown) date) seen in follow up. unknown) We will electronically transmit a record of (unknown) (no (unknown) (unknown) bilateral (units (unkn own) date) foraminal unknown) narrowing. (unknown) (no (unknown) (unknown) bony (units (unkno wn) date) unknown) (unknown) (no (unknown) (unknown) caliber.? (units (unkn own) date) Bilateral ureteral unknown) stents are noted to be in place.? There is mild (unknown) (no (unknown) (unknown) concerning (units (unk nown) date) symptoms, such as unknown) [fever greater than 101 F, shaking chills, (unknown) (no (unknown) (unknown) constipation, (units ( unknown) date) melena. unknown) (unknown) (no (unknown) (unknown) coronal reformats (units (unknown) date) were constructed.? unknown) For radiation dose reduction, the following (unknown) (no (unknown) (unknown) cyst. (units (unkno wn) date) unknown) (unknown) (no (unknown) (unknown) depressed skull (units (unknown) date) fracture unknown) (unknown) (no (unknown) (unknown) dizziness. (units (unk nown) date) unknown) (unknown) (no (unknown) (unknown) dose (units (unkno wn) date) unknown) (unknown) (no (unknown) (unknown) following (units (unkn own) date) unknown) (unknown) (no (unknown) (unknown) fractures.? (units (un known) date) unknown) (unknown) (no (unknown) (unknown) gabapentin (units (unk nown) date) AdvReac Shakiness unknown) Verified 10/16/21 09:17 (unknown) (no (unknown) (unknown) has increased (units ( unknown) date) pain with motion unknown) and improvement with rest. He denies any new (unknown) (no (unknown) (unknown) hematomas.? No (units ( unknown) date) apical unknown) pneumothoraces.? Ground-glass opacity in the upper lobes.? (unknown) (no (unknown) (unknown) history and help (units (unknown) date) get you set up unknown) with a doctor in the community. (unknown) (no (unknown) (unknown) household (units (unkn own) date) members: spouse, unknown) children, friend(s) and other (unknown) (no (unknown) (unknown) injury] (units (unkno wn) date) unknown) (unknown) (no (unknown) (unknown) interface is (units (u nknown) date) normal.? unknown) (unknown) (no (unknown) (unknown) leave on most (units ( unknown) date) painful area for unknown) 12 hrs (unknown) (no (unknown) (unknown) lesions.? Central (units (unknown) date) spinal canal is of unknown) normal overall caliber.? (unknown) (no (unknown) (unknown) lesions.? (units (unkn own) date) unknown) (unknown) (no (unknown) (unknown) lidocaine 5 % (units ( unknown) date) topical patch 1 unknown) patch topical DAILY #15 ea 07/11/22 (unknown) (no (unknown) (unknown) lidocaine (units (unkn own) date) [Lidoderm] 5 % unknown) adhesive patch,medicated (unknown) (no (unknown) (unknown) loading (units (unkno wn) date) unknown) (unknown) (no (unknown) (unknown) lung is grossly (units (unknown) date) clear.? Based on unknown) the patient's positioning, the findings in the (unknown) (no (unknown) (unknown) lung may represent (units (unknown) date) dependent change.? unknown) Or, findings may represent unilateral very (unknown) (no (unknown) (unknown) lungs (units (unkno wn) date) unknown) (unknown) (no (unknown) (unknown) matter (units (unkno wn) date) unknown) (unknown) (no (unknown) (unknown) metoprolol (units (unk nown) date) tartrate 50 mg unknown) tablet 50 mg PO BID 10/15/21 10/15/21 (unknown) (no (unknown) (unknown) metoprolol (units (unk nown) date) tartrate 50 mg unknown) tablet (unknown) (no (unknown) (unknown) midline neck and (units (unknown) date) back pain after an unknown) apparent fall. He does not know exactly (unknown) (no (unknown) (unknown) mild distress. (units (unknown) date) GCS 15 unknown) (unknown) (no (unknown) (unknown) mild (units (unkno wn) date) unknown) (unknown) (no (unknown) (unknown) moderate (units (unkno wn) date) unknown) (unknown) (no (unknown) (unknown) morphine Allergy (units (unknown) date) Nightmare Verified unknown) 10/16/21 09:17 (unknown) (no (unknown) (unknown) normal in (units (unkn own) date) unknown) (unknown) (no (unknown) (unknown) numbness or (units (un known) date) tingling but is a unknown) known paraplegic. He denies any blurred vision, (unknown) (no (unknown) (unknown) of the renal (units (u nknown) date) collecting systems unknown) bilaterally.? (unknown) (no (unknown) (unknown) paranasal sinus (units (unknown) date) is are clear.? The unknown) mastoids are clear. (unknown) (no (unknown) (unknown) paravertebral (units ( unknown) date) unknown) (unknown) (no (unknown) (unknown) patient (units (unkno wn) date) unknown) (unknown) (no (unknown) (unknown) pregabalin 300 mg (units (unknown) date) capsule (Lyrica) unknown) 300 mg PO BID 10/15/21 10/15/21 (unknown) (no (unknown) (unknown) pregabalin (units (unk nown) date) [Lyrica] 300 mg unknown) capsule (unknown) (no (unknown) (unknown) prominence (units (unk nown) date) unknown) (unknown) (no (unknown) (unknown) pulmonary edema.? (units (unknown) date) Small cystic unknown) nodule, posterior to T10 likely represents a (unknown) (no (unknown) (unknown) rales, or (units (unkn own) date) rhonchi. unknown) (unknown) (no (unknown) (unknown) reduction, the (units (unknown) date) following was unknown) used:? automated exposure control.? (unknown) (no (unknown) (unknown) right (units (unkno wn) date) unknown) (unknown) (no (unknown) (unknown) sebaceous (units (unkn own) date) unknown) (unknown) (no (unknown) (unknown) seizures, (units (unkn own) date) incoordination. unknown) (unknown) (no (unknown) (unknown) sharp and (units (unkn own) date) stabbing left rib unknown) pain that has been present for quite some time. EMS (unknown) (no (unknown) (unknown) sinuses.? Other (units (unknown) date) unknown) (unknown) (no (unknown) (unknown) size.? (units (unkno wn) date) unknown) (unknown) (no (unknown) (unknown) spine, no (units (unkn own) date) step-offs, unknown) crepitance or ecchymosis noted, no change with axial (unknown) (no (unknown) (unknown) spine.? Sagittal (units (unknown) date) and coronal unknown) reformats were then constructed.? For radiation (unknown) (no (unknown) (unknown) states that he (units (unknown) date) was transported to unknown) another emergency department multiple times (unknown) (no (unknown) (unknown) suspicious (units (unk nown) date) unknown) (unknown) (no (unknown) (unknown) thoracic (units (unkno wn) date) unknown) (unknown) (no (unknown) (unknown) to the (units (unkno wn) date) unknown) (unknown) (no (unknown) (unknown) today's note if (units (unknown) date) your PCP is in our unknown) system (unknown) (no (unknown) (unknown) tonsillar (units (unkn own) date) hypertrophy or unknown) exudate. Airway patent. (unknown) (no (unknown) (unknown) trouble with (units (u nknown) date) speech or unknown) vomiting. He is had no fever or chills. He does have a (unknown) (no (unknown) (unknown) used:? automated (units (unknown) date) exposure control.? unknown) (unknown) (no (unknown) (unknown) vertex, with (units (u nknown) date) coronal and unknown) sagittal reformats.? For radiation dose reduction, the (unknown) (no (unknown) (unknown) was used:? (units (unk nown) date) automated exposure unknown) control, adjustment of mA and/or kV according to (unknown) (no (unknown) (unknown) was (units (unkno wn) date) unknown) (unknown) (no (unknown) (unknown) what happened but (units (unknown) date) EMS was activated unknown) to evaluate him with complaint of head neck (unknown) (no (unknown) (unknown) with (units (unkno wn) date) this?presents by unknown) EMS for evaluation of a sharp left anterior chest pain, (unknown) (no (unknown) (unknown) worsening pain, (units (unknown) date) persistent unknown) vomiting or other bothersome symptoms] (unknown) (no (unknown) (unknown) yesterday (units (unkn own) date) unknown) Result panel 1072 (unknown) (no (unknown) (unknown) (no value) (units (unk nown) date) unknown) (unknown) (no (unknown) (unknown) <Electronically (units (unknown) date) signed by Stephan unknown) Jesi Issa> (unknown) (no (unknown) (unknown) (Lidoderm) (units (unk nown) date) unknown) (unknown) (no (unknown) (unknown) (More??) (units (unkno wn) date) unknown) (unknown) (no (unknown) (unknown) *If you do not (units (unknown) date) have a primary unknown) care provider please contact the [facility] (unknown) (no (unknown) (unknown) *Please continue (units (unknown) date) to take your unknown) regular medications as directed. (unknown) (no (unknown) (unknown) *Please follow up (units (unknown) date) with your primary unknown) care provider in 2-3 days, call for an (unknown) (no (unknown) (unknown) *Return to (units (unk nown) date) Emergency unknown) Department if you should have any new, worsening or (unknown) (no (unknown) (unknown) *What to do: (units (u nknown) date) unknown) (unknown) (no (unknown) (unknown) *You have been (units ( unknown) date) diagnosed with unknown) [neck and back pain without any evidence traumatic (unknown) (no (unknown) (unknown) 10/15/21 (units (unkno wn) date) unknown) (unknown) (no (unknown) (unknown) 10/16/21 (units (unkno wn) date) unknown) (unknown) (no (unknown) (unknown) 10/27/21 (units (unkno wn) date) unknown) (unknown) (no (unknown) (unknown) 10/31/21 (units (unkno wn) date) unknown) (unknown) (no (unknown) (unknown) [id number] (units (unkno wn) date) unknown) (unknown) (no (unknown) (unknown) 06:14 (units (unkno wn) date) unknown) (unknown) (no (unknown) (unknown) 1 patch TOP DAILY (units (unknown) date) Qty: 15 0RF unknown) (unknown) (no (unknown) (unknown) 1. No evidence (units (unknown) date) acute fracture or unknown) dislocation. (unknown) (no (unknown) (unknown) 1. Remote (units (unkn own) date) posterior unknown) laminectomy at T8 and T9. (unknown) (no (unknown) (unknown) 05/31/21 (units (unkno wn) date) unknown) (unknown) (no (unknown) (unknown) 07/11/22 (units (unkno wn) date) unknown) (unknown) (no (unknown) (unknown) 07/13/22 (units (unkno wn) date) unknown) (unknown) (no (unknown) (unknown) 07/17/22 0059 (units ( unknown) date) unknown) (unknown) (no (unknown) (unknown) 12 point review (units (unknown) date) of systems is unknown) negative except for those stated above (unknown) (no (unknown) (unknown) [address] [place] [address] (units (unknown) date) unknown) (unknown) (no (unknown) (unknown) 2. No canal (units (un known) date) stenosis. unknown) (unknown) (no (unknown) (unknown) 2. No evidence of (units (unknown) date) acute thoracic unknown) fracture or dislocation. (unknown) (no (unknown) (unknown) 3. Bilateral (units (u nknown) date) facet hypertrophy unknown) at L5-S1 results in foraminal stenosis. (unknown) (no (unknown) (unknown) 3. Question (units (un known) date) dependent change unknown) versus very mild unilateral pulmonary edema. (unknown) (no (unknown) (unknown) 300 mg PO BID (units ( unknown) date) unknown) (unknown) (no (unknown) (unknown) 4. Probable (units (un known) date) sebaceous cyst unknown) overlying T10. 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 (units (unkno wn) date) unknown) (unknown) (no (unknown) (unknown) ? (units (unkno wn) date) unknown) (unknown) (no (unknown) (unknown) Accession Number: (units (unknown) date) [id number] ?? unknown) (unknown) (no (unknown) (unknown) Accession Number: (units (unknown) date) [id number] ?? unknown) (unknown) (no (unknown) (unknown) Accession Number: (units (unknown) date) [id number] ?? unknown) (unknown) (no (unknown) (unknown) Accession Number: (units (unknown) date) [id number] ?? unknown) (unknown) (no (unknown) (unknown) Acct:[id number] (units (unknown) date) unknown) (unknown) (no (unknown) (unknown) Acetaminophen (units ( unknown) date) (Ofirmev) 1,000 mg unknown) in 100 mls @ 400 mls/hr IV NOW ONE (unknown) (no (unknown) (unknown) Activity (units (unkno wn) date) Restrictions/Addit unknown) ional Instructions: (unknown) (no (unknown) (unknown) Admin: 07/13/22 (units (unknown) date) 08:36 Dose: 400 unknown) mls/hr (unknown) (no (unknown) (unknown) Age/Sex: 47 / M (units (unknown) date) unknown) (unknown) (no (unknown) (unknown) Allergies (units (unkn own) date) unknown) (unknown) (no (unknown) (unknown) Allergy/Adv: (units (u nknown) date) morphine, unknown) gabapentin (unknown) (no (unknown) (unknown) Allergy/AdvReac (units (unknown) date) Type Severity unknown) Reaction Status Date / Time (unknown) (no (unknown) (unknown) [place], [place] (units ( unknown) date) [address] unknown) (unknown) (no (unknown) (unknown) Approved by: (units (u nknown) date) Gerry Mondragon, unknown) Marcial on 07/13/2022 at 8:00 ? (unknown) (no (unknown) (unknown) Approved by: (units (u nknown) date) Gerry Mondragon, daryl) Marcial on 07/13/2022 at 8:05 ? (unknown) (no (unknown) (unknown) Approved by: (units (u nknown) date) Zaid Medel M.D. unknown) on 07/13/2022 at 7:42 ? (unknown) (no (unknown) (unknown) Approved by: (units (u nknown) date) Zaid Medel M.D. unknown) on 07/13/2022 at 7:46 ? (unknown) (no (unknown) (unknown) BACK: Nontender (units (unknown) date) without deformity unknown) or crepitance. No flank tenderness. (unknown) (no (unknown) (unknown) Back pain (units (unkn own) date) unknown) (unknown) (no (unknown) (unknown) Yann Bush Sr (units ( unknown) date) W?(Yann)??47??M?? unknown) 1975 (unknown) (no (unknown) (unknown) Blood Pressure (units (unknown) date) 170/98 H 07/13/22 unknown) 06:14 (unknown) (no (unknown) (unknown) Blood Pressure (units (unknown) date) 170/98 H unknown) (unknown) (no (unknown) (unknown) Bones:? No (units (unk nown) date) fractures or unknown) dislocations.? Visualized superior ribs are intact.? (unknown) (no (unknown) (unknown) Bones:? There is (units (unknown) date) normal bony unknown) alignment.? No acute vertebral body compression (unknown) (no (unknown) (unknown) Bones:? There is (units (unknown) date) normal overall unknown) bony alignment.? Remote laminectomy at T8 and (unknown) (no (unknown) (unknown) Brain:? No (units (unk nown) date) midline shift.? No unknown) intracranial masses or hemorrhage.? [place]-white (unknown) (no (unknown) (unknown) CARDIOVASCULAR: (units (unknown) date) Denies chest pain, unknown) palpitations, orthopnea, edema, (unknown) (no (unknown) (unknown) CARDIOVASCULAR: (units (unknown) date) Regular rate and unknown) rhythm without murmurs, gallops, or rubs. (unknown) (no (unknown) (unknown) COMPARISON:? (units (u nknown) date) [facility], unknown) CT, CT THORACIC SPINE WO CON, 07/13/2022, 6:16. (unknown) (no (unknown) (unknown) COMPARISON:? (units (u nknown) date) None. unknown) (unknown) (no (unknown) (unknown) CSF spaces:? (units (u nknown) date) Basal cisterns are unknown) patent.? No extra-axial fluid collections.? (unknown) (no (unknown) (unknown) CT - cervical (units ( unknown) date) spine: unknown) (unknown) (no (unknown) (unknown) CT Scan Report (units (unknown) date) unknown) (unknown) (no (unknown) (unknown) CT scan - head: (units (unknown) date) unknown) (unknown) (no (unknown) (unknown) Josemanuel Medelwn (units (unk nown) date) unknown) (unknown) (no (unknown) (unknown) Audra Mishra (units (unknown) date) unknown) (unknown) (no (unknown) (unknown) Cervical Spine CT (units (unknown) date) (Signed) unknown) (unknown) (no (unknown) (unknown) Chest X-Ray (units (un known) date) (Signed) unknown) (unknown) (no (unknown) (unknown) Chief Complaint: (units (unknown) date) Neck Pain/Injury unknown) (unknown) (no (unknown) (unknown) Clinical (units (unkno wn) date) Impression: unknown) (unknown) (no (unknown) (unknown) Close (units (unkno wn) date) unknown) (unknown) (no (unknown) (unknown) Comment: Final (units (unknown) date) report is unknown) concordant with preliminary interpretation provided by (unknown) (no (unknown) (unknown) Course (units (unkno wn) date) unknown) (unknown) (no (unknown) (unknown) : 1975 (units (unknown) date) Acct:[id number] unknown) (unknown) (no (unknown) (unknown) : 1975 (units (unknown) date) unknown) (unknown) (no (unknown) (unknown) Date of Service: (units (unknown) date) 07/13/22 unknown) (unknown) (no (unknown) (unknown) Departure (units (unkn own) date) unknown) (unknown) (no (unknown) (unknown) Dictated by: (units (u nknown) date) daryl Rosario) Marcial on 07/13/2022 at 7:57 ? ? (unknown) (no (unknown) (unknown) Dictated by: (units (u nknown) date) daryl Rosario) Marcial on 07/13/2022 at 8:00 ? ? (unknown) (no (unknown) (unknown) Dictated by: (units (u nknown) date) Zaid Medel M.D. unknown) on 07/13/2022 at 7:40 ? ? (unknown) (no (unknown) (unknown) Dictated by: (units (u nknown) date) aZid Medel M.D. unknown) on 07/13/2022 at 7:42 ? ? (unknown) (no (unknown) (unknown) Discharge Plan (units (unknown) date) unknown) (unknown) (no (unknown) (unknown) Discontinued (units (u nknown) date) Medications unknown) (unknown) (no (unknown) (unknown) Documented By: KM (units (unknown) date) unknown) (unknown) (no (unknown) (unknown) ENT: Nose without (units (unknown) date) bleeding, purulent unknown) drainage. Throat without erythema, (unknown) (no (unknown) (unknown) ER Physician: (units ( unknown) date) Stephan Issa D.O. unknown) (unknown) (no (unknown) (unknown) EYES: Pupils (units (u nknown) date) equal round and unknown) reactive. No hyphema Extraocular motions intact. (unknown) (no (unknown) (unknown) Echocardiogram (units (unknown) date) Ultrasound unknown) (Signed) (unknown) (no (unknown) (unknown) Emergency Report (units (unknown) date) unknown) (unknown) (no (unknown) (unknown) Exam Narrative: (units (unknown) date) unknown) (unknown) (no (unknown) (unknown) Exam (units (unkno wn) date) unknown) (unknown) (no (unknown) (unknown) FINDINGS:? (units (unk nown) date) unknown) (unknown) (no (unknown) (unknown) Family History (units (unknown) date) (Reviewed 07/13/22 unknown) @ 06:20 by Stephan Issa DO) (unknown) (no (unknown) (unknown) Father CVA (units (unk nown) date) (cerebral vascular unknown) accident) (unknown) (no (unknown) (unknown) Functional (units (unk nown) date) paraparesis unknown) (unknown) (no (unknown) (unknown) GASTROINTESTINAL: (units (unknown) date) Abdomen soft, unknown) non-tender, nondistended. (unknown) (no (unknown) (unknown) GASTROINTESTINAL: (units (unknown) date) Denies nausea, unknown) vomiting, abdominal pain, diarrhea, (unknown) (no (unknown) (unknown) GENERAL: Denies (units (unknown) date) chills, fatigue, unknown) malaise, fever, sweats. (unknown) (no (unknown) (unknown) GENERAL: [47] (units ( unknown) date) year old patient unknown) appears stated age. Well-developed patient, in (unknown) (no (unknown) (unknown) : Denies (units (unk nown) date) dysuria, unknown) frequency, incontinence, hematuria, urinary retention. (unknown) (no (unknown) (unknown) General (units (unkno wn) date) unknown) (unknown) (no (unknown) (unknown) [place]ge (units ( unknown) date) unknown) (unknown) (no (unknown) (unknown) HEAD: Atraumatic. (units (unknown) date) Normocephalic. No unknown) contusion, abrasion or evidence of (unknown) (no (unknown) (unknown) HEENT: Denies (units ( unknown) date) sinus pain, ear unknown) pain, sore throat, difficulty swallowing, (unknown) (no (unknown) (unknown) HPI - Back (units (unk nown) date) Pain/Injury unknown) (unknown) (no (unknown) (unknown) HPI Narrative: (units (unknown) date) unknown) (unknown) (no (unknown) (unknown) Head CT (Signed) (units (unknown) date) unknown) (unknown) (no (unknown) (unknown) History of (units (unk nown) date) Present Illness unknown) (unknown) (no (unknown) (unknown) History of spinal (units (unknown) date) surgery unknown) (unknown) (no (unknown) (unknown) History of (units (unk nown) date) tonsillectomy unknown) (unknown) (no (unknown) (unknown) Home Medications (units (unknown) date) unknown) (unknown) (no (unknown) (unknown) Hypertension (units (u nknown) date) unknown) (unknown) (no (unknown) (unknown) IMPRESSION:? (units (u nknown) date) unknown) (unknown) (no (unknown) (unknown) INDICATIONS:? (units ( unknown) date) fall with head unknown) injury (unknown) (no (unknown) (unknown) INDICATIONS:? (units ( unknown) date) fall with midline unknown) back pain (unknown) (no (unknown) (unknown) INDICATIONS:? (units ( unknown) date) fall with neck unknown) pain (unknown) (no (unknown) (unknown) Ibuprofen (units (unkn own) date) (Ibuprofen 400 Mg unknown) Tablet) 800 mg PO NOW ONE (unknown) (no (unknown) (unknown) Image quality:? (units (unknown) date) Excellent.? unknown) (unknown) (no (unknown) (unknown) Image quality:? (units (unknown) date) Good.? Motion unknown) artifact at the level of C6.? (unknown) (no (unknown) (unknown) Imaging Data (units (u nknown) date) unknown) (unknown) (no (unknown) (unknown) Initial Vital (units ( unknown) date) Signs unknown) (unknown) (no (unknown) (unknown) Initial Vital (units ( unknown) date) Signs: unknown) (unknown) (no (unknown) (unknown) Instructions: DI (units (unknown) date) for Neck Pain unknown) (unknown) (no (unknown) (unknown) [facility] (units (unknown) date) [address] unknown) [place] [address] (unknown) (no (unknown) (unknown) [facility] (units (unknown) date) unknown) (unknown) (no (unknown) (unknown) Gerry Mondragon (units (unknown) date) unknown) (unknown) (no (unknown) (unknown) Knee X-Ray (units (unk nown) date) (Signed) unknown) (unknown) (no (unknown) (unknown) L Spine: (units (unkno wn) date) unknown) (unknown) (no (unknown) (unknown) L1-L2:? No canal (units (unknown) date) stenosis or unknown) foraminal stenosis. (unknown) (no (unknown) (unknown) L2-L3:? No canal (units (unknown) date) stenosis or unknown) foraminal stenosis. (unknown) (no (unknown) (unknown) L3-L4:? No canal (units (unknown) date) stenosis or unknown) foraminal stenosis. (unknown) (no (unknown) (unknown) L4-L5:? No canal (units (unknown) date) stenosis or unknown) foraminal stenosis. (unknown) (no (unknown) (unknown) L5-S1:? There is (units (unknown) date) bilateral facet unknown) hypertrophy.? No canal stenosis.? There is (unknown) (no (unknown) (unknown) Label Comments: (units (unknown) date) unknown) (unknown) (no (unknown) (unknown) Last Admin: (units (un known) date) 07/13/22 09:23 unknown) Dose: 1 each (unknown) (no (unknown) (unknown) Last Admin: (units (un known) date) 07/13/22 09:23 unknown) Dose: 800 mg (unknown) (no (unknown) (unknown) Last Infusion: (units (unknown) date) 07/13/22 09:08 unknown) Dose: 0 mls/hr (unknown) (no (unknown) (unknown) Launch?Image (units (u nknown) date) unknown) (unknown) (no (unknown) (unknown) Left (units (unkno wn) date) unknown) (unknown) (no (unknown) (unknown) Lidocaine (units (unkn own) date) (Lidocaine Patch 1 unknown) Each Adh..Patch) 1 each TOP NOW ONE (unknown) (no (unknown) (unknown) Loc: ED (units (unkno wn) date) unknown) (unknown) (no (unknown) (unknown) Lumbar Spine CT (units (unknown) date) (Signed) unknown) (unknown) (no (unknown) (unknown) MDM - Back (units (unk nown) date) Pain/Injury unknown) (unknown) (no (unknown) (unknown) MDM Narrative (units ( unknown) date) unknown) (unknown) (no (unknown) (unknown) MR#: [id number] (units (unknown) date) unknown) (unknown) (no (unknown) (unknown) MUSCULOSKELETAL: (units (unknown) date) See HPI unknown) (unknown) (no (unknown) (unknown) Medical History (units (unknown) date) (Reviewed 07/13/22 unknown) @ 06:20 by Stephan Issa DO) (unknown) (no (unknown) (unknown) Medical decision (units (unknown) date) making narrative: unknown) (unknown) (no (unknown) (unknown) Medication (units (unk nown) date) Instructions unknown) Recorded Confirmed (unknown) (no (unknown) (unknown) Medication (units (unk nown) date) Instructions unknown) Recorded (unknown) (no (unknown) (unknown) Mother Myocardial (units (unknown) date) infarct unknown) (unknown) (no (unknown) (unknown) NECK: Trachea (units ( unknown) date) midline. Midline unknown) tenderness of entire cervical and upper thoracic (unknown) (no (unknown) (unknown) NEURO: AOx3. (units (u nknown) date) unknown) (unknown) (no (unknown) (unknown) NEUROLOGIC: (units (un known) date) Denies weakness, unknown) headache, numbness, change in speech, confusion, (unknown) (no (unknown) (unknown) Narrative (units (unkn own) date) unknown) (unknown) (no (unknown) (unknown) Narrative: (units (unk nown) date) unknown) (unknown) (no (unknown) (unknown) Neurogenic pain (units (unknown) date) unknown) (unknown) (no (unknown) (unknown) No Action (units (unkn own) date) unknown) (unknown) (no (unknown) (unknown) No acute (units (unkno wn) date) intracranial unknown) abnormality. (unknown) (no (unknown) (unknown) No acute osseous (units (unknown) date) abnormality. unknown) (unknown) (no (unknown) (unknown) No scleral (units (unk nown) date) icterus. No unknown) injection or drainage. (unknown) (no (unknown) (unknown) No suspicious (units ( unknown) date) lytic or blastic unknown) bony lesions.? No pars defects.? (unknown) (no (unknown) (unknown) Noncontrast 3 mm (units (unknown) date) thick sections unknown) acquired from the T12 level to the sacrum.? (unknown) (no (unknown) (unknown) Noncontrast 3 mm (units (unknown) date) thick sections unknown) acquired from the skull base to the T4 level.? (unknown) (no (unknown) (unknown) Noncontrast 3 mm (units (unknown) date) thick sections unknown) acquired through the region of interest in the (unknown) (no (unknown) (unknown) Noncontrast 4.5 (units (unknown) date) mm thick angled unknown) axial sections acquired from the foramen magnum (unknown) (no (unknown) (unknown) Ordered: (units (unkno wn) date) unknown) (unknown) (no (unknown) (unknown) Ordering (units (unkno wn) date) Provider: unknown) Stephan Issa D.O. (unknown) (no (unknown) (unknown) Orders (units (unkno wn) date) unknown) (unknown) (no (unknown) (unknown) Oxygen Delivery (units (unknown) date) Method 07/13/22 unknown) 06:14 (unknown) (no (unknown) (unknown) Oxygen Delivery (units (unknown) date) Method Room Air unknown) (unknown) (no (unknown) (unknown) PROCEDURE:? CT (units (unknown) date) CERVICAL SPINE WO unknown) CON (unknown) (no (unknown) (unknown) PROCEDURE:? CT (units (unknown) date) HEAD/BRAIN WO CON unknown) (unknown) (no (unknown) (unknown) PROCEDURE:? CT (units (unknown) date) LUMBAR SPINE WO unknown) CON (unknown) (no (unknown) (unknown) PROCEDURE:? CT (units (unknown) date) THORACIC SPINE WO unknown) CON (unknown) (no (unknown) (unknown) PSYCHIATRIC: No (units (unknown) date) concerning unknown) psychosocial issues. (unknown) (no (unknown) (unknown) Patient (units (unkno wn) date) Disposition: Home unknown) (unknown) (no (unknown) (unknown) Patient History (units (unknown) date) unknown) (unknown) (no (unknown) (unknown) Patient with (units (u nknown) date) reassuring history unknown) physical exam returns for evaluation by EMS. He (unknown) (no (unknown) (unknown) Patient: Eleazar (units ( unknown) date) Shantanu Jonesisaiah [place] MR#: unknown) M00 (unknown) (no (unknown) (unknown) Patient: Bush (units ( unknown) date) Yann Jones unknown) (unknown) (no (unknown) (unknown) Hossein Almanzar (units (un known) date) unknown) (unknown) (no (unknown) (unknown) Prescriptions: (units (unknown) date) unknown) (unknown) (no (unknown) (unknown) Previous Rx's (units ( unknown) date) unknown) (unknown) (no (unknown) (unknown) Procedure: CT (units ( unknown) date) cervical spine wo unknown) con (unknown) (no (unknown) (unknown) Procedure: CT (units ( unknown) date) head/brain wo con unknown) (unknown) (no (unknown) (unknown) Procedure: CT (units ( unknown) date) lumbar spine wo unknown) con (unknown) (no (unknown) (unknown) Procedure: CT (units ( unknown) date) thoracic spine wo unknown) con (unknown) (no (unknown) (unknown) Pulse Oximetry 99 (units (unknown) date) 07/13/22 06:14 unknown) (unknown) (no (unknown) (unknown) Pulse Oximetry 99 (units (unknown) date) unknown) (unknown) (no (unknown) (unknown) Pulse Rate 76 (units ( unknown) date) 07/13/22 06:14 unknown) (unknown) (no (unknown) (unknown) Pulse Rate 76 (units ( unknown) date) unknown) (unknown) (no (unknown) (unknown) RESPIRATORY: Clear (units (unknown) date) to auscultation. unknown) Breath sounds equal bilaterally. No wheezes, (unknown) (no (unknown) (unknown) RESPIRATORY: (units (u nknown) date) Denies dyspnea, unknown) cough, wheezing, hemoptysis, sputum. (unknown) (no (unknown) (unknown) Radiologist's (units ( unknown) date) Impression: unknown) (unknown) (no (unknown) (unknown) Radiology (units (unkn own) date) Services. unknown) (unknown) (no (unknown) (unknown) Radiology (units (unkn own) date) Services.? unknown) (unknown) (no (unknown) (unknown) Real (units (unkno wn) date) unknown) (unknown) (no (unknown) (unknown) Referrals: (units (unk nown) date) unknown) (unknown) (no (unknown) (unknown) Related Data (units (u nknown) date) unknown) (unknown) (no (unknown) (unknown) Resource line at (units (unknown) date) [phone]. They unknown) will ask some questions about your medical (unknown) (no (unknown) (unknown) Respiratory Rate (units (unknown) date) 20 07/13/22 06:14 unknown) (unknown) (no (unknown) (unknown) Respiratory Rate (units (unknown) date) 20 unknown) (unknown) (no (unknown) (unknown) Review of Systems (units (unknown) date) unknown) (unknown) (no (unknown) (unknown) Rx Instructions: (units (unknown) date) unknown) (unknown) (no (unknown) (unknown) SKIN: Denies (units (u nknown) date) rash, skin unknown) lesions, or other (unknown) (no (unknown) (unknown) SKIN: No rash or (units (unknown) date) erythema of unknown) visible areas (unknown) (no (unknown) (unknown) Sagittal and (units (u nknown) date) unknown) (unknown) (no (unknown) (unknown) Sagittal (units (unkno wn) date) unknown) (unknown) (no (unknown) (unknown) 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 Trace (units (unknown) date) mucosal thickening unknown) in the maxillary sinuses and sphenoid (unknown) (no (unknown) (unknown) Skull and face:? (units (unknown) date) Calvarium and unknown) visualized facial bones are intact, without (unknown) (no (unknown) (unknown) Smoking Status: (units (unknown) date) Current some day unknown) smoker (unknown) (no (unknown) (unknown) Social History (units (unknown) date) (Reviewed 07/13/22 unknown) @ 06:20 by Stephan Issa DO) (unknown) (no (unknown) (unknown) Soft tissues:? No (units (unknown) date) paravertebral unknown) masses or hematomas.? Visualized posteromedial (unknown) (no (unknown) (unknown) Soft tissues:? No (units (unknown) date) retroperitoneal unknown) masses or hematomas.? Visualized aorta is (unknown) (no (unknown) (unknown) Soft tissues:? (units (unknown) date) Prevertebral soft unknown) tissues are normal in thickness.? No (unknown) (no (unknown) (unknown) Stated Complaint: (units (unknown) date) neck and back pain unknown) (unknown) (no (unknown) (unknown) Nitesh Rahman (units (unknown) date) unknown) (unknown) (no (unknown) (unknown) Stop: 07/13/22 (units (unknown) date) 08:44 unknown) (unknown) (no (unknown) (unknown) Stop: 07/13/22 (units (unknown) date) 09:19 unknown) (unknown) (no (unknown) (unknown) Strain of neck (units (unknown) date) muscle, Strain of unknown) thoracic region (unknown) (no (unknown) (unknown) Substance Use (units ( unknown) date) Type: marijuana unknown) (unknown) (no (unknown) (unknown) Surgical History (units (unknown) date) (Reviewed 07/13/22 unknown) @ 06:20 by Stephan Issa DO) (unknown) (no (unknown) (unknown) T spine: (units (unkno wn) date) unknown) (unknown) (no (unknown) (unknown) T12-L1:? No canal (units (unknown) date) stenosis or unknown) foraminal stenosis. (unknown) (no (unknown) (unknown) T9.? No (units (unkno wn) date) unknown) (unknown) (no (unknown) (unknown) TECHNIQUE:? (units (un known) date) unknown) (unknown) (no (unknown) (unknown) Take 1 capsule by (units (unknown) date) mouth twice a day unknown) for chronic back pain (unknown) (no (unknown) (unknown) Take 1 tablet by (units (unknown) date) mouth twice a day unknown) (unknown) (no (unknown) (unknown) Telemetry Strips (units (unknown) date) unknown) (unknown) (no (unknown) (unknown) Temperature 97.7 (units (unknown) date) F 07/13/22 06:14 unknown) (unknown) (no (unknown) (unknown) Temperature 97.7 (units (unknown) date) F unknown) (unknown) (no (unknown) (unknown) This report is (units (unknown) date) concordant with unknown) the overnight preliminary interpretation. (unknown) (no (unknown) (unknown) Thoracic Spine CT (units (unknown) date) (Signed) unknown) (unknown) (no (unknown) (unknown) Thoracic Spine (units (unknown) date) MRI (Signed) unknown) (unknown) (no (unknown) (unknown) Tibia/Fibula (units (u nknown) date) X-Ray (Signed) unknown) (unknown) (no (unknown) (unknown) Time Seen by (units (u nknown) date) Provider: 07/13/22 unknown) 06:07 (unknown) (no (unknown) (unknown) Ventricles (units (unk nown) date) unknown) (unknown) (no (unknown) (unknown) Visit Report (units (u nknown) date) Forms: Patient unknown) Portal/API (unknown) (no (unknown) (unknown) Vital Signs - 8 (units (unknown) date) hr unknown) (unknown) (no (unknown) (unknown) Vital Signs (units (un known) date) unknown) (unknown) (no (unknown) (unknown) Vital signs: (units (u nknown) date) unknown) (unknown) (no (unknown) (unknown) Danika García, (units (unknown) date) KIANNA [Primary Care unknown) Provider] (unknown) (no (unknown) (unknown) Reggie Enamorado (units (unkno wn) date) unknown) (unknown) (no (unknown) (unknown) [ ] New (units (unkno wn) date) medication unknown) prescriptions sent to your pharmacy: [ ] (unknown) (no (unknown) (unknown) [ ] New (units (unkno wn) date) medication written unknown) as a paper prescription (unknown) (no (unknown) (unknown) [ ] No new (units (unk nown) date) medications given unknown) (unknown) (no (unknown) (unknown) acute vertebral (units (unknown) date) body compression unknown) fractures.? No suspicious sclerotic or lytic (unknown) (no (unknown) (unknown) alcohol intake (units (unknown) date) frequency: unknown) holidays/special occasions only (unknown) (no (unknown) (unknown) alcohol intake: (units (unknown) date) current unknown) (unknown) (no (unknown) (unknown) and back pain (units ( unknown) date) after falling out unknown) of bed and laying on the floor. He states he (unknown) (no (unknown) (unknown) and coronal (units (un known) date) reformats were unknown) then constructed.? For radiation dose reduction, the (unknown) (no (unknown) (unknown) appear clear.? (units ( unknown) date) There is unknown) interstitial change in the periphery of the right lung.? (unknown) (no (unknown) (unknown) appointment. Let (units (unknown) date) them know you were unknown) seen in the Emergency Department and that we (unknown) (no (unknown) (unknown) are normal in (units ( unknown) date) size and shape.? unknown) (unknown) (no (unknown) (unknown) ask that you be (units (unknown) date) seen in follow up. unknown) We will electronically transmit a record of (unknown) (no (unknown) (unknown) bilateral (units (unkn own) date) foraminal unknown) narrowing. (unknown) (no (unknown) (unknown) bony (units (unkno wn) date) unknown) (unknown) (no (unknown) (unknown) caliber.? (units (unkn own) date) Bilateral ureteral unknown) stents are noted to be in place.? There is mild (unknown) (no (unknown) (unknown) concerning (units (unk nown) date) symptoms, such as unknown) [fever greater than 101 F, shaking chills, (unknown) (no (unknown) (unknown) constipation, (units ( unknown) date) melena. unknown) (unknown) (no (unknown) (unknown) coronal reformats (units (unknown) date) were constructed.? unknown) For radiation dose reduction, the following (unknown) (no (unknown) (unknown) cyst. (units (unkno wn) date) unknown) (unknown) (no (unknown) (unknown) depressed skull (units (unknown) date) fracture unknown) (unknown) (no (unknown) (unknown) discussed and (units ( unknown) date) questions answered unknown) to his apparent satisfaction (unknown) (no (unknown) (unknown) dizziness. (units (unk nown) date) unknown) (unknown) (no (unknown) (unknown) dose (units (unkno wn) date) unknown) (unknown) (no (unknown) (unknown) evidence of (units (un known) date) intracranial unknown) hemorrhage or fracture. There is no indication to (unknown) (no (unknown) (unknown) following (units (unkn own) date) unknown) (unknown) (no (unknown) (unknown) fractures.? (units (un known) date) unknown) (unknown) (no (unknown) (unknown) gabapentin (units (unk nown) date) AdvReac Shakiness unknown) Verified 10/16/21 09:17 (unknown) (no (unknown) (unknown) had report of any (units (unknown) date) up on the ground unknown) next to his bed without a clear explanation (unknown) (no (unknown) (unknown) has increased (units ( unknown) date) pain with motion unknown) and improvement with rest. He denies any new (unknown) (no (unknown) (unknown) hematomas.? No (units ( unknown) date) apical unknown) pneumothoraces.? Ground-glass opacity in the upper lobes.? (unknown) (no (unknown) (unknown) history and help (units (unknown) date) get you set up unknown) with a doctor in the community. (unknown) (no (unknown) (unknown) household (units (unkn own) date) members: spouse, unknown) children, friend(s) and other (unknown) (no (unknown) (unknown) injury] (units (unkno wn) date) unknown) (unknown) (no (unknown) (unknown) interface is (units (u nknown) date) normal.? unknown) (unknown) (no (unknown) (unknown) leave on most (units ( unknown) date) painful area for unknown) 12 hrs (unknown) (no (unknown) (unknown) lesions.? Central (units (unknown) date) spinal canal is of unknown) normal overall caliber.? (unknown) (no (unknown) (unknown) lesions.? (units (unkn own) date) unknown) (unknown) (no (unknown) (unknown) lidocaine 5 % (units ( unknown) date) topical patch 1 unknown) patch topical DAILY #15 ea 07/11/22 (unknown) (no (unknown) (unknown) lidocaine (units (unkn own) date) [Lidoderm] 5 % unknown) adhesive patch,medicated (unknown) (no (unknown) (unknown) loading (units (unkno wn) date) unknown) (unknown) (no (unknown) (unknown) lung is grossly (units (unknown) date) clear.? Based on unknown) the patient's positioning, the findings in the (unknown) (no (unknown) (unknown) lung may represent (units (unknown) date) dependent change.? unknown) Or, findings may represent unilateral very (unknown) (no (unknown) (unknown) lungs (units (unkno wn) date) unknown) (unknown) (no (unknown) (unknown) matter (units (unkno wn) date) unknown) (unknown) (no (unknown) (unknown) metoprolol (units (unk nown) date) tartrate 50 mg unknown) tablet 50 mg PO BID 10/15/21 10/15/21 (unknown) (no (unknown) (unknown) metoprolol (units (unk nown) date) tartrate 50 mg unknown) tablet (unknown) (no (unknown) (unknown) midline neck and (units (unknown) date) back pain after an unknown) apparent fall. He does not know exactly (unknown) (no (unknown) (unknown) mild distress. (units (unknown) date) GCS 15 unknown) (unknown) (no (unknown) (unknown) mild (units (unkno wn) date) unknown) (unknown) (no (unknown) (unknown) moderate (units (unkno wn) date) unknown) (unknown) (no (unknown) (unknown) morphine Allergy (units (unknown) date) Nightmare Verified unknown) 10/16/21 09:17 (unknown) (no (unknown) (unknown) normal in (units (unkn own) date) unknown) (unknown) (no (unknown) (unknown) numbness or (units (un known) date) tingling but is a unknown) known paraplegic. He denies any blurred vision, (unknown) (no (unknown) (unknown) of the renal (units (u nknown) date) collecting systems unknown) bilaterally.? (unknown) (no (unknown) (unknown) paranasal sinus (units (unknown) date) is are clear.? The unknown) mastoids are clear. (unknown) (no (unknown) (unknown) paravertebral (units ( unknown) date) unknown) (unknown) (no (unknown) (unknown) patient (units (unkno wn) date) unknown) (unknown) (no (unknown) (unknown) perform lab work (units (unknown) date) or obtain other unknown) imaging at this time. Return precautions (unknown) (no (unknown) (unknown) pregabalin 300 mg (units (unknown) date) capsule (Lyrica) unknown) 300 mg PO BID 10/15/21 10/15/21 (unknown) (no (unknown) (unknown) pregabalin (units (unk nown) date) [Lyrica] 300 mg unknown) capsule (unknown) (no (unknown) (unknown) prominence (units (unk nown) date) unknown) (unknown) (no (unknown) (unknown) pulmonary edema.? (units (unknown) date) Small cystic unknown) nodule, posterior to T10 likely represents a (unknown) (no (unknown) (unknown) rales, or (units (unkn own) date) rhonchi. unknown) (unknown) (no (unknown) (unknown) reduction, the (units (unknown) date) following was unknown) used:? automated exposure control.? (unknown) (no (unknown) (unknown) right (units (unkno wn) date) unknown) (unknown) (no (unknown) (unknown) sebaceous (units (unkn own) date) unknown) (unknown) (no (unknown) (unknown) seizures, (units (unkn own) date) incoordination. unknown) (unknown) (no (unknown) (unknown) sharp and (units (unkn own) date) stabbing left rib unknown) pain that has been present for quite some time. EMS (unknown) (no (unknown) (unknown) sinuses.? Other (units (unknown) date) unknown) (unknown) (no (unknown) (unknown) size.? (units (unkno wn) date) unknown) (unknown) (no (unknown) (unknown) spine, no (units (unkn own) date) step-offs, unknown) crepitance or ecchymosis noted, no change with axial (unknown) (no (unknown) (unknown) spine.? Sagittal (units (unknown) date) and coronal unknown) reformats were then constructed.? For radiation (unknown) (no (unknown) (unknown) states that he (units (unknown) date) was transported to unknown) another emergency department multiple times (unknown) (no (unknown) (unknown) suspicious (units (unk nown) date) unknown) (unknown) (no (unknown) (unknown) thoracic (units (unkno wn) date) unknown) (unknown) (no (unknown) (unknown) to the (units (unkno wn) date) unknown) (unknown) (no (unknown) (unknown) today's note if (units (unknown) date) your PCP is in our unknown) system (unknown) (no (unknown) (unknown) tonsillar (units (unkn own) date) hypertrophy or unknown) exudate. Airway patent. (unknown) (no (unknown) (unknown) trouble with (units (u nknown) date) speech or unknown) vomiting. He is had no fever or chills. He does have a (unknown) (no (unknown) (unknown) used:? automated (units (unknown) date) exposure control.? unknown) (unknown) (no (unknown) (unknown) vertex, with (units (u nknown) date) coronal and unknown) sagittal reformats.? For radiation dose reduction, the (unknown) (no (unknown) (unknown) was used:? (units (unk nown) date) automated exposure unknown) control, adjustment of mA and/or kV according to (unknown) (no (unknown) (unknown) was (units (unkno wn) date) unknown) (unknown) (no (unknown) (unknown) what happened but (units (unknown) date) EMS was activated unknown) to evaluate him with complaint of head neck (unknown) (no (unknown) (unknown) why. His exam is (units (unknown) date) very reassuring unknown) and extensive imaging noted above shows no (unknown) (no (unknown) (unknown) with (units (unkno wn) date) this?presents by unknown) EMS for evaluation of a sharp left anterior chest pain, (unknown) (no (unknown) (unknown) worsening pain, (units (unknown) date) persistent unknown) vomiting or other bothersome symptoms] (unknown) (no (unknown) (unknown) yesterday (units (unkn own) date) unknown) Result panel 1073 (unknown) (no date) (unknown) (unknown) 0 /ul (unkn own) (unknown) (no date) (unknown) (unknown) 0.6 % (unkn own) (unknown) (no date) (unknown) (unknown) 10.3 % (unkn own) (unknown) (no date) (unknown) (unknown) 11.0 % (unkn own) (unknown) (no date) (unknown) (unknown) 12.0 g/dl (unkn own) (unknown) (no date) (unknown) (unknown) 16.7 % (unkn own) (unknown) (no date) (unknown) (unknown) 27.1 pg (unkn own) (unknown) (no date) (unknown) (unknown) 33.1 % (unkn own) (unknown) (no date) (unknown) (unknown) 36.3 % (unkn own) (unknown) (no date) (unknown) (unknown) 4.45 x10 6/ul (unkn own) (unknown) (no date) (unknown) (unknown) 4.5 % (unkn own) (unknown) (no date) (unknown) (unknown) 400 /ul (unkn own) (unknown) (no date) (unknown) (unknown) 401 x10 3/ul (unkn own) (unknown) (no date) (unknown) (unknown) 6100 /ul (unkn own) (unknown) (no date) (unknown) (unknown) 73.6 % (unkn own) (unknown) (no date) (unknown) (unknown) 8.3 x10 3/ul (unkn own) (unknown) (no date) (unknown) (unknown) 81.7 fl (unkn own) (unknown) (no date) (unknown) (unknown) 900 /ul (unkn own) (unknown) (no date) (unknown) (unknown) 900 /ul (unkn own) Result panel 1074 (unknown) (no date) (unknown) (unknown) > 60 ml/min (unkn own) (unknown) (no date) (unknown) (unknown) > 60 ml/min (unkn own) (unknown) (no date) (unknown) (unknown) 0.3 mg/dl (unkn own) (unknown) (no date) (unknown) (unknown) 0.91 mg/dl (unkn own) (unknown) (no date) (unknown) (unknown) 1.1 (units unknown) (unknown) (unknown) (no date) (unknown) (unknown) 100 mmol/l (unkn own) (unknown) (no date) (unknown) (unknown) 13 iu/l (unkn own) (unknown) (no date) (unknown) (unknown) 139 mmol/l (unkn own) (unknown) (no date) (unknown) (unknown) 15 iu/l (unkn own) (unknown) (no date) (unknown) (unknown) 16 mg/dl (unkn own) (unknown) (no date) (unknown) (unknown) 17.6 (units unknown) (unknown) (unknown) (no date) (unknown) (unknown) 29 mmol/l (unkn own) (unknown) (no date) (unknown) (unknown) 3.2 g/dl (unkn own) (unknown) (no date) (unknown) (unknown) 3.5 g/dl (unkn own) (unknown) (no date) (unknown) (unknown) 4.4 mmol/l (unkn own) (unknown) (no date) (unknown) (unknown) 47 u/l (unkn own) (unknown) (no date) (unknown) (unknown) 6.7 g/dl (unkn own) (unknown) (no date) (unknown) (unknown) 8.5 mg/dl (unkn own) (unknown) (no date) (unknown) (unknown) 84 u/l (unkn own) (unknown) (no date) (unknown) (unknown) 94 mg/dl (unkn own) (unknown) (no date) (unknown) (unknown) 94 mg/dl (unkn own) Result panel 1075 (unknown) (no (unknown) (unknown) (no value) (units (unk nown) date) unknown) (unknown) (no (unknown) (unknown) [id number] (units (unkno wn) date) unknown) (unknown) (no (unknown) (unknown) 1. Persistent mild (units (unknown) date) bilateral unknown) hydroureteronephrosis with bilateral ureteral (unknown) (no (unknown) (unknown) 07/03/2020, 22:25. (units (unknown) date) unknown) (unknown) (no (unknown) (unknown) 07/23/22 (units (unkno wn) date) unknown) (unknown) (no (unknown) (unknown) [address] [place] [address] (units (unknown) date) unknown) (unknown) (no (unknown) (unknown) 2. New high density (unit s (unknown) date) filling defects within unknown ) right renal calices and pelvis (unknown) (no (unknown) (unknown) 3. Persistent (units ( unknown) date) bilateral urothelial unknown) thickening in the ureters with periureteral (unknown) (no (unknown) (unknown) 4. Heterogeneous (units (unknown) date) enhancement of the unknown) kidneys redemonstrated, decreased from the (unknown) (no (unknown) (unknown) 5. Concentric bladder (un its (unknown) date) wall thickening with unknown) associated fat stranding consistent (unknown) (no (unknown) (unknown) 6. Enlargement of the (un its (unknown) date) pancreatic head unknown) redemonstrated without a discrete mass or (unknown) (no (unknown) (unknown) ABDOMEN PELVIS WITH (unit s (unknown) date) CONTRAST, 06/26/2022, unknown) 16:13. (unknown) (no (unknown) (unknown) ABDOMEN: (units (unkno wn) date) unknown) (unknown) (no (unknown) (unknown) Abdominal Nodes: No (unit s (unknown) date) retroperitoneal or unknown) mesenteric adenopathy by size criteria. (unknown) (no (unknown) (unknown) Accession Number: (units (unknown) date) [id number] unknown) (unknown) (no (unknown) (unknown) Adrenal Glands: No (units (unknown) date) adrenal nodules. unknown) (unknown) (no (unknown) (unknown) After the (units (unkn own) date) administration of IV unknown) contrast, axial sections were acquired from the (unknown) (no (unknown) (unknown) Age/Sex: 47 / M Date (uni ts (unknown) date) of Service: unknown) (unknown) (no (unknown) ([place]) [place] [id number] (unit s (unknown) date) unknown) (unknown) (no (unknown) (unknown) Approved by: Hossein Valladares (u nits (unknown) date) Marcial Almanzar on unknown) 07/24/2022 at 1:18 (unknown) (no (unknown) (unknown) Biliary ducts: No (units (unknown) date) biliary ductal unknown) dilatation. (unknown) (no (unknown) (unknown) Bladder: The urinary (uni ts (unknown) date) bladder is nondistended unknow n) with a Bowling catheter present. (unknown) (no (unknown) (unknown) Bones: Visualized (units (unknown) date) osseous structures unknown) demonstrate no suspicious focal lesions. (unknown) (no (unknown) (unknown) COMPARISON: [facility] (units (unknown) date) Outside Film, CT, CT unknown) ABDOMEN PELVIS WITHOUT CONTRAST, (unknown) (no (unknown) (unknown) CT Scan Report (units (unknown) date) unknown) (unknown) (no (unknown) (unknown) : 1975 (units (unknown) date) Acct:[id number] unknown) (unknown) (no (unknown) (unknown) Dictated by: Hossein Valladares (u nits (unknown) date) Marcial Almanzar on unknown) 07/24/2022 at 0:56 (unknown) (no (unknown) (unknown) FINDINGS: (units (unkn own) date) unknown) (unknown) (no (unknown) (unknown) Gallbladder: Within (unit s (unknown) date) normal limits without unknown) calcified gallstones. (unknown) (no (unknown) (unknown) Heart: Heart is normal (u nits (unknown) date) in size. unknown) (unknown) (no (unknown) (unknown) Hospital, CT, CT (units (unknown) date) unknown) (unknown) (no (unknown) (unknown) IMPRESSION: (units (un known) date) unknown) (unknown) (no (unknown) (unknown) INDICATIONS: severe (unit s (unknown) date) LLQ pain unknown) (unknown) (no (unknown) (unknown) Image quality: (units (unknown) date) Excellent. unknown) (unknown) (no (unknown) (unknown) [facility] (units (unknown) date) unknown) (unknown) (no (unknown) (unknown) Kidneys and Ureters: (uni ts (unknown) date) Bilateral ureteral unknown) stents are redemonstrated with the (unknown) (no (unknown) (unknown) Liver: No mass lesion. (u nits (unknown) date) unknown) (unknown) (no (unknown) (unknown) Loc: ED (units (unkno wn) date) unknown) (unknown) (no (unknown) (unknown) Lung bases: There is (uni ts (unknown) date) mild dependent unknown) atelectasis. (unknown) (no (unknown) (unknown) Miscellaneous: No (units (unknown) date) inguinal hernias are unknown) seen. (unknown) (no (unknown) (unknown) Ordering Provider: (units (unknown) date) Stephan Issa D.O. unknown) (unknown) (no (unknown) (unknown) PELVIS: (units (unkno wn) date) unknown) (unknown) (no (unknown) (unknown) PROCEDURE: CT ABDOMEN (un its (unknown) date) PELVIS W CON unknown) (unknown) (no (unknown) (unknown) Pancreas: There is (units (unknown) date) enlargement of the unknown) pancreatic head redemonstrated without a (unknown) (no (unknown) (unknown) Patient: Yann Bush Sr (u nits (unknown) date) W MR#: [id number] unknown) (unknown) (no (unknown) (unknown) Pelvic Nodes: No (units (unknown) date) enlarged lymph nodes. unknown) (unknown) (no (unknown) (unknown) Pelvic Organs: (units (unknown) date) Unremarkable. unknown) (unknown) (no (unknown) (unknown) Peritoneum: No (units (unknown) date) abnormal unknown) intraperitoneal fluid. No free air. (unknown) (no (unknown) (unknown) Procedure: CT abdomen (un its (unknown) date) pelvis w con unknown) (unknown) (no (unknown) (unknown) Signed (units (unkno wn) date) unknown) (unknown) (no (unknown) (unknown) [facility] (units ( unknown) date) [facility], CT, CT unknown) ABDOMEN PELVIS WITH CONTRAST, 01/11/2021, 13:06. (unknown) (no (unknown) (unknown) [place] (units (unkno wn) date) unknown) (unknown) (no (unknown) (unknown) Spleen: Normal in (units (unknown) date) size. unknown) (unknown) (no (unknown) (unknown) Stomach and Bowel: (units (unknown) date) Stomach, small bowel unknown) loops, and colon are normal in caliber (unknown) (no (unknown) (unknown) TECHNIQUE: (units (unk nown) date) unknown) (unknown) (no (unknown) (unknown) There is (units (unkno wn) date) unknown) (unknown) (no (unknown) (unknown) [facility], MR, (uni ts (unknown) date) MR ABDOMEN MRCP, unknown) 06/27/2022, 10:39. [facility] (unknown) (no (unknown) (unknown) Ventral Wall: No (units (unknown) date) hernia. unknown) (unknown) (no (unknown) (unknown) Vessels: Aorta and (units (unknown) date) inferior vena cava are unknown ) normal in size. (unknown) (no (unknown) (unknown) and wall (units (unkno wn) date) unknown) (unknown) (no (unknown) (unknown) and/or kV according to (u nits (unknown) date) patient size. unknown) (unknown) (no (unknown) (unknown) bilateral (units (unkn own) date) hydroureteronephrosis unknown) with periureteral fat stranding and urothelial (unknown) (no (unknown) (unknown) blood product and (units (unknown) date) indicative of interval unknown ) hemorrhage. (unknown) (no (unknown) (unknown) coils in the renal (units (unknown) date) pelves and the distal unknown) coils in the bladder. There is (unknown) (no (unknown) (unknown) concentric bladder (units (unknown) date) wall thickening with unknown) associated fat stranding. (unknown) (no (unknown) (unknown) consistent with (units (unknown) date) unknown) (unknown) (no (unknown) (unknown) cystitis. (units (unkn own) date) unknown) (unknown) (no (unknown) (unknown) discrete (units (unkno wn) date) unknown) (unknown) (no (unknown) (unknown) dose reduction, the (unit s (unknown) date) following was used: unknown) automated exposure control, adjustment (unknown) (no (unknown) (unknown) fat (units (unkno wn) date) unknown) (unknown) (no (unknown) (unknown) filling defects within (u nits (unknown) date) the calices and renal unknown) pelvis compatible with blood (unknown) (no (unknown) (unknown) hyperdense (units (unk nown) date) unknown) (unknown) (no (unknown) (unknown) is persistent (units ( unknown) date) heterogeneous unknown) enhancement of the kidneys redemonstrated (unknown) (no (unknown) (unknown) lung bases (units (unk nown) date) unknown) (unknown) (no (unknown) (unknown) mass identified. No (unit s (unknown) date) definite pancreatic unknown) duct dilatation. Findings are similar (unknown) (no (unknown) (unknown) of mA (units (unkno wn) date) unknown) (unknown) (no (unknown) (unknown) pancreatic duct (units (unknown) date) dilatation. Findings unknown) appear similar to the prior studies. (unknown) (no (unknown) (unknown) persistent mild (units (unknown) date) unknown) (unknown) (no (unknown) (unknown) prior studies. (units (unknown) date) unknown) (unknown) (no (unknown) (unknown) prior (units (unkno wn) date) unknown) (unknown) (no (unknown) (unknown) product. There (units (unknown) date) unknown) (unknown) (no (unknown) (unknown) proximal (units (unkno wn) date) unknown) (unknown) (no (unknown) (unknown) pyelonephritis. (units (unknown) date) unknown) (unknown) (no (unknown) (unknown) radiation (units (unkn own) date) unknown) (unknown) (no (unknown) (unknown) redemonstrated. (units (unknown) date) unknown) (unknown) (no (unknown) (unknown) stents (units (unkno wn) date) unknown) (unknown) (no (unknown) (unknown) stranding likely (units (unknown) date) reflecting a urinary unknown) tract infection. (unknown) (no (unknown) (unknown) study, suggestive of (uni ts (unknown) date) resolving unknown) pyelonephritis. (unknown) (no (unknown) (unknown) suggestive of (units ( unknown) date) unknown) (unknown) (no (unknown) (unknown) thickening. Within the (u nits (unknown) date) right renal collecting unknown ) system, there are slightly (unknown) (no (unknown) (unknown) thickness. (units (unk nown) date) unknown) (unknown) (no (unknown) (unknown) to the pubic (units (u nknown) date) symphysis. Coronal and unknown ) sagittal reformats were performed. For (unknown) (no (unknown) (unknown) to the (units (unkno wn) date) unknown) (unknown) (no (unknown) (unknown) with a (units (unkno wn) date) unknown) Result panel 1076 (unknown) (no (unknown) (unknown) (no value) (units (unk nown) date) unknown) (unknown) (no (unknown) (unknown) (Lidoderm) (units (unk nown) date) unknown) (unknown) (no (unknown) (unknown) [id number] (units (unkno wn) date) unknown) (unknown) (no (unknown) (unknown) 1 patch TOP (units (un known) date) DAILY Qty: 15 0RF unknown) (unknown) (no (unknown) (unknown) 12 point review (units (unknown) date) of systems is unknown) negative except for those stated above (unknown) (no (unknown) (unknown) 07/23/22 (units (unkno wn) date) 07/23/22 unknown) Range/Units (unknown) (no (unknown) (unknown) 07/23/22 22:06 (units (unknown) date) unknown) (unknown) (no (unknown) (unknown) 07/23/22 22:16 (units (unknown) date) unknown) (unknown) (no (unknown) (unknown) 07/23/22 22:22 (units (unknown) date) unknown) (unknown) (no (unknown) (unknown) 07/23/22 22:55 (units (unknown) date) unknown) (unknown) (no (unknown) (unknown) 07/23/22 (units (unkno wn) date) unknown) (unknown) (no (unknown) (unknown) 22:13 (units (unkno wn) date) unknown) (unknown) (no (unknown) (unknown) 22:16 22:16 (units (un known) date) unknown) (unknown) (no (unknown) (unknown) 300 mg PO BID (units ( unknown) date) unknown) (unknown) (no (unknown) (unknown) 47-year-old male (units (unknown) date) smoker ?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 associated (unknown) (no (unknown) (unknown) 50 mg PO BID (units (u nknown) date) unknown) (unknown) (no (unknown) (unknown) ALT 15 (<50) (units (u nknown) date) IU/L unknown) (unknown) (no (unknown) (unknown) AST 13 L (17-59) (units (unknown) date) IU/L unknown) (unknown) (no (unknown) (unknown) Age/Sex: 47 / M (units (unknown) date) unknown) (unknown) (no (unknown) (unknown) Albumin 3.5 (units (un known) date) (3.5-5.0) g/dL unknown) (unknown) (no (unknown) (unknown) Albumin/Globulin (units (unknown) date) Ratio 1.1 unknown) (1.0-2.8) (unknown) (no (unknown) (unknown) Alkaline (units (unkno wn) date) Phosphatase 84 unknown) (38-126) U/L (unknown) (no (unknown) (unknown) Allergies (units (unkn own) date) unknown) (unknown) (no (unknown) (unknown) Allergy/AdvReac (units (unknown) date) Type Severity unknown) Reaction Status Date / Time (unknown) (no (unknown) (unknown) BACK: Nontender (units (unknown) date) without deformity unknown) or crepitance. No flank tenderness. (unknown) (no (unknown) (unknown) BUN 16 (9-20) (units ( unknown) date) mg/dL unknown) (unknown) (no (unknown) (unknown) BUN/Creatinine (units (unknown) date) Ratio 17.6 (6-22) unknown) (unknown) (no (unknown) (unknown) Back pain (units (unkn own) date) unknown) (unknown) (no (unknown) (unknown) Baso # (Auto) 0 (units (unknown) date) (0-100) /uL unknown) (unknown) (no (unknown) (unknown) Baso % (Auto) (units ( unknown) date) 0.6 (0-2) % unknown) (unknown) (no (unknown) (unknown) Blood Pressure (units (unknown) date) 144/96 H 07/23/22 unknown) 22:13 (unknown) (no (unknown) (unknown) Blood Pressure (units (unknown) date) 144/96 H unknown) (unknown) (no (unknown) (unknown) CARDIOVASCULAR: (units (unknown) date) Denies chest unknown) pain, palpitations, orthopnea, edema, (unknown) (no (unknown) (unknown) CARDIOVASCULAR: (units (unknown) date) Regular rate and unknown) rhythm without murmurs, gallops, or rubs. (unknown) (no (unknown) (unknown) CT abdomen (units (unk nown) date) pelvis w con Stat unknown) (unknown) (no (unknown) (unknown) Calcium 8.5 (units (un known) date) (8.4-10.2) mg/dL unknown) (unknown) (no (unknown) (unknown) Carbon Dioxide (units (unknown) date) 29 (22-32) mmol/L unknown) (unknown) (no (unknown) (unknown) Chief Complaint: (units (unknown) date) Abdominal Pain unknown) (unknown) (no (unknown) (unknown) Chloride 100 (units (u nknown) date) (98-107) mmol/L unknown) (unknown) (no (unknown) (unknown) Complete Blood (units (unknown) date) Count AUTO DIFF unknown) Stat (unknown) (no (unknown) (unknown) Comprehensive (units ( unknown) date) Metabolic Panel unknown) Stat (unknown) (no (unknown) (unknown) Course (units (unkno wn) date) unknown) (unknown) (no (unknown) (unknown) Covid-19 + FLU (units (unknown) date) A/B + RSV - PCR unknown) Stat (unknown) (no (unknown) (unknown) Creatinine 0.91 (units (unknown) date) (0.66-1.25) mg/dL unknown) (unknown) (no (unknown) (unknown) : 1975 (units (unknown) date) Acct:[id number] unknown) (unknown) (no (unknown) (unknown) Date of Service: (units (unknown) date) 07/23/22 unknown) (unknown) (no (unknown) (unknown) Departure (units (unkn own) date) unknown) (unknown) (no (unknown) (unknown) Discharge Plan (units (unknown) date) unknown) (unknown) (no (unknown) (unknown) ED Orders (units (unkn own) date) unknown) (unknown) (no (unknown) (unknown) EKG-12 Lead Stat (units (unknown) date) unknown) (unknown) (no (unknown) (unknown) ENT: Nose (units (unkn own) date) without bleeding, unknown) purulent drainage. Throat without erythema, (unknown) (no (unknown) (unknown) ER Physician: (units ( unknown) date) Stephan Issa unknown) D.O. (unknown) (no (unknown) (unknown) EXTREMITIES: No (units (unknown) date) edema or joint unknown) tenderness. (unknown) (no (unknown) (unknown) EYES: Pupils (units (u nknown) date) equal round and unknown) reactive. Extraocular motions intact. No scleral (unknown) (no (unknown) (unknown) Emergency Report (units (unknown) date) unknown) (unknown) (no (unknown) (unknown) Eos # (Auto) 400 (units (unknown) date) (0-450) /uL unknown) (unknown) (no (unknown) (unknown) Eos % (Auto) 4.5 (units (unknown) date) H (2-4) % unknown) (unknown) (no (unknown) (unknown) Estimated GFR > (units (unknown) date) 60 (>60) mL/min unknown) (unknown) (no (unknown) (unknown) Exam Narrative: (units (unknown) date) unknown) (unknown) (no (unknown) (unknown) Exam (units (unkno wn) date) unknown) (unknown) (no (unknown) (unknown) Family History (units (unknown) date) (Reviewed unknown) 07/23/22 @ 22:58 by Stephan Issa DO) (unknown) (no (unknown) (unknown) Father CVA (units (unk nown) date) (cerebral unknown) vascular accident) (unknown) (no (unknown) (unknown) Functional (units (unk nown) date) paraparesis unknown) (unknown) (no (unknown) (unknown) GASTROINTESTINAL (units (unknown) date) : Abdomen soft, unknown) tender to palpation nondistended. (unknown) (no (unknown) (unknown) GASTROINTESTINAL (units (unknown) date) : see HPI unknown) (unknown) (no (unknown) (unknown) GENERAL: Denies (units (unknown) date) chills, fatigue, unknown) malaise, fever, sweats. (unknown) (no (unknown) (unknown) GENERAL: [47] (units ( unknown) date) year old patient unknown) appears stated age. Well-developed patient, in (unknown) (no (unknown) (unknown) : Denies (units (unk nown) date) dysuria, unknown) frequency, incontinence, hematuria, urinary retention. (unknown) (no (unknown) (unknown) General (units (unkno wn) date) unknown) (unknown) (no (unknown) (unknown) Globulin 3.2 (units (u nknown) date) (1.7-4.1) g/dL unknown) (unknown) (no (unknown) (unknown) Glucose 94 (units (unk nown) date) (70-100) mg/dL unknown) (unknown) (no (unknown) (unknown) HEAD: (units (unkno wn) date) Atraumatic. unknown) Normocephalic. (unknown) (no (unknown) (unknown) HEENT: Denies (units ( unknown) date) sinus pain, ear unknown) pain, sore throat, difficulty swallowing, (unknown) (no (unknown) (unknown) HPI - Abdominal (units (unknown) date) Pain unknown) (unknown) (no (unknown) (unknown) HPI narrative: (units (unknown) date) unknown) (unknown) (no (unknown) (unknown) Hct 36.3 L (units (unk nown) date) (41-53) % unknown) (unknown) (no (unknown) (unknown) He states that (units (unknown) date) he is had no unknown) fever or chills. He has been nauseated but denies (unknown) (no (unknown) (unknown) Hgb 12.0 L (units (unk nown) date) (13.5-17.5) g/dL unknown) (unknown) (no (unknown) (unknown) History of (units (unk nown) date) Present Illness unknown) (unknown) (no (unknown) (unknown) History of (units (unk nown) date) spinal surgery unknown) (unknown) (no (unknown) (unknown) History of (units (unk nown) date) tonsillectomy unknown) (unknown) (no (unknown) (unknown) Home Medications (units (unknown) date) unknown) (unknown) (no (unknown) (unknown) Hypertension (units (u nknown) date) unknown) (unknown) (no (unknown) (unknown) Initial Vital (units ( unknown) date) Signs unknown) (unknown) (no (unknown) (unknown) Initial Vital (units ( unknown) date) Signs: unknown) (unknown) (no (unknown) (unknown) [facility] (units (unknown) date) [address] unknown) [place] [address] (unknown) (no (unknown) (unknown) Lab Data (units (unkno wn) date) unknown) (unknown) (no (unknown) (unknown) Lab Results (units (un known) date) unknown) (unknown) (no (unknown) (unknown) Label Comments: (units (unknown) date) unknown) (unknown) (no (unknown) (unknown) Labs: (units (unkno wn) date) unknown) (unknown) (no (unknown) (unknown) Lipase 47 (units (unkn own) date) (23-300) U/L unknown) (unknown) (no (unknown) (unknown) Lipase Stat (units (un known) date) unknown) (unknown) (no (unknown) (unknown) Lymph # (Auto) (units (unknown) date) 900 L (9124-1886) unknown) /uL (unknown) (no (unknown) (unknown) Lymph % (Auto) (units (unknown) date) 10.3 L (25-40) % unknown) (unknown) (no (unknown) (unknown) MCH 27.1 (26-34) (units (unknown) date) PG unknown) (unknown) (no (unknown) (unknown) MCHC 33.1 (units (unkn own) date) (30-36) % unknown) (unknown) (no (unknown) (unknown) MCV 81.7 (units (unkno wn) date) (80-100) fL unknown) (unknown) (no (unknown) (unknown) MDM - Abdominal (units (unknown) date) Pain unknown) (unknown) (no (unknown) (unknown) MUSCULOSKELETAL: (units (unknown) date) denies weakness, unknown) joint pain, or bony pain (unknown) (no (unknown) (unknown) Medical History (units (unknown) date) (Reviewed unknown) 07/23/22 @ 22:58 by Stephan Issa DO) (unknown) (no (unknown) (unknown) Medication (units (unk nown) date) Instructions unknown) Recorded Confirmed (unknown) (no (unknown) (unknown) Medication (units (unk nown) date) Instructions unknown) Recorded (unknown) (no (unknown) (unknown) Mode of arrival: (units (unknown) date) EMS unknown) (unknown) (no (unknown) (unknown) [place] # (Auto) (units ( unknown) date) 900 (0-900) /uL unknown) (unknown) (no (unknown) (unknown) [place] % (Auto) (units ( unknown) date) 11.0 (3-14) % unknown) (unknown) (no (unknown) (unknown) Mother (units (unkno wn) date) Myocardial unknown) infarct (unknown) (no (unknown) (unknown) NECK: Trachea (units ( unknown) date) midline. Non unknown) tender (unknown) (no (unknown) (unknown) NEURO: AOx3. (units (u nknown) date) unknown) (unknown) (no (unknown) (unknown) NEUROLOGIC: (units (un known) date) Denies weakness, unknown) headache, numbness, change in speech, confusion, (unknown) (no (unknown) (unknown) Narrative (units (unkn own) date) unknown) (unknown) (no (unknown) (unknown) Narrative: (units (unk nown) date) unknown) (unknown) (no (unknown) (unknown) Neurogenic pain (units (unknown) date) unknown) (unknown) (no (unknown) (unknown) Neut # (Auto) (units ( unknown) date) 6100 (3514-6300) unknown) /uL (unknown) (no (unknown) (unknown) Neut % (Auto) (units ( unknown) date) 73.6 (50-75) % unknown) (unknown) (no (unknown) (unknown) No Action (units (unkn own) date) unknown) (unknown) (no (unknown) (unknown) Ondansetron HCl (units (unknown) date) (Ondansetron 4 unknown) Mg/2 Ml Inj) 4 mg IV NOW PRN (unknown) (no (unknown) (unknown) Ordered: (units (unkno wn) date) unknown) (unknown) (no (unknown) (unknown) Orders (units (unkno wn) date) unknown) (unknown) (no (unknown) (unknown) Oxygen Delivery (units (unknown) date) Method 07/23/22 unknown) 22:13 (unknown) (no (unknown) (unknown) Oxygen Delivery (units (unknown) date) Method Room Air unknown) (unknown) (no (unknown) (unknown) PRN Reason: (units (un known) date) Nausea And unknown) Vomiting (unknown) (no (unknown) (unknown) PSYCHIATRIC: No (units (unknown) date) concerning unknown) psychosocial issues. (unknown) (no (unknown) (unknown) Patient History (units (unknown) date) unknown) (unknown) (no (unknown) (unknown) Patient: Eleazar (units ( unknown) date) Yann Jones MR#: unknown) M00 (unknown) (no (unknown) (unknown) Plt Count 401 H (units (unknown) date) (150-400) X103/uL unknown) (unknown) (no (unknown) (unknown) Potassium 4.4 (units ( unknown) date) (3.4-5.1) mmol/L unknown) (unknown) (no (unknown) (unknown) Prescriptions: (units (unknown) date) unknown) (unknown) (no (unknown) (unknown) Previous Rx's (units ( unknown) date) unknown) (unknown) (no (unknown) (unknown) Pulse Oximetry (units (unknown) date) 95 07/23/22 22:13 unknown) (unknown) (no (unknown) (unknown) Pulse Oximetry (units (unknown) date) 95 unknown) (unknown) (no (unknown) (unknown) Pulse Rate 111 H (units (unknown) date) 07/23/22 22:13 unknown) (unknown) (no (unknown) (unknown) Pulse Rate 111 H (units (unknown) date) unknown) (unknown) (no (unknown) (unknown) RBC 4.45 L (units (unk nown) date) (4.5-5.9) X106/uL unknown) (unknown) (no (unknown) (unknown) RDW 16.7 H (units (unk nown) date) (11.6-14.8) % unknown) (unknown) (no (unknown) (unknown) RESPIRATORY: (units (un known) date) Clear to unknown) auscultation. Breath sounds equal bilaterally. No wheezes, (unknown) (no (unknown) (unknown) RESPIRATORY: (units (u nknown) date) Denies dyspnea, unknown) cough, wheezing, hemoptysis, sputum. (unknown) (no (unknown) (unknown) Referrals: (units (unk nown) date) unknown) (unknown) (no (unknown) (unknown) Related Data (units (u nknown) date) unknown) (unknown) (no (unknown) (unknown) Respiratory Rate (units (unknown) date) 20 07/23/22 22:13 unknown) (unknown) (no (unknown) (unknown) Respiratory Rate (units (unknown) date) 20 unknown) (unknown) (no (unknown) (unknown) Result diagrams: (units (unknown) date) unknown) (unknown) (no (unknown) (unknown) Review of (units (unkn own) date) Systems unknown) (unknown) (no (unknown) (unknown) Rx Instructions: (units (unknown) date) unknown) (unknown) (no (unknown) (unknown) SKIN: Denies (units (u nknown) date) rash, skin unknown) lesions, or other (unknown) (no (unknown) (unknown) SKIN: No rash or (units (unknown) date) erythema of unknown) visible areas (unknown) (no (unknown) (unknown) 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 unknown) (unknown) (no (unknown) (unknown) Signed By: (units (unk nown) date) unknown) (unknown) (no (unknown) (unknown) Smoking Status: (units (unknown) date) Former smoker unknown) (unknown) (no (unknown) (unknown) Social History (units (unknown) date) (Reviewed unknown) 07/23/22 @ 22:58 by Stephan Issa DO) (unknown) (no (unknown) (unknown) Sodium 139 (units (unk nown) date) (137-145) mmol/L unknown) (unknown) (no (unknown) (unknown) Source: patient (units (unknown) date) unknown) (unknown) (no (unknown) (unknown) Stated (units (unkno wn) date) Complaint: LLQ unknown) Abd pain (unknown) (no (unknown) (unknown) Substance Use (units ( unknown) date) Type: does not unknown) use (unknown) (no (unknown) (unknown) Surgical History (units (unknown) date) (Reviewed unknown) 07/23/22 @ 22:58 by Stephan Issa DO) (unknown) (no (unknown) (unknown) Take 1 capsule (units (unknown) date) by mouth twice a unknown) day for chronic back pain (unknown) (no (unknown) (unknown) Take 1 tablet by (units (unknown) date) mouth twice a day unknown) (unknown) (no (unknown) (unknown) Temperature 98.4 (units (unknown) date) F 07/23/22 22:13 unknown) (unknown) (no (unknown) (unknown) Temperature 98.4 (units (unknown) date) F unknown) (unknown) (no (unknown) (unknown) Time Seen by (units (u nknown) date) Provider: unknown) 07/23/22 22:07 (unknown) (no (unknown) (unknown) Total Bilirubin (units (unknown) date) 0.3 (0.2-1.3) unknown) mg/dL (unknown) (no (unknown) (unknown) Total Protein (units ( unknown) date) 6.7 (6.3-8.2) unknown) g/dL (unknown) (no (unknown) (unknown) Urinalysis and (units (unknown) date) Microscopic Stat unknown) (unknown) (no (unknown) (unknown) Vital Signs - 8 (units (unknown) date) hr unknown) (unknown) (no (unknown) (unknown) Vital Signs (units (un known) date) unknown) (unknown) (no (unknown) (unknown) Vital signs: (units (u nknown) date) unknown) (unknown) (no (unknown) (unknown) WBC 8.3 (units (unkno wn) date) (4.5-11.0) unknown) X103/uL (unknown) (no (unknown) (unknown) Danika García, (units (unknown) date) PA-C [Primary unknown) Care Provider] (unknown) (no (unknown) (unknown) [Embedded Image (units (unknown) date) Not Available] unknown) (unknown) (no (unknown) (unknown) alcohol intake (units (unknown) date) frequency: unknown) holidays/special occasions only (unknown) (no (unknown) (unknown) alcohol intake: (units (unknown) date) current unknown) (unknown) (no (unknown) (unknown) any significant (units (unknown) date) vomiting. He unknown) denies any changes bowel habits such as (unknown) (no (unknown) (unknown) constipation or (units (unknown) date) diarrhea. He does unknown) not think he is had any change in his urinary (unknown) (no (unknown) (unknown) dizziness. (units (unk nown) date) unknown) (unknown) (no (unknown) (unknown) gabapentin (units (unk nown) date) AdvReac [place]akiness unknown) Verified 10/16/21 09:17 (unknown) (no (unknown) (unknown) habits. His pain (units (unknown) date) is in his lower unknown) anterior abdomen and is worse when he moves or (unknown) (no (unknown) (unknown) household (units (unkn own) date) members: spouse, unknown) children, friend(s) and other (unknown) (no (unknown) (unknown) icterus. No (units (un known) date) injection or unknown) drainage. (unknown) (no (unknown) (unknown) leave on most (units ( unknown) date) painful area for unknown) 12 hrs (unknown) (no (unknown) (unknown) lidocaine 5 % (units ( unknown) date) topical patch 1 unknown) patch topical DAILY #15 ea 07/11/22 (unknown) (no (unknown) (unknown) lidocaine (units (unkn own) date) [Lidoderm] 5 % unknown) adhesive patch,medicated (unknown) (no (unknown) (unknown) metoprolol (units (unk nown) date) tartrate 50 mg unknown) tablet 50 mg PO BID 10/15/21 10/15/21 (unknown) (no (unknown) (unknown) metoprolol (units (unk nown) date) tartrate 50 mg unknown) tablet (unknown) (no (unknown) (unknown) mild distress. (units (unknown) date) Obviously unknown) uncomfortable, holding an emesis bag (unknown) (no (unknown) (unknown) morphine Allergy (units (unknown) date) Nightmare unknown) Verified 10/16/21 09:17 (unknown) (no (unknown) (unknown) pregabalin 300 (units (unknown) date) mg capsule unknown) (Lyrica) 300 mg PO BID 10/15/21 10/15/21 (unknown) (no (unknown) (unknown) pregabalin (units (unk nown) date) [Lyrica] 300 mg unknown) capsule (unknown) (no (unknown) (unknown) rales, or (units (unkn own) date) rhonchi. unknown) (unknown) (no (unknown) (unknown) seizures, (units (unkn own) date) incoordination. unknown) (unknown) (no (unknown) (unknown) tonsillar (units (unkn own) date) hypertrophy or unknown) exudate. Airway patent. (unknown) (no (unknown) (unknown) with palpation (units (unknown) date) and improves with unknown) rest. (unknown) (no (unknown) (unknown) with (units (unkno wn) date) this?presents by unknown) EMS for evaluation about 1 week of lower abdominal pain. Result panel 1077 (unknown) (no date) (unknown) (unknown) Flu A (units (unkn own) NEGATIVE unknown) (unknown) (no date) (unknown) (unknown) Flu B (units (unkn own) NEGATIVE unknown) (unknown) (no date) (unknown) (unknown) Negative (units (unkn own) unknown) (unknown) (no date) (unknown) (unknown) POSITIVE (units (unkn own) unknown) (unknown) (no date) (unknown) (unknown) POSITIVE (units (unkn own) unknown) Result panel 1078 (unknown) (no date) (unknown) (unknown) 0.2 e.u./dl (unkn own) (unknown) (no date) (unknown) (unknown) 1 (units (unkn own) unknown) (unknown) (no date) (unknown) (unknown) 1.010 (units (unkn own) unknown) (unknown) (no date) (unknown) (unknown) 2 (units (unkn own) unknown) (unknown) (no date) (unknown) (unknown) 3 (units (unkn own) unknown) (unknown) (no date) (unknown) (unknown) 7.0 (units (unkn own) unknown) (unknown) (no date) (unknown) (unknown) CLOUDY (units (unkn own) unknown) (unknown) (no date) (unknown) (unknown) NEGATIVE (units (unkn own) unknown) (unknown) (no date) (unknown) (unknown) POSITIVE (units (unkn own) unknown) (unknown) (no date) (unknown) (unknown) TRACE g/dl (unkn own) (unknown) (no date) (unknown) (unknown) YELLOW (units (unkn own) unknown) (unknown) (no date) (unknown) (unknown) YELLOW (units (unkn own) unknown) Result panel 1079 (unknown) (no (unknown) (unknown) (no value) (units (unk nown) date) unknown) (unknown) (no (unknown) (unknown) (Lidoderm) (units (unk nown) date) unknown) (unknown) (no (unknown) (unknown) 00:00 (units (unkno wn) date) unknown) (unknown) (no (unknown) (unknown) [id number] (units (unkno wn) date) unknown) (unknown) (no (unknown) (unknown) 1 patch TOP (units (un known) date) DAILY Qty: 15 0RF unknown) (unknown) (no (unknown) (unknown) 12 point review (units (unknown) date) of systems is unknown) negative except for those stated above (unknown) (no (unknown) (unknown) 07/23/22 (units (unkno wn) date) 07/23/22 07/23/22 unknown) Range/Units (unknown) (no (unknown) (unknown) 07/23/22 22:06 (units (unknown) date) unknown) (unknown) (no (unknown) (unknown) 07/23/22 22:16 (units (unknown) date) unknown) (unknown) (no (unknown) (unknown) 07/23/22 22:22 (units (unknown) date) unknown) (unknown) (no (unknown) (unknown) 07/23/22 22:55 (units (unknown) date) unknown) (unknown) (no (unknown) (unknown) 07/23/22 23:30 (units (unknown) date) unknown) (unknown) (no (unknown) (unknown) 07/23/22 (units (unkno wn) date) Range/Units unknown) (unknown) (no (unknown) (unknown) 07/23/22 (units (unkno wn) date) unknown) (unknown) (no (unknown) (unknown) 22:13 07/24/22 (units (unknown) date) unknown) (unknown) (no (unknown) (unknown) 22:16 22:16 (units (un known) date) 22:22 unknown) (unknown) (no (unknown) (unknown) 23:30 (units (unkno wn) date) unknown) (unknown) (no (unknown) (unknown) 300 mg PO BID (units ( unknown) date) unknown) (unknown) (no (unknown) (unknown) 47-year-old male (units (unknown) date) smoker ?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 associated (unknown) (no (unknown) (unknown) 50 mg PO BID (units (u nknown) date) unknown) (unknown) (no (unknown) (unknown) ALT (<50) IU/L (units (unknown) date) unknown) (unknown) (no (unknown) (unknown) ALT 15 (<50) (units (u nknown) date) IU/L unknown) (unknown) (no (unknown) (unknown) AST (17-59) IU/L (units (unknown) date) unknown) (unknown) (no (unknown) (unknown) AST 13 L (17-59) (units (unknown) date) IU/L unknown) (unknown) (no (unknown) (unknown) Acetaminophen (units ( unknown) date) (Acetaminophen unknown) 325 Mg Tablet) 650 mg PO Q4H PRN (unknown) (no (unknown) (unknown) Age/Sex: 47 / M (units (unknown) date) unknown) (unknown) (no (unknown) (unknown) Albumin (units (unkno wn) date) (3.5-5.0) g/dL unknown) (unknown) (no (unknown) (unknown) Albumin 3.5 (units (un known) date) (3.5-5.0) g/dL unknown) (unknown) (no (unknown) (unknown) Albumin/Globulin (units (unknown) date) Ratio (1.0-2.8) unknown) (unknown) (no (unknown) (unknown) Albumin/Globulin (units (unknown) date) Ratio 1.1 unknown) (1.0-2.8) (unknown) (no (unknown) (unknown) Alkaline (units (unkno wn) date) Phosphatase unknown) (38-126) U/L (unknown) (no (unknown) (unknown) Alkaline (units (unkno wn) date) Phosphatase 84 unknown) (38-126) U/L (unknown) (no (unknown) (unknown) Allergies (units (unkn own) date) unknown) (unknown) (no (unknown) (unknown) Allergy/AdvReac (units (unknown) date) Type Severity unknown) Reaction Status Date / Time (unknown) (no (unknown) (unknown) BACK: Nontender (units (unknown) date) without deformity unknown) or crepitance. No flank tenderness. (unknown) (no (unknown) (unknown) BUN (9-20) mg/dL (units (unknown) date) unknown) (unknown) (no (unknown) (unknown) BUN 16 (9-20) (units ( unknown) date) mg/dL unknown) (unknown) (no (unknown) (unknown) BUN/Creatinine (units (unknown) date) Ratio (6-22) unknown) (unknown) (no (unknown) (unknown) BUN/Creatinine (units (unknown) date) Ratio 17.6 (6-22) unknown) (unknown) (no (unknown) (unknown) Back pain (units (unkn own) date) unknown) (unknown) (no (unknown) (unknown) Baso # (Auto) (units ( unknown) date) (0-100) /uL unknown) (unknown) (no (unknown) (unknown) Baso # (Auto) 0 (units (unknown) date) (0-100) /uL unknown) (unknown) (no (unknown) (unknown) Baso % (Auto) (units ( unknown) date) (0-2) % unknown) (unknown) (no (unknown) (unknown) Baso % (Auto) (units ( unknown) date) 0.6 (0-2) % unknown) (unknown) (no (unknown) (unknown) Blood Pressure (units (unknown) date) 144/96 H 07/23/22 unknown) 22:13 (unknown) (no (unknown) (unknown) Blood Pressure (units (unknown) date) 144/96 H 139/90 unknown) (unknown) (no (unknown) (unknown) CARDIOVASCULAR: (units (unknown) date) Denies chest unknown) pain, palpitations, orthopnea, edema, (unknown) (no (unknown) (unknown) CARDIOVASCULAR: (units (unknown) date) Regular rate and unknown) rhythm without murmurs, gallops, or rubs. (unknown) (no (unknown) (unknown) CT abdomen (units (unk nown) date) pelvis w con Stat unknown) (unknown) (no (unknown) (unknown) Calcium (units (unkno wn) date) (8.4-10.2) mg/dL unknown) (unknown) (no (unknown) (unknown) Calcium 8.5 (units (un known) date) (8.4-10.2) mg/dL unknown) (unknown) (no (unknown) (unknown) Carbon Dioxide (units (unknown) date) (22-32) mmol/L unknown) (unknown) (no (unknown) (unknown) Carbon Dioxide (units (unknown) date) 29 (22-32) mmol/L unknown) (unknown) (no (unknown) (unknown) Chief Complaint: (units (unknown) date) Abdominal Pain unknown) (unknown) (no (unknown) (unknown) Chloride (units (unkno wn) date) (98-107) mmol/L unknown) (unknown) (no (unknown) (unknown) Chloride 100 (units (u nknown) date) (98-107) mmol/L unknown) (unknown) (no (unknown) (unknown) Complete Blood (units (unknown) date) Count AUTO DIFF unknown) Stat (unknown) (no (unknown) (unknown) Comprehensive (units ( unknown) date) Metabolic Panel unknown) Stat (unknown) (no (unknown) (unknown) Course (units (unkno wn) date) unknown) (unknown) (no (unknown) (unknown) Covid-19 + FLU (units (unknown) date) A/B + RSV - PCR unknown) Stat (unknown) (no (unknown) (unknown) Creatinine (units (unk nown) date) (0.66-1.25) mg/dL unknown) (unknown) (no (unknown) (unknown) Creatinine 0.91 (units (unknown) date) (0.66-1.25) mg/dL unknown) (unknown) (no (unknown) (unknown) : 1975 (units (unknown) date) Acct:[id number] unknown) (unknown) (no (unknown) (unknown) Date of Service: (units (unknown) date) 07/23/22 unknown) (unknown) (no (unknown) (unknown) Departure (units (unkn own) date) unknown) (unknown) (no (unknown) (unknown) Discharge Plan (units (unknown) date) unknown) (unknown) (no (unknown) (unknown) Discontinued (units (u nknown) date) Medications unknown) (unknown) (no (unknown) (unknown) Documented By: (units (unknown) date) AP unknown) (unknown) (no (unknown) (unknown) ED Orders (units (unkn own) date) unknown) (unknown) (no (unknown) (unknown) EKG-12 Lead Stat (units (unknown) date) unknown) (unknown) (no (unknown) (unknown) ENT: Nose (units (unkn own) date) without bleeding, unknown) purulent drainage. Throat without erythema, (unknown) (no (unknown) (unknown) ER Physician: (units ( unknown) date) Stephan Issa unknown) D.O. (unknown) (no (unknown) (unknown) EXTREMITIES: No (units (unknown) date) edema or joint unknown) tenderness. (unknown) (no (unknown) (unknown) EYES: Pupils (units (u nknown) date) equal round and unknown) reactive. Extraocular motions intact. No scleral (unknown) (no (unknown) (unknown) Emergency Report (units (unknown) date) unknown) (unknown) (no (unknown) (unknown) Eos # (Auto) (units (u nknown) date) (0-450) /uL unknown) (unknown) (no (unknown) (unknown) Eos # (Auto) 400 (units (unknown) date) (0-450) /uL unknown) (unknown) (no (unknown) (unknown) Eos % (Auto) (units (u nknown) date) (2-4) % unknown) (unknown) (no (unknown) (unknown) Eos % (Auto) 4.5 (units (unknown) date) H (2-4) % unknown) (unknown) (no (unknown) (unknown) Estimated GFR > (units (unknown) date) 60 (>60) mL/min unknown) (unknown) (no (unknown) (unknown) Estimated GFR (units ( unknown) date) (>60) mL/min unknown) (unknown) (no (unknown) (unknown) Exam Narrative: (units (unknown) date) unknown) (unknown) (no (unknown) (unknown) Exam (units (unkno wn) date) unknown) (unknown) (no (unknown) (unknown) Family History (units (unknown) date) (Reviewed unknown) 07/23/22 @ 22:58 by Stephan Issa DO) (unknown) (no (unknown) (unknown) Father CVA (units (unk nown) date) (cerebral unknown) vascular accident) (unknown) (no (unknown) (unknown) Functional (units (unk nown) date) paraparesis unknown) (unknown) (no (unknown) (unknown) GASTROINTESTINAL (units (unknown) date) : Abdomen soft, unknown) tender to palpation nondistended. (unknown) (no (unknown) (unknown) GASTROINTESTINAL (units (unknown) date) : see HPI unknown) (unknown) (no (unknown) (unknown) GENERAL: Denies (units (unknown) date) chills, fatigue, unknown) malaise, fever, sweats. (unknown) (no (unknown) (unknown) GENERAL: [47] (units ( unknown) date) year old patient unknown) appears stated age. Well-developed patient, in (unknown) (no (unknown) (unknown) : Denies (units (unk nown) date) dysuria, unknown) frequency, incontinence, hematuria, urinary retention. (unknown) (no (unknown) (unknown) General (units (unkno wn) date) unknown) (unknown) (no (unknown) (unknown) Globulin (units (unkno wn) date) (1.7-4.1) g/dL unknown) (unknown) (no (unknown) (unknown) Globulin 3.2 (units (u nknown) date) (1.7-4.1) g/dL unknown) (unknown) (no (unknown) (unknown) Glucose (70-100) (units (unknown) date) mg/dL unknown) (unknown) (no (unknown) (unknown) Glucose 94 (units (unk nown) date) (70-100) mg/dL unknown) (unknown) (no (unknown) (unknown) HEAD: (units (unkno wn) date) Atraumatic. unknown) Normocephalic. (unknown) (no (unknown) (unknown) HEENT: Denies (units ( unknown) date) sinus pain, ear unknown) pain, sore throat, difficulty swallowing, (unknown) (no (unknown) (unknown) HPI - Abdominal (units (unknown) date) Pain unknown) (unknown) (no (unknown) (unknown) HPI narrative: (units (unknown) date) unknown) (unknown) (no (unknown) (unknown) Hct (41-53) % (units ( unknown) date) unknown) (unknown) (no (unknown) (unknown) Hct 36.3 L (units (unk nown) date) (41-53) % unknown) (unknown) (no (unknown) (unknown) He states that (units (unknown) date) he is had no unknown) fever or chills. He has been nauseated but denies (unknown) (no (unknown) (unknown) Hgb (13.5-17.5) (units (unknown) date) g/dL unknown) (unknown) (no (unknown) (unknown) Hgb 12.0 L (units (unk nown) date) (13.5-17.5) g/dL unknown) (unknown) (no (unknown) (unknown) History of (units (unk nown) date) Present Illness unknown) (unknown) (no (unknown) (unknown) History of (units (unk nown) date) spinal surgery unknown) (unknown) (no (unknown) (unknown) History of (units (unk nown) date) tonsillectomy unknown) (unknown) (no (unknown) (unknown) Home Medications (units (unknown) date) unknown) (unknown) (no (unknown) (unknown) Hypertension (units (u nknown) date) unknown) (unknown) (no (unknown) (unknown) Influenza A (units (un known) date) (RT-PCR) unknown) (NEGATIVE) (unknown) (no (unknown) (unknown) Influenza A (units (un known) date) (RT-PCR) Flu a unknown) negative (NEGATIVE) (unknown) (no (unknown) (unknown) Influenza B (units (un known) date) (RT-PCR) unknown) (NEGATIVE) (unknown) (no (unknown) (unknown) Influenza B (units (un known) date) (RT-PCR) Flu b unknown) negative (NEGATIVE) (unknown) (no (unknown) (unknown) Initial Vital (units ( unknown) date) Signs unknown) (unknown) (no (unknown) (unknown) Initial Vital (units ( unknown) date) Signs: unknown) (unknown) (no (unknown) (unknown) [facility] (units (unknown) date) [address] [place] [address] unknown) [place] [address] (unknown) (no (unknown) (unknown) Lab Data (units (unkno wn) date) unknown) (unknown) (no (unknown) (unknown) Lab Results (units (un known) date) unknown) (unknown) (no (unknown) (unknown) Label Comments: (units (unknown) date) unknown) (unknown) (no (unknown) (unknown) Labs: (units (unkno wn) date) unknown) (unknown) (no (unknown) (unknown) Last Admin: (units (un known) date) 07/24/22 00:15 unknown) Dose: 1 each (unknown) (no (unknown) (unknown) Last Admin: (units (un known) date) 07/24/22 00:15 unknown) Dose: 650 mg (unknown) (no (unknown) (unknown) Lidocaine (units (unkn own) date) (Lidocaine Patch unknown) 1 Each Adh..Patch) 1 each TOP NOW ONE (unknown) (no (unknown) (unknown) Lipase (23-300) (units (unknown) date) U/L unknown) (unknown) (no (unknown) (unknown) Lipase 47 (units (unkn own) date) (23-300) U/L unknown) (unknown) (no (unknown) (unknown) Lipase Stat (units (un known) date) unknown) (unknown) (no (unknown) (unknown) Lymph # (Auto) (units (unknown) date) (7097-6389) /uL unknown) (unknown) (no (unknown) (unknown) Lymph # (Auto) (units (unknown) date) 900 L (6094-8714) unknown) /uL (unknown) (no (unknown) (unknown) Lymph % (Auto) (units (unknown) date) (25-40) % unknown) (unknown) (no (unknown) (unknown) Lymph % (Auto) (units (unknown) date) 10.3 L (25-40) % unknown) (unknown) (no (unknown) (unknown) MCH (26-34) PG (units (unknown) date) unknown) (unknown) (no (unknown) (unknown) MCH 27.1 (26-34) (units (unknown) date) PG unknown) (unknown) (no (unknown) (unknown) MCHC (30-36) % (units (unknown) date) unknown) (unknown) (no (unknown) (unknown) MCHC 33.1 (units (unkn own) date) (30-36) % unknown) (unknown) (no (unknown) (unknown) MCV (80-100) fL (units (unknown) date) unknown) (unknown) (no (unknown) (unknown) MCV 81.7 (units (unkno wn) date) (80-100) fL unknown) (unknown) (no (unknown) (unknown) MDM - Abdominal (units (unknown) date) Pain unknown) (unknown) (no (unknown) (unknown) MUSCULOSKELETAL: (units (unknown) date) denies weakness, unknown) joint pain, or bony pain (unknown) (no (unknown) (unknown) Medical History (units (unknown) date) (Reviewed unknown) 07/23/22 @ 22:58 by Stephan Issa DO) (unknown) (no (unknown) (unknown) Medication (units (unk nown) date) Instructions unknown) Recorded Confirmed (unknown) (no (unknown) (unknown) Medication (units (unk nown) date) Instructions unknown) Recorded (unknown) (no (unknown) (unknown) Mode of arrival: (units (unknown) date) EMS unknown) (unknown) (no (unknown) (unknown) [place] # (Auto) (units ( unknown) date) (0-900) /uL unknown) (unknown) (no (unknown) (unknown) [place] # (Auto) (units ( unknown) date) 900 (0-900) /uL unknown) (unknown) (no (unknown) (unknown) [place] % (Auto) (units ( unknown) date) (3-14) % unknown) (unknown) (no (unknown) (unknown) [place] % (Auto) (units ( unknown) date) 11.0 (3-14) % unknown) (unknown) (no (unknown) (unknown) Mother (units (unkno wn) date) Myocardial unknown) infarct (unknown) (no (unknown) (unknown) NECK: Trachea (units ( unknown) date) midline. Non unknown) tender (unknown) (no (unknown) (unknown) NEURO: AOx3. (units (u nknown) date) unknown) (unknown) (no (unknown) (unknown) NEUROLOGIC: (units (un known) date) Denies weakness, unknown) headache, numbness, change in speech, confusion, (unknown) (no (unknown) (unknown) Narrative (units (unkn own) date) unknown) (unknown) (no (unknown) (unknown) Narrative: (units (unk nown) date) unknown) (unknown) (no (unknown) (unknown) Neurogenic pain (units (unknown) date) unknown) (unknown) (no (unknown) (unknown) Neut # (Auto) (units ( unknown) date) (0304-7983) /uL unknown) (unknown) (no (unknown) (unknown) Neut # (Auto) (units ( unknown) date) 6100 (5604-3900) unknown) /uL (unknown) (no (unknown) (unknown) Neut % (Auto) (units ( unknown) date) (50-75) % unknown) (unknown) (no (unknown) (unknown) Neut % (Auto) (units ( unknown) date) 73.6 (50-75) % unknown) (unknown) (no (unknown) (unknown) No Action (units (unkn own) date) unknown) (unknown) (no (unknown) (unknown) Ondansetron HCl (units (unknown) date) (Ondansetron 4 unknown) Mg/2 Ml Inj) 4 mg IV NOW PRN (unknown) (no (unknown) (unknown) Ordered: (units (unkno wn) date) unknown) (unknown) (no (unknown) (unknown) Orders (units (unkno wn) date) unknown) (unknown) (no (unknown) (unknown) Oxygen Delivery (units (unknown) date) Method 07/23/22 unknown) 22:13 (unknown) (no (unknown) (unknown) Oxygen Delivery (units (unknown) date) Method Room Air unknown) (unknown) (no (unknown) (unknown) PRN Reason: (units (un known) date) Fever/Mild Pain unknown) (1-3) (unknown) (no (unknown) (unknown) PRN Reason: (units (un known) date) Nausea And unknown) Vomiting (unknown) (no (unknown) (unknown) PSYCHIATRIC: No (units (unknown) date) concerning unknown) psychosocial issues. (unknown) (no (unknown) (unknown) Patient History (units (unknown) date) unknown) (unknown) (no (unknown) (unknown) Patient: Eleazar (units ( unknown) date) Yann Jones MR#: unknown) M00 (unknown) (no (unknown) (unknown) Plt Count (units (unkn own) date) (150-400) X103/uL unknown) (unknown) (no (unknown) (unknown) Plt Count 401 H (units (unknown) date) (150-400) X103/uL unknown) (unknown) (no (unknown) (unknown) Potassium (units (unkn own) date) (3.4-5.1) mmol/L unknown) (unknown) (no (unknown) (unknown) Potassium 4.4 (units ( unknown) date) (3.4-5.1) mmol/L unknown) (unknown) (no (unknown) (unknown) Prescriptions: (units (unknown) date) unknown) (unknown) (no (unknown) (unknown) Previous Rx's (units ( unknown) date) unknown) (unknown) (no (unknown) (unknown) Pulse Oximetry (units (unknown) date) 95 07/23/22 22:13 unknown) (unknown) (no (unknown) (unknown) Pulse Oximetry (units (unknown) date) 95 95 unknown) (unknown) (no (unknown) (unknown) Pulse Rate 111 H (units (unknown) date) 100 H unknown) (unknown) (no (unknown) (unknown) Pulse Rate 111 H (units (unknown) date) 07/23/22 22:13 unknown) (unknown) (no (unknown) (unknown) RBC (4.5-5.9) (units ( unknown) date) X106/uL unknown) (unknown) (no (unknown) (unknown) RBC 4.45 L (units (unk nown) date) (4.5-5.9) X106/uL unknown) (unknown) (no (unknown) (unknown) RDW (11.6-14.8) (units (unknown) date) % unknown) (unknown) (no (unknown) (unknown) RDW 16.7 H (units (unk nown) date) (11.6-14.8) % unknown) (unknown) (no (unknown) (unknown) RESPIRATORY: (units (un known) date) Clear to unknown) auscultation. Breath sounds equal bilaterally. No wheezes, (unknown) (no (unknown) (unknown) RESPIRATORY: (units (u nknown) date) Denies dyspnea, unknown) cough, wheezing, hemoptysis, sputum. (unknown) (no (unknown) (unknown) RSV (PCR) (units (unkn own) date) (Negative) unknown) (unknown) (no (unknown) (unknown) RSV (PCR) (units (unkn own) date) Negative unknown) (Negative) (unknown) (no (unknown) (unknown) Referrals: (units (unk nown) date) unknown) (unknown) (no (unknown) (unknown) Related Data (units (u nknown) date) unknown) (unknown) (no (unknown) (unknown) Respiratory Rate (units (unknown) date) 20 07/23/22 22:13 unknown) (unknown) (no (unknown) (unknown) Respiratory Rate (units (unknown) date) 20 18 unknown) (unknown) (no (unknown) (unknown) Result diagrams: (units (unknown) date) unknown) (unknown) (no (unknown) (unknown) Review of (units (unkn own) date) Systems unknown) (unknown) (no (unknown) (unknown) Rx Instructions: (units (unknown) date) unknown) (unknown) (no (unknown) (unknown) SARS-CoV-2 (PCR) (units (unknown) date) (Negative) unknown) (unknown) (no (unknown) (unknown) SARS-CoV-2 (PCR) (units (unknown) date) Positive H unknown) (Negative) (unknown) (no (unknown) (unknown) SKIN: Denies (units (u nknown) date) rash, skin unknown) lesions, or other (unknown) (no (unknown) (unknown) SKIN: No rash or (units (unknown) date) erythema of unknown) visible areas (unknown) (no (unknown) (unknown) 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 unknown) (unknown) (no (unknown) (unknown) Signed By: (units (unk nown) date) unknown) (unknown) (no (unknown) (unknown) Smoking Status: (units (unknown) date) Former smoker unknown) (unknown) (no (unknown) (unknown) Social History (units (unknown) date) (Reviewed unknown) 07/23/22 @ 22:58 by Stephan Issa DO) (unknown) (no (unknown) (unknown) Sodium (137-145) (units (unknown) date) mmol/L unknown) (unknown) (no (unknown) (unknown) Sodium 139 (units (unk nown) date) (137-145) mmol/L unknown) (unknown) (no (unknown) (unknown) Source: patient (units (unknown) date) unknown) (unknown) (no (unknown) (unknown) Stated (units (unkno wn) date) Complaint: LLQ unknown) Abd pain (unknown) (no (unknown) (unknown) Stop: 07/24/22 (units (unknown) date) 00:11 unknown) (unknown) (no (unknown) (unknown) Substance Use (units ( unknown) date) Type: does not unknown) use (unknown) (no (unknown) (unknown) Surgical History (units (unknown) date) (Reviewed unknown) 07/23/22 @ 22:58 by Stephan Issa DO) (unknown) (no (unknown) (unknown) Take 1 capsule (units (unknown) date) by mouth twice a unknown) day for chronic back pain (unknown) (no (unknown) (unknown) Take 1 tablet by (units (unknown) date) mouth twice a day unknown) (unknown) (no (unknown) (unknown) Temperature 98.4 (units (unknown) date) F 07/23/22 22:13 unknown) (unknown) (no (unknown) (unknown) Temperature 98.4 (units (unknown) date) F unknown) (unknown) (no (unknown) (unknown) Time Seen by (units (u nknown) date) Provider: unknown) 07/23/22 22:07 (unknown) (no (unknown) (unknown) Total Bilirubin (units (unknown) date) (0.2-1.3) mg/dL unknown) (unknown) (no (unknown) (unknown) Total Bilirubin (units (unknown) date) 0.3 (0.2-1.3) unknown) mg/dL (unknown) (no (unknown) (unknown) Total Protein (units ( unknown) date) (6.3-8.2) g/dL unknown) (unknown) (no (unknown) (unknown) Total Protein (units ( unknown) date) 6.7 (6.3-8.2) unknown) g/dL (unknown) (no (unknown) (unknown) Ur Leukocyte (units (u nknown) date) Esterase unknown) (NEGATIVE) (unknown) (no (unknown) (unknown) Ur Leukocyte (units (u nknown) date) Esterase 2+ H unknown) (NEGATIVE) (unknown) (no (unknown) (unknown) Ur Specific (units (un known) date) [place] unknown) (1.000-1.035) (unknown) (no (unknown) (unknown) Ur Specific (units (un known) date) [place] 1.010 unknown) (1.000-1.035) (unknown) (no (unknown) (unknown) Urinalysis and (units (unknown) date) Microscopic Stat unknown) (unknown) (no (unknown) (unknown) Urine Appearance (units (unknown) date) Cloudy unknown) (unknown) (no (unknown) (unknown) Urine Appearance (units (unknown) date) unknown) (unknown) (no (unknown) (unknown) Urine Bilirubin (units (unknown) date) (NEGATIVE) unknown) (unknown) (no (unknown) (unknown) Urine Bilirubin (units (unknown) date) Negative unknown) (NEGATIVE) (unknown) (no (unknown) (unknown) Urine Color (units (un known) date) Yellow unknown) (unknown) (no (unknown) (unknown) Urine Color (units (un known) date) unknown) (unknown) (no (unknown) (unknown) Urine Glucose (units ( unknown) date) (UA) (Negative) unknown) g/dL (unknown) (no (unknown) (unknown) Urine Glucose (units ( unknown) date) (UA) Trace H unknown) (Negative) g/dL (unknown) (no (unknown) (unknown) Urine Ketones (units ( unknown) date) (NEGATIVE) unknown) (unknown) (no (unknown) (unknown) Urine Ketones (units ( unknown) date) Negative unknown) (NEGATIVE) (unknown) (no (unknown) (unknown) Urine Nitrate (units ( unknown) date) (Negative) unknown) (unknown) (no (unknown) (unknown) Urine Nitrate (units ( unknown) date) Positive H unknown) (Negative) (unknown) (no (unknown) (unknown) Urine Occult (units (u nknown) date) Blood (Negative) unknown) (unknown) (no (unknown) (unknown) Urine Occult (units (u nknown) date) Blood 3+ H unknown) (Negative) (unknown) (no (unknown) (unknown) Urine Protein (units ( unknown) date) (Negative) unknown) (unknown) (no (unknown) (unknown) Urine Protein 1+ (units (unknown) date) H (Negative) unknown) (unknown) (no (unknown) (unknown) Urine (units (unkno wn) date) Urobilinogen unknown) (0.2) E.U./dL (unknown) (no (unknown) (unknown) Urine (units (unkno wn) date) Urobilinogen 0.2 unknown) (0.2) E.U./dL (unknown) (no (unknown) (unknown) Urine pH (units (unkno wn) date) (4.5-8.0) unknown) (unknown) (no (unknown) (unknown) Urine pH 7.0 (units (u nknown) date) (4.5-8.0) unknown) (unknown) (no (unknown) (unknown) Vital Signs - 8 (units (unknown) date) hr unknown) (unknown) (no (unknown) (unknown) Vital Signs (units (un known) date) unknown) (unknown) (no (unknown) (unknown) Vital signs: (units (u nknown) date) unknown) (unknown) (no (unknown) (unknown) WBC (4.5-11.0) (units (unknown) date) X103/uL unknown) (unknown) (no (unknown) (unknown) WBC 8.3 (units (unkno wn) date) (4.5-11.0) unknown) X103/uL (unknown) (no (unknown) (unknown) Danika García, (units (unknown) date) PA-C [Primary unknown) Care Provider] (unknown) (no (unknown) (unknown) [Embedded Image (units (unknown) date) Not Available] unknown) (unknown) (no (unknown) (unknown) alcohol intake (units (unknown) date) frequency: unknown) holidays/special occasions only (unknown) (no (unknown) (unknown) alcohol intake: (units (unknown) date) current unknown) (unknown) (no (unknown) (unknown) any significant (units (unknown) date) vomiting. He unknown) denies any changes bowel habits such as (unknown) (no (unknown) (unknown) constipation or (units (unknown) date) diarrhea. He does unknown) not think he is had any change in his urinary (unknown) (no (unknown) (unknown) dizziness. (units (unk nown) date) unknown) (unknown) (no (unknown) (unknown) gabapentin (units (unk nown) date) AdvReac Shakiness unknown) Verified 10/16/21 09:17 (unknown) (no (unknown) (unknown) habits. His pain (units (unknown) date) is in his lower unknown) anterior abdomen and is worse when he moves or (unknown) (no (unknown) (unknown) household (units (unkn own) date) members: spouse, unknown) children, friend(s) and other (unknown) (no (unknown) (unknown) icterus. No (units (un known) date) injection or unknown) drainage. (unknown) (no (unknown) (unknown) leave on most (units ( unknown) date) painful area for unknown) 12 hrs (unknown) (no (unknown) (unknown) lidocaine 5 % (units ( unknown) date) topical patch 1 unknown) patch topical DAILY #15 ea 07/11/22 (unknown) (no (unknown) (unknown) lidocaine (units (unkn own) date) [Lidoderm] 5 % unknown) adhesive patch,medicated (unknown) (no (unknown) (unknown) metoprolol (units (unk nown) date) tartrate 50 mg unknown) tablet 50 mg PO BID 10/15/21 10/15/21 (unknown) (no (unknown) (unknown) metoprolol (units (unk nown) date) tartrate 50 mg unknown) tablet (unknown) (no (unknown) (unknown) mild distress. (units (unknown) date) Obviously unknown) uncomfortable, holding an emesis bag (unknown) (no (unknown) (unknown) morphine Allergy (units (unknown) date) Nightmare unknown) Verified 10/16/21 09:17 (unknown) (no (unknown) (unknown) pregabalin 300 (units (unknown) date) mg capsule unknown) (Lyrica) 300 mg PO BID 10/15/21 10/15/21 (unknown) (no (unknown) (unknown) pregabalin (units (unk nown) date) [Lyrica] 300 mg unknown) capsule (unknown) (no (unknown) (unknown) rales, or (units (unkn own) date) rhonchi. unknown) (unknown) (no (unknown) (unknown) seizures, (units (unkn own) date) incoordination. unknown) (unknown) (no (unknown) (unknown) tonsillar (units (unkn own) date) hypertrophy or unknown) exudate. Airway patent. (unknown) (no (unknown) (unknown) with palpation (units (unknown) date) and improves with unknown) rest. (unknown) (no (unknown) (unknown) with (units (unkno wn) date) this?presents by unknown) EMS for evaluation about 1 week of lower abdominal pain. Result panel 1080 (unknown) (no date) (unknown) (unknown) >100/HPF (units (unkn own) unknown) (unknown) (no date) (unknown) (unknown) 0.2 e.u./dl (unkn own) (unknown) (no date) (unknown) (unknown) 1 (units (unkn own) unknown) (unknown) (no date) (unknown) (unknown) 1-5/HPF (units (unkn own) unknown) (unknown) (no date) (unknown) (unknown) 1.010 (units (unkn own) unknown) (unknown) (no date) (unknown) (unknown) 2 (units (unkn own) unknown) (unknown) (no date) (unknown) (unknown) 3 (units (unkn own) unknown) (unknown) (no date) (unknown) (unknown) 7.0 (units (unkn own) unknown) (unknown) (no date) (unknown) (unknown) CLOUDY (units (unkn own) unknown) (unknown) (no date) (unknown) (unknown) Many (>30) (units (un known) unknown) (unknown) (no date) (unknown) (unknown) NEGATIVE (units (unkn own) unknown) (unknown) (no date) (unknown) (unknown) POSITIVE (units (unkn own) unknown) (unknown) (no date) (unknown) (unknown) Specimen (units (unkn own) Cultured unknown) (unknown) (no date) (unknown) (unknown) TRACE g/dl (unkn own) (unknown) (no date) (unknown) (unknown) YELLOW (units (unkn own) unknown) (unknown) (no date) (unknown) (unknown) YELLOW (units (unkn own) unknown) Result panel 1081 (unknown) (no (unknown) (unknown) >100,000 cfu/ml (unkno wn) date) (unknown) (no (unknown) (unknown) STAAURStaphylococcus (uni ts (unknown) date) aureus unknown) (unknown) (no (unknown) (unknown) Sensitivity to Follow (un its (unknown) date) unknown) Result panel 1082 (unknown) (no (unknown) (unknown) (no value) (units (unk nown) date) unknown) (unknown) (no (unknown) (unknown) (Bactrim DS) (units (u nknown) date) unknown) (unknown) (no (unknown) (unknown) (Lidoderm) (units (unk nown) date) unknown) (unknown) (no (unknown) (unknown) *Please continue (units (unknown) date) to take your unknown) regular medications as directed. (unknown) (no (unknown) (unknown) *Please follow up (units (unknown) date) with your primary unknown) care provider in 2-3 days, call for an (unknown) (no (unknown) (unknown) *Return to (units (unk nown) date) Emergency unknown) Department if you should have any new, worsening or (unknown) (no (unknown) (unknown) *What to do: (units (u nknown) date) unknown) (unknown) (no (unknown) (unknown) *You have been (units (unknown) date) diagnosed with unknown) [abdominal pain with reassuring lab work, imaging (unknown) (no (unknown) (unknown) 00:00 (units (unkno wn) date) unknown) (unknown) (no (unknown) (unknown) [id number] (units (unkno wn) date) unknown) (unknown) (no (unknown) (unknown) 1 patch TOP DAILY (units (unknown) date) Qty: 15 0RF unknown) (unknown) (no (unknown) (unknown) 1 tab PO BID 10 (units (unknown) date) Days Qty: 20 0RF unknown) (unknown) (no (unknown) (unknown) 12 point review of (units (unknown) date) systems is negative unknown) except for those stated above (unknown) (no (unknown) (unknown) 07/23/22 07/23/22 (units (unknown) date) 07/23/22 unknown) Range/Units (unknown) (no (unknown) (unknown) 07/23/22 22:16 (units (unknown) date) unknown) (unknown) (no (unknown) (unknown) 07/23/22 (units (unkno wn) date) Range/Units unknown) (unknown) (no (unknown) (unknown) 07/23/22 (units (unkno wn) date) unknown) (unknown) (no (unknown) (unknown) 22:13 07/24/22 (units (unknown) date) unknown) (unknown) (no (unknown) (unknown) 22:16 22:16 22:22 (units (unknown) date) unknown) (unknown) (no (unknown) (unknown) 23:30 (units (unkno wn) date) unknown) (unknown) (no (unknown) (unknown) 300 mg PO BID (units ( unknown) date) unknown) (unknown) (no (unknown) (unknown) 47-year-old male (units (unknown) date) smoker ?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 associated (unknown) (no (unknown) (unknown) 50 mg PO BID (units (u nknown) date) unknown) (unknown) (no (unknown) (unknown) ALT (<50) IU/L (units (unknown) date) unknown) (unknown) (no (unknown) (unknown) ALT 15 (<50) IU/L (units (unknown) date) unknown) (unknown) (no (unknown) (unknown) AST (17-59) IU/L (units (unknown) date) unknown) (unknown) (no (unknown) (unknown) AST 13 L (17-59) (units (unknown) date) IU/L unknown) (unknown) (no (unknown) (unknown) Acetaminophen (units ( unknown) date) (Acetaminophen 325 unknown) Mg Tablet) 650 mg PO Q4H PRN (unknown) (no (unknown) (unknown) Activity (units (unkno wn) date) Restrictions/Additi unknown) onal Instructions: (unknown) (no (unknown) (unknown) Acute UTI (units (unkn own) date) unknown) (unknown) (no (unknown) (unknown) Age/Sex: 47 / M (units (unknown) date) unknown) (unknown) (no (unknown) (unknown) Albumin (3.5-5.0) (units (unknown) date) g/dL unknown) (unknown) (no (unknown) (unknown) Albumin 3.5 (units (un known) date) (3.5-5.0) g/dL unknown) (unknown) (no (unknown) (unknown) Albumin/Globulin (units (unknown) date) Ratio (1.0-2.8) unknown) (unknown) (no (unknown) (unknown) Albumin/Globulin (units (unknown) date) Ratio 1.1 (1.0-2.8) unknown) (unknown) (no (unknown) (unknown) Alkaline (units (unkno wn) date) Phosphatase unknown) (38-126) U/L (unknown) (no (unknown) (unknown) Alkaline (units (unkno wn) date) Phosphatase 84 unknown) (38-126) U/L (unknown) (no (unknown) (unknown) Allergies (units (unkn own) date) unknown) (unknown) (no (unknown) (unknown) Allergy/AdvReac (units (unknown) date) Type Severity unknown) Reaction Status Date / Time (unknown) (no (unknown) (unknown) BACK: Nontender (units (unknown) date) without deformity unknown) or crepitance. No flank tenderness. (unknown) (no (unknown) (unknown) BUN (9-20) mg/dL (units (unknown) date) unknown) (unknown) (no (unknown) (unknown) BUN 16 (9-20) (units ( unknown) date) mg/dL unknown) (unknown) (no (unknown) (unknown) BUN/Creatinine (units (unknown) date) Ratio (6-22) unknown) (unknown) (no (unknown) (unknown) BUN/Creatinine (units (unknown) date) Ratio 17.6 (6-22) unknown) (unknown) (no (unknown) (unknown) Back pain (units (unkn own) date) unknown) (unknown) (no (unknown) (unknown) Baso # (Auto) (units ( unknown) date) (0-100) /uL unknown) (unknown) (no (unknown) (unknown) Baso # (Auto) 0 (units (unknown) date) (0-100) /uL unknown) (unknown) (no (unknown) (unknown) Baso % (Auto) (units ( unknown) date) (0-2) % unknown) (unknown) (no (unknown) (unknown) Baso % (Auto) 0.6 (units (unknown) date) (0-2) % unknown) (unknown) (no (unknown) (unknown) Blood Pressure (units (unknown) date) 144/96 H 07/23/22 unknown) 22:13 (unknown) (no (unknown) (unknown) Blood Pressure (units (unknown) date) 144/96 H 139/90 unknown) (unknown) (no (unknown) (unknown) CARDIOVASCULAR: (units (unknown) date) Denies chest pain, unknown) palpitations, orthopnea, edema, (unknown) (no (unknown) (unknown) CARDIOVASCULAR: (units (unknown) date) Regular rate and unknown) rhythm without murmurs, gallops, or rubs. (unknown) (no (unknown) (unknown) Calcium (8.4-10.2) (units (unknown) date) mg/dL unknown) (unknown) (no (unknown) (unknown) Calcium 8.5 (units (un known) date) (8.4-10.2) mg/dL unknown) (unknown) (no (unknown) (unknown) Carbon Dioxide (units (unknown) date) (22-32) mmol/L unknown) (unknown) (no (unknown) (unknown) Carbon Dioxide 29 (units (unknown) date) (22-32) mmol/L unknown) (unknown) (no (unknown) (unknown) Chief Complaint: (units (unknown) date) Abdominal Pain unknown) (unknown) (no (unknown) (unknown) Chloride (98-107) (units (unknown) date) mmol/L unknown) (unknown) (no (unknown) (unknown) Chloride 100 (units (u nknown) date) (98-107) mmol/L unknown) (unknown) (no (unknown) (unknown) Clinical (units (unkno wn) date) Impression: unknown) (unknown) (no (unknown) (unknown) Course (units (unkno wn) date) unknown) (unknown) (no (unknown) (unknown) Creatinine (units (unk nown) date) (0.66-1.25) mg/dL unknown) (unknown) (no (unknown) (unknown) Creatinine 0.91 (units (unknown) date) (0.66-1.25) mg/dL unknown) (unknown) (no (unknown) (unknown) : 1975 (units (unknown) date) Acct:[id number] unknown) (unknown) (no (unknown) (unknown) Date of Service: (units (unknown) date) 07/23/22 unknown) (unknown) (no (unknown) (unknown) Departure (units (unkn own) date) unknown) (unknown) (no (unknown) (unknown) Discharge Plan (units (unknown) date) unknown) (unknown) (no (unknown) (unknown) Discontinued (units (u nknown) date) Medications unknown) (unknown) (no (unknown) (unknown) Documented By: AP (units (unknown) date) unknown) (unknown) (no (unknown) (unknown) ENT: Nose without (units (unknown) date) bleeding, purulent unknown) drainage. Throat without erythema, (unknown) (no (unknown) (unknown) ER Physician: (units ( unknown) date) Stephan Issa D.O. unknown) (unknown) (no (unknown) (unknown) EXTREMITIES: No (units (unknown) date) edema or joint unknown) tenderness. (unknown) (no (unknown) (unknown) EYES: Pupils equal (units (unknown) date) round and reactive. unknown) Extraocular motions intact. No scleral (unknown) (no (unknown) (unknown) Emergency Report (units (unknown) date) unknown) (unknown) (no (unknown) (unknown) Eos # (Auto) (units (u nknown) date) (0-450) /uL unknown) (unknown) (no (unknown) (unknown) Eos # (Auto) 400 (units (unknown) date) (0-450) /uL unknown) (unknown) (no (unknown) (unknown) Eos % (Auto) (2-4) (units (unknown) date) % unknown) (unknown) (no (unknown) (unknown) Eos % (Auto) 4.5 H (units (unknown) date) (2-4) % unknown) (unknown) (no (unknown) (unknown) Estimated GFR > 60 (units (unknown) date) (>60) mL/min unknown) (unknown) (no (unknown) (unknown) Estimated GFR (units ( unknown) date) (>60) mL/min unknown) (unknown) (no (unknown) (unknown) Exam Narrative: (units (unknown) date) unknown) (unknown) (no (unknown) (unknown) Exam (units (unkno wn) date) unknown) (unknown) (no (unknown) (unknown) Family History (units (unknown) date) (Reviewed 07/23/22 unknown) @ 22:58 by Stephan Issa DO) (unknown) (no (unknown) (unknown) Father CVA (units (unk nown) date) (cerebral vascular unknown) accident) (unknown) (no (unknown) (unknown) Functional (units (unk nown) date) paraparesis unknown) (unknown) (no (unknown) (unknown) GASTROINTESTINAL: (units (unknown) date) Abdomen soft, unknown) tender to palpation nondistended. (unknown) (no (unknown) (unknown) GASTROINTESTINAL: (units (unknown) date) see HPI unknown) (unknown) (no (unknown) (unknown) GENERAL: Denies (units (unknown) date) chills, fatigue, unknown) malaise, fever, sweats. (unknown) (no (unknown) (unknown) GENERAL: [47] year (units (unknown) date) old patient appears unknown) stated age. Well-developed patient, in (unknown) (no (unknown) (unknown) : Denies (units (unk nown) date) dysuria, frequency, unknown) incontinence, hematuria, urinary retention. (unknown) (no (unknown) (unknown) General (units (unkno wn) date) unknown) (unknown) (no (unknown) (unknown) Globulin (1.7-4.1) (units (unknown) date) g/dL unknown) (unknown) (no (unknown) (unknown) Globulin 3.2 (units (u nknown) date) (1.7-4.1) g/dL unknown) (unknown) (no (unknown) (unknown) Glucose (70-100) (units (unknown) date) mg/dL unknown) (unknown) (no (unknown) (unknown) Glucose 94 (units (unk nown) date) (70-100) mg/dL unknown) (unknown) (no (unknown) (unknown) HEAD: Atraumatic. (units (unknown) date) Normocephalic. unknown) (unknown) (no (unknown) (unknown) HEENT: Denies (units ( unknown) date) sinus pain, ear unknown) pain, sore throat, difficulty swallowing, (unknown) (no (unknown) (unknown) HPI - Abdominal (units (unknown) date) Pain unknown) (unknown) (no (unknown) (unknown) HPI narrative: (units (unknown) date) unknown) (unknown) (no (unknown) (unknown) Hct (41-53) % (units ( unknown) date) unknown) (unknown) (no (unknown) (unknown) Hct 36.3 L (41-53) (units (unknown) date) % unknown) (unknown) (no (unknown) (unknown) He states that he (units (unknown) date) is had no fever or unknown) chills. He has been nauseated but denies (unknown) (no (unknown) (unknown) Hgb (13.5-17.5) (units (unknown) date) g/dL unknown) (unknown) (no (unknown) (unknown) Hgb 12.0 L (units (unk nown) date) (13.5-17.5) g/dL unknown) (unknown) (no (unknown) (unknown) History of Present (units (unknown) date) Illness unknown) (unknown) (no (unknown) (unknown) History of spinal (units (unknown) date) surgery unknown) (unknown) (no (unknown) (unknown) History of (units (unk nown) date) tonsillectomy unknown) (unknown) (no (unknown) (unknown) Home Medications (units (unknown) date) unknown) (unknown) (no (unknown) (unknown) Hydrocodone (units (un known) date) Bitart/Acetaminophe unknown) n (Hydrocodone/Acet 5/325 Prepack) 1 bottle MISC (unknown) (no (unknown) (unknown) Hypertension (units (u nknown) date) unknown) (unknown) (no (unknown) (unknown) Influenza A (units (un known) date) (RT-PCR) (NEGATIVE) unknown) (unknown) (no (unknown) (unknown) Influenza A (units (un known) date) (RT-PCR) Flu a unknown) negative (NEGATIVE) (unknown) (no (unknown) (unknown) Influenza B (units (un known) date) (RT-PCR) (NEGATIVE) unknown) (unknown) (no (unknown) (unknown) Influenza B (units (un known) date) (RT-PCR) Flu b unknown) negative (NEGATIVE) (unknown) (no (unknown) (unknown) Initial Vital (units ( unknown) date) Signs unknown) (unknown) (no (unknown) (unknown) Initial Vital (units ( unknown) date) Signs: unknown) (unknown) (no (unknown) (unknown) Instructions: DI (units (unknown) date) for Urinary Tract unknown) Infection (UTI) (unknown) (no (unknown) (unknown) [facility] (units (unknown) date) [address] [place] [address] unknown) [place] [address] (unknown) (no (unknown) (unknown) Lab Data (units (unkno wn) date) unknown) (unknown) (no (unknown) (unknown) Lab Results (units (un known) date) unknown) (unknown) (no (unknown) (unknown) Label Comments: (units (unknown) date) unknown) (unknown) (no (unknown) (unknown) Labs: (units (unkno wn) date) unknown) (unknown) (no (unknown) (unknown) Last Admin: (units (un known) date) 07/24/22 00:15 unknown) Dose: 1 each (unknown) (no (unknown) (unknown) Last Admin: (units (un known) date) 07/24/22 00:15 unknown) Dose: 650 mg (unknown) (no (unknown) (unknown) Last Admin: (units (un known) date) 07/24/22 03:20 unknown) Dose: 1 tab (unknown) (no (unknown) (unknown) Last Admin: (units (un known) date) 07/24/22 03:23 unknown) Dose: 1 bottle (unknown) (no (unknown) (unknown) Lidocaine (units (unkn own) date) (Lidocaine Patch 1 unknown) Each Adh..Patch) 1 each TOP NOW ONE (unknown) (no (unknown) (unknown) Lipase (23-300) (units (unknown) date) U/L unknown) (unknown) (no (unknown) (unknown) Lipase 47 (23-300) (units (unknown) date) U/L unknown) (unknown) (no (unknown) (unknown) Lymph # (Auto) (units (unknown) date) (3304-8934) /uL unknown) (unknown) (no (unknown) (unknown) Lymph # (Auto) 900 (units (unknown) date) L (8560-7255) /uL unknown) (unknown) (no (unknown) (unknown) Lymph % (Auto) (units (unknown) date) (25-40) % unknown) (unknown) (no (unknown) (unknown) Lymph % (Auto) (units (unknown) date) 10.3 L (25-40) % unknown) (unknown) (no (unknown) (unknown) MCH (26-34) PG (units (unknown) date) unknown) (unknown) (no (unknown) (unknown) MCH 27.1 (26-34) (units (unknown) date) PG unknown) (unknown) (no (unknown) (unknown) MCHC (30-36) % (units (unknown) date) unknown) (unknown) (no (unknown) (unknown) MCHC 33.1 (30-36) (units (unknown) date) % unknown) (unknown) (no (unknown) (unknown) MCV (80-100) fL (units (unknown) date) unknown) (unknown) (no (unknown) (unknown) MCV 81.7 (80-100) (units (unknown) date) fL unknown) (unknown) (no (unknown) (unknown) MDM - Abdominal (units (unknown) date) Pain unknown) (unknown) (no (unknown) (unknown) MUSCULOSKELETAL: (units (unknown) date) denies weakness, unknown) joint pain, or bony pain (unknown) (no (unknown) (unknown) Medical History (units (unknown) date) (Reviewed 07/23/22 unknown) @ 22:58 by Stephan Issa DO) (unknown) (no (unknown) (unknown) Medication (units (unk nown) date) Instructions unknown) Recorded Confirmed (unknown) (no (unknown) (unknown) Medication (units (unk nown) date) Instructions unknown) Recorded (unknown) (no (unknown) (unknown) Mode of arrival: (units (unknown) date) EMS unknown) (unknown) (no (unknown) (unknown) [place] # (Auto) (units ( unknown) date) (0-900) /uL unknown) (unknown) (no (unknown) (unknown) [place] # (Auto) 900 (units (unknown) date) (0-900) /uL unknown) (unknown) (no (unknown) (unknown) [place] % (Auto) (units ( unknown) date) (3-14) % unknown) (unknown) (no (unknown) (unknown) [place] % (Auto) 11.0 (units (unknown) date) (3-14) % unknown) (unknown) (no (unknown) (unknown) Mother Myocardial (units (unknown) date) infarct unknown) (unknown) (no (unknown) (unknown) NECK: Trachea (units ( unknown) date) midline. Non tender unknown) (unknown) (no (unknown) (unknown) NEURO: AOx3. (units (u nknown) date) unknown) (unknown) (no (unknown) (unknown) NEUROLOGIC: Denies (units (unknown) date) weakness, headache, unknown) numbness, change in speech, confusion, (unknown) (no (unknown) (unknown) Narrative (units (unkn own) date) unknown) (unknown) (no (unknown) (unknown) Narrative: (units (unk nown) date) unknown) (unknown) (no (unknown) (unknown) Neurogenic pain (units (unknown) date) unknown) (unknown) (no (unknown) (unknown) Neut # (Auto) (units ( unknown) date) (2445-3325) /uL unknown) (unknown) (no (unknown) (unknown) Neut # (Auto) 6100 (units (unknown) date) (6320-9477) /uL unknown) (unknown) (no (unknown) (unknown) Neut % (Auto) (units ( unknown) date) (50-75) % unknown) (unknown) (no (unknown) (unknown) Neut % (Auto) 73.6 (units (unknown) date) (50-75) % unknown) (unknown) (no (unknown) (unknown) New (units (unkno wn) date) unknown) (unknown) (no (unknown) (unknown) No Action (units (unkn own) date) unknown) (unknown) (no (unknown) (unknown) ONE (units (unkno wn) date) unknown) (unknown) (no (unknown) (unknown) Ondansetron HCl (units (unknown) date) (Ondansetron 4 Mg unknown) Odt Prepack) 1 bottle MISC SEEINSTR ONE (unknown) (no (unknown) (unknown) Ondansetron HCl (units (unknown) date) (Ondansetron 4 Mg/2 unknown) Ml Inj) 4 mg IV NOW PRN (unknown) (no (unknown) (unknown) Ordered: (units (unkno wn) date) unknown) (unknown) (no (unknown) (unknown) Orders (units (unkno wn) date) unknown) (unknown) (no (unknown) (unknown) Oxygen Delivery (units (unknown) date) Method 07/23/22 unknown) 22:13 (unknown) (no (unknown) (unknown) Oxygen Delivery (units (unknown) date) Method Room Air unknown) (unknown) (no (unknown) (unknown) PRN Reason: (units (un known) date) Fever/Mild Pain unknown) (1-3) (unknown) (no (unknown) (unknown) PRN Reason: Nausea (units (unknown) date) And Vomiting unknown) (unknown) (no (unknown) (unknown) PSYCHIATRIC: No (units (unknown) date) concerning unknown) psychosocial issues. (unknown) (no (unknown) (unknown) Patient (units (unkno wn) date) Disposition: Home unknown) (unknown) (no (unknown) (unknown) Patient History (units (unknown) date) unknown) (unknown) (no (unknown) (unknown) Patient: Bush (units ( unknown) date) Yann Jones MR#: [id number] unknown) (unknown) (no (unknown) (unknown) Plt Count (units (unkn own) date) (150-400) X103/uL unknown) (unknown) (no (unknown) (unknown) Plt Count 401 H (units (unknown) date) (150-400) X103/uL unknown) (unknown) (no (unknown) (unknown) Potassium (units (unkn own) date) (3.4-5.1) mmol/L unknown) (unknown) (no (unknown) (unknown) Potassium 4.4 (units ( unknown) date) (3.4-5.1) mmol/L unknown) (unknown) (no (unknown) (unknown) Prescriptions: (units (unknown) date) unknown) (unknown) (no (unknown) (unknown) Previous Rx's (units ( unknown) date) unknown) (unknown) (no (unknown) (unknown) Pulse Oximetry 95 (units (unknown) date) 07/23/22 22:13 unknown) (unknown) (no (unknown) (unknown) Pulse Oximetry 95 (units (unknown) date) 95 unknown) (unknown) (no (unknown) (unknown) Pulse Rate 111 H (units (unknown) date) 100 H unknown) (unknown) (no (unknown) (unknown) Pulse Rate 111 H (units (unknown) date) 07/23/22 22:13 unknown) (unknown) (no (unknown) (unknown) RBC (4.5-5.9) (units ( unknown) date) X106/uL unknown) (unknown) (no (unknown) (unknown) RBC 4.45 L (units (unk nown) date) (4.5-5.9) X106/uL unknown) (unknown) (no (unknown) (unknown) RDW (11.6-14.8) % (units (unknown) date) unknown) (unknown) (no (unknown) (unknown) RDW 16.7 H (units (unk nown) date) (11.6-14.8) % unknown) (unknown) (no (unknown) (unknown) RESPIRATORY: Clear (units (unknown) date) to auscultation. unknown) Breath sounds equal bilaterally. No wheezes, (unknown) (no (unknown) (unknown) RESPIRATORY: (units (u nknown) date) Denies dyspnea, unknown) cough, wheezing, hemoptysis, sputum. (unknown) (no (unknown) (unknown) RSV (PCR) (units (unkn own) date) (Negative) unknown) (unknown) (no (unknown) (unknown) RSV (PCR) Negative (units (unknown) date) (Negative) unknown) (unknown) (no (unknown) (unknown) Referrals: (units (unk nown) date) unknown) (unknown) (no (unknown) (unknown) Related Data (units (u nknown) date) unknown) (unknown) (no (unknown) (unknown) Respiratory Rate (units (unknown) date) 20 07/23/22 22:13 unknown) (unknown) (no (unknown) (unknown) Respiratory Rate (units (unknown) date) 20 18 unknown) (unknown) (no (unknown) (unknown) Result diagrams: (units (unknown) date) unknown) (unknown) (no (unknown) (unknown) Review of Systems (units (unknown) date) unknown) (unknown) (no (unknown) (unknown) Rx Instructions: (units (unknown) date) unknown) (unknown) (no (unknown) (unknown) SARS-CoV-2 (PCR) (units (unknown) date) (Negative) unknown) (unknown) (no (unknown) (unknown) SARS-CoV-2 (PCR) (units (unknown) date) Positive H unknown) (Negative) (unknown) (no (unknown) (unknown) SEEINSTR ONE (units (u nknown) date) unknown) (unknown) (no (unknown) (unknown) SKIN: Denies rash, (units (unknown) date) skin lesions, or unknown) other (unknown) (no (unknown) (unknown) SKIN: No rash or (units (unknown) date) erythema of visible unknown) areas (unknown) (no (unknown) (unknown) 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 unknown) (unknown) (no (unknown) (unknown) Signed By: (units (unk nown) date) unknown) (unknown) (no (unknown) (unknown) Smoking Status: (units (unknown) date) Former smoker unknown) (unknown) (no (unknown) (unknown) Social History (units (unknown) date) (Reviewed 07/23/22 unknown) @ 22:58 by Stephan Issa DO) (unknown) (no (unknown) (unknown) Sodium (137-145) (units (unknown) date) mmol/L unknown) (unknown) (no (unknown) (unknown) Sodium 139 (units (unk nown) date) (137-145) mmol/L unknown) (unknown) (no (unknown) (unknown) Source: patient (units (unknown) date) unknown) (unknown) (no (unknown) (unknown) Stated Complaint: (units (unknown) date) LLQ Abd pain unknown) (unknown) (no (unknown) (unknown) Stop: 07/24/22 (units (unknown) date) 00:11 unknown) (unknown) (no (unknown) (unknown) Stop: 07/24/22 (units (unknown) date) 03:12 unknown) (unknown) (no (unknown) (unknown) Stop: 07/24/22 (units (unknown) date) 03:13 unknown) (unknown) (no (unknown) (unknown) Substance Use (units ( unknown) date) Type: does not use unknown) (unknown) (no (unknown) (unknown) Surgical History (units (unknown) date) (Reviewed 07/23/22 unknown) @ 22:58 by Stephan Issa DO) (unknown) (no (unknown) (unknown) Take 1 capsule by (units (unknown) date) mouth twice a day unknown) for chronic back pain (unknown) (no (unknown) (unknown) Take 1 tablet by (units (unknown) date) mouth twice a day unknown) (unknown) (no (unknown) (unknown) Temperature 98.4 F (units (unknown) date) 07/23/22 22:13 unknown) (unknown) (no (unknown) (unknown) Temperature 98.4 F (units (unknown) date) unknown) (unknown) (no (unknown) (unknown) Time Seen by (units (u nknown) date) Provider: 07/23/22 unknown) 22:07 (unknown) (no (unknown) (unknown) Total Bilirubin (units (unknown) date) (0.2-1.3) mg/dL unknown) (unknown) (no (unknown) (unknown) Total Bilirubin (units (unknown) date) 0.3 (0.2-1.3) mg/dL unknown) (unknown) (no (unknown) (unknown) Total Protein (units ( unknown) date) (6.3-8.2) g/dL unknown) (unknown) (no (unknown) (unknown) Total Protein 6.7 (units (unknown) date) (6.3-8.2) g/dL unknown) (unknown) (no (unknown) (unknown) Trimethoprim/Sulfa (units (unknown) date) methoxazole unknown) (Trimeth/Sulfa 160/800 (Ds) Tablet) 1 tab PO NOW (unknown) (no (unknown) (unknown) Ur Culture (units (unk nown) date) Indicated? Specimen unknown) cultured (unknown) (no (unknown) (unknown) Ur Culture (units (unk nown) date) Indicated? unknown) (unknown) (no (unknown) (unknown) Ur Leukocyte (units (u nknown) date) Esterase (NEGATIVE) unknown) (unknown) (no (unknown) (unknown) Ur Leukocyte (units (u nknown) date) Esterase 2+ H unknown) (NEGATIVE) (unknown) (no (unknown) (unknown) Ur Specific (units (un known) date) [place] unknown) (1.000-1.035) (unknown) (no (unknown) (unknown) Ur Specific (units (un known) date) [place] 1.010 unknown) (1.000-1.035) (unknown) (no (unknown) (unknown) Urine Appearance (units (unknown) date) Cloudy unknown) (unknown) (no (unknown) (unknown) Urine Appearance (units (unknown) date) unknown) (unknown) (no (unknown) (unknown) Urine Bacteria (units (unknown) date) (None) unknown) (unknown) (no (unknown) (unknown) Urine Bacteria (units (unknown) date) Many (>30) H (None) unknown) (unknown) (no (unknown) (unknown) Urine Bilirubin (units (unknown) date) (NEGATIVE) unknown) (unknown) (no (unknown) (unknown) Urine Bilirubin (units (unknown) date) Negative (NEGATIVE) unknown) (unknown) (no (unknown) (unknown) Urine Color Yellow (units (unknown) date) unknown) (unknown) (no (unknown) (unknown) Urine Color (units (un known) date) unknown) (unknown) (no (unknown) (unknown) Urine Glucose (UA) (units (unknown) date) (Negative) g/dL unknown) (unknown) (no (unknown) (unknown) Urine Glucose (UA) (units (unknown) date) Trace H (Negative) unknown) g/dL (unknown) (no (unknown) (unknown) Urine Ketones (units ( unknown) date) (NEGATIVE) unknown) (unknown) (no (unknown) (unknown) Urine Ketones (units ( unknown) date) Negative (NEGATIVE) unknown) (unknown) (no (unknown) (unknown) Urine Nitrate (units ( unknown) date) (Negative) unknown) (unknown) (no (unknown) (unknown) Urine Nitrate (units ( unknown) date) Positive H unknown) (Negative) (unknown) (no (unknown) (unknown) Urine Occult Blood (units (unknown) date) (Negative) unknown) (unknown) (no (unknown) (unknown) Urine Occult Blood (units (unknown) date) 3+ H (Negative) unknown) (unknown) (no (unknown) (unknown) Urine Protein (units ( unknown) date) (Negative) unknown) (unknown) (no (unknown) (unknown) Urine Protein 1+ H (units (unknown) date) (Negative) unknown) (unknown) (no (unknown) (unknown) Urine RBC (units (unkn own) date) (0-5/HPF) unknown) (unknown) (no (unknown) (unknown) Urine RBC 1-5/hpf (units (unknown) date) (0-5/HPF) unknown) (unknown) (no (unknown) (unknown) Urine Urobilinogen (units (unknown) date) (0.2) E.U./dL unknown) (unknown) (no (unknown) (unknown) Urine Urobilinogen (units (unknown) date) 0.2 (0.2) E.U./dL unknown) (unknown) (no (unknown) (unknown) Urine WBC >100/hpf (units (unknown) date) H (0-5/HPF) unknown) (unknown) (no (unknown) (unknown) Urine WBC (units (unkn own) date) (0-5/HPF) unknown) (unknown) (no (unknown) (unknown) Urine pH (4.5-8.0) (units (unknown) date) unknown) (unknown) (no (unknown) (unknown) Urine pH 7.0 (units (u nknown) date) (4.5-8.0) unknown) (unknown) (no (unknown) (unknown) Visit Report (units (u nknown) date) Forms: Patient unknown) Portal/API (unknown) (no (unknown) (unknown) Vital Signs - 8 hr (units (unknown) date) unknown) (unknown) (no (unknown) (unknown) Vital Signs (units (un known) date) unknown) (unknown) (no (unknown) (unknown) Vital signs: (units (u nknown) date) unknown) (unknown) (no (unknown) (unknown) WBC (4.5-11.0) (units (unknown) date) X103/uL unknown) (unknown) (no (unknown) (unknown) WBC 8.3 (4.5-11.0) (units (unknown) date) X103/uL unknown) (unknown) (no (unknown) (unknown) Danika García, (units (unknown) date) KIANNA [Primary Care unknown) Provider] (unknown) (no (unknown) (unknown) [ ] New medication (units (unknown) date) written as a paper unknown) prescription (unknown) (no (unknown) (unknown) [ ] No new (units (unk nown) date) medications given unknown) (unknown) (no (unknown) (unknown) [ x] New (units (unkno wn) date) medication unknown) prescriptions sent to your pharmacy: [[facility] ] (unknown) (no (unknown) (unknown) [Embedded Image (units (unknown) date) Not Available] unknown) (unknown) (no (unknown) (unknown) alcohol intake (units (unknown) date) frequency: unknown) holidays/special occasions only (unknown) (no (unknown) (unknown) alcohol intake: (units (unknown) date) current unknown) (unknown) (no (unknown) (unknown) and urine would (units (unknown) date) suggest a urine unknown) infection with some mild swelling in her (unknown) (no (unknown) (unknown) any significant (units (unknown) date) vomiting. He denies unknown) any changes bowel habits such as (unknown) (no (unknown) (unknown) appointment. Let (units (unknown) date) them know you were unknown) seen in the Emergency Department and that we (unknown) (no (unknown) (unknown) ask that you be (units (unknown) date) seen in follow up. unknown) We will electronically transmit a record of (unknown) (no (unknown) (unknown) concerning (units (unk nown) date) symptoms, such as unknown) [fever greater than 101 F, shaking chills, (unknown) (no (unknown) (unknown) constipation or (units (unknown) date) diarrhea. He does unknown) not think he is had any change in his urinary (unknown) (no (unknown) (unknown) dizziness. (units (unk nown) date) unknown) (unknown) (no (unknown) (unknown) gabapentin AdvReac (units (unknown) date) Shakiness Verified unknown) 10/16/21 09:17 (unknown) (no (unknown) (unknown) habits. His pain (units (unknown) date) is in his lower unknown) anterior abdomen and is worse when he moves or (unknown) (no (unknown) (unknown) household members: (units (unknown) date) spouse, children, unknown) friend(s) and other (unknown) (no (unknown) (unknown) icterus. No (units (un known) date) injection or unknown) drainage. (unknown) (no (unknown) (unknown) kidneys.] (units (unkn own) date) unknown) (unknown) (no (unknown) (unknown) leave on most (units ( unknown) date) painful area for 12 unknown) hrs (unknown) (no (unknown) (unknown) lidocaine 5 % (units ( unknown) date) topical patch 1 unknown) patch topical DAILY #15 ea 07/11/22 (unknown) (no (unknown) (unknown) lidocaine (units (unkn own) date) [Lidoderm] 5 % unknown) adhesive patch,medicated (unknown) (no (unknown) (unknown) metoprolol (units (unk nown) date) tartrate 50 mg unknown) tablet 50 mg PO BID 10/15/21 10/15/21 (unknown) (no (unknown) (unknown) metoprolol (units (unk nown) date) tartrate 50 mg unknown) tablet (unknown) (no (unknown) (unknown) mg-trimethoprim (units (unknown) date) 160 mg tablet unknown) (unknown) (no (unknown) (unknown) mild distress. (units (unknown) date) Obviously unknown) uncomfortable, holding an emesis bag (unknown) (no (unknown) (unknown) morphine Allergy (units (unknown) date) Nightmare Verified unknown) 10/16/21 09:17 (unknown) (no (unknown) (unknown) pregabalin 300 mg (units (unknown) date) capsule (Lyrica) unknown) 300 mg PO BID 10/15/21 10/15/21 (unknown) (no (unknown) (unknown) pregabalin (units (unk nown) date) [Lyrica] 300 mg unknown) capsule (unknown) (no (unknown) (unknown) rales, or rhonchi. (units (unknown) date) unknown) (unknown) (no (unknown) (unknown) seizures, (units (unkn own) date) incoordination. unknown) (unknown) (no (unknown) (unknown) sulfamethoxazole (units (unknown) date) 800 1 tab PO BID 10 unknown) days #20 tabs 07/24/22 (unknown) (no (unknown) (unknown) sulfamethoxazole-t (units (unknown) date) rimethoprim unknown) [Bactrim DS] 800-160 mg tablet (unknown) (no (unknown) (unknown) today's note if (units (unknown) date) your PCP is in our unknown) system (unknown) (no (unknown) (unknown) tonsillar (units (unkn own) date) hypertrophy or unknown) exudate. Airway patent. (unknown) (no (unknown) (unknown) with palpation and (units (unknown) date) improves with rest. unknown) (unknown) (no (unknown) (unknown) with this?presents (units (unknown) date) by EMS for unknown) evaluation about 1 week of lower abdominal pain. (unknown) (no (unknown) (unknown) worsening pain, (units (unknown) date) persistent vomiting unknown) or other bothersome symptoms] Result panel 1083 (unknown) (no (unknown) (unknown) (no value) (units (unk nown) date) unknown) (unknown) (no (unknown) (unknown) <Electronically signed (u nits (unknown) date) by Stephan Issa D.O.> unknow n) (unknown) (no (unknown) (unknown) (Bactrim DS) (units (u nknown) date) unknown) (unknown) (no (unknown) (unknown) (Lidoderm) (units (unk nown) date) unknown) (unknown) (no (unknown) (unknown) *Please continue to (unit s (unknown) date) take your regular unknown) medications as directed. (unknown) (no (unknown) (unknown) *Please follow up with (u nits (unknown) date) your primary care unknown) provider in 2-3 days, call for an (unknown) (no (unknown) (unknown) *Return to Emergency (uni ts (unknown) date) Department if you unknown) should have any new, worsening or (unknown) (no (unknown) (unknown) *What to do: (units (u nknown) date) unknown) (unknown) (no (unknown) (unknown) *You have been (units (unknown) date) diagnosed with unknown) [abdominal pain with reassuring lab work, imaging (unknown) (no (unknown) (unknown) 00:00 (units (unkno wn) date) unknown) (unknown) (no (unknown) (unknown) 10/15/21 (units (unkno wn) date) unknown) (unknown) (no (unknown) (unknown) 10/16/21 (units (unkno wn) date) unknown) (unknown) (no (unknown) (unknown) 10/27/21 (units (unkno wn) date) unknown) (unknown) (no (unknown) (unknown) 10/31/21 (units (unkno wn) date) unknown) (unknown) (no (unknown) (unknown) [id number] (units (unkno wn) date) unknown) (unknown) (no (unknown) (unknown) 1 patch TOP DAILY Qty: (u nits (unknown) date) 15 0RF unknown) (unknown) (no (unknown) (unknown) 1 tab PO BID 10 Days (uni ts (unknown) date) Qty: 20 0RF unknown) (unknown) (no (unknown) (unknown) 1. Persistent mild (units (unknown) date) bilateral unknown) hydroureteronephrosis with bilateral ureteral (unknown) (no (unknown) (unknown) 05/31/21 (units (unkno wn) date) unknown) (unknown) (no (unknown) (unknown) 07/03/2020, 22:25. (units (unknown) date) unknown) (unknown) (no (unknown) (unknown) 07/11/22 (units (unkno wn) date) unknown) (unknown) (no (unknown) (unknown) 07/13/22 (units (unkno wn) date) unknown) (unknown) (no (unknown) (unknown) 12 point review of (units (unknown) date) systems is negative unknown) except for those stated above (unknown) (no (unknown) (unknown) 07/23/22 07/23/22 (units (unknown) date) 07/23/22 Range/Units unknown) (unknown) (no (unknown) (unknown) 07/23/22 22:16 (units (unknown) date) unknown) (unknown) (no (unknown) (unknown) 07/23/22 Range/Units (uni ts (unknown) date) unknown) (unknown) (no (unknown) (unknown) 07/23/22 (units (unkno wn) date) unknown) (unknown) (no (unknown) (unknown) 07/25/22 1321 (units ( unknown) date) unknown) (unknown) (no (unknown) (unknown) [address] [place] [address] (units (unknown) date) unknown) (unknown) (no (unknown) (unknown) 2. New high density (unit s (unknown) date) filling defects within unknown ) right renal calices and pelvis (unknown) (no (unknown) (unknown) 22:13 07/24/22 (units (unknown) date) unknown) (unknown) (no (unknown) (unknown) 22:16 22:16 22:22 (units (unknown) date) unknown) (unknown) (no (unknown) (unknown) 23:30 (units (unkno wn) date) unknown) (unknown) (no (unknown) (unknown) 3. Persistent (units ( unknown) date) bilateral urothelial unknown) thickening in the ureters with periureteral (unknown) (no (unknown) (unknown) 300 mg PO BID (units ( unknown) date) unknown) (unknown) (no (unknown) (unknown) 4. 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 Concentric bladder (un its (unknown) date) wall thickening with unknown) associated fat stranding consistent (unknown) (no (unknown) (unknown) 50 mg PO BID (units (u nknown) date) unknown) (unknown) (no (unknown) (unknown) 6. Enlargement of the (un its (unknown) date) pancreatic head unknown) redemonstrated without a discrete mass or (unknown) (no (unknown) (unknown) ? (units (unkno wn) date) unknown) (unknown) (no (unknown) (unknown) ?[facility] (units ( unknown) date) [facility], CT, CT unknown) ABDOMEN PELVIS WITH CONTRAST, 01/11/2021, 13:06.? (unknown) (no (unknown) (unknown) ABDOMEN PELVIS WITH (unit s (unknown) date) CONTRAST, 06/26/2022, unknown) 16:13. (unknown) (no (unknown) (unknown) ABDOMEN: (units (unkno wn) date) unknown) (unknown) (no (unknown) (unknown) ALT (<50) IU/L (units (unknown) date) unknown) (unknown) (no (unknown) (unknown) ALT 15 (<50) IU/L (units (unknown) date) unknown) (unknown) (no (unknown) (unknown) AST (17-59) IU/L (units (unknown) date) unknown) (unknown) (no (unknown) (unknown) AST 13 L (17-59) IU/L (un its (unknown) date) unknown) (unknown) (no (unknown) (unknown) Abdomen/Pelvis CT (units (unknown) date) (Signed) unknown) (unknown) (no (unknown) (unknown) Abdominal Nodes:? No (unit s (unknown) date) retroperitoneal or unknown) mesenteric adenopathy by size criteria.? (unknown) (no (unknown) (unknown) Accession Number: (units (unknown) date) [id number] ?? unknown) (unknown) (no (unknown) (unknown) Acct:[id number] (units (unknown) date) unknown) (unknown) (no (unknown) (unknown) Acetaminophen (units ( unknown) date) (Acetaminophen 325 Mg unknown) Tablet) 650 mg PO Q4H PRN (unknown) (no (unknown) (unknown) Activity (units (unkno wn) date) Restrictions/Additional unknow n) Instructions: (unknown) (no (unknown) (unknown) Acute UTI (units (unkn own) date) unknown) (unknown) (no (unknown) (unknown) Adrenal Glands:? No (unit s (unknown) date) adrenal nodules.? ? unknown) (unknown) (no (unknown) (unknown) After the (units (unkn own) date) administration of IV unknown) contrast, axial sections were acquired from the (unknown) (no (unknown) (unknown) Age/Sex: 47 / M (units (unknown) date) unknown) (unknown) (no (unknown) (unknown) Albumin (3.5-5.0) g/dL (u nits (unknown) date) unknown) (unknown) (no (unknown) (unknown) Albumin 3.5 (3.5-5.0) (un its (unknown) date) g/dL unknown) (unknown) (no (unknown) (unknown) Albumin/Globulin Ratio (u nits (unknown) date) (1.0-2.8) unknown) (unknown) (no (unknown) (unknown) Albumin/Globulin Ratio (u nits (unknown) date) 1.1 (1.0-2.8) unknown) (unknown) (no (unknown) (unknown) Alkaline Phosphatase (uni ts (unknown) date) (38-126) U/L unknown) (unknown) (no (unknown) (unknown) Alkaline Phosphatase (uni ts (unknown) date) 84 (38-126) U/L unknown) (unknown) (no (unknown) (unknown) Allergies (units (unkn own) date) unknown) (unknown) (no (unknown) (unknown) Allergy/AdvReac Type (uni ts (unknown) date) Severity Reaction unknown) Status Date / Time (unknown) (no (unknown) (unknown) MEL[place] Deng [id number] (unit s (unknown) date) unknown) (unknown) (no (unknown) (unknown) Approved by: Hossein D. (u nits (unknown) date) Marcial Almanzar on unknown) 07/24/2022 at 1:18 ? (unknown) (no (unknown) (unknown) BACK: Nontender (units (unknown) date) without deformity or unknown) crepitance. No flank tenderness. (unknown) (no (unknown) (unknown) BUN (9-20) mg/dL (units (unknown) date) unknown) (unknown) (no (unknown) (unknown) BUN 16 (9-20) mg/dL (unit s (unknown) date) unknown) (unknown) (no (unknown) (unknown) BUN/Creatinine Ratio (uni ts (unknown) date) (6-) unknown) (unknown) (no (unknown) (unknown) BUN/Creatinine Ratio (uni ts (unknown) date) 17.6 (6-22) unknown) (unknown) (no (unknown) (unknown) Back pain (units (unkn own) date) unknown) (unknown) (no (unknown) (unknown) Baso # (Auto) (0-100) (un its (unknown) date) /uL unknown) (unknown) (no (unknown) (unknown) Baso # (Auto) 0 (units (unknown) date) (0-100) /uL unknown) (unknown) (no (unknown) (unknown) Baso % (Auto) (0-2) % (un its (unknown) date) unknown) (unknown) (no (unknown) (unknown) Baso % (Auto) 0.6 (units (unknown) date) (0-2) % unknown) (unknown) (no (unknown) (unknown) Biliary ducts:? No (units (unknown) date) biliary ductal unknown) dilatation.? ? (unknown) (no (unknown) (unknown) Bladder:? The urinary (un its (unknown) date) bladder is nondistended unknow n) with a Bowling catheter present. ? (unknown) (no (unknown) (unknown) Blood Pressure 144/96 (un its (unknown) date) H 07/23/22 22:13 unknown) (unknown) (no (unknown) (unknown) Blood Pressure 144/96 (un its (unknown) date) H 139/90 unknown) (unknown) (no (unknown) (unknown) Bones:? Visualized (units (unknown) date) osseous structures unknown) demonstrate no suspicious focal lesions. (unknown) (no (unknown) (unknown) CARDIOVASCULAR: Denies (u nits (unknown) date) chest pain, unknown) palpitations, orthopnea, edema, (unknown) (no (unknown) (unknown) CARDIOVASCULAR: (units (unknown) date) Regular rate and rhythm unknow n) without murmurs, gallops, or rubs. (unknown) (no (unknown) (unknown) COMPARISON:? [facility] (units (unknown) date) Outside Film, CT, CT unknown) ABDOMEN PELVIS WITHOUT CONTRAST, (unknown) (no (unknown) (unknown) CT Scan Report (units (unknown) date) unknown) (unknown) (no (unknown) (unknown) CT scan - (units (unkn own) date) abdomen/pelvis: unknown) (unknown) (no (unknown) (unknown) Calcium (8.4-10.2) (units (unknown) date) mg/dL unknown) (unknown) (no (unknown) (unknown) Calcium 8.5 (8.4-10.2) (u nits (unknown) date) mg/dL unknown) (unknown) (no (unknown) (unknown) Call,Zaid (units (unk nown) date) unknown) (unknown) (no (unknown) (unknown) Danica,Audra (units (unknown) date) unknown) (unknown) (no (unknown) (unknown) Carbon Dioxide (22-32) (u nits (unknown) date) mmol/L unknown) (unknown) (no (unknown) (unknown) Carbon Dioxide 29 (units (unknown) date) (22-32) mmol/L unknown) (unknown) (no (unknown) (unknown) Cervical Spine CT (units (unknown) date) (Signed) unknown) (unknown) (no (unknown) (unknown) Chest X-Ray (Signed) (uni ts (unknown) date) unknown) (unknown) (no (unknown) (unknown) Chief Complaint: (units (unknown) date) Abdominal Pain unknown) (unknown) (no (unknown) (unknown) Chloride (98-107) (units (unknown) date) mmol/L unknown) (unknown) (no (unknown) (unknown) Chloride 100 (98-107) (un its (unknown) date) mmol/L unknown) (unknown) (no (unknown) (unknown) Clinical Impression: (uni ts (unknown) date) unknown) (unknown) (no (unknown) (unknown) Close (units (unkno wn) date) unknown) (unknown) (no (unknown) (unknown) Course (units (unkno wn) date) unknown) (unknown) (no (unknown) (unknown) Creatinine (0.66-1.25) (u nits (unknown) date) mg/dL unknown) (unknown) (no (unknown) (unknown) Creatinine 0.91 (units (unknown) date) (0.66-1.25) mg/dL unknown) (unknown) (no (unknown) (unknown) : 1975 (units (unknown) date) Acct:[id number] unknown) (unknown) (no (unknown) (unknown) : 1975 (units (unknown) date) unknown) (unknown) (no (unknown) (unknown) Date of Service: (units (unknown) date) 07/23/22 unknown) (unknown) (no (unknown) (unknown) Departure (units (unkn own) date) unknown) (unknown) (no (unknown) (unknown) Dictated by: Hossein Valladares (u nits (unknown) date) Marcial Almanzar on unknown) 07/24/2022 at 0:56 ? ? (unknown) (no (unknown) (unknown) Discharge Plan (units (unknown) date) unknown) (unknown) (no (unknown) (unknown) Discontinued (units (u nknown) date) Medications unknown) (unknown) (no (unknown) (unknown) Documented By: AP (units (unknown) date) unknown) (unknown) (no (unknown) (unknown) ENT: Nose without (units (unknown) date) bleeding, purulent unknown) drainage. Throat without erythema, (unknown) (no (unknown) (unknown) ER Physician: (units ( unknown) date) Stephan Issa D.O. unknown) (unknown) (no (unknown) (unknown) EXTREMITIES: No edema (un its (unknown) date) or joint tenderness. unknown) (unknown) (no (unknown) (unknown) EYES: Pupils equal (units (unknown) date) round and reactive. unknown) Extraocular motions intact. No scleral (unknown) (no (unknown) (unknown) Echocardiogram (units (unknown) date) Ultrasound (Signed) unknown) (unknown) (no (unknown) (unknown) Electrolytes, kidney (uni ts (unknown) date) function and LFTs unknown) within normal limits. (unknown) (no (unknown) (unknown) Emergency Report (units (unknown) date) unknown) (unknown) (no (unknown) (unknown) Eos # (Auto) (0-450) (uni ts (unknown) date) /uL unknown) (unknown) (no (unknown) (unknown) Eos # (Auto) 400 (units (unknown) date) (0-450) /uL unknown) (unknown) (no (unknown) (unknown) Eos % (Auto) (2-4) % (uni ts (unknown) date) unknown) (unknown) (no (unknown) (unknown) Eos % (Auto) 4.5 H (units (unknown) date) (2-4) % unknown) (unknown) (no (unknown) (unknown) Estimated GFR > 60 (units (unknown) date) (>60) mL/min unknown) (unknown) (no (unknown) (unknown) Estimated GFR (>60) (unit s (unknown) date) mL/min unknown) (unknown) (no (unknown) (unknown) Exam Narrative: (units (unknown) date) unknown) (unknown) (no (unknown) (unknown) Exam (units (unkno wn) date) unknown) (unknown) (no (unknown) (unknown) FINDINGS:? (units (unk nown) date) unknown) (unknown) (no (unknown) (unknown) Family History (units (unknown) date) (Reviewed 07/23/22 @ unknown) 22:58 by Stephan Issa DO) (unknown) (no (unknown) (unknown) Father CVA (cerebral (uni ts (unknown) date) vascular accident) unknown) (unknown) (no (unknown) (unknown) Findings and discharge (u nits (unknown) date) diagnosis discussed unknown) with patient/family followed by (unknown) (no (unknown) (unknown) Functional paraparesis (u nits (unknown) date) unknown) (unknown) (no (unknown) (unknown) GASTROINTESTINAL: (units (unknown) date) Abdomen soft, tender to unknow n) palpation nondistended. (unknown) (no (unknown) (unknown) GASTROINTESTINAL: see (un its (unknown) date) HPI unknown) (unknown) (no (unknown) (unknown) GENERAL: Denies (units (unknown) date) chills, fatigue, unknown) malaise, fever, sweats. (unknown) (no (unknown) (unknown) GENERAL: [47] year old (u nits (unknown) date) patient appears stated unknown ) age. Well-developed patient, in (unknown) (no (unknown) (unknown) : Denies dysuria, (unit s (unknown) date) frequency, unknown) incontinence, hematuria, urinary retention. (unknown) (no (unknown) (unknown) Gallbladder:? Within (uni ts (unknown) date) normal limits without unknown) calcified gallstones.? ? (unknown) (no (unknown) (unknown) General (units (unkno wn) date) unknown) (unknown) (no (unknown) (unknown) Globulin (1.7-4.1) (units (unknown) date) g/dL unknown) (unknown) (no (unknown) (unknown) Globulin 3.2 (1.7-4.1) (u nits (unknown) date) g/dL unknown) (unknown) (no (unknown) (unknown) Glucose (70-100) mg/dL (u nits (unknown) date) unknown) (unknown) (no (unknown) (unknown) Glucose 94 (70-100) (unit s (unknown) date) mg/dL unknown) (unknown) (no (unknown) (unknown) Kwame,Marge (units ( unknown) date) unknown) (unknown) (no (unknown) (unknown) HEAD: Atraumatic. (units (unknown) date) Normocephalic. unknown) (unknown) (no (unknown) (unknown) HEENT: Denies sinus (unit s (unknown) date) pain, ear pain, sore unknown) throat, difficulty swallowing, (unknown) (no (unknown) (unknown) HPI - Abdominal Pain (uni ts (unknown) date) unknown) (unknown) (no (unknown) (unknown) HPI narrative: (units (unknown) date) unknown) (unknown) (no (unknown) (unknown) Hct (41-53) % (units ( unknown) date) unknown) (unknown) (no (unknown) (unknown) Hct 36.3 L (41-53) % (uni ts (unknown) date) unknown) (unknown) (no (unknown) (unknown) He states that he has (un its (unknown) date) had no fever or chills. unknow n) He has been nauseated but denies (unknown) (no (unknown) (unknown) Head CT (Signed) (units (unknown) date) unknown) (unknown) (no (unknown) (unknown) Heart:? Heart is (units (unknown) date) normal in size. unknown) (unknown) (no (unknown) (unknown) Hgb (13.5-17.5) g/dL (uni ts (unknown) date) unknown) (unknown) (no (unknown) (unknown) Hgb 12.0 L (13.5-17.5) (u nits (unknown) date) g/dL unknown) (unknown) (no (unknown) (unknown) History of Present (units (unknown) date) Illness unknown) (unknown) (no (unknown) (unknown) History of spinal (units (unknown) date) surgery unknown) (unknown) (no (unknown) (unknown) History of (units (unk nown) date) tonsillectomy unknown) (unknown) (no (unknown) (unknown) Home Medications (units (unknown) date) unknown) (unknown) (no (unknown) (unknown) Hospital, CT, CT (units (unknown) date) unknown) (unknown) (no (unknown) (unknown) Hydrocodone (units (un known) date) Bitart/Acetaminophen unknown) (Hydrocodone/Acet 5/325 Prepack) 1 bottle MISC (unknown) (no (unknown) (unknown) Hypertension (units (u nknown) date) unknown) (unknown) (no (unknown) (unknown) IMPRESSION:? (units (u nknown) date) unknown) (unknown) (no (unknown) (unknown) INDICATIONS:? severe (uni ts (unknown) date) LLQ pain unknown) (unknown) (no (unknown) (unknown) Image quality:? (units (unknown) date) Excellent.? unknown) (unknown) (no (unknown) (unknown) Imaging Data (units (u nknown) date) unknown) (unknown) (no (unknown) (unknown) Influenza A (RT-PCR) (uni ts (unknown) date) (NEGATIVE) unknown) (unknown) (no (unknown) (unknown) Influenza A (RT-PCR) (uni ts (unknown) date) Flu a negative unknown) (NEGATIVE) (unknown) (no (unknown) (unknown) Influenza B (RT-PCR) (uni ts (unknown) date) (NEGATIVE) unknown) (unknown) (no (unknown) (unknown) Influenza B (RT-PCR) (uni ts (unknown) date) Flu b negative unknown) (NEGATIVE) (unknown) (no (unknown) (unknown) Initial Vital Signs (unit s (unknown) date) unknown) (unknown) (no (unknown) (unknown) Initial Vital Signs: (uni ts (unknown) date) unknown) (unknown) (no (unknown) (unknown) Instructions: DI for (uni ts (unknown) date) Urinary Tract Infection unknow n) (UTI) (unknown) (no (unknown) (unknown) [facility] [address] (uni ts (unknown) date) [address] [place] [address], unknown ) [place] [address] (unknown) (no (unknown) (unknown) [facility] (units (unknown) date) unknown) (unknown) (no (unknown) (unknown) Gerry Mondragon (units (unknown) date) unknown) (unknown) (no (unknown) (unknown) Kidneys and Ureters:? (un its (unknown) date) Bilateral ureteral unknown) stents are redemonstrated with the (unknown) (no (unknown) (unknown) Knee X-Ray (Signed) (unit s (unknown) date) unknown) (unknown) (no (unknown) (unknown) Lab Data (units (unkno wn) date) unknown) (unknown) (no (unknown) (unknown) Lab Results (units (un known) date) unknown) (unknown) (no (unknown) (unknown) Label Comments: (units (unknown) date) unknown) (unknown) (no (unknown) (unknown) Labs: (units (unkno wn) date) unknown) (unknown) (no (unknown) (unknown) Last Admin: 07/24/22 (uni ts (unknown) date) 00:15 Dose: 1 each unknown) (unknown) (no (unknown) (unknown) Last Admin: 07/24/22 (uni ts (unknown) date) 00:15 Dose: 650 mg unknown) (unknown) (no (unknown) (unknown) Last Admin: 07/24/22 (uni ts (unknown) date) 03:20 Dose: 1 tab unknown) (unknown) (no (unknown) (unknown) Last Admin: 07/24/22 (uni ts (unknown) date) 03:23 Dose: 1 bottle unknown) (unknown) (no (unknown) (unknown) Launch?Image (units (u nknown) date) unknown) (unknown) (no (unknown) (unknown) Lidocaine (Lidocaine (uni ts (unknown) date) Patch 1 Each unknown) Adh..Patch) 1 each TOP NOW ONE (unknown) (no (unknown) (unknown) Lipase (23-300) U/L (unit s (unknown) date) unknown) (unknown) (no (unknown) (unknown) Lipase 47 (23-300) U/L (u nits (unknown) date) unknown) (unknown) (no (unknown) (unknown) Liver:? No mass (units (unknown) date) lesion. unknown) (unknown) (no (unknown) (unknown) Loc: ED (units (unkno wn) date) unknown) (unknown) (no (unknown) (unknown) Lumbar Spine CT (units (unknown) date) (Signed) unknown) (unknown) (no (unknown) (unknown) Lung bases:? There is (un its (unknown) date) mild dependent unknown) atelectasis.? ? (unknown) (no (unknown) (unknown) Lymph # (Auto) (units (unknown) date) ([phone]) /uL unknown) (unknown) (no (unknown) (unknown) Lymph # (Auto) 900 L (uni ts (unknown) date) ([phone]) /uL unknown) (unknown) (no (unknown) (unknown) Lymph % (Auto) (25-40) (u nits (unknown) date) % unknown) (unknown) (no (unknown) (unknown) Lymph % (Auto) 10.3 L (un its (unknown) date) (25-40) % unknown) (unknown) (no (unknown) (unknown) MCH (26-34) PG (units (unknown) date) unknown) (unknown) (no (unknown) (unknown) MCH 27.1 (26-34) PG (unit s (unknown) date) unknown) (unknown) (no (unknown) (unknown) MCHC (30-36) % (units (unknown) date) unknown) (unknown) (no (unknown) (unknown) MCHC 33.1 (30-36) % (unit s (unknown) date) unknown) (unknown) (no (unknown) (unknown) MCV (80-100) fL (units (unknown) date) unknown) (unknown) (no (unknown) (unknown) MCV 81.7 (80-100) fL (uni ts (unknown) date) unknown) (unknown) (no (unknown) (unknown) MDM - Abdominal Pain (uni ts (unknown) date) unknown) (unknown) (no (unknown) (unknown) MDM Narrative (units ( unknown) date) unknown) (unknown) (no (unknown) (unknown) MR#: [id number] (units (unknown) date) unknown) (unknown) (no (unknown) (unknown) MUSCULOSKELETAL: (units (unknown) date) denies weakness, joint unknown ) pain, or bony pain (unknown) (no (unknown) (unknown) Medical History (units (unknown) date) (Reviewed 07/23/22 @ unknown) 22:58 by Stephan Issa DO) (unknown) (no (unknown) (unknown) Medical decision (units (unknown) date) making narrative: unknown) (unknown) (no (unknown) (unknown) Medication (units (unk nown) date) Instructions Recorded unknown) Confirmed (unknown) (no (unknown) (unknown) Medication (units (unk nown) date) Instructions Recorded unknown) (unknown) (no (unknown) (unknown) Miscellaneous: No (units (unknown) date) inguinal hernias are unknown) seen. ? ? (unknown) (no (unknown) (unknown) Mode of arrival: EMS (uni ts (unknown) date) unknown) (unknown) (no (unknown) (unknown) [place] # (Auto) (0-900) (un its (unknown) date) /uL unknown) (unknown) (no (unknown) (unknown) [place] # (Auto) 900 (units (unknown) date) (0-900) /uL unknown) (unknown) (no (unknown) (unknown) [place] % (Auto) (3-14) % (u nits (unknown) date) unknown) (unknown) (no (unknown) (unknown) [place] % (Auto) 11.0 (units (unknown) date) (3-14) % unknown) (unknown) (no (unknown) (unknown) Mother Myocardial (units (unknown) date) infarct unknown) (unknown) (no (unknown) (unknown) Multiple etiologies (unit s (unknown) date) for patient's symptoms unknown ) considered including: [Bowel (unknown) (no (unknown) (unknown) NECK: Trachea midline. (u nits (unknown) date) Non tender unknown) (unknown) (no (unknown) (unknown) NEURO: AOx3. (units (u nknown) date) unknown) (unknown) (no (unknown) (unknown) NEUROLOGIC: Denies (units (unknown) date) weakness, headache, unknown) numbness, change in speech, confusion, (unknown) (no (unknown) (unknown) Narrative (units (unkn own) date) unknown) (unknown) (no (unknown) (unknown) Narrative: (units (unk nown) date) unknown) (unknown) (no (unknown) (unknown) Neurogenic pain (units (unknown) date) unknown) (unknown) (no (unknown) (unknown) Neut # (Auto) (units ( unknown) date) (0954-4099) /uL unknown) (unknown) (no (unknown) (unknown) Neut # (Auto) 6100 (units (unknown) date) (5315-6514) /uL unknown) (unknown) (no (unknown) (unknown) Neut % (Auto) (50-75) (un its (unknown) date) % unknown) (unknown) (no (unknown) (unknown) Neut % (Auto) 73.6 (units (unknown) date) (50-75) % unknown) (unknown) (no (unknown) (unknown) New (units (unkno wn) date) unknown) (unknown) (no (unknown) (unknown) No Action (units (unkn own) date) unknown) (unknown) (no (unknown) (unknown) ONE (units (unkno wn) date) unknown) (unknown) (no (unknown) (unknown) Ondansetron HCl (units (unknown) date) (Ondansetron 4 Mg Odt unknown) Prepack) 1 bottle MISC SEEINSTR ONE (unknown) (no (unknown) (unknown) Ondansetron HCl (units (unknown) date) (Ondansetron 4 Mg/2 Ml unknown ) Inj) 4 mg IV NOW PRN (unknown) (no (unknown) (unknown) Ordered: (units (unkno wn) date) unknown) (unknown) (no (unknown) (unknown) Ordering Provider: (units (unknown) date) Stephan Issa D.O. unknown) (unknown) (no (unknown) (unknown) Orders (units (unkno wn) date) unknown) (unknown) (no (unknown) (unknown) Oxygen Delivery Method (u nits (unknown) date) 07/23/22 22:13 unknown) (unknown) (no (unknown) (unknown) Oxygen Delivery Method (u nits (unknown) date) Room Air unknown) (unknown) (no (unknown) (unknown) PELVIS: (units (unkno wn) date) unknown) (unknown) (no (unknown) (unknown) PRN Reason: Fever/Mild (u nits (unknown) date) Pain (1-3) unknown) (unknown) (no (unknown) (unknown) PRN Reason: Nausea And (u nits (unknown) date) Vomiting unknown) (unknown) (no (unknown) (unknown) PROCEDURE:? CT ABDOMEN (u nits (unknown) date) PELVIS W CON unknown) (unknown) (no (unknown) (unknown) PSYCHIATRIC: No (units (unknown) date) concerning psychosocial unknow n) issues. (unknown) (no (unknown) (unknown) Pancreas:? There is (unit s (unknown) date) enlargement of the unknown) pancreatic head redemonstrated without a (unknown) (no (unknown) (unknown) Patient Disposition: (uni ts (unknown) date) Home unknown) (unknown) (no (unknown) (unknown) Patient History (units (unknown) date) unknown) (unknown) (no (unknown) (unknown) Patient shows no signs (u nits (unknown) date) of sepsis. Labs and unknown) imaging have been independently (unknown) (no (unknown) (unknown) Patient's symptoms (units (unknown) date) improved over duration unknown ) of stay with above-stated therapies. (unknown) (no (unknown) (unknown) Patient: Yann Bush Sr (u nits (unknown) date) W MR#: [id number] unknown) (unknown) (no (unknown) (unknown) Patient: Yann Bush Sr (u nits (unknown) date) W unknown) (unknown) (no (unknown) (unknown) Pelvic Nodes: No (units (unknown) date) enlarged lymph nodes.? unknown ) (unknown) (no (unknown) (unknown) Pelvic Organs:? (units (unknown) date) Unremarkable.? ? unknown) (unknown) (no (unknown) (unknown) Peritoneum:? No (units (unknown) date) abnormal unknown) intraperitoneal fluid.? No free air.? (unknown) (no (unknown) (unknown) Hossein Almanzar (units (un known) date) unknown) (unknown) (no (unknown) (unknown) Plt Count (150-400) (unit s (unknown) date) X103/uL unknown) (unknown) (no (unknown) (unknown) Plt Count 401 H (units (unknown) date) (150-400) X103/uL unknown) (unknown) (no (unknown) (unknown) Potassium (3.4-5.1) (unit s (unknown) date) mmol/L unknown) (unknown) (no (unknown) (unknown) Potassium 4.4 (units ( unknown) date) (3.4-5.1) mmol/L unknown) (unknown) (no (unknown) (unknown) Prescriptions: (units (unknown) date) unknown) (unknown) (no (unknown) (unknown) Previous Rx's (units ( unknown) date) unknown) (unknown) (no (unknown) (unknown) Procedure: CT abdomen (un its (unknown) date) pelvis w con unknown) (unknown) (no (unknown) (unknown) Pulse Oximetry 95 (units (unknown) date) 07/23/22 22:13 unknown) (unknown) (no (unknown) (unknown) Pulse Oximetry 95 95 (uni ts (unknown) date) unknown) (unknown) (no (unknown) (unknown) Pulse Rate 111 H 100 H (u nits (unknown) date) unknown) (unknown) (no (unknown) (unknown) Pulse Rate 111 H (units (unknown) date) 07/23/22 22:13 unknown) (unknown) (no (unknown) (unknown) RBC (4.5-5.9) X106/uL (un its (unknown) date) unknown) (unknown) (no (unknown) (unknown) RBC 4.45 L (4.5-5.9) (uni ts (unknown) date) X106/uL unknown) (unknown) (no (unknown) (unknown) RDW (11.6-14.8) % (units (unknown) date) unknown) (unknown) (no (unknown) (unknown) RDW 16.7 H (11.6-14.8) (u nits (unknown) date) % unknown) (unknown) (no (unknown) (unknown) RESPIRATORY: Clear to (uni ts (unknown) date) auscultation. Breath unknown) sounds equal bilaterally. No wheezes, (unknown) (no (unknown) (unknown) RESPIRATORY: Denies (unit s (unknown) date) dyspnea, cough, unknown) wheezing, hemoptysis, sputum. (unknown) (no (unknown) (unknown) RSV (PCR) (Negative) (uni ts (unknown) date) unknown) (unknown) (no (unknown) (unknown) RSV (PCR) Negative (units (unknown) date) (Negative) unknown) (unknown) (no (unknown) (unknown) Radiologist's (units ( unknown) date) Impression: unknown) (unknown) (no (unknown) (unknown) Referrals: (units (unk nown) date) unknown) (unknown) (no (unknown) (unknown) Related Data (units (u nknown) date) unknown) (unknown) (no (unknown) (unknown) Respiratory Rate 20 (unit s (unknown) date) 07/23/22 22:13 unknown) (unknown) (no (unknown) (unknown) Respiratory Rate 20 18 (u nits (unknown) date) unknown) (unknown) (no (unknown) (unknown) Result diagrams: (units (unknown) date) unknown) (unknown) (no (unknown) (unknown) Return precautions (units (unknown) date) discussed with unknown) patient/family whom verbalize understanding. (unknown) (no (unknown) (unknown) Review of Systems (units (unknown) date) unknown) (unknown) (no (unknown) (unknown) Rx Instructions: (units (unknown) date) unknown) (unknown) (no (unknown) (unknown) SARS-CoV-2 (PCR) (units (unknown) date) (Negative) unknown) (unknown) (no (unknown) (unknown) SARS-CoV-2 (PCR) (units (unknown) date) Positive H (Negative) unknown) (unknown) (no (unknown) (unknown) SEEINSTR ONE (units (u nknown) date) unknown) (unknown) (no (unknown) (unknown) SKIN: Denies rash, (units (unknown) date) skin lesions, or other unknown ) (unknown) (no (unknown) (unknown) SKIN: No rash or (units (unknown) date) erythema of visible unknown) areas (unknown) (no (unknown) (unknown) 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 unknown) (unknown) (no (unknown) (unknown) Signed By: (units (unk nown) date) unknown) (unknown) (no (unknown) (unknown) Signed (units (unkno wn) date) unknown) (unknown) (no (unknown) (unknown) [place] (units (unkno wn) date) unknown) (unknown) (no (unknown) (unknown) Smoking Status: Former (u nits (unknown) date) smoker unknown) (unknown) (no (unknown) (unknown) Social History (units (unknown) date) (Reviewed 07/23/22 @ unknown) 22:58 by Stephan Issa DO) (unknown) (no (unknown) (unknown) Sodium (137-145) (units (unknown) date) mmol/L unknown) (unknown) (no (unknown) (unknown) Sodium 139 (137-145) (uni ts (unknown) date) mmol/L unknown) (unknown) (no (unknown) (unknown) Source: patient (units (unknown) date) unknown) (unknown) (no (unknown) (unknown) Spleen:? Normal in (units (unknown) date) size.? ? unknown) (unknown) (no (unknown) (unknown) Stated Complaint: LLQ (un its (unknown) date) Abd pain unknown) (unknown) (no (unknown) (unknown) Nitesh Rahman (units (unknown) date) unknown) (unknown) (no (unknown) (unknown) Stomach and Bowel:? (unit s (unknown) date) Stomach, small bowel unknown) loops, and colon are normal in caliber (unknown) (no (unknown) (unknown) Stop: 07/24/22 00:11 (uni ts (unknown) date) unknown) (unknown) (no (unknown) (unknown) Stop: 07/24/22 03:12 (uni ts (unknown) date) unknown) (unknown) (no (unknown) (unknown) Stop: 07/24/22 03:13 (uni ts (unknown) date) unknown) (unknown) (no (unknown) (unknown) Substance Use Type: (unit s (unknown) date) does not use unknown) (unknown) (no (unknown) (unknown) Surgical History (units (unknown) date) (Reviewed 07/23/22 @ unknown) 22:58 by Stephan Issa DO) (unknown) (no (unknown) (unknown) TECHNIQUE:? (units (un known) date) unknown) (unknown) (no (unknown) (unknown) Take 1 capsule by (units (unknown) date) mouth twice a day for unknown) chronic back pain (unknown) (no (unknown) (unknown) Take 1 tablet by mouth (u nits (unknown) date) twice a day unknown) (unknown) (no (unknown) (unknown) Telemetry Strips (units (unknown) date) unknown) (unknown) (no (unknown) (unknown) Temperature 98.4 F (units (unknown) date) 07/23/22 22:13 unknown) (unknown) (no (unknown) (unknown) Temperature 98.4 F (units (unknown) date) unknown) (unknown) (no (unknown) (unknown) There is (units (unkno wn) date) unknown) (unknown) (no (unknown) (unknown) Thoracic Spine CT (units (unknown) date) (Signed) unknown) (unknown) (no (unknown) (unknown) Thoracic Spine MRI (units (unknown) date) (Signed) unknown) (unknown) (no (unknown) (unknown) Tibia/Fibula X-Ray (units (unknown) date) (Signed) unknown) (unknown) (no (unknown) (unknown) Time Seen by Provider: (u nits (unknown) date) 07/23/22 22:07 unknown) (unknown) (no (unknown) (unknown) Total Bilirubin (units (unknown) date) (0.2-1.3) mg/dL unknown) (unknown) (no (unknown) (unknown) Total Bilirubin 0.3 (unit s (unknown) date) (0.2-1.3) mg/dL unknown) (unknown) (no (unknown) (unknown) Total Protein (units ( unknown) date) (6.3-8.2) g/dL unknown) (unknown) (no (unknown) (unknown) Total Protein 6.7 (units (unknown) date) (6.3-8.2) g/dL unknown) (unknown) (no (unknown) (unknown) Trimethoprim/Sulfameth (u nits (unknown) date) oxazole (Trimeth/Sulfa unknown ) 160/800 (Ds) Tablet) 1 tab PO NOW (unknown) (no (unknown) (unknown) Ur Culture Indicated? (un its (unknown) date) Specimen cultured unknown) (unknown) (no (unknown) (unknown) Ur Culture Indicated? (un its (unknown) date) unknown) (unknown) (no (unknown) (unknown) Ur Leukocyte Esterase (un its (unknown) date) (NEGATIVE) unknown) (unknown) (no (unknown) (unknown) Ur Leukocyte Esterase (un its (unknown) date) 2+ H (NEGATIVE) unknown) (unknown) (no (unknown) (unknown) Ur Specific [place] (unit s (unknown) date) (1.000-1.035) unknown) (unknown) (no (unknown) (unknown) Ur Specific [place] (unit s (unknown) date) 1.010 (1.000-1.035) unknown) (unknown) (no (unknown) (unknown) Urine Appearance (units (unknown) date) Cloudy unknown) (unknown) (no (unknown) (unknown) Urine Appearance (units (unknown) date) unknown) (unknown) (no (unknown) (unknown) Urine Bacteria (None) (un its (unknown) date) unknown) (unknown) (no (unknown) (unknown) Urine Bacteria Many (unit s (unknown) date) (>30) H (None) unknown) (unknown) (no (unknown) (unknown) Urine Bilirubin (units (unknown) date) (NEGATIVE) unknown) (unknown) (no (unknown) (unknown) Urine Bilirubin (units (unknown) date) Negative (NEGATIVE) unknown) (unknown) (no (unknown) (unknown) Urine Color Yellow (units (unknown) date) unknown) (unknown) (no (unknown) (unknown) Urine Color (units (un known) date) unknown) (unknown) (no (unknown) (unknown) Urine Glucose (UA) (units (unknown) date) (Negative) g/dL unknown) (unknown) (no (unknown) (unknown) Urine Glucose (UA) (units (unknown) date) Trace H (Negative) g/dL unknow n) (unknown) (no (unknown) (unknown) Urine Ketones (units ( unknown) date) (NEGATIVE) unknown) (unknown) (no (unknown) (unknown) Urine Ketones Negative (u nits (unknown) date) (NEGATIVE) unknown) (unknown) (no (unknown) (unknown) Urine Nitrate (units ( unknown) date) (Negative) unknown) (unknown) (no (unknown) (unknown) Urine Nitrate Positive (u nits (unknown) date) H (Negative) unknown) (unknown) (no (unknown) (unknown) Urine Occult Blood (units (unknown) date) (Negative) unknown) (unknown) (no (unknown) (unknown) Urine Occult Blood 3+ (un its (unknown) date) H (Negative) unknown) (unknown) (no (unknown) (unknown) Urine Protein (units ( unknown) date) (Negative) unknown) (unknown) (no (unknown) (unknown) Urine Protein 1+ H (units (unknown) date) (Negative) unknown) (unknown) (no (unknown) (unknown) Urine RBC (0-5/HPF) (unit s (unknown) date) unknown) (unknown) (no (unknown) (unknown) Urine RBC 1-5/hpf (units (unknown) date) (0-5/HPF) unknown) (unknown) (no (unknown) (unknown) Urine Urobilinogen (units (unknown) date) (0.2) E.U./dL unknown) (unknown) (no (unknown) (unknown) Urine Urobilinogen 0.2 (u nits (unknown) date) (0.2) E.U./dL unknown) (unknown) (no (unknown) (unknown) Urine WBC >100/hpf H (uni ts (unknown) date) (0-5/HPF) unknown) (unknown) (no (unknown) (unknown) Urine WBC (0-5/HPF) (unit s (unknown) date) unknown) (unknown) (no (unknown) (unknown) Urine pH (4.5-8.0) (units (unknown) date) unknown) (unknown) (no (unknown) (unknown) Urine pH 7.0 (4.5-8.0) (u nits (unknown) date) unknown) (unknown) (no (unknown) (unknown) [facility], MR, (uni ts (unknown) date) MR ABDOMEN MR[facility], unknown) 06/27/2022, 10:39.? [place] (unknown) (no (unknown) (unknown) Ventral Wall: ? No (units (unknown) date) hernia.? unknown) (unknown) (no (unknown) (unknown) Vessels:? Aorta and (unit s (unknown) date) inferior vena cava are unknown ) normal in size.? (unknown) (no (unknown) (unknown) Visit Report Forms: (unit s (unknown) date) Patient Portal/API unknown) (unknown) (no (unknown) (unknown) Vital Signs - 8 hr (units (unknown) date) unknown) (unknown) (no (unknown) (unknown) Vital Signs (units (un known) date) unknown) (unknown) (no (unknown) (unknown) Vital signs: (units (u nknown) date) unknown) (unknown) (no (unknown) (unknown) WBC (4.5-11.0) X103/uL (u nits (unknown) date) unknown) (unknown) (no (unknown) (unknown) WBC 8.3 (4.5-11.0) (units (unknown) date) X103/uL unknown) (unknown) (no (unknown) (unknown) Danika García PA-C (uni ts (unknown) date) [Primary Care Provider] unknow n) (unknown) (no (unknown) (unknown) Reggie Enamorado (units (unkno wn) date) unknown) (unknown) (no (unknown) (unknown) [ ] New medication (units (unknown) date) written as a paper unknown) prescription (unknown) (no (unknown) (unknown) [ ] No new medications (u nits (unknown) date) given unknown) (unknown) (no (unknown) (unknown) [ x] New medication (unit s (unknown) date) prescriptions sent to unknown) your pharmacy: [[facility] ] (unknown) (no (unknown) (unknown) [Embedded Image Not (unit s (unknown) date) Available] unknown) (unknown) (no (unknown) (unknown) alcohol intake (units (unknown) date) frequency: unknown) holidays/special occasions only (unknown) (no (unknown) (unknown) alcohol intake: (units (unknown) date) current unknown) (unknown) (no (unknown) (unknown) and urine would (units (unknown) date) suggest a urine unknown) infection with some mild swelling in her (unknown) (no (unknown) (unknown) and wall (units (unkno wn) date) unknown) (unknown) (no (unknown) (unknown) and/or kV according to (u nits (unknown) date) patient size. unknown) (unknown) (no (unknown) (unknown) any vomiting. He (units (unknown) date) denies any changes unknown) bowel habits such as constipation or (unknown) (no (unknown) (unknown) appointment. Let them (uni ts (unknown) date) know you were seen in unknown) the Emergency Department and that we (unknown) (no (unknown) (unknown) ask that you be seen (uni ts (unknown) date) in follow up. We will unknown) electronically transmit a record of (unknown) (no (unknown) (unknown) bilateral (units (unkn own) date) hydroureteronephrosis unknown) with periureteral fat stranding and urothelial (unknown) (no (unknown) (unknown) blood product and (units (unknown) date) indicative of interval unknown ) hemorrhage. (unknown) (no (unknown) (unknown) coils in the renal (units (unknown) date) pelves and the distal unknown) coils in the bladder.? There is (unknown) (no (unknown) (unknown) concentric bladder (units (unknown) date) wall thickening with unknown) associated fat stranding.? (unknown) (no (unknown) (unknown) concern. His pain is (uni ts (unknown) date) in his lower anterior unknown) abdomen and is worse when he moves (unknown) (no (unknown) (unknown) concerning symptoms, (uni ts (unknown) date) such as [fever greater unknown ) than 101 F, shaking chills, (unknown) (no (unknown) (unknown) consistent with (units (unknown) date) unknown) (unknown) (no (unknown) (unknown) cystitis. (units (unkn own) date) unknown) (unknown) (no (unknown) (unknown) diarrhea. He does not (un its (unknown) date) think he is had any unknown) change in his urinary habits, but (unknown) (no (unknown) (unknown) discrete (units (unkno wn) date) unknown) (unknown) (no (unknown) (unknown) dizziness. (units (unk nown) date) unknown) (unknown) (no (unknown) (unknown) does have a history of (u nits (unknown) date) bowel obstruction and unknown) perforation which is his largest (unknown) (no (unknown) (unknown) dose reduction, the (unit s (unknown) date) following was used:? unknown) automated exposure control, adjustment (unknown) (no (unknown) (unknown) fat (units (unkno wn) date) unknown) (unknown) (no (unknown) (unknown) filling defects within (u nits (unknown) date) the calices and renal unknown) pelvis compatible with blood (unknown) (no (unknown) (unknown) gabapentin AdvReac (units (unknown) date) [place] Verified unknown) 10/16/21 09:17 (unknown) (no (unknown) (unknown) household members: (units (unknown) date) spouse, children, unknown) friend(s) and other (unknown) (no (unknown) (unknown) hyperdense (units (unk nown) date) unknown) (unknown) (no (unknown) (unknown) icterus. No injection (un its (unknown) date) or drainage. unknown) (unknown) (no (unknown) (unknown) is persistent (units (u nknown) date) heterogeneous unknown) enhancement of the kidneys redemonstrated suggestive (unknown) (no (unknown) (unknown) kidneys.] (units (unkn own) date) unknown) (unknown) (no (unknown) (unknown) leave on most painful (un its (unknown) date) area for 12 hrs unknown) (unknown) (no (unknown) (unknown) lidocaine 5 % topical (un its (unknown) date) patch 1 patch topical unknown) DAILY #15 ea 07/11/22 (unknown) (no (unknown) (unknown) lidocaine [Lidoderm] 5 (u nits (unknown) date) % adhesive unknown) patch,medicated (unknown) (no (unknown) (unknown) lung bases (units (unk nown) date) unknown) (unknown) (no (unknown) (unknown) mass identified.? No (uni ts (unknown) date) definite pancreatic unknown) duct dilatation.? Findings are similar (unknown) (no (unknown) (unknown) metoprolol tartrate 50 (u nits (unknown) date) mg tablet 50 mg PO BID unknown ) 10/15/21 10/15/21 (unknown) (no (unknown) (unknown) metoprolol tartrate 50 (u nits (unknown) date) mg tablet unknown) (unknown) (no (unknown) (unknown) mg-trimethoprim 160 mg (u nits (unknown) date) tablet unknown) (unknown) (no (unknown) (unknown) mild distress. (units (unknown) date) Obviously unknown) uncomfortable, holding an emesis bag (unknown) (no (unknown) (unknown) morphine Allergy (units (unknown) date) Nightmare Verified unknown) 10/16/21 09:17 (unknown) (no (unknown) (unknown) obstruction, (units (u nknown) date) perforation, unknown) constipation, urinary infection, pyelonephritis] (unknown) (no (unknown) (unknown) of mA (units (unkno wn) date) unknown) (unknown) (no (unknown) (unknown) of (units (unkno wn) date) unknown) (unknown) (no (unknown) (unknown) or with palpation and (un its (unknown) date) improves with rest. unknown) (unknown) (no (unknown) (unknown) pancreatic duct (units (unknown) date) dilatation.? Findings unknown) appear similar to the prior studies.? (unknown) (no (unknown) (unknown) persistent mild (units (unknown) date) unknown) (unknown) (no (unknown) (unknown) pregabalin 300 mg (units (unknown) date) capsule (Lyrica) 300 mg unknow n) PO BID 10/15/21 10/15/21 (unknown) (no (unknown) (unknown) pregabalin [Lyrica] (unit s (unknown) date) 300 mg capsule unknown) (unknown) (no (unknown) (unknown) prior studies. ? (units (unknown) date) unknown) (unknown) (no (unknown) (unknown) prior (units (unkno wn) date) unknown) (unknown) (no (unknown) (unknown) product.? There (units (unknown) date) unknown) (unknown) (no (unknown) (unknown) proximal (units (unkno wn) date) unknown) (unknown) (no (unknown) (unknown) pyelonephritis. (units (unknown) date) unknown) (unknown) (no (unknown) (unknown) radiation (units (unkn own) date) unknown) (unknown) (no (unknown) (unknown) rales, or rhonchi. (units (unknown) date) unknown) (unknown) (no (unknown) (unknown) redemonstrated. (units (unknown) date) unknown) (unknown) (no (unknown) (unknown) reviewed, no elevated (un its (unknown) date) white blood cell count, unknow n) left shift or signs of anemia. (unknown) (no (unknown) (unknown) seizures, (units (unkn own) date) incoordination. 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 He (unknown) (no (unknown) (unknown) stents (units (unkno wn) date) unknown) (unknown) (no (unknown) (unknown) stranding likely (units (unknown) date) reflecting a urinary unknown) tract infection.? (unknown) (no (unknown) (unknown) study, suggestive of (uni ts (unknown) date) resolving unknown) pyelonephritis. (unknown) (no (unknown) (unknown) sulfamethoxazole 800 1 (u nits (unknown) date) tab PO BID 10 days #20 unknown ) tabs 07/24/22 (unknown) (no (unknown) (unknown) sulfamethoxazole-trime (u nits (unknown) date) thoprim [Bactrim DS] unknown) 800-160 mg tablet (unknown) (no (unknown) (unknown) thickening.? Within (unit s (unknown) date) the right renal unknown) collecting system, there are slightly (unknown) (no (unknown) (unknown) thickness.? (units (un known) date) unknown) (unknown) (no (unknown) (unknown) to the pubic (units (u nknown) date) symphysis.? Coronal and unknow n) sagittal reformats were performed.? For (unknown) (no (unknown) (unknown) to the (units (unkno wn) date) unknown) (unknown) (no (unknown) (unknown) today's note if your (uni ts (unknown) date) PCP is in our system unknown) (unknown) (no (unknown) (unknown) tonsillar hypertrophy (un its (unknown) date) or exudate. Airway unknown) patent. (unknown) (no (unknown) (unknown) verbalization of (units (unknown) date) understanding unknown) (unknown) (no (unknown) (unknown) with a (units (unkno wn) date) unknown) (unknown) (no (unknown) (unknown) with this?presents by (un its (unknown) date) EMS for evaluation unknown) about 1 week of lower abdominal pain (unknown) (no (unknown) (unknown) with this?presents by (un its (unknown) date) EMS for evaluation unknown) about 1 week of lower abdominal pain. (unknown) (no (unknown) (unknown) worsening pain, (units (unknown) date) persistent vomiting or unknown ) other bothersome symptoms] Result panel 1084 (unknown) (no (unknown) (unknown) >100,000 cfu/ml (unkno wn) date) (unknown) (no (unknown) (unknown) >=4 (units (unkno wn) date) unknown) (unknown) (no (unknown) (unknown) >=8 (units (unkno wn) date) unknown) (unknown) (no (unknown) (unknown) <=0.5 (units (unkno wn) date) unknown) (unknown) (no (unknown) (unknown) <=1 (units (unkno wn) date) unknown) (unknown) (no (unknown) (unknown) <=10 (units (unkno wn) date) unknown) (unknown) (no (unknown) (unknown) <=16 (units (unkno wn) date) unknown) (unknown) (no (unknown) (unknown) 0.25 (units (unkno wn) date) unknown) (unknown) (no (unknown) (unknown) 1 (units (unkno wn) date) unknown) (unknown) (no (unknown) (unknown) 2 (units (unkno wn) date) unknown) (unknown) (no (unknown) (unknown) 4 (units (unkno wn) date) unknown) (unknown) (no (unknown) (unknown) 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 (units (unknown) date) unknown) (unknown) (no (unknown) (unknown) MRSAMethicillin (units (unknown) date) Resis Staph Aureus unknown) (unknown) (no (unknown) (unknown) No Further Workup (units (unknown) date) unknown) (unknown) (no (unknown) (unknown) YES (units (unkno wn) date) unknown) Result panel 1085 (unknown) (no (unknown) (unknown) (no value) (units (unk nown) date) unknown) (unknown) (no (unknown) (unknown) (Bactrim DS) (units (u nknown) date) unknown) (unknown) (no (unknown) (unknown) (Lidoderm) (units (unk nown) date) unknown) (unknown) (no (unknown) (unknown) [id number] (units (unkno wn) date) unknown) (unknown) (no (unknown) (unknown) 1 patch TOP DAILY (units (unknown) date) Qty: 15 0RF unknown) (unknown) (no (unknown) (unknown) 1 tab PO BID 10 (units (unknown) date) Days Qty: 20 0RF unknown) (unknown) (no (unknown) (unknown) 12/12/22 (units (unkno wn) date) unknown) (unknown) (no (unknown) (unknown) 18:19 (units (unkno wn) date) unknown) (unknown) (no (unknown) (unknown) 300 mg PO BID (units ( unknown) date) unknown) (unknown) (no (unknown) (unknown) 50 mg PO BID (units (u nknown) date) unknown) (unknown) (no (unknown) (unknown) Age/Sex: 47 / M (units (unknown) date) unknown) (unknown) (no (unknown) (unknown) Allergies (units (unkn own) date) unknown) (unknown) (no (unknown) (unknown) Allergy/AdvReac (units (unknown) date) Type Severity unknown) Reaction Status Date / Time (unknown) (no (unknown) (unknown) Back pain (units (unkn own) date) unknown) (unknown) (no (unknown) (unknown) Blood Pressure (units (unknown) date) 152/100 H 07/30/22 unknown) 18:19 (unknown) (no (unknown) (unknown) Blood Pressure (units (unknown) date) 152/100 H unknown) (unknown) (no (unknown) (unknown) Chief complaint: (units (unknown) date) Urogenital-Male unknown) (unknown) (no (unknown) (unknown) Course (units (unkno wn) date) unknown) (unknown) (no (unknown) (unknown) : 1975 (units (unknown) date) Acct:[id number] unknown) (unknown) (no (unknown) (unknown) Date of Service: (units (unknown) date) 07/30/22 unknown) (unknown) (no (unknown) (unknown) Departure (units (unkn own) date) unknown) (unknown) (no (unknown) (unknown) Discharge Plan (units (unknown) date) unknown) (unknown) (no (unknown) (unknown) Discontinued (units (u nknown) date) Medications unknown) (unknown) (no (unknown) (unknown) ER Physician: (units ( unknown) date) Za Harrell unknown) LUMBER TRIMMER (unknown) (no (unknown) (unknown) Emergency Report (units (unknown) date) unknown) (unknown) (no (unknown) (unknown) Exam (units (unkno wn) date) unknown) (unknown) (no (unknown) (unknown) Family History (units (unknown) date) (Reviewed 07/23/22 unknown) @ 22:58 by Stephan Issa DO) (unknown) (no (unknown) (unknown) Father CVA (units (unk nown) date) (cerebral vascular unknown) accident) (unknown) (no (unknown) (unknown) Functional (units (unk nown) date) paraparesis unknown) (unknown) (no (unknown) (unknown) General (units (unkno wn) date) unknown) (unknown) (no (unknown) (unknown) HPI - Male (units (unk nown) date) Genitourinary unknown) (unknown) (no (unknown) (unknown) History of spinal (units (unknown) date) surgery unknown) (unknown) (no (unknown) (unknown) History of (units (unk nown) date) tonsillectomy unknown) (unknown) (no (unknown) (unknown) Home Medications (units (unknown) date) unknown) (unknown) (no (unknown) (unknown) Hydromorphone HCl (units (unknown) date) (Hydromorphone 0.5 unknown) Mg Inj) 0.5 mg IV NOW ONE (unknown) (no (unknown) (unknown) Hypertension (units (u nknown) date) unknown) (unknown) (no (unknown) (unknown) Initial Vital (units ( unknown) date) Signs unknown) (unknown) (no (unknown) (unknown) Initial Vital (units ( unknown) date) Signs: unknown) (unknown) (no (unknown) (unknown) [facility] (units (unknown) date) [address] unknown) [place] [address] (unknown) (no (unknown) (unknown) Label Comments: (units (unknown) date) unknown) (unknown) (no (unknown) (unknown) Medical History (units (unknown) date) (Reviewed 07/23/22 unknown) @ 22:58 by Stephan Issa DO) (unknown) (no (unknown) (unknown) Medication (units (unk nown) date) Instructions unknown) Recorded Confirmed (unknown) (no (unknown) (unknown) Medication (units (unk nown) date) Instructions unknown) Recorded (unknown) (no (unknown) (unknown) Mode of arrival: (units (unknown) date) EMS unknown) (unknown) (no (unknown) (unknown) Mother Myocardial (units (unknown) date) infarct unknown) (unknown) (no (unknown) (unknown) Neurogenic pain (units (unknown) date) unknown) (unknown) (no (unknown) (unknown) No Action (units (unkn own) date) unknown) (unknown) (no (unknown) (unknown) ONE (units (unkno wn) date) unknown) (unknown) (no (unknown) (unknown) Ordered: (units (unkno wn) date) unknown) (unknown) (no (unknown) (unknown) Orders (units (unkno wn) date) unknown) (unknown) (no (unknown) (unknown) Oxygen Delivery (units (unknown) date) Method 07/30/22 unknown) 18:19 (unknown) (no (unknown) (unknown) Oxygen Delivery (units (unknown) date) Method Room Air unknown) (unknown) (no (unknown) (unknown) Patient History (units (unknown) date) unknown) (unknown) (no (unknown) (unknown) Patient: Eleazar (units ( unknown) date) SrYann Bonita MR#: [id number] unknown) (unknown) (no (unknown) (unknown) Prescriptions: (units (unknown) date) unknown) (unknown) (no (unknown) (unknown) Previous Rx's (units ( unknown) date) unknown) (unknown) (no (unknown) (unknown) Pulse Oximetry 95 (units (unknown) date) 07/30/22 18:19 unknown) (unknown) (no (unknown) (unknown) Pulse Oximetry 95 (units (unknown) date) unknown) (unknown) (no (unknown) (unknown) Pulse Rate 106 H (units (unknown) date) 07/30/22 18:19 unknown) (unknown) (no (unknown) (unknown) Pulse Rate 106 H (units (unknown) date) unknown) (unknown) (no (unknown) (unknown) Referrals: (units (unk nown) date) unknown) (unknown) (no (unknown) (unknown) Related Data (units (u nknown) date) unknown) (unknown) (no (unknown) (unknown) Respiratory Rate (units (unknown) date) 24 07/30/22 18:19 unknown) (unknown) (no (unknown) (unknown) Respiratory Rate (units (unknown) date) 24 unknown) (unknown) (no (unknown) (unknown) Rx Instructions: (units (unknown) date) unknown) (unknown) (no (unknown) (unknown) 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 unknown) (unknown) (no (unknown) (unknown) Signed By: (units (unk nown) date) unknown) (unknown) (no (unknown) (unknown) Smoking Status: (units (unknown) date) Former smoker unknown) (unknown) (no (unknown) (unknown) Social History (units (unknown) date) (Reviewed 07/23/22 unknown) @ 22:58 by Stephan Issa DO) (unknown) (no (unknown) (unknown) Source: patient (units (unknown) date) and EMS unknown) (unknown) (no (unknown) (unknown) Stated complaint: (units (unknown) date) UTI unknown) (unknown) (no (unknown) (unknown) Stop: 07/30/22 (units (unknown) date) 18:31 unknown) (unknown) (no (unknown) (unknown) Substance Use (units ( unknown) date) Type: does not use unknown) (unknown) (no (unknown) (unknown) Surgical History (units (unknown) date) (Reviewed 07/23/22 unknown) @ 22:58 by Stephan Issa DO) (unknown) (no (unknown) (unknown) Take 1 capsule by (units (unknown) date) mouth twice a day unknown) for chronic back pain (unknown) (no (unknown) (unknown) Take 1 tablet by (units (unknown) date) mouth twice a day unknown) (unknown) (no (unknown) (unknown) Temperature 98.1 F (units (unknown) date) 07/30/22 18:19 unknown) (unknown) (no (unknown) (unknown) Temperature 98.1 F (units (unknown) date) unknown) (unknown) (no (unknown) (unknown) Time Seen by (units (u nknown) date) Provider: 07/30/22 unknown) 18:24 (unknown) (no (unknown) (unknown) Trimethoprim/Sulfa (units (unknown) date) methoxazole unknown) (Trimeth/Sulfa 160/800 (Ds) Tablet) 1 tab PO NOW (unknown) (no (unknown) (unknown) Vital Signs - 8 hr (units (unknown) date) unknown) (unknown) (no (unknown) (unknown) Vital Signs (units (un known) date) unknown) (unknown) (no (unknown) (unknown) Vital signs: (units (u nknown) date) unknown) (unknown) (no (unknown) (unknown) Danika García, (units (unknown) date) [facility] [Primary Care unknown) Provider] (unknown) (no (unknown) (unknown) alcohol intake (units (unknown) date) frequency: unknown) holidays/special occasions only (unknown) (no (unknown) (unknown) alcohol intake: (units (unknown) date) current unknown) (unknown) (no (unknown) (unknown) gabapentin AdvReac (units (unknown) date) [place] Verified unknown) 10/16/21 09:17 (unknown) (no (unknown) (unknown) household members: (units (unknown) date) spouse, children, unknown) friend(s) and other (unknown) (no (unknown) (unknown) leave on most (units ( unknown) date) painful area for 12 unknown) hrs (unknown) (no (unknown) (unknown) lidocaine 5 % (units ( unknown) date) topical patch 1 unknown) patch topical DAILY #15 ea 07/11/22 (unknown) (no (unknown) (unknown) lidocaine (units (unkn own) date) [Lidoderm] 5 % unknown) adhesive patch,medicated (unknown) (no (unknown) (unknown) metoprolol (units (unk nown) date) tartrate 50 mg unknown) tablet 50 mg PO BID 10/15/21 10/15/21 (unknown) (no (unknown) (unknown) metoprolol (units (unk nown) date) tartrate 50 mg unknown) tablet (unknown) (no (unknown) (unknown) mg-trimethoprim (units (unknown) date) 160 mg tablet unknown) (unknown) (no (unknown) (unknown) morphine Allergy (units (unknown) date) Nightmare Verified unknown) 10/16/21 09:17 (unknown) (no (unknown) (unknown) pregabalin 300 mg (units (unknown) date) capsule (Lyrica) unknown) 300 mg PO BID 10/15/21 10/15/21 (unknown) (no (unknown) (unknown) pregabalin (units (unk nown) date) [Lyrica] 300 mg unknown) capsule (unknown) (no (unknown) (unknown) sulfamethoxazole (units (unknown) date) 800 1 tab PO BID 10 unknown) days #20 tabs 07/24/22 (unknown) (no (unknown) (unknown) sulfamethoxazole-t (units (unknown) date) rimethoprim unknown) [Bactrim DS] 800-160 mg tablet Result panel 1086 (unknown) (no (unknown) (unknown) (no value) (units (unk nown) date) unknown) (unknown) (no (unknown) (unknown) #: [id number] (units (un known) date) unknown) (unknown) (no (unknown) (unknown) (Bactrim DS) (units (u nknown) date) unknown) (unknown) (no (unknown) (unknown) (Lidoderm) (units (unk nown) date) unknown) (unknown) (no (unknown) (unknown) (Pyridium) tabs (units (unknown) date) unknown) (unknown) (no (unknown) (unknown) * Ciprofloxacin (units (unknown) date) >=8 R unknown) (unknown) (no (unknown) (unknown) * Daptomycin 0.25 (units (unknown) date) S unknown) (unknown) (no (unknown) (unknown) * Doxycycline (units ( unknown) date) <=0.5 S unknown) (unknown) (no (unknown) (unknown) * Gentamicin <=0.5 (units (unknown) date) S unknown) (unknown) (no (unknown) (unknown) * Levofloxacin 4 I (units (unknown) date) unknown) (unknown) (no (unknown) (unknown) * Linezolid 2 S (units (unknown) date) unknown) (unknown) (no (unknown) (unknown) * Moxifloxacin 1 S (units (unknown) date) unknown) (unknown) (no (unknown) (unknown) * Nitrofurantoin (units (unknown) date) <=16 S unknown) (unknown) (no (unknown) (unknown) * Oxacillin Jacob (units (unknown) date) >=4 R unknown) (unknown) (no (unknown) (unknown) * Rifampin <=0.5 S (units (unknown) date) unknown) (unknown) (no (unknown) (unknown) * Tetracycline <=1 (units (unknown) date) S unknown) (unknown) (no (unknown) (unknown) * (units (unkno wn) date) Trimethoprim/Sulfam unknown) ethoxazole <=10 S (unknown) (no (unknown) (unknown) * Vancomycin 1 S (units (unknown) date) unknown) (unknown) (no (unknown) (unknown) *If you do not (units (unknown) date) have a primary care unknown) provider please contact the [facility] (unknown) (no (unknown) (unknown) *Please continue (units (unknown) date) to take your unknown) regular medications as directed. (unknown) (no (unknown) (unknown) *Please follow up (units (unknown) date) with your primary unknown) care provider in 2-3 days, call for an (unknown) (no (unknown) (unknown) *Return to (units (unk nown) date) Emergency unknown) Department if you should have any new, worsening or (unknown) (no (unknown) (unknown) *What to do: (units (u nknown) date) unknown) (unknown) (no (unknown) (unknown) *You have been (units (unknown) date) diagnosed with unknown) worsening bladder infection, you are positive for (unknown) (no (unknown) (unknown) --------- (units (unkn own) date) unknown) (unknown) (no (unknown) (unknown) [id number] (units (unkno wn) date) unknown) (unknown) (no (unknown) (unknown) [id number] (units (unkno wn) date) unknown) (unknown) (no (unknown) (unknown) 1 applic topical (units (unknown) date) BID Qty: 99 0RF unknown) (unknown) (no (unknown) (unknown) 1 patch TOP DAILY (units (unknown) date) Qty: 15 0RF unknown) (unknown) (no (unknown) (unknown) 1 tab PO BID 10 (units (unknown) date) Days Qty: 20 0RF unknown) (unknown) (no (unknown) (unknown) 1 tab PO Q12H 10 (units (unknown) date) Days Qty: 20 0RF unknown) (unknown) (no (unknown) (unknown) 1 tab PO Q8H PRN (units (unknown) date) (Reason: pain) Qty: unknown) 14 0RF (unknown) (no (unknown) (unknown) 1. Methicillin (units (unknown) date) Resis Staph Aureus unknown) (unknown) (no (unknown) (unknown) 10 mg PO Q8H PRN (units (unknown) date) (Reason: pain) Qty: unknown) 14 0RF (unknown) (no (unknown) (unknown) 100 mg PO Q8H PRN (units (unknown) date) (Reason: bladder unknown) pain) Qty: 10 0RF (unknown) (no (unknown) (unknown) 07/30/22 18:48 (units (unknown) date) unknown) (unknown) (no (unknown) (unknown) 07/30/22 (units (unkno wn) date) unknown) (unknown) (no (unknown) (unknown) [address] [place] [address], (units (unknown) date) [facility], [address] unknown) (unknown) (no (unknown) (unknown) 18:19 (units (unkno wn) date) unknown) (unknown) (no (unknown) (unknown) 300 mg PO BID (units ( unknown) date) unknown) (unknown) (no (unknown) (unknown) 50 mg PO BID (units (u nknown) date) unknown) (unknown) (no (unknown) (unknown) (units (unknown) date) Unit#: [id number] unknown) : 1975Location: ED (unknown) (no (unknown) (unknown) Action to follow (units (unknown) date) No Further Workup unknown) (unknown) (no (unknown) (unknown) Activity (units (unkno wn) date) Restrictions/Additi unknown) onal Instructions: (unknown) (no (unknown) (unknown) Acute cystitis (units (unknown) date) unknown) (unknown) (no (unknown) (unknown) Age/Sex: 47 / M (units (unknown) date) unknown) (unknown) (no (unknown) (unknown) Allergies (units (unkn own) date) unknown) (unknown) (no (unknown) (unknown) Allergy/AdvReac (units (unknown) date) Type Severity unknown) Reaction Status Date / Time (unknown) (no (unknown) (unknown) Back pain (units (unkn own) date) unknown) (unknown) (no (unknown) (unknown) Bactrim which (units ( unknown) date) patient was unknown) prescribed but did not sweet pickle maker due to wrong pharmacy (unknown) (no (unknown) (unknown) Blood Pressure (units (unknown) date) 152/100 H 07/30/22 unknown) 18:19 (unknown) (no (unknown) (unknown) Blood Pressure (units (unknown) date) 152/100 H unknown) (unknown) (no (unknown) (unknown) C (units (unkno wn) date) unknown) (unknown) (no (unknown) (unknown) COVID, MRSA, and (units (unknown) date) your urine unknown) infection appears to have gotten worse. Please (unknown) (no (unknown) (unknown) Called To: (units (unk nown) date) NANDINI MENDES RN unknown) (unknown) (no (unknown) (unknown) Cardiovascular: (units (unknown) date) Tachycardic rate unknown) and regular rhythm, no peripheral edema, warm (unknown) (no (unknown) (unknown) Chief complaint: (units (unknown) date) Urogenital-Male unknown) (unknown) (no (unknown) (unknown) Clinical (units (unkno wn) date) Impression: unknown) (unknown) (no (unknown) (unknown) [place] Count (units (u nknown) date) >100,000 CFU/ml unknown) (unknown) (no (unknown) (unknown) [place] [facility] [place] (units (unknown) date) Enzyme Chemist unknown) Stat (unknown) (no (unknown) (unknown) Course (units (unkno wn) date) unknown) (unknown) (no (unknown) (unknown) Stephan Issa D.O. (units (unknown) date) unknown) (unknown) (no (unknown) (unknown) : 1975 (units (unknown) date) Acct:[id number] unknown) (unknown) (no (unknown) (unknown) Date of Service: (units (unknown) date) 07/30/22 unknown) (unknown) (no (unknown) (unknown) Departure (units (unkn own) date) unknown) (unknown) (no (unknown) (unknown) Discharge Plan (units (unknown) date) unknown) (unknown) (no (unknown) (unknown) Discontinued (units (u nknown) date) Medications unknown) (unknown) (no (unknown) (unknown) ED Orders (units (unkn own) date) unknown) (unknown) (no (unknown) (unknown) ER Physician: (units ( unknown) date) Za Harrell unknown) GENIE (unknown) (no (unknown) (unknown) Emergency Report (units (unknown) date) unknown) (unknown) (no (unknown) (unknown) Exam Narrative: (units (unknown) date) unknown) (unknown) (no (unknown) (unknown) Exam (units (unkno wn) date) unknown) (unknown) (no (unknown) (unknown) FAX TO: (units (unkno wn) date) unknown) (unknown) (no (unknown) (unknown) Family History (units (unknown) date) (Reviewed 07/30/22 unknown) @ 19:09 by GENIE Da Silva) (unknown) (no (unknown) (unknown) Father CVA (units (unk nown) date) (cerebral vascular unknown) accident) (unknown) (no (unknown) (unknown) Functional (units (unk nown) date) paraparesis unknown) (unknown) (no (unknown) (unknown) GI: abdomen soft, (units (unknown) date) nontender to unknown) palpation, nondistended, without masses, rebound (unknown) (no (unknown) (unknown) : Catheter (units (u nknown) date) draining purulence unknown) drainage, this was irrigated by bedside nurse, (unknown) (no (unknown) (unknown) General (units (unkno wn) date) unknown) (unknown) (no (unknown) (unknown) General: (units (unkno wn) date) cooperative, unknown) appears uncomfortable, complains of pain, in no acute (unknown) (no (unknown) (unknown) HEENT: symmetrical (units (unknown) date) facial expressions, unknown) moist mucous membranes (unknown) (no (unknown) (unknown) HPI - Male (units (unk nown) date) Genitourinary unknown) (unknown) (no (unknown) (unknown) HPI Narrative: (units (unknown) date) unknown) (unknown) (no (unknown) (unknown) Hematuria (units (unkn own) date) presence: with unknown) hematuria Qualified Code(s): N30.01 - Acute cystitis (unknown) (no (unknown) (unknown) History of Present (units (unknown) date) Illness unknown) (unknown) (no (unknown) (unknown) History of spinal (units (unknown) date) surgery unknown) (unknown) (no (unknown) (unknown) History of (units (unk nown) date) tonsillectomy unknown) (unknown) (no (unknown) (unknown) Home Medications (units (unknown) date) unknown) (unknown) (no (unknown) (unknown) Hydromorphone HCl (units (unknown) date) (Hydromorphone 0.5 unknown) Mg Inj) 0.5 mg IV NOW ONE (unknown) (no (unknown) (unknown) Hypertension (units (u nknown) date) unknown) (unknown) (no (unknown) (unknown) Initial Vital (units ( unknown) date) Signs unknown) (unknown) (no (unknown) (unknown) Initial Vital (units ( unknown) date) Signs: unknown) (unknown) (no (unknown) (unknown) Instructions: DI (units (unknown) date) for Urinary Tract unknown) Infection (UTI) (unknown) (no (unknown) (unknown) [facility] (units (unknown) date) [address] unknown) [place] [address] (unknown) (no (unknown) (unknown) [facility] (units (unknown) date) Laboratory CLIA ID unknown) [id number] (unknown) (no (unknown) (unknown) Ketorolac (units (unkn own) date) Tromethamine unknown) (Ketorolac 30 Mg/Ml Vial) 15 mg IV NOW ONE (unknown) (no (unknown) (unknown) Label Comments: (units (unknown) date) unknown) (unknown) (no (unknown) (unknown) Last Admin: (units (un known) date) 07/30/22 18:44 unknown) Dose: 0.5 mg (unknown) (no (unknown) (unknown) Last Admin: (units (un known) date) 07/30/22 18:44 unknown) Dose: 1 tab (unknown) (no (unknown) (unknown) Last Admin: (units (un known) date) 07/30/22 18:44 unknown) Dose: 100 mg (unknown) (no (unknown) (unknown) Last Admin: (units (un known) date) 07/30/22 18:44 unknown) Dose: 15 mg (unknown) (no (unknown) (unknown) M.I.C. RX (units (unkn own) date) unknown) (unknown) (no (unknown) (unknown) MDM - Male (units (unk nown) date) Genitourinary unknown) (unknown) (no (unknown) (unknown) MDM Narrative (units ( unknown) date) unknown) (unknown) (no (unknown) (unknown) MRSA (methicillin (units (unknown) date) resistant staph unknown) aureus) culture positive, COVID-19 (unknown) (no (unknown) (unknown) MRSA? YES (units (unkn own) date) unknown) (unknown) (no (unknown) (unknown) MSK: moves upper (units (unknown) date) extremities without unknown) deficit, neurovascularly intact, no new (unknown) (no (unknown) (unknown) Medical History (units (unknown) date) (Reviewed 07/30/22 unknown) @ 19:09 by GENIE Da Silva) (unknown) (no (unknown) (unknown) Medical decision (units (unknown) date) making narrative: unknown) (unknown) (no (unknown) (unknown) Medication (units (unk nown) date) Instructions unknown) Recorded Confirmed (unknown) (no (unknown) (unknown) Medication (units (unk nown) date) Instructions unknown) Recorded (unknown) (no (unknown) (unknown) Mode of arrival: (units (unknown) date) EMS unknown) (unknown) (no (unknown) (unknown) Mother Myocardial (units (unknown) date) infarct unknown) (unknown) (no (unknown) (unknown) Name: Eleazar (units (unk nown) date) Yann Jones Age/Sex: unknown) 47/M Attend Dr: (unknown) (no (unknown) (unknown) Narrative (units (unkn own) date) unknown) (unknown) (no (unknown) (unknown) Neuro: normal (units ( unknown) date) speech and unknown) cognition, A+O x3, ambulatory, clear speech (unknown) (no (unknown) (unknown) Neurogenic pain (units (unknown) date) unknown) (unknown) (no (unknown) (unknown) New (units (unkno wn) date) unknown) (unknown) (no (unknown) (unknown) No Action (units (unkn own) date) unknown) (unknown) (no (unknown) (unknown) ONE (units (unkno wn) date) unknown) (unknown) (no (unknown) (unknown) ORDERED: URINE (units (unknown) date) CULTURE unknown) (unknown) (no (unknown) (unknown) [place]] (units (un known) date) unknown) (unknown) (no (unknown) (unknown) Ordered: (units (unkno wn) date) unknown) (unknown) (no (unknown) (unknown) Orders (units (unkno wn) date) unknown) (unknown) (no (unknown) (unknown) Organism 1 (units (unk nown) date) Methicillin Resis unknown) Staph Aureus (unknown) (no (unknown) (unknown) Oxygen Delivery (units (unknown) date) Method 07/30/22 unknown) 18:19 (unknown) (no (unknown) (unknown) Oxygen Delivery (units (unknown) date) Method Room Air unknown) (unknown) (no (unknown) (unknown) PAGE 1 (units (unkno wn) date) unknown) (unknown) (no (unknown) (unknown) Patient (units (unkno wn) date) Disposition: Home unknown) (unknown) (no (unknown) (unknown) Patient History (units (unknown) date) unknown) (unknown) (no (unknown) (unknown) Patient: Eleazar (units ( unknown) date) Yann Jones MR#: [id number] unknown) (unknown) (no (unknown) (unknown) Phenazopyridine (units (unknown) date) HCl unknown) (Phenazopyridine 100 Mg Tablet) 100 mg PO NOW ONE (unknown) (no (unknown) (unknown) Please follow-up (units (unknown) date) with your primary unknown) care provider for a test of cure, please have (unknown) (no (unknown) (unknown) Prescriptions: (units (unknown) date) unknown) (unknown) (no (unknown) (unknown) Previous Rx's (units ( unknown) date) unknown) (unknown) (no (unknown) (unknown) Procedure Result (units (unknown) date) Verified unknown) (unknown) (no (unknown) (unknown) Psych: mental (units ( unknown) date) status is grossly unknown) normal, congruent mood, normal affect, pleasant (unknown) (no (unknown) (unknown) Pulse Oximetry 95 (units (unknown) date) 07/30/22 18:19 unknown) (unknown) (no (unknown) (unknown) Pulse Oximetry 95 (units (unknown) date) unknown) (unknown) (no (unknown) (unknown) Pulse Rate 106 H (units (unknown) date) 07/30/22 18:19 unknown) (unknown) (no (unknown) (unknown) Pulse Rate 106 H (units (unknown) date) unknown) (unknown) (no (unknown) (unknown) Pyridium, given (units (unknown) date) hydromorphone for unknown) his pain and symptoms. (unknown) (no (unknown) (unknown) Qualifiers: (units (un known) date) unknown) (unknown) (no (unknown) (unknown) ROS Unobtainable: (units (unknown) date) All systems unknown) reviewed + are unremarkable except as noted in HPI (unknown) (no (unknown) (unknown) RUN DATE: 07/30/22 (units (unknown) date) Specimen Inquiry unknown) (unknown) (no (unknown) (unknown) RUN TIME: 1907 (units (unknown) date) unknown) (unknown) (no (unknown) (unknown) Referrals: (units (unk nown) date) unknown) (unknown) (no (unknown) (unknown) Re07/23/22 (units ( unknown) date) Disch: Status: DEP unknown) ER (unknown) (no (unknown) (unknown) Related Data (units (u nknown) date) unknown) (unknown) (no (unknown) (unknown) Resource line at (units (unknown) date) [phone]. They unknown) will ask some questions about your medical (unknown) (no (unknown) (unknown) Respiratory Rate (units (unknown) date) 24 07/30/22 18:19 unknown) (unknown) (no (unknown) (unknown) Respiratory Rate (units (unknown) date) 24 unknown) (unknown) (no (unknown) (unknown) Respiratory: (units (u nknown) date) normal effort, able unknown) to speak in complete sentences, without (unknown) (no (unknown) (unknown) Review of Systems (units (unknown) date) unknown) (unknown) (no (unknown) (unknown) Reviewed vitals (units (unknown) date) signsand nursing unknown) notes. (unknown) (no (unknown) (unknown) Rx Instructions: (units (unknown) date) unknown) (unknown) (no (unknown) (unknown) SOURCE: UA Reflex (units (unknown) date) ENTR: 07/24/22-0325 unknown) OTHR DR: Danika García (unknown) (no (unknown) (unknown) SPDESC: RECD: (units ( unknown) date) 07/23/22-2340 SUBM unknown) DR: Tian Hebert D.O. 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 unknown) (unknown) (no (unknown) (unknown) Signed By: (units (unk nown) date) unknown) (unknown) (no (unknown) (unknown) Site (units (unkno wn) date) unknown) (unknown) (no (unknown) (unknown) Skin: brisk (units (un known) date) capillary refill, unknown) without pallor or open wounds (unknown) (no (unknown) (unknown) Smoking Status: (units (unknown) date) Former smoker unknown) (unknown) (no (unknown) (unknown) Social History (units (unknown) date) (Reviewed 07/30/22 unknown) @ 19:09 by GENIE Da Silva) (unknown) (no (unknown) (unknown) Source: patient (units (unknown) date) and EMS unknown) (unknown) (no (unknown) (unknown) Stated complaint: (units (unknown) date) UTI unknown) (unknown) (no (unknown) (unknown) Stop: 07/30/22 (units (unknown) date) 18:31 unknown) (unknown) (no (unknown) (unknown) Stop: 07/30/22 (units (unknown) date) 18:33 unknown) (unknown) (no (unknown) (unknown) Substance Use (units ( unknown) date) Type: does not use unknown) (unknown) (no (unknown) (unknown) Surgical History (units (unknown) date) (Reviewed 07/30/22 unknown) @ 19:09 by GENIE Da Silva) (unknown) (no (unknown) (unknown) Take 1 capsule by (units (unknown) date) mouth twice a day unknown) for chronic back pain (unknown) (no (unknown) (unknown) Take 1 tablet by (units (unknown) date) mouth twice a day unknown) (unknown) (no (unknown) (unknown) Temperature 98.1 F (units (unknown) date) 07/30/22 18:19 unknown) (unknown) (no (unknown) (unknown) Temperature 98.1 F (units (unknown) date) unknown) (unknown) (no (unknown) (unknown) This is a (units (unkn own) date) 47-year-old male unknown) who is brought in for evaluation by EMS of his (unknown) (no (unknown) (unknown) This is a (units (unkn own) date) 47-year-old male unknown) who returns to the emergency department after he was (unknown) (no (unknown) (unknown) Time Seen by (units (u nknown) date) Provider: 07/30/22 unknown) 18:24 (unknown) (no (unknown) (unknown) Trimethoprim/Sulfa (units (unknown) date) methoxazole unknown) (Trimeth/Sulfa 160/800 (Ds) Tablet) 1 tab PO NOW (unknown) (no (unknown) (unknown) Urine Culture (units ( unknown) date) Final 07/26/22 unknown) (unknown) (no (unknown) (unknown) Vicodin and (units (un known) date) oxycodone. States unknown) that he has been p.o. tolerant, denies any (unknown) (no (unknown) (unknown) Vital Signs - 8 hr (units (unknown) date) unknown) (unknown) (no (unknown) (unknown) Vital Signs (units (un known) date) unknown) (unknown) (no (unknown) (unknown) Vital signs: (units (u nknown) date) unknown) (unknown) (no (unknown) (unknown) Danika García, (units (unknown) date) KIANNA [Primary Care unknown) Provider] (unknown) (no (unknown) (unknown) [ ] New medication (units (unknown) date) written as a paper unknown) prescription (unknown) (no (unknown) (unknown) [ ] No new (units (unk nown) date) medications given unknown) (unknown) (no (unknown) (unknown) [ x] New (units (unkno wn) date) medication unknown) prescriptions sent to your pharmacy: [ [facility] (unknown) (no (unknown) (unknown) alcohol intake (units (unknown) date) frequency: unknown) holidays/special occasions only (unknown) (no (unknown) (unknown) alcohol intake: (units (unknown) date) current unknown) (unknown) (no (unknown) (unknown) and below (units (unkn own) date) unknown) (unknown) (no (unknown) (unknown) and cooperative (units (unknown) date) unknown) (unknown) (no (unknown) (unknown) and excoriation of (units (unknown) date) his groin and has unknown) history spinal cord tumor causing paralysis (unknown) (no (unknown) (unknown) applied (units (unkno wn) date) unknown) (unknown) (no (unknown) (unknown) appointment. Let (units (unknown) date) them know you were unknown) seen in the Emergency Department and that we (unknown) (no (unknown) (unknown) ask that you be (units (unknown) date) seen in follow up. unknown) We will electronically transmit a record of (unknown) (no (unknown) (unknown) bladder infection (units (unknown) date) which patient has unknown) not been able to sweet pickle maker his antibiotics for (unknown) (no (unknown) (unknown) buttocks. I hope (units (unknown) date) you feel better unknown) soon, please come back for any worsening (unknown) (no (unknown) (unknown) care completed, (units (unknown) date) barrier cream unknown) applied, patient was treated with Bactrim, (unknown) (no (unknown) (unknown) caregivers are (units (unknown) date) providing Gail unknown) care, afebrile (unknown) (no (unknown) (unknown) changes, this (units ( unknown) date) infection may take unknown) 1-2 weeks to clear. (unknown) (no (unknown) (unknown) concerned about (units (unknown) date) purulence drainage unknown) in his catheter today. Patient has erythema (unknown) (no (unknown) (unknown) concerning (units (unk nown) date) symptoms, such as unknown) [fever greater than 101 F, shaking chills, (unknown) (no (unknown) (unknown) diagnosed with (units (unknown) date) COVID-19, acute unknown) cystitis with MRSA growing in his urine culture (unknown) (no (unknown) (unknown) distress, well (units (unknown) date) groomed, paralysis unknown) of lower extremities at baseline, bedside (unknown) (no (unknown) (unknown) drainage in his (units (unknown) date) Bowling catheter with unknown) suprapubic tenderness. Patient denies any (unknown) (no (unknown) (unknown) emergency (units (unkn own) date) department by his unknown) home health nurse who noticed ongoing purulence (unknown) (no (unknown) (unknown) every 6-8 hours as (units (unknown) date) needed for bladder unknown) pain, use Toradol every 8 hours instead of (unknown) (no (unknown) (unknown) extremities (units (un known) date) unknown) (unknown) (no (unknown) (unknown) fever, chills, (units (unknown) date) nausea vomiting, unknown) has allergy to morphine but states can tolerate (unknown) (no (unknown) (unknown) for medications. (units (unknown) date) Patient was also unknown) diagnosed COVID positive on 07/23/2022 states (unknown) (no (unknown) (unknown) gabapentin AdvReac (units (unknown) date) Shakiness Verified unknown) 10/16/21 09:17 (unknown) (no (unknown) (unknown) history and help (units (unknown) date) get you set up with unknown) a doctor in the community. (unknown) (no (unknown) (unknown) household members: (units (unknown) date) spouse, children, unknown) friend(s) and other (unknown) (no (unknown) (unknown) ibuprofen for (units ( unknown) date) additional pain unknown) relief, Percocet as needed for breakthrough pain. (unknown) (no (unknown) (unknown) it went to the (units (unknown) date) wrong pharmacy unknown) after his visit on 07/23/2022. He was sent to the (unknown) (no (unknown) (unknown) ketorolac 10 mg (units (unknown) date) tablet 10 mg PO Q8H unknown) PRN pain #14 tabs 07/30/22 (unknown) (no (unknown) (unknown) ketorolac 10 mg (units (unknown) date) tablet unknown) (unknown) (no (unknown) (unknown) leave on most (units ( unknown) date) painful area for 12 unknown) hrs (unknown) (no (unknown) (unknown) lidocaine 5 % (units ( unknown) date) topical patch 1 unknown) patch topical DAILY #15 ea 07/11/22 (unknown) (no (unknown) (unknown) lidocaine (units (unkn own) date) [Lidoderm] 5 % unknown) adhesive patch,medicated (unknown) (no (unknown) (unknown) metoprolol (units (unk nown) date) tartrate 50 mg unknown) tablet 50 mg PO BID 10/15/21 10/15/21 (unknown) (no (unknown) (unknown) metoprolol (units (unk nown) date) tartrate 50 mg unknown) tablet (unknown) (no (unknown) (unknown) mg tablet (units (unkn own) date) (Percocet) unknown) (unknown) (no (unknown) (unknown) mg-trimethoprim (units (unknown) date) 160 mg tablet unknown) (unknown) (no (unknown) (unknown) morphine Allergy (units (unknown) date) Nightmare Verified unknown) 10/16/21 09:17 (unknown) (no (unknown) (unknown) new symptoms since (units (unknown) date) his last hospital unknown) visit, denies fever, chills, nausea (unknown) (no (unknown) (unknown) of bilateral lower (units (unknown) date) extremities. unknown) Patient wears chronic Bowling catheter. Denies (unknown) (no (unknown) (unknown) oxycodone-acetamin (units (unknown) date) ophen 5 mg-325 1 unknown) tab PO Q8H PRN pain #14 tabs 07/30/22 (unknown) (no (unknown) (unknown) oxycodone-acetamin (units (unknown) date) ophen [Percocet] unknown) 5-325 mg tablet (unknown) (no (unknown) (unknown) phenazopyridine (units (unknown) date) 100 mg tablet 100 unknown) mg PO Q8H PRN bladder pain #10 07/30/22 (unknown) (no (unknown) (unknown) phenazopyridine (units (unknown) date) [Pyridium] 100 mg unknown) tablet (unknown) (no (unknown) (unknown) pregabalin 300 mg (units (unknown) date) capsule (Lyrica) unknown) 300 mg PO BID 10/15/21 10/15/21 (unknown) (no (unknown) (unknown) pregabalin (units (unk nown) date) [Lyrica] 300 mg unknown) capsule (unknown) (no (unknown) (unknown) provider apply a (units (unknown) date) zinc barrier cream unknown) to all areas of redness of groin and (unknown) (no (unknown) (unknown) showing (units (unkno wn) date) sensitivity to unknown) Bactrim which he was prescribed but unable to sweet pickle maker as (unknown) (no (unknown) (unknown) start these (units (un known) date) antibiotics, have unknown) your medications picked up watery, use Pyridium (unknown) (no (unknown) (unknown) sulfamethoxazole (units (unknown) date) 800 1 tab PO BID 10 unknown) days #20 tabs 07/24/22 (unknown) (no (unknown) (unknown) sulfamethoxazole (units (unknown) date) 800 1 tab PO Q12H unknown) 10 days #20 tabs 07/30/22 (unknown) (no (unknown) (unknown) sulfamethoxazole-t (units (unknown) date) rimethoprim unknown) [Bactrim DS] 800-160 mg tablet (unknown) (no (unknown) (unknown) tenderness or (units ( unknown) date) exquisite unknown) tenderness with exam. (unknown) (no (unknown) (unknown) that he was (units (un known) date) diagnosed positive unknown) with on 07/23/2022. On chart review it appears (unknown) (no (unknown) (unknown) that his symptoms (units (unknown) date) of COVID have unknown) improved. He has home health nurse who was (unknown) (no (unknown) (unknown) that patient has a (units (unknown) date) UTI growing MRSA unknown) over 100,000 CFUs, showing sensitivity to (unknown) (no (unknown) (unknown) today's note if (units (unknown) date) your PCP is in our unknown) system (unknown) (no (unknown) (unknown) vomiting, flank (units (unknown) date) pain, complains of unknown) suprapubic tenderness and pressure. (unknown) (no (unknown) (unknown) vomiting. He was (units (unknown) date) given 1 L of normal unknown) saline, Bowling catheter was irrigated, gail (unknown) (no (unknown) (unknown) weakness (units (unkno wn) date) unknown) (unknown) (no (unknown) (unknown) wheezing, stridor, (units (unknown) date) or abnormal breath unknown) sounds. No retractions or tachypnea. (unknown) (no (unknown) (unknown) with hematuria (units (unknown) date) unknown) (unknown) (no (unknown) (unknown) without (units (unkno wn) date) obstruction, Gail unknown) care completed without new wounds, barrier ointment (unknown) (no (unknown) (unknown) worsening pain, (units (unknown) date) persistent vomiting unknown) or other bothersome symptoms] (unknown) (no (unknown) (unknown) your Bowling (units (unk nown) date) catheter changed at unknown) that point. Please stay hydrated, have your care (unknown) (no (unknown) (unknown) zinc oxide 15 % (units (unknown) date) cream unknown) (unknown) (no (unknown) (unknown) zinc oxide 15 % (units (unknown) date) topical cream 1 unknown) applic topical BID #99 grams 07/30/22 Result panel [id number] (unknown) (no (unknown) (unknown) (no value) (units (unk nown) date) unknown) (unknown) (no (unknown) (unknown) #: [id number] (units (un known) date) unknown) (unknown) (no (unknown) (unknown) (Bactrim DS) (units (u nknown) date) unknown) (unknown) (no (unknown) (unknown) (Lidoderm) (units (unk nown) date) unknown) (unknown) (no (unknown) (unknown) (Pyridium) tabs (units (unknown) date) unknown) (unknown) (no (unknown) (unknown) * Ciprofloxacin (units (unknown) date) >=8 R unknown) (unknown) (no (unknown) (unknown) * Daptomycin 0.25 (units (unknown) date) S unknown) (unknown) (no (unknown) (unknown) * Doxycycline (units ( unknown) date) <=0.5 S unknown) (unknown) (no (unknown) (unknown) * Gentamicin <=0.5 (units (unknown) date) S unknown) (unknown) (no (unknown) (unknown) * Levofloxacin 4 I (units (unknown) date) unknown) (unknown) (no (unknown) (unknown) * Linezolid 2 S (units (unknown) date) unknown) (unknown) (no (unknown) (unknown) * Moxifloxacin 1 S (units (unknown) date) unknown) (unknown) (no (unknown) (unknown) * Nitrofurantoin (units (unknown) date) <=16 S unknown) (unknown) (no (unknown) (unknown) * Oxacillin Jacob (units (unknown) date) >=4 R unknown) (unknown) (no (unknown) (unknown) * Rifampin <=0.5 S (units (unknown) date) unknown) (unknown) (no (unknown) (unknown) * Tetracycline <=1 (units (unknown) date) S unknown) (unknown) (no (unknown) (unknown) * (units (unkno wn) date) Trimethoprim/Sulfam unknown) ethoxazole <=10 S (unknown) (no (unknown) (unknown) * Vancomycin 1 S (units (unknown) date) unknown) (unknown) (no (unknown) (unknown) *If you do not (units (unknown) date) have a primary care unknown) provider please contact the [facility] (unknown) (no (unknown) (unknown) *Please continue (units (unknown) date) to take your unknown) regular medications as directed. (unknown) (no (unknown) (unknown) *Please follow up (units (unknown) date) with your primary unknown) care provider in 2-3 days, call for an (unknown) (no (unknown) (unknown) *Return to (units (unk nown) date) Emergency unknown) Department if you should have any new, worsening or (unknown) (no (unknown) (unknown) *What to do: (units (u nknown) date) unknown) (unknown) (no (unknown) (unknown) *You have been (units (unknown) date) diagnosed with unknown) worsening bladder infection, you are positive for (unknown) (no (unknown) (unknown) --------- (units (unkn own) date) unknown) (unknown) (no (unknown) (unknown) [id number] (units (unkno wn) date) unknown) (unknown) (no (unknown) (unknown) [id number] (units (unkno wn) date) unknown) (unknown) (no (unknown) (unknown) 1 applic topical (units (unknown) date) BID Qty: 99 0RF unknown) (unknown) (no (unknown) (unknown) 1 patch TOP DAILY (units (unknown) date) Qty: 15 0RF unknown) (unknown) (no (unknown) (unknown) 1 tab PO BID 10 (units (unknown) date) Days Qty: 20 0RF unknown) (unknown) (no (unknown) (unknown) 1 tab PO Q12H 10 (units (unknown) date) Days Qty: 20 0RF unknown) (unknown) (no (unknown) (unknown) 1 tab PO Q8H PRN (units (unknown) date) (Reason: pain) Qty: unknown) 14 0RF (unknown) (no (unknown) (unknown) 1. Methicillin (units (unknown) date) Resis Staph Aureus unknown) (unknown) (no (unknown) (unknown) 10 mg PO Q8H PRN (units (unknown) date) (Reason: pain) Qty: unknown) 14 0RF (unknown) (no (unknown) (unknown) 100 mg PO Q8H PRN (units (unknown) date) (Reason: bladder unknown) pain) Qty: 10 0RF (unknown) (no (unknown) (unknown) 07/30/22 18:48 (units (unknown) date) unknown) (unknown) (no (unknown) (unknown) 07/30/22 (units (unkno wn) date) unknown) (unknown) (no (unknown) (unknown) [address] [place] [address], (units (unknown) date) [facility], [address] unknown) (unknown) (no (unknown) (unknown) 18:19 (units (unkno wn) date) unknown) (unknown) (no (unknown) (unknown) 300 mg PO BID (units ( unknown) date) unknown) (unknown) (no (unknown) (unknown) 50 mg PO BID (units (u nknown) date) unknown) (unknown) (no (unknown) (unknown) (units (unknown) date) Unit#: [id number] unknown) : 1975Location: ED (unknown) (no (unknown) (unknown) Action to follow (units (unknown) date) No Further Workup unknown) (unknown) (no (unknown) (unknown) Activity (units (unkno wn) date) Restrictions/Additi unknown) onal Instructions: (unknown) (no (unknown) (unknown) Acute cystitis (units (unknown) date) unknown) (unknown) (no (unknown) (unknown) Age/Sex: 47 / M (units (unknown) date) unknown) (unknown) (no (unknown) (unknown) Allergies (units (unkn own) date) unknown) (unknown) (no (unknown) (unknown) Allergy/AdvReac (units (unknown) date) Type Severity unknown) Reaction Status Date / Time (unknown) (no (unknown) (unknown) Back pain (units (unkn own) date) unknown) (unknown) (no (unknown) (unknown) Bactrim which (units ( unknown) date) patient was unknown) prescribed but did not sweet pickle maker due to wrong pharmacy (unknown) (no (unknown) (unknown) Blood Pressure (units (unknown) date) 152/100 H 07/30/22 unknown) 18:19 (unknown) (no (unknown) (unknown) Blood Pressure (units (unknown) date) 152/100 H unknown) (unknown) (no (unknown) (unknown) C (units (unkno wn) date) unknown) (unknown) (no (unknown) (unknown) COVID, MRSA, and (units (unknown) date) your urine unknown) infection appears to have gotten worse. 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 (units (unknown) date) unknown) (unknown) (no (unknown) (unknown) : 1975 (units (unknown) date) Acct:[id number] unknown) (unknown) (no (unknown) (unknown) Date of Service: (units (unknown) date) 07/30/22 unknown) (unknown) (no (unknown) (unknown) Departure (units (unkn own) date) unknown) (unknown) (no (unknown) (unknown) Discharge Plan (units (unknown) date) unknown) (unknown) (no (unknown) (unknown) Discontinued (units (u nknown) date) Medications unknown) (unknown) (no (unknown) (unknown) ED Orders (units (unkn own) date) unknown) (unknown) (no (unknown) (unknown) ER Physician: (units ( unknown) date) Za Harrell unknown) GENIE (unknown) (no (unknown) (unknown) Emergency Report (units (unknown) date) unknown) (unknown) (no (unknown) (unknown) Exam Narrative: (units (unknown) date) unknown) (unknown) (no (unknown) (unknown) Exam (units (unkno wn) date) unknown) (unknown) (no (unknown) (unknown) Extensive (units (unkno wn) date) conversation about unknown) ER return precautions and need for close follow-up. (unknown) (no (unknown) (unknown) FAX TO: (units (unkno wn) date) unknown) (unknown) (no (unknown) (unknown) Family History (units (unknown) date) (Reviewed 07/30/22 unknown) @ 19:09 by GENIE Da Silva) (unknown) (no (unknown) (unknown) Father CVA (units (unk nown) date) (cerebral vascular unknown) accident) (unknown) (no (unknown) (unknown) Functional (units (unk nown) date) paraparesis unknown) (unknown) (no (unknown) (unknown) GI: abdomen soft, (units (unknown) date) nontender to unknown) palpation, nondistended, without masses, rebound (unknown) (no (unknown) (unknown) : Catheter (units (u nknown) date) draining purulence unknown) drainage, this was irrigated by bedside nurse, (unknown) (no (unknown) (unknown) General (units (unkno wn) date) unknown) (unknown) (no (unknown) (unknown) General: (units (unkno wn) date) cooperative, unknown) appears uncomfortable, complains of pain, in no acute (unknown) (no (unknown) (unknown) HEENT: symmetrical (units (unknown) date) facial expressions, unknown) moist mucous membranes (unknown) (no (unknown) (unknown) HPI - Male (units (unk nown) date) Genitourinary unknown) (unknown) (no (unknown) (unknown) HPI Narrative: (units (unknown) date) unknown) (unknown) (no (unknown) (unknown) Hematuria (units (unkn own) date) presence: with unknown) hematuria Qualified Code(s): N30.01 - Acute cystitis (unknown) (no (unknown) (unknown) History of Present (units (unknown) date) Illness unknown) (unknown) (no (unknown) (unknown) History of spinal (units (unknown) date) surgery unknown) (unknown) (no (unknown) (unknown) History of (units (unk nown) date) tonsillectomy unknown) (unknown) (no (unknown) (unknown) Home Medications (units (unknown) date) unknown) (unknown) (no (unknown) (unknown) Hydromorphone HCl (units (unknown) date) (Hydromorphone 0.5 unknown) Mg Inj) 0.5 mg IV NOW ONE (unknown) (no (unknown) (unknown) Hypertension (units (u nknown) date) unknown) (unknown) (no (unknown) (unknown) Initial Vital (units ( unknown) date) Signs unknown) (unknown) (no (unknown) (unknown) Initial Vital (units ( unknown) date) Signs: unknown) (unknown) (no (unknown) (unknown) Instructions: DI (units (unknown) date) for Urinary Tract unknown) Infection (UTI) (unknown) (no (unknown) (unknown) [facility] (units (unknown) date) [address] unknown) [place] [address] (unknown) (no (unknown) (unknown) [facility] (units (unknown) date) Laboratory CLIA ID unknown) [id number] (unknown) (no (unknown) (unknown) Ketorolac (units (unkn own) date) Tromethamine unknown) (Ketorolac 30 Mg/Ml Vial) 15 mg IV NOW ONE (unknown) (no (unknown) (unknown) Label Comments: (units (unknown) date) unknown) (unknown) (no (unknown) (unknown) Last Admin: (units (un known) date) 07/30/22 18:44 unknown) Dose: 0.5 mg (unknown) (no (unknown) (unknown) Last Admin: (units (un known) date) 07/30/22 18:44 unknown) Dose: 1 tab (unknown) (no (unknown) (unknown) Last Admin: (units (un known) date) 07/30/22 18:44 unknown) Dose: 100 mg (unknown) (no (unknown) (unknown) Last Admin: (units (un known) date) 07/30/22 18:44 unknown) Dose: 15 mg (unknown) (no (unknown) (unknown) M.I.C. RX (units (unkn own) date) unknown) (unknown) (no (unknown) (unknown) MDM - Male (units (unk nown) date) Genitourinary unknown) (unknown) (no (unknown) (unknown) MDM Narrative (units ( unknown) date) unknown) (unknown) (no (unknown) (unknown) MRSA (methicillin (units (unknown) date) resistant staph unknown) aureus) culture positive, COVID-19 (unknown) (no (unknown) (unknown) MRSA? YES (units (unkn own) date) unknown) (unknown) (no (unknown) (unknown) MSK: moves upper (units (unknown) date) extremities without unknown) deficit, neurovascularly intact, no new (unknown) (no (unknown) (unknown) Medical History (units (unknown) date) (Reviewed 07/30/22 unknown) @ 19:09 by Za Harrell [facility]) (unknown) (no (unknown) (unknown) Medical decision (units (unknown) date) making narrative: unknown) (unknown) (no (unknown) (unknown) Medication (units (unk nown) date) Instructions unknown) Recorded Confirmed (unknown) (no (unknown) (unknown) Medication (units (unk nown) date) Instructions unknown) Recorded (unknown) (no (unknown) (unknown) Mode of arrival: (units (unknown) date) EMS unknown) (unknown) (no (unknown) (unknown) Mother Myocardial (units (unknown) date) infarct unknown) (unknown) (no (unknown) (unknown) Name: Eleazar (units (unk nown) date) Yann Jones Age/Sex: unknown) 47/M Attend Dr: (unknown) (no (unknown) (unknown) Narrative (units (unkn own) date) unknown) (unknown) (no (unknown) (unknown) Neuro: normal (units ( unknown) date) speech and unknown) cognition, A+O x3, ambulatory, clear speech (unknown) (no (unknown) (unknown) Neurogenic pain (units (unknown) date) unknown) (unknown) (no (unknown) (unknown) New (units (unkno wn) date) unknown) (unknown) (no (unknown) (unknown) No Action (units (unkn own) date) unknown) (unknown) (no (unknown) (unknown) ONE (units (unkno wn) date) unknown) (unknown) (no (unknown) (unknown) ORDERED: URINE (units (unknown) date) CULTURE unknown) (unknown) (no (unknown) (unknown) [place]] (units (un known) date) unknown) (unknown) (no (unknown) (unknown) Ordered: (units (unkno wn) date) unknown) (unknown) (no (unknown) (unknown) Orders (units (unkno wn) date) unknown) (unknown) (no (unknown) (unknown) Organism 1 (units (unk nown) date) Methicillin Resis unknown) Staph Aureus (unknown) (no (unknown) (unknown) Oxygen Delivery (units (unknown) date) Method 07/30/22 unknown) 18:19 (unknown) (no (unknown) (unknown) Oxygen Delivery (units (unknown) date) Method Room Air unknown) (unknown) (no (unknown) (unknown) PAGE 1 (units (unkno wn) date) unknown) (unknown) (no (unknown) (unknown) Patient (units (unkno wn) date) Disposition: Home unknown) (unknown) (no (unknown) (unknown) Patient History (units (unknown) date) unknown) (unknown) (no (unknown) (unknown) Patient: Bush (units ( unknown) date) Yann Jones MR#: [id number] unknown) (unknown) (no (unknown) (unknown) Phenazopyridine (units (unknown) date) HCl unknown) (Phenazopyridine 100 Mg Tablet) 100 mg PO NOW ONE (unknown) (no (unknown) (unknown) Please follow-up (units (unknown) date) with your primary unknown) care provider for a test of cure, please have (unknown) (no (unknown) (unknown) Prescriptions: (units (unknown) date) unknown) (unknown) (no (unknown) (unknown) Previous Rx's (units ( unknown) date) unknown) (unknown) (no (unknown) (unknown) Procedure Result (units (unknown) date) Verified unknown) (unknown) (no (unknown) (unknown) Psych: mental (units ( unknown) date) status is grossly unknown) normal, congruent mood, normal affect, pleasant (unknown) (no (unknown) (unknown) Pulse Oximetry 95 (units (unknown) date) 07/30/22 18:19 unknown) (unknown) (no (unknown) (unknown) Pulse Oximetry 95 (units (unknown) date) unknown) (unknown) (no (unknown) (unknown) Pulse Rate 106 H (units (unknown) date) 07/30/22 18:19 unknown) (unknown) (no (unknown) (unknown) Pulse Rate 106 H (units (unknown) date) unknown) (unknown) (no (unknown) (unknown) Pyridium, given (units (unknown) date) hydromorphone for unknown) his pain and symptoms. He was given a prepack (unknown) (no (unknown) (unknown) Qualifiers: (units (un known) date) unknown) (unknown) (no (unknown) (unknown) ROS Unobtainable: (units (unknown) date) All systems unknown) reviewed + are unremarkable except as noted in HPI (unknown) (no (unknown) (unknown) RUN DATE: 07/30/22 (units (unknown) date) Specimen Inquiry unknown) (unknown) (no (unknown) (unknown) RUN TIME: 1907 (units (unknown) date) unknown) (unknown) (no (unknown) (unknown) Referrals: (units (unk nown) date) unknown) (unknown) (no (unknown) (unknown) Re07/23/22 (units ( unknown) date) Disch: Status: DEP unknown) ER (unknown) (no (unknown) (unknown) Related Data (units (u nknown) date) unknown) (unknown) (no (unknown) (unknown) Resource line at (units (unknown) date) [phone]. They unknown) will ask some questions about your medical (unknown) (no (unknown) (unknown) Respiratory Rate (units (unknown) date) 24 07/30/22 18:19 unknown) (unknown) (no (unknown) (unknown) Respiratory Rate (units (unknown) date) 24 unknown) (unknown) (no (unknown) (unknown) Respiratory: (units (u nknown) date) normal effort, able unknown) to speak in complete sentences, without (unknown) (no (unknown) (unknown) Review of Systems (units (unknown) date) unknown) (unknown) (no (unknown) (unknown) Reviewed vitals (units (unknown) date) signsand nursing unknown) notes. (unknown) (no (unknown) (unknown) Rx Instructions: (units (unknown) date) unknown) (unknown) (no (unknown) (unknown) SOURCE: UA Reflex (units (unknown) date) ENTR: 07/24/22-0325 unknown) OTHR DR: Danika García (unknown) (no (unknown) (unknown) SPDESC: RECD: (units ( unknown) date) 07/23/22-234 SUBM unknown) DR: Tian Hebert D.O. 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 unknown) (unknown) (no (unknown) (unknown) Signed By: (units (unk nown) date) unknown) (unknown) (no (unknown) (unknown) Site (units (unkno wn) date) unknown) (unknown) (no (unknown) (unknown) Skin: brisk (units (un known) date) capillary refill, unknown) without pallor or open wounds (unknown) (no (unknown) (unknown) Smoking Status: (units (unknown) date) Former smoker unknown) (unknown) (no (unknown) (unknown) Social History (units (unknown) date) (Reviewed 07/30/22 unknown) @ 19:09 by ZaGENIE Andrea) (unknown) (no (unknown) (unknown) Source: patient (units (unknown) date) and EMS unknown) (unknown) (no (unknown) (unknown) Stated complaint: (units (unknown) date) UTI unknown) (unknown) (no (unknown) (unknown) Stop: 07/30/22 (units (unknown) date) 18:31 unknown) (unknown) (no (unknown) (unknown) Stop: 07/30/22 (units (unknown) date) 18:33 unknown) (unknown) (no (unknown) (unknown) Substance Use (units ( unknown) date) Type: does not use unknown) (unknown) (no (unknown) (unknown) Surgical History (units (unknown) date) (Reviewed 07/30/22 unknown) @ 19:09 by GENIE Da Silva) (unknown) (no (unknown) (unknown) Take 1 capsule by (units (unknown) date) mouth twice a day unknown) for chronic back pain (unknown) (no (unknown) (unknown) Take 1 tablet by (units (unknown) date) mouth twice a day unknown) (unknown) (no (unknown) (unknown) Temperature 98.1 F (units (unknown) date) 07/30/22 18:19 unknown) (unknown) (no (unknown) (unknown) Temperature 98.1 F (units (unknown) date) unknown) (unknown) (no (unknown) (unknown) This is a (units (unkn own) date) 47-year-old male unknown) who is brought in for evaluation by EMS of his (unknown) (no (unknown) (unknown) This is a (units (unkn own) date) 47-year-old male unknown) who returns to the emergency department after he was (unknown) (no (unknown) (unknown) Time Seen by (units (u nknown) date) Provider: 07/30/22 unknown) 18:24 (unknown) (no (unknown) (unknown) Trimethoprim/Sulfa (units (unknown) date) methoxazole unknown) (Trimeth/Sulfa 160/800 (Ds) Tablet) 1 tab PO NOW (unknown) (no (unknown) (unknown) Urine Culture (units ( unknown) date) Final 07/26/22 unknown) (unknown) (no (unknown) (unknown) Vicodin and (units (un known) date) oxycodone. States unknown) that he has been p.o. tolerant, denies any (unknown) (no (unknown) (unknown) Vital Signs - 8 hr (units (unknown) date) unknown) (unknown) (no (unknown) (unknown) Vital Signs (units (un known) date) unknown) (unknown) (no (unknown) (unknown) Vital signs: (units (u nknown) date) unknown) (unknown) (no (unknown) (unknown) Danika García, (units (unknown) date) KIANNA [Primary Care unknown) Provider] (unknown) (no (unknown) (unknown) [ ] New medication (units (unknown) date) written as a paper unknown) prescription (unknown) (no (unknown) (unknown) [ ] No new (units (unk nown) date) medications given unknown) (unknown) (no (unknown) (unknown) [ x] New (units (unkno wn) date) medication unknown) prescriptions sent to your pharmacy: [ Luke (unknown) (no (unknown) (unknown) abdominal exam. (units (unknown) date) Patient remains unknown) p.o. tolerant. Serial abdominal exam without (unknown) (no (unknown) (unknown) abdominal process, (units (unknown) date) such as acute unknown) pyelonephritis, nephrolithiasis, pancreatitis, (unknown) (no (unknown) (unknown) alcohol intake (units (unknown) date) frequency: unknown) holidays/special occasions only (unknown) (no (unknown) (unknown) alcohol intake: (units (unknown) date) current unknown) (unknown) (no (unknown) (unknown) and below (units (unkn own) date) unknown) (unknown) (no (unknown) (unknown) and cooperative (units (unknown) date) unknown) (unknown) (no (unknown) (unknown) and excoriation of (units (unknown) date) his groin and has unknown) history spinal cord tumor causing paralysis (unknown) (no (unknown) (unknown) applied (units (unkno wn) date) unknown) (unknown) (no (unknown) (unknown) appointment. Let (units (unknown) date) them know you were unknown) seen in the Emergency Department and that we (unknown) (no (unknown) (unknown) ask that you be (units (unknown) date) seen in follow up. unknown) We will electronically transmit a record of (unknown) (no (unknown) (unknown) bladder infection (units (unknown) date) which patient has unknown) not been able to sweet pickle maker his antibiotics for (unknown) (no (unknown) (unknown) buttocks. I hope (units (unknown) date) you feel better unknown) soon, please come back for any worsening (unknown) (no (unknown) (unknown) care completed, (units (unknown) date) barrier cream unknown) applied, patient was treated with Bactrim, (unknown) (no (unknown) (unknown) caregivers are (units (unknown) date) providing Gail unknown) care, afebrile (unknown) (no (unknown) (unknown) changes, this (units ( unknown) date) infection may take unknown) 1-2 weeks to clear. (unknown) (no (unknown) (unknown) concerned about (units (unknown) date) purulence drainage unknown) in his catheter today. Patient has erythema (unknown) (no (unknown) (unknown) concerning (units (unk nown) date) symptoms, such as unknown) [fever greater than 101 F, shaking chills, (unknown) (no (unknown) (unknown) diagnosed with (units (unknown) date) COVID-19, acute unknown) cystitis with MRSA growing in his urine culture (unknown) (no (unknown) (unknown) distress, well (units (unknown) date) groomed, paralysis unknown) of lower extremities at baseline, bedside (unknown) (no (unknown) (unknown) drainage in his (units (unknown) date) Bowling catheter with unknown) suprapubic tenderness. Patient denies any (unknown) (no (unknown) (unknown) emergency (units (unkn own) date) department by his unknown) home health nurse who noticed ongoing purulence (unknown) (no (unknown) (unknown) every 6-8 hours as (units (unknown) date) needed for bladder unknown) pain, use Toradol every 8 hours instead of (unknown) (no (unknown) (unknown) extremities (units (un known) date) unknown) (unknown) (no (unknown) (unknown) fever, chills, (units (unknown) date) nausea vomiting, unknown) has allergy to morphine but states can tolerate (unknown) (no (unknown) (unknown) for medications. (units (unknown) date) Patient was also unknown) diagnosed COVID positive on 07/23/2022 states (unknown) (no (unknown) (unknown) gabapentin AdvReac (units (unknown) date) Shakiness Verified unknown) 10/16/21 09:17 (unknown) (no (unknown) (unknown) history and help (units (unknown) date) get you set up with unknown) a doctor in the community. (unknown) (no (unknown) (unknown) household members: (units (unknown) date) spouse, children, unknown) friend(s) and other (unknown) (no (unknown) (unknown) ibuprofen for (units ( unknown) date) additional pain unknown) relief, Percocet as needed for breakthrough pain. (unknown) (no (unknown) (unknown) increase in (units (un known) date) abdominal pain. unknown) Given history and exam, low suspicion for acute (unknown) (no (unknown) (unknown) it went to the (units (unknown) date) wrong pharmacy unknown) after his visit on 07/23/2022. He was sent to the (unknown) (no (unknown) (unknown) ketorolac 10 mg (units (unknown) date) tablet 10 mg PO Q8H unknown) PRN pain #14 tabs 07/30/22 (unknown) (no (unknown) (unknown) ketorolac 10 mg (units (unknown) date) tablet unknown) (unknown) (no (unknown) (unknown) leave on most (units ( unknown) date) painful area for 12 unknown) hrs (unknown) (no (unknown) (unknown) lidocaine 5 % (units ( unknown) date) topical patch 1 unknown) patch topical DAILY #15 ea 07/11/22 (unknown) (no (unknown) (unknown) lidocaine (units (unkn own) date) [Lidoderm] 5 % unknown) adhesive patch,medicated (unknown) (no (unknown) (unknown) medications will (units (unknown) date) be picked up unknown) tomorrow from [facility] in [place], patient is (unknown) (no (unknown) (unknown) metoprolol (units (unk nown) date) tartrate 50 mg unknown) tablet 50 mg PO BID 10/15/21 10/15/21 (unknown) (no (unknown) (unknown) metoprolol (units (unk nown) date) tartrate 50 mg unknown) tablet (unknown) (no (unknown) (unknown) mg tablet (units (unkn own) date) (Percocet) unknown) (unknown) (no (unknown) (unknown) mg-trimethoprim (units (unknown) date) 160 mg tablet unknown) (unknown) (no (unknown) (unknown) morphine Allergy (units (unknown) date) Nightmare Verified unknown) 10/16/21 09:17 (unknown) (no (unknown) (unknown) new symptoms since (units (unknown) date) his last hospital unknown) visit, denies fever, chills, nausea (unknown) (no (unknown) (unknown) nontoxic appearing, (units (unknown) date) his symptoms and unknown) vital signs improved on recheck, he is p.o. (unknown) (no (unknown) (unknown) of Bactrim and (units (unknown) date) Percocet so he has unknown) medications for tomorrow morning. His (unknown) (no (unknown) (unknown) of bilateral lower (units (unknown) date) extremities. unknown) Patient wears chronic Bowling catheter. Denies (unknown) (no (unknown) (unknown) oxycodone-acetamin (units (unknown) date) ophen 5 mg-325 1 unknown) tab PO Q8H PRN pain #14 tabs 07/30/22 (unknown) (no (unknown) (unknown) oxycodone-acetamin (units (unknown) date) ophen [Percocet] unknown) 5-325 mg tablet (unknown) (no (unknown) (unknown) perforated viscus, (units (unknown) date) atypical unknown) appendicitis, colitis, diverticulitis or torsion. (unknown) (no (unknown) (unknown) phenazopyridine (units (unknown) date) 100 mg tablet 100 unknown) mg PO Q8H PRN bladder pain #10 07/30/22 (unknown) (no (unknown) (unknown) phenazopyridine (units (unknown) date) [Pyridium] 100 mg unknown) tablet (unknown) (no (unknown) (unknown) pregabalin 300 mg (units (unknown) date) capsule (Lyrica) unknown) 300 mg PO BID 10/15/21 10/15/21 (unknown) (no (unknown) (unknown) pregabalin (units (unk nown) date) [Lyrica] 300 mg unknown) capsule (unknown) (no (unknown) (unknown) provider apply a (units (unknown) date) zinc barrier cream unknown) to all areas of redness of groin and (unknown) (no (unknown) (unknown) showing (units (unkno wn) date) sensitivity to unknown) Bactrim which he was prescribed but unable to sweet pickle maker as (unknown) (no (unknown) (unknown) start these (units (un known) date) antibiotics, have unknown) your medications picked up watery, use Pyridium (unknown) (no (unknown) (unknown) sulfamethoxazole (units (unknown) date) 800 1 tab PO BID 10 unknown) days #20 tabs 07/24/22 (unknown) (no (unknown) (unknown) sulfamethoxazole (units (unknown) date) 800 1 tab PO Q12H unknown) 10 days #20 tabs 07/30/22 (unknown) (no (unknown) (unknown) sulfamethoxazole-t (units (unknown) date) rimethoprim unknown) [Bactrim DS] 800-160 mg tablet (unknown) (no (unknown) (unknown) tenderness or (units ( unknown) date) exquisite unknown) tenderness with exam. (unknown) (no (unknown) (unknown) that he was (units (un known) date) diagnosed positive unknown) with on 07/23/2022. On chart review it appears (unknown) (no (unknown) (unknown) that his symptoms (units (unknown) date) of COVID have unknown) improved. 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 No peritoneal signs on (unknown) (no (unknown) (unknown) vomiting, flank (units (unknown) date) pain, complains of unknown) suprapubic tenderness and pressure. (unknown) (no (unknown) (unknown) vomiting. He was (units (unknown) date) given 1 L of normal unknown) saline, Bowling catheter was irrigated, gail (unknown) (no (unknown) (unknown) weakness (units (unkno wn) date) unknown) (unknown) (no (unknown) (unknown) wheezing, stridor, (units (unknown) date) or abnormal breath unknown) sounds. No retractions or tachypnea. (unknown) (no (unknown) (unknown) with hematuria (units (unknown) date) unknown) (unknown) (no (unknown) (unknown) without (units (unkno wn) date) obstruction, Gail unknown) care completed without new wounds, barrier ointment (unknown) (no (unknown) (unknown) worsening pain, (units (unknown) date) persistent vomiting unknown) or other bothersome symptoms] (unknown) (no (unknown) (unknown) your Bowling (units (unk nown) date) catheter changed at unknown) that point. Please stay hydrated, have your care (unknown) (no (unknown) (unknown) zinc oxide 15 % (units (unknown) date) cream unknown) (unknown) (no (unknown) (unknown) zinc oxide 15 % (units (unknown) date) topical cream 1 unknown) applic topical BID #99 grams 07/30/22 Result panel [id number] (unknown) (no (unknown) (unknown) (no value) (units (unk nown) date) unknown) (unknown) (no (unknown) (unknown) #: [id number] (units (un known) date) unknown) (unknown) (no (unknown) (unknown) (Bactrim DS) (units (u nknown) date) unknown) (unknown) (no (unknown) (unknown) (Lidoderm) (units (unk nown) date) unknown) (unknown) (no (unknown) (unknown) (Pyridium) tabs (units (unknown) date) unknown) (unknown) (no (unknown) (unknown) * Ciprofloxacin (units (unknown) date) >=8 R unknown) (unknown) (no (unknown) (unknown) * Daptomycin 0.25 (units (unknown) date) S unknown) (unknown) (no (unknown) (unknown) * Doxycycline (units ( unknown) date) <=0.5 S unknown) (unknown) (no (unknown) (unknown) * Gentamicin <=0.5 (units (unknown) date) S unknown) (unknown) (no (unknown) (unknown) * Levofloxacin 4 I (units (unknown) date) unknown) (unknown) (no (unknown) (unknown) * Linezolid 2 S (units (unknown) date) unknown) (unknown) (no (unknown) (unknown) * Moxifloxacin 1 S (units (unknown) date) unknown) (unknown) (no (unknown) (unknown) * Nitrofurantoin (units (unknown) date) <=16 S unknown) (unknown) (no (unknown) (unknown) * Oxacillin Jacob (units (unknown) date) >=4 R unknown) (unknown) (no (unknown) (unknown) * Rifampin <=0.5 S (units (unknown) date) unknown) (unknown) (no (unknown) (unknown) * Tetracycline <=1 (units (unknown) date) S unknown) (unknown) (no (unknown) (unknown) * (units (unkno wn) date) Trimethoprim/Sulfam unknown) ethoxazole <=10 S (unknown) (no (unknown) (unknown) * Vancomycin 1 S (units (unknown) date) unknown) (unknown) (no (unknown) (unknown) *If you do not (units (unknown) date) have a primary care unknown) provider please contact the [facility] (unknown) (no (unknown) (unknown) *Please continue (units (unknown) date) to take your unknown) regular medications as directed. (unknown) (no (unknown) (unknown) *Please follow up (units (unknown) date) with your primary unknown) care provider in 2-3 days, call for an (unknown) (no (unknown) (unknown) *Return to (units (unk nown) date) Emergency unknown) Department if you should have any new, worsening or (unknown) (no (unknown) (unknown) *What to do: (units (u nknown) date) unknown) (unknown) (no (unknown) (unknown) *You have been (units (unknown) date) diagnosed with unknown) worsening bladder infection, you are positive for (unknown) (no (unknown) (unknown) --------- (units (unkn own) date) unknown) (unknown) (no (unknown) (unknown) [id number] (units (unkno wn) date) unknown) (unknown) (no (unknown) (unknown) [id number] (units (unkno wn) date) unknown) (unknown) (no (unknown) (unknown) 1 applic topical (units (unknown) date) BID Qty: 99 0RF unknown) (unknown) (no (unknown) (unknown) 1 patch TOP DAILY (units (unknown) date) Qty: 15 0RF unknown) (unknown) (no (unknown) (unknown) 1 tab PO BID 10 (units (unknown) date) Days Qty: 20 0RF unknown) (unknown) (no (unknown) (unknown) 1 tab PO Q12H 10 (units (unknown) date) Days Qty: 20 0RF unknown) (unknown) (no (unknown) (unknown) 1 tab PO Q8H PRN (units (unknown) date) (Reason: pain) Qty: unknown) 14 0RF (unknown) (no (unknown) (unknown) 1. Methicillin (units (unknown) date) Resis Staph Aureus unknown) (unknown) (no (unknown) (unknown) 10 mg PO Q8H PRN (units (unknown) date) (Reason: pain) Qty: unknown) 14 0RF (unknown) (no (unknown) (unknown) 100 mg PO Q8H PRN (units (unknown) date) (Reason: bladder unknown) pain) Qty: 10 0RF (unknown) (no (unknown) (unknown) 07/30/22 18:48 (units (unknown) date) unknown) (unknown) (no (unknown) (unknown) 07/30/22 (units (unkno wn) date) unknown) (unknown) (no (unknown) (unknown) [address] [place] [address], (units (unknown) date) [place], [id number] unknown) (unknown) (no (unknown) (unknown) 18:19 (units (unkno wn) date) unknown) (unknown) (no (unknown) (unknown) 300 mg PO BID (units ( unknown) date) unknown) (unknown) (no (unknown) (unknown) 50 mg PO BID (units (u nknown) date) unknown) (unknown) (no (unknown) (unknown) 99% air with (units (u nknown) date) respirations 20 per unknown) minute, states that his pain is markedly (unknown) (no (unknown) (unknown) (units (unknown) date) Unit#: [id number] unknown) : 1975Location: ED (unknown) (no (unknown) (unknown) Action to follow (units (unknown) date) No Further Workup unknown) (unknown) (no (unknown) (unknown) Activity (units (unkno wn) date) Restrictions/Additi unknown) onal Instructions: (unknown) (no (unknown) (unknown) Age/Sex: 47 / M (units (unknown) date) unknown) (unknown) (no (unknown) (unknown) Allergies (units (unkn own) date) unknown) (unknown) (no (unknown) (unknown) Allergy/AdvReac (units (unknown) date) Type Severity unknown) Reaction Status Date / Time (unknown) (no (unknown) (unknown) Back pain (units (unkn own) date) unknown) (unknown) (no (unknown) (unknown) Bactrim which (units ( unknown) date) patient was unknown) prescribed but did not sweet pickle maker due to wrong pharmacy (unknown) (no (unknown) (unknown) Blood Pressure (units (unknown) date) 152/100 H 07/30/22 unknown) 18:19 (unknown) (no (unknown) (unknown) Blood Pressure (units (unknown) date) 152/100 H unknown) (unknown) (no (unknown) (unknown) C (units (unkno wn) date) unknown) (unknown) (no (unknown) (unknown) COVID, MRSA, and (units (unknown) date) your urine unknown) infection appears to have gotten worse. 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 (units (unknown) date) unknown) (unknown) (no (unknown) (unknown) : 1975 (units (unknown) date) Acct:[id number] unknown) (unknown) (no (unknown) (unknown) Date of Service: (units (unknown) date) 07/30/22 unknown) (unknown) (no (unknown) (unknown) Departure (units (unkn own) date) unknown) (unknown) (no (unknown) (unknown) Discharge Plan (units (unknown) date) unknown) (unknown) (no (unknown) (unknown) Discontinued (units (u nknown) date) Medications unknown) (unknown) (no (unknown) (unknown) ED Orders (units (unkn own) date) unknown) (unknown) (no (unknown) (unknown) ER Physician: (units ( unknown) date) Za Harrell unknown) LUMBER TRIMMER (unknown) (no (unknown) (unknown) Emergency Report (units (unknown) date) unknown) (unknown) (no (unknown) (unknown) Exam Narrative: (units (unknown) date) unknown) (unknown) (no (unknown) (unknown) Exam (units (unkno wn) date) unknown) (unknown) (no (unknown) (unknown) FAX TO: (units (unkno wn) date) unknown) (unknown) (no (unknown) (unknown) Family History (units (unknown) date) (Reviewed 07/30/22 unknown) @ 19:09 by Za Harrell [facility]) (unknown) (no (unknown) (unknown) Father CVA (units (unk nown) date) (cerebral vascular unknown) accident) (unknown) (no (unknown) (unknown) Functional (units (unk nown) date) paraparesis unknown) (unknown) (no (unknown) (unknown) GI: abdomen soft, (units (unknown) date) nontender to unknown) palpation, nondistended, without masses, rebound (unknown) (no (unknown) (unknown) : Catheter (units (u nknown) date) draining purulence unknown) drainage, this was irrigated by bedside nurse, (unknown) (no (unknown) (unknown) General (units (unkno wn) date) unknown) (unknown) (no (unknown) (unknown) General: (units (unkno wn) date) cooperative, unknown) appears uncomfortable, complains of pain, in no acute (unknown) (no (unknown) (unknown) HEENT: symmetrical (units (unknown) date) facial expressions, unknown) moist mucous membranes (unknown) (no (unknown) (unknown) HPI - Male (units (unk nown) date) Genitourinary unknown) (unknown) (no (unknown) (unknown) HPI Narrative: (units (unknown) date) unknown) (unknown) (no (unknown) (unknown) Have provided the (units (unknown) date) barrier cream to unknown) areas of redness in your groin and buttock (unknown) (no (unknown) (unknown) History of Present (units (unknown) date) Illness unknown) (unknown) (no (unknown) (unknown) History of spinal (units (unknown) date) surgery unknown) (unknown) (no (unknown) (unknown) History of (units (unk nown) date) tonsillectomy unknown) (unknown) (no (unknown) (unknown) Home Medications (units (unknown) date) unknown) (unknown) (no (unknown) (unknown) Hydromorphone HCl (units (unknown) date) (Hydromorphone 0.5 unknown) Mg Inj) 0.5 mg IV NOW ONE (unknown) (no (unknown) (unknown) Hypertension (units (u nknown) date) unknown) (unknown) (no (unknown) (unknown) Infection, DI for (units (unknown) date) Urinary Tract unknown) Infection (UTI) (unknown) (no (unknown) (unknown) Initial Vital (units ( unknown) date) Signs unknown) (unknown) (no (unknown) (unknown) Initial Vital (units ( unknown) date) Signs: unknown) (unknown) (no (unknown) (unknown) Instructions: How (units (unknown) date) to Care for Your unknown) Bowling Catheter -- Male, Urinary Tract (unknown) (no (unknown) (unknown) [facility] (units (unknown) date) [address] unknown) [place] [address] (unknown) (no (unknown) (unknown) [facility] (units (unknown) date) Laboratory CLIA ID unknown) [id number] (unknown) (no (unknown) (unknown) Ketorolac (units (unkn own) date) Tromethamine unknown) (Ketorolac 30 Mg/Ml Vial) 15 mg IV NOW ONE (unknown) (no (unknown) (unknown) Lab Data (units (unkno wn) date) unknown) (unknown) (no (unknown) (unknown) Lab results (units (un known) date) narrative: unknown) (unknown) (no (unknown) (unknown) Label Comments: (units (unknown) date) unknown) (unknown) (no (unknown) (unknown) Last Admin: (units (un known) date) 07/30/22 18:44 unknown) Dose: 0.5 mg (unknown) (no (unknown) (unknown) Last Admin: (units (un known) date) 07/30/22 18:44 unknown) Dose: 1 tab (unknown) (no (unknown) (unknown) Last Admin: (units (un known) date) 07/30/22 18:44 unknown) Dose: 100 mg (unknown) (no (unknown) (unknown) Last Admin: (units (un known) date) 07/30/22 18:44 unknown) Dose: 15 mg (unknown) (no (unknown) (unknown) M.I.C. RX (units (unkn own) date) unknown) (unknown) (no (unknown) (unknown) MDM - Male (units (unk nown) date) Genitourinary unknown) (unknown) (no (unknown) (unknown) MDM Narrative (units ( unknown) date) unknown) (unknown) (no (unknown) (unknown) MRSA (methicillin (units (unknown) date) resistant staph unknown) aureus) culture positive, Acute UTI (unknown) (no (unknown) (unknown) MRSA? YES (units (unkn own) date) unknown) (unknown) (no (unknown) (unknown) MSK: moves upper (units (unknown) date) extremities without unknown) deficit, neurovascularly intact, no new (unknown) (no (unknown) (unknown) Medical History (units (unknown) date) (Reviewed 07/30/22 unknown) @ 19:09 by Za Harrell [facility]) (unknown) (no (unknown) (unknown) Medical decision (units (unknown) date) making narrative: unknown) (unknown) (no (unknown) (unknown) Medication (units (unk nown) date) Instructions unknown) Recorded Confirmed (unknown) (no (unknown) (unknown) Medication (units (unk nown) date) Instructions unknown) Recorded (unknown) (no (unknown) (unknown) Mode of arrival: (units (unknown) date) EMS unknown) (unknown) (no (unknown) (unknown) Mother Myocardial (units (unknown) date) infarct unknown) (unknown) (no (unknown) (unknown) Name: Eleazar (units (unk nown) date) Yann Bonita Age/Sex: unknown) 47/M Attend Dr: (unknown) (no (unknown) (unknown) Narrative (units (unkn own) date) unknown) (unknown) (no (unknown) (unknown) Neuro: normal (units ( unknown) date) speech and unknown) cognition, A+O x3, ambulatory, clear speech (unknown) (no (unknown) (unknown) Neurogenic pain (units (unknown) date) unknown) (unknown) (no (unknown) (unknown) New (units (unkno wn) date) unknown) (unknown) (no (unknown) (unknown) No Action (units (unkn own) date) unknown) (unknown) (no (unknown) (unknown) ONE (units (unkno wn) date) unknown) (unknown) (no (unknown) (unknown) ORDERED: URINE (units (unknown) date) CULTURE unknown) (unknown) (no (unknown) (unknown) [place]] (units (un known) date) unknown) (unknown) (no (unknown) (unknown) Ordered: (units (unkno wn) date) unknown) (unknown) (no (unknown) (unknown) Orders (units (unkno wn) date) unknown) (unknown) (no (unknown) (unknown) Organism 1 (units (unk nown) date) Methicillin Resis unknown) Staph Aureus (unknown) (no (unknown) (unknown) Oxycodone/Acetamin (units (unknown) date) ophen unknown) (Oxycodone/Apap 5/325 Prepack) 1 bottle MISC SEEINSTR (unknown) (no (unknown) (unknown) Oxygen Delivery (units (unknown) date) Method 07/30/22 unknown) 18:19 (unknown) (no (unknown) (unknown) Oxygen Delivery (units (unknown) date) Method Room Air unknown) (unknown) (no (unknown) (unknown) PAGE 1 (units (unkno wn) date) unknown) (unknown) (no (unknown) (unknown) Patient (units (unkno wn) date) Disposition: Home unknown) (unknown) (no (unknown) (unknown) Patient History (units (unknown) date) unknown) (unknown) (no (unknown) (unknown) Patient: Eleazar (units ( unknown) date) Yann Jones MR#: [id number] unknown) (unknown) (no (unknown) (unknown) Phenazopyridine (units (unknown) date) HCl unknown) (Phenazopyridine 100 Mg Tablet) 100 mg PO NOW ONE (unknown) (no (unknown) (unknown) Please follow-up (units (unknown) date) with Danika García unknown) in case you have worsening and have her (unknown) (no (unknown) (unknown) Please follow-up (units (unknown) date) with your primary unknown) care provider for a test of cure, please have (unknown) (no (unknown) (unknown) Prescriptions: (units (unknown) date) unknown) (unknown) (no (unknown) (unknown) Previous Rx's (units ( unknown) date) unknown) (unknown) (no (unknown) (unknown) Procedure Result (units (unknown) date) Verified unknown) (unknown) (no (unknown) (unknown) Psych: mental (units ( unknown) date) status is grossly unknown) normal, congruent mood, normal affect, pleasant (unknown) (no (unknown) (unknown) Pulse Oximetry 95 (units (unknown) date) 07/30/22 18:19 unknown) (unknown) (no (unknown) (unknown) Pulse Oximetry 95 (units (unknown) date) unknown) (unknown) (no (unknown) (unknown) Pulse Rate 106 H (units (unknown) date) 07/30/22 18:19 unknown) (unknown) (no (unknown) (unknown) Pulse Rate 106 H (units (unknown) date) unknown) (unknown) (no (unknown) (unknown) Pyridium, given (units (unknown) date) hydromorphone for unknown) his pain and symptoms. He was given a prepack (unknown) (no (unknown) (unknown) ROS Unobtainable: (units (unknown) date) All systems unknown) reviewed + are unremarkable except as noted in HPI (unknown) (no (unknown) (unknown) RUN DATE: 07/30/22 (units (unknown) date) Specimen Inquiry unknown) (unknown) (no (unknown) (unknown) RUN TIME: 190 (units (unknown) date) unknown) (unknown) (no (unknown) (unknown) RUN TIME: 192 (units (unknown) date) unknown) (unknown) (no (unknown) (unknown) Referrals: (units (unk nown) date) unknown) (unknown) (no (unknown) (unknown) Re07/23/22 (units ( unknown) date) Disch: Status: DEP unknown) ER (unknown) (no (unknown) (unknown) Related Data (units (u nknown) date) unknown) (unknown) (no (unknown) (unknown) Resource line at (units (unknown) date) [phone]. They unknown) will ask some questions about your medical (unknown) (no (unknown) (unknown) Respiratory Rate (units (unknown) date) 24 07/30/22 18:19 unknown) (unknown) (no (unknown) (unknown) Respiratory Rate (units (unknown) date) 24 unknown) (unknown) (no (unknown) (unknown) Respiratory: (units (u nknown) date) normal effort, able unknown) to speak in complete sentences, without (unknown) (no (unknown) (unknown) Review of Systems (units (unknown) date) unknown) (unknown) (no (unknown) (unknown) Reviewed vitals (units (unknown) date) signsand nursing unknown) notes. (unknown) (no (unknown) (unknown) Rx Instructions: (units (unknown) date) unknown) (unknown) (no (unknown) (unknown) SEEINSTR ONE (units (u nknown) date) unknown) (unknown) (no (unknown) (unknown) SOURCE: UA Reflex (units (unknown) date) ENTR: 07/24/22-0325 unknown) OTHR DR: Danika García (unknown) (no (unknown) (unknown) SPDESC: RECD: (units ( unknown) date) 07/23/22-2340 SUBM unknown) DR: Tian Hebert D.O. 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 unknown) (unknown) (no (unknown) (unknown) Signed By: (units (unk nown) date) unknown) (unknown) (no (unknown) (unknown) Site (units (unkno wn) date) unknown) (unknown) (no (unknown) (unknown) Skin: brisk (units (un known) date) capillary refill, unknown) without pallor or open wounds (unknown) (no (unknown) (unknown) Smoking Status: (units (unknown) date) Former smoker unknown) (unknown) (no (unknown) (unknown) Social History (units (unknown) date) (Reviewed 07/30/22 unknown) @ 19:09 by GENIE Da Silva) (unknown) (no (unknown) (unknown) Source: patient (units (unknown) date) and EMS unknown) (unknown) (no (unknown) (unknown) Stated complaint: (units (unknown) date) UTI unknown) (unknown) (no (unknown) (unknown) Stop: 07/30/22 (units (unknown) date) 18:31 unknown) (unknown) (no (unknown) (unknown) Stop: 07/30/22 (units (unknown) date) 18:33 unknown) (unknown) (no (unknown) (unknown) Stop: 07/30/22 (units (unknown) date) 19:14 unknown) (unknown) (no (unknown) (unknown) Substance Use (units ( unknown) date) Type: does not use unknown) (unknown) (no (unknown) (unknown) Surgical History (units (unknown) date) (Reviewed 07/30/22 unknown) @ 19:09 by Za Harrell [facility]) (unknown) (no (unknown) (unknown) Take 1 capsule by (units (unknown) date) mouth twice a day unknown) for chronic back pain (unknown) (no (unknown) (unknown) Take 1 tablet by (units (unknown) date) mouth twice a day unknown) (unknown) (no (unknown) (unknown) Temperature 98.1 F (units (unknown) date) 07/30/22 18:19 unknown) (unknown) (no (unknown) (unknown) Temperature 98.1 F (units (unknown) date) unknown) (unknown) (no (unknown) (unknown) This is a (units (unkn own) date) 47-year-old male unknown) who is brought in for evaluation by EMS of his (unknown) (no (unknown) (unknown) This is a (units (unkn own) date) 47-year-old male unknown) who returns to the emergency department after he was (unknown) (no (unknown) (unknown) Time Seen by (units (u nknown) date) Provider: 07/30/22 unknown) 18:24 (unknown) (no (unknown) (unknown) Trimethoprim/Sulfa (units (unknown) date) methoxazole unknown) (Trimeth/Sulfa 160/800 (Ds) Tablet) 1 tab PO NOW (unknown) (no (unknown) (unknown) Trimethoprim/Sulfa (units (unknown) date) methoxazole unknown) (Trimeth/Sulfa 160/800 Prepack) 1 bottle MISC (unknown) (no (unknown) (unknown) Urine Culture (units ( unknown) date) Final 07/26/22 unknown) (unknown) (no (unknown) (unknown) Vicodin and (units (un known) date) oxycodone. States unknown) that he has been p.o. tolerant, denies any (unknown) (no (unknown) (unknown) Vital Signs - 8 hr (units (unknown) date) unknown) (unknown) (no (unknown) (unknown) Vital Signs (units (un known) date) unknown) (unknown) (no (unknown) (unknown) Vital signs: (units (u nknown) date) unknown) (unknown) (no (unknown) (unknown) Dionicio Garcíaistine, (units (unknown) date) KIANNA [Primary Care unknown) Provider] (unknown) (no (unknown) (unknown) [ ] New medication (units (unknown) date) written as a paper unknown) prescription (unknown) (no (unknown) (unknown) [ ] No new (units (unk nown) date) medications given unknown) (unknown) (no (unknown) (unknown) [ x] New (units (unkno wn) date) medication unknown) prescriptions sent to your pharmacy: [ Luke (unknown) (no (unknown) (unknown) acute abdominal (units (unknown) date) process, such as unknown) acute pyelonephritis, nephrolithiasis, (unknown) (no (unknown) (unknown) alcohol intake (units (unknown) date) frequency: unknown) holidays/special occasions only (unknown) (no (unknown) (unknown) alcohol intake: (units (unknown) date) current unknown) (unknown) (no (unknown) (unknown) and below (units (unkn own) date) unknown) (unknown) (no (unknown) (unknown) and cooperative (units (unknown) date) unknown) (unknown) (no (unknown) (unknown) and excoriation of (units (unknown) date) his groin and has unknown) history spinal cord tumor causing paralysis (unknown) (no (unknown) (unknown) applied (units (unkno wn) date) unknown) (unknown) (no (unknown) (unknown) appointment. Let (units (unknown) date) them know you were unknown) seen in the Emergency Department and that we (unknown) (no (unknown) (unknown) ask that you be (units (unknown) date) seen in follow up. unknown) We will electronically transmit a record of (unknown) (no (unknown) (unknown) bladder infection (units (unknown) date) which patient has unknown) not been able to sweet pickle maker his antibiotics for (unknown) (no (unknown) (unknown) buttocks. I hope (units (unknown) date) you feel better unknown) soon, please come back for any worsening (unknown) (no (unknown) (unknown) care completed, (units (unknown) date) barrier cream unknown) applied, patient was treated with Bactrim, (unknown) (no (unknown) (unknown) caregivers are (units (unknown) date) providing Gail unknown) care, afebrile (unknown) (no (unknown) (unknown) changes, this (units ( unknown) date) infection may take unknown) 1-2 weeks to clear. (unknown) (no (unknown) (unknown) close follow-up. (units (unknown) date) Recommend he have unknown) his urine tested for cure and follow-up with (unknown) (no (unknown) (unknown) concerned about (units (unknown) date) purulence drainage unknown) in his catheter today. 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 Patient denies any (unknown) (no (unknown) (unknown) draining clear (units (unknown) date) yellow urine at unknown) this point. Patient was provided BLS transfer (unknown) (no (unknown) (unknown) emergency (units (unkn own) date) department by his unknown) home health nurse who noticed ongoing purulence (unknown) (no (unknown) (unknown) every 6-8 hours as (units (unknown) date) needed for bladder unknown) pain, use Toradol every 8 hours instead of (unknown) (no (unknown) (unknown) extremities (units (un known) date) unknown) (unknown) (no (unknown) (unknown) fever, chills, (units (unknown) date) nausea vomiting, unknown) has allergy to morphine but states can tolerate (unknown) (no (unknown) (unknown) for medications. (units (unknown) date) Patient was also unknown) diagnosed COVID positive on 07/23/2022 states (unknown) (no (unknown) (unknown) gabapentin AdvReac (units (unknown) date) Shakiness Verified unknown) 10/16/21 09:17 (unknown) (no (unknown) (unknown) his PCP for a (units ( unknown) date) urine test at that unknown) point. Bowling catheter was irrigated and is (unknown) (no (unknown) (unknown) history and help (units (unknown) date) get you set up with unknown) a doctor in the community. (unknown) (no (unknown) (unknown) home and tolerated (units (unknown) date) well. His vital unknown) signs have improved, he was no longer (unknown) (no (unknown) (unknown) household members: (units (unknown) date) spouse, children, unknown) friend(s) and other (unknown) (no (unknown) (unknown) hydromorphone, and (units (unknown) date) Percocet for his unknown) pain with IV Toradol. His symptoms were (unknown) (no (unknown) (unknown) ibuprofen for (units ( unknown) date) additional pain unknown) relief, Percocet as needed for breakthrough pain. (unknown) (no (unknown) (unknown) improved (units (unkno wn) date) afterwards Patient unknown) remains p.o. tolerant. Serial abdominal exam (unknown) (no (unknown) (unknown) improved. Urinary (units (unknown) date) catheter was placed unknown) on 07/23/2022, without obstruction or (unknown) (no (unknown) (unknown) infection at that (units (unknown) date) point. unknown) (unknown) (no (unknown) (unknown) it went to the (units (unknown) date) wrong pharmacy unknown) after his visit on 07/23/2022. He was sent to the (unknown) (no (unknown) (unknown) ketorolac 10 mg (units (unknown) date) tablet 10 mg PO Q8H unknown) PRN pain #14 tabs 07/30/22 (unknown) (no (unknown) (unknown) ketorolac 10 mg (units (unknown) date) tablet unknown) (unknown) (no (unknown) (unknown) leave on most (units ( unknown) date) painful area for 12 unknown) hrs (unknown) (no (unknown) (unknown) lidocaine 5 % (units ( unknown) date) topical patch 1 unknown) patch topical DAILY #15 ea 07/11/22 (unknown) (no (unknown) (unknown) lidocaine (units (unkn own) date) [Lidoderm] 5 % unknown) adhesive patch,medicated (unknown) (no (unknown) (unknown) medications will (units (unknown) date) be picked up unknown) [facility] [place], patient is (unknown) (no (unknown) (unknown) metoprolol (units (unk nown) date) tartrate 50 mg unknown) tablet 50 mg PO BID 10/15/21 10/15/21 (unknown) (no (unknown) (unknown) metoprolol (units (unk nown) date) tartrate 50 mg unknown) tablet (unknown) (no (unknown) (unknown) mg tablet (units (unkn own) date) (Percocet) unknown) (unknown) (no (unknown) (unknown) mg-trimethoprim (units (unknown) date) 160 mg tablet unknown) (unknown) (no (unknown) (unknown) morphine Allergy (units (unknown) date) Nightmare Verified unknown) 10/16/21 09:17 (unknown) (no (unknown) (unknown) new symptoms since (units (unknown) date) his last hospital unknown) visit, denies fever, chills, nausea (unknown) (no (unknown) (unknown) nontoxic appearing, (units (unknown) date) his symptoms and unknown) vital signs improved on recheck, he is p.o. (unknown) (no (unknown) (unknown) of Bactrim and (units (unknown) date) Percocet so he has unknown) medications for tomorrow morning. His (unknown) (no (unknown) (unknown) of bilateral lower (units (unknown) date) extremities. unknown) Patient wears chronic Bowling catheter. Denies (unknown) (no (unknown) (unknown) or torsion. (units (un known) date) Extensive unknown) conversation about ER return precautions and need for (unknown) (no (unknown) (unknown) other complicating (units (unknown) date) factor. Left in unknown) place, irrigated using sterile technique. (unknown) (no (unknown) (unknown) oxycodone-acetamin (units (unknown) date) ophen 5 mg-325 1 unknown) tab PO Q8H PRN pain #14 tabs 07/30/22 (unknown) (no (unknown) (unknown) oxycodone-acetamin (units (unknown) date) ophen [Percocet] unknown) 5-325 mg tablet (unknown) (no (unknown) (unknown) pancreatitis, (units ( unknown) date) perforated viscus, unknown) atypical appendicitis, colitis, diverticulitis (unknown) (no (unknown) (unknown) peritoneal signs (units (unknown) date) on abdominal exam. unknown) His pain was treated, he was given Bactrim, (unknown) (no (unknown) (unknown) phenazopyridine (units (unknown) date) 100 mg tablet 100 unknown) mg PO Q8H PRN bladder pain #10 07/30/22 (unknown) (no (unknown) (unknown) phenazopyridine (units (unknown) date) [Pyridium] 100 mg unknown) tablet (unknown) (no (unknown) (unknown) pregabalin 300 mg (units (unknown) date) capsule (Lyrica) unknown) 300 mg PO BID 10/15/21 10/15/21 (unknown) (no (unknown) (unknown) pregabalin (units (unk nown) date) [Lyrica] 300 mg unknown) capsule (unknown) (no (unknown) (unknown) progressive (units (unk nown) date) symptoms of unknown) worsening, denies any symptoms of COVID at this time. No (unknown) (no (unknown) (unknown) provider apply a (units (unknown) date) zinc barrier cream unknown) to all areas of redness of groin and (unknown) (no (unknown) (unknown) region. (units (unkno wn) date) unknown) (unknown) (no (unknown) (unknown) showing (units (unkno wn) date) sensitivity to unknown) Bactrim which he was prescribed but unable to sweet pickle maker as (unknown) (no (unknown) (unknown) start these (units (un known) date) antibiotics, have unknown) your medications picked up watery, use Pyridium (unknown) (no (unknown) (unknown) sulfamethoxazole (units (unknown) date) 800 1 tab PO BID 10 unknown) days #20 tabs 07/24/22 (unknown) (no (unknown) (unknown) sulfamethoxazole (units (unknown) date) 800 1 tab PO Q12H unknown) 10 days #20 tabs 07/30/22 (unknown) (no (unknown) (unknown) sulfamethoxazole-t (units (unknown) date) rimethoprim unknown) [Bactrim DS] 800-160 mg tablet (unknown) (no (unknown) (unknown) tachycardic at (units (unknown) date) time of discharge. unknown) I am sending MyChart prior to documentation (unknown) (no (unknown) (unknown) tenderness or (units ( unknown) date) exquisite unknown) tenderness with exam. (unknown) (no (unknown) (unknown) test your urine (units (unknown) date) for infection, unknown) refer you to urology if you have ongoing (unknown) (no (unknown) (unknown) that he was (units (un known) date) diagnosed positive unknown) with on 07/23/2022. On chart review it appears (unknown) (no (unknown) (unknown) that his symptoms (units (unknown) date) of COVID have unknown) improved. 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 Patient denies any (unknown) (no (unknown) (unknown) vomiting, flank (units (unknown) date) pain, complains of unknown) suprapubic tenderness and pressure. (unknown) (no (unknown) (unknown) vomiting. He was (units (unknown) date) given 1 L of normal unknown) saline, Bowling catheter was irrigated, gail (unknown) (no (unknown) (unknown) weakness (units (unkno wn) date) unknown) (unknown) (no (unknown) (unknown) wheezing, stridor, (units (unknown) date) or abnormal breath unknown) sounds. No retractions or tachypnea. (unknown) (no (unknown) (unknown) without increase (units (unknown) date) in abdominal pain. unknown) Given history and exam, low suspicion for (unknown) (no (unknown) (unknown) without (units (unkno wn) date) obstruction, Gail unknown) care completed without new wounds, barrier ointment (unknown) (no (unknown) (unknown) worsening pain, (units (unknown) date) persistent vomiting unknown) or other bothersome symptoms] (unknown) (no (unknown) (unknown) your Bowling (units (unk nown) date) catheter changed at unknown) that point. Please stay hydrated, have your care (unknown) (no (unknown) (unknown) zinc oxide 15 % (units (unknown) date) cream unknown) (unknown) (no (unknown) (unknown) zinc oxide 15 % (units (unknown) date) topical cream 1 unknown) applic topical BID #99 grams 07/30/22 Result panel [id number] (unknown) (no (unknown) (unknown) (no value) (units (unk nown) date) unknown) (unknown) (no (unknown) (unknown) #: [id number] (units (un known) date) unknown) (unknown) (no (unknown) (unknown) <Electronically (units (unknown) date) signed by Za PRESCOTT Crew> (unknown) (no (unknown) (unknown) (Bactrim DS) (units (u nknown) date) unknown) (unknown) (no (unknown) (unknown) (Lidoderm) (units (unk nown) date) unknown) (unknown) (no (unknown) (unknown) (Pyridium) tabs (units (unknown) date) unknown) (unknown) (no (unknown) (unknown) * Ciprofloxacin (units (unknown) date) >=8 R unknown) (unknown) (no (unknown) (unknown) * Daptomycin 0.25 (units (unknown) date) S unknown) (unknown) (no (unknown) (unknown) * Doxycycline (units ( unknown) date) <=0.5 S unknown) (unknown) (no (unknown) (unknown) * Gentamicin <=0.5 (units (unknown) date) S unknown) (unknown) (no (unknown) (unknown) * Levofloxacin 4 I (units (unknown) date) unknown) (unknown) (no (unknown) (unknown) * Linezolid 2 S (units (unknown) date) unknown) (unknown) (no (unknown) (unknown) * Moxifloxacin 1 S (units (unknown) date) unknown) (unknown) (no (unknown) (unknown) * Nitrofurantoin (units (unknown) date) <=16 S unknown) (unknown) (no (unknown) (unknown) * Oxacillin Jacob (units (unknown) date) >=4 R unknown) (unknown) (no (unknown) (unknown) * Rifampin <=0.5 S (units (unknown) date) unknown) (unknown) (no (unknown) (unknown) * Tetracycline <=1 (units (unknown) date) S unknown) (unknown) (no (unknown) (unknown) * (units (unkno wn) date) Trimethoprim/Sulfam unknown) ethoxazole <=10 S (unknown) (no (unknown) (unknown) * Vancomycin 1 S (units (unknown) date) unknown) (unknown) (no (unknown) (unknown) *If you do not (units (unknown) date) have a primary care unknown) provider please contact the [facility] (unknown) (no (unknown) (unknown) *Please continue (units (unknown) date) to take your unknown) regular medications as directed. (unknown) (no (unknown) (unknown) *Please follow up (units (unknown) date) with your primary unknown) care provider in 2-3 days, call for an (unknown) (no (unknown) (unknown) *Return to (units (unk nown) date) Emergency unknown) Department if you should have any new, worsening or (unknown) (no (unknown) (unknown) *What to do: (units (u nknown) date) unknown) (unknown) (no (unknown) (unknown) *You have been (units (unknown) date) diagnosed with unknown) worsening bladder infection, you are positive for (unknown) (no (unknown) (unknown) --------- (units (unkn own) date) unknown) (unknown) (no (unknown) (unknown) [id number] (units (unkno wn) date) unknown) (unknown) (no (unknown) (unknown) [id number] (units (unkno wn) date) unknown) (unknown) (no (unknown) (unknown) 1 applic topical (units (unknown) date) BID Qty: 99 0RF unknown) (unknown) (no (unknown) (unknown) 1 patch TOP DAILY (units (unknown) date) Qty: 15 0RF unknown) (unknown) (no (unknown) (unknown) 1 tab PO BID 10 (units (unknown) date) Days Qty: 20 0RF unknown) (unknown) (no (unknown) (unknown) 1 tab PO Q12H 10 (units (unknown) date) Days Qty: 20 0RF unknown) (unknown) (no (unknown) (unknown) 1 tab PO Q8H PRN (units (unknown) date) (Reason: pain) Qty: unknown) 14 0RF (unknown) (no (unknown) (unknown) 1. Methicillin (units (unknown) date) Resis Staph Aureus unknown) (unknown) (no (unknown) (unknown) 10 mg PO Q8H PRN (units (unknown) date) (Reason: pain) Qty: unknown) 14 0RF (unknown) (no (unknown) (unknown) 100 mg PO Q8H PRN (units (unknown) date) (Reason: bladder unknown) pain) Qty: 10 0RF (unknown) (no (unknown) (unknown) 07/30/22 18:48 (units (unknown) date) unknown) (unknown) (no (unknown) (unknown) 07/30/22 1939 (units ( unknown) date) unknown) (unknown) (no (unknown) (unknown) 07/30/22 (units (unkno wn) date) unknown) (unknown) (no (unknown) (unknown) [address] [place] [address], (units (unknown) date) [place], [id number] unknown) (unknown) (no (unknown) (unknown) 18:19 07/30/22 (units (unknown) date) unknown) (unknown) (no (unknown) (unknown) 18:24 07/30/22 (units (unknown) date) unknown) (unknown) (no (unknown) (unknown) 18:25 (units (unkno wn) date) unknown) (unknown) (no (unknown) (unknown) 18:30 07/30/22 (units (unknown) date) unknown) (unknown) (no (unknown) (unknown) 19:00 (units (unkno wn) date) unknown) (unknown) (no (unknown) (unknown) 300 mg PO BID (units ( unknown) date) unknown) (unknown) (no (unknown) (unknown) 50 mg PO BID (units (u nknown) date) unknown) (unknown) (no (unknown) (unknown) 99% air with (units (u nknown) date) respirations 20 per unknown) minute, states that his pain is markedly (unknown) (no (unknown) (unknown) (units (unknown) date) Unit#: [id number] unknown) : 1975Location: ED (unknown) (no (unknown) (unknown) Action to follow (units (unknown) date) No Further Workup unknown) (unknown) (no (unknown) (unknown) Activity (units (unkno wn) date) Restrictions/Additi unknown) onal Instructions: (unknown) (no (unknown) (unknown) Age/Sex: 47 / M (units (unknown) date) unknown) (unknown) (no (unknown) (unknown) Allergies (units (unkn own) date) unknown) (unknown) (no (unknown) (unknown) Allergy/AdvReac (units (unknown) date) Type Severity unknown) Reaction Status Date / Time (unknown) (no (unknown) (unknown) Back pain (units (unkn own) date) unknown) (unknown) (no (unknown) (unknown) Bactrim which (units ( unknown) date) patient was unknown) prescribed but did not sweet pickle maker due to wrong pharmacy (unknown) (no (unknown) (unknown) Blood Pressure (units (unknown) date) 152/100 H 07/30/22 unknown) 18:19 (unknown) (no (unknown) (unknown) Blood Pressure (units (unknown) date) 152/100 H 133/97 H unknown) (unknown) (no (unknown) (unknown) Blood Pressure (units (unknown) date) 154/106 H 159/115 H unknown) (unknown) (no (unknown) (unknown) Blood Pressure (units (unknown) date) unknown) (unknown) (no (unknown) (unknown) C (units (unkno wn) date) unknown) (unknown) (no (unknown) (unknown) COVID, MRSA, and (units (unknown) date) your urine unknown) infection appears to have gotten worse. Please (unknown) (no (unknown) (unknown) Called To: (units (unk nown) date) NANDINI MENDES RN unknown) (unknown) (no (unknown) (unknown) Cardiovascular: (units (unknown) date) Tachycardic rate unknown) and regular rhythm, no peripheral edema, warm (unknown) (no (unknown) (unknown) Chief complaint: (units (unknown) date) Urogenital-Male unknown) (unknown) (no (unknown) (unknown) Clinical (units (unkno wn) date) Impression: unknown) (unknown) (no (unknown) (unknown) [place] Count (units (u nknown) date) >100,000 CFU/ml unknown) (unknown) (no (unknown) (unknown) [place] [facility] [place] (units (unknown) date) Enzyme Chemist unknown) Stat (unknown) (no (unknown) (unknown) Course (units (unkno wn) date) unknown) (unknown) (no (unknown) (unknown) Stephan Issa D.O. (units (unknown) date) unknown) (unknown) (no (unknown) (unknown) : 1975 (units (unknown) date) Acct:[id number] unknown) (unknown) (no (unknown) (unknown) Date of Service: (units (unknown) date) 07/30/22 unknown) (unknown) (no (unknown) (unknown) Departure (units (unkn own) date) unknown) (unknown) (no (unknown) (unknown) Discharge Plan (units (unknown) date) unknown) (unknown) (no (unknown) (unknown) Discontinued (units (u nknown) date) Medications unknown) (unknown) (no (unknown) (unknown) ED Orders (units (unkn own) date) unknown) (unknown) (no (unknown) (unknown) ER Physician: (units ( unknown) date) Za Harrell unknown) GENIE (unknown) (no (unknown) (unknown) Emergency Report (units (unknown) date) unknown) (unknown) (no (unknown) (unknown) Exam Narrative: (units (unknown) date) unknown) (unknown) (no (unknown) (unknown) Exam (units (unkno wn) date) unknown) (unknown) (no (unknown) (unknown) FAX TO: (units (unkno wn) date) unknown) (unknown) (no (unknown) (unknown) Family History (units (unknown) date) (Reviewed 07/30/22 unknown) @ 19:09 by GENIE Da Silva) (unknown) (no (unknown) (unknown) Father CVA (units (unk nown) date) (cerebral vascular unknown) accident) (unknown) (no (unknown) (unknown) Functional (units (unk nown) date) paraparesis unknown) (unknown) (no (unknown) (unknown) GI: abdomen soft, (units (unknown) date) nontender to unknown) palpation, nondistended, without masses, rebound (unknown) (no (unknown) (unknown) : Catheter (units (u nknown) date) draining purulence unknown) drainage, this was irrigated by bedside nurse, (unknown) (no (unknown) (unknown) General (units (unkno wn) date) unknown) (unknown) (no (unknown) (unknown) General: (units (unkno wn) date) cooperative, unknown) appears uncomfortable, complains of pain, in no acute (unknown) (no (unknown) (unknown) HEENT: symmetrical (units (unknown) date) facial expressions, unknown) moist mucous membranes (unknown) (no (unknown) (unknown) HPI - Male (units (unk nown) date) Genitourinary unknown) (unknown) (no (unknown) (unknown) HPI Narrative: (units (unknown) date) unknown) (unknown) (no (unknown) (unknown) Have provided the (units (unknown) date) barrier cream to unknown) areas of redness in your groin and buttock (unknown) (no (unknown) (unknown) History of Present (units (unknown) date) Illness unknown) (unknown) (no (unknown) (unknown) History of spinal (units (unknown) date) surgery unknown) (unknown) (no (unknown) (unknown) History of (units (unk nown) date) tonsillectomy unknown) (unknown) (no (unknown) (unknown) Home Medications (units (unknown) date) unknown) (unknown) (no (unknown) (unknown) Hydromorphone HCl (units (unknown) date) (Hydromorphone 0.5 unknown) Mg Inj) 0.5 mg IV NOW ONE (unknown) (no (unknown) (unknown) Hypertension (units (u nknown) date) unknown) (unknown) (no (unknown) (unknown) Infection, DI for (units (unknown) date) Urinary Tract unknown) Infection (UTI) (unknown) (no (unknown) (unknown) Initial Vital (units ( unknown) date) Signs unknown) (unknown) (no (unknown) (unknown) Initial Vital (units ( unknown) date) Signs: unknown) (unknown) (no (unknown) (unknown) Instructions: How (units (unknown) date) to Care for Your unknown) Bowling Catheter -- Male, Urinary Tract (unknown) (no (unknown) (unknown) [facility] (units (unknown) date) [address] [place] [address] unknown) [place] [address] (unknown) (no (unknown) (unknown) [facility] (units (unknown) date) Laboratory CLIA ID unknown) [id number] (unknown) (no (unknown) (unknown) Ketorolac (units (unkn own) date) Tromethamine unknown) (Ketorolac 30 Mg/Ml Vial) 15 mg IV NOW ONE (unknown) (no (unknown) (unknown) Lab Data (units (unkno wn) date) unknown) (unknown) (no (unknown) (unknown) Lab results (units (un known) date) narrative: unknown) (unknown) (no (unknown) (unknown) Label Comments: (units (unknown) date) unknown) (unknown) (no (unknown) (unknown) Last Admin: (units (un known) date) 07/30/22 18:44 unknown) Dose: 0.5 mg (unknown) (no (unknown) (unknown) Last Admin: (units (un known) date) 07/30/22 18:44 unknown) Dose: 1 tab (unknown) (no (unknown) (unknown) Last Admin: (units (un known) date) 07/30/22 18:44 unknown) Dose: 100 mg (unknown) (no (unknown) (unknown) Last Admin: (units (un known) date) 07/30/22 18:44 unknown) Dose: 15 mg (unknown) (no (unknown) (unknown) M.I.C. RX (units (unkn own) date) unknown) (unknown) (no (unknown) (unknown) MDM - Male (units (unk nown) date) Genitourinary unknown) (unknown) (no (unknown) (unknown) MDM Narrative (units ( unknown) date) unknown) (unknown) (no (unknown) (unknown) MRSA (methicillin (units (unknown) date) resistant staph unknown) aureus) culture positive, Acute UTI (unknown) (no (unknown) (unknown) MRSA? YES (units (unkn own) date) unknown) (unknown) (no (unknown) (unknown) MSK: moves upper (units (unknown) date) extremities without unknown) deficit, neurovascularly intact, no new (unknown) (no (unknown) (unknown) Medical History (units (unknown) date) (Reviewed 07/30/22 unknown) @ 19:09 by GENIE Da Silva) (unknown) (no (unknown) (unknown) Medical decision (units (unknown) date) making narrative: unknown) (unknown) (no (unknown) (unknown) Medication (units (unk nown) date) Instructions unknown) Recorded Confirmed (unknown) (no (unknown) (unknown) Medication (units (unk nown) date) Instructions unknown) Recorded (unknown) (no (unknown) (unknown) Mode of arrival: (units (unknown) date) EMS unknown) (unknown) (no (unknown) (unknown) Mother Myocardial (units (unknown) date) infarct unknown) (unknown) (no (unknown) (unknown) Name: Eleazar (units (unk nown) date) Yann Jones Age/Sex: unknown) 47/M Attend Dr: (unknown) (no (unknown) (unknown) Narrative (units (unkn own) date) unknown) (unknown) (no (unknown) (unknown) Neuro: normal (units ( unknown) date) speech and unknown) cognition, A+O x3, ambulatory, clear speech (unknown) (no (unknown) (unknown) Neurogenic pain (units (unknown) date) unknown) (unknown) (no (unknown) (unknown) New (units (unkno wn) date) unknown) (unknown) (no (unknown) (unknown) No Action (units (unkn own) date) unknown) (unknown) (no (unknown) (unknown) ONE (units (unkno wn) date) unknown) (unknown) (no (unknown) (unknown) ORDERED: URINE (units (unknown) date) CULTURE unknown) (unknown) (no (unknown) (unknown) [place]] (units (un known) date) unknown) (unknown) (no (unknown) (unknown) Ordered: (units (unkno wn) date) unknown) (unknown) (no (unknown) (unknown) Orders (units (unkno wn) date) unknown) (unknown) (no (unknown) (unknown) Organism 1 (units (unk nown) date) Methicillin Resis unknown) Staph Aureus (unknown) (no (unknown) (unknown) Oxycodone/Acetamin (units (unknown) date) ophen unknown) (Oxycodone/Apap 5/325 Prepack) 1 bottle MISC SEEINSTR (unknown) (no (unknown) (unknown) Oxygen Delivery (units (unknown) date) Method 07/30/22 unknown) 18:19 (unknown) (no (unknown) (unknown) Oxygen Delivery (units (unknown) date) Method Room Air unknown) (unknown) (no (unknown) (unknown) Oxygen Delivery (units (unknown) date) Method unknown) (unknown) (no (unknown) (unknown) PAGE 1 (units (unkno wn) date) unknown) (unknown) (no (unknown) (unknown) Patient (units (unkno wn) date) Disposition: Home unknown) (unknown) (no (unknown) (unknown) Patient History (units (unknown) date) unknown) (unknown) (no (unknown) (unknown) Patient: Eleazar (units ( unknown) date) Yann Jones MR#: [id number] unknown) (unknown) (no (unknown) (unknown) Phenazopyridine (units (unknown) date) HCl unknown) (Phenazopyridine 100 Mg Tablet) 100 mg PO NOW ONE (unknown) (no (unknown) (unknown) Please follow-up (units (unknown) date) with Danika García unknown) in case you have worsening and have her (unknown) (no (unknown) (unknown) Please follow-up (units (unknown) date) with your primary unknown) care provider for a test of cure, please have (unknown) (no (unknown) (unknown) Prescriptions: (units (unknown) date) unknown) (unknown) (no (unknown) (unknown) Previous Rx's (units ( unknown) date) unknown) (unknown) (no (unknown) (unknown) Procedure Result (units (unknown) date) Verified unknown) (unknown) (no (unknown) (unknown) Psych: mental (units ( unknown) date) status is grossly unknown) normal, congruent mood, normal affect, pleasant (unknown) (no (unknown) (unknown) Pulse Oximetry 95 (units (unknown) date) 07/30/22 18:19 unknown) (unknown) (no (unknown) (unknown) Pulse Oximetry 95 (units (unknown) date) 95 unknown) (unknown) (no (unknown) (unknown) Pulse Oximetry 96 (units (unknown) date) unknown) (unknown) (no (unknown) (unknown) Pulse Rate 106 H (units (unknown) date) 109 H unknown) (unknown) (no (unknown) (unknown) Pulse Rate 106 H (units (unknown) date) 07/30/22 18:19 unknown) (unknown) (no (unknown) (unknown) Pulse Rate 108 H (units (unknown) date) unknown) (unknown) (no (unknown) (unknown) Pulse Rate 97 H (units (unknown) date) unknown) (unknown) (no (unknown) (unknown) Pyridium, given (units (unknown) date) hydromorphone for unknown) his pain and symptoms. He was given a prepack (unknown) (no (unknown) (unknown) ROS Unobtainable: (units (unknown) date) All systems unknown) reviewed + are unremarkable except as noted in HPI (unknown) (no (unknown) (unknown) RUN DATE: 07/30/22 (units (unknown) date) Specimen Inquiry unknown) (unknown) (no (unknown) (unknown) RUN TIME: 1906 (units (unknown) date) unknown) (unknown) (no (unknown) (unknown) RUN TIME: 1928 (units (unknown) date) unknown) (unknown) (no (unknown) (unknown) Referrals: (units (unk nown) date) unknown) (unknown) (no (unknown) (unknown) Re07/23/22 (units ( unknown) date) Disch: Status: DEP unknown) ER (unknown) (no (unknown) (unknown) Related Data (units (u nknown) date) unknown) (unknown) (no (unknown) (unknown) Resource line at (units (unknown) date) [phone]. They unknown) will ask some questions about your medical (unknown) (no (unknown) (unknown) Respiratory Rate (units (unknown) date) 24 07/30/22 18:19 unknown) (unknown) (no (unknown) (unknown) Respiratory Rate (units (unknown) date) 24 unknown) (unknown) (no (unknown) (unknown) Respiratory Rate (units (unknown) date) unknown) (unknown) (no (unknown) (unknown) Respiratory: (units (u nknown) date) normal effort, able unknown) to speak in complete sentences, without (unknown) (no (unknown) (unknown) Review of Systems (units (unknown) date) unknown) (unknown) (no (unknown) (unknown) Reviewed vitals (units (unknown) date) signsand nursing unknown) notes. (unknown) (no (unknown) (unknown) Rx Instructions: (units (unknown) date) unknown) (unknown) (no (unknown) (unknown) SEEINSTR ONE (units (u nknown) date) unknown) (unknown) (no (unknown) (unknown) SOURCE: UA Reflex (units (unknown) date) ENTR: 07/24/22-0325 unknown) OTHR DR: Danika García (unknown) (no (unknown) (unknown) SPDESC: RECD: (units ( unknown) date) 07/23/22-2340 SUBM unknown) DR: Tian Hebert D.O. 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 unknown) (unknown) (no (unknown) (unknown) Signed By: (units (unk nown) date) unknown) (unknown) (no (unknown) (unknown) Site (units (unkno wn) date) unknown) (unknown) (no (unknown) (unknown) Skin: brisk (units (un known) date) capillary refill, unknown) without pallor or open wounds (unknown) (no (unknown) (unknown) Smoking Status: (units (unknown) date) Former smoker unknown) (unknown) (no (unknown) (unknown) Social History (units (unknown) date) (Reviewed 07/30/22 unknown) @ 19:09 by Za Harrell [facility]) (unknown) (no (unknown) (unknown) Source: patient (units (unknown) date) and EMS unknown) (unknown) (no (unknown) (unknown) Stated complaint: (units (unknown) date) UTI unknown) (unknown) (no (unknown) (unknown) Stop: 07/30/22 (units (unknown) date) 18:31 unknown) (unknown) (no (unknown) (unknown) Stop: 07/30/22 (units (unknown) date) 18:33 unknown) (unknown) (no (unknown) (unknown) Stop: 07/30/22 (units (unknown) date) 19:14 unknown) (unknown) (no (unknown) (unknown) Stop: 07/30/22 (units (unknown) date) 19:36 unknown) (unknown) (no (unknown) (unknown) Substance Use (units ( unknown) date) Type: does not use unknown) (unknown) (no (unknown) (unknown) Surgical History (units (unknown) date) (Reviewed 07/30/22 unknown) @ 19:09 by Za Harrell [facility]) (unknown) (no (unknown) (unknown) Take 1 capsule by (units (unknown) date) mouth twice a day unknown) for chronic back pain (unknown) (no (unknown) (unknown) Take 1 tablet by (units (unknown) date) mouth twice a day unknown) (unknown) (no (unknown) (unknown) Temperature 98.1 F (units (unknown) date) 07/30/22 18:19 unknown) (unknown) (no (unknown) (unknown) Temperature 98.1 F (units (unknown) date) unknown) (unknown) (no (unknown) (unknown) Temperature (units (un known) date) unknown) (unknown) (no (unknown) (unknown) This is a (units (unkn own) date) 47-year-old male unknown) who is brought in for evaluation by EMS of his (unknown) (no (unknown) (unknown) This is a (units (unkn own) date) 47-year-old male unknown) who returns to the emergency department after he was (unknown) (no (unknown) (unknown) Time Seen by (units (u nknown) date) Provider: 07/30/22 unknown) 18:24 (unknown) (no (unknown) (unknown) Trimethoprim/Sulfa (units (unknown) date) methoxazole unknown) (Trimeth/Sulfa 160/800 (Ds) Tablet) 1 tab PO NOW (unknown) (no (unknown) (unknown) Trimethoprim/Sulfa (units (unknown) date) methoxazole unknown) (Trimeth/Sulfa 160/800 Prepack) 1 bottle MISC (unknown) (no (unknown) (unknown) Urine Culture (units ( unknown) date) Final 07/26/22 unknown) (unknown) (no (unknown) (unknown) Vicodin and (units (un known) date) oxycodone. States unknown) that he has been p.o. tolerant, denies any (unknown) (no (unknown) (unknown) Vital Signs - 8 hr (units (unknown) date) unknown) (unknown) (no (unknown) (unknown) Vital Signs (units (un known) date) unknown) (unknown) (no (unknown) (unknown) Vital signs: (units (u nknown) date) unknown) (unknown) (no (unknown) (unknown) Danika García, (units (unknown) date) KIANNA [Primary Care unknown) Provider] (unknown) (no (unknown) (unknown) [ ] New medication (units (unknown) date) written as a paper unknown) prescription (unknown) (no (unknown) (unknown) [ ] No new (units (unk nown) date) medications given unknown) (unknown) (no (unknown) (unknown) [ x] New (units (unkno wn) date) medication unknown) prescriptions sent to your pharmacy: [ [facility] (unknown) (no (unknown) (unknown) acute abdominal (units (unknown) date) process, such as unknown) acute pyelonephritis, nephrolithiasis, (unknown) (no (unknown) (unknown) alcohol intake (units (unknown) date) frequency: unknown) holidays/special occasions only (unknown) (no (unknown) (unknown) alcohol intake: (units (unknown) date) current unknown) (unknown) (no (unknown) (unknown) and below (units (unkn own) date) unknown) (unknown) (no (unknown) (unknown) and cooperative (units (unknown) date) unknown) (unknown) (no (unknown) (unknown) and excoriation of (units (unknown) date) his groin and has unknown) history spinal cord tumor causing paralysis (unknown) (no (unknown) (unknown) applied (units (unkno wn) date) unknown) (unknown) (no (unknown) (unknown) appointment. Let (units (unknown) date) them know you were unknown) seen in the Emergency Department and that we (unknown) (no (unknown) (unknown) ask that you be (units (unknown) date) seen in follow up. unknown) We will electronically transmit a record of (unknown) (no (unknown) (unknown) bladder infection (units (unknown) date) which patient has unknown) not been able to sweet pickle maker his antibiotics for (unknown) (no (unknown) (unknown) buttocks. I hope (units (unknown) date) you feel better unknown) soon, please come back for any worsening (unknown) (no (unknown) (unknown) care completed, (units (unknown) date) barrier cream unknown) applied, patient was treated with Bactrim, (unknown) (no (unknown) (unknown) caregivers are (units (unknown) date) providing Gail unknown) care, afebrile (unknown) (no (unknown) (unknown) changes, this (units ( unknown) date) infection may take unknown) 1-2 weeks to clear. (unknown) (no (unknown) (unknown) close follow-up. (units (unknown) date) Recommend he have unknown) his urine tested for cure and follow-up with (unknown) (no (unknown) (unknown) concerned about (units (unknown) date) purulence drainage unknown) in his catheter today. 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 Patient denies any (unknown) (no (unknown) (unknown) draining clear (units (unknown) date) yellow urine at unknown) this point. Patient was provided BLS transfer (unknown) (no (unknown) (unknown) emergency (units (unkn own) date) department by his unknown) home health nurse who noticed ongoing purulence (unknown) (no (unknown) (unknown) every 6-8 hours as (units (unknown) date) needed for bladder unknown) pain, use Toradol every 8 hours instead of (unknown) (no (unknown) (unknown) extremities (units (un known) date) unknown) (unknown) (no (unknown) (unknown) fever, chills, (units (unknown) date) nausea vomiting, unknown) has allergy to morphine but states can tolerate (unknown) (no (unknown) (unknown) for medications. (units (unknown) date) Patient was also unknown) diagnosed COVID positive on 07/23/2022 states (unknown) (no (unknown) (unknown) gabapentin AdvReac (units (unknown) date) Shakiness Verified unknown) 10/16/21 09:17 (unknown) (no (unknown) (unknown) his PCP for a (units ( unknown) date) urine test at that unknown) point. Bowling catheter was irrigated and is (unknown) (no (unknown) (unknown) history and help (units (unknown) date) get you set up with unknown) a doctor in the community. (unknown) (no (unknown) (unknown) home and tolerated (units (unknown) date) well. His vital unknown) signs have improved, he was no longer (unknown) (no (unknown) (unknown) household members: (units (unknown) date) spouse, children, unknown) friend(s) and other (unknown) (no (unknown) (unknown) hydromorphone, and (units (unknown) date) Percocet for his unknown) pain with IV Toradol. His symptoms were (unknown) (no (unknown) (unknown) ibuprofen for (units ( unknown) date) additional pain unknown) relief, Percocet as needed for breakthrough pain. (unknown) (no (unknown) (unknown) improved (units (unkno wn) date) afterwards Patient unknown) remains p.o. tolerant. Serial abdominal exam (unknown) (no (unknown) (unknown) improved. Urinary (units (unknown) date) catheter was placed unknown) on 07/23/2022, without obstruction or (unknown) (no (unknown) (unknown) infection at that (units (unknown) date) point. unknown) (unknown) (no (unknown) (unknown) it went to the (units (unknown) date) wrong pharmacy unknown) after his visit on 07/23/2022. He was sent to the (unknown) (no (unknown) (unknown) ketorolac 10 mg (units (unknown) date) tablet 10 mg PO Q8H unknown) PRN pain #14 tabs 07/30/22 (unknown) (no (unknown) (unknown) ketorolac 10 mg (units (unknown) date) tablet unknown) (unknown) (no (unknown) (unknown) leave on most (units ( unknown) date) painful area for 12 unknown) hrs (unknown) (no (unknown) (unknown) lidocaine 5 % (units ( unknown) date) topical patch 1 unknown) patch topical DAILY #15 ea 07/11/22 (unknown) (no (unknown) (unknown) lidocaine (units (unkn own) date) [Lidoderm] 5 % unknown) adhesive patch,medicated (unknown) (no (unknown) (unknown) medications will (units (unknown) date) be picked up unknown) tomorrow from [facility] in [place], patient is (unknown) (no (unknown) (unknown) metoprolol (units (unk nown) date) tartrate 50 mg unknown) tablet 50 mg PO BID 10/15/21 10/15/21 (unknown) (no (unknown) (unknown) metoprolol (units (unk nown) date) tartrate 50 mg unknown) tablet (unknown) (no (unknown) (unknown) mg tablet (units (unkn own) date) (Percocet) unknown) (unknown) (no (unknown) (unknown) mg-trimethoprim (units (unknown) date) 160 mg tablet unknown) (unknown) (no (unknown) (unknown) morphine Allergy (units (unknown) date) Nightmare Verified unknown) 10/16/21 09:17 (unknown) (no (unknown) (unknown) new symptoms since (units (unknown) date) his last hospital unknown) visit, denies fever, chills, nausea (unknown) (no (unknown) (unknown) nontoxic appearing, (units (unknown) date) his symptoms and unknown) vital signs improved on recheck, he is p.o. (unknown) (no (unknown) (unknown) of Bactrim and (units (unknown) date) Percocet so he has unknown) medications for tomorrow morning. His (unknown) (no (unknown) (unknown) of bilateral lower (units (unknown) date) extremities. unknown) Patient wears chronic Bowling catheter. Denies (unknown) (no (unknown) (unknown) or torsion. (units (un known) date) Extensive unknown) conversation about ER return precautions and need for (unknown) (no (unknown) (unknown) other complicating (units (unknown) date) factor. Catheter unknown) was Left in place, irrigated using sterile (unknown) (no (unknown) (unknown) oxycodone-acetamin (units (unknown) date) ophen 5 mg-325 1 unknown) tab PO Q8H PRN pain #14 tabs 07/30/22 (unknown) (no (unknown) (unknown) oxycodone-acetamin (units (unknown) date) ophen [Percocet] unknown) 5-325 mg tablet (unknown) (no (unknown) (unknown) pancreatitis, (units ( unknown) date) perforated viscus, unknown) atypical appendicitis, colitis, diverticulitis (unknown) (no (unknown) (unknown) peritoneal signs (units (unknown) date) on abdominal exam. unknown) His pain was treated, he was given Bactrim, (unknown) (no (unknown) (unknown) phenazopyridine (units (unknown) date) 100 mg tablet 100 unknown) mg PO Q8H PRN bladder pain #10 07/30/22 (unknown) (no (unknown) (unknown) phenazopyridine (units (unknown) date) [Pyridium] 100 mg unknown) tablet (unknown) (no (unknown) (unknown) pregabalin 300 mg (units (unknown) date) capsule (Lyrica) unknown) 300 mg PO BID 10/15/21 10/15/21 (unknown) (no (unknown) (unknown) pregabalin (units (unk nown) date) [Lyrica] 300 mg unknown) capsule (unknown) (no (unknown) (unknown) progressive (units (unk nown) date) symptoms of unknown) worsening, denies any symptoms of COVID at this time. No (unknown) (no (unknown) (unknown) provider apply a (units (unknown) date) zinc barrier cream unknown) to all areas of redness of groin and (unknown) (no (unknown) (unknown) region. (units (unkno wn) date) unknown) (unknown) (no (unknown) (unknown) showing (units (unkno wn) date) sensitivity to unknown) Bactrim which he was prescribed but unable to sweet pickle maker as (unknown) (no (unknown) (unknown) start these (units (un known) date) antibiotics, have unknown) your medications picked up watery, use Pyridium (unknown) (no (unknown) (unknown) sulfamethoxazole (units (unknown) date) 800 1 tab PO BID 10 unknown) days #20 tabs 07/24/22 (unknown) (no (unknown) (unknown) sulfamethoxazole (units (unknown) date) 800 1 tab PO Q12H unknown) 10 days #20 tabs 07/30/22 (unknown) (no (unknown) (unknown) sulfamethoxazole-t (units (unknown) date) rimethoprim unknown) [Bactrim DS] 800-160 mg tablet (unknown) (no (unknown) (unknown) tachycardic at (units (unknown) date) time of discharge. unknown) I am sending MyChart prior to documentation (unknown) (no (unknown) (unknown) technique. (units (unk nown) date) unknown) (unknown) (no (unknown) (unknown) tenderness or (units ( unknown) date) exquisite unknown) tenderness with exam. (unknown) (no (unknown) (unknown) test your urine (units (unknown) date) for infection, unknown) refer you to urology if you have ongoing (unknown) (no (unknown) (unknown) that he was (units (un known) date) diagnosed positive unknown) with on 07/23/2022. On chart review it appears (unknown) (no (unknown) (unknown) that his symptoms (units (unknown) date) of COVID have unknown) improved. 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 Patient denies any (unknown) (no (unknown) (unknown) vomiting, flank (units (unknown) date) pain, complains of unknown) suprapubic tenderness and pressure. (unknown) (no (unknown) (unknown) vomiting. He was (units (unknown) date) given 1 L of normal unknown) saline, Bowling catheter was irrigated, gail (unknown) (no (unknown) (unknown) weakness (units (unkno wn) date) unknown) (unknown) (no (unknown) (unknown) wheezing, stridor, (units (unknown) date) or abnormal breath unknown) sounds. No retractions or tachypnea. (unknown) (no (unknown) (unknown) without increase (units (unknown) date) in abdominal pain. unknown) Given history and exam, low suspicion for (unknown) (no (unknown) (unknown) without (units (unkno wn) date) obstruction, Gail unknown) care completed without new wounds, barrier ointment (unknown) (no (unknown) (unknown) worsening pain, (units (unknown) date) persistent vomiting unknown) or other bothersome symptoms] (unknown) (no (unknown) (unknown) your Bowling (units (unk nown) date) catheter changed at unknown) that point. Please stay hydrated, have your care (unknown) (no (unknown) (unknown) zinc oxide 15 % (units (unknown) date) cream unknown) (unknown) (no (unknown) (unknown) zinc oxide 15 % (units (unknown) date) topical cream 1 unknown) applic topical BID #99 grams 07/30/22 Result panel [id number] (unknown) (no (unknown) (unknown) (no value) (units (unk nown) date) unknown) (unknown) (no (unknown) (unknown) #: [id number] (units (un known) date) unknown) (unknown) (no (unknown) (unknown) <Eric Workman (units (unknown) date) - Last Filed: unknown) 07/31/22 05:27> (unknown) (no (unknown) (unknown) <Electronically (units (unknown) date) signed by Eric Workman MD> (unknown) (no (unknown) (unknown) <Electronically (units (unknown) date) signed by Za brito) Husam Harrell> (unknown) (no (unknown) (unknown) <Za Harrell, (units (unknown) date) GENIE - Last Filed: unknown) 07/30/22 19:39> (unknown) (no (unknown) (unknown) (Bactrim DS) (units (u nknown) date) unknown) (unknown) (no (unknown) (unknown) (Lidoderm) (units (unk nown) date) unknown) (unknown) (no (unknown) (unknown) (Pyridium) tabs (units (unknown) date) unknown) (unknown) (no (unknown) (unknown) * Ciprofloxacin (units (unknown) date) >=8 R unknown) (unknown) (no (unknown) (unknown) * Daptomycin 0.25 (units (unknown) date) S unknown) (unknown) (no (unknown) (unknown) * Doxycycline (units ( unknown) date) <=0.5 S unknown) (unknown) (no (unknown) (unknown) * Gentamicin <=0.5 (units (unknown) date) S unknown) (unknown) (no (unknown) (unknown) * Levofloxacin 4 I (units (unknown) date) unknown) (unknown) (no (unknown) (unknown) * Linezolid 2 S (units (unknown) date) unknown) (unknown) (no (unknown) (unknown) * Moxifloxacin 1 S (units (unknown) date) unknown) (unknown) (no (unknown) (unknown) * Nitrofurantoin (units (unknown) date) <=16 S unknown) (unknown) (no (unknown) (unknown) * Oxacillin Jacob (units (unknown) date) >=4 R unknown) (unknown) (no (unknown) (unknown) * Rifampin <=0.5 S (units (unknown) date) unknown) (unknown) (no (unknown) (unknown) * Tetracycline <=1 (units (unknown) date) S unknown) (unknown) (no (unknown) (unknown) * (units (unkno wn) date) Trimethoprim/Sulfam unknown) ethoxazole <=10 S (unknown) (no (unknown) (unknown) * Vancomycin 1 S (units (unknown) date) unknown) (unknown) (no (unknown) (unknown) *If you do not (units (unknown) date) have a primary care unknown) provider please contact the [facility] (unknown) (no (unknown) (unknown) *Please continue (units (unknown) date) to take your unknown) regular medications as directed. (unknown) (no (unknown) (unknown) *Please follow up (units (unknown) date) with your primary unknown) care provider in 2-3 days, call for an (unknown) (no (unknown) (unknown) *Return to (units (unk nown) date) Emergency unknown) Department if you should have any new, worsening or (unknown) (no (unknown) (unknown) *What to do: (units (u nknown) date) unknown) (unknown) (no (unknown) (unknown) *You have been (units (unknown) date) diagnosed with unknown) worsening bladder infection, you are positive for (unknown) (no (unknown) (unknown) --------- (units (unkn own) date) unknown) (unknown) (no (unknown) (unknown) [id number] (units (unkno wn) date) unknown) (unknown) (no (unknown) (unknown) 0758 (units (unkno wn) date) unknown) (unknown) (no (unknown) (unknown) 1 applic topical (units (unknown) date) BID Qty: 99 0RF unknown) (unknown) (no (unknown) (unknown) 1 patch TOP DAILY (units (unknown) date) Qty: 15 0RF unknown) (unknown) (no (unknown) (unknown) 1 tab PO BID 10 (units (unknown) date) Days Qty: 20 0RF unknown) (unknown) (no (unknown) (unknown) 1 tab PO Q12H 10 (units (unknown) date) Days Qty: 20 0RF unknown) (unknown) (no (unknown) (unknown) 1 tab PO Q8H PRN (units (unknown) date) (Reason: pain) Qty: unknown) 14 0RF (unknown) (no (unknown) (unknown) 1. Methicillin (units (unknown) date) Resis Staph Aureus unknown) (unknown) (no (unknown) (unknown) 10 mg PO Q8H PRN (units (unknown) date) (Reason: pain) Qty: unknown) 14 0RF (unknown) (no (unknown) (unknown) 100 mg PO Q8H PRN (units (unknown) date) (Reason: bladder unknown) pain) Qty: 10 0RF (unknown) (no (unknown) (unknown) 07/30/22 193 (units ( unknown) date) unknown) (unknown) (no (unknown) (unknown) 07/30/22 (units (unkno wn) date) unknown) (unknown) (no (unknown) (unknown) 07/31/22 0528 (units ( unknown) date) unknown) (unknown) (no (unknown) (unknown) [address] [place] [address], (units (unknown) date) [place], [address] unknown) (unknown) (no (unknown) (unknown) 18:19 07/30/22 (units (unknown) date) unknown) (unknown) (no (unknown) (unknown) 18:24 07/30/22 (units (unknown) date) unknown) (unknown) (no (unknown) (unknown) 18:25 (units (unkno wn) date) unknown) (unknown) (no (unknown) (unknown) 18:30 07/30/22 (units (unknown) date) unknown) (unknown) (no (unknown) (unknown) 19:00 (units (unkno wn) date) unknown) (unknown) (no (unknown) (unknown) 300 mg PO BID (units ( unknown) date) unknown) (unknown) (no (unknown) (unknown) 50 mg PO BID (units (u nknown) date) unknown) (unknown) (no (unknown) (unknown) 99% air with (units (u nknown) date) respirations 20 per unknown) minute, states that his pain is markedly (unknown) (no (unknown) (unknown) (units (unknown) date) Unit#: [id number] unknown) : 1975Location: ED (unknown) (no (unknown) (unknown) Action to follow (units (unknown) date) No Further Workup unknown) (unknown) (no (unknown) (unknown) Activity (units (unkno wn) date) Restrictions/Additi unknown) onal Instructions: (unknown) (no (unknown) (unknown) Age/Sex: 47 / M (units (unknown) date) unknown) (unknown) (no (unknown) (unknown) Allergies (units (unkn own) date) unknown) (unknown) (no (unknown) (unknown) Allergy/AdvReac (units (unknown) date) Type Severity unknown) Reaction Status Date / Time (unknown) (no (unknown) (unknown) Back pain (units (unkn own) date) unknown) (unknown) (no (unknown) (unknown) Bactrim which (units ( unknown) date) patient was unknown) prescribed but did not sweet pickle maker due to wrong pharmacy (unknown) (no (unknown) (unknown) Blood Pressure (units (unknown) date) 152/100 H 07/30/22 unknown) 18:19 (unknown) (no (unknown) (unknown) Blood Pressure (units (unknown) date) 152/100 H 133/97 H unknown) (unknown) (no (unknown) (unknown) Blood Pressure (units (unknown) date) 154/106 H 159/115 H unknown) (unknown) (no (unknown) (unknown) Blood Pressure (units (unknown) date) unknown) (unknown) (no (unknown) (unknown) C (units (unkno wn) date) unknown) (unknown) (no (unknown) (unknown) COVID, MRSA, and (units (unknown) date) your urine unknown) infection appears to have gotten worse. Please (unknown) (no (unknown) (unknown) Called To: (units (unk nown) date) 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 unknown) (unknown) (no (unknown) (unknown) Cardiovascular: (units (unknown) date) Tachycardic rate unknown) and regular rhythm, no peripheral edema, warm (unknown) (no (unknown) (unknown) Chief complaint: (units (unknown) date) Urogenital-Male unknown) (unknown) (no (unknown) (unknown) Clinical (units (unkno wn) date) Impression: unknown) (unknown) (no (unknown) (unknown) [place] Count (units (u nknown) date) >100,000 CFU/ml unknown) (unknown) (no (unknown) (unknown) Cosign (units (unkno wn) date) unknown) (unknown) (no (unknown) (unknown) Course (units (unkno wn) date) unknown) (unknown) (no (unknown) (unknown) Stephan Issa D.O. (units (unknown) date) unknown) (unknown) (no (unknown) (unknown) : 1975 (units (unknown) date) Acct:[id number] unknown) (unknown) (no (unknown) (unknown) Date of Service: (units (unknown) date) 07/30/22 unknown) (unknown) (no (unknown) (unknown) Departure (units (unkn own) date) unknown) (unknown) (no (unknown) (unknown) Discharge Plan (units (unknown) date) unknown) (unknown) (no (unknown) (unknown) Discontinued (units (u nknown) date) Medications unknown) (unknown) (no (unknown) (unknown) Documented By: CTS (units (unknown) date) unknown) (unknown) (no (unknown) (unknown) Documented By: KM (units (unknown) date) unknown) (unknown) (no (unknown) (unknown) ED Attending (units (u nknown) date) Cosignature unknown) Attestation: (unknown) (no (unknown) (unknown) ER Physician: (units ( unknown) date) Za Harrell unknown) GENIE (unknown) (no (unknown) (unknown) Emergency Report (units (unknown) date) unknown) (unknown) (no (unknown) (unknown) Exam Narrative: (units (unknown) date) unknown) (unknown) (no (unknown) (unknown) Exam (units (unkno wn) date) unknown) (unknown) (no (unknown) (unknown) FAX TO: (units (unkno wn) date) unknown) (unknown) (no (unknown) (unknown) Family History (units (unknown) date) (Reviewed 07/30/22 unknown) @ 19:09 by GENIE Da Silva) (unknown) (no (unknown) (unknown) Father CVA (units (unk nown) date) (cerebral vascular unknown) accident) (unknown) (no (unknown) (unknown) Functional (units (unk nown) date) paraparesis unknown) (unknown) (no (unknown) (unknown) GI: abdomen soft, (units (unknown) date) nontender to unknown) palpation, nondistended, without masses, rebound (unknown) (no (unknown) (unknown) : Catheter (units (u nknown) date) draining purulence unknown) drainage, this was irrigated by bedside nurse, (unknown) (no (unknown) (unknown) General (units (unkno wn) date) unknown) (unknown) (no (unknown) (unknown) General: (units (unkno wn) date) cooperative, unknown) appears uncomfortable, complains of pain, in no acute (unknown) (no (unknown) (unknown) HEENT: symmetrical (units (unknown) date) facial expressions, unknown) moist mucous membranes (unknown) (no (unknown) (unknown) HPI - Male (units (unk nown) date) Genitourinary unknown) (unknown) (no (unknown) (unknown) HPI Narrative: (units (unknown) date) unknown) (unknown) (no (unknown) (unknown) Have provided the (units (unknown) date) barrier cream to unknown) areas of redness in your groin and buttock (unknown) (no (unknown) (unknown) History of Present (units (unknown) date) Illness unknown) (unknown) (no (unknown) (unknown) History of spinal (units (unknown) date) surgery unknown) (unknown) (no (unknown) (unknown) History of (units (unk nown) date) tonsillectomy unknown) (unknown) (no (unknown) (unknown) Home Medications (units (unknown) date) unknown) (unknown) (no (unknown) (unknown) Hydromorphone HCl (units (unknown) date) (Hydromorphone 0.5 unknown) Mg Inj) 0.5 mg IV NOW ONE (unknown) (no (unknown) (unknown) Hypertension (units (u nknown) date) unknown) (unknown) (no (unknown) (unknown) I was immediately (units (unknown) date) available in the unknown) department for consultation. ?This (unknown) (no (unknown) (unknown) Infection, DI for (units (unknown) date) Urinary Tract unknown) Infection (UTI) (unknown) (no (unknown) (unknown) Initial Vital (units ( unknown) date) Signs unknown) (unknown) (no (unknown) (unknown) Initial Vital (units ( unknown) date) Signs: unknown) (unknown) (no (unknown) (unknown) Instructions: How (units (unknown) date) to Care for Your unknown) Bowling Catheter -- Male, Urinary Tract (unknown) (no (unknown) (unknown) [facility] (units (unknown) date) [address] unknown) [place] [address] (unknown) (no (unknown) (unknown) [facility] (units (unknown) date) Laboratory CLIA ID unknown) [id number] (unknown) (no (unknown) (unknown) Ketorolac (units (unkn own) date) Tromethamine unknown) (Ketorolac 30 Mg/Ml Vial) 15 mg IV NOW ONE (unknown) (no (unknown) (unknown) Lab Data (units (unkno wn) date) unknown) (unknown) (no (unknown) (unknown) Lab results (units (un known) date) narrative: unknown) (unknown) (no (unknown) (unknown) Label Comments: (units (unknown) date) unknown) (unknown) (no (unknown) (unknown) Last Admin: (units (un known) date) 07/30/22 18:44 unknown) Dose: 0.5 mg (unknown) (no (unknown) (unknown) Last Admin: (units (un known) date) 07/30/22 18:44 unknown) Dose: 1 tab (unknown) (no (unknown) (unknown) Last Admin: (units (un known) date) 07/30/22 18:44 unknown) Dose: 100 mg (unknown) (no (unknown) (unknown) Last Admin: (units (un known) date) 07/30/22 18:44 unknown) Dose: 15 mg (unknown) (no (unknown) (unknown) Last Admin: (units (un known) date) 07/30/22 19:38 unknown) Dose: 1 bottle (unknown) (no (unknown) (unknown) Last Admin: (units (un known) date) 07/30/22 19:38 unknown) Dose: Not Given (unknown) (no (unknown) (unknown) Last Admin: (units (un known) date) 07/30/22 19:42 unknown) Dose: 1 tab (unknown) (no (unknown) (unknown) M.I.C. RX (units (unkn own) date) unknown) (unknown) (no (unknown) (unknown) MDM - Male (units (unk nown) date) Genitourinary unknown) (unknown) (no (unknown) (unknown) MDM Narrative (units ( unknown) date) unknown) (unknown) (no (unknown) (unknown) MRSA (methicillin (units (unknown) date) resistant staph unknown) aureus) culture positive, Acute UTI (unknown) (no (unknown) (unknown) MRSA? YES (units (unkn own) date) unknown) (unknown) (no (unknown) (unknown) MSK: moves upper (units (unknown) date) extremities without unknown) deficit, neurovascularly intact, no new (unknown) (no (unknown) (unknown) Medical History (units (unknown) date) (Reviewed 07/30/22 unknown) @ 19:09 by Za Harrell [facility]) (unknown) (no (unknown) (unknown) Medical decision (units (unknown) date) making narrative: unknown) (unknown) (no (unknown) (unknown) Medication (units (unk nown) date) Instructions unknown) Recorded Confirmed (unknown) (no (unknown) (unknown) Medication (units (unk nown) date) Instructions unknown) Recorded (unknown) (no (unknown) (unknown) Mode of arrival: (units (unknown) date) EMS unknown) (unknown) (no (unknown) (unknown) Mother Myocardial (units (unknown) date) infarct unknown) (unknown) (no (unknown) (unknown) Name: Eleazar (units (unk nown) date) Yann Jones Age/Sex: unknown) 47/M Attend Dr: (unknown) (no (unknown) (unknown) Narrative (units (unkn own) date) unknown) (unknown) (no (unknown) (unknown) Neuro: normal (units ( unknown) date) speech and unknown) cognition, A+O x3, ambulatory, clear speech (unknown) (no (unknown) (unknown) Neurogenic pain (units (unknown) date) unknown) (unknown) (no (unknown) (unknown) New (units (unkno wn) date) unknown) (unknown) (no (unknown) (unknown) No Action (units (unkn own) date) unknown) (unknown) (no (unknown) (unknown) ONE (units (unkno wn) date) unknown) (unknown) (no (unknown) (unknown) ORDERED: URINE (units (unknown) date) CULTURE unknown) (unknown) (no (unknown) (unknown) [place]] (units (un known) date) unknown) (unknown) (no (unknown) (unknown) Ordered: (units (unkno wn) date) unknown) (unknown) (no (unknown) (unknown) Orders (units (unkno wn) date) unknown) (unknown) (no (unknown) (unknown) Organism 1 (units (unk nown) date) Methicillin Resis unknown) Staph Aureus (unknown) (no (unknown) (unknown) Oxycodone/Acetamin (units (unknown) date) ophen unknown) (Oxycodone/Apap 5/325 Prepack) 1 bottle MISC SEEINSTR (unknown) (no (unknown) (unknown) Oxygen Delivery (units (unknown) date) Method 07/30/22 unknown) 18:19 (unknown) (no (unknown) (unknown) Oxygen Delivery (units (unknown) date) Method Room Air unknown) (unknown) (no (unknown) (unknown) Oxygen Delivery (units (unknown) date) Method unknown) (unknown) (no (unknown) (unknown) PAGE 1 (units (unkno wn) date) unknown) (unknown) (no (unknown) (unknown) Patient (units (unkno wn) date) Disposition: Home unknown) (unknown) (no (unknown) (unknown) Patient History (units (unknown) date) unknown) (unknown) (no (unknown) (unknown) Patient: Eleazar (units ( unknown) date) Yann MR#: [id number] unknown) (unknown) (no (unknown) (unknown) Phenazopyridine (units (unknown) date) HCl unknown) (Phenazopyridine 100 Mg Tablet) 100 mg PO NOW ONE (unknown) (no (unknown) (unknown) Please follow-up (units (unknown) date) with Danika García unknown) in case you have worsening and have her (unknown) (no (unknown) (unknown) Please follow-up (units (unknown) date) with your primary unknown) care provider for a test of cure, please have (unknown) (no (unknown) (unknown) Prescriptions: (units (unknown) date) unknown) (unknown) (no (unknown) (unknown) Previous Rx's (units ( unknown) date) unknown) (unknown) (no (unknown) (unknown) Procedure Result (units (unknown) date) Verified unknown) (unknown) (no (unknown) (unknown) Psych: mental (units ( unknown) date) status is grossly unknown) normal, congruent mood, normal affect, pleasant (unknown) (no (unknown) (unknown) Pulse Oximetry 95 (units (unknown) date) 07/30/22 18:19 unknown) (unknown) (no (unknown) (unknown) Pulse Oximetry 95 (units (unknown) date) 95 unknown) (unknown) (no (unknown) (unknown) Pulse Oximetry 96 (units (unknown) date) unknown) (unknown) (no (unknown) (unknown) Pulse Rate 106 H (units (unknown) date) 109 H unknown) (unknown) (no (unknown) (unknown) Pulse Rate 106 H (units (unknown) date) 07/30/22 18:19 unknown) (unknown) (no (unknown) (unknown) Pulse Rate 108 H (units (unknown) date) unknown) (unknown) (no (unknown) (unknown) Pulse Rate 97 H (units (unknown) date) unknown) (unknown) (no (unknown) (unknown) Pyridium, given (units (unknown) date) hydromorphone for unknown) his pain and symptoms. He was given a prepack (unknown) (no (unknown) (unknown) ROS Unobtainable: (units (unknown) date) All systems unknown) reviewed + are unremarkable except as noted in HPI (unknown) (no (unknown) (unknown) RUN DATE: 07/30/22 (units (unknown) date) Specimen Inquiry unknown) (unknown) (no (unknown) (unknown) RUN TIME: 190 (units (unknown) date) unknown) (unknown) (no (unknown) (unknown) RUN TIME: 192 (units (unknown) date) unknown) (unknown) (no (unknown) (unknown) Referrals: (units (unk nown) date) unknown) (unknown) (no (unknown) (unknown) Re07/23/22 (units ( unknown) date) Disch: Status: DEP unknown) ER (unknown) (no (unknown) (unknown) Related Data (units (u nknown) date) unknown) (unknown) (no (unknown) (unknown) Resource line at (units (unknown) date) [phone]. They unknown) will ask some questions about your medical (unknown) (no (unknown) (unknown) Respiratory Rate (units (unknown) date) 24 07/30/22 18:19 unknown) (unknown) (no (unknown) (unknown) Respiratory Rate (units (unknown) date) 24 unknown) (unknown) (no (unknown) (unknown) Respiratory Rate (units (unknown) date) unknown) (unknown) (no (unknown) (unknown) Respiratory: (units (u nknown) date) normal effort, able unknown) to speak in complete sentences, without (unknown) (no (unknown) (unknown) Review of Systems (units (unknown) date) unknown) (unknown) (no (unknown) (unknown) Reviewed vitals (units (unknown) date) signsand nursing unknown) notes. (unknown) (no (unknown) (unknown) Rx Instructions: (units (unknown) date) unknown) (unknown) (no (unknown) (unknown) SEEINSTR ONE (units (u nknown) date) unknown) (unknown) (no (unknown) (unknown) SOURCE: UA Reflex (units (unknown) date) ENTR: 07/24/22-0325 unknown) OTHR DR: Danika García (unknown) (no (unknown) (unknown) SPDESC: RECD: (units ( unknown) date) 07/23/22-2340 SUBM unknown) DR: Tian Hebert D.O. 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 unknown) (unknown) (no (unknown) (unknown) Signed By: (units (unk nown) date) unknown) (unknown) (no (unknown) (unknown) Site (units (unkno wn) date) unknown) (unknown) (no (unknown) (unknown) Skin: brisk (units (un known) date) capillary refill, unknown) without pallor or open wounds (unknown) (no (unknown) (unknown) Smoking Status: (units (unknown) date) Former smoker unknown) (unknown) (no (unknown) (unknown) Social History (units (unknown) date) (Reviewed 07/30/22 unknown) @ 19:09 by GENIE Da Silva) (unknown) (no (unknown) (unknown) Source: patient (units (unknown) date) and EMS unknown) (unknown) (no (unknown) (unknown) Stated complaint: (units (unknown) date) UTI unknown) (unknown) (no (unknown) (unknown) Stop: 07/30/22 (units (unknown) date) 18:31 unknown) (unknown) (no (unknown) (unknown) Stop: 07/30/22 (units (unknown) date) 18:33 unknown) (unknown) (no (unknown) (unknown) Stop: 07/30/22 (units (unknown) date) 19:14 unknown) (unknown) (no (unknown) (unknown) Stop: 07/30/22 (units (unknown) date) 19:36 unknown) (unknown) (no (unknown) (unknown) Substance Use (units ( unknown) date) Type: does not use unknown) (unknown) (no (unknown) (unknown) Supervised by (units ( unknown) date) Eric Workman MD unknown) (unknown) (no (unknown) (unknown) Surgical History (units (unknown) date) (Reviewed 07/30/22 unknown) @ 19:09 by GENIE Da Silva) (unknown) (no (unknown) (unknown) Take 1 capsule by (units (unknown) date) mouth twice a day unknown) for chronic back pain (unknown) (no (unknown) (unknown) Take 1 tablet by (units (unknown) date) mouth twice a day unknown) (unknown) (no (unknown) (unknown) Temperature 98.1 F (units (unknown) date) 07/30/22 18:19 unknown) (unknown) (no (unknown) (unknown) Temperature 98.1 F (units (unknown) date) unknown) (unknown) (no (unknown) (unknown) Temperature (units (un known) date) unknown) (unknown) (no (unknown) (unknown) This is a (units (unkn own) date) 47-year-old male unknown) who is brought in for evaluation by EMS of his (unknown) (no (unknown) (unknown) This is a (units (unkn own) date) 47-year-old male unknown) who returns to the emergency department after he was (unknown) (no (unknown) (unknown) Time Seen by (units (u nknown) date) Provider: 07/30/22 unknown) 18:24 (unknown) (no (unknown) (unknown) Trimethoprim/Sulfa (units (unknown) date) methoxazole unknown) (Trimeth/Sulfa 160/800 (Ds) Tablet) 1 tab PO NOW (unknown) (no (unknown) (unknown) Trimethoprim/Sulfa (units (unknown) date) methoxazole unknown) (Trimeth/Sulfa 160/800 Prepack) 1 bottle MISC (unknown) (no (unknown) (unknown) Urine Culture (units ( unknown) date) Final 07/26/22 unknown) (unknown) (no (unknown) (unknown) Vicodin and (units (un known) date) oxycodone. States unknown) that he has been p.o. tolerant, denies any (unknown) (no (unknown) (unknown) Visit Report (units (u nknown) date) Forms: Patient unknown) Portal/API (unknown) (no (unknown) (unknown) Vital Signs - 8 hr (units (unknown) date) unknown) (unknown) (no (unknown) (unknown) Vital Signs (units (un known) date) unknown) (unknown) (no (unknown) (unknown) Vital signs: (units (u nknown) date) unknown) (unknown) (no (unknown) (unknown) Danika García, (units (unknown) date) [facility] [Primary Care unknown) Provider] (unknown) (no (unknown) (unknown) [ ] New medication (units (unknown) date) written as a paper unknown) prescription (unknown) (no (unknown) (unknown) [ ] No new (units (unk nown) date) medications given unknown) (unknown) (no (unknown) (unknown) [ x] New (units (unkno wn) date) medication unknown) prescriptions sent to your pharmacy: [ Luke (unknown) (no (unknown) (unknown) acute abdominal (units (unknown) date) process, such as unknown) acute pyelonephritis, nephrolithiasis, (unknown) (no (unknown) (unknown) alcohol intake (units (unknown) date) frequency: unknown) holidays/special occasions only (unknown) (no (unknown) (unknown) alcohol intake: (units (unknown) date) current unknown) (unknown) (no (unknown) (unknown) and below (units (unkn own) date) unknown) (unknown) (no (unknown) (unknown) and cooperative (units (unknown) date) unknown) (unknown) (no (unknown) (unknown) and excoriation of (units (unknown) date) his groin and has unknown) history spinal cord tumor causing paralysis (unknown) (no (unknown) (unknown) applied (units (unkno wn) date) unknown) (unknown) (no (unknown) (unknown) appointment. Let (units (unknown) date) them know you were unknown) seen in the Emergency Department and that we (unknown) (no (unknown) (unknown) ask that you be (units (unknown) date) seen in follow up. unknown) We will electronically transmit a record of (unknown) (no (unknown) (unknown) bladder infection (units (unknown) date) which patient has unknown) not been able to sweet pickle maker his antibiotics for (unknown) (no (unknown) (unknown) buttocks. I hope (units (unknown) date) you feel better unknown) soon, please come back for any worsening (unknown) (no (unknown) (unknown) care completed, (units (unknown) date) barrier cream unknown) applied, patient was treated with Bactrim, (unknown) (no (unknown) (unknown) caregivers are (units (unknown) date) providing Gail unknown) care, afebrile (unknown) (no (unknown) (unknown) changes, this (units ( unknown) date) infection may take unknown) 1-2 weeks to clear. (unknown) (no (unknown) (unknown) close follow-up. (units (unknown) date) Recommend he have unknown) his urine tested for cure and follow-up with (unknown) (no (unknown) (unknown) concerned about (units (unknown) date) purulence drainage unknown) in his catheter today. Patient has erythema (unknown) (no (unknown) (unknown) concerning (units (unk nown) date) symptoms, such as unknown) [fever greater than 101 F, shaking chills, (unknown) (no (unknown) (unknown) diagnosed with (units (unknown) date) COVID-19, acute unknown) cystitis with MRSA growing in his urine culture (unknown) (no (unknown) (unknown) disease latest but (units (unknown) date) said exam, his unknown) heart rate was 92 and pulse oximeter reading (unknown) (no (unknown) (unknown) distress, well (units (unknown) date) groomed, paralysis unknown) of lower extremities at baseline, bedside (unknown) (no (unknown) (unknown) documentation has (units (unknown) date) been reviewed and I unknown) agree with assessment and plan. (unknown) (no (unknown) (unknown) drainage in his (units (unknown) date) Bowling catheter with unknown) suprapubic tenderness. Patient denies any (unknown) (no (unknown) (unknown) draining clear (units (unknown) date) yellow urine at unknown) this point. Patient was provided BLS transfer (unknown) (no (unknown) (unknown) emergency (units (unkn own) date) department by his unknown) home health nurse who noticed ongoing purulence (unknown) (no (unknown) (unknown) every 6-8 hours as (units (unknown) date) needed for bladder unknown) pain, use Toradol every 8 hours instead of (unknown) (no (unknown) (unknown) extremities (units (un known) date) unknown) (unknown) (no (unknown) (unknown) fever, chills, (units (unknown) date) nausea vomiting, unknown) has allergy to morphine but states can tolerate (unknown) (no (unknown) (unknown) for medications. (units (unknown) date) Patient was also unknown) diagnosed COVID positive on 07/23/2022 states (unknown) (no (unknown) (unknown) gabapentin AdvReac (units (unknown) date) Shakiness Verified unknown) 10/16/21 09:17 (unknown) (no (unknown) (unknown) his PCP for a (units ( unknown) date) urine test at that unknown) point. Bowling catheter was irrigated and is (unknown) (no (unknown) (unknown) history and help (units (unknown) date) get you set up with unknown) a doctor in the community. (unknown) (no (unknown) (unknown) home and tolerated (units (unknown) date) well. His vital unknown) signs have improved, he was no longer (unknown) (no (unknown) (unknown) household members: (units (unknown) date) spouse, children, unknown) friend(s) and other (unknown) (no (unknown) (unknown) hydromorphone, and (units (unknown) date) Percocet for his unknown) pain with IV Toradol. His symptoms were (unknown) (no (unknown) (unknown) ibuprofen for (units ( unknown) date) additional pain unknown) relief, Percocet as needed for breakthrough pain. (unknown) (no (unknown) (unknown) improved (units (unkno wn) date) afterwards Patient unknown) remains p.o. tolerant. Serial abdominal exam (unknown) (no (unknown) (unknown) improved. Urinary (units (unknown) date) catheter was placed unknown) on 07/23/2022, without obstruction or (unknown) (no (unknown) (unknown) infection at that (units (unknown) date) point. unknown) (unknown) (no (unknown) (unknown) it went to the (units (unknown) date) wrong pharmacy unknown) after his visit on 07/23/2022. He was sent to the (unknown) (no (unknown) (unknown) ketorolac 10 mg (units (unknown) date) tablet 10 mg PO Q8H unknown) PRN pain #14 tabs 07/30/22 (unknown) (no (unknown) (unknown) ketorolac 10 mg (units (unknown) date) tablet unknown) (unknown) (no (unknown) (unknown) leave on most (units ( unknown) date) painful area for 12 unknown) hrs (unknown) (no (unknown) (unknown) lidocaine 5 % (units ( unknown) date) topical patch 1 unknown) patch topical DAILY #15 ea 07/11/22 (unknown) (no (unknown) (unknown) lidocaine (units (unkn own) date) [Lidoderm] 5 % unknown) adhesive patch,medicated (unknown) (no (unknown) (unknown) medications will (units (unknown) date) be picked up unknown) tomorrow from [facility] in [place], patient is (unknown) (no (unknown) (unknown) metoprolol (units (unk nown) date) tartrate 50 mg unknown) tablet 50 mg PO BID 10/15/21 10/15/21 (unknown) (no (unknown) (unknown) metoprolol (units (unk nown) date) tartrate 50 mg unknown) tablet (unknown) (no (unknown) (unknown) mg tablet (units (unkn own) date) (Percocet) unknown) (unknown) (no (unknown) (unknown) mg-trimethoprim (units (unknown) date) 160 mg tablet unknown) (unknown) (no (unknown) (unknown) morphine Allergy (units (unknown) date) Nightmare Verified unknown) 10/16/21 09:17 (unknown) (no (unknown) (unknown) new symptoms since (units (unknown) date) his last hospital unknown) visit, denies fever, chills, nausea (unknown) (no (unknown) (unknown) nontoxic appearing, (units (unknown) date) his symptoms and unknown) vital signs improved on recheck, he is p.o. (unknown) (no (unknown) (unknown) of Bactrim and (units (unknown) date) Percocet so he has unknown) medications for tomorrow morning. His (unknown) (no (unknown) (unknown) of bilateral lower (units (unknown) date) extremities. unknown) Patient wears chronic Bowling catheter. Denies (unknown) (no (unknown) (unknown) or torsion. (units (un known) date) Extensive unknown) conversation about ER return precautions and need for (unknown) (no (unknown) (unknown) other complicating (units (unknown) date) factor. Catheter unknown) was Left in place, irrigated using sterile (unknown) (no (unknown) (unknown) oxycodone-acetamin (units (unknown) date) ophen 5 mg-325 1 unknown) tab PO Q8H PRN pain #14 tabs 07/30/22 (unknown) (no (unknown) (unknown) oxycodone-acetamin (units (unknown) date) ophen [Percocet] unknown) 5-325 mg tablet (unknown) (no (unknown) (unknown) pancreatitis, (units ( unknown) date) perforated viscus, unknown) atypical appendicitis, colitis, diverticulitis (unknown) (no (unknown) (unknown) peritoneal signs (units (unknown) date) on abdominal exam. unknown) His pain was treated, he was given Bactrim, (unknown) (no (unknown) (unknown) phenazopyridine (units (unknown) date) 100 mg tablet 100 unknown) mg PO Q8H PRN bladder pain #10 07/30/22 (unknown) (no (unknown) (unknown) phenazopyridine (units (unknown) date) [Pyridium] 100 mg unknown) tablet (unknown) (no (unknown) (unknown) pregabalin 300 mg (units (unknown) date) capsule (Lyrica) unknown) 300 mg PO BID 10/15/21 10/15/21 (unknown) (no (unknown) (unknown) pregabalin (units (unk nown) date) [Lyrica] 300 mg unknown) capsule (unknown) (no (unknown) (unknown) progressive (units (unk nown) date) symptoms of unknown) worsening, denies any symptoms of COVID at this time. No (unknown) (no (unknown) (unknown) provider apply a (units (unknown) date) zinc barrier cream unknown) to all areas of redness of groin and (unknown) (no (unknown) (unknown) region. (units (unkno wn) date) unknown) (unknown) (no (unknown) (unknown) showing (units (unkno wn) date) sensitivity to unknown) Bactrim which he was prescribed but unable to sweet pickle maker as (unknown) (no (unknown) (unknown) start these (units (un known) date) antibiotics, have unknown) your medications picked up watery, use Pyridium (unknown) (no (unknown) (unknown) sulfamethoxazole (units (unknown) date) 800 1 tab PO BID 10 unknown) days #20 tabs 07/24/22 (unknown) (no (unknown) (unknown) sulfamethoxazole (units (unknown) date) 800 1 tab PO Q12H unknown) 10 days #20 tabs 07/30/22 (unknown) (no (unknown) (unknown) sulfamethoxazole-t (units (unknown) date) rimethoprim unknown) [Bactrim DS] 800-160 mg tablet (unknown) (no (unknown) (unknown) tachycardic at (units (unknown) date) time of discharge. unknown) I am sending MyChart prior to documentation (unknown) (no (unknown) (unknown) technique. (units (unk nown) date) unknown) (unknown) (no (unknown) (unknown) tenderness or (units ( unknown) date) exquisite unknown) tenderness with exam. (unknown) (no (unknown) (unknown) test your urine (units (unknown) date) for infection, unknown) refer you to urology if you have ongoing (unknown) (no (unknown) (unknown) that he was (units (un known) date) diagnosed positive unknown) with on 07/23/2022. On chart review it appears (unknown) (no (unknown) (unknown) that his symptoms (units (unknown) date) of COVID have unknown) improved. 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 Patient denies any (unknown) (no (unknown) (unknown) vomiting, flank (units (unknown) date) pain, complains of unknown) suprapubic tenderness and pressure. (unknown) (no (unknown) (unknown) vomiting. He was (units (unknown) date) given 1 L of normal unknown) saline, Bowling catheter was irrigated, gail (unknown) (no (unknown) (unknown) weakness (units (unkno wn) date) unknown) (unknown) (no (unknown) (unknown) wheezing, stridor, (units (unknown) date) or abnormal breath unknown) sounds. No retractions or tachypnea. (unknown) (no (unknown) (unknown) without increase (units (unknown) date) in abdominal pain. unknown) Given history and exam, low suspicion for (unknown) (no (unknown) (unknown) without (units (unkno wn) date) obstruction, Gail unknown) care completed without new wounds, barrier ointment (unknown) (no (unknown) (unknown) worsening pain, (units (unknown) date) persistent vomiting unknown) or other bothersome symptoms] (unknown) (no (unknown) (unknown) your Bowling (units (unk nown) date) catheter changed at unknown) that point. Please stay hydrated, have your care (unknown) (no (unknown) (unknown) zinc oxide 15 % (units (unknown) date) cream unknown) (unknown) (no (unknown) (unknown) zinc oxide 15 % (units (unknown) date) topical cream 1 unknown) applic topical BID #99 grams 07/30/22 Result panel [id number] (unknown) (no (unknown) (unknown) (no value) (units (unk nown) date) unknown) (unknown) (no (unknown) (unknown) [id number] (units (unkno wn) date) unknown) (unknown) (no (unknown) (unknown) 1. Enhancement of (units (unknown) date) the left kidney unknown) appears somewhat heterogeneous. This could (unknown) (no (unknown) (unknown) 08/06/22 (units (unkno wn) date) unknown) (unknown) (no (unknown) (unknown) [address] [place] [address] (units (unknown) date) unknown) (unknown) (no (unknown) (unknown) 2. Mild right (units ( unknown) date) hydronephrosis, unknown) decreased. Bilateral double-J ureteral stents. (unknown) (no (unknown) (unknown) 3. Renal cortical (units (unknown) date) atrophy is unknown) suspected. Alternatively, this could be due to (unknown) (no (unknown) (unknown) 4. Fecal matter (units (unknown) date) at the gluteal unknown) cleft versus decubitus ulcer. (unknown) (no (unknown) (unknown) 5. Nonspecific (units (unknown) date) prominence of the unknown) pancreatic head with multiple collateral (unknown) (no (unknown) (unknown) ABDOMEN: (units (unkno wn) date) unknown) (unknown) (no (unknown) (unknown) Abdominal Nodes: (units (unknown) date) No retroperitoneal unknown) or mesenteric adenopathy by size criteria. (unknown) (no (unknown) (unknown) Accession Number: (units (unknown) date) [id number] unknown) (unknown) (no (unknown) (unknown) Adrenal Glands: (units (unknown) date) No nodule. unknown) (unknown) (no (unknown) (unknown) After the (units (unkn own) date) administration of unknown) oral and IV contrast, axial sections were acquired (unknown) (no (unknown) (unknown) Age/Sex: 47 / M (units (unknown) date) Date of Service: unknown) (unknown) (no (unknown) (unknown) [place], [place] (units ( unknown) date) [id number] unknown) (unknown) (no (unknown) (unknown) Approved by: (units (u nknown) date) Zaid Medel M.D. unknown) on 08/06/2022 at 20:33 (unknown) (no (unknown) (unknown) Biliary ducts: (units (unknown) date) Unremarkable. unknown) (unknown) (no (unknown) (unknown) Bladder: (units (unkno wn) date) Decompressed with unknown) Bowling catheter. No stones. Bladder wall appears (unknown) (no (unknown) (unknown) Bones: No (units (unkn own) date) suspicious lesion. unknown) (unknown) (no (unknown) (unknown) COMPARISON: (units (un known) date) [facility] unknown) [facility], MR, MR ABDOMEN MRCP, 06/27/2022, 10:39. (unknown) (no (unknown) (unknown) CT Scan Report (units (unknown) date) unknown) (unknown) (no (unknown) (unknown) CT, CT ABDOMEN (units (unknown) date) PELVIS W CON, unknown) 07/23/2022, 23:14. (unknown) (no (unknown) (unknown) Comment: Findings (units (unknown) date) were discussed unknown) with Darci Baltazar PA-C at time of dictation. (unknown) (no (unknown) (unknown) : 1975 (units (unknown) date) Acct:[id number] unknown) (unknown) (no (unknown) (unknown) Dictated by: (units (u nknown) date) Zaid Medel M.D. unknown) on 08/06/2022 at 20:16 (unknown) (no (unknown) (unknown) FINDINGS: (units (unkn own) date) unknown) (unknown) (no (unknown) (unknown) Gallbladder: (units (u nknown) date) Within normal unknown) limits. (unknown) (no (unknown) (unknown) Heart: No (units (unkn own) date) significant unknown) findings. (unknown) (no (unknown) (unknown) Hospital, (units (unkn own) date) unknown) (unknown) (no (unknown) (unknown) IMPRESSION: (units (un known) date) unknown) (unknown) (no (unknown) (unknown) INDICATIONS: (units (u nknown) date) Flank pain; LLQ unknown) pin (unknown) (no (unknown) (unknown) Image quality: (units (unknown) date) Excellent. unknown) (unknown) (no (unknown) (unknown) [facility] (units (unknown) date) unknown) (unknown) (no (unknown) (unknown) Kidneys and (units (un known) date) Ureters: Mild unknown) right hydronephrosis, decreased. Small (unknown) (no (unknown) (unknown) Liver: Left lobe (units (unknown) date) calcification or unknown) metallic foreign body, unchanged. No (unknown) (no (unknown) (unknown) Loc: ED (units (unkno wn) date) unknown) (unknown) (no (unknown) (unknown) Lung bases: (units (un known) date) Unremarkable. unknown) (unknown) (no (unknown) (unknown) Miscellaneous: No (units (unknown) date) inguinal hernias unknown) are seen. Fecal matter at the gluteal cleft (unknown) (no (unknown) (unknown) Normal (units (unkno wn) date) unknown) (unknown) (no (unknown) (unknown) Ordering (units (unkno wn) date) Provider: unknown) Darci Baltazar P.A-C (unknown) (no (unknown) (unknown) PELVIS: (units (unkno wn) date) unknown) (unknown) (no (unknown) (unknown) PROCEDURE: CT (units ( unknown) date) ABDOMEN PELVIS W unknown) CON (unknown) (no (unknown) (unknown) Pancreas: No (units (u nknown) date) peripancreatic unknown) fluid collection. The pancreatic head is (unknown) (no (unknown) (unknown) Patient: Eleazar (units ( unknown) date) SrYann W MR#: [id number] unknown) (unknown) (no (unknown) (unknown) Pelvic Nodes: No (units (unknown) date) enlarged lymph unknown) nodes. (unknown) (no (unknown) (unknown) Pelvic Organs: No (units (unknown) date) free fluid. unknown) (unknown) (no (unknown) (unknown) Peritoneum: No (units (unknown) date) abnormal unknown) intraperitoneal fluid. No free air. (unknown) (no (unknown) (unknown) Procedure: CT (units ( unknown) date) abdomen pelvis w unknown) con (unknown) (no (unknown) (unknown) Renal (units (unkno wn) date) unknown) (unknown) (no (unknown) (unknown) Signed (units (unkno wn) date) unknown) (unknown) (no (unknown) (unknown) [place] (units (unkno wn) date) unknown) (unknown) (no (unknown) (unknown) Spleen: No (units (unk nown) date) splenomegaly. unknown) (unknown) (no (unknown) (unknown) Stomach and (units (un known) date) Bowel: Prominent unknown) stool in the rectum. A few colonic diverticuli. (unknown) (no (unknown) (unknown) TECHNIQUE: (units (unk nown) date) unknown) (unknown) (no (unknown) (unknown) There are (units (unkn own) date) multiple unknown) collateral vessels in the region of the pancreatic head, (unknown) (no (unknown) (unknown) [facility], (units (unknown) date) CT, CT ABDOMEN unknown) PELVIS WITH CONTRAST, 01/11/2021, 13:06. [place] (unknown) (no (unknown) (unknown) Ventral Wall: No (units (unknown) date) hernia. unknown) (unknown) (no (unknown) (unknown) Vessels: Aorta (units (unknown) date) and inferior vena unknown) cava are normal in size. (unknown) (no (unknown) (unknown) adjustment (units (unk nown) date) unknown) (unknown) (no (unknown) (unknown) appendix. No (units (u nknown) date) small bowel unknown) obstruction. Stomach is not distended. (unknown) (no (unknown) (unknown) be seen in (units (unk nown) date) unknown) (unknown) (no (unknown) (unknown) decubitus ulcer. (units (unknown) date) unknown) (unknown) (no (unknown) (unknown) edema given the (units (unknown) date) change in the unknown) short-term interval. (unknown) (no (unknown) (unknown) enhancement (units (un known) date) appears somewhat unknown) heterogeneous on the left. Bilateral double-J (unknown) (no (unknown) (unknown) from the (units (unkno wn) date) unknown) (unknown) (no (unknown) (unknown) improving (units (unkn own) date) unknown) (unknown) (no (unknown) (unknown) kidney stones. (units (unknown) date) There is thinning unknown) of the renal cortex compared to the prior CT. (unknown) (no (unknown) (unknown) lesion. (units (unkno wn) date) unknown) (unknown) (no (unknown) (unknown) lung bases to the (units (unknown) date) pubic symphysis. unknown) Coronal and sagittal reformats were (unknown) (no (unknown) (unknown) nonobstructing (units (unknown) date) right unknown) (unknown) (no (unknown) (unknown) of mA and/or kV (units (unknown) date) according to unknown) patient size. (unknown) (no (unknown) (unknown) performed. For (units (unknown) date) unknown) (unknown) (no (unknown) (unknown) prominent in (units (u nknown) date) size. unknown) (unknown) (no (unknown) (unknown) radiation dose (units (unknown) date) reduction, the unknown) following was used: automated exposure control, (unknown) (no (unknown) (unknown) similar. (units (unkno wn) date) unknown) (unknown) (no (unknown) (unknown) stents. Ureters (units (unknown) date) are prominent with unknown) trace periureteral stranding. (unknown) (no (unknown) (unknown) suspicious (units (unk nown) date) unknown) (unknown) (no (unknown) (unknown) the setting of (units (unknown) date) pyelonephritis. unknown) Recommend correlation with urinalysis. (unknown) (no (unknown) (unknown) thickened. (units (unk nown) date) unknown) (unknown) (no (unknown) (unknown) unchanged. (units (unk nown) date) unknown) (unknown) (no (unknown) (unknown) ureteral (units (unkno wn) date) unknown) (unknown) (no (unknown) (unknown) versus (units (unkno wn) date) unknown) (unknown) (no (unknown) (unknown) vessels appear (units (unknown) date) unknown) Result panel 1092 (unknown) (no date) (unknown) (unknown) 0 /ul (unkn own) (unknown) (no date) (unknown) (unknown) 0.5 % (unkn own) (unknown) (no date) (unknown) (unknown) 1200 /ul (unkn own) (unknown) (no date) (unknown) (unknown) 13.1 % (unkn own) (unknown) (no date) (unknown) (unknown) 13.4 g/dl (unkn own) (unknown) (no date) (unknown) (unknown) 17.4 % (unkn own) (unknown) (no date) (unknown) (unknown) 2.4 % (unkn own) (unknown) (no date) (unknown) (unknown) 200 /ul (unkn own) (unknown) (no date) (unknown) (unknown) 27.0 pg (unkn own) (unknown) (no date) (unknown) (unknown) 33.1 % (unkn own) (unknown) (no date) (unknown) (unknown) 377 x10 3/ul (unkn own) (unknown) (no date) (unknown) (unknown) 4.7 % (unkn own) (unknown) (no date) (unknown) (unknown) 4.96 x10 6/ul (unkn own) (unknown) (no date) (unknown) (unknown) 40.4 % (unkn own) (unknown) (no date) (unknown) (unknown) 400 /ul (unkn own) (unknown) (no date) (unknown) (unknown) 7400 /ul (unkn own) (unknown) (no date) (unknown) (unknown) 79.3 % (unkn own) (unknown) (no date) (unknown) (unknown) 81.4 fl (unkn own) (unknown) (no date) (unknown) (unknown) 9.3 x10 3/ul (unkn own) Result panel 1093 (unknown) (no date) (unknown) (unknown) > 60 ml/min (unkn own) (unknown) (no date) (unknown) (unknown) > 60 ml/min (unkn own) (unknown) (no date) (unknown) (unknown) 0.5 mg/dl (unkn own) (unknown) (no date) (unknown) (unknown) 0.95 mg/dl (unkn own) (unknown) (no date) (unknown) (unknown) 1.2 (units unknown) (unknown) (unknown) (no date) (unknown) (unknown) 1.8 mmol/l (unkn own) (unknown) (no date) (unknown) (unknown) 101 mg/dl (unkn own) (unknown) (no date) (unknown) (unknown) 101 mg/dl (unkn own) (unknown) (no date) (unknown) (unknown) 104 mmol/l (unkn own) (unknown) (no date) (unknown) (unknown) 138 mmol/l (unkn own) (unknown) (no date) (unknown) (unknown) 21 iu/l (unkn own) (unknown) (no date) (unknown) (unknown) 21 mg/dl (unkn own) (unknown) (no date) (unknown) (unknown) 22.1 (units unknown) (unknown) (unknown) (no date) (unknown) (unknown) 24 mmol/l (unkn own) (unknown) (no date) (unknown) (unknown) 29 iu/l (unkn own) (unknown) (no date) (unknown) (unknown) 3.6 g/dl (unkn own) (unknown) (no date) (unknown) (unknown) 4.2 g/dl (unkn own) (unknown) (no date) (unknown) (unknown) 4.2 mmol/l (unkn own) (unknown) (no date) (unknown) (unknown) 7.8 g/dl (unkn own) (unknown) (no date) (unknown) (unknown) 73 u/l (unkn own) (unknown) (no date) (unknown) (unknown) 9.4 mg/dl (unkn own) (unknown) (no date) (unknown) (unknown) 94 u/l (unkn own) Result panel 1094 (unknown) (no (unknown) (unknown) (no value) (units (unk nown) date) unknown) (unknown) (no (unknown) (unknown) (Bactrim DS) (units (u nknown) date) unknown) (unknown) (no (unknown) (unknown) (Lidoderm) (units (unk nown) date) unknown) (unknown) (no (unknown) (unknown) (Pyridium) tabs (units (unknown) date) unknown) (unknown) (no (unknown) (unknown) [id number] (units (unkno wn) date) unknown) (unknown) (no (unknown) (unknown) 1 applic topical (units (unknown) date) BID Qty: 99 0RF unknown) (unknown) (no (unknown) (unknown) 1 patch TOP DAILY (units (unknown) date) Qty: 15 0RF unknown) (unknown) (no (unknown) (unknown) 1 tab PO Q12H 10 (units (unknown) date) Days Qty: 20 0RF unknown) (unknown) (no (unknown) (unknown) 1 tab PO Q8H PRN (units (unknown) date) (Reason: pain) Qty: unknown) 14 0RF (unknown) (no (unknown) (unknown) 10 mg PO Q8H PRN (units (unknown) date) (Reason: pain) Qty: unknown) 14 0RF (unknown) (no (unknown) (unknown) 100 mg PO Q8H PRN (units (unknown) date) (Reason: bladder unknown) pain) Qty: 10 0RF (unknown) (no (unknown) (unknown) 08/06/22 08/06/22 (units (unknown) date) 08/06/22 unknown) Range/Units (unknown) (no (unknown) (unknown) 08/06/22 18:57 (units (unknown) date) unknown) (unknown) (no (unknown) (unknown) 08/06/22 19:00 (units (unknown) date) unknown) (unknown) (no (unknown) (unknown) 08/06/22 (units (unkno wn) date) Range/Units unknown) (unknown) (no (unknown) (unknown) 08/06/22 (units (unkno wn) date) unknown) (unknown) (no (unknown) (unknown) 17:46 08/06/22 (units (unknown) date) unknown) (unknown) (no (unknown) (unknown) 17:57 (units (unkno wn) date) unknown) (unknown) (no (unknown) (unknown) 19:00 19:00 19:00 (units (unknown) date) unknown) (unknown) (no (unknown) (unknown) 19:00 (units (unkno wn) date) unknown) (unknown) (no (unknown) (unknown) 300 mg PO BID (units ( unknown) date) unknown) (unknown) (no (unknown) (unknown) 50 mg PO BID (units (u nknown) date) unknown) (unknown) (no (unknown) (unknown) ALT (<50) IU/L (units (unknown) date) unknown) (unknown) (no (unknown) (unknown) ALT 29 (<50) IU/L (units (unknown) date) unknown) (unknown) (no (unknown) (unknown) AST (17-59) IU/L (units (unknown) date) unknown) (unknown) (no (unknown) (unknown) AST 21 (17-59) (units (unknown) date) IU/L unknown) (unknown) (no (unknown) (unknown) Age/Sex: 47 / M (units (unknown) date) unknown) (unknown) (no (unknown) (unknown) Albumin (3.5-5.0) (units (unknown) date) g/dL unknown) (unknown) (no (unknown) (unknown) Albumin 4.2 (units (un known) date) (3.5-5.0) g/dL unknown) (unknown) (no (unknown) (unknown) Albumin/Globulin (units (unknown) date) Ratio (1.0-2.8) unknown) (unknown) (no (unknown) (unknown) Albumin/Globulin (units (unknown) date) Ratio 1.2 (1.0-2.8) unknown) (unknown) (no (unknown) (unknown) Alkaline (units (unkno wn) date) Phosphatase unknown) (38-126) U/L (unknown) (no (unknown) (unknown) Alkaline (units (unkno wn) date) Phosphatase 94 unknown) (38-126) U/L (unknown) (no (unknown) (unknown) Allergies (units (unkn own) date) unknown) (unknown) (no (unknown) (unknown) Allergy/AdvReac (units (unknown) date) Type Severity unknown) Reaction Status Date / Time (unknown) (no (unknown) (unknown) BUN (9-20) mg/dL (units (unknown) date) unknown) (unknown) (no (unknown) (unknown) BUN 21 H (9-20) (units (unknown) date) mg/dL unknown) (unknown) (no (unknown) (unknown) BUN/Creatinine (units (unknown) date) Ratio (6-22) unknown) (unknown) (no (unknown) (unknown) BUN/Creatinine (units (unknown) date) Ratio 22.1 H (6-22) unknown) (unknown) (no (unknown) (unknown) Back pain (units (unkn own) date) unknown) (unknown) (no (unknown) (unknown) Baso # (Auto) (units ( unknown) date) (0-100) /uL unknown) (unknown) (no (unknown) (unknown) Baso # (Auto) 0 (units (unknown) date) (0-100) /uL unknown) (unknown) (no (unknown) (unknown) Baso % (Auto) (units ( unknown) date) (0-2) % unknown) (unknown) (no (unknown) (unknown) Baso % (Auto) 0.5 (units (unknown) date) (0-2) % unknown) (unknown) (no (unknown) (unknown) Blood Pressure (units (unknown) date) 166/103 H 08/06/22 unknown) 17:46 (unknown) (no (unknown) (unknown) Blood Pressure (units (unknown) date) 166/103 H unknown) (unknown) (no (unknown) (unknown) CBC Auto Diff (units ( unknown) date) [Complete Blood unknown) Count AUTO DIFF] Stat (unknown) (no (unknown) (unknown) CMP [Comprehensive (units (unknown) date) Metabolic Panel] unknown) Stat (unknown) (no (unknown) (unknown) CT abdomen pelvis (units (unknown) date) w con Stat unknown) (unknown) (no (unknown) (unknown) Calcium (8.4-10.2) (units (unknown) date) mg/dL unknown) (unknown) (no (unknown) (unknown) Calcium 9.4 (units (un known) date) (8.4-10.2) mg/dL unknown) (unknown) (no (unknown) (unknown) Carbon Dioxide (units (unknown) date) (22-32) mmol/L unknown) (unknown) (no (unknown) (unknown) Carbon Dioxide 24 (units (unknown) date) (22-32) mmol/L unknown) (unknown) (no (unknown) (unknown) Chief Complaint: (units (unknown) date) Back Pain/Injury unknown) (unknown) (no (unknown) (unknown) Chloride (98-107) (units (unknown) date) mmol/L unknown) (unknown) (no (unknown) (unknown) Chloride 104 (units (u nknown) date) (98-107) mmol/L unknown) (unknown) (no (unknown) (unknown) Course (units (unkno wn) date) unknown) (unknown) (no (unknown) (unknown) Creatinine (units (unk nown) date) (0.66-1.25) mg/dL unknown) (unknown) (no (unknown) (unknown) Creatinine 0.95 (units (unknown) date) (0.66-1.25) mg/dL unknown) (unknown) (no (unknown) (unknown) : 1975 (units (unknown) date) Acct:[id number] unknown) (unknown) (no (unknown) (unknown) Date of Service: (units (unknown) date) 08/06/22 unknown) (unknown) (no (unknown) (unknown) Departure (units (unkn own) date) unknown) (unknown) (no (unknown) (unknown) Discharge Plan (units (unknown) date) unknown) (unknown) (no (unknown) (unknown) Discontinued (units (u nknown) date) Medications unknown) (unknown) (no (unknown) (unknown) Documented By: KM (units (unknown) date) unknown) (unknown) (no (unknown) (unknown) ED Orders (units (unkn own) date) unknown) (unknown) (no (unknown) (unknown) ER Physician: (units ( unknown) date) Giovanny,Hyma P.A-C unknown) (unknown) (no (unknown) (unknown) Emergency Report (units (unknown) date) unknown) (unknown) (no (unknown) (unknown) Eos # (Auto) (units (u nknown) date) (0-450) /uL unknown) (unknown) (no (unknown) (unknown) Eos # (Auto) 200 (units (unknown) date) (0-450) /uL unknown) (unknown) (no (unknown) (unknown) Eos % (Auto) (2-4) (units (unknown) date) % unknown) (unknown) (no (unknown) (unknown) Eos % (Auto) 2.4 (units (unknown) date) (2-4) % unknown) (unknown) (no (unknown) (unknown) Estimated GFR > 60 (units (unknown) date) (>60) mL/min unknown) (unknown) (no (unknown) (unknown) Estimated GFR (units ( unknown) date) (>60) mL/min unknown) (unknown) (no (unknown) (unknown) Exam (units (unkno wn) date) unknown) (unknown) (no (unknown) (unknown) Family History (units (unknown) date) (Reviewed 07/30/22 unknown) @ 19:09 by Za Harrell [facility]) (unknown) (no (unknown) (unknown) Father CVA (units (unk nown) date) (cerebral vascular unknown) accident) (unknown) (no (unknown) (unknown) Functional (units (unk nown) date) paraparesis unknown) (unknown) (no (unknown) (unknown) General (units (unkno wn) date) unknown) (unknown) (no (unknown) (unknown) Globulin (1.7-4.1) (units (unknown) date) g/dL unknown) (unknown) (no (unknown) (unknown) Globulin 3.6 (units (u nknown) date) (1.7-4.1) g/dL unknown) (unknown) (no (unknown) (unknown) Glucose (70-100) (units (unknown) date) mg/dL unknown) (unknown) (no (unknown) (unknown) Glucose 101 H (units ( unknown) date) (70-100) mg/dL unknown) (unknown) (no (unknown) (unknown) HPI - Back (units (unk nown) date) Pain/Injury unknown) (unknown) (no (unknown) (unknown) Hct (41-53) % (units ( unknown) date) unknown) (unknown) (no (unknown) (unknown) Hct 40.4 L (41-53) (units (unknown) date) % unknown) (unknown) (no (unknown) (unknown) Hgb (13.5-17.5) (units (unknown) date) g/dL unknown) (unknown) (no (unknown) (unknown) Hgb 13.4 L (units (unk nown) date) (13.5-17.5) g/dL unknown) (unknown) (no (unknown) (unknown) History of spinal (units (unknown) date) surgery unknown) (unknown) (no (unknown) (unknown) History of (units (unk nown) date) tonsillectomy unknown) (unknown) (no (unknown) (unknown) Home Medications (units (unknown) date) unknown) (unknown) (no (unknown) (unknown) Hypertension (units (u nknown) date) unknown) (unknown) (no (unknown) (unknown) Initial Vital (units ( unknown) date) Signs unknown) (unknown) (no (unknown) (unknown) Initial Vital (units ( unknown) date) Signs: unknown) (unknown) (no (unknown) (unknown) [facility] (units (unknown) date) [address] [place] [address] Street unknown) [place] [address] (unknown) (no (unknown) (unknown) Ketorolac (units (unkn own) date) Tromethamine unknown) (Ketorolac 30 Mg/Ml Vial) 15 mg IV NOW ONE (unknown) (no (unknown) (unknown) Lab Data (units (unkno wn) date) unknown) (unknown) (no (unknown) (unknown) Lab Results (units (un known) date) unknown) (unknown) (no (unknown) (unknown) Label Comments: (units (unknown) date) unknown) (unknown) (no (unknown) (unknown) Labs: (units (unkno wn) date) unknown) (unknown) (no (unknown) (unknown) Lactate (0.7-2.1) (units (unknown) date) mmol/L unknown) (unknown) (no (unknown) (unknown) Lactate (Lactic (units (unknown) date) Acid) Stat unknown) (unknown) (no (unknown) (unknown) Lactate 1.8 (units (un known) date) (0.7-2.1) mmol/L unknown) (unknown) (no (unknown) (unknown) Last Admin: (units (un known) date) 08/06/22 19:26 unknown) Dose: 15 mg (unknown) (no (unknown) (unknown) Lipase (23-300) (units (unknown) date) U/L unknown) (unknown) (no (unknown) (unknown) Lipase 73 (23-300) (units (unknown) date) U/L unknown) (unknown) (no (unknown) (unknown) Lipase Stat (units (un known) date) unknown) (unknown) (no (unknown) (unknown) Lymph # (Auto) (units (unknown) date) (7973-6620) /uL unknown) (unknown) (no (unknown) (unknown) Lymph # (Auto) (units (unknown) date) 1200 (9234-3901) unknown) /uL (unknown) (no (unknown) (unknown) Lymph % (Auto) (units (unknown) date) (25-40) % unknown) (unknown) (no (unknown) (unknown) Lymph % (Auto) (units (unknown) date) 13.1 L (25-40) % unknown) (unknown) (no (unknown) (unknown) MCH (26-34) PG (units (unknown) date) unknown) (unknown) (no (unknown) (unknown) MCH 27.0 (26-34) (units (unknown) date) PG unknown) (unknown) (no (unknown) (unknown) MCHC (30-36) % (units (unknown) date) unknown) (unknown) (no (unknown) (unknown) MCHC 33.1 (30-36) (units (unknown) date) % unknown) (unknown) (no (unknown) (unknown) MCV (80-100) fL (units (unknown) date) unknown) (unknown) (no (unknown) (unknown) MCV 81.4 (80-100) (units (unknown) date) fL unknown) (unknown) (no (unknown) (unknown) MDM - Back (units (unk nown) date) Pain/Injury unknown) (unknown) (no (unknown) (unknown) Medical History (units (unknown) date) (Reviewed 07/30/22 unknown) @ 19:09 by Za Harrell [facility]) (unknown) (no (unknown) (unknown) Medication (units (unk nown) date) Instructions unknown) Recorded Confirmed (unknown) (no (unknown) (unknown) Medication (units (unk nown) date) Instructions unknown) Recorded (unknown) (no (unknown) (unknown) [place] # (Auto) (units ( unknown) date) (0-900) /uL unknown) (unknown) (no (unknown) (unknown) [place] # (Auto) 400 (units (unknown) date) (0-900) /uL unknown) (unknown) (no (unknown) (unknown) [place] % (Auto) (units ( unknown) date) (3-14) % unknown) (unknown) (no (unknown) (unknown) [place] % (Auto) 4.7 (units (unknown) date) (3-14) % unknown) (unknown) (no (unknown) (unknown) Mother Myocardial (units (unknown) date) infarct unknown) (unknown) (no (unknown) (unknown) Neurogenic pain (units (unknown) date) unknown) (unknown) (no (unknown) (unknown) Neut # (Auto) (units ( unknown) date) (0259-3954) /uL unknown) (unknown) (no (unknown) (unknown) Neut # (Auto) 7400 (units (unknown) date) H (5133-3836) /uL unknown) (unknown) (no (unknown) (unknown) Neut % (Auto) (units ( unknown) date) (50-75) % unknown) (unknown) (no (unknown) (unknown) Neut % (Auto) 79.3 (units (unknown) date) H (50-75) % unknown) (unknown) (no (unknown) (unknown) No Action (units (unkn own) date) unknown) (unknown) (no (unknown) (unknown) Ordered: (units (unkno wn) date) unknown) (unknown) (no (unknown) (unknown) Orders (units (unkno wn) date) unknown) (unknown) (no (unknown) (unknown) Oxygen Delivery (units (unknown) date) Method 08/06/22 unknown) 17:46 (unknown) (no (unknown) (unknown) Oxygen Delivery (units (unknown) date) Method Room Air unknown) Room Air (unknown) (no (unknown) (unknown) Patient History (units (unknown) date) unknown) (unknown) (no (unknown) (unknown) Patient: Eleazar (units ( unknown) date) Yann Jones MR#: [id number] unknown) (unknown) (no (unknown) (unknown) Plt Count (units (unkn own) date) (150-400) X103/uL unknown) (unknown) (no (unknown) (unknown) Plt Count 377 (units ( unknown) date) (150-400) X103/uL unknown) (unknown) (no (unknown) (unknown) Potassium (units (unkn own) date) (3.4-5.1) mmol/L unknown) (unknown) (no (unknown) (unknown) Potassium 4.2 (units ( unknown) date) (3.4-5.1) mmol/L unknown) (unknown) (no (unknown) (unknown) Prescriptions: (units (unknown) date) unknown) (unknown) (no (unknown) (unknown) Previous Rx's (units ( unknown) date) unknown) (unknown) (no (unknown) (unknown) Pulse Oximetry 96 (units (unknown) date) 08/06/22 17:46 unknown) (unknown) (no (unknown) (unknown) Pulse Oximetry 96 (units (unknown) date) 96 unknown) (unknown) (no (unknown) (unknown) Pulse Rate 96 H (units (unknown) date) 08/06/22 17:46 unknown) (unknown) (no (unknown) (unknown) Pulse Rate 96 H 93 (units (unknown) date) H unknown) (unknown) (no (unknown) (unknown) RBC (4.5-5.9) (units ( unknown) date) X106/uL unknown) (unknown) (no (unknown) (unknown) RBC 4.96 (4.5-5.9) (units (unknown) date) X106/uL unknown) (unknown) (no (unknown) (unknown) RDW (11.6-14.8) % (units (unknown) date) unknown) (unknown) (no (unknown) (unknown) RDW 17.4 H (units (unk nown) date) (11.6-14.8) % unknown) (unknown) (no (unknown) (unknown) Referrals: (units (unk nown) date) unknown) (unknown) (no (unknown) (unknown) Related Data (units (u nknown) date) unknown) (unknown) (no (unknown) (unknown) Respiratory Rate (units (unknown) date) 16 08/06/22 17:46 unknown) (unknown) (no (unknown) (unknown) Respiratory Rate (units (unknown) date) 16 unknown) (unknown) (no (unknown) (unknown) Result diagrams: (units (unknown) date) unknown) (unknown) (no (unknown) (unknown) Rx Instructions: (units (unknown) date) unknown) (unknown) (no (unknown) (unknown) 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 unknown) (unknown) (no (unknown) (unknown) Signed By: (units (unk nown) date) unknown) (unknown) (no (unknown) (unknown) Smoking Status: (units (unknown) date) Former smoker unknown) (unknown) (no (unknown) (unknown) Social History (units (unknown) date) (Reviewed 07/30/22 unknown) @ 19:09 by Za Harrell [facility]) (unknown) (no (unknown) (unknown) Sodium (137-145) (units (unknown) date) mmol/L unknown) (unknown) (no (unknown) (unknown) Sodium 138 (units (unk nown) date) (137-145) mmol/L unknown) (unknown) (no (unknown) (unknown) Source: patient (units (unknown) date) and EMS unknown) (unknown) (no (unknown) (unknown) Stated Complaint: (units (unknown) date) back pain, previous unknown) kidney surgery (unknown) (no (unknown) (unknown) Stop: 08/06/22 (units (unknown) date) 18:56 unknown) (unknown) (no (unknown) (unknown) Substance Use (units ( unknown) date) Type: does not use unknown) (unknown) (no (unknown) (unknown) Surgical History (units (unknown) date) (Reviewed 07/30/22 unknown) @ 19:09 by GENIE Da Silva) (unknown) (no (unknown) (unknown) Take 1 capsule by (units (unknown) date) mouth twice a day unknown) for chronic back pain (unknown) (no (unknown) (unknown) Take 1 tablet by (units (unknown) date) mouth twice a day unknown) (unknown) (no (unknown) (unknown) Temperature 97.8 F (units (unknown) date) 08/06/22 17:46 unknown) (unknown) (no (unknown) (unknown) Temperature 97.8 F (units (unknown) date) unknown) (unknown) (no (unknown) (unknown) Time Seen by (units (u nknown) date) Provider: 08/06/22 unknown) 17:57 (unknown) (no (unknown) (unknown) Total Bilirubin (units (unknown) date) (0.2-1.3) mg/dL unknown) (unknown) (no (unknown) (unknown) Total Bilirubin (units (unknown) date) 0.5 (0.2-1.3) mg/dL unknown) (unknown) (no (unknown) (unknown) Total Protein (units ( unknown) date) (6.3-8.2) g/dL unknown) (unknown) (no (unknown) (unknown) Total Protein 7.8 (units (unknown) date) (6.3-8.2) g/dL unknown) (unknown) (no (unknown) (unknown) Vital Signs - 8 hr (units (unknown) date) unknown) (unknown) (no (unknown) (unknown) Vital Signs (units (un known) date) unknown) (unknown) (no (unknown) (unknown) Vital signs: (units (u nknown) date) unknown) (unknown) (no (unknown) (unknown) WBC (4.5-11.0) (units (unknown) date) X103/uL unknown) (unknown) (no (unknown) (unknown) WBC 9.3 (4.5-11.0) (units (unknown) date) X103/uL unknown) (unknown) (no (unknown) (unknown) Young,Danika, (units (unknown) date) KIANNA [Primary Care unknown) Provider] (unknown) (no (unknown) (unknown) [Embedded Image (units (unknown) date) Not Available] unknown) (unknown) (no (unknown) (unknown) alcohol intake (units (unknown) date) frequency: unknown) holidays/special occasions only (unknown) (no (unknown) (unknown) alcohol intake: (units (unknown) date) current unknown) (unknown) (no (unknown) (unknown) gabapentin AdvReac (units (unknown) date) [place] Verified unknown) 08/06/22 17:46 (unknown) (no (unknown) (unknown) household members: (units (unknown) date) spouse, children, unknown) friend(s) and other (unknown) (no (unknown) (unknown) ketorolac 10 mg (units (unknown) date) tablet 10 mg PO Q8H unknown) PRN pain #14 tabs 07/30/22 (unknown) (no (unknown) (unknown) ketorolac 10 mg (units (unknown) date) tablet unknown) (unknown) (no (unknown) (unknown) leave on most (units ( unknown) date) painful area for 12 unknown) hrs (unknown) (no (unknown) (unknown) lidocaine 5 % (units ( unknown) date) topical patch 1 unknown) patch topical DAILY #15 ea 07/11/22 (unknown) (no (unknown) (unknown) lidocaine (units (unkn own) date) [Lidoderm] 5 % unknown) adhesive patch,medicated (unknown) (no (unknown) (unknown) metoprolol (units (unk nown) date) tartrate 50 mg unknown) tablet 50 mg PO BID 10/15/21 10/15/21 (unknown) (no (unknown) (unknown) metoprolol (units (unk nown) date) tartrate 50 mg unknown) tablet (unknown) (no (unknown) (unknown) mg tablet (units (unkn own) date) (Percocet) unknown) (unknown) (no (unknown) (unknown) mg-trimethoprim (units (unknown) date) 160 mg tablet unknown) (unknown) (no (unknown) (unknown) morphine Allergy (units (unknown) date) Nightmare Verified unknown) 08/06/22 17:46 (unknown) (no (unknown) (unknown) oxycodone-acetamin (units (unknown) date) ophen 5 mg-325 1 unknown) tab PO Q8H PRN pain #14 tabs 07/30/22 (unknown) (no (unknown) (unknown) oxycodone-acetamin (units (unknown) date) ophen [Percocet] unknown) 5-325 mg tablet (unknown) (no (unknown) (unknown) phenazopyridine (units (unknown) date) 100 mg tablet 100 unknown) mg PO Q8H PRN bladder pain #10 07/30/22 (unknown) (no (unknown) (unknown) phenazopyridine (units (unknown) date) [Pyridium] 100 mg unknown) tablet (unknown) (no (unknown) (unknown) pregabalin 300 mg (units (unknown) date) capsule (Lyrica) unknown) 300 mg PO BID 10/15/21 10/15/21 (unknown) (no (unknown) (unknown) pregabalin (units (unk nown) date) [Lyrica] 300 mg unknown) capsule (unknown) (no (unknown) (unknown) sulfamethoxazole (units (unknown) date) 800 1 tab PO Q12H unknown) 10 days #20 tabs 07/30/22 (unknown) (no (unknown) (unknown) sulfamethoxazole-t (units (unknown) date) rimethoprim unknown) [Bactrim DS] 800-160 mg tablet (unknown) (no (unknown) (unknown) zinc oxide 15 % (units (unknown) date) cream unknown) (unknown) (no (unknown) (unknown) zinc oxide 15 % (units (unknown) date) topical cream 1 unknown) applic topical BID #99 grams 07/30/22 Result panel 1095 (unknown) (no (unknown) (unknown) (no value) (units (unk nown) date) unknown) (unknown) (no (unknown) (unknown) (Bactrim DS) (units (u nknown) date) unknown) (unknown) (no (unknown) (unknown) (Lidoderm) (units (unk nown) date) unknown) (unknown) (no (unknown) (unknown) (Pyridium) tabs (units (unknown) date) unknown) (unknown) (no (unknown) (unknown) [id number] (units (unkno wn) date) unknown) (unknown) (no (unknown) (unknown) 1 applic topical (units (unknown) date) BID Qty: 99 0RF unknown) (unknown) (no (unknown) (unknown) 1 patch TOP DAILY (units (unknown) date) Qty: 15 0RF unknown) (unknown) (no (unknown) (unknown) 1 tab PO Q12H 10 (units (unknown) date) Days Qty: 20 0RF unknown) (unknown) (no (unknown) (unknown) 1 tab PO Q8H PRN (units (unknown) date) (Reason: pain) Qty: unknown) 14 0RF (unknown) (no (unknown) (unknown) 10 mg PO Q8H PRN (units (unknown) date) (Reason: pain) Qty: unknown) 14 0RF (unknown) (no (unknown) (unknown) 100 mg PO Q8H PRN (units (unknown) date) (Reason: bladder unknown) pain) Qty: 10 0RF (unknown) (no (unknown) (unknown) 07/30/2022, (units (un known) date) prescribe Bactrim unknown) for a UTI. Patient states he has been taking the (unknown) (no (unknown) (unknown) 08/06/22 08/06/22 (units (unknown) date) 08/06/22 unknown) Range/Units (unknown) (no (unknown) (unknown) 08/06/22 18:57 (units (unknown) date) unknown) (unknown) (no (unknown) (unknown) 08/06/22 19:00 (units (unknown) date) unknown) (unknown) (no (unknown) (unknown) 08/06/22 (units (unkno wn) date) Range/Units unknown) (unknown) (no (unknown) (unknown) 08/06/22 (units (unkno wn) date) unknown) (unknown) (no (unknown) (unknown) 17:46 08/06/22 (units (unknown) date) unknown) (unknown) (no (unknown) (unknown) 17:57 (units (unkno wn) date) unknown) (unknown) (no (unknown) (unknown) 19:00 19:00 19:00 (units (unknown) date) unknown) (unknown) (no (unknown) (unknown) 19:00 (units (unkno wn) date) unknown) (unknown) (no (unknown) (unknown) 300 mg PO BID (units ( unknown) date) unknown) (unknown) (no (unknown) (unknown) 47-year-old male (units (unknown) date) with past medical unknown) history nephrolithiasis, UTI, benign tumors (unknown) (no (unknown) (unknown) 50 mg PO BID (units (u nknown) date) unknown) (unknown) (no (unknown) (unknown) ALT (<50) IU/L (units (unknown) date) unknown) (unknown) (no (unknown) (unknown) ALT 29 (<50) IU/L (units (unknown) date) unknown) (unknown) (no (unknown) (unknown) AST (17-59) IU/L (units (unknown) date) unknown) (unknown) (no (unknown) (unknown) AST 21 (17-59) (units (unknown) date) IU/L unknown) (unknown) (no (unknown) (unknown) Abdomen is soft, (units (unknown) date) nondistended. unknown) Tender to palpation in the left quadrants. (unknown) (no (unknown) (unknown) Age/Sex: 47 / M (units (unknown) date) unknown) (unknown) (no (unknown) (unknown) Albumin (3.5-5.0) (units (unknown) date) g/dL unknown) (unknown) (no (unknown) (unknown) Albumin 4.2 (units (un known) date) (3.5-5.0) g/dL unknown) (unknown) (no (unknown) (unknown) Albumin/Globulin (units (unknown) date) Ratio (1.0-2.8) unknown) (unknown) (no (unknown) (unknown) Albumin/Globulin (units (unknown) date) Ratio 1.2 (1.0-2.8) unknown) (unknown) (no (unknown) (unknown) Alkaline (units (unkno wn) date) Phosphatase unknown) (38-126) U/L (unknown) (no (unknown) (unknown) Alkaline (units (unkno wn) date) Phosphatase 94 unknown) (38-126) U/L (unknown) (no (unknown) (unknown) Allergic/Immunolog (units (unknown) date) ic unknown) (unknown) (no (unknown) (unknown) Allergic/Immunolog (units (unknown) date) ic: Denies unknown) urticaria, Denies throat swelling and Denies (unknown) (no (unknown) (unknown) Allergies (units (unkn own) date) unknown) (unknown) (no (unknown) (unknown) Allergy/AdvReac (units (unknown) date) Type Severity unknown) Reaction Status Date / Time (unknown) (no (unknown) (unknown) Auscultation:?harshad (units (unknown) date) r to auscultation unknown) bilaterally (unknown) (no (unknown) (unknown) BUN (9-20) mg/dL (units (unknown) date) unknown) (unknown) (no (unknown) (unknown) BUN 21 H (9-20) (units (unknown) date) mg/dL unknown) (unknown) (no (unknown) (unknown) BUN/Creatinine (units (unknown) date) Ratio (6-22) unknown) (unknown) (no (unknown) (unknown) BUN/Creatinine (units (unknown) date) Ratio 22.1 H (6-22) unknown) (unknown) (no (unknown) (unknown) Back pain (units (unkn own) date) unknown) (unknown) (no (unknown) (unknown) Baso # (Auto) (units ( unknown) date) (0-100) /uL unknown) (unknown) (no (unknown) (unknown) Baso # (Auto) 0 (units (unknown) date) (0-100) /uL unknown) (unknown) (no (unknown) (unknown) Baso % (Auto) (units ( unknown) date) (0-2) % unknown) (unknown) (no (unknown) (unknown) Baso % (Auto) 0.5 (units (unknown) date) (0-2) % unknown) (unknown) (no (unknown) (unknown) Bilateral flank (units (unknown) date) pain unknown) (unknown) (no (unknown) (unknown) Blood Pressure (units (unknown) date) 166/103 H 08/06/22 unknown) 17:46 (unknown) (no (unknown) (unknown) Blood Pressure (units (unknown) date) 166/103 H unknown) (unknown) (no (unknown) (unknown) CBC Auto Diff (units ( unknown) date) [Complete Blood unknown) Count AUTO DIFF] Stat (unknown) (no (unknown) (unknown) CMP [Comprehensive (units (unknown) date) Metabolic Panel] unknown) Stat (unknown) (no (unknown) (unknown) CT abdomen pelvis (units (unknown) date) w con Stat unknown) (unknown) (no (unknown) (unknown) Calcium (8.4-10.2) (units (unknown) date) mg/dL unknown) (unknown) (no (unknown) (unknown) Calcium 9.4 (units (un known) date) (8.4-10.2) mg/dL unknown) (unknown) (no (unknown) (unknown) Carbon Dioxide (units (unknown) date) (22-32) mmol/L unknown) (unknown) (no (unknown) (unknown) Carbon Dioxide 24 (units (unknown) date) (22-32) mmol/L unknown) (unknown) (no (unknown) (unknown) Cardio (units (unkno wn) date) unknown) (unknown) (no (unknown) (unknown) Cardiovascular (units (unknown) date) unknown) (unknown) (no (unknown) (unknown) Cardiovascular: (units (unknown) date) Denies chest pain, unknown) Denies irregular heart rhythm, Denies (unknown) (no (unknown) (unknown) Chief Complaint: (units (unknown) date) Back Pain/Injury unknown) (unknown) (no (unknown) (unknown) Chloride (98-107) (units (unknown) date) mmol/L unknown) (unknown) (no (unknown) (unknown) Chloride 104 (units (u nknown) date) (98-107) mmol/L unknown) (unknown) (no (unknown) (unknown) Comments: (units (unkn own) date) unknown) (unknown) (no (unknown) (unknown) Const (units (unkno wn) date) unknown) (unknown) (no (unknown) (unknown) Constitutional (units (unknown) date) unknown) (unknown) (no (unknown) (unknown) Constitutional: (units (unknown) date) Denies chills, unknown) Denies fatigue, Denies fever(s), Denies frequent (unknown) (no (unknown) (unknown) Course (units (unkno wn) date) unknown) (unknown) (no (unknown) (unknown) Creatinine (units (unk nown) date) (0.66-1.25) mg/dL unknown) (unknown) (no (unknown) (unknown) Creatinine 0.95 (units (unknown) date) (0.66-1.25) mg/dL unknown) (unknown) (no (unknown) (unknown) : 1975 (units (unknown) date) Acct:[id number] unknown) (unknown) (no (unknown) (unknown) Date of Service: (units (unknown) date) 08/06/22 unknown) (unknown) (no (unknown) (unknown) Denies frequent (units (unknown) date) falls, Denies loss unknown) of vision, Denies numbness, Denies tingling (unknown) (no (unknown) (unknown) Denies loss of (units (unknown) date) vision unknown) (unknown) (no (unknown) (unknown) Denies numbness (units (unknown) date) and Denies tingling unknown) (unknown) (no (unknown) (unknown) Departure (units (unkn own) date) unknown) (unknown) (no (unknown) (unknown) Discharge Plan (units (unknown) date) unknown) (unknown) (no (unknown) (unknown) Discontinued (units (u nknown) date) Medications unknown) (unknown) (no (unknown) (unknown) Documented By: KM (units (unknown) date) unknown) (unknown) (no (unknown) (unknown) ED Orders (units (unkn own) date) unknown) (unknown) (no (unknown) (unknown) ENT (units (unkno wn) date) unknown) (unknown) (no (unknown) (unknown) ER Physician: (units ( unknown) date) Giovanny,Hyma P.A-C unknown) (unknown) (no (unknown) (unknown) Ears, Nose, Mouth, (units (unknown) date) and Throat: Denies unknown) change in voice, Denies dizziness, Denies (unknown) (no (unknown) (unknown) Ears:?hearing (units ( unknown) date) grossly normal unknown) bilaterally (unknown) (no (unknown) (unknown) Effort + (units (unkno wn) date) Inspection:?normal unknown) respiratory effort (unknown) (no (unknown) (unknown) Emergency Report (units (unknown) date) unknown) (unknown) (no (unknown) (unknown) Endocrine (units (unkn own) date) unknown) (unknown) (no (unknown) (unknown) Endocrine: Denies (units (unknown) date) fatigue, Denies unknown) flushing and Denies palpitations (unknown) (no (unknown) (unknown) Eos # (Auto) (units (u nknown) date) (0-450) /uL unknown) (unknown) (no (unknown) (unknown) Eos # (Auto) 200 (units (unknown) date) (0-450) /uL unknown) (unknown) (no (unknown) (unknown) Eos % (Auto) (2-4) (units (unknown) date) % unknown) (unknown) (no (unknown) (unknown) Eos % (Auto) 2.4 (units (unknown) date) (2-4) % unknown) (unknown) (no (unknown) (unknown) Estimated GFR > 60 (units (unknown) date) (>60) mL/min unknown) (unknown) (no (unknown) (unknown) Estimated GFR (units ( unknown) date) (>60) mL/min unknown) (unknown) (no (unknown) (unknown) Exam Narrative: (units (unknown) date) unknown) (unknown) (no (unknown) (unknown) Exam (units (unkno wn) date) unknown) (unknown) (no (unknown) (unknown) Eyes (units (unkno wn) date) unknown) (unknown) (no (unknown) (unknown) Eyes: Denies (units (u nknown) date) change in vision, unknown) Denies eye discharge, Denies irritation and (unknown) (no (unknown) (unknown) Face and (units (unkno wn) date) sinus:?normal unknown) facial exam and sinuses nontender (unknown) (no (unknown) (unknown) Family History (units (unknown) date) (Reviewed 12/19/22 unknown) @ 20:12 by Darci Baltazar PA-C) (unknown) (no (unknown) (unknown) Father CVA (units (unk nown) date) (cerebral vascular unknown) accident) (unknown) (no (unknown) (unknown) Functional (units (unk nown) date) paraparesis unknown) (unknown) (no (unknown) (unknown) GI (units (unkno wn) date) unknown) (unknown) (no (unknown) (unknown) Gastrointestinal (units (unknown) date) unknown) (unknown) (no (unknown) (unknown) Gastrointestinal: (units (unknown) date) Reports abdominal unknown) pain, Denies change in bowel habits, Denies (unknown) (no (unknown) (unknown) General (units (unkno wn) date) unknown) (unknown) (no (unknown) (unknown) General:?appearanc (units (unknown) date) e normal, both eyes unknown) and all related structures (unknown) (no (unknown) (unknown) General:?cooperati (units (unknown) date) ve, healthy unknown) appearing and comfortable (unknown) (no (unknown) (unknown) General:?patient (units (unknown) date) alert, patient unknown) awake and patient oriented x3 (unknown) (no (unknown) (unknown) Genitourinary (units ( unknown) date) unknown) (unknown) (no (unknown) (unknown) Genitourinary: (units (unknown) date) Denies hematuria, unknown) Denies flank pain, Denies urinary incontinence (unknown) (no (unknown) (unknown) Globulin (1.7-4.1) (units (unknown) date) g/dL unknown) (unknown) (no (unknown) (unknown) Globulin 3.6 (units (u nknown) date) (1.7-4.1) g/dL unknown) (unknown) (no (unknown) (unknown) Glucose (70-100) (units (unknown) date) mg/dL unknown) (unknown) (no (unknown) (unknown) Glucose 101 H (units ( unknown) date) (70-100) mg/dL unknown) (unknown) (no (unknown) (unknown) HENMT (units (unkno wn) date) unknown) (unknown) (no (unknown) (unknown) HPI - Back (units (unk nown) date) Pain/Injury unknown) (unknown) (no (unknown) (unknown) HPI Narrative: (units (unknown) date) unknown) (unknown) (no (unknown) (unknown) Hct (41-53) % (units ( unknown) date) unknown) (unknown) (no (unknown) (unknown) Hct 40.4 L (41-53) (units (unknown) date) % unknown) (unknown) (no (unknown) (unknown) Head:?normal to (units (unknown) date) inspection unknown) (unknown) (no (unknown) (unknown) Hematologic/Lympha (units (unknown) date) tic unknown) (unknown) (no (unknown) (unknown) Hematologic/Lympha (units (unknown) date) tic: Denies easy unknown) bruising (unknown) (no (unknown) (unknown) Hgb (13.5-17.5) (units (unknown) date) g/dL unknown) (unknown) (no (unknown) (unknown) Hgb 13.4 L (units (unk nown) date) (13.5-17.5) g/dL unknown) (unknown) (no (unknown) (unknown) History of Present (units (unknown) date) Illness unknown) (unknown) (no (unknown) (unknown) History of spinal (units (unknown) date) surgery unknown) (unknown) (no (unknown) (unknown) History of (units (unk nown) date) tonsillectomy unknown) (unknown) (no (unknown) (unknown) Home Medications (units (unknown) date) unknown) (unknown) (no (unknown) (unknown) Hypertension (units (u nknown) date) unknown) (unknown) (no (unknown) (unknown) Initial Vital (units ( unknown) date) Signs unknown) (unknown) (no (unknown) (unknown) Initial Vital (units ( unknown) date) Signs: unknown) (unknown) (no (unknown) (unknown) Integumentary/[place] (units (unknown) date) sts unknown) (unknown) (no (unknown) (unknown) [facility] (units (unknown) date) [address] unknown) [place] [address] (unknown) (no (unknown) (unknown) Ketorolac (units (unkn own) date) Tromethamine unknown) (Ketorolac 30 Mg/Ml Vial) 15 mg IV NOW ONE (unknown) (no (unknown) (unknown) Lab Data (units (unkno wn) date) unknown) (unknown) (no (unknown) (unknown) Lab Results (units (un known) date) unknown) (unknown) (no (unknown) (unknown) Label Comments: (units (unknown) date) unknown) (unknown) (no (unknown) (unknown) Labs: (units (unkno wn) date) unknown) (unknown) (no (unknown) (unknown) Lactate (0.7-2.1) (units (unknown) date) mmol/L unknown) (unknown) (no (unknown) (unknown) Lactate (Lactic (units (unknown) date) Acid) Stat unknown) (unknown) (no (unknown) (unknown) Lactate 1.8 (units (un known) date) (0.7-2.1) mmol/L unknown) (unknown) (no (unknown) (unknown) Last Admin: (units (un known) date) 08/06/22 19:26 unknown) Dose: 15 mg (unknown) (no (unknown) (unknown) Lipase (23-300) (units (unknown) date) U/L unknown) (unknown) (no (unknown) (unknown) Lipase 73 (23-300) (units (unknown) date) U/L unknown) (unknown) (no (unknown) (unknown) Lipase Stat (units (un known) date) unknown) (unknown) (no (unknown) (unknown) Lymph # (Auto) (units (unknown) date) (0692-3819) /uL unknown) (unknown) (no (unknown) (unknown) Lymph # (Auto) (units (unknown) date) 1200 (6622-1031) unknown) /uL (unknown) (no (unknown) (unknown) Lymph % (Auto) (units (unknown) date) (25-40) % unknown) (unknown) (no (unknown) (unknown) Lymph % (Auto) (units (unknown) date) 13.1 L (25-40) % unknown) (unknown) (no (unknown) (unknown) MCH (26-34) PG (units (unknown) date) unknown) (unknown) (no (unknown) (unknown) MCH 27.0 (26-34) (units (unknown) date) PG unknown) (unknown) (no (unknown) (unknown) MCHC (30-36) % (units (unknown) date) unknown) (unknown) (no (unknown) (unknown) MCHC 33.1 (30-36) (units (unknown) date) % unknown) (unknown) (no (unknown) (unknown) MCV (80-100) fL (units (unknown) date) unknown) (unknown) (no (unknown) (unknown) MCV 81.4 (80-100) (units (unknown) date) fL unknown) (unknown) (no (unknown) (unknown) MDM - Back (units (unk nown) date) Pain/Injury unknown) (unknown) (no (unknown) (unknown) MDM Narrative (units ( unknown) date) unknown) (unknown) (no (unknown) (unknown) Medical History (units (unknown) date) (Reviewed 08/06/22 unknown) @ 20:11 by Darci Baltazar PA-C) (unknown) (no (unknown) (unknown) Medical decision (units (unknown) date) making narrative: unknown) (unknown) (no (unknown) (unknown) Medication (units (unk nown) date) Instructions unknown) Recorded Confirmed (unknown) (no (unknown) (unknown) Medication (units (unk nown) date) Instructions unknown) Recorded (unknown) (no (unknown) (unknown) [place] # (Auto) (units ( unknown) date) (0-900) /uL unknown) (unknown) (no (unknown) (unknown) [place] # (Auto) 400 (units (unknown) date) (0-900) /uL unknown) (unknown) (no (unknown) (unknown) [place] % (Auto) (units ( unknown) date) (3-14) % unknown) (unknown) (no (unknown) (unknown) [place] % (Auto) 4.7 (units (unknown) date) (3-14) % unknown) (unknown) (no (unknown) (unknown) Mother Myocardial (units (unknown) date) infarct unknown) (unknown) (no (unknown) (unknown) Mouth:?oral (units (un known) date) mucosae normal unknown) (unknown) (no (unknown) (unknown) Musculoskeletal (units (unknown) date) unknown) (unknown) (no (unknown) (unknown) Musculoskeletal: (units (unknown) date) Denies back pain, unknown) Denies muscle weakness, Denies neck pain, (unknown) (no (unknown) (unknown) Narrative (units (unkn own) date) unknown) (unknown) (no (unknown) (unknown) Neck (units (unkno wn) date) unknown) (unknown) (no (unknown) (unknown) Neck:?normal (units (u nknown) date) visual inspection unknown) and no lymphadenopathy noted (unknown) (no (unknown) (unknown) Neuro (units (unkno wn) date) unknown) (unknown) (no (unknown) (unknown) Neurogenic pain (units (unknown) date) unknown) (unknown) (no (unknown) (unknown) Neurologic (units (unk nown) date) unknown) (unknown) (no (unknown) (unknown) Neurologic: Denies (units (unknown) date) behavioral changes, unknown) Denies confusion, Denies dizziness, (unknown) (no (unknown) (unknown) Neut # (Auto) (units ( unknown) date) (9225-8900) /uL unknown) (unknown) (no (unknown) (unknown) Neut # (Auto) 7400 (units (unknown) date) H (3000-2579) /uL unknown) (unknown) (no (unknown) (unknown) Neut % (Auto) (units ( unknown) date) (50-75) % unknown) (unknown) (no (unknown) (unknown) Neut % (Auto) 79.3 (units (unknown) date) H (50-75) % unknown) (unknown) (no (unknown) (unknown) No Action (units (unkn own) date) unknown) (unknown) (no (unknown) (unknown) Nose:?external (units (unknown) date) nose normal unknown) (unknown) (no (unknown) (unknown) Ordered: (units (unkno wn) date) unknown) (unknown) (no (unknown) (unknown) Orders (units (unkno wn) date) unknown) (unknown) (no (unknown) (unknown) Oxygen Delivery (units (unknown) date) Method 08/06/22 unknown) 17:46 (unknown) (no (unknown) (unknown) Oxygen Delivery (units (unknown) date) Method Room Air unknown) Room Air (unknown) (no (unknown) (unknown) Patient History (units (unknown) date) unknown) (unknown) (no (unknown) (unknown) Patient: Eleazar (units ( unknown) date) Yann Jones MR#: [id number] unknown) (unknown) (no (unknown) (unknown) Plt Count (units (unkn own) date) (150-400) X103/uL unknown) (unknown) (no (unknown) (unknown) Plt Count 377 (units ( unknown) date) (150-400) X103/uL unknown) (unknown) (no (unknown) (unknown) Positive CVA (units (u nknown) date) tenderness. unknown) (unknown) (no (unknown) (unknown) Potassium (units (unkn own) date) (3.4-5.1) mmol/L unknown) (unknown) (no (unknown) (unknown) Potassium 4.2 (units ( unknown) date) (3.4-5.1) mmol/L unknown) (unknown) (no (unknown) (unknown) Prescriptions: (units (unknown) date) unknown) (unknown) (no (unknown) (unknown) Previous Rx's (units ( unknown) date) unknown) (unknown) (no (unknown) (unknown) Psychiatric (units (un known) date) unknown) (unknown) (no (unknown) (unknown) Psychiatric: Denies (units (unknown) date) anxiety, Denies unknown) behavioral changes, Denies confusion, Denies (unknown) (no (unknown) (unknown) Pulse Oximetry 96 (units (unknown) date) 08/06/22 17:46 unknown) (unknown) (no (unknown) (unknown) Pulse Oximetry 96 (units (unknown) date) 96 unknown) (unknown) (no (unknown) (unknown) Pulse Rate 96 H (units (unknown) date) 08/06/22 17:46 unknown) (unknown) (no (unknown) (unknown) Pulse Rate 96 H 93 (units (unknown) date) H unknown) (unknown) (no (unknown) (unknown) RBC (4.5-5.9) (units ( unknown) date) X106/uL unknown) (unknown) (no (unknown) (unknown) RBC 4.96 (4.5-5.9) (units (unknown) date) X106/uL unknown) (unknown) (no (unknown) (unknown) RDW (11.6-14.8) % (units (unknown) date) unknown) (unknown) (no (unknown) (unknown) RDW 17.4 H (units (unk nown) date) (11.6-14.8) % unknown) (unknown) (no (unknown) (unknown) ROS Unobtainable: (units (unknown) date) All systems unknown) reviewed + are unremarkable except as noted in HPI (unknown) (no (unknown) (unknown) Rate:?regular rate (units (unknown) date) unknown) (unknown) (no (unknown) (unknown) Referrals: (units (unk nown) date) unknown) (unknown) (no (unknown) (unknown) Related Data (units (u nknown) date) unknown) (unknown) (no (unknown) (unknown) Resp (units (unkno wn) date) unknown) (unknown) (no (unknown) (unknown) Respiratory Rate (units (unknown) date) 16 08/06/22 17:46 unknown) (unknown) (no (unknown) (unknown) Respiratory Rate (units (unknown) date) 16 unknown) (unknown) (no (unknown) (unknown) Respiratory (units (un known) date) unknown) (unknown) (no (unknown) (unknown) Respiratory: Denies (units (unknown) date) cough, Denies unknown) dyspnea, Denies dyspnea on exertion and Denies (unknown) (no (unknown) (unknown) Result diagrams: (units (unknown) date) unknown) (unknown) (no (unknown) (unknown) Review of Systems (units (unknown) date) unknown) (unknown) (no (unknown) (unknown) Rhythm:?regular (units (unknown) date) rhythm unknown) (unknown) (no (unknown) (unknown) Rx Instructions: (units (unknown) date) unknown) (unknown) (no (unknown) (unknown) 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 unknown) (unknown) (no (unknown) (unknown) Signed By: (units (unk nown) date) unknown) (unknown) (no (unknown) (unknown) Skin/Breast: (units (u nknown) date) Denies pruritus, unknown) Denies erythema, Denies rash and Denies wounds (unknown) (no (unknown) (unknown) Smoking Status: (units (unknown) date) Former smoker unknown) (unknown) (no (unknown) (unknown) Social History (units (unknown) date) (Reviewed 08/06/22 unknown) @ 20:12 by Darci Baltazar PA-C) (unknown) (no (unknown) (unknown) Sodium (137-145) (units (unknown) date) mmol/L unknown) (unknown) (no (unknown) (unknown) Sodium 138 (units (unk nown) date) (137-145) mmol/L unknown) (unknown) (no (unknown) (unknown) Source: patient (units (unknown) date) and EMS unknown) (unknown) (no (unknown) (unknown) Stated Complaint: (units (unknown) date) back pain, previous unknown) kidney surgery (unknown) (no (unknown) (unknown) Stop: 08/06/22 (units (unknown) date) 18:56 unknown) (unknown) (no (unknown) (unknown) Substance Use (units ( unknown) date) Type: does not use unknown) (unknown) (no (unknown) (unknown) Surgical History (units (unknown) date) (Reviewed 08/06/22 unknown) @ 20:12 by Darci Baltazar PA-C) (unknown) (no (unknown) (unknown) Take 1 capsule by (units (unknown) date) mouth twice a day unknown) for chronic back pain (unknown) (no (unknown) (unknown) Take 1 tablet by (units (unknown) date) mouth twice a day unknown) (unknown) (no (unknown) (unknown) Temperature 97.8 F (units (unknown) date) 08/06/22 17:46 unknown) (unknown) (no (unknown) (unknown) Temperature 97.8 F (units (unknown) date) unknown) (unknown) (no (unknown) (unknown) Throat:?posterior (units (unknown) date) oropharynx normal unknown) (unknown) (no (unknown) (unknown) Time Seen by (units (u nknown) date) Provider: 08/06/22 unknown) 17:57 (unknown) (no (unknown) (unknown) Total Bilirubin (units (unknown) date) (0.2-1.3) mg/dL unknown) (unknown) (no (unknown) (unknown) Total Bilirubin (units (unknown) date) 0.5 (0.2-1.3) mg/dL unknown) (unknown) (no (unknown) (unknown) Total Protein (units ( unknown) date) (6.3-8.2) g/dL unknown) (unknown) (no (unknown) (unknown) Total Protein 7.8 (units (unknown) date) (6.3-8.2) g/dL unknown) (unknown) (no (unknown) (unknown) Vital Signs - 8 hr (units (unknown) date) unknown) (unknown) (no (unknown) (unknown) Vital Signs (units (un known) date) unknown) (unknown) (no (unknown) (unknown) Vital signs: (units (u nknown) date) unknown) (unknown) (no (unknown) (unknown) WBC (4.5-11.0) (units (unknown) date) X103/uL unknown) (unknown) (no (unknown) (unknown) WBC 9.3 (4.5-11.0) (units (unknown) date) X103/uL unknown) (unknown) (no (unknown) (unknown) Danika García, (units (unknown) date) PAReynaldoC [Primary Care unknown) Provider] (unknown) (no (unknown) (unknown) [Embedded Image (units (unknown) date) Not Available] unknown) (unknown) (no (unknown) (unknown) alcohol intake (units (unknown) date) frequency: unknown) holidays/special occasions only (unknown) (no (unknown) (unknown) alcohol intake: (units (unknown) date) current unknown) (unknown) (no (unknown) (unknown) and Denies (units (unk nown) date) orthopnea unknown) (unknown) (no (unknown) (unknown) and Denies urinary (units (unknown) date) urgency unknown) (unknown) (no (unknown) (unknown) and Denies (units (unk nown) date) weakness unknown) (unknown) (no (unknown) (unknown) and below (units (unkn own) date) unknown) (unknown) (no (unknown) (unknown) antibiotic, (units (un known) date) however his back unknown) pain has worsened. Patient also endorses left (unknown) (no (unknown) (unknown) breath, nausea, (units (unknown) date) vomiting, dysuria, unknown) lightheadedness, dizziness, syncope. (unknown) (no (unknown) (unknown) depression, Denies (units (unknown) date) homicidal ideation unknown) and Denies suicidal ideation (unknown) (no (unknown) (unknown) diarrhea, Denies (units (unknown) date) nausea and Denies unknown) vomiting (unknown) (no (unknown) (unknown) falls, Denies (units ( unknown) date) lethargy and Denies unknown) weakness (unknown) (no (unknown) (unknown) gabapentin AdvReac (units (unknown) date) Shakiness Verified unknown) 08/06/22 17:46 (unknown) (no (unknown) (unknown) household members: (units (unknown) date) spouse, children, unknown) friend(s) and other (unknown) (no (unknown) (unknown) ketorolac 10 mg (units (unknown) date) tablet 10 mg PO Q8H unknown) PRN pain #14 tabs 07/30/22 (unknown) (no (unknown) (unknown) ketorolac 10 mg (units (unknown) date) tablet unknown) (unknown) (no (unknown) (unknown) leave on most (units ( unknown) date) painful area for 12 unknown) hrs (unknown) (no (unknown) (unknown) lidocaine 5 % (units ( unknown) date) topical patch 1 unknown) patch topical DAILY #15 ea 07/11/22 (unknown) (no (unknown) (unknown) lidocaine (units (unkn own) date) [Lidoderm] 5 % unknown) adhesive patch,medicated (unknown) (no (unknown) (unknown) lightheadedness, (units (unknown) date) Denies unknown) palpitations, Denies dyspnea, Denies dyspnea on exertion (unknown) (no (unknown) (unknown) lipase, type and (units (unknown) date) screen, UA, CT unknown) abdomen pelvis. Will give Toradol for pain. (unknown) (no (unknown) (unknown) metoprolol (units (unk nown) date) tartrate 50 mg unknown) tablet 50 mg PO BID 10/15/21 10/15/21 (unknown) (no (unknown) (unknown) metoprolol (units (unk nown) date) tartrate 50 mg unknown) tablet (unknown) (no (unknown) (unknown) mg tablet (units (unkn own) date) (Percocet) unknown) (unknown) (no (unknown) (unknown) mg-trimethoprim (units (unknown) date) 160 mg tablet unknown) (unknown) (no (unknown) (unknown) morphine Allergy (units (unknown) date) Nightmare Verified unknown) 08/06/22 17:46 (unknown) (no (unknown) (unknown) neck pain, Denies (units (unknown) date) sore throat and unknown) Denies throat swelling (unknown) (no (unknown) (unknown) of the spinal (units ( unknown) date) caught, paralysis unknown) of both lower limbs, indwelling Bowling catheter (unknown) (no (unknown) (unknown) oxycodone-acetamin (units (unknown) date) ophen 5 mg-325 1 unknown) tab PO Q8H PRN pain #14 tabs 07/30/22 (unknown) (no (unknown) (unknown) oxycodone-acetamin (units (unknown) date) ophen [Percocet] unknown) 5-325 mg tablet (unknown) (no (unknown) (unknown) phenazopyridine (units (unknown) date) 100 mg tablet 100 unknown) mg PO Q8H PRN bladder pain #10 07/30/22 (unknown) (no (unknown) (unknown) phenazopyridine (units (unknown) date) [Pyridium] 100 mg unknown) tablet (unknown) (no (unknown) (unknown) pregabalin 300 mg (units (unknown) date) capsule (Lyrica) unknown) 300 mg PO BID 10/15/21 10/15/21 (unknown) (no (unknown) (unknown) pregabalin (units (unk nown) date) [Lyrica] 300 mg unknown) capsule (unknown) (no (unknown) (unknown) presents to the ED (units (unknown) date) with bilateral unknown) flank pain. Concern for UTI versus (unknown) (no (unknown) (unknown) presents to the ED (units (unknown) date) with bilateral unknown) flank pain. Patient was seen in the ED on (unknown) (no (unknown) (unknown) pyelonephritis (units (unknown) date) versus unknown) nephrolithiasis versus diverticulitis versus constipation (unknown) (no (unknown) (unknown) sided abdominal (units (unknown) date) pain. Patient unknown) denies fever, chills, chest pain, shortness of (unknown) (no (unknown) (unknown) sulfamethoxazole (units (unknown) date) 800 1 tab PO Q12H unknown) 10 days #20 tabs 07/30/22 (unknown) (no (unknown) (unknown) sulfamethoxazole-t (units (unknown) date) rimethoprim unknown) [Bactrim DS] 800-160 mg tablet (unknown) (no (unknown) (unknown) versus other (units (u nknown) date) intra-abdominal unknown) pathology versus other. Will obtain labs, lactate, (unknown) (no (unknown) (unknown) wheezing (units (unkno wn) date) unknown) (unknown) (no (unknown) (unknown) zinc oxide 15 % (units (unknown) date) cream unknown) (unknown) (no (unknown) (unknown) zinc oxide 15 % (units (unknown) date) topical cream 1 unknown) applic topical BID #99 grams 07/30/22 Result panel [id number] (unknown) (no (unknown) (unknown) (no value) (units (unk nown) date) unknown) (unknown) (no (unknown) (unknown) <Electronically (units (unknown) date) signed by Darci unknown) P.A-C Giovanny> (unknown) (no (unknown) (unknown) (Bactrim DS) (units (u nknown) date) unknown) (unknown) (no (unknown) (unknown) (Lidoderm) (units (unk nown) date) unknown) (unknown) (no (unknown) (unknown) (Pyridium) tabs (units (unknown) date) unknown) (unknown) (no (unknown) (unknown) [id number] (units (unkno wn) date) unknown) (unknown) (no (unknown) (unknown) 1 applic topical (units (unknown) date) BID Qty: 99 0RF unknown) (unknown) (no (unknown) (unknown) 1 patch TOP DAILY (units (unknown) date) Qty: 15 0RF unknown) (unknown) (no (unknown) (unknown) 1 tab PO Q12H 10 (units (unknown) date) Days Qty: 20 0RF unknown) (unknown) (no (unknown) (unknown) 1 tab PO Q8H PRN (units (unknown) date) (Reason: pain) Qty: unknown) 14 0RF (unknown) (no (unknown) (unknown) 1. Enhancement of (units (unknown) date) the left kidney unknown) appears somewhat heterogeneous.? This could be (unknown) (no (unknown) (unknown) 10 mg PO Q8H PRN (units (unknown) date) (Reason: pain) Qty: unknown) 14 0RF (unknown) (no (unknown) (unknown) 100 mg PO BID 10 (units (unknown) date) Days Qty: 20 0RF unknown) (unknown) (no (unknown) (unknown) 100 mg PO Q8H PRN (units (unknown) date) (Reason: bladder unknown) pain) Qty: 10 0RF (unknown) (no (unknown) (unknown) 07/30/2022, (units (un known) date) prescribe Bactrim unknown) for a UTI. Patient states he has been taking the (unknown) (no (unknown) (unknown) 08/06/22 08/06/22 (units (unknown) date) 08/06/22 unknown) Range/Units (unknown) (no (unknown) (unknown) 08/06/22 18:57 (units (unknown) date) unknown) (unknown) (no (unknown) (unknown) 08/06/22 19:00 (units (unknown) date) unknown) (unknown) (no (unknown) (unknown) 08/06/222050 (units ( unknown) date) unknown) (unknown) (no (unknown) (unknown) 08/06/22 (units (unkno wn) date) Range/Units unknown) (unknown) (no (unknown) (unknown) 08/06/22 (units (unkno wn) date) unknown) (unknown) (no (unknown) (unknown) 17:46 08/06/22 (units (unknown) date) unknown) (unknown) (no (unknown) (unknown) 17:57 (units (unkno wn) date) unknown) (unknown) (no (unknown) (unknown) 19:00 19:00 19:00 (units (unknown) date) unknown) (unknown) (no (unknown) (unknown) 19:00 (units (unkno wn) date) unknown) (unknown) (no (unknown) (unknown) 2. Mild right (units ( unknown) date) hydronephrosis, unknown) decreased.? Bilateral double-J ureteral stents. (unknown) (no (unknown) (unknown) 3. Renal cortical (units (unknown) date) atrophy is unknown) suspected.? Alternatively, this could be due to (unknown) (no (unknown) (unknown) 300 mg PO BID (units ( unknown) date) unknown) (unknown) (no (unknown) (unknown) 4. Fecal matter at (units (unknown) date) the gluteal cleft unknown) versus decubitus ulcer.? (unknown) (no (unknown) (unknown) 47-year-old male (units (unknown) date) with past medical unknown) history nephrolithiasis, UTI, benign tumors (unknown) (no (unknown) (unknown) 5. Nonspecific (units (unknown) date) prominence of the unknown) pancreatic head with multiple collateral (unknown) (no (unknown) (unknown) 50 mg PO BID (units (u nknown) date) unknown) (unknown) (no (unknown) (unknown) ? (units (unkno wn) date) unknown) (unknown) (no (unknown) (unknown) ?There are (units (unk nown) date) multiple collateral unknown) vessels in the region of the pancreatic head, (unknown) (no (unknown) (unknown) ABDOMEN: (units (unkno wn) date) unknown) (unknown) (no (unknown) (unknown) ALT (<50) IU/L (units (unknown) date) unknown) (unknown) (no (unknown) (unknown) ALT 29 (<50) IU/L (units (unknown) date) unknown) (unknown) (no (unknown) (unknown) AST (17-59) IU/L (units (unknown) date) unknown) (unknown) (no (unknown) (unknown) AST 21 (17-59) (units (unknown) date) IU/L unknown) (unknown) (no (unknown) (unknown) Abdomen is soft, (units (unknown) date) nondistended. unknown) Tender to palpation in the left quadrants. (unknown) (no (unknown) (unknown) Abdominal Nodes:? (units (unknown) date) No retroperitoneal unknown) or mesenteric adenopathy by size criteria.? (unknown) (no (unknown) (unknown) Activity (units (unkno wn) date) Restrictions/Additi unknown) onal Instructions: (unknown) (no (unknown) (unknown) Adrenal Glands:? (units (unknown) date) No nodule.? unknown) (unknown) (no (unknown) (unknown) After the (units (unkn own) date) administration of unknown) oral and IV contrast, axial sections were acquired (unknown) (no (unknown) (unknown) Age/Sex: 47 / M (units (unknown) date) unknown) (unknown) (no (unknown) (unknown) Albumin (3.5-5.0) (units (unknown) date) g/dL unknown) (unknown) (no (unknown) (unknown) Albumin 4.2 (units (un known) date) (3.5-5.0) g/dL unknown) (unknown) (no (unknown) (unknown) Albumin/Globulin (units (unknown) date) Ratio (1.0-2.8) unknown) (unknown) (no (unknown) (unknown) Albumin/Globulin (units (unknown) date) Ratio 1.2 (1.0-2.8) unknown) (unknown) (no (unknown) (unknown) Alkaline (units (unkno wn) date) Phosphatase unknown) (38-126) U/L (unknown) (no (unknown) (unknown) Alkaline (units (unkno wn) date) Phosphatase 94 unknown) (38-126) U/L (unknown) (no (unknown) (unknown) Allergic/Immunolog (units (unknown) date) ic unknown) (unknown) (no (unknown) (unknown) Allergic/Immunolog (units (unknown) date) ic: Denies unknown) urticaria, Denies throat swelling and Denies (unknown) (no (unknown) (unknown) Allergies (units (unkn own) date) unknown) (unknown) (no (unknown) (unknown) Allergy/AdvReac (units (unknown) date) Type Severity unknown) Reaction Status Date / Time (unknown) (no (unknown) (unknown) Approved by: Zaid (units (unknown) date) Marcial Medel on unknown) 08/06/2022 at 20:33 ? (unknown) (no (unknown) (unknown) Auscultation:?harshad (units (unknown) date) r to auscultation unknown) bilaterally (unknown) (no (unknown) (unknown) BUN (9-20) mg/dL (units (unknown) date) unknown) (unknown) (no (unknown) (unknown) BUN 21 H (9-20) (units (unknown) date) mg/dL unknown) (unknown) (no (unknown) (unknown) BUN/Creatinine (units (unknown) date) Ratio (6-22) unknown) (unknown) (no (unknown) (unknown) BUN/Creatinine (units (unknown) date) Ratio 22.1 H (6-22) unknown) (unknown) (no (unknown) (unknown) Back pain (units (unkn own) date) unknown) (unknown) (no (unknown) (unknown) Baso # (Auto) (units ( unknown) date) (0-100) /uL unknown) (unknown) (no (unknown) (unknown) Baso # (Auto) 0 (units (unknown) date) (0-100) /uL unknown) (unknown) (no (unknown) (unknown) Baso % (Auto) (units ( unknown) date) (0-2) % unknown) (unknown) (no (unknown) (unknown) Baso % (Auto) 0.5 (units (unknown) date) (0-2) % unknown) (unknown) (no (unknown) (unknown) Bedside Urine (units ( unknown) date) Bilirubin - unknown) Negative (unknown) (no (unknown) (unknown) Bedside Urine (units ( unknown) date) Glucose Negative unknown) (unknown) (no (unknown) (unknown) Bedside Urine (units ( unknown) date) Ketone - Negative unknown) (unknown) (no (unknown) (unknown) Bedside Urine (units ( unknown) date) Leukocytes ++ 125 unknown) (unknown) (no (unknown) (unknown) Bedside Urine (units ( unknown) date) Nitrite + Positive unknown) (unknown) (no (unknown) (unknown) Bedside Urine (units ( unknown) date) Occult Blood unknown) (unknown) (no (unknown) (unknown) Bedside Urine (units ( unknown) date) Protein ++ 100 unknown) (unknown) (no (unknown) (unknown) Bedside Urine (units ( unknown) date) Urobilinogen - unknown) Negative (unknown) (no (unknown) (unknown) Bedside Urine pH (units (unknown) date) 6.0 unknown) (unknown) (no (unknown) (unknown) Bilateral flank (units (unknown) date) pain unknown) (unknown) (no (unknown) (unknown) Biliary ducts:? (units (unknown) date) Unremarkable.? ? unknown) (unknown) (no (unknown) (unknown) Bladder:? (units (unkn own) date) Decompressed with unknown) Bowling catheter.? No stones.? Bladder wall appears (unknown) (no (unknown) (unknown) Blood Pressure (units (unknown) date) 166/103 H 08/06/22 unknown) 17:46 (unknown) (no (unknown) (unknown) Blood Pressure (units (unknown) date) 166/103 H unknown) (unknown) (no (unknown) (unknown) Bones:? No (units (unk nown) date) suspicious lesion. unknown) (unknown) (no (unknown) (unknown) CBC Auto Diff (units ( unknown) date) [Complete Blood unknown) Count AUTO DIFF] Stat (unknown) (no (unknown) (unknown) CMP [Comprehensive (units (unknown) date) Metabolic Panel] unknown) Stat (unknown) (no (unknown) (unknown) COMPARISON:? (units (u nknown) date) [facility] unknown) [facility], MR, MR ABDOMEN MRCP, 06/27/2022, 10:39.? (unknown) (no (unknown) (unknown) CT abdomen pelvis (units (unknown) date) w con Stat unknown) (unknown) (no (unknown) (unknown) CT also shows (units ( unknown) date) constipation, unknown) patient recommended laxatives. Patient had a big (unknown) (no (unknown) (unknown) CT scan - (units (unkn own) date) abdomen/pelvis: unknown) (unknown) (no (unknown) (unknown) CT, CT ABDOMEN (units (unknown) date) PELVIS W CON, unknown) 07/23/2022, 23:14. (unknown) (no (unknown) (unknown) Calcium (8.4-10.2) (units (unknown) date) mg/dL unknown) (unknown) (no (unknown) (unknown) Calcium 9.4 (units (un known) date) (8.4-10.2) mg/dL unknown) (unknown) (no (unknown) (unknown) Carbon Dioxide (units (unknown) date) (22-32) mmol/L unknown) (unknown) (no (unknown) (unknown) Carbon Dioxide 24 (units (unknown) date) (22-32) mmol/L unknown) (unknown) (no (unknown) (unknown) Cardio (units (unkno wn) date) unknown) (unknown) (no (unknown) (unknown) Cardiovascular (units (unknown) date) unknown) (unknown) (no (unknown) (unknown) Cardiovascular: (units (unknown) date) Denies chest pain, unknown) Denies irregular heart rhythm, Denies (unknown) (no (unknown) (unknown) Chief Complaint: (units (unknown) date) Back Pain/Injury unknown) (unknown) (no (unknown) (unknown) Chloride (98-107) (units (unknown) date) mmol/L unknown) (unknown) (no (unknown) (unknown) Chloride 104 (units (u nknown) date) (98-107) mmol/L unknown) (unknown) (no (unknown) (unknown) Clinical (units (unkno wn) date) Impression: unknown) (unknown) (no (unknown) (unknown) Comment: Findings (units (unknown) date) were discussed with unknown) Darci Baltazar PA-C at time of dictation. (unknown) (no (unknown) (unknown) Comments: (units (unkn own) date) unknown) (unknown) (no (unknown) (unknown) Const (units (unkno wn) date) unknown) (unknown) (no (unknown) (unknown) Constitutional (units (unknown) date) unknown) (unknown) (no (unknown) (unknown) Constitutional: (units (unknown) date) Denies chills, unknown) Denies fatigue, Denies fever(s), Denies frequent (unknown) (no (unknown) (unknown) Course (units (unkno wn) date) unknown) (unknown) (no (unknown) (unknown) Creatinine (units (unk nown) date) (0.66-1.25) mg/dL unknown) (unknown) (no (unknown) (unknown) Creatinine 0.95 (units (unknown) date) (0.66-1.25) mg/dL unknown) (unknown) (no (unknown) (unknown) : 1975 (units (unknown) date) Acct:[id number] unknown) (unknown) (no (unknown) (unknown) Date of Service: (units (unknown) date) 08/06/22 unknown) (unknown) (no (unknown) (unknown) Denies frequent (units (unknown) date) falls, Denies loss unknown) of vision, Denies numbness, Denies tingling (unknown) (no (unknown) (unknown) Denies loss of (units (unknown) date) vision unknown) (unknown) (no (unknown) (unknown) Denies numbness (units (unknown) date) and Denies tingling unknown) (unknown) (no (unknown) (unknown) Departure (units (unkn own) date) unknown) (unknown) (no (unknown) (unknown) Dictated by: Zaid (units (unknown) date) Marcial Medel on unknown) 08/06/2022 at 20:16 ? ? (unknown) (no (unknown) (unknown) Discharge Plan (units (unknown) date) unknown) (unknown) (no (unknown) (unknown) Discontinued (units (u nknown) date) Medications unknown) (unknown) (no (unknown) (unknown) Documented By: KM (units (unknown) date) unknown) (unknown) (no (unknown) (unknown) ED Orders (units (unkn own) date) unknown) (unknown) (no (unknown) (unknown) ENT (units (unkno wn) date) unknown) (unknown) (no (unknown) (unknown) ER Physician: (units ( unknown) date) Giovanny,Hyma P.A-C unknown) (unknown) (no (unknown) (unknown) Ears, Nose, Mouth, (units (unknown) date) and Throat: Denies unknown) change in voice, Denies dizziness, Denies (unknown) (no (unknown) (unknown) Ears:?hearing (units ( unknown) date) grossly normal unknown) bilaterally (unknown) (no (unknown) (unknown) Effort + (units (unkno wn) date) Inspection:?normal unknown) respiratory effort (unknown) (no (unknown) (unknown) Emergency Report (units (unknown) date) unknown) (unknown) (no (unknown) (unknown) Endocrine (units (unkn own) date) unknown) (unknown) (no (unknown) (unknown) Endocrine: Denies (units (unknown) date) fatigue, Denies unknown) flushing and Denies palpitations (unknown) (no (unknown) (unknown) Eos # (Auto) (units (u nknown) date) (0-450) /uL unknown) (unknown) (no (unknown) (unknown) Eos # (Auto) 200 (units (unknown) date) (0-450) /uL unknown) (unknown) (no (unknown) (unknown) Eos % (Auto) (2-4) (units (unknown) date) % unknown) (unknown) (no (unknown) (unknown) Eos % (Auto) 2.4 (units (unknown) date) (2-4) % unknown) (unknown) (no (unknown) (unknown) Esterase (units (unkno wn) date) unknown) (unknown) (no (unknown) (unknown) Estimated GFR > 60 (units (unknown) date) (>60) mL/min unknown) (unknown) (no (unknown) (unknown) Estimated GFR (units ( unknown) date) (>60) mL/min unknown) (unknown) (no (unknown) (unknown) Exam Narrative: (units (unknown) date) unknown) (unknown) (no (unknown) (unknown) Exam (units (unkno wn) date) unknown) (unknown) (no (unknown) (unknown) Eyes (units (unkno wn) date) unknown) (unknown) (no (unknown) (unknown) Eyes: Denies (units (u nknown) date) change in vision, unknown) Denies eye discharge, Denies irritation and (unknown) (no (unknown) (unknown) FINDINGS:? (units (unk nown) date) unknown) (unknown) (no (unknown) (unknown) Face and (units (unkno wn) date) sinus:?normal unknown) facial exam and sinuses nontender (unknown) (no (unknown) (unknown) Family History (units (unknown) date) (Reviewed 08/06/22 unknown) @ 20:12 by Darci Baltazar PA-C) (unknown) (no (unknown) (unknown) Father CVA (units (unk nown) date) (cerebral vascular unknown) accident) (unknown) (no (unknown) (unknown) Functional (units (unk nown) date) paraparesis unknown) (unknown) (no (unknown) (unknown) GI (units (unkno wn) date) unknown) (unknown) (no (unknown) (unknown) Gallbladder:? (units ( unknown) date) Within normal unknown) limits. (unknown) (no (unknown) (unknown) Gastrointestinal (units (unknown) date) unknown) (unknown) (no (unknown) (unknown) Gastrointestinal: (units (unknown) date) Reports abdominal unknown) pain, Denies change in bowel habits, Denies (unknown) (no (unknown) (unknown) General (units (unkno wn) date) unknown) (unknown) (no (unknown) (unknown) General:?appearanc (units (unknown) date) e normal, both eyes unknown) and all related structures (unknown) (no (unknown) (unknown) General:?cooperati (units (unknown) date) ve, healthy unknown) appearing and comfortable (unknown) (no (unknown) (unknown) General:?patient (units (unknown) date) alert, patient unknown) awake and patient oriented x3 (unknown) (no (unknown) (unknown) Genitourinary (units ( unknown) date) unknown) (unknown) (no (unknown) (unknown) Genitourinary: (units (unknown) date) Denies hematuria, unknown) Denies flank pain, Denies urinary incontinence (unknown) (no (unknown) (unknown) Globulin (1.7-4.1) (units (unknown) date) g/dL unknown) (unknown) (no (unknown) (unknown) Globulin 3.6 (units (u nknown) date) (1.7-4.1) g/dL unknown) (unknown) (no (unknown) (unknown) Glucose (70-100) (units (unknown) date) mg/dL unknown) (unknown) (no (unknown) (unknown) Glucose 101 H (units ( unknown) date) (70-100) mg/dL unknown) (unknown) (no (unknown) (unknown) HENMT (units (unkno wn) date) unknown) (unknown) (no (unknown) (unknown) HPI - Back (units (unk nown) date) Pain/Injury unknown) (unknown) (no (unknown) (unknown) HPI Narrative: (units (unknown) date) unknown) (unknown) (no (unknown) (unknown) Hct (41-53) % (units ( unknown) date) unknown) (unknown) (no (unknown) (unknown) Hct 40.4 L (41-53) (units (unknown) date) % unknown) (unknown) (no (unknown) (unknown) Head:?normal to (units (unknown) date) inspection unknown) (unknown) (no (unknown) (unknown) Heart:? No (units (unk n) date) significant unknown) findings. (unknown) (no (unknown) (unknown) Hematologic/Lympha (units (unknown) date) tic unknown) (unknown) (no (unknown) (unknown) Hematologic/Lympha (units (unknown) date) tic: Denies easy unknown) bruising (unknown) (no (unknown) (unknown) Hgb (13.5-17.5) (units (unknown) date) g/dL unknown) (unknown) (no (unknown) (unknown) Hgb 13.4 L (units (unk nown) date) (13.5-17.5) g/dL unknown) (unknown) (no (unknown) (unknown) History of Present (units (unknown) date) Illness unknown) (unknown) (no (unknown) (unknown) History of spinal (units (unknown) date) surgery unknown) (unknown) (no (unknown) (unknown) History of (units (unk nown) date) tonsillectomy unknown) (unknown) (no (unknown) (unknown) Home Medications (units (unknown) date) unknown) (unknown) (no (unknown) (unknown) Hospital, (units (unkn own) date) unknown) (unknown) (no (unknown) (unknown) Hypertension (units (u nknown) date) unknown) (unknown) (no (unknown) (unknown) IMPRESSION:? (units (u nknown) date) unknown) (unknown) (no (unknown) (unknown) INDICATIONS:? (units ( unknown) date) Flank pain; LLQ pin unknown) (unknown) (no (unknown) (unknown) Image quality:? (units (unknown) date) Excellent.? unknown) (unknown) (no (unknown) (unknown) Imaging Data (units (u nknown) date) unknown) (unknown) (no (unknown) (unknown) Initial Vital (units ( unknown) date) Signs unknown) (unknown) (no (unknown) (unknown) Initial Vital (units ( unknown) date) Signs: unknown) (unknown) (no (unknown) (unknown) Instructions: DI (units (unknown) date) for Kidney unknown) Infection, DI for Constipation (unknown) (no (unknown) (unknown) Integumentary/[place] (units (unknown) date) sts unknown) (unknown) (no (unknown) (unknown) [facility] (units (unknown) date) [address] unknown) [place] [address] (unknown) (no (unknown) (unknown) Ketorolac (units (unkn own) date) Tromethamine unknown) (Ketorolac 30 Mg/Ml Vial) 15 mg IV NOW ONE (unknown) (no (unknown) (unknown) Kidneys and (units (un known) date) Ureters:? Mild unknown) right hydronephrosis, decreased.? Small (unknown) (no (unknown) (unknown) Lab Data (units (unkno wn) date) unknown) (unknown) (no (unknown) (unknown) Lab Results (units (un known) date) unknown) (unknown) (no (unknown) (unknown) Label Comments: (units (unknown) date) unknown) (unknown) (no (unknown) (unknown) Labs within normal (units (unknown) date) limits. UA positive unknown) for UTI. CT shows evidence of (unknown) (no (unknown) (unknown) Labs: (units (unkno wn) date) unknown) (unknown) (no (unknown) (unknown) Lactate (0.7-2.1) (units (unknown) date) mmol/L unknown) (unknown) (no (unknown) (unknown) Lactate (Lactic (units (unknown) date) Acid) Stat unknown) (unknown) (no (unknown) (unknown) Lactate 1.8 (units (un known) date) (0.7-2.1) mmol/L unknown) (unknown) (no (unknown) (unknown) Last Admin: (units (un known) date) 08/06/22 19:26 unknown) Dose: 15 mg (unknown) (no (unknown) (unknown) Lipase (23-300) (units (unknown) date) U/L unknown) (unknown) (no (unknown) (unknown) Lipase 73 (23-300) (units (unknown) date) U/L unknown) (unknown) (no (unknown) (unknown) Lipase Stat (units (un known) date) unknown) (unknown) (no (unknown) (unknown) Liver:? Left lobe (units (unknown) date) calcification or unknown) metallic foreign body, unchanged.? No (unknown) (no (unknown) (unknown) Lung bases:? (units (u nknown) date) Unremarkable.? ? unknown) (unknown) (no (unknown) (unknown) Lymph # (Auto) (units (unknown) date) (3880-0889) /uL unknown) (unknown) (no (unknown) (unknown) Lymph # (Auto) (units (unknown) date) 1200 (1036-8500) unknown) /uL (unknown) (no (unknown) (unknown) Lymph % (Auto) (units (unknown) date) (25-40) % unknown) (unknown) (no (unknown) (unknown) Lymph % (Auto) (units (unknown) date) 13.1 L (25-40) % unknown) (unknown) (no (unknown) (unknown) MCH (26-34) PG (units (unknown) date) unknown) (unknown) (no (unknown) (unknown) MCH 27.0 (26-34) (units (unknown) date) PG unknown) (unknown) (no (unknown) (unknown) MCHC (30-36) % (units (unknown) date) unknown) (unknown) (no (unknown) (unknown) MCHC 33.1 (30-36) (units (unknown) date) % unknown) (unknown) (no (unknown) (unknown) MCV (80-100) fL (units (unknown) date) unknown) (unknown) (no (unknown) (unknown) MCV 81.4 (80-100) (units (unknown) date) fL unknown) (unknown) (no (unknown) (unknown) MDM - Back (units (unk nown) date) Pain/Injury unknown) (unknown) (no (unknown) (unknown) MDM Narrative (units ( unknown) date) unknown) (unknown) (no (unknown) (unknown) Medical History (units (unknown) date) (Reviewed 08/06/22 unknown) @ 20:11 by Darci Baltazar PA-C) (unknown) (no (unknown) (unknown) Medical decision (units (unknown) date) making narrative: unknown) (unknown) (no (unknown) (unknown) Medication (units (unk nown) date) Instructions unknown) Recorded Confirmed (unknown) (no (unknown) (unknown) Medication (units (unk nown) date) Instructions unknown) Recorded (unknown) (no (unknown) (unknown) Miscellaneous: No (units (unknown) date) inguinal hernias unknown) are seen.? Fecal matter at the gluteal cleft (unknown) (no (unknown) (unknown) [place] # (Auto) (units ( unknown) date) (0-900) /uL unknown) (unknown) (no (unknown) (unknown) [place] # (Auto) 400 (units (unknown) date) (0-900) /uL unknown) (unknown) (no (unknown) (unknown) [place] % (Auto) (units ( unknown) date) (3-14) % unknown) (unknown) (no (unknown) (unknown) [place] % (Auto) 4.7 (units (unknown) date) (3-14) % unknown) (unknown) (no (unknown) (unknown) Mother Myocardial (units (unknown) date) infarct unknown) (unknown) (no (unknown) (unknown) Mouth:?oral (units (un known) date) mucosae normal unknown) (unknown) (no (unknown) (unknown) Musculoskeletal (units (unknown) date) unknown) (unknown) (no (unknown) (unknown) Musculoskeletal: (units (unknown) date) Denies back pain, unknown) Denies muscle weakness, Denies neck pain, (unknown) (no (unknown) (unknown) Narrative (units (unkn own) date) unknown) (unknown) (no (unknown) (unknown) Neck (units (unkno wn) date) unknown) (unknown) (no (unknown) (unknown) Neck:?normal (units (u nknown) date) visual inspection unknown) and no lymphadenopathy noted (unknown) (no (unknown) (unknown) Neuro (units (unkno wn) date) unknown) (unknown) (no (unknown) (unknown) Neurogenic pain (units (unknown) date) unknown) (unknown) (no (unknown) (unknown) Neurologic (units (unk nown) date) unknown) (unknown) (no (unknown) (unknown) Neurologic: Denies (units (unknown) date) behavioral changes, unknown) Denies confusion, Denies dizziness, (unknown) (no (unknown) (unknown) Neut # (Auto) (units ( unknown) date) (6755-4760) /uL unknown) (unknown) (no (unknown) (unknown) Neut # (Auto) 7400 (units (unknown) date) H (9129-5071) /uL unknown) (unknown) (no (unknown) (unknown) Neut % (Auto) (units ( unknown) date) (50-75) % unknown) (unknown) (no (unknown) (unknown) Neut % (Auto) 79.3 (units (unknown) date) H (50-75) % unknown) (unknown) (no (unknown) (unknown) New (units (unkno wn) date) unknown) (unknown) (no (unknown) (unknown) No Action (units (unkn own) date) unknown) (unknown) (no (unknown) (unknown) Normal (units (unkno wn) date) unknown) (unknown) (no (unknown) (unknown) Nose:?external (units (unknown) date) nose normal unknown) (unknown) (no (unknown) (unknown) Ordered: (units (unkno wn) date) unknown) (unknown) (no (unknown) (unknown) Orders (units (unkno wn) date) unknown) (unknown) (no (unknown) (unknown) Oxygen Delivery (units (unknown) date) Method 08/06/22 unknown) 17:46 (unknown) (no (unknown) (unknown) Oxygen Delivery (units (unknown) date) Method Room Air unknown) Room Air (unknown) (no (unknown) (unknown) PELVIS: (units (unkno wn) date) unknown) (unknown) (no (unknown) (unknown) PROCEDURE:? CT (units (unknown) date) ABDOMEN PELVIS W unknown) CON (unknown) (no (unknown) (unknown) Pancreas:? No (units (u nknown) date) peripancreatic unknown) fluid collection.? The pancreatic head is prominent (unknown) (no (unknown) (unknown) Patient (units (unkno wn) date) Disposition: Home unknown) (unknown) (no (unknown) (unknown) Patient History (units (unknown) date) unknown) (unknown) (no (unknown) (unknown) Patient: Eleazar (units ( unknown) date) Yann Jones MR#: [id number] unknown) (unknown) (no (unknown) (unknown) Pelvic Nodes: No (units (unknown) date) enlarged lymph unknown) nodes.? (unknown) (no (unknown) (unknown) Pelvic Organs:? No (units (unknown) date) free fluid. unknown) (unknown) (no (unknown) (unknown) Peritoneum:? No (units (unknown) date) abnormal unknown) intraperitoneal fluid.? No free air.? (unknown) (no (unknown) (unknown) Plt Count (units (unkn own) date) (150-400) X103/uL unknown) (unknown) (no (unknown) (unknown) Plt Count 377 (units ( unknown) date) (150-400) X103/uL unknown) (unknown) (no (unknown) (unknown) Positive CVA (units (u nknown) date) tenderness. unknown) (unknown) (no (unknown) (unknown) Potassium (units (unkn own) date) (3.4-5.1) mmol/L unknown) (unknown) (no (unknown) (unknown) Potassium 4.2 (units ( unknown) date) (3.4-5.1) mmol/L unknown) (unknown) (no (unknown) (unknown) Prescriptions: (units (unknown) date) unknown) (unknown) (no (unknown) (unknown) Previous Rx's (units ( unknown) date) unknown) (unknown) (no (unknown) (unknown) Psychiatric (units (un known) date) unknown) (unknown) (no (unknown) (unknown) Psychiatric: Denies (units (unknown) date) anxiety, Denies unknown) behavioral changes, Denies confusion, Denies (unknown) (no (unknown) (unknown) Pulse Oximetry 96 (units (unknown) date) 08/06/22 17:46 unknown) (unknown) (no (unknown) (unknown) Pulse Oximetry 96 (units (unknown) date) 96 unknown) (unknown) (no (unknown) (unknown) Pulse Rate 96 H (units (unknown) date) 08/06/22 17:46 unknown) (unknown) (no (unknown) (unknown) Pulse Rate 96 H 93 (units (unknown) date) H unknown) (unknown) (no (unknown) (unknown) Pyelonephritis, (units (unknown) date) Constipation unknown) (unknown) (no (unknown) (unknown) RBC (4.5-5.9) (units ( unknown) date) X106/uL unknown) (unknown) (no (unknown) (unknown) RBC 4.96 (4.5-5.9) (units (unknown) date) X106/uL unknown) (unknown) (no (unknown) (unknown) RDW (11.6-14.8) % (units (unknown) date) unknown) (unknown) (no (unknown) (unknown) RDW 17.4 H (units (unk nown) date) (11.6-14.8) % unknown) (unknown) (no (unknown) (unknown) ROS Unobtainable: (units (unknown) date) All systems unknown) reviewed + are unremarkable except as noted in HPI (unknown) (no (unknown) (unknown) Radiologist's (units ( unknown) date) Impression: unknown) (unknown) (no (unknown) (unknown) Rate:?regular rate (units (unknown) date) unknown) (unknown) (no (unknown) (unknown) Referrals: (units (unk nown) date) unknown) (unknown) (no (unknown) (unknown) Related Data (units (u nknown) date) unknown) (unknown) (no (unknown) (unknown) Renal (units (unkno wn) date) unknown) (unknown) (no (unknown) (unknown) Resp (units (unkno wn) date) unknown) (unknown) (no (unknown) (unknown) Respiratory Rate (units (unknown) date) 16 08/06/22 17:46 unknown) (unknown) (no (unknown) (unknown) Respiratory Rate (units (unknown) date) 16 unknown) (unknown) (no (unknown) (unknown) Respiratory (units (un known) date) unknown) (unknown) (no (unknown) (unknown) Respiratory: Denies (units (unknown) date) cough, Denies unknown) dyspnea, Denies dyspnea on exertion and Denies (unknown) (no (unknown) (unknown) Result diagrams: (units (unknown) date) unknown) (unknown) (no (unknown) (unknown) Review of Systems (units (unknown) date) unknown) (unknown) (no (unknown) (unknown) Rhythm:?regular (units (unknown) date) rhythm unknown) (unknown) (no (unknown) (unknown) Rx Instructions: (units (unknown) date) unknown) (unknown) (no (unknown) (unknown) 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 unknown) (unknown) (no (unknown) (unknown) Signed By: (units (unk nown) date) unknown) (unknown) (no (unknown) (unknown) [place] (units (unkno wn) date) unknown) (unknown) (no (unknown) (unknown) Skin/Breast: (units (u nknown) date) Denies pruritus, unknown) Denies erythema, Denies rash and Denies wounds (unknown) (no (unknown) (unknown) Smoking Status: (units (unknown) date) Former smoker unknown) (unknown) (no (unknown) (unknown) Social History (units (unknown) date) (Reviewed 08/06/22 unknown) @ 20:12 by Darci Baltazar PA-C) (unknown) (no (unknown) (unknown) Sodium (137-145) (units (unknown) date) mmol/L unknown) (unknown) (no (unknown) (unknown) Sodium 138 (units (unk nown) date) (137-145) mmol/L unknown) (unknown) (no (unknown) (unknown) Source: patient (units (unknown) date) and EMS unknown) (unknown) (no (unknown) (unknown) Spleen:? No (units (un known) date) splenomegaly. unknown) (unknown) (no (unknown) (unknown) Stated Complaint: (units (unknown) date) back pain, previous unknown) kidney surgery (unknown) (no (unknown) (unknown) Stomach and (units (un known) date) Bowel:? Prominent unknown) stool in the rectum.? A few colonic diverticuli.? (unknown) (no (unknown) (unknown) Stop: 08/06/22 (units (unknown) date) 18:56 unknown) (unknown) (no (unknown) (unknown) Substance Use (units ( unknown) date) Type: does not use unknown) (unknown) (no (unknown) (unknown) Surgical History (units (unknown) date) (Reviewed 08/06/22 unknown) @ 20:12 by Darci Baltazar PA-C) (unknown) (no (unknown) (unknown) TECHNIQUE:? (units (un known) date) unknown) (unknown) (no (unknown) (unknown) Take 1 capsule by (units (unknown) date) mouth twice a day unknown) for chronic back pain (unknown) (no (unknown) (unknown) Take 1 tablet by (units (unknown) date) mouth twice a day unknown) (unknown) (no (unknown) (unknown) Temperature 97.8 F (units (unknown) date) 08/06/22 17:46 unknown) (unknown) (no (unknown) (unknown) Temperature 97.8 F (units (unknown) date) unknown) (unknown) (no (unknown) (unknown) Throat:?posterior (units (unknown) date) oropharynx normal unknown) (unknown) (no (unknown) (unknown) Time Seen by (units (u nknown) date) Provider: 08/06/22 unknown) 17:57 (unknown) (no (unknown) (unknown) Total Bilirubin (units (unknown) date) (0.2-1.3) mg/dL unknown) (unknown) (no (unknown) (unknown) Total Bilirubin (units (unknown) date) 0.5 (0.2-1.3) mg/dL unknown) (unknown) (no (unknown) (unknown) Total Protein (units ( unknown) date) (6.3-8.2) g/dL unknown) (unknown) (no (unknown) (unknown) Total Protein 7.8 (units (unknown) date) (6.3-8.2) g/dL unknown) (unknown) (no (unknown) (unknown) Urine Dip (units (unkn own) date) unknown) (unknown) (no (unknown) (unknown) Urine Specific (units (unknown) date) [place] 1.025 unknown) (unknown) (no (unknown) (unknown) [facility], (units (unknown) date) CT, CT ABDOMEN unknown) PELVIS WITH CONTRAST, 01/11/2021, 13:06.? [place] (unknown) (no (unknown) (unknown) Ventral Wall: ? No (units (unknown) date) hernia.? unknown) (unknown) (no (unknown) (unknown) Vessels:? Aorta (units (unknown) date) and inferior vena unknown) cava are normal in size.? (unknown) (no (unknown) (unknown) Vital Signs - 8 hr (units (unknown) date) unknown) (unknown) (no (unknown) (unknown) Vital Signs (units (un known) date) unknown) (unknown) (no (unknown) (unknown) Vital signs: (units (u nknown) date) unknown) (unknown) (no (unknown) (unknown) WBC (4.5-11.0) (units (unknown) date) X103/uL unknown) (unknown) (no (unknown) (unknown) WBC 9.3 (4.5-11.0) (units (unknown) date) X103/uL unknown) (unknown) (no (unknown) (unknown) You were evaluated (units (unknown) date) in the ED today for unknown) flank pain. Your labs were normal. Your (unknown) (no (unknown) (unknown) Danika García, (units (unknown) date) PA-C [Primary Care unknown) Provider] (unknown) (no (unknown) (unknown) [Embedded Image (units (unknown) date) Not Available] unknown) (unknown) (no (unknown) (unknown) adjustment (units (unk nown) date) unknown) (unknown) (no (unknown) (unknown) alcohol intake (units (unknown) date) frequency: unknown) holidays/special occasions only (unknown) (no (unknown) (unknown) alcohol intake: (units (unknown) date) current unknown) (unknown) (no (unknown) (unknown) and Denies (units (unk nown) date) orthopnea unknown) (unknown) (no (unknown) (unknown) and Denies urinary (units (unknown) date) urgency unknown) (unknown) (no (unknown) (unknown) and Denies (units (unk nown) date) weakness unknown) (unknown) (no (unknown) (unknown) and below (units (unkn own) date) unknown) (unknown) (no (unknown) (unknown) antibiotic, (units (un known) date) however his back unknown) pain has worsened. Patient also endorses left (unknown) (no (unknown) (unknown) appendix.? No (units ( unknown) date) small bowel unknown) obstruction.? Stomach is not distended. (unknown) (no (unknown) (unknown) bowel movement (units (unknown) date) after some unknown) disimpacting help from the nursing staff. Impacted (unknown) (no (unknown) (unknown) breath, nausea, (units (unknown) date) vomiting, dysuria, unknown) lightheadedness, dizziness, syncope. (unknown) (no (unknown) (unknown) decubitus ulcer. (units (unknown) date) unknown) (unknown) (no (unknown) (unknown) depression, Denies (units (unknown) date) homicidal ideation unknown) and Denies suicidal ideation (unknown) (no (unknown) (unknown) diarrhea, Denies (units (unknown) date) nausea and Denies unknown) vomiting (unknown) (no (unknown) (unknown) doxycycline (units (un known) date) hyclate 100 mg unknown) tablet 100 mg PO BID 10 days #20 tabs 08/06/22 (unknown) (no (unknown) (unknown) doxycycline (units (un known) date) hyclate 100 mg unknown) tablet (unknown) (no (unknown) (unknown) edema given the (units (unknown) date) change in the unknown) short-term interval. (unknown) (no (unknown) (unknown) enhancement (units (un known) date) appears somewhat unknown) heterogeneous on the left.? Bilateral double-J (unknown) (no (unknown) (unknown) falls, Denies (units ( unknown) date) lethargy and Denies unknown) weakness (unknown) (no (unknown) (unknown) from the (units (unkno wn) date) unknown) (unknown) (no (unknown) (unknown) gabapentin AdvReac (units (unknown) date) Shakiness Verified unknown) 08/06/22 17:46 (unknown) (no (unknown) (unknown) household members: (units (unknown) date) spouse, children, unknown) friend(s) and other (unknown) (no (unknown) (unknown) improving (units (unkn own) date) unknown) (unknown) (no (unknown) (unknown) in size. (units (unkno wn) date) unknown) (unknown) (no (unknown) (unknown) in the rectum. (units (unknown) date) Patient has urology unknown) follow-up in August. ED return precautions (unknown) (no (unknown) (unknown) infection. Your (units (unknown) date) antibiotic is being unknown) switched out to doxycycline. Please stop (unknown) (no (unknown) (unknown) ketorolac 10 mg (units (unknown) date) tablet 10 mg PO Q8H unknown) PRN pain #14 tabs 07/30/22 (unknown) (no (unknown) (unknown) ketorolac 10 mg (units (unknown) date) tablet unknown) (unknown) (no (unknown) (unknown) kidney stones.? (units (unknown) date) There is thinning unknown) of the renal cortex compared to the prior CT.? (unknown) (no (unknown) (unknown) leave on most (units ( unknown) date) painful area for 12 unknown) hrs (unknown) (no (unknown) (unknown) lesion.? ? (units (unk nown) date) unknown) (unknown) (no (unknown) (unknown) lidocaine 5 % (units ( unknown) date) topical patch 1 unknown) patch topical DAILY #15 ea 07/11/22 (unknown) (no (unknown) (unknown) lidocaine (units (unkn own) date) [Lidoderm] 5 % unknown) adhesive patch,medicated (unknown) (no (unknown) (unknown) lightheadedness, (units (unknown) date) Denies unknown) palpitations, Denies dyspnea, Denies dyspnea on exertion (unknown) (no (unknown) (unknown) lipase, type and (units (unknown) date) screen, UA, CT unknown) abdomen pelvis. Will give Toradol for pain. (unknown) (no (unknown) (unknown) lung bases to the (units (unknown) date) pubic symphysis.? unknown) Coronal and sagittal reformats were (unknown) (no (unknown) (unknown) may take 300 mg of (units (unknown) date) magnesium citrate unknown) for 2 days, followed by MiraLax nightly for (unknown) (no (unknown) (unknown) metoprolol (units (unk nown) date) tartrate 50 mg unknown) tablet 50 mg PO BID 10/15/21 10/15/21 (unknown) (no (unknown) (unknown) metoprolol (units (unk nown) date) tartrate 50 mg unknown) tablet (unknown) (no (unknown) (unknown) mg tablet (units (unkn own) date) (Percocet) unknown) (unknown) (no (unknown) (unknown) mg-trimethoprim (units (unknown) date) 160 mg tablet unknown) (unknown) (no (unknown) (unknown) morphine Allergy (units (unknown) date) Nightmare Verified unknown) 08/06/22 17:46 (unknown) (no (unknown) (unknown) neck pain, Denies (units (unknown) date) sore throat and unknown) Denies throat swelling (unknown) (no (unknown) (unknown) nonobstructing (units (unknown) date) right unknown) (unknown) (no (unknown) (unknown) of mA and/or kV (units (unknown) date) according to unknown) patient size. (unknown) (no (unknown) (unknown) of the spinal (units ( unknown) date) caught, paralysis unknown) of both lower limbs, indwelling Bowling catheter (unknown) (no (unknown) (unknown) oxycodone-acetamin (units (unknown) date) ophen 5 mg-325 1 unknown) tab PO Q8H PRN pain #14 tabs 07/30/22 (unknown) (no (unknown) (unknown) oxycodone-acetamin (units (unknown) date) ophen [Percocet] unknown) 5-325 mg tablet (unknown) (no (unknown) (unknown) performed.? For (units (unknown) date) unknown) (unknown) (no (unknown) (unknown) persistently (units (u nknown) date) vomiting you have unknown) fever, chills, worsening abdominal or back pain. (unknown) (no (unknown) (unknown) phenazopyridine (units (unknown) date) 100 mg tablet 100 unknown) mg PO Q8H PRN bladder pain #10 07/30/22 (unknown) (no (unknown) (unknown) phenazopyridine (units (unknown) date) [Pyridium] 100 mg unknown) tablet (unknown) (no (unknown) (unknown) possibly atrophic (units (unknown) date) kidneys. Patient's unknown) antibiotic switched out to doxycycline. (unknown) (no (unknown) (unknown) pregabalin 300 mg (units (unknown) date) capsule (Lyrica) unknown) 300 mg PO BID 10/15/21 10/15/21 (unknown) (no (unknown) (unknown) pregabalin (units (unk nown) date) [Lyrica] 300 mg unknown) capsule (unknown) (no (unknown) (unknown) presents to the ED (units (unknown) date) with bilateral unknown) flank pain. Concern for UTI versus (unknown) (no (unknown) (unknown) presents to the ED (units (unknown) date) with bilateral unknown) flank pain. Patient was seen in the ED on (unknown) (no (unknown) (unknown) pyelonephritis and (units (unknown) date) some other findings unknown) such as a prominent pancreatic head, (unknown) (no (unknown) (unknown) pyelonephritis (units (unknown) date) versus unknown) nephrolithiasis versus diverticulitis versus constipation (unknown) (no (unknown) (unknown) radiation dose (units (unknown) date) reduction, the unknown) following was used:? automated exposure control, (unknown) (no (unknown) (unknown) seen in (units (unkno wn) date) unknown) (unknown) (no (unknown) (unknown) sided abdominal (units (unknown) date) pain. Patient unknown) denies fever, chills, chest pain, shortness of (unknown) (no (unknown) (unknown) similar.? (units (unkn own) date) unknown) (unknown) (no (unknown) (unknown) stents.? Ureters (units (unknown) date) are prominent with unknown) trace periureteral stranding. (unknown) (no (unknown) (unknown) stool consistent (units (unknown) date) with possible stool unknown) in the CT read. No decubitus ulcer found (unknown) (no (unknown) (unknown) sulfamethoxazole (units (unknown) date) 800 1 tab PO Q12H unknown) 10 days #20 tabs 07/30/22 (unknown) (no (unknown) (unknown) sulfamethoxazole-t (units (unknown) date) rimethoprim unknown) [Bactrim DS] 800-160 mg tablet (unknown) (no (unknown) (unknown) suspicious (units (unk nown) date) unknown) (unknown) (no (unknown) (unknown) the Bactrim and (units (unknown) date) start the unknown) doxycycline. Your CT also shows constipation. You (unknown) (no (unknown) (unknown) the next 2 months. (units (unknown) date) Please return to unknown) the ED if your symptoms worsen, you are (unknown) (no (unknown) (unknown) the setting of (units (unknown) date) pyelonephritis.? unknown) Recommend correlation with urinalysis. (unknown) (no (unknown) (unknown) thickened.? (units (un known) date) unknown) (unknown) (no (unknown) (unknown) unchanged. (units (unk nown) date) unknown) (unknown) (no (unknown) (unknown) ureteral (units (unkno wn) date) unknown) (unknown) (no (unknown) (unknown) urine was positive (units (unknown) date) for a kidney unknown) infection. Your CT scan also shows a kidney (unknown) (no (unknown) (unknown) versus other (units (u nknown) date) intra-abdominal unknown) pathology versus other. Will obtain labs, lactate, (unknown) (no (unknown) (unknown) versus (units (unkno wn) date) unknown) (unknown) (no (unknown) (unknown) vessels appear (units (unknown) date) unknown) (unknown) (no (unknown) (unknown) were discussed (units (unknown) date) with patient. unknown) Patient verbalized understanding. (unknown) (no (unknown) (unknown) wheezing (units (unkno wn) date) unknown) (unknown) (no (unknown) (unknown) zinc oxide 15 % (units (unknown) date) cream unknown) (unknown) (no (unknown) (unknown) zinc oxide 15 % (units (unknown) date) topical cream 1 unknown) applic topical BID #99 grams 07/30/22 Result panel [id number] (unknown) (no (unknown) (unknown) (no value) (units (unk nown) date) unknown) (unknown) (no (unknown) (unknown) <Electronically (units (unknown) date) signed by Darci brito) Ignacio Giovanny> (unknown) (no (unknown) (unknown) <Electronically (units (unknown) date) signed by Tian unknown) Emilee Klein.O.> (unknown) (no (unknown) (unknown) <Electronically (units (unknown) date) signed by Tian brito) Jacquelyn HebertO.> (unknown) (no (unknown) (unknown) <Darci Baltazar PA-C (units (unknown) date) - Last Filed: unknown) 08/06/22 20:50> (unknown) (no (unknown) (unknown) <Tian Hebert, (units (unknown) date) DO - Last Filed: unknown) 08/06/22 21:11> (unknown) (no (unknown) (unknown) <cosigner> (units (unk nown) date) unknown) (unknown) (no (unknown) (unknown) (Bactrim DS) (units (u nknown) date) unknown) (unknown) (no (unknown) (unknown) (Lidoderm) (units (unk nown) date) unknown) (unknown) (no (unknown) (unknown) (Pyridium) tabs (units (unknown) date) unknown) (unknown) (no (unknown) (unknown) [id number] (units (unkno wn) date) unknown) (unknown) (no (unknown) (unknown) 1 applic topical (units (unknown) date) BID Qty: 99 0RF unknown) (unknown) (no (unknown) (unknown) 1 patch TOP DAILY (units (unknown) date) Qty: 15 0RF unknown) (unknown) (no (unknown) (unknown) 1 tab PO Q12H 10 (units (unknown) date) Days Qty: 20 0RF unknown) (unknown) (no (unknown) (unknown) 1 tab PO Q8H PRN (units (unknown) date) (Reason: pain) Qty: unknown) 14 0RF (unknown) (no (unknown) (unknown) 1. Enhancement of (units (unknown) date) the left kidney unknown) appears somewhat heterogeneous.? This could be (unknown) (no (unknown) (unknown) 10 mg PO Q8H PRN (units (unknown) date) (Reason: pain) Qty: unknown) 14 0RF (unknown) (no (unknown) (unknown) 100 mg PO BID 10 (units (unknown) date) Days Qty: 20 0RF unknown) (unknown) (no (unknown) (unknown) 100 mg PO Q8H PRN (units (unknown) date) (Reason: bladder unknown) pain) Qty: 10 0RF (unknown) (no (unknown) (unknown) 07/30/2022, (units (un known) date) prescribe Bactrim unknown) for a UTI. Patient states he has been taking the (unknown) (no (unknown) (unknown) 08/06/22 08/06/22 (units (unknown) date) 08/06/22 unknown) Range/Units (unknown) (no (unknown) (unknown) 08/06/22 18:57 (units (unknown) date) unknown) (unknown) (no (unknown) (unknown) 08/06/22 19:00 (units (unknown) date) unknown) (unknown) (no (unknown) (unknown) 08/06/222050 (units ( unknown) date) unknown) (unknown) (no (unknown) (unknown) 08/06/222110 (units ( unknown) date) unknown) (unknown) (no (unknown) (unknown) 08/06/22 (units (unkno wn) date) Range/Units unknown) (unknown) (no (unknown) (unknown) 12/19/22 (units (unkno wn) date) unknown) (unknown) (no (unknown) (unknown) 17:46 08/06/22 (units (unknown) date) unknown) (unknown) (no (unknown) (unknown) 17:57 (units (unkno wn) date) unknown) (unknown) (no (unknown) (unknown) 19:00 19:00 19:00 (units (unknown) date) unknown) (unknown) (no (unknown) (unknown) 19:00 (units (unkno wn) date) unknown) (unknown) (no (unknown) (unknown) 2. Mild right (units ( unknown) date) hydronephrosis, unknown) decreased.? Bilateral double-J ureteral stents. (unknown) (no (unknown) (unknown) 3. Renal cortical (units (unknown) date) atrophy is unknown) suspected.? Alternatively, this could be due to (unknown) (no (unknown) (unknown) 300 mg PO BID (units ( unknown) date) unknown) (unknown) (no (unknown) (unknown) 4. Fecal matter at (units (unknown) date) the gluteal cleft unknown) versus decubitus ulcer.? (unknown) (no (unknown) (unknown) 47-year-old male (units (unknown) date) with past medical unknown) history nephrolithiasis, UTI, benign tumors (unknown) (no (unknown) (unknown) 5. Nonspecific (units (unknown) date) prominence of the unknown) pancreatic head with multiple collateral (unknown) (no (unknown) (unknown) 50 mg PO BID (units (u nknown) date) unknown) (unknown) (no (unknown) (unknown) ? (units (unkno wn) date) unknown) (unknown) (no (unknown) (unknown) ?There are (units (unk nown) date) multiple collateral unknown) vessels in the region of the pancreatic head, (unknown) (no (unknown) (unknown) ABDOMEN: (units (unkno wn) date) unknown) (unknown) (no (unknown) (unknown) ALT (<50) IU/L (units (unknown) date) unknown) (unknown) (no (unknown) (unknown) ALT 29 (<50) IU/L (units (unknown) date) unknown) (unknown) (no (unknown) (unknown) AST (17-59) IU/L (units (unknown) date) unknown) (unknown) (no (unknown) (unknown) AST 21 (17-59) (units (unknown) date) IU/L unknown) (unknown) (no (unknown) (unknown) Abdomen is soft, (units (unknown) date) nondistended. unknown) Tender to palpation in the left quadrants. (unknown) (no (unknown) (unknown) Abdominal Nodes:? (units (unknown) date) No retroperitoneal unknown) or mesenteric adenopathy by size criteria.? (unknown) (no (unknown) (unknown) Activity (units (unkno wn) date) Restrictions/Additi unknown) onal Instructions: (unknown) (no (unknown) (unknown) Adrenal Glands:? (units (unknown) date) No nodule.? unknown) (unknown) (no (unknown) (unknown) After the (units (unkn own) date) administration of unknown) oral and IV contrast, axial sections were acquired (unknown) (no (unknown) (unknown) Age/Sex: 47 / M (units (unknown) date) unknown) (unknown) (no (unknown) (unknown) Albumin (3.5-5.0) (units (unknown) date) g/dL unknown) (unknown) (no (unknown) (unknown) Albumin 4.2 (units (un known) date) (3.5-5.0) g/dL unknown) (unknown) (no (unknown) (unknown) Albumin/Globulin (units (unknown) date) Ratio (1.0-2.8) unknown) (unknown) (no (unknown) (unknown) Albumin/Globulin (units (unknown) date) Ratio 1.2 (1.0-2.8) unknown) (unknown) (no (unknown) (unknown) Alkaline (units (unkno wn) date) Phosphatase unknown) (38-126) U/L (unknown) (no (unknown) (unknown) Alkaline (units (unkno wn) date) Phosphatase 94 unknown) (38-126) U/L (unknown) (no (unknown) (unknown) Allergic/Immunolog (units (unknown) date) ic unknown) (unknown) (no (unknown) (unknown) Allergic/Immunolog (units (unknown) date) ic: Denies unknown) urticaria, Denies throat swelling and Denies (unknown) (no (unknown) (unknown) Allergies (units (unkn own) date) unknown) (unknown) (no (unknown) (unknown) Allergy/AdvReac (units (unknown) date) Type Severity unknown) Reaction Status Date / Time (unknown) (no (unknown) (unknown) Approved by: Zaid (units (unknown) date) Marcial Medel on unknown) 08/06/2022 at 20:33 ? (unknown) (no (unknown) (unknown) Auscultation:?harshad (units (unknown) date) r to auscultation unknown) bilaterally (unknown) (no (unknown) (unknown) BUN (9-20) mg/dL (units (unknown) date) unknown) (unknown) (no (unknown) (unknown) BUN 21 H (9-20) (units (unknown) date) mg/dL unknown) (unknown) (no (unknown) (unknown) BUN/Creatinine (units (unknown) date) Ratio (6-22) unknown) (unknown) (no (unknown) (unknown) BUN/Creatinine (units (unknown) date) Ratio 22.1 H (6-22) unknown) (unknown) (no (unknown) (unknown) Back pain (units (unkn own) date) unknown) (unknown) (no (unknown) (unknown) Baso # (Auto) (units ( unknown) date) (0-100) /uL unknown) (unknown) (no (unknown) (unknown) Baso # (Auto) 0 (units (unknown) date) (0-100) /uL unknown) (unknown) (no (unknown) (unknown) Baso % (Auto) (units ( unknown) date) (0-2) % unknown) (unknown) (no (unknown) (unknown) Baso % (Auto) 0.5 (units (unknown) date) (0-2) % unknown) (unknown) (no (unknown) (unknown) Bedside Urine (units ( unknown) date) Bilirubin - unknown) Negative (unknown) (no (unknown) (unknown) Bedside Urine (units ( unknown) date) Glucose Negative unknown) (unknown) (no (unknown) (unknown) Bedside Urine (units ( unknown) date) Ketone - Negative unknown) (unknown) (no (unknown) (unknown) Bedside Urine (units ( unknown) date) Leukocytes ++ 125 unknown) (unknown) (no (unknown) (unknown) Bedside Urine (units ( unknown) date) Nitrite + Positive unknown) (unknown) (no (unknown) (unknown) Bedside Urine (units ( unknown) date) Occult Blood unknown) (unknown) (no (unknown) (unknown) Bedside Urine (units ( unknown) date) Protein ++ 100 unknown) (unknown) (no (unknown) (unknown) Bedside Urine (units ( unknown) date) Urobilinogen - unknown) Negative (unknown) (no (unknown) (unknown) Bedside Urine pH (units (unknown) date) 6.0 unknown) (unknown) (no (unknown) (unknown) Bilateral flank (units (unknown) date) pain unknown) (unknown) (no (unknown) (unknown) Biliary ducts:? (units (unknown) date) Unremarkable.? ? unknown) (unknown) (no (unknown) (unknown) Bladder:? (units (unkn own) date) Decompressed with unknown) Bowling catheter.? No stones.? Bladder wall appears (unknown) (no (unknown) (unknown) Blood Pressure (units (unknown) date) 166/103 H 08/06/22 unknown) 17:46 (unknown) (no (unknown) (unknown) Blood Pressure (units (unknown) date) 166/103 H unknown) (unknown) (no (unknown) (unknown) Bones:? No (units (unk nown) date) suspicious lesion. unknown) (unknown) (no (unknown) (unknown) CBC Auto Diff (units ( unknown) date) [Complete Blood unknown) Count AUTO DIFF] Stat (unknown) (no (unknown) (unknown) CMP [Comprehensive (units (unknown) date) Metabolic Panel] unknown) Stat (unknown) (no (unknown) (unknown) COMPARISON:? (units (u nknown) date) [place] unknown) [facility], MR, MR ABDOMEN [facility], 06/27/2022, 10:39.? (unknown) (no (unknown) (unknown) CT abdomen pelvis (units (unknown) date) w con Stat unknown) (unknown) (no (unknown) (unknown) CT also shows (units ( unknown) date) constipation, unknown) patient recommended laxatives. Patient had a big (unknown) (no (unknown) (unknown) CT scan - (units (unkn own) date) abdomen/pelvis: unknown) (unknown) (no (unknown) (unknown) CT, CT ABDOMEN (units (unknown) date) PELVIS W CON, unknown) 07/23/2022, 23:14. (unknown) (no (unknown) (unknown) Calcium (8.4-10.2) (units (unknown) date) mg/dL unknown) (unknown) (no (unknown) (unknown) Calcium 9.4 (units (un known) date) (8.4-10.2) mg/dL unknown) (unknown) (no (unknown) (unknown) Carbon Dioxide (units (unknown) date) (22-32) mmol/L unknown) (unknown) (no (unknown) (unknown) Carbon Dioxide 24 (units (unknown) date) (22-32) mmol/L unknown) (unknown) (no (unknown) (unknown) Cardio (units (unkno wn) date) unknown) (unknown) (no (unknown) (unknown) Cardiovascular (units (unknown) date) unknown) (unknown) (no (unknown) (unknown) Cardiovascular: (units (unknown) date) Denies chest pain, unknown) Denies irregular heart rhythm, Denies (unknown) (no (unknown) (unknown) Chief Complaint: (units (unknown) date) Back Pain/Injury unknown) (unknown) (no (unknown) (unknown) Chloride (98-107) (units (unknown) date) mmol/L unknown) (unknown) (no (unknown) (unknown) Chloride 104 (units (u nknown) date) (98-107) mmol/L unknown) (unknown) (no (unknown) (unknown) Clinical (units (unkno wn) date) Impression: unknown) (unknown) (no (unknown) (unknown) Comment: Findings (units (unknown) date) were discussed with unknown) Darci Baltazar PA-C at time of dictation. (unknown) (no (unknown) (unknown) Comments: (units (unkn own) date) unknown) (unknown) (no (unknown) (unknown) Const (units (unkno wn) date) unknown) (unknown) (no (unknown) (unknown) Constitutional (units (unknown) date) unknown) (unknown) (no (unknown) (unknown) Constitutional: (units (unknown) date) Denies chills, unknown) Denies fatigue, Denies fever(s), Denies frequent (unknown) (no (unknown) (unknown) Cosign (units (unkno wn) date) unknown) (unknown) (no (unknown) (unknown) Course (units (unkno wn) date) unknown) (unknown) (no (unknown) (unknown) Creatinine (units (unk nown) date) (0.66-1.25) mg/dL unknown) (unknown) (no (unknown) (unknown) Creatinine 0.95 (units (unknown) date) (0.66-1.25) mg/dL unknown) (unknown) (no (unknown) (unknown) : 1975 (units (unknown) date) Acct:[id number] unknown) (unknown) (no (unknown) (unknown) Date of Service: (units (unknown) date) 08/06/22 unknown) (unknown) (no (unknown) (unknown) Denies frequent (units (unknown) date) falls, Denies loss unknown) of vision, Denies numbness, Denies tingling (unknown) (no (unknown) (unknown) Denies loss of (units (unknown) date) vision unknown) (unknown) (no (unknown) (unknown) Denies numbness (units (unknown) date) and Denies tingling unknown) (unknown) (no (unknown) (unknown) Departure (units (unkn own) date) unknown) (unknown) (no (unknown) (unknown) Dictated by: Zaid (units (unknown) date) Marcial Medel on unknown) 08/06/2022 at 20:16 ? ? (unknown) (no (unknown) (unknown) Discharge Plan (units (unknown) date) unknown) (unknown) (no (unknown) (unknown) Discontinued (units (u nknown) date) Medications unknown) (unknown) (no (unknown) (unknown) Documented By: SHERRON (units (unknown) date) unknown) (unknown) (no (unknown) (unknown) Documented By: NATTY (units (unknown) date) unknown) (unknown) (no (unknown) (unknown) Dr Hebert Co-Sign (units (unknown) date) Statement: I was unknown) available for consultation during this (unknown) (no (unknown) (unknown) ED Attending (units (u nknown) date) Cosignature unknown) Attestation: (unknown) (no (unknown) (unknown) ED Orders (units (unkn own) date) unknown) (unknown) (no (unknown) (unknown) ENT (units (unkno wn) date) unknown) (unknown) (no (unknown) (unknown) ER Physician: (units ( unknown) date) Giovanny,Hyma P.A-C unknown) (unknown) (no (unknown) (unknown) Ears, Nose, Mouth, (units (unknown) date) and Throat: Denies unknown) change in voice, Denies dizziness, Denies (unknown) (no (unknown) (unknown) Ears:?hearing (units ( unknown) date) grossly normal unknown) bilaterally (unknown) (no (unknown) (unknown) Effort + (units (unkno wn) date) Inspection:?normal unknown) respiratory effort (unknown) (no (unknown) (unknown) Emergency Report (units (unknown) date) unknown) (unknown) (no (unknown) (unknown) Endocrine (units (unkn own) date) unknown) (unknown) (no (unknown) (unknown) Endocrine: Denies (units (unknown) date) fatigue, Denies unknown) flushing and Denies palpitations (unknown) (no (unknown) (unknown) Eos # (Auto) (units (u nknown) date) (0-450) /uL unknown) (unknown) (no (unknown) (unknown) Eos # (Auto) 200 (units (unknown) date) (0-450) /uL unknown) (unknown) (no (unknown) (unknown) Eos % (Auto) (2-4) (units (unknown) date) % unknown) (unknown) (no (unknown) (unknown) Eos % (Auto) 2.4 (units (unknown) date) (2-4) % unknown) (unknown) (no (unknown) (unknown) Esterase (units (unkno wn) date) unknown) (unknown) (no (unknown) (unknown) Estimated GFR > 60 (units (unknown) date) (>60) mL/min unknown) (unknown) (no (unknown) (unknown) Estimated GFR (units ( unknown) date) (>60) mL/min unknown) (unknown) (no (unknown) (unknown) Exam Narrative: (units (unknown) date) unknown) (unknown) (no (unknown) (unknown) Exam (units (unkno wn) date) unknown) (unknown) (no (unknown) (unknown) Eyes (units (unkno wn) date) unknown) (unknown) (no (unknown) (unknown) Eyes: Denies (units (u nknown) date) change in vision, unknown) Denies eye discharge, Denies irritation and (unknown) (no (unknown) (unknown) FINDINGS:? (units (unk nown) date) unknown) (unknown) (no (unknown) (unknown) Face and (units (unkno wn) date) sinus:?normal unknown) facial exam and sinuses nontender (unknown) (no (unknown) (unknown) Family History (units (unknown) date) (Reviewed 08/06/22 unknown) @ 20:12 by Darci Baltazar PA-C) (unknown) (no (unknown) (unknown) Father CVA (units (unk nown) date) (cerebral vascular unknown) accident) (unknown) (no (unknown) (unknown) Functional (units (unk nown) date) paraparesis unknown) (unknown) (no (unknown) (unknown) GI (units (unkno wn) date) unknown) (unknown) (no (unknown) (unknown) Gallbladder:? (units ( unknown) date) Within normal unknown) limits. (unknown) (no (unknown) (unknown) Gastrointestinal (units (unknown) date) unknown) (unknown) (no (unknown) (unknown) Gastrointestinal: (units (unknown) date) Reports abdominal unknown) pain, Denies change in bowel habits, Denies (unknown) (no (unknown) (unknown) General (units (unkno wn) date) unknown) (unknown) (no (unknown) (unknown) General:?appearanc (units (unknown) date) e normal, both eyes unknown) and all related structures (unknown) (no (unknown) (unknown) General:?cooperati (units (unknown) date) ve, healthy unknown) appearing and comfortable (unknown) (no (unknown) (unknown) General:?patient (units (unknown) date) alert, patient unknown) awake and patient oriented x3 (unknown) (no (unknown) (unknown) Genitourinary (units ( unknown) date) unknown) (unknown) (no (unknown) (unknown) Genitourinary: (units (unknown) date) Denies hematuria, unknown) Denies flank pain, Denies urinary incontinence (unknown) (no (unknown) (unknown) Globulin (1.7-4.1) (units (unknown) date) g/dL unknown) (unknown) (no (unknown) (unknown) Globulin 3.6 (units (u nknown) date) (1.7-4.1) g/dL unknown) (unknown) (no (unknown) (unknown) Glucose (70-100) (units (unknown) date) mg/dL unknown) (unknown) (no (unknown) (unknown) Glucose 101 H (units ( unknown) date) (70-100) mg/dL unknown) (unknown) (no (unknown) (unknown) HENMT (units (unkno wn) date) unknown) (unknown) (no (unknown) (unknown) HPI - Back (units (unk nown) date) Pain/Injury unknown) (unknown) (no (unknown) (unknown) HPI Narrative: (units (unknown) date) unknown) (unknown) (no (unknown) (unknown) Hct (41-53) % (units ( unknown) date) unknown) (unknown) (no (unknown) (unknown) Hct 40.4 L (41-53) (units (unknown) date) % unknown) (unknown) (no (unknown) (unknown) Head:?normal to (units (unknown) date) inspection unknown) (unknown) (no (unknown) (unknown) Heart:? No (units (unk nown) date) significant unknown) findings. (unknown) (no (unknown) (unknown) Hematologic/Lympha (units (unknown) date) tic unknown) (unknown) (no (unknown) (unknown) Hematologic/Lympha (units (unknown) date) tic: Denies easy unknown) bruising (unknown) (no (unknown) (unknown) Hgb (13.5-17.5) (units (unknown) date) g/dL unknown) (unknown) (no (unknown) (unknown) Hgb 13.4 L (units (unk nown) date) (13.5-17.5) g/dL unknown) (unknown) (no (unknown) (unknown) History of Present (units (unknown) date) Illness unknown) (unknown) (no (unknown) (unknown) History of spinal (units (unknown) date) surgery unknown) (unknown) (no (unknown) (unknown) History of (units (unk nown) date) tonsillectomy unknown) (unknown) (no (unknown) (unknown) Home Medications (units (unknown) date) unknown) (unknown) (no (unknown) (unknown) Hospital, (units (unkn own) date) unknown) (unknown) (no (unknown) (unknown) Hypertension (units (u nknown) date) unknown) (unknown) (no (unknown) (unknown) IMPRESSION:? (units (u nknown) date) unknown) (unknown) (no (unknown) (unknown) INDICATIONS:? (units ( unknown) date) Flank pain; LLQ pin unknown) (unknown) (no (unknown) (unknown) Image quality:? (units (unknown) date) Excellent.? unknown) (unknown) (no (unknown) (unknown) Imaging Data (units (u nknown) date) unknown) (unknown) (no (unknown) (unknown) Initial Vital (units ( unknown) date) Signs unknown) (unknown) (no (unknown) (unknown) Initial Vital (units ( unknown) date) Signs: unknown) (unknown) (no (unknown) (unknown) Instructions: DI (units (unknown) date) for Kidney unknown) Infection, DI for Constipation (unknown) (no (unknown) (unknown) Integumentary/[place] (units (unknown) date) sts unknown) (unknown) (no (unknown) (unknown) [facility] (units (unknown) date) [address] unknown) [place] [address] (unknown) (no (unknown) (unknown) Ketorolac (units (unkn own) date) Tromethamine unknown) (Ketorolac 30 Mg/Ml Vial) 15 mg IV NOW ONE (unknown) (no (unknown) (unknown) Kidneys and (units (un known) date) Ureters:? Mild unknown) right hydronephrosis, decreased.? Small (unknown) (no (unknown) (unknown) Lab Data (units (unkno wn) date) unknown) (unknown) (no (unknown) (unknown) Lab Results (units (un known) date) unknown) (unknown) (no (unknown) (unknown) Label Comments: (units (unknown) date) unknown) (unknown) (no (unknown) (unknown) Labs within normal (units (unknown) date) limits. UA positive unknown) for UTI. CT shows evidence of (unknown) (no (unknown) (unknown) Labs: (units (unkno wn) date) unknown) (unknown) (no (unknown) (unknown) Lactate (0.7-2.1) (units (unknown) date) mmol/L unknown) (unknown) (no (unknown) (unknown) Lactate (Lactic (units (unknown) date) Acid) Stat unknown) (unknown) (no (unknown) (unknown) Lactate 1.8 (units (un known) date) (0.7-2.1) mmol/L unknown) (unknown) (no (unknown) (unknown) Last Admin: (units (un known) date) 08/06/22 19:26 unknown) Dose: 15 mg (unknown) (no (unknown) (unknown) Last Admin: (units (un known) date) 08/06/22 21:06 unknown) Dose: 1 tab (unknown) (no (unknown) (unknown) Lipase (23-300) (units (unknown) date) U/L unknown) (unknown) (no (unknown) (unknown) Lipase 73 (23-300) (units (unknown) date) U/L unknown) (unknown) (no (unknown) (unknown) Lipase Stat (units (un known) date) unknown) (unknown) (no (unknown) (unknown) Liver:? Left lobe (units (unknown) date) calcification or unknown) metallic foreign body, unchanged.? No (unknown) (no (unknown) (unknown) Lung bases:? (units (u nknown) date) Unremarkable.? ? unknown) (unknown) (no (unknown) (unknown) Lymph # (Auto) (units (unknown) date) (2167-7039) /uL unknown) (unknown) (no (unknown) (unknown) Lymph # (Auto) (units (unknown) date) 1200 (4231-8999) unknown) /uL (unknown) (no (unknown) (unknown) Lymph % (Auto) (units (unknown) date) (25-40) % unknown) (unknown) (no (unknown) (unknown) Lymph % (Auto) (units (unknown) date) 13.1 L (25-40) % unknown) (unknown) (no (unknown) (unknown) MCH (26-34) PG (units (unknown) date) unknown) (unknown) (no (unknown) (unknown) MCH 27.0 (26-34) (units (unknown) date) PG unknown) (unknown) (no (unknown) (unknown) MCHC (30-36) % (units (unknown) date) unknown) (unknown) (no (unknown) (unknown) MCHC 33.1 (30-36) (units (unknown) date) % unknown) (unknown) (no (unknown) (unknown) MCV (80-100) fL (units (unknown) date) unknown) (unknown) (no (unknown) (unknown) MCV 81.4 (80-100) (units (unknown) date) fL unknown) (unknown) (no (unknown) (unknown) MDM - Back (units (unk nown) date) Pain/Injury unknown) (unknown) (no (unknown) (unknown) MDM Narrative (units ( unknown) date) unknown) (unknown) (no (unknown) (unknown) Medical History (units (unknown) date) (Reviewed 08/06/22 unknown) @ 20:11 by Darci Baltazar PA-C) (unknown) (no (unknown) (unknown) Medical decision (units (unknown) date) making narrative: unknown) (unknown) (no (unknown) (unknown) Medication (units (unk nown) date) Instructions unknown) Recorded Confirmed (unknown) (no (unknown) (unknown) Medication (units (unk nown) date) Instructions unknown) Recorded (unknown) (no (unknown) (unknown) Miscellaneous: No (units (unknown) date) inguinal hernias unknown) are seen.? Fecal matter at the gluteal cleft (unknown) (no (unknown) (unknown) [place] # (Auto) (units ( unknown) date) (0-900) /uL unknown) (unknown) (no (unknown) (unknown) [place] # (Auto) 400 (units (unknown) date) (0-900) /uL unknown) (unknown) (no (unknown) (unknown) [place] % (Auto) (units ( unknown) date) (3-14) % unknown) (unknown) (no (unknown) (unknown) [place] % (Auto) 4.7 (units (unknown) date) (3-14) % unknown) (unknown) (no (unknown) (unknown) Mother Myocardial (units (unknown) date) infarct unknown) (unknown) (no (unknown) (unknown) Mouth:?oral (units (un known) date) mucosae normal unknown) (unknown) (no (unknown) (unknown) Musculoskeletal (units (unknown) date) unknown) (unknown) (no (unknown) (unknown) Musculoskeletal: (units (unknown) date) Denies back pain, unknown) Denies muscle weakness, Denies neck pain, (unknown) (no (unknown) (unknown) Narrative (units (unkn own) date) unknown) (unknown) (no (unknown) (unknown) Neck (units (unkno wn) date) unknown) (unknown) (no (unknown) (unknown) Neck:?normal (units (u nknown) date) visual inspection unknown) and no lymphadenopathy noted (unknown) (no (unknown) (unknown) Neuro (units (unkno wn) date) unknown) (unknown) (no (unknown) (unknown) Neurogenic pain (units (unknown) date) unknown) (unknown) (no (unknown) (unknown) Neurologic (units (unk nown) date) unknown) (unknown) (no (unknown) (unknown) Neurologic: Denies (units (unknown) date) behavioral changes, unknown) Denies confusion, Denies dizziness, (unknown) (no (unknown) (unknown) Neut # (Auto) (units ( unknown) date) (8579-1602) /uL unknown) (unknown) (no (unknown) (unknown) Neut # (Auto) 7400 (units (unknown) date) H (4960-8389) /uL unknown) (unknown) (no (unknown) (unknown) Neut % (Auto) (units ( unknown) date) (50-75) % unknown) (unknown) (no (unknown) (unknown) Neut % (Auto) 79.3 (units (unknown) date) H (50-75) % unknown) (unknown) (no (unknown) (unknown) New (units (unkno wn) date) unknown) (unknown) (no (unknown) (unknown) No Action (units (unkn own) date) unknown) (unknown) (no (unknown) (unknown) Normal (units (unkno wn) date) unknown) (unknown) (no (unknown) (unknown) Nose:?external (units (unknown) date) nose normal unknown) (unknown) (no (unknown) (unknown) Ordered: (units (unkno wn) date) unknown) (unknown) (no (unknown) (unknown) Orders (units (unkno wn) date) unknown) (unknown) (no (unknown) (unknown) Oxycodone/Acetamin (units (unknown) date) ophen unknown) (Oxycodone/Acetamin ophen 5/325 Tablet) 1 tab PO NOW ONE (unknown) (no (unknown) (unknown) Oxygen Delivery (units (unknown) date) Method 08/06/22 unknown) 17:46 (unknown) (no (unknown) (unknown) Oxygen Delivery (units (unknown) date) Method Room Air unknown) Room Air (unknown) (no (unknown) (unknown) PELVIS: (units (unkno wn) date) unknown) (unknown) (no (unknown) (unknown) PROCEDURE:? CT (units (unknown) date) ABDOMEN PELVIS W unknown) CON (unknown) (no (unknown) (unknown) Pancreas:? No (units (u nknown) date) peripancreatic unknown) fluid collection.? The pancreatic head is prominent (unknown) (no (unknown) (unknown) Patient (units (unkno wn) date) Disposition: Home unknown) (unknown) (no (unknown) (unknown) Patient History (units (unknown) date) unknown) (unknown) (no (unknown) (unknown) Patient: Eleazar (units ( unknown) date) Yann Jones MR#: [id number] unknown) (unknown) (no (unknown) (unknown) Pelvic Nodes: No (units (unknown) date) enlarged lymph unknown) nodes.? (unknown) (no (unknown) (unknown) Pelvic Organs:? No (units (unknown) date) free fluid. unknown) (unknown) (no (unknown) (unknown) Peritoneum:? No (units (unknown) date) abnormal unknown) intraperitoneal fluid.? No free air.? (unknown) (no (unknown) (unknown) Plt Count (units (unkn own) date) (150-400) X103/uL unknown) (unknown) (no (unknown) (unknown) Plt Count 377 (units ( unknown) date) (150-400) X103/uL unknown) (unknown) (no (unknown) (unknown) Positive CVA (units (u nknown) date) tenderness. unknown) (unknown) (no (unknown) (unknown) Potassium (units (unkn own) date) (3.4-5.1) mmol/L unknown) (unknown) (no (unknown) (unknown) Potassium 4.2 (units ( unknown) date) (3.4-5.1) mmol/L unknown) (unknown) (no (unknown) (unknown) Prescriptions: (units (unknown) date) unknown) (unknown) (no (unknown) (unknown) Previous Rx's (units ( unknown) date) unknown) (unknown) (no (unknown) (unknown) Psychiatric (units (un known) date) unknown) (unknown) (no (unknown) (unknown) Psychiatric: Denies (units (unknown) date) anxiety, Denies unknown) behavioral changes, Denies confusion, Denies (unknown) (no (unknown) (unknown) Pulse Oximetry 96 (units (unknown) date) 08/06/22 17:46 unknown) (unknown) (no (unknown) (unknown) Pulse Oximetry 96 (units (unknown) date) 96 unknown) (unknown) (no (unknown) (unknown) Pulse Rate 96 H (units (unknown) date) 08/06/22 17:46 unknown) (unknown) (no (unknown) (unknown) Pulse Rate 96 H 93 (units (unknown) date) H unknown) (unknown) (no (unknown) (unknown) Pyelonephritis, (units (unknown) date) Constipation unknown) (unknown) (no (unknown) (unknown) RBC (4.5-5.9) (units ( unknown) date) X106/uL unknown) (unknown) (no (unknown) (unknown) RBC 4.96 (4.5-5.9) (units (unknown) date) X106/uL unknown) (unknown) (no (unknown) (unknown) RDW (11.6-14.8) % (units (unknown) date) unknown) (unknown) (no (unknown) (unknown) RDW 17.4 H (units (unk nown) date) (11.6-14.8) % unknown) (unknown) (no (unknown) (unknown) ROS Unobtainable: (units (unknown) date) All systems unknown) reviewed + are unremarkable except as noted in HPI (unknown) (no (unknown) (unknown) Radiologist's (units ( unknown) date) Impression: unknown) (unknown) (no (unknown) (unknown) Rate:?regular rate (units (unknown) date) unknown) (unknown) (no (unknown) (unknown) Referrals: (units (unk nown) date) unknown) (unknown) (no (unknown) (unknown) Related Data (units (u nknown) date) unknown) (unknown) (no (unknown) (unknown) Renal (units (unkno wn) date) unknown) (unknown) (no (unknown) (unknown) Resp (units (unkno wn) date) unknown) (unknown) (no (unknown) (unknown) Respiratory Rate (units (unknown) date) 16 08/06/22 17:46 unknown) (unknown) (no (unknown) (unknown) Respiratory Rate (units (unknown) date) 16 unknown) (unknown) (no (unknown) (unknown) Respiratory (units (un known) date) unknown) (unknown) (no (unknown) (unknown) Respiratory: Denies (units (unknown) date) cough, Denies unknown) dyspnea, Denies dyspnea on exertion and Denies (unknown) (no (unknown) (unknown) Result diagrams: (units (unknown) date) unknown) (unknown) (no (unknown) (unknown) Review of Systems (units (unknown) date) unknown) (unknown) (no (unknown) (unknown) Rhythm:?regular (units (unknown) date) rhythm unknown) (unknown) (no (unknown) (unknown) Rx Instructions: (units (unknown) date) unknown) (unknown) (no (unknown) (unknown) 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 unknown) (unknown) (no (unknown) (unknown) Signed By: (units (unk nown) date) unknown) (unknown) (no (unknown) (unknown) [place] (units (unkno wn) date) unknown) (unknown) (no (unknown) (unknown) Skin/Breast: (units (u nknown) date) Denies pruritus, unknown) Denies erythema, Denies rash and Denies wounds (unknown) (no (unknown) (unknown) Smoking Status: (units (unknown) date) Former smoker unknown) (unknown) (no (unknown) (unknown) Social History (units (unknown) date) (Reviewed 08/06/22 unknown) @ 20:12 by Darci Baltazar PA-C) (unknown) (no (unknown) (unknown) Sodium (137-145) (units (unknown) date) mmol/L unknown) (unknown) (no (unknown) (unknown) Sodium 138 (units (unk nown) date) (137-145) mmol/L unknown) (unknown) (no (unknown) (unknown) Source: patient (units (unknown) date) and EMS unknown) (unknown) (no (unknown) (unknown) Spleen:? No (units (un known) date) splenomegaly. unknown) (unknown) (no (unknown) (unknown) Stated Complaint: (units (unknown) date) back pain, previous unknown) kidney surgery (unknown) (no (unknown) (unknown) Stomach and (units (un known) date) Bowel:? Prominent unknown) stool in the rectum.? A few colonic diverticuli.? (unknown) (no (unknown) (unknown) Stop: 08/06/22 (units (unknown) date) 18:56 unknown) (unknown) (no (unknown) (unknown) Stop: 08/06/22 (units (unknown) date) 20:58 unknown) (unknown) (no (unknown) (unknown) Substance Use (units ( unknown) date) Type: does not use unknown) (unknown) (no (unknown) (unknown) Surgical History (units (unknown) date) (Reviewed 08/06/22 unknown) @ 20:12 by Darci Baltazar PA-C) (unknown) (no (unknown) (unknown) TECHNIQUE:? (units (un known) date) unknown) (unknown) (no (unknown) (unknown) Take 1 capsule by (units (unknown) date) mouth twice a day unknown) for chronic back pain (unknown) (no (unknown) (unknown) Take 1 tablet by (units (unknown) date) mouth twice a day unknown) (unknown) (no (unknown) (unknown) Temperature 97.8 F (units (unknown) date) 08/06/22 17:46 unknown) (unknown) (no (unknown) (unknown) Temperature 97.8 F (units (unknown) date) unknown) (unknown) (no (unknown) (unknown) Throat:?posterior (units (unknown) date) oropharynx normal unknown) (unknown) (no (unknown) (unknown) Time Seen by (units (u nknown) date) Provider: 08/06/22 unknown) 17:57 (unknown) (no (unknown) (unknown) Total Bilirubin (units (unknown) date) (0.2-1.3) mg/dL unknown) (unknown) (no (unknown) (unknown) Total Bilirubin (units (unknown) date) 0.5 (0.2-1.3) mg/dL unknown) (unknown) (no (unknown) (unknown) Total Protein (units ( unknown) date) (6.3-8.2) g/dL unknown) (unknown) (no (unknown) (unknown) Total Protein 7.8 (units (unknown) date) (6.3-8.2) g/dL unknown) (unknown) (no (unknown) (unknown) Urine Dip (units (unkn own) date) unknown) (unknown) (no (unknown) (unknown) Urine Specific (units (unknown) date) [place] 1.025 unknown) (unknown) (no (unknown) (unknown) [facility], (units (unknown) date) CT, CT ABDOMEN unknown) PELVIS WITH CONTRAST, 01/11/2021, 13:06.? Island (unknown) (no (unknown) (unknown) Ventral Wall: ? No (units (unknown) date) hernia.? unknown) (unknown) (no (unknown) (unknown) Vessels:? Aorta (units (unknown) date) and inferior vena unknown) cava are normal in size.? (unknown) (no (unknown) (unknown) Vital Signs - 8 hr (units (unknown) date) unknown) (unknown) (no (unknown) (unknown) Vital Signs (units (un known) date) unknown) (unknown) (no (unknown) (unknown) Vital signs: (units (u nknown) date) unknown) (unknown) (no (unknown) (unknown) WBC (4.5-11.0) (units (unknown) date) X103/uL unknown) (unknown) (no (unknown) (unknown) WBC 9.3 (4.5-11.0) (units (unknown) date) X103/uL unknown) (unknown) (no (unknown) (unknown) You were evaluated (units (unknown) date) in the ED today for unknown) flank pain. Your labs were normal. Your (unknown) (no (unknown) (unknown) Danika García, (units (unknown) date) PA-C [Primary Care unknown) Provider] (unknown) (no (unknown) (unknown) [Embedded Image (units (unknown) date) Not Available] unknown) (unknown) (no (unknown) (unknown) adjustment (units (unk nown) date) unknown) (unknown) (no (unknown) (unknown) administrative (units (unknown) date) purposes only. I unknown) did not have direct contact with this patient (unknown) (no (unknown) (unknown) alcohol intake (units (unknown) date) frequency: unknown) holidays/special occasions only (unknown) (no (unknown) (unknown) alcohol intake: (units (unknown) date) current unknown) (unknown) (no (unknown) (unknown) and Denies (units (unk nown) date) orthopnea unknown) (unknown) (no (unknown) (unknown) and Denies urinary (units (unknown) date) urgency unknown) (unknown) (no (unknown) (unknown) and Denies (units (unk nown) date) weakness unknown) (unknown) (no (unknown) (unknown) and below (units (unkn own) date) unknown) (unknown) (no (unknown) (unknown) antibiotic, (units (un known) date) however his back unknown) pain has worsened. Patient also endorses left (unknown) (no (unknown) (unknown) appendix.? No (units ( unknown) date) small bowel unknown) obstruction.? Stomach is not distended. (unknown) (no (unknown) (unknown) bowel movement (units (unknown) date) after some unknown) disimpacting help from the nursing staff. Impacted (unknown) (no (unknown) (unknown) breath, nausea, (units (unknown) date) vomiting, dysuria, unknown) lightheadedness, dizziness, syncope. (unknown) (no (unknown) (unknown) decubitus ulcer. (units (unknown) date) unknown) (unknown) (no (unknown) (unknown) depression, Denies (units (unknown) date) homicidal ideation unknown) and Denies suicidal ideation (unknown) (no (unknown) (unknown) diarrhea, Denies (units (unknown) date) nausea and Denies unknown) vomiting (unknown) (no (unknown) (unknown) doxycycline (units (un known) date) hyclate 100 mg unknown) tablet 100 mg PO BID 10 days #20 tabs 08/06/22 (unknown) (no (unknown) (unknown) doxycycline (units (un known) date) hyclate 100 mg unknown) tablet (unknown) (no (unknown) (unknown) during this visit. (units (unknown) date) They were seen unknown) independently by the APC. (unknown) (no (unknown) (unknown) edema given the (units (unknown) date) change in the unknown) short-term interval. (unknown) (no (unknown) (unknown) enhancement (units (un known) date) appears somewhat unknown) heterogeneous on the left.? Bilateral double-J (unknown) (no (unknown) (unknown) falls, Denies (units ( unknown) date) lethargy and Denies unknown) weakness (unknown) (no (unknown) (unknown) from the (units (unkno wn) date) unknown) (unknown) (no (unknown) (unknown) gabapentin AdvReac (units (unknown) date) Shakiness Verified unknown) 08/06/22 17:46 (unknown) (no (unknown) (unknown) household members: (units (unknown) date) spouse, children, unknown) friend(s) and other (unknown) (no (unknown) (unknown) improving (units (unkn own) date) unknown) (unknown) (no (unknown) (unknown) in size. (units (unkno wn) date) unknown) (unknown) (no (unknown) (unknown) in the rectum. (units (unknown) date) Patient has urology unknown) follow-up in August. ED return precautions (unknown) (no (unknown) (unknown) infection. Your (units (unknown) date) antibiotic is being unknown) switched out to doxycycline. Please stop (unknown) (no (unknown) (unknown) ketorolac 10 mg (units (unknown) date) tablet 10 mg PO Q8H unknown) PRN pain #14 tabs 07/30/22 (unknown) (no (unknown) (unknown) ketorolac 10 mg (units (unknown) date) tablet unknown) (unknown) (no (unknown) (unknown) kidney stones.? (units (unknown) date) There is thinning unknown) of the renal cortex compared to the prior CT.? (unknown) (no (unknown) (unknown) leave on most (units ( unknown) date) painful area for 12 unknown) hrs (unknown) (no (unknown) (unknown) lesion.? ? (units (unk nown) date) unknown) (unknown) (no (unknown) (unknown) lidocaine 5 % (units ( unknown) date) topical patch 1 unknown) patch topical DAILY #15 ea 07/11/22 (unknown) (no (unknown) (unknown) lidocaine (units (unkn own) date) [Lidoderm] 5 % unknown) adhesive patch,medicated (unknown) (no (unknown) (unknown) lightheadedness, (units (unknown) date) Denies unknown) palpitations, Denies dyspnea, Denies dyspnea on exertion (unknown) (no (unknown) (unknown) lipase, type and (units (unknown) date) screen, UA, CT unknown) abdomen pelvis. Will give Toradol for pain. (unknown) (no (unknown) (unknown) lung bases to the (units (unknown) date) pubic symphysis.? unknown) Coronal and sagittal reformats were (unknown) (no (unknown) (unknown) may take 300 mg of (units (unknown) date) magnesium citrate unknown) for 2 days, followed by MiraLax nightly for (unknown) (no (unknown) (unknown) metoprolol (units (unk nown) date) tartrate 50 mg unknown) tablet 50 mg PO BID 10/15/21 10/15/21 (unknown) (no (unknown) (unknown) metoprolol (units (unk nown) date) tartrate 50 mg unknown) tablet (unknown) (no (unknown) (unknown) mg tablet (units (unkn own) date) (Percocet) unknown) (unknown) (no (unknown) (unknown) mg-trimethoprim (units (unknown) date) 160 mg tablet unknown) (unknown) (no (unknown) (unknown) morphine Allergy (units (unknown) date) Nightmare Verified unknown) 08/06/22 17:46 (unknown) (no (unknown) (unknown) neck pain, Denies (units (unknown) date) sore throat and unknown) Denies throat swelling (unknown) (no (unknown) (unknown) nonobstructing (units (unknown) date) right unknown) (unknown) (no (unknown) (unknown) of mA and/or kV (units (unknown) date) according to unknown) patient size. (unknown) (no (unknown) (unknown) of the spinal (units ( unknown) date) caught, paralysis unknown) of both lower limbs, indwelling Bowling catheter (unknown) (no (unknown) (unknown) oxycodone-acetamin (units (unknown) date) ophen 5 mg-325 1 unknown) tab PO Q8H PRN pain #14 tabs 07/30/22 (unknown) (no (unknown) (unknown) oxycodone-acetamin (units (unknown) date) ophen [Percocet] unknown) 5-325 mg tablet (unknown) (no (unknown) (unknown) patient's (units (unkn own) date) emergency unknown) department visit. This chart is signed by myself for (unknown) (no (unknown) (unknown) performed.? For (units (unknown) date) unknown) (unknown) (no (unknown) (unknown) persistently (units (u nknown) date) vomiting you have unknown) fever, chills, worsening abdominal or back pain. (unknown) (no (unknown) (unknown) phenazopyridine (units (unknown) date) 100 mg tablet 100 unknown) mg PO Q8H PRN bladder pain #10 07/30/22 (unknown) (no (unknown) (unknown) phenazopyridine (units (unknown) date) [Pyridium] 100 mg unknown) tablet (unknown) (no (unknown) (unknown) possibly atrophic (units (unknown) date) kidneys. Patient's unknown) antibiotic switched out to doxycycline. (unknown) (no (unknown) (unknown) pregabalin 300 mg (units (unknown) date) capsule (Lyrica) unknown) 300 mg PO BID 10/15/21 10/15/21 (unknown) (no (unknown) (unknown) pregabalin (units (unk nown) date) [Lyrica] 300 mg unknown) capsule (unknown) (no (unknown) (unknown) presents to the ED (units (unknown) date) with bilateral unknown) flank pain. Concern for UTI versus (unknown) (no (unknown) (unknown) presents to the ED (units (unknown) date) with bilateral unknown) flank pain. Patient was seen in the ED on (unknown) (no (unknown) (unknown) pyelonephritis and (units (unknown) date) some other findings unknown) such as a prominent pancreatic head, (unknown) (no (unknown) (unknown) pyelonephritis (units (unknown) date) versus unknown) nephrolithiasis versus diverticulitis versus constipation (unknown) (no (unknown) (unknown) radiation dose (units (unknown) date) reduction, the unknown) following was used:? automated exposure control, (unknown) (no (unknown) (unknown) seen in (units (unkno wn) date) unknown) (unknown) (no (unknown) (unknown) sided abdominal (units (unknown) date) pain. Patient unknown) denies fever, chills, chest pain, shortness of (unknown) (no (unknown) (unknown) similar.? (units (unkn own) date) unknown) (unknown) (no (unknown) (unknown) stents.? Ureters (units (unknown) date) are prominent with unknown) trace periureteral stranding. (unknown) (no (unknown) (unknown) stool consistent (units (unknown) date) with possible stool unknown) in the CT read. No decubitus ulcer found (unknown) (no (unknown) (unknown) sulfamethoxazole (units (unknown) date) 800 1 tab PO Q12H unknown) 10 days #20 tabs 07/30/22 (unknown) (no (unknown) (unknown) sulfamethoxazole-t (units (unknown) date) rimethoprim unknown) [Bactrim DS] 800-160 mg tablet (unknown) (no (unknown) (unknown) suspicious (units (unk nown) date) unknown) (unknown) (no (unknown) (unknown) the Bactrim and (units (unknown) date) start the unknown) doxycycline. Your CT also shows constipation. You (unknown) (no (unknown) (unknown) the next 2 months. (units (unknown) date) Please return to unknown) the ED if your symptoms worsen, you are (unknown) (no (unknown) (unknown) the setting of (units (unknown) date) pyelonephritis.? unknown) Recommend correlation with urinalysis. (unknown) (no (unknown) (unknown) thickened.? (units (un known) date) unknown) (unknown) (no (unknown) (unknown) unchanged. (units (unk nown) date) unknown) (unknown) (no (unknown) (unknown) ureteral (units (unkno wn) date) unknown) (unknown) (no (unknown) (unknown) urine was positive (units (unknown) date) for a kidney unknown) infection. Your CT scan also shows a kidney (unknown) (no (unknown) (unknown) versus other (units (u nknown) date) intra-abdominal unknown) pathology versus other. Will obtain labs, lactate, (unknown) (no (unknown) (unknown) versus (units (unkno wn) date) unknown) (unknown) (no (unknown) (unknown) vessels appear (units (unknown) date) unknown) (unknown) (no (unknown) (unknown) were discussed (units (unknown) date) with patient. unknown) Patient verbalized understanding. (unknown) (no (unknown) (unknown) wheezing (units (unkno wn) date) unknown) (unknown) (no (unknown) (unknown) zinc oxide 15 % (units (unknown) date) cream unknown) (unknown) (no (unknown) (unknown) zinc oxide 15 % (units (unknown) date) topical cream 1 unknown) applic topical BID #99 grams 07/30/22 Social History date description facility 2022-07-11 00:00 Current some day smoker [facility] 2022-07-13 00:00 Current some day smoker [facility] 2022-07-23 00:00 Ex-smoker (finding) [facility] 2022-07-30 00:00 Ex-smoker (finding) [facility] 2022-08-06 00:00 Ex-smoker (finding) [facility] Vital Signs date measurement value units 2022-07-11 00:00 BMI 23.4 kg/m2 2022-07-11 00:00 BP_diastolic 83 mmHg 2022-07-11 00:00 BP_systolic 120 mmHg 2022-07-11 00:00 heart_rate 85 /min 2022-07-11 00:00 height_metric 182.88 cm 2022-07-11 00:00 height_standard 72 in 2022-07-11 00:00 o2_saturation 96 % 2022-07-11 00:00 respiration_rate 16 /min 2022-07-11 00:00 temperature_metric 36.28 C 2022-07-11 00:00 temperature_standard 97.3 F 2022-07-11 00:00 weight_metric 78.47 kg 2022-07-11 00:00 weight_standard 173 lb 2022-07-13 00:00 BMI 23.7 kg/m2 2022-07-13 00:00 BP_diastolic 96 mmHg 2022-07-13 00:00 BP_systolic 144 mmHg 2022-07-13 00:00 heart_rate 81 /min 2022-07-13 00:00 height_metric 182.88 cm 2022-07-13 00:00 height_standard 72 in 2022-07-13 00:00 o2_saturation 97 % 2022-07-13 00:00 respiration_rate 20 /min 2022-07-13 00:00 temperature_metric 36.5 C 2022-07-13 00:00 temperature_standard 97.7 F 2022-07-13 00:00 weight_metric 79.37 kg 2022-07-13 00:00 weight_standard 174.98 lb 2022-07-24 00:00 BP_diastolic 84 mmHg 2022-07-24 00:00 BP_systolic 131 mmHg 2022-07-24 00:00 heart_rate 84 /min 2022-07-24 00:00 o2_saturation 98 % 2022-07-24 00:00 respiration_rate 20 /min 2022-07-24 00:00 temperature_metric 36.67 C 2022-07-24 00:00 temperature_standard 98 F 2022-07-30 00:00 BP_diastolic 101 mmHg 2022-07-30 00:00 BP_systolic 145 mmHg 2022-07-30 00:00 heart_rate 99 /min 2022-07-30 00:00 o2_saturation 98 % 2022-07-30 00:00 respiration_rate 16 /min 2022-07-30 00:00 temperature_metric 36.72 C 2022-07-30 00:00 temperature_standard 98.1 F 2022-08-06 00:00 BMI 24.7 kg/m2 2022-08-06 00:00 height_metric 182.88 cm 2022-08-06 00:00 height_standard 72 in 2022-08-06 00:00 temperature_metric 36.56 C 2022-08-06 00:00 temperature_standard 97.8 F 2022-08-06 00:00 weight_metric 82.55 kg 2022-08-06 00:00 weight_standard 181.99 lb 2022-08-07 00:00 BP_diastolic 106 mmHg 2022-08-07 00:00 BP_systolic 163 mmHg 2022-08-07 00:00 heart_rate 82 /min 2022-08-07 00:00 o2_saturation 97 % 2022-08-07 00:00 respiration_rate 16 /min
[2022-08-11 20:13] LABS: BASOPHILS # (AUTO) 0.1 10^3/uL (0.0-0.1); BASOPHILS % (AUTO) 0.5 %; EOSINOPHILS # (AUTO) 0.2 10^3/uL (0.0-0.7); EOSINOPHILS % (AUTO) 1.8 %; HCT - HEMATOCRIT 41.5 % (42.0-52.0); HGB - HEMOGLOBIN 12.7 g/dL (14.0-18.0); LYMPHOCYTES # (AUTO) 0.8 10^3/uL (1.5-3.5); LYMPHOCYTES % (AUTO) 7.4 %; MEAN CORPUSCULAR HEMOGLOBIN 26.7 pg (27.0-31.0); MEAN CORPUSCULAR HGB CONC 30.6 g/dL (32.0-36.0); MEAN CORPUSCULAR VOLUME 87.2 fL (80.0-94.0); MEAN PLATELET VOLUME 11.6 fL (7.4-11.4); MONOCYTES # (AUTO) 0.5 10^3/uL (0.0-1.0); MONOCYTES % (AUTO) 4.7 %; NEUTROPHILS # (AUTO) 9.3 10^3/uL (1.5-6.6); NEUTROPHILS % (AUTO) 85.2 %; PLT - PLATELET COUNT 308 10^3/uL (130-450); RED BLOOD COUNT 4.76 10^6/uL (4.70-6.10); RED CELL DISTRIBUTION WIDTH 18.4 % (12.0-15.0); WHITE BLOOD COUNT 10.9 x10^3/uL (4.8-10.8)
[2022-08-11 20:26] LABS: ALBUMIN 3.6 g/dL (3.2-5.5); ALBUMIN/GLOBULIN RATIO 0.9 (1.0-2.2); BILIRUBIN,TOTAL 0.3 mg/dL (0.2-1.0); CREATININE 1.7 mg/dL (0.6-1.2); POTASSIUM 4.5 mmol/L (3.5-5.0); TOTAL PROTEIN 7.5 g/dL (6.7-8.2)
[2022-08-11] MEDS ORDERED: SODIUM CHLORIDE 0.9% 1,000 ML IV STA (21:00)
[2022-08-11 21:34] LABS: CORONAVIRUS 229E-RESP PCR NOT DETECTED; CORONAVIRUS HKU1-RESP PCR NOT DETECTED; CORONAVIRUS NL63-RESP PCR NOT DETECTED; CORONAVIRUS OC43-RESP PCR NOT DETECTED
[2022-08-11 21:36] LABS: B. PARAPERTUSSIS- RESP PCR PAN NOT DETECTED; B. PERTUSSIS- RESP PCR PANEL NOT DETECTED; C. PNEUMONIAE- RESP PCR PANEL NOT DETECTED; HUMAN METAPNEUMOVIRUS NOT DETECTED; INFLUENZA A H3- RESP PCR PANEL DETECTED; INFLUENZA B - RESP PCR PANEL NOT DETECTED; M. PNEUMONIAE- RESP PCR PANEL NOT DETECTED; PARAINFLUENZA VIRUS 1 NOT DETECTED; PARAINFLUENZA VIRUS 2 NOT DETECTED; PARAINFLUENZA VIRUS 3 NOT DETECTED; PARAINFLUENZA VIRUS 4 NOT DETECTED; RHINOVIRUS/ENTEROVIRUS NOT DETECTED; RSV- RESP PCR PANEL NOT DETECTED; SARS-CoV-2 -RESP PCR PANEL DETECTED
[2022-08-11] MEDS ORDERED: oxyCODONE 5 MG TABLET PO STA (22:04)
[2022-08-11] MEDS ORDERED: oxyCODONE/ACET 5/325 Prepack 4 PO STA (22:04)
[2022-08-11] MEDS ORDERED: OSELTAMIVIR 75 MG CAPSULE PO STA (22:06)
[2022-08-11] MEDS ORDERED: NIRMATRELVIR/RITONAVIR PREPACK PO STA (22:06)
[2022-08-11 23:05] VITALS: BP 155/107
== END 2022-08-11 23:06 | disposition home or self-care (01) ==
LOC: ED 19:25
DX: J10.1 Influenza due to other identified influenza virus with other respiratory manifestations (principal); U07.1 COVID-19; G82.20 Paraplegia, unspecified
CPT/HCPCS: 36415; 80053; 83605; 83690; 85025; 87633; 96360; 99283; 99284; A9270; J3490

== ENCOUNTER 2022-08-11 23:09 | Outpatient (CLI) | payer MEDICARE, MEDICAID | END 2022-08-11 23:10 | disposition home or self-care (01) | LOC: EMS 23:09 | PROVIDERS: ATTEND Emergency Medicine | DX: G82.20 Paraplegia, unspecified (principal) | CPT/HCPCS: A0425; A0428 ==

== ENCOUNTER 2022-08-13 13:35 | Outpatient (CLI) | payer MEDICARE, MEDICAID | END 2022-08-13 23:59 | disposition short-term general hospital (02) | LOC: EMS 13:35 | DX: R07.9 Chest pain, unspecified (principal); R61 Generalized hyperhidrosis; U07.1 COVID-19 | CPT/HCPCS: A0425; A0427 ==

== ENCOUNTER 2022-08-13 14:07 | Emergency (ER) | payer MEDICARE, MEDICAID ==
--- NOTE | 2022-08-13 14:09 | ED Physician Documentation ---
PD HPI CHEST PAIN - Stated complaint Stated Complaint: CP - History obtained from History obtained from: Patient - History of Present Illness Timing - onset: Today Timing - onset during: Rest (The patient had onset of sternal area sharp chest pain associated with coughing and deep breathing started today. He was tested positive for COVID and flu several days ago. He has been having moderate cough. Denies wheezing.) Timing - duration: Days (1) Timing - details: Abrupt onset, Intermittant Quality: Aching, Sharp Location: Substernal Radiation: No: Neck, Back Worsened by: Inspiration, Movement, Other (cough) Associated symptoms: Shortness of air, Cough. No: Nausea, Vomiting, Palpitations Similar symptoms before: Has not had sx before (History of ongoing back pain but has not had chest pain previously.) Recently seen: Emergency Dept Review of Systems Constitutional: reports: Fever, Myalgias Nose: reports: Congestion Cardiac: reports: Chest pain / pressure. denies: Palpitations, Pedal edema Respiratory: reports: Cough. denies: Wheezing GI: reports: Nausea. denies: Vomiting, Diarrhea Skin: denies: Rash Neurologic: denies: Near syncope PD PAST MEDICAL HISTORY - Past Medical History Cardiovascular: Hypertension, Murmur, Other Respiratory: Asthma Neuro: Other Endocrine/Autoimmune: None GI: Chronic constipation : Incontinence HEENT: None Psych: Depression Musculoskeletal: Chronic back pain, Other Derm: Other - Past Surgical History Past Surgical History: Yes General: Gastric surgery Ortho: Spine surgery HEENT: Tonsil/Adenoidectomy - Present Medications Home Medications: Ambulatory Orders Medication Instructions Recorded Confirmed Pregabalin [Lyrica] 300 mg PO 0600,1800 08/02/21 08/11/22 Duloxetine HCl [Cymbalta] 60 mg PO DAILY 05/26/22 08/11/22 Metoprolol Tartrate [Lopressor] 50 mg PO BIDWM 05/26/22 08/11/22 Acetaminophen [Acetaminophen Extra 500 mg PO QID PRN #50 tablet 07/08/22 08/11/22 Strength] methocarbamoL [Methocarbamol] 500 mg PO TID PRN 07/08/22 08/11/22 Lidocaine Patch 5% [Lidoderm Patch] 1 patch TOP DAILY PRN #10 patch 07/10/22 08/11/22 Lidocaine Patch 5% [Lidoderm Patch] 1 patch TOP DAILY PRN #10 patch 07/16/22 08/11/22 levoFLOXacin [Levaquin] 250 mg PO ONCE #10 tablet 07/18/22 08/11/22 Lidocaine Patch 5% [Lidoderm Patch] 1 patch TOP DAILY PRN #10 patch 07/20/22 08/11/22 Oxycodone HCl/Acetaminophen 1 - 2 each PO Q6H PRN #14 tablet 07/22/22 08/11/22 [Percocet 5-325 mg Tablet] Sulfamethox/Trimeth 800/160 1 each PO BID #14 tablet 07/24/22 08/11/22 [Bactrim Ds 800/160] Oxycodone HCl/Acetaminophen 1 each PO TID PRN #14 tablet 07/28/22 08/11/22 [Percocet 5-325 mg Tablet] Ketorolac [Toradol] 10 mg PO Q6H PRN #20 tablet 08/05/22 08/11/22 Oseltamivir [Tamiflu] 75 mg PO BID #9 cap 08/11/22 - Allergies Allergies/Adverse Reactions: Allergies Allergy/AdvReac Type Severity Reaction Status Date / Time morphine Allergy Intermediate terrors Verified 08/13/22 14:15 gabapentin Allergy Unknown Verified 08/13/22 14:15 ibuprofen AdvReac Unknown Verified 08/13/22 14:15 - Social History Does the pt smoke?: No Smoking Status: Never smoker Does the pt drink ETOH?: Yes Does the pt have substance abuse?: No - Immunizations Immunizations are current?: Yes - POLST Patient has POLST: No PD ED PE NORMAL - Vitals Vital signs reviewed: Yes - General General: Alert and oriented X 3, Well developed/nourished, Other (appeara anxious and uncomfortable. ) - HEENT HEENT: Pharynx benign - Neck Neck: Supple, no meningeal sign, No adenopathy - Cardiac Cardiac: RRR, No murmur - Respiratory Respiratory: No respiratory distress, Clear bilaterally, Other (chestwall tenderness lower sternum. Also mild in epigastric area without guarding. ) - Abdomen Abdomen: Soft, Non distended - Derm Derm: Warm and dry - Extremities Extremities: Other (atrophy of leg muscles. Bowling in place. ) Results - Vitals Vitals: Vital Signs - 24 hr 08/13/22 08/13/22 08/13/22 14:15 15:00 16:44 Temperature 37.1 C Heart Rate 84 81 76 Respiratory 17 14 12 Rate Blood Pressure 133/99 H 136/105 H 136/78 H O2 Saturation 95 95 95 Oxygen O2 Source Room air - EKG (time done) 14:17 Rate: Rate (enter#) (84) Rhythm: NSR [place]: Normal Intervals: Normal [place] QRS: Normal Ischemia: Normal ST segments, ST elevation c/w repol. No: ST elevation c/w ischemia, ST depression - Labs Labs: Laboratory Tests 08/13/22 08/13/22 08/13/22 14:57 14:57 14:57 WBC 6.3 RBC 5.62 Hgb 15.0 Hct 48.4 MCV 86.1 MCH 26.7 L MCHC 31.0 L RDW 18.7 H Plt Count 326 MPV 11.7 H Neut # (Auto) 4.5 Lymph # (Auto) 0.9 L [place] # (Auto) 0.6 Eos # (Auto) 0.2 Baso # (Auto) 0.1 Absolute Nucleated RBC 0.00 Nucleated RBC % 0.0 Sodium 135 Potassium 4.7 Chloride 99 L Carbon Dioxide 24 Anion Gap 12.0 BUN 34 H Creatinine 1.0 Estimated GFR (MDRD) 81 L Glucose 110 H Calcium 9.9 Total Bilirubin 1.1 H AST 19 ALT 21 Alkaline Phosphatase 91 Troponin I High Sens 4.0 B-Natriuretic Peptide Total Protein 9.2 H Albumin 4.6 Globulin 4.6 H Albumin/Globulin Ratio 1.0 Lipase 37 08/13/22 08/13/22 14:57 16:04 WBC RBC Hgb Hct MCV MCH MCHC RDW Plt Count MPV Neut # (Auto) Lymph # (Auto) [place] # (Auto) Eos # (Auto) Baso # (Auto) Absolute Nucleated RBC Nucleated RBC % Sodium Potassium Chloride Carbon Dioxide Anion Gap BUN Creatinine Estimated GFR (MDRD) Glucose Calcium Total Bilirubin AST ALT Alkaline Phosphatase Troponin I High Sens 5.1 B-Natriuretic Peptide 6 Total Protein Albumin Globulin Albumin/Globulin Ratio Lipase - Rads (name of study) chest xray Radiology: Prelim report reviewed (no acute process), See rad report PD Medical Decision Making - ED course Complexity details: considered differential (The patient has sharp pleuritic and musculoskeletal type pain in the sternal area associated with cough and positive COVID/flu for the last 4 days. Pain just today. Presume musculoskeletal or pleurisy. We will get a chest x-ray as well as EKG and troponin), d/w patient Departure - Departure Disposition: 01 Home, Self Care Clinical Impression: Atypical chest pain Condition: Good Instructions: ED Chest Pain Atypical Unkn Cause Follow-Up: Your,doctor in 1 week [Other] Comments: Your testing does not show any acute abnormalities today. Please follow-up with your doctor for further care. Please return if you worsen.
--- OUTSIDE RECORDS SUMMARY | 2022-08-13 14:46 | EXTERNAL MEDICAL SUMMARY RPT | Continuity of Care Document ---
:1975 Author Organization [place] Address [address] [place] [address] Phone Care Team Providers Name Role Phone Unavailable Unavailable Unavailable Danika García Unavailable Unavailable Allergies and Intolerances date description facility type (no date) gabapentin [facility] (unknown) (no date) morphine [facility] (unknown) Encounters No information. Functional Status No information. Immunizations No information. Medications date description facility 2022-07-30 00:00 Oxycodone-Acetaminophen [facility] 2022-07-30 00:00 Phenazopyridine [facility] 2022-08-06 00:00 Doxycycline Hyclate [facility] 2022-07-11 00:00 Lidocaine [facility] 2022-07-24 00:00 Sulfamethoxazole-Trimethoprim [facility] 2022-07-30 00:00 Sulfamethoxazole-Trimethoprim [facility] 2022-07-30 00:00 Ketorolac [facility] Problems date description facility 2022-07-11 00:00 Anterior chest wall pain [facility] 2022-07-13 00:00 Strain of neck muscle [facility] 2022-07-13 00:00 Strain of thoracic region [facility] 2022-07-24 00:00 Acute urinary tract infection [facility] 2022-07-30 00:00 [facility]-06 00:00 Constipation [facility] 2022-08-06 00:00 Pyelonephritis [facility] Procedures date description facility 2022-07-12 00:00 Anaerobic Culture [facility] 2022-07-13 00:00 Anaerobic Culture [facility] 2022-07-24 00:00 Anaerobic Culture [facility] 2022-07-30 00:00 Anaerobic Culture [facility] 2022-08-07 00:00 Anaerobic [facility] 2022-07-13 00:00 Computed tomography of head or brain wi [facility] contrast 2022-07-12 00:00 Gram Stain [facility] 2022-07-13 00:00 Gram Stain [facility] 2022-07-24 00:00 Gram Stain [facility] 2022-07-30 00:00 Gram Stain [facility] 2022-08-07 00:00 Gram Stain [facility] 2022-07-11 00:00 [facility] 2022-[facility]:00 CT abdomen pelvis w [facility] 2022-07-13 00:00 Computed tomography of cervical spine w [facility] contrast 2022-07-13 00:00 CT [facility]:00 CT lumbar spine [facility] Results/Labs test date author facility value unit [...] nown) date) unknown) (unknown) (no (unknown) (unknown) [id number] (units (unkno wn) date) unknown) (unknown) (no [...] (unknown) (unknown) : 1975 (units (unknown) date) Acct:[id number] unknown) (unknown) (no (unknown) (unknown) Date of [...] nknown) date) unknown) (unknown) (no (unknown) (unknown) [facility] (units (unknown) date) [address] [place] [address] unknown) [place] [address] (unknown) (no (unknown) (unknown) Label Comments: (units [...] nown) date) unknown) (unknown) (no (unknown) (unknown) [id number] (units (unkno wn) date) unknown) (unknown) (no (unknown) (unknown) 1. No acute (units (un known) date) cardiopulmonary unknown) disease. (unknown) (no (unknown) (unknown) 07/11/22 (units (unkno wn) date) unknown) (unknown) (no (unknown) (unknown) [facility] [address] [place] [address] (units (unknown) date) unknown) (unknown) (no (unknown) (unknown) Accession Number: (units (unknown) date) [id number] unknown) (unknown) (no (unknown) (unknown) Age/Sex: 47 / M (units (unknown) date) Date of Service: unknown) (unknown) (no (unknown) (unknown) [place] (units ( unknown) date) [address] unknown) (unknown) (no (unknown) (unknown) Approved by: (units (u nknown) date) Hossein Almanzar unknown) Marcial on 07/11/2022 at 21:50 (unknown) (no (unknown) (unknown) Bones and chest (units (unknown) date) wall: No unknown) suspicious bony lesions. Overlying soft tissues (unknown) (no (unknown) (unknown) [facility] (un known) [facility], 06/26/2022, 15:13. (unknown) (no (unknown) (unknown) : 1975 (units (unknown) date) Acct:[id number] unknown) (unknown) (no (unknown) (unknown) Dictated by: (units (u nknown) date) Hossein Almanzar unknown) Marcial on 07/11/2022 at 21:49 (unknown) (no (unknown) (unknown) FINDINGS: (units (unkn own) date) unknown) (unknown) (no (unknown) (unknown) IMPRESSION: (units (un known) date) unknown) (unknown) (no (unknown) (unknown) INDICATIONS: left (units (unknown) date) side chest pain unknown) (unknown) (no (unknown) (unknown) [facility] (units (unknown) date) unknown) (unknown) (no [...] nown) date) unknown) (unknown) (no (unknown) (unknown) [id number] (units (unkno wn) date) unknown) (unknown) (no [...] wn) date) unknown) (unknown) (no (unknown) (unknown) [address] [place] [address] (units (unknown) date) unknown) (unknown) (no (unknown) [...] (unknown) (unknown) Accession Number: (units (unknown) date) [id number] ?? unknown) (unknown) (no (unknown) (unknown) Acct:[id number] (units (unknown) date) unknown) (unknown) (no (unknown) [...] Date / Time (unknown) (no (unknown) (unknown) [place], [place] (units ( unknown) date) [address] unknown) (unknown) (no (unknown) (unknown) Approved by: (units (u nknown) date) Hossein Almanzar, unknownSairka Ceja on 07/11/2022 at 21:50? (unknown) (no [...] (unknown) (unknown) COMPARISON:? (units (u nknown) date) [facility], 06/26/2022, 15:13. [...] (unknown) (unknown) : 1975 (units (unknown) date) Acct:[id number] unknown) (unknown) (no (unknown) (unknown) : 1975 [...] date) Signs: unknown) (unknown) (no (unknown) (unknown) [facility] (units (unknown) date) [address] unknown) [place] [address] (unknown) (no (unknown) (unknown) [facility] (units (unknown) date) unknown) (unknown) (no [...] Lymph # (Auto) (units (unknown) date) 1100 (5888-2413) unknown) /uL (unknown) (no (unknown) (unknown) Lymph [...] date) unknown) (unknown) (no (unknown) (unknown) MR#: [id number] (units (unknown) date) unknown) (unknown) (no (unknown) (unknown) Mediastinum:? (units ( unknown) date) Mediastinal unknown) contours appear normal.? Heart size is normal.? (unknown) (no (unknown) (unknown) Medical History (units (unknown) date) (Reviewed 10/31/21 unknown) @ 21:00 by GENIE Johnson) (unknown) (no (unknown) (unknown) Medication (units (unk nown) date) Instructions unknown) Recorded Confirmed (unknown) (no (unknown) (unknown) Stephenson # (Auto) 300 (units (unknown) date) (0-900) /uL unknown) (unknown) (no (unknown) (unknown) [place] % (Auto) 5.5 (units (unknown) date) (3-14) % unknown) (unknown) (no (unknown) (unknown) Mother Myocardial (units (unknown) date) infarct unknown) (unknown) (no (unknown) (unknown) Neurogenic pain (units (unknown) date) unknown) (unknown) (no (unknown) (unknown) Neut # (Auto) (units ( unknown) date) 4000 (4437-3824) unknown) /uL (unknown) (no (unknown) (unknown) Neut [...] primary unknown) care provider please contact the [facility] (unknown) (no (unknown) (unknown) *Please continue [...] discussed your history (unknown) (no (unknown) (unknown) [id number] (units (unkno wn) date) unknown) (unknown) (no [...] stated above (unknown) (no (unknown) (unknown) [address] [place] [address] (units (unknown) date) unknown) (unknown) (no (unknown) [...] (unknown) (unknown) Accession Number: (units (unknown) date) [id number] ?? unknown) (unknown) (no (unknown) (unknown) Acct:[id number] (units (unknown) date) unknown) (unknown) (no (unknown) [...] (unknown) MELVINA Deng (units ( unknown) date) [address] unknown) (unknown) (no (unknown) (unknown) Anterior chest [...] (unknown) (unknown) COMPARISON:? (units (u nknown) date) [facility]ST 1 [facility], 06/26/2022, 15:13. [...] (unknown) (unknown) : 1975 (units (unknown) date) Acct:[id number] unknown) (unknown) (no (unknown) (unknown) : 1975 [...] Chest unknown) Pain (unknown) (no (unknown) (unknown) [facility] (units (unknown) date) [address] unknown) [place] [address] (unknown) (no (unknown) (unknown) [facility] (units (unknown) date) unknown) (unknown) (no [...] Lymph # (Auto) (units (unknown) date) 1100 (2616-2291) unknown) /uL (unknown) (no (unknown) (unknown) Lymph [...] date) unknown) (unknown) (no (unknown) (unknown) MR#: [id number] (units (unknown) date) unknown) (unknown) (no (unknown) [...] Instructions unknown) Recorded (unknown) (no (unknown) (unknown) Stephenson # (Auto) 300 (units (unknown) date) (0-900) /uL unknown) (unknown) (no (unknown) (unknown) [place]son % (Auto) 5.5 (units (unknown) date) (3-14) % unknown) (unknown) (no (unknown) (unknown) Mother Myocardial (units (unknown) date) infarct unknown) (unknown) (no (unknown) (unknown) Multiple causes (units (unknown) date) of chest pain unknown) considered including MO, PE, pneumothorax, (unknown) (no (unknown) (unknown) NECK: [...] # (Auto) (units ( unknown) date) 4000 (8410-0985) unknown) /uL (unknown) (no (unknown) (unknown) Neut [...] (unknown) Resource line at (units (unknown) date) [phone]. They unknown) will ask some questions about [...] nown) date) unknown) (unknown) (no (unknown) (unknown) [id number] (units (unkno wn) date) unknown) (unknown) (no (unknown) (unknown) 1. No evidence (units (unknown) date) acute fracture or unknown) dislocation. (unknown) (no (unknown) (unknown) 1. Remote (units (unkn own) date) posterior unknown) laminectomy at T8 and T9. (unknown) (no (unknown) (unknown) 07/13/22 (units (unkno wn) date) unknown) (unknown) (no (unknown) (unknown) [address] [place] [address] (units (unknown) date) unknown) (unknown) (no (unknown) [...] (unknown) (unknown) Accession Number: (units (unknown) date) [id number] unknown) (unknown) (no (unknown) (unknown) Accession Number: (units (unknown) date) [id number] unknown) (unknown) (no (unknown) (unknown) Accession Number: (units (unknown) date) [id number] unknown) (unknown) (no (unknown) (unknown) Accession Number: (units (unknown) date) [id number] unknown) (unknown) (no (unknown) (unknown) Age/Sex: 47 / M (units (unknown) date) Date of Service: unknown) (unknown) (no (unknown) (unknown) [place], [place] (units ( unknown) date) [address] unknown) (unknown) (no (unknown) (unknown) Approved by: [...] (unknown) (unknown) COMPARISON: (units (un known) date) [facility], unknown) CT, CT THORACIC SPINE WO [...] (unknown) (unknown) : 1975 (units (unknown) date) Acct:[id number] unknown) (unknown) (no (unknown) (unknown) Dictated by: [...] level of C6. (unknown) (no (unknown) (unknown) [facility] (units (unknown) date) unknown) (unknown) (no [...] nown) date) unknown) (unknown) (no (unknown) (unknown) [id number] (units (unkno wn) date) unknown) (unknown) (no [...] (unknown) (unknown) : 1975 (units (unknown) date) Acct:[id number] unknown) (unknown) (no (unknown) (unknown) Date of [...] nknown) date) unknown) (unknown) (no (unknown) (unknown) [facility] (units (unknown) date) [address] [place] [address] unknown) [place] [address] (unknown) (no (unknown) (unknown) Label Comments: (units [...] nown) date) unknown) (unknown) (no (unknown) (unknown) [id number] (units (unkno wn) date) unknown) (unknown) (no [...] (unknown) (unknown) : 1975 (units (unknown) date) Acct:[id number] unknown) (unknown) (no (unknown) (unknown) Date of [...] date) Signs: unknown) (unknown) (no (unknown) (unknown) [facility] (units (unknown) date) [address] unknown) [place] [address] (unknown) (no (unknown) (unknown) Label Comments: (units [...] nown) date) unknown) (unknown) (no (unknown) (unknown) [id number] (units (unkno wn) date) unknown) (unknown) (no [...] (unknown) (unknown) : 1975 (units (unknown) date) Acct:[id number] unknown) (unknown) (no (unknown) (unknown) Date of [...] (Reviewed unknown) 07/13/22 @ 06:20 by Stephan Isas DO) (unknown) (no (unknown) (unknown) Father CVA [...] date) Signs: unknown) (unknown) (no (unknown) (unknown) [facility] (units (unknown) date) [address] unknown) [place] [address] (unknown) (no (unknown) (unknown) Label Comments: (units [...] (unknown) (unknown) Danika García, (units (unknown) date) KAINNA [Primary unknown) Care Provider] (unknown) (no (unknown) [...] primary unknown) care provider please contact the [facility] (unknown) (no (unknown) (unknown) *Please continue [...] wn) date) unknown) (unknown) (no (unknown) (unknown) [id number] (units (unkno wn) date) unknown) (unknown) (no [...] stated above (unknown) (no (unknown) (unknown) [address] [place] [address] (units (unknown) date) unknown) (unknown) (no (unknown) [...] (unknown) (unknown) Accession Number: (units (unknown) date) [id number] ?? unknown) (unknown) (no (unknown) (unknown) Accession Number: (units (unknown) date) [id number] ?? unknown) (unknown) (no (unknown) (unknown) Accession Number: (units (unknown) date) [id number] ?? unknown) (unknown) (no (unknown) (unknown) Accession Number: (units (unknown) date) [id number] ?? unknown) (unknown) (no (unknown) (unknown) Acct:[id number] (units (unknown) date) unknown) (unknown) (no (unknown) [...] (unknown) MELVINA Deng (units ( unknown) date) [address] unknown) (unknown) (no (unknown) (unknown) Approved by: [...] (unknown) (unknown) COMPARISON:? (units (u nknown) date) [facility], unknown) CT, CT THORACIC SPINE WO [...] (unknown) (unknown) : 1975 (units (unknown) date) Acct:[id number] unknown) (unknown) (no (unknown) (unknown) : 1975 [...] Neck Pain unknown) (unknown) (no (unknown) (unknown) [facility] (units (unknown) date) [address] [place] [address] unknown) [place] [address] (unknown) (no (unknown) (unknown) [facility] (units (unknown) date) unknown) (unknown) (no [...] Pain/Injury unknown) (unknown) (no (unknown) (unknown) MR#: [id number] (units (unknown) date) unknown) (unknown) (no (unknown) [...] Ordering (units (unkno wn) date) Provider: unknown) Stepahn Issa D.O. (unknown) (no (unknown) (unknown) Orders [...] (unknown) Resource line at (units (unknown) date) [phone]. They unknown) will ask some questions about [...] primary unknown) care provider please contact the [facility] (unknown) (no (unknown) (unknown) *Please continue [...] wn) date) unknown) (unknown) (no (unknown) (unknown) [id number] (units (unkno wn) date) unknown) (unknown) (no [...] stated above (unknown) (no (unknown) (unknown) [address] [place] [address] (units (unknown) date) unknown) (unknown) (no (unknown) [...] (unknown) (unknown) Accession Number: (units (unknown) date) [id number] ?? unknown) (unknown) (no (unknown) (unknown) Accession Number: (units (unknown) date) [id number] ?? unknown) (unknown) (no (unknown) (unknown) Accession Number: (units (unknown) date) [id number] ?? unknown) (unknown) (no (unknown) (unknown) Accession Number: (units (unknown) date) [id number] ?? unknown) (unknown) (no (unknown) (unknown) Acct:[id number] (units (unknown) date) unknown) (unknown) (no (unknown) [...] Date / Time (unknown) (no (unknown) (unknown) [place], [place] (units ( unknown) date) [address] unknown) (unknown) (no (unknown) (unknown) Approved by: [...] (unknown) (unknown) COMPARISON:? (units (u nknown) date) [facility], unknown) CT, CT THORACIC SPINE WO [...] (unknown) (unknown) : 1975 (units (unknown) date) Acct:[id number] unknown) (unknown) (no (unknown) (unknown) : 1975 [...] Neck Pain unknown) (unknown) (no (unknown) (unknown) [facility] (units (unknown) date) [address] unknown) [place] [address] (unknown) (no (unknown) (unknown) [facility] (units (unknown) date) unknown) (unknown) (no [...] date) unknown) (unknown) (no (unknown) (unknown) MR#: [id number] (units (unknown) date) unknown) (unknown) (no (unknown) [...] (unknown) Resource line at (units (unknown) date) [phone]. They unknown) will ask some questions about [...] nown) date) unknown) (unknown) (no (unknown) (unknown) [id number] (units (unkno wn) date) unknown) (unknown) (no (unknown) (unknown) 1. Persistent mild (units (unknown) date) bilateral unknown) hydroureteronephrosis with bilateral ureteral (unknown) (no (unknown) (unknown) 07/03/2020, 22:25. (units (unknown) date) unknown) (unknown) (no (unknown) (unknown) 07/23/22 (units (unkno wn) date) unknown) (unknown) (no (unknown) (unknown) [address] [place] [address] (units (unknown) date) unknown) (unknown) (no (unknown) [...] (unknown) (unknown) Accession Number: (units (unknown) date) [id number] unknown) (unknown) (no (unknown) (unknown) Adrenal Glands: No (units (unknown) date) adrenal nodules. unknown) (unknown) (no (unknown) (unknown) After the (units (unkn own) date) administration of IV unknown) contrast, axial sections were acquired from the (unknown) (no (unknown) (unknown) Age/Sex: 47 / M Date (uni ts (unknown) date) of Service: unknown) (unknown) (no (unknown) ([place]) [place] [address] (unit s (unknown) date) unknown) (unknown) (no [...] (unknown) (unknown) : 1975 (units (unknown) date) Acct:[id number] unknown) (unknown) (no (unknown) (unknown) Dictated by: [...] date) Excellent. unknown) (unknown) (no (unknown) (unknown) [facility] (units (unknown) date) unknown) (unknown) (no [...] wn) date) unknown) (unknown) (no (unknown) (unknown) [facility] (units ( unknown) date) [facility], CT, CT unknown) ABDOMEN PELVIS WITH CONTRAST, 01/11/2021, 13:06. (unknown) (no (unknown) (unknown) [place] (units (unkno wn) date) unknown) (unknown) (no (unknown) (unknown) Spleen: Normal in (units (unknown) date) size. unknown) (unknown) (no (unknown) (unknown) Stomach and Bowel: (units (unknown) date) Stomach, small bowel unknown) loops, and colon are normal in caliber (unknown) (no (unknown) (unknown) TECHNIQUE: (units (unk nown) date) unknown) (unknown) (no (unknown) (unknown) There is (units (unkno wn) date) unknown) (unknown) (no (unknown) (unknown) [facility], MR, (uni ts (unknown) date) MR ABDOMEN MRCP, unknown) 06/27/2022, 10:39. [facility] (unknown) (no (unknown) (unknown) Ventral Wall: No [...] nown) date) unknown) (unknown) (no (unknown) (unknown) [id number] (units (unkno wn) date) unknown) (unknown) (no [...] (unknown) (unknown) : 1975 (units (unknown) date) Acct:[id number] unknown) (unknown) (no (unknown) (unknown) Date of [...] date) Signs: unknown) (unknown) (no (unknown) (unknown) [facility] (units (unknown) date) [address] unknown) [place] [address] (unknown) (no (unknown) (unknown) Lab Data (units [...] # (Auto) (units (unknown) date) 900 L (1748-0305) unknown) /uL (unknown) (no (unknown) (unknown) Lymph [...] date) (Reviewed unknown) 07/23/22 @ 22:58 by Stehpan Issa DO) (unknown) (no (unknown) (unknown) Medication (units (unk nown) date) Instructions unknown) Recorded Confirmed (unknown) (no (unknown) (unknown) Medication (units (unk nown) date) Instructions unknown) Recorded (unknown) (no (unknown) (unknown) Mode of arrival: (units (unknown) date) EMS unknown) (unknown) (no (unknown) (unknown) Stephenson # (Auto) (units ( unknown) date) 900 (0-900) /uL unknown) (unknown) (no (unknown) (unknown) Stephenson % (Auto) (units ( unknown) date) 11.0 [...] # (Auto) (units ( unknown) date) 6100 (9729-3012) unknown) /uL (unknown) (no (unknown) (unknown) Neut [...] wn) date) unknown) (unknown) (no (unknown) (unknown) [id number] (units (unkno wn) date) unknown) (unknown) (no [...] (unknown) (unknown) : 1975 (units (unknown) date) Acct:[id number] unknown) (unknown) (no (unknown) (unknown) Date of [...] date) Signs: unknown) (unknown) (no (unknown) (unknown) [facility] (units (unknown) date) [address] [place] [address] unknown) [place] [address] (unknown) (no (unknown) (unknown) Lab Data (units [...] (unknown) Lymph # (Auto) (units (unknown) date) (0223-0790) /uL unknown) (unknown) (no (unknown) (unknown) Lymph # (Auto) (units (unknown) date) 900 L (2803-1373) unknown) /uL (unknown) (no (unknown) (unknown) Lymph [...] date) EMS unknown) (unknown) (no (unknown) (unknown) Stephenson # (Auto) (units ( unknown) date) (0-900) /uL unknown) (unknown) (no (unknown) (unknown) Stephenson # (Auto) (units ( unknown) date) 900 (0-900) /uL unknown) (unknown) (no (unknown) (unknown) Stephenson % (Auto) (units ( unknown) date) (3-14) % unknown) (unknown) (no (unknown) (unknown) Stephenson % (Auto) (units ( unknown) date) 11.0 [...] Neut # (Auto) (units ( unknown) date) (1721-8703) /uL unknown) (unknown) (no (unknown) (unknown) Neut # (Auto) (units ( unknown) date) 6100 (5685-4806) unknown) /uL (unknown) (no (unknown) (unknown) Neut [...] (unknown) Ur Specific (units (un known) date) [place] unknown) (1.000-1.035) (unknown) (no (unknown) (unknown) Ur Specific (units (un known) date) [place] 1.010 unknown) (1.000-1.035) (unknown) (no (unknown) (unknown) [...] wn) date) unknown) (unknown) (no (unknown) (unknown) [id number] (units (unkno wn) date) unknown) (unknown) (no [...] (unknown) (unknown) : 1975 (units (unknown) date) Acct:[id number] unknown) (unknown) (no (unknown) (unknown) Date of [...] unknown) Infection (UTI) (unknown) (no (unknown) (unknown) [facility] (units (unknown) date) [address] [place] [address] unknown) [place] [address] (unknown) (no (unknown) (unknown) Lab Data (units [...] (unknown) Lymph # (Auto) (units (unknown) date) (8959-1153) /uL unknown) (unknown) (no (unknown) (unknown) Lymph # (Auto) 900 (units (unknown) date) L (2816-1107) /uL unknown) (unknown) (no (unknown) (unknown) Lymph [...] date) EMS unknown) (unknown) (no (unknown) (unknown) Stephenson # (Auto) (units ( unknown) date) (0-900) /uL unknown) (unknown) (no (unknown) (unknown) Stephenson # (Auto) 900 (units (unknown) date) (0-900) /uL unknown) (unknown) (no (unknown) (unknown) Stephenson % (Auto) (units ( unknown) date) (3-14) % unknown) (unknown) (no (unknown) (unknown) Stephenson % (Auto) 11.0 (units (unknown) date) (3-14) [...] Neut # (Auto) (units ( unknown) date) (7736-5950) /uL unknown) (unknown) (no (unknown) (unknown) Neut # (Auto) 6100 (units (unknown) date) (3009-4438) /uL unknown) (unknown) (no (unknown) (unknown) Neut [...] (unknown) Ur Specific (units (un known) date) [place] unknown) (1.000-1.035) (unknown) (no (unknown) (unknown) Ur Specific (units (un known) date) [place] 1.010 unknown) (1.000-1.035) (unknown) (no (unknown) (unknown) [...] wn) date) unknown) (unknown) (no (unknown) (unknown) [id number] (units (unkno wn) date) unknown) (unknown) (no [...] date) unknown) (unknown) (no (unknown) (unknown) [address] [place] [address] (units (unknown) date) unknown) (unknown) (no (unknown) [...] wn) date) unknown) (unknown) (no (unknown) (unknown) ?[facility] (units ( unknown) date) [facility], CT, CT unknown) ABDOMEN PELVIS WITH CONTRAST, [...] (unknown) (unknown) Accession Number: (units (unknown) date) [id number] ?? unknown) (unknown) (no (unknown) (unknown) Acct:[id number] (units (unknown) date) unknown) (unknown) (no (unknown) [...] Time (unknown) (no (unknown) (unknown) [place] Deng [address] (unit s (unknown) date) unknown) (unknown) (no [...] (unknown) (unknown) : 1975 (units (unknown) date) Acct:[id number] unknown) (unknown) (no (unknown) (unknown) : 1975 [...] unknow n) (UTI) (unknown) (no (unknown) (unknown) [facility] 1211 (uni ts (unknown) date) [address] [place] [address], unknown ) [place] [address] (unknown) (no (unknown) (unknown) [facility] (units (unknown) date) unknown) (unknown) (no [...] (unknown) Lymph # (Auto) (units (unknown) date) (6677-9321) /uL unknown) (unknown) (no (unknown) (unknown) Lymph # (Auto) 900 L (uni ts (unknown) date) (0090-6972) /uL unknown) (unknown) (no (unknown) (unknown) Lymph [...] date) unknown) (unknown) (no (unknown) (unknown) MR#: [id number] (units (unknown) date) unknown) (unknown) (no (unknown) [...] (unknown) date) unknown) (unknown) (no (unknown) (unknown) Stephenson # (Auto) (0-900) (un its (unknown) date) /uL unknown) (unknown) (no (unknown) (unknown) Stephenson # (Auto) 900 (units (unknown) date) (0-900) /uL unknown) (unknown) (no (unknown) (unknown) Stephenson % (Auto) (3-14) % (u nits (unknown) date) unknown) (unknown) (no (unknown) (unknown) Stephenson % (Auto) 11.0 (units (unknown) date) (3-14) [...] Neut # (Auto) (units ( unknown) date) (4429-7008) /uL unknown) (unknown) (no (unknown) (unknown) Neut # (Auto) 6100 (units (unknown) date) (3405-3896) /uL unknown) (unknown) (no (unknown) (unknown) Neut [...] wn) date) unknown) (unknown) (no (unknown) (unknown) [place] (units (unkno wn) date) unknown) (unknown) (no [...] unknown) (unknown) (no (unknown) (unknown) Ur Specific [place] (unit s (unknown) date) (1.000-1.035) unknown) (unknown) (no (unknown) (unknown) Ur Specific [place] (unit s (unknown) date) 1.010 (1.000-1.035) unknown) [...] (unknown) date) unknown) (unknown) (no (unknown) (unknown) [facility], MR, (uni ts (unknown) date) MR ABDOMEN MRC, unknown) 06/27/2022, 10:39.? [place] (unknown) (no (unknown) (unknown) [place]: [...] date) unknown) (unknown) (no (unknown) (unknown) [facility] NURSING AGENCY MANAGER (units (unknown) date) unknown) (unknown) (no (unknown) [...] nown) date) unknown) (unknown) (no (unknown) (unknown) [id number] (units (unkno wn) date) unknown) (unknown) (no [...] (unknown) (unknown) : 1975 (units (unknown) date) Acct:[id number] unknown) (unknown) (no (unknown) (unknown) Date of Service: (units (unknown) date) 07/30/22 unknown) (unknown) (no (unknown) (unknown) Departure (units (unkn own) date) unknown) (unknown) (no (unknown) (unknown) Discharge Plan (units (unknown) date) unknown) (unknown) (no (unknown) (unknown) Discontinued (units (u nknown) date) Medications unknown) (unknown) (no (unknown) (unknown) ER Physician: (units ( unknown) date) Za Harrell unknown) SURGICAL PROCESSOR (unknown) (no (unknown) (unknown) Emergency Report (units [...] date) Signs: unknown) (unknown) (no (unknown) (unknown) [facility] (units (unknown) date) [address] unknown) [place] [address] (unknown) (no (unknown) (unknown) Label Comments: (units [...] date) unknown) (unknown) (no (unknown) (unknown) #: [id number] (units (un known) date) unknown) (unknown) (no [...] primary care unknown) provider please contact the [facility] (unknown) (no (unknown) (unknown) *Please continue [...] own) date) unknown) (unknown) (no (unknown) (unknown) [id number] (units (unkno wn) date) unknown) (unknown) (no [...] date) unknown) (unknown) (no (unknown) (unknown) [address] [place] [address], (units (unknown) date) [facility], [address] unknown) (unknown) (no (unknown) (unknown) 18:19 (units (unkno wn) date) unknown) (unknown) (no (unknown) (unknown) 300 mg PO BID (units ( unknown) date) unknown) (unknown) (no (unknown) (unknown) 50 mg PO BID (units (u nknown) date) unknown) (unknown) (no (unknown) (unknown) (units (unknown) date) Unit#: [id number] unknown) : 1975Location: ED (unknown) (no (unknown) [...] patient was unknown) prescribed but did not picker due to wrong pharmacy (unknown) (no (unknown) [...] date) Impression: unknown) (unknown) (no (unknown) (unknown) [place] Count (units (u nknown) date) >100,000 CFU/ml unknown) (unknown) (no (unknown) (unknown) Consult to [facility] [place] (units ([place]) date) Operating Room Nurse unknown) Stat (unknown) (no (unknown) (unknown) Course (units (unkno wn) date) unknown) (unknown) (no (unknown) (unknown) Stephan Issa D.O. (units (unknown) date) unknown) (unknown) (no (unknown) (unknown) : 1975 (units (unknown) date) Acct:[id number] unknown) (unknown) (no (unknown) (unknown) Date of [...] unknown) Infection (UTI) (unknown) (no (unknown) (unknown) [facility] (units (unknown) date) [address] unknown) [place] [address] (unknown) (no (unknown) (unknown) [facility] (units (unknown) date) Laboratory CLIA ID unknown) [id number] (unknown) (no (unknown) (unknown) Ketorolac (units (unkn [...] date) CULTURE unknown) (unknown) (no (unknown) (unknown) [place]] (units (un known) date) unknown) (unknown) (no [...] (unknown) Resource line at (units (unknown) date) [phone]. They unknown) will ask some questions about [...] (unknown) date) ENTR: 07/24/22-0325 unknown) OTHR DR: aDnika García (unknown) (no (unknown) (unknown) SPDESC: RECD: (units ( unknown) date) 07/23/22-2340 SUBM unknown) DR: Tian Hebert D.O. (unknown) (no (unknown) (unknown) SPEC #: (units (unkno wn) date) [id number] JOVANI: unknown) 07/23/22 STATUS: COMP REQ (unknown) [...] patient has unknown) not been able to picker his antibiotics for (unknown) (no (unknown) (unknown) [...] which he was prescribed but unable to picker as (unknown) (no (unknown) (unknown) start these [...] date) unknown) (unknown) (no (unknown) (unknown) #: [id number] (units (un known) date) unknown) (unknown) (no [...] primary care unknown) provider please contact the [facility] (unknown) (no (unknown) (unknown) *Please continue [...] own) date) unknown) (unknown) (no (unknown) (unknown) [id number] (units (unkno wn) date) unknown) (unknown) (no [...] wn) date) unknown) (unknown) (no (unknown) (unknown) [address] [place] [address], (units (unknown) date) [facility], [address] unknown) (unknown) (no (unknown) (unknown) 18:19 (units (unkno wn) date) unknown) (unknown) (no (unknown) (unknown) 300 mg PO BID (units ( unknown) date) unknown) (unknown) (no (unknown) (unknown) 50 mg PO BID (units (u nknown) date) unknown) (unknown) (no (unknown) (unknown) (units (unknown) date) Unit#: [id number] unknown) : 1975Location: ED (unknown) (no (unknown) [...] patient was unknown) prescribed but did not picker due to wrong pharmacy (unknown) (no (unknown) [...] date) Impression: unknown) (unknown) (no (unknown) (unknown) [place] Count (units (u nknown) date) >100,000 CFU/ml unknown) (unknown) (no (unknown) (unknown) Consult to [facility] - (units (unknown) date) Operating Room Nurse unknown) Stat (unknown) (no (unknown) (unknown) Course (units (unkno wn) date) unknown) (unknown) (no (unknown) (unknown) Stephan Issa D.O. (units (unknown) date) unknown) (unknown) (no (unknown) (unknown) : 1975 (units (unknown) date) Acct:[id number] unknown) (unknown) (no (unknown) (unknown) Date of [...] unknown) Infection (UTI) (unknown) (no (unknown) (unknown) [facility] (units (unknown) date) [address] unknown) [place] [address] (unknown) (no (unknown) (unknown) [facility] (units (unknown) date) Laboratory CLIA ID unknown) [id number] (unknown) (no (unknown) (unknown) Ketorolac (units (unkn [...] 07/30/22 unknown) @ 19:09 by Za Harrell [facility]) (unknown) (no (unknown) (unknown) Medical decision (units [...] date) CULTURE unknown) (unknown) (no (unknown) (unknown) [place]] (units (un known) date) unknown) (unknown) (no [...] (unknown) Resource line at (units (unknown) date) [phone]. They unknown) will ask some questions about [...] (unknown) SPEC #: (units (unkno wn) date) 22:[id number] JOVANI: unknown) 07/23/22 STATUS: COMP REQ (unknown) [...] patient has unknown) not been able to picker his antibiotics for (unknown) (no (unknown) (unknown) [...] date) be picked up unknown) tomorrow from [facility] in [place], patient is (unknown) (no (unknown) (unknown) metoprolol [...] which he was prescribed but unable to picker as (unknown) (no (unknown) (unknown) start these [...] date) unknown) (unknown) (no (unknown) (unknown) #: [id number] (units (un known) date) unknown) (unknown) (no [...] primary care unknown) provider please contact the [facility] (unknown) (no (unknown) (unknown) *Please continue [...] own) date) unknown) (unknown) (no (unknown) (unknown) [id number] (units (unkno wn) date) unknown) (unknown) (no [...] date) unknown) (unknown) (no (unknown) (unknown) [address] [place] [address], (units (unknown) date) [place], [address] unknown) (unknown) (no (unknown) (unknown) 18:19 (units [...] (no (unknown) (unknown) (units (unknown) date) Unit#: [id number] unknown) : 1975Location: ED (unknown) (no (unknown) [...] patient was unknown) prescribed but did not picker due to wrong pharmacy (unknown) (no (unknown) [...] date) Impression: unknown) (unknown) (no (unknown) (unknown) [place] Count (units (u nknown) date) >100,000 CFU/ml unknown) (unknown) (no (unknown) (unknown) Consult to [facility] - (units (unknown) date) Operating Room Nurse unknown) Stat (unknown) (no (unknown) (unknown) Course (units (unkno wn) date) unknown) (unknown) (no (unknown) (unknown) Stephan Issa D.O. (units (unknown) date) unknown) (unknown) (no (unknown) (unknown) : 1975 (units (unknown) date) Acct:[id number] unknown) (unknown) (no (unknown) (unknown) Date of [...] (units ( unknown) date) Za Harrell unknown) SURGICAL PROCESSOR (unknown) (no (unknown) (unknown) Emergency Report (units (unknown) date) unknown) (unknown) (no (unknown) (unknown) Exam Narrative: (units (unknown) date) unknown) (unknown) (no (unknown) (unknown) Exam (units (unkno wn) date) unknown) (unknown) (no (unknown) (unknown) FAX TO: (units (unkno wn) date) unknown) (unknown) (no (unknown) (unknown) Family History (units (unknown) date) (Reviewed 07/30/22 unknown) @ 19:09 by Za Harrell [facility]) (unknown) (no (unknown) (unknown) Father CVA (units [...] Male, Urinary Tract (unknown) (no (unknown) (unknown) [facility] (units (unknown) date) [address] unknown) [place] [address] (unknown) (no (unknown) (unknown) [facility] (units (unknown) date) Laboratory CLIA ID unknown) [id number] (unknown) (no (unknown) (unknown) Ketorolac (units (unkn [...] 07/30/22 unknown) @ 19:09 by Za Harrell [facility]) (unknown) (no (unknown) (unknown) Medical decision (units [...] date) CULTURE unknown) (unknown) (no (unknown) (unknown) [place]] (units (un known) date) unknown) (unknown) (no [...] (unknown) Resource line at (units (unknown) date) [phone]. They unknown) will ask some questions about [...] (unknown) SPEC #: (units (unkno wn) date) [id number] JOVANI: unknown) 07/23/22 STATUS: COMP REQ (unknown) [...] 07/30/22 unknown) @ 19:09 by Za Harrell [facility]) (unknown) (no (unknown) (unknown) Take 1 capsule [...] patient has unknown) not been able to picker his antibiotics for (unknown) (no (unknown) (unknown) [...] date) [facility] up unknown[facility] [place], patient is (unknown) (no (unknown) (unknown) metoprolol [...] which he was prescribed but unable to picker as (unknown) (no (unknown) (unknown) start these [...] date) unknown) (unknown) (no (unknown) (unknown) #: [id number] (units (un known) date) unknown) (unknown) (no [...] primary care unknown) provider please contact the [facility] (unknown) (no (unknown) (unknown) *Please continue [...] own) date) unknown) (unknown) (no (unknown) (unknown) [id number] (units (unkno wn) date) unknown) (unknown) (no [...] date) unknown) (unknown) (no (unknown) (unknown) [address] [place] [address], (units (unknown) date) [place], [address] unknown) (unknown) (no (unknown) (unknown) 18:19 07/30/22 [...] (no (unknown) (unknown) (units (unknown) date) Unit#: [id number] unknown) : 1975Location: ED (unknown) (no (unknown) [...] patient was unknown) prescribed but did not picker due to wrong pharmacy (unknown) (no (unknown) [...] date) Impression: unknown) (unknown) (no (unknown) (unknown) [place] Count (units (u nknown) date) >100,000 CFU/ml unknown) (unknown) (no (unknown) (unknown) Consult to [facility] - (units (unknown) date) Operating Room Nurse unknown) Stat (unknown) (no (unknown) (unknown) Course (units (unkno wn) date) unknown) (unknown) (no (unknown) (unknown) Stephan Issa D.O. (units (unknown) date) unknown) (unknown) (no (unknown) (unknown) : 1975 (units (unknown) date) Acct:[id number] unknown) (unknown) (no (unknown) (unknown) Date of [...] Male, Urinary Tract (unknown) (no (unknown) (unknown) [facility] (units (unknown) date) [address] [place] [address] unknown) [place] [address] (unknown) (no (unknown) (unknown) [facility] (units (unknown) date) Laboratory CLIA ID unknown) [id number] (unknown) (no (unknown) (unknown) Ketorolac (units (unkn [...] date) CULTURE unknown) (unknown) (no (unknown) (unknown) [place]] (units (un known) date) unknown) (unknown) (no [...] (unknown) Resource line at (units (unknown) date) [phone]. They unknown) will ask some questions about [...] (unknown) SPEC #: (units (unkno wn) date) [id number] JOVANI: unknown) 07/23/22 STATUS: COMP REQ (unknown) [...] 07/30/22 unknown) @ 19:09 by Za Harrell [facility]) (unknown) (no (unknown) (unknown) Source: patient (units [...] 07/30/22 unknown) @ 19:09 by Za Harrell [facility]) (unknown) (no (unknown) (unknown) Take 1 capsule [...] patient has unknown) not been able to picker his antibiotics for (unknown) (no (unknown) (unknown) [...] date) be picked up unknown) tomorrow from [facility] [place], patient is (unknown) (no (unknown) (unknown) metoprolol [...] which he was prescribed but unable to picker as (unknown) (no (unknown) (unknown) start these [...] (unknown) without (units (unkno wn) date) obstruction, Agil unknown) care completed without new wounds, barrier [...] date) unknown) (unknown) (no (unknown) (unknown) #: [id number] (units (un known) date) unknown) (unknown) (no [...] primary care unknown) provider please contact the [facility] (unknown) (no (unknown) (unknown) *Please continue [...] own) date) unknown) (unknown) (no (unknown) (unknown) [id number] (units (unkno wn) date) unknown) (unknown) (no [...] date) unknown) (unknown) (no (unknown) (unknown) [address] [place] [address], (units (unknown) date) [place], [address] unknown) (unknown) (no (unknown) (unknown) 18:19 07/30/22 [...] (no (unknown) (unknown) (units (unknown) date) Unit#: [id number] unknown) : 1975Location: ED (unknown) (no (unknown) [...] patient was unknown) prescribed but did not picker due to wrong pharmacy (unknown) (no (unknown) [...] Called To: (units (unk nown) date) KSCHERER NURSING 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 unknown) (unknown) (no (unknown) (unknown) Cardiovascular: (units (unknown) date) Tachycardic rate unknown) and regular rhythm, no peripheral edema, warm (unknown) (no (unknown) (unknown) Chief complaint: (units (unknown) date) Urogenital-Male unknown) (unknown) (no (unknown) (unknown) Clinical (units (unkno wn) date) Impression: unknown) (unknown) (no (unknown) (unknown) [place] Count (units (u nknown) date) >100,000 CFU/ml unknown) (unknown) (no (unknown) (unknown) Cosign (units (unkno wn) date) unknown) (unknown) (no (unknown) (unknown) Course (units (unkno wn) date) unknown) (unknown) (no (unknown) (unknown) Stephan Issa D.O. (units (unknown) date) unknown) (unknown) (no (unknown) (unknown) : 1975 (units (unknown) date) Acct:[id number] unknown) (unknown) (no (unknown) (unknown) Date of [...] Male, Urinary Tract (unknown) (no (unknown) (unknown) [facility] (units (unknown) date) [address] unknown) [place] [address] (unknown) (no (unknown) (unknown) [facility] (units (unknown) date) Laboratory CLIA ID unknown) [id number] (unknown) (no (unknown) (unknown) Ketorolac (units (unkn [...] 07/30/22 unknown) @ 19:09 by Za Harrell [facility]) (unknown) (no (unknown) (unknown) Medical decision (units [...] date) CULTURE unknown) (unknown) (no (unknown) (unknown) [place]] (units (un known) date) unknown) (unknown) (no [...] (unknown) Resource line at (units (unknown) date) [phone]. They unknown) will ask some questions about [...] (unknown) SPEC #: (units (unkno wn) date) [id number] JOVANI: unknown) 07/23/22 STATUS: COMP REQ (unknown) [...] patient has unknown) not been able to picker his antibiotics for (unknown) (no (unknown) (unknown) [...] date) be picked up unknown) tomorrow from [facility] in [place], patient is (unknown) (no (unknown) (unknown) metoprolol [...] which he was prescribed but unable to picker as (unknown) (no (unknown) (unknown) start these [...] nown) date) unknown) (unknown) (no (unknown) (unknown) [id number] (units (unkno wn) date) unknown) (unknown) (no (unknown) (unknown) 1. Enhancement of (units (unknown) date) the left kidney unknown) appears somewhat heterogeneous. This could (unknown) (no (unknown) (unknown) 08/06/22 (units (unkno wn) date) unknown) (unknown) (no (unknown) (unknown) [address] [place] [address] (units (unknown) date) unknown) (unknown) (no (unknown) [...] (unknown) (unknown) Accession Number: (units (unknown) date) [id number] unknown) (unknown) (no (unknown) (unknown) Adrenal Glands: (units (unknown) date) No nodule. unknown) (unknown) (no (unknown) (unknown) After the (units (unkn own) date) administration of unknown) oral and IV contrast, axial sections were acquired (unknown) (no (unknown) (unknown) Age/Sex: 47 / M (units (unknown) date) Date of Service: unknown) (unknown) (no (unknown) (unknown) [place], [place] (units ( unknown) date) [address] unknown) (unknown) (no (unknown) (unknown) Approved by: [...] (unknown) (unknown) COMPARISON: (units (un known) date) [facility] unknown) [facility], MR, MR ABDOMEN MRCP, 06/27/2022, 10:39. (unknown) (no (unknown) (unknown) CT Scan Report (units (unknown) date) unknown) (unknown) (no (unknown) (unknown) CT, CT ABDOMEN (units (unknown) date) PELVIS W CON, unknown) 07/23/2022, 23:14. (unknown) (no (unknown) (unknown) Comment: Findings (units (unknown) date) were discussed unknown) with Darci Baltazar PA-C at time of dictation. (unknown) (no (unknown) (unknown) : 1975 (units (unknown) date) Acct:[id number] unknown) (unknown) (no (unknown) (unknown) Dictated by: [...] date) Excellent. unknown) (unknown) (no (unknown) (unknown) [facility] (units (unknown) date) unknown) (unknown) (no [...] wn) date) unknown) (unknown) (no (unknown) (unknown) [place] (units (unkno wn) date) unknown) (unknown) (no [...] the pancreatic head, (unknown) (no (unknown) (unknown) [facility], (units (unknown) date) CT, CT ABDOMEN unknown) [...] (unknown) date) unknown) (unknown) (no (unknown) (unknown) [id number] (units (unkno wn) date) unknown) (unknown) (no [...] (unknown) (unknown) : 1975 (units (unknown) date) Acct:[id number] unknown) (unknown) (no (unknown) (unknown) Date of [...] 07/30/22 unknown) @ 19:09 by Za Harrell [facility]) (unknown) (no (unknown) (unknown) Father CVA (units [...] date) Signs: unknown) (unknown) (no (unknown) (unknown) [facility] (units (unknown) date) [address] [place] [address] Street unknown) [place] [address] (unknown) (no (unknown) (unknown) Ketorolac (units (unkn [...] (unknown) Lymph # (Auto) (units (unknown) date) (0270-1120) /uL unknown) (unknown) (no (unknown) (unknown) Lymph # (Auto) (units (unknown) date) 1200 (7634-9149) unknown) /uL (unknown) (no (unknown) (unknown) Lymph [...] 07/30/22 unknown) @ 19:09 by Za Harrell [facility]) (unknown) (no (unknown) (unknown) Medication (units (unk nown) date) Instructions unknown) Recorded Confirmed (unknown) (no (unknown) (unknown) Medication (units (unk nown) date) Instructions unknown) Recorded (unknown) (no (unknown) (unknown) [place] # (Auto) (units ( unknown) date) (0-900) /uL unknown) (unknown) (no (unknown) (unknown) [place] # (Auto) 400 (units (unknown) date) (0-900) /uL unknown) (unknown) (no (unknown) (unknown) [place] % (Auto) (units ( unknown) date) (3-14) % unknown) (unknown) (no (unknown) (unknown) [place] % (Auto) 4.7 (units (unknown) date) (3-14) % unknown) (unknown) (no (unknown) (unknown) Mother Myocardial (units (unknown) date) infarct unknown) (unknown) (no (unknown) (unknown) Neurogenic pain (units (unknown) date) unknown) (unknown) (no (unknown) (unknown) Neut # (Auto) (units ( unknown) date) (5568-6141) /uL unknown) (unknown) (no (unknown) (unknown) Neut # (Auto) 7400 (units (unknown) date) H (0912-4306) /uL unknown) (unknown) (no (unknown) (unknown) Neut [...] 07/30/22 unknown) @ 19:09 by Za Harrell [facility]) (unknown) (no (unknown) (unknown) Sodium (137-145) (units [...] (unknown) date) unknown) (unknown) (no (unknown) (unknown) [id number] (units (unkno wn) date) unknown) (unknown) (no [...] (unknown) (unknown) : 1975 (units (unknown) date) Acct:[id number] unknown) (unknown) (no (unknown) (unknown) Date of [...] date) Signs: unknown) (unknown) (no (unknown) (unknown) Integumentary/[place] (units (unknown) date) sts unknown) (unknown) (no (unknown) (unknown) [facility] (units (unknown) date) [address] unknown) [place] [address] (unknown) (no (unknown) (unknown) Ketorolac (units (unkn [...] (unknown) Lymph # (Auto) (units (unknown) date) (5296-5374) /uL unknown) (unknown) (no (unknown) (unknown) Lymph # (Auto) (units (unknown) date) 1200 (8402-4479) unknown) /uL (unknown) (no (unknown) (unknown) Lymph [...] Instructions unknown) Recorded (unknown) (no (unknown) (unknown) Stephenson # (Auto) (units ( unknown) date) (0-900) /uL unknown) (unknown) (no (unknown) (unknown) [place] # (Auto) 400 (units (unknown) date) (0-900) /uL unknown) (unknown) (no (unknown) (unknown) [place] % (Auto) (units ( unknown) date) (3-14) % unknown) (unknown) (no (unknown) (unknown) [place] % (Auto) 4.7 (units (unknown) date) (3-14) [...] Neut # (Auto) (units ( unknown) date) (0044-3868) /uL unknown) (unknown) (no (unknown) (unknown) Neut # (Auto) 7400 (units (unknown) date) H (2914-0165) /uL unknown) (unknown) (no (unknown) (unknown) Neut [...] (unknown) date) unknown) (unknown) (no (unknown) (unknown) [id number] (units (unkno wn) date) unknown) (unknown) (no [...] (unknown) (unknown) COMPARISON:? (units (u nknown) date) [facility] unknown) [facility], MR, MR ABDOMEN MRCP, 06/27/2022, 10:39.? (unknown) [...] (unknown) (unknown) : 1975 (units (unknown) date) Acct:[id number] unknown) (unknown) (no (unknown) (unknown) Date of [...] date) sts unknown) (unknown) (no (unknown) (unknown) [facility] (units (unknown) date) [address] unknown) [place] [address] (unknown) (no (unknown) (unknown) Ketorolac (units (unkn [...] (unknown) Lymph # (Auto) (units (unknown) date) (1760-9459) /uL unknown) (unknown) (no (unknown) (unknown) Lymph # (Auto) (units (unknown) date) 1200 (5843-0318) unknown) /uL (unknown) (no (unknown) (unknown) Lymph [...] the gluteal cleft (unknown) (no (unknown) (unknown) Stephenson # (Auto) (units ( unknown) date) (0-900) /uL unknown) (unknown) (no (unknown) (unknown) [place]son # (Auto) 400 (units (unknown) date) (0-900) /uL unknown) (unknown) (no (unknown) (unknown) [place] % (Auto) (units ( unknown) date) (3-14) % unknown) (unknown) (no (unknown) (unknown) [place] % (Auto) 4.7 (units (unknown) date) (3-14) [...] Neut # (Auto) (units ( unknown) date) (8661-1496) /uL unknown) (unknown) (no (unknown) (unknown) Neut # (Auto) 7400 (units (unknown) date) H (3319-3557) /uL unknown) (unknown) (no (unknown) (unknown) Neut [...] nown) date) unknown) (unknown) (no (unknown) (unknown) [place] (units (unkno wn) date) unknown) (unknown) (no [...] (unknown) (unknown) Urine Specific (units (unknown) date) [place] 1.025 unknown) (unknown) (no (unknown) (unknown) [facility], (units (unknown) date) CT, CT ABDOMEN unknown) [...] (unknown) date) unknown) (unknown) (no (unknown) (unknown) [id number] (units (unkno wn) date) unknown) (unknown) (no [...] (unknown) (unknown) COMPARISON:? (units (u nknown) date) [place] unknown) [facility], MR, MR ABDOMEN MRC, 06/27/2022, 10:39.? (unknown) [...] (unknown) (unknown) : 1975 (units (unknown) date) Acct:[id number] unknown) (unknown) (no (unknown) (unknown) Date of [...] DI for Constipation (unknown) (no (unknown) (unknown) Integumentary/[place] (units (unknown) date) sts unknown) (unknown) (no (unknown) (unknown) [facility] (units (unknown) date) [address] unknown) [place] [address] (unknown) (no (unknown) (unknown) Ketorolac (units (unkn [...] (unknown) Lymph # (Auto) (units (unknown) date) ([id number]) /uL unknown) (unknown) (no (unknown) (unknown) Lymph # (Auto) (units (unknown) date) 1200 ([id number]) unknown) /uL (unknown) (no (unknown) (unknown) Lymph [...] the gluteal cleft (unknown) (no (unknown) (unknown) [place] # (Auto) (units ( unknown) date) (0-900) /uL unknown) (unknown) (no (unknown) (unknown) [place] # (Auto) 400 (units (unknown) date) (0-900) /uL unknown) (unknown) (no (unknown) (unknown) [place] % (Auto) (units ( unknown) date) (3-14) % unknown) (unknown) (no (unknown) (unknown) [place] % (Auto) 4.7 (units (unknown) date) (3-14) [...] Neut # (Auto) (units ( unknown) date) (0314-7119) /uL unknown) (unknown) (no (unknown) (unknown) Neut # (Auto) 7400 (units (unknown) date) H (5342-1005) /uL unknown) (unknown) (no (unknown) (unknown) Neut [...] nown) date) unknown) (unknown) (no (unknown) (unknown) [place] (units (unkno wn) date) unknown) (unknown) (no [...] (unknown) (unknown) Urine Specific (units (unknown) date) [place] 1.025 unknown) (unknown) (no (unknown) (unknown) [facility], (units (unknown) date) CT, CT ABDOMEN unknown) [...] facility 2022-07-11 00:00 Current some day smoker [facility] 2022-07-13 00:00 Current some day smoker [facility] 2022-07-23 00:00 Ex-smoker (finding) [facility] 2022-07-30 00:00 Ex-smoker (finding) [facility] 2022-08-06 00:00 Ex-smoker (finding) [facility] Vital Signs date measurement value units [...]
[2022-08-13] MEDS ORDERED: KETOROLAC 15 MG/ML VIAL IVP STA (14:47)
[2022-08-13] MEDS ORDERED: HYDROmorphone 1 MG/ML CARPUJECT IVP STA (14:47)
[2022-08-13] MEDS ORDERED: BENZONATATE 100 MG CAPSULE PO STA (14:48)
[2022-08-13 15:05] LABS: BASOPHILS # (AUTO) 0.1 10^3/uL (0.0-0.1); BASOPHILS % (AUTO) 0.8 %; EOSINOPHILS # (AUTO) 0.2 10^3/uL (0.0-0.7); EOSINOPHILS % (AUTO) 2.9 %; HCT - HEMATOCRIT 48.4 % (42.0-52.0); LYMPHOCYTES # (AUTO) 0.9 10^3/uL (1.5-3.5); LYMPHOCYTES % (AUTO) 14.6 %; MEAN CORPUSCULAR HEMOGLOBIN 26.7 pg (27.0-31.0); MEAN CORPUSCULAR VOLUME 86.1 fL (80.0-94.0); MEAN PLATELET VOLUME 11.7 fL (7.4-11.4); MONOCYTES # (AUTO) 0.6 10^3/uL (0.0-1.0); MONOCYTES % (AUTO) 9.6 %; NEUTROPHILS # (AUTO) 4.5 10^3/uL (1.5-6.6); NEUTROPHILS % (AUTO) 71.5 %; PLT - PLATELET COUNT 326 10^3/uL (130-450); RED BLOOD COUNT 5.62 10^6/uL (4.70-6.10); RED CELL DISTRIBUTION WIDTH 18.7 % (12.0-15.0); WHITE BLOOD COUNT 6.3 x10^3/uL (4.8-10.8)
[2022-08-13 15:26] LABS: ALBUMIN 4.6 g/dL (3.2-5.5); BILIRUBIN,TOTAL 1.1 mg/dL (0.2-1.0); CALCIUM 9.9 mg/dL (8.5-10.3); POTASSIUM 4.7 mmol/L (3.5-5.0); TOTAL PROTEIN 9.2 g/dL (6.7-8.2)
--- NOTE | 2022-08-13 15:45 | XRAY Report ---
PROCEDURE: Chest 1 View X-Ray INDICATIONS: Chest Pain TECHNIQUE: One view of the chest was acquired. COMPARISON: CXR 07/14/2022. Lung bases on CT abdomen pelvis 07/22/2022. FINDINGS: Patient is leaning to the right. Surgical changes and devices: None. Lungs and pleura: No pleural effusions or pneumothorax. Lungs are clear. Mediastinum: Mediastinal contours appear normal. Heart size is normal. Bones and chest wall: No suspicious bony lesions. Overlying soft tissues appear unremarkable. Previ ously seen right pleural nodules not appreciated on x-ray. IMPRESSION: No acute cardiopulmonary abnormality identified. Reviewed by: Zaid Medel MD on 08/13/2022 3:44 PM PST Approved by: Zaid Medel MD on 08/13/2022 3:44 PM PST Station ID: [id number]
[2022-08-13] MEDS ORDERED: KETOROLAC 30 MG/ML VIAL IVP STA (17:11)
--- NOTE | 2022-08-13 17:13 | ED Physician Documentation ---
ED Addendum - Addendum Addendum: 08/13/22 17:12 Patient was signed out to me by Dr. Emery awaiting chest pain work-up. Negative high sensitive troponin x2. Symptoms are atypical for acute coronary syndrome. No acute findings on x-ray or EKG. We will have him follow-up with his doctor for further care. Patient counseled regarding signs and symptoms for which I believe and urgent re-evaluation would be necessary. Patient with good understanding of and agreement to plan and is comfortable going home at this [facility] This document was made in part using voice recognition software. While efforts are made to proofread this document, sound alike and grammatical errors may occur. No ST elevation IA, no aortic dissection, no PE, no tension pneumothorax, no aortic aneurysm Departure - Departure Disposition: 01 Home, Self Care Clinical Impression: Atypical chest pain Condition: Good Instructions: ED Chest Pain Atypical Unkn Cause Follow-Up: Your,doctor in 1 week [Other] Comments: Your testing does not show any acute abnormalities today. Please follow-up with your doctor for further care. Please return if you worsen.
[2022-08-13 18:34] VITALS: BP 121/74
== END 2022-08-13 18:41 | disposition home or self-care (01) ==
LOC: EDUNIT# → ED 14:07
DX: R07.89 Other chest pain (principal); U07.1 COVID-19; J11.1 Influenza due to unidentified influenza virus with other respiratory manifestations; G82.20 Paraplegia, unspecified
CPT/HCPCS: 36415; 71045; 80053; 83690; 83880; 84484; 85025; 93005; 96374; 96375; 96376; 99284; A9270; J1170

== ENCOUNTER 2022-08-13 18:44 | Outpatient (CLI) | payer MEDICARE, MEDICAID | END 2022-08-13 18:45 | disposition home or self-care (01) | LOC: EMS 18:44 | PROVIDERS: ATTEND Emergency Medicine | DX: G82.20 Paraplegia, unspecified (principal) | CPT/HCPCS: A0425; A0428 ==

== ENCOUNTER 2022-08-15 16:44 | Outpatient (CLI) | payer MEDICARE, MEDICAID | END 2022-08-15 16:45 | disposition critical access hospital (66) | LOC: EMS 16:44 | DX: N23 Unspecified renal colic (principal); G82.20 Paraplegia, unspecified | CPT/HCPCS: A0425; A0429 ==

== ENCOUNTER 2022-08-15 17:09 | Emergency (ER) | payer MEDICARE, MEDICAID ==
[2022-08-15] MEDS ORDERED: KETOROLAC 60 MG/2 ML VIAL IM STA (17:17)
[2022-08-15 17:19] VITALS: BP 88/53
--- NOTE | 2022-08-15 17:27 | ED Physician Documentation ---
History of Present Illness - Stated complaint Stated Complaint: KIDNEY PX - History obtained from History obtained from: Patient, EMS - Additonal information Additional information: The patient returns to the emergency department once again for chronic low back pain. He states he still has not picked up his medication from the pharmacy, which is Toradol. He was prescribed this couple of weeks ago but first, stated that he did not have fuel in the car to go get it and now, medics report that the was able to go to town to get groceries but states she did not get the medication because she can pay for it with food stamps. The patient denies any new symptoms. Review of Systems Ten Systems: 10 systems reviewed and negative Constitutional: reports: Reviewed and negative Eyes: reports: Reviewed and negative Ears: reports: Reviewed and negative Nose: reports: Reviewed and negative Throat: reports: Reviewed and negative Cardiac: reports: Reviewed and negative Respiratory: reports: Reviewed and negative GI: reports: Reviewed and negative : reports: Reviewed and negative Skin: reports: Reviewed and negative Musculoskeletal: reports: Back pain Neurologic: reports: Reviewed and negative Psychiatric: reports: Reviewed and negative Endocrine: reports: Reviewed and negative Immunocompromised: reports: Reviewed and negative PD PAST MEDICAL HISTORY - Past Medical History Cardiovascular: Hypertension, Murmur, Other Respiratory: Asthma Neuro: Other Endocrine/Autoimmune: None GI: Chronic constipation : Incontinence HEENT: None Psych: Depression Musculoskeletal: Chronic back pain, Other Derm: Other - Past Surgical History Past Surgical History: Yes General: Gastric surgery Ortho: Spine surgery HEENT: Tonsil/Adenoidectomy - Present Medications Home Medications: Ambulatory Orders Medication Instructions Recorded Confirmed Pregabalin [Lyrica] 300 mg PO 0600,1800 08/02/21 08/11/22 Duloxetine HCl [Cymbalta] 60 mg PO DAILY 05/26/22 08/11/22 Metoprolol Tartrate [Lopressor] 50 mg PO BIDWM 05/26/22 08/11/22 Acetaminophen [Acetaminophen Extra 500 mg PO QID PRN #50 tablet 07/08/22 08/11/22 Strength] methocarbamoL [Methocarbamol] 500 mg PO TID PRN 07/08/22 08/11/22 Lidocaine Patch 5% [Lidoderm Patch] 1 patch TOP DAILY PRN #10 patch 07/10/22 08/11/22 Lidocaine Patch 5% [Lidoderm Patch] 1 patch TOP DAILY PRN #10 patch 07/16/22 08/11/22 levoFLOXacin [Levaquin] 250 mg PO ONCE #10 tablet 07/18/22 08/11/22 Lidocaine Patch 5% [Lidoderm Patch] 1 patch TOP DAILY PRN #10 patch 07/20/22 08/11/22 Oxycodone HCl/Acetaminophen 1 - 2 each PO Q6H PRN #14 tablet 07/22/22 08/11/22 [Percocet 5-325 mg Tablet] Sulfamethox/Trimeth 800/160 1 each PO BID #14 tablet 07/24/22 08/11/22 [Bactrim Ds 800/160] Oxycodone HCl/Acetaminophen 1 each PO TID PRN #14 tablet 07/28/22 08/11/22 [Percocet 5-325 mg Tablet] Ketorolac [Toradol] 10 mg PO Q6H PRN #20 tablet 08/05/22 08/11/22 Oseltamivir [Tamiflu] 75 mg PO BID #9 cap 08/11/22 - Allergies Allergies/Adverse Reactions: Allergies Allergy/AdvReac Type Severity Reaction Status Date / Time morphine Allergy Intermediate terrors Verified 08/15/22 17:19 gabapentin Allergy Unknown Verified 08/15/22 17:19 ibuprofen AdvReac Unknown Verified 08/15/22 17:19 - Social History Does the pt smoke?: No Smoking Status: Never smoker Does the pt drink ETOH?: Yes Does the pt have substance abuse?: No - Immunizations Immunizations are current?: Yes - POLST Patient has POLST: No PD ED PE NORMAL - Vitals Vital signs reviewed: Yes - General General: Alert and oriented X 3, No acute distress, Well developed/nourished - HEENT HEENT: Atraumatic, PERRL, EOMI, Moist mucous membranes - Neck Neck: Supple, no meningeal sign - Respiratory Respiratory: No respiratory distress - Back Back: Other (Bilateral CVA tenderness.) - Derm Derm: Normal color, Warm and dry, Other (Stage II pressure ulcer posterior left hip. No drainage, appears healthy) - Extremities Extremities: No deformity - Neuro Neuro: Alert and oriented X 3 - Psych Psych: Normal mood, Normal affect Results - Vitals Vitals: Vital Signs - 24 hr 08/15/22 17:14 Temperature 36.1 C L Heart Rate 60 Respiratory 14 Rate Blood Pressure 88/53 L O2 Saturation 96 Oxygen O2 Source Room air PD Medical Decision Making - ED course Complexity details: considered differential, d/w patient ED course: The patient was treated with a dose of Toradol in the emergency department. 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 I have written the prescription on and vouchers so that the patient will be able to pick it up for him next time she goes to [facility]. I have discussed with the patient the need for follow-up and the usual indications for return. Departure - Departure Disposition: Home, Self Care Clinical Impression: Back pain Qualifiers: Back pain location: low back pain Chronicity: chronic Back pain laterality: bilateral Sciatica presence: without sciatica Qualified Code(s): M54.50 - Low back pain, unspecified; G89.29 - Other chronic pain Condition: Stable Instructions: ED Chronic Pain Management Comments: You have been given a pharmacy voucher for your medication. Please pick this up and take it as needed.
--- OUTSIDE RECORDS SUMMARY | 2022-08-15 17:52 | EXTERNAL MEDICAL SUMMARY RPT | Continuity of Care Document ---
:1975 Author Organization [facility] Address [address] [place] [address] Phone Care Team Providers Name Role Phone Unavailable Unavailable Unavailable Danika García Unavailable Unavailable Allergies and Intolerances date description facility type (no date) gabapentin [facility] (unknown) (no date) morphine [facility] (unknown) Encounters No information. Functional Status No information. Immunizations No information. Medications date description facility 2022-07-30 00:00 Oxycodone-Acetaminophen [facility] 2022-07-30 00:00 Phenazopyridine [facility] 2022-08-06 00:00 Doxycycline Hyclate [facility] 2022-07-11 00:00 Lidocaine [facility] 2022-07-24 00:00 Sulfamethoxazole-Trimethoprim [facility] 2022-07-30 00:00 Sulfamethoxazole-Trimethoprim [facility] 2022-07-30 00:00 Ketorolac [facility] Problems date description facility 2022-07-11 00:00 Anterior chest wall pain [facility] 2022-07-13 00:00 Strain of neck muscle [facility] 2022-07-13 00:00 Strain of thoracic region [facility] 2022-07-24 00:00 Acute urinary tract infection [facility] 2022-07-30 00:00 [facility]-06 00:00 Constipation [facility] 2022-08-06 00:00 Pyelonephritis [facility] Procedures date description facility 2022-07-12 00:00 Anaerobic Culture [facility] 2022-07-13 00:00 Anaerobic Culture [facility] 2022-07-24 00:00 Anaerobic Culture [facility] 2022-07-30 00:00 Anaerobic Culture [facility] 2022-08-07 00:00 Anaerobic [facility] 2022-07-13 00:00 Computed tomography of head or brain wi [facility] contrast 2022-07-12 00:00 Gram Stain [facility] 2022-07-13 00:00 Gram Stain [facility] 2022-07-24 00:00 Gram Stain [facility] 2022-07-30 00:00 Gram Stain [facility] 2022-08-07 00:00 Gram Stain [facility] 2022-07-11 00:00 [facility]00 CT abdomen pelvis w [facility] 2022-07-13 00:00 Computed tomography of cervical spine w [facility] contrast 2022-07-13 00[facility] [facility] Results/Labs test date author facility value [...] nown) date) unknown) (unknown) (no (unknown) (unknown) [id number] (units (unkno wn) date) unknown) (unknown) (no [...] (unknown) (unknown) : 1975 (units (unknown) date) Acct:[id number] unknown) (unknown) (no (unknown) (unknown) Date of [...] nknown) date) unknown) (unknown) (no (unknown) (unknown) [facility] (units (unknown) date) [address] [place] [address] unknown) [place] [address] (unknown) (no (unknown) (unknown) Label Comments: (units [...] nown) date) unknown) (unknown) (no (unknown) (unknown) [id number] (units (unkno wn) date) unknown) (unknown) (no (unknown) (unknown) 1. No acute (units (un known) date) cardiopulmonary unknown) disease. (unknown) (no (unknown) (unknown) 07/11/22 (units (unkno wn) date) unknown) (unknown) (no (unknown) (unknown) [facility] [address] [place] [address] (units (unknown) date) unknown) (unknown) (no (unknown) (unknown) Accession Number: (units (unknown) date) [id number] unknown) (unknown) (no (unknown) (unknown) Age/Sex: 47 / M (units (unknown) date) Date of Service: unknown) (unknown) (no (unknown) (unknown) [place] (units ( unknown) date) [address] unknown) (unknown) (no (unknown) (unknown) Approved by: (units (u nknown) date) Hossein Almanzar unknown) Marcial on 07/11/2022 at 21:50 (unknown) (no (unknown) (unknown) Bones and chest (units (unknown) date) wall: No unknown) suspicious bony lesions. Overlying soft tissues (unknown) (no (unknown) (unknown) COMPARISON: (units (un known) date) [facility], [facility] CHEST 1 VIEW, 06/26/2022, 15:13. (unknown) (no (unknown) (unknown) : 1975 (units (unknown) date) Acct:[id number] unknown) (unknown) (no (unknown) (unknown) Dictated by: (units (u nknown) date) Hossein Almanzar unknown) Marcial on 07/11/2022 at 21:49 (unknown) (no (unknown) (unknown) FINDINGS: (units (unkn own) date) unknown) (unknown) (no (unknown) (unknown) IMPRESSION: (units (un known) date) unknown) (unknown) (no (unknown) (unknown) INDICATIONS: left (units (unknown) date) side chest pain unknown) (unknown) (no (unknown) (unknown) [facility] (units (unknown) date) unknown) (unknown) (no [...] nown) date) unknown) (unknown) (no (unknown) (unknown) [id number] (units (unkno wn) date) unknown) (unknown) (no [...] wn) date) unknown) (unknown) (no (unknown) (unknown) [address] [place] [address] (units (unknown) date) unknown) (unknown) (no (unknown) [...] (unknown) (unknown) Accession Number: (units (unknown) date) [id number] ?? unknown) (unknown) (no (unknown) (unknown) Acct:[id number] (units (unknown) date) unknown) (unknown) (no (unknown) [...] Date / Time (unknown) (no (unknown) (unknown) [place], [place] (units ( unknown) date) [address] unknown) (unknown) (no (unknown) (unknown) Approved by: [...] (unknown) COMPARISON:? (units (u nknown) date) [facility], [facility], XR CHEST 1 VIEW, 06/26/2022, 15:13. [...] (unknown) (unknown) : 1975 (units (unknown) date) Acct:[id number] unknown) (unknown) (no (unknown) (unknown) : 1975 [...] date) Signs: unknown) (unknown) (no (unknown) (unknown) [facility] (units (unknown) date) [address] unknown) [place] [address] (unknown) (no (unknown) (unknown) [facility] (units (unknown) date) unknown) (unknown) (no [...] Lymph # (Auto) (units (unknown) date) 1100 (1732-4449) unknown) /uL (unknown) (no (unknown) (unknown) Lymph [...] date) unknown) (unknown) (no (unknown) (unknown) MR#: [id number] (units (unknown) date) unknown) (unknown) (no (unknown) (unknown) Mediastinum:? (units ( unknown) date) Mediastinal unknown) contours appear normal.? Heart size is normal.? (unknown) (no (unknown) (unknown) Medical History (units (unknown) date) (Reviewed 10/31/21 unknown) @ 21:00 by GENIE Johnson) (unknown) (no (unknown) (unknown) Medication (units (unk nown) date) Instructions unknown) Recorded Confirmed (unknown) (no (unknown) (unknown) Rowan # (Auto) 300 (units (unknown) date) (0-900) /uL unknown) (unknown) (no (unknown) (unknown) Rowan % (Auto) 5.5 (units (unknown) date) (3-14) % unknown) (unknown) (no (unknown) (unknown) Mother Myocardial (units (unknown) date) infarct unknown) (unknown) (no (unknown) (unknown) Neurogenic pain (units (unknown) date) unknown) (unknown) (no (unknown) (unknown) Neut # (Auto) (units ( unknown) date) 4000 (8536-3591) unknown) /uL (unknown) (no (unknown) (unknown) Neut [...] (Reviewed 10/31/21 unknown) @ 21:00 by GENIE Johnsno) (unknown) (no (unknown) (unknown) Surgical changes (units [...] primary unknown) care provider please contact the [facility] (unknown) (no (unknown) (unknown) *Please continue [...] discussed your history (unknown) (no (unknown) (unknown) [id number] (units (unkno wn) date) unknown) (unknown) (no [...] stated above (unknown) (no (unknown) (unknown) [address] [place] [address] (units (unknown) date) unknown) (unknown) (no (unknown) [...] (unknown) (unknown) Accession Number: (units (unknown) date) [id number] ?? unknown) (unknown) (no (unknown) (unknown) Acct:[id number] (units (unknown) date) unknown) (unknown) (no (unknown) [...] (unknown) MELVINA Deng (units ( unknown) date) [address] unknown) (unknown) (no (unknown) (unknown) Anterior chest [...] (unknown) COMPARISON:? (units (u nknown) date) [facility], [facility], XR CHEST 1 VIEW, 06/26/2022, 15:13. [...] (unknown) (unknown) : 1975 (units (unknown) date) Acct:[id number] unknown) (unknown) (no (unknown) (unknown) : 1975 [...] Chest unknown) Pain (unknown) (no (unknown) (unknown) [facility] (units (unknown) date) [address] unknown) [place] [address] (unknown) (no (unknown) (unknown) [facility] (units (unknown) date) unknown) (unknown) (no [...] Lymph # (Auto) (units (unknown) date) 1100 (8676-2760) unknown) /uL (unknown) (no (unknown) (unknown) Lymph [...] date) unknown) (unknown) (no (unknown) (unknown) MR#: [id number] (units (unknown) date) unknown) (unknown) (no (unknown) [...] Instructions unknown) Recorded (unknown) (no (unknown) (unknown) Rowan # (Auto) 300 (units (unknown) date) (0-900) /uL unknown) (unknown) (no (unknown) (unknown) Rowan % (Auto) 5.5 (units (unknown) date) (3-14) % unknown) (unknown) (no (unknown) (unknown) Mother Myocardial (units (unknown) date) infarct unknown) (unknown) (no (unknown) (unknown) Multiple causes (units (unknown) date) of chest pain unknown) considered including MT, PE, pneumothorax, (unknown) (no (unknown) (unknown) NECK: [...] # (Auto) (units ( unknown) date) 4000 (9291-0107) unknown) /uL (unknown) (no (unknown) (unknown) Neut [...] (unknown) Resource line at (units (unknown) date) [phone]. They unknown) will ask some questions about [...] nown) date) unknown) (unknown) (no (unknown) (unknown) [id number] (units (unkno wn) date) unknown) (unknown) (no (unknown) (unknown) 1. No evidence (units (unknown) date) acute fracture or unknown) dislocation. (unknown) (no (unknown) (unknown) 1. Remote (units (unkn own) date) posterior unknown) laminectomy at T8 and T9. (unknown) (no (unknown) (unknown) 07/13/22 (units (unkno wn) date) unknown) (unknown) (no (unknown) (unknown) [address] [place] [address] (units (unknown) date) unknown) (unknown) (no (unknown) [...] (unknown) (unknown) Accession Number: (units (unknown) date) [id number] unknown) (unknown) (no (unknown) (unknown) Accession Number: (units (unknown) date) [id number] unknown) (unknown) (no (unknown) (unknown) Accession Number: (units (unknown) date) [id number] unknown) (unknown) (no (unknown) (unknown) Accession Number: (units (unknown) date) [id number] unknown) (unknown) (no (unknown) (unknown) Age/Sex: 47 / M (units (unknown) date) Date of Service: unknown) (unknown) (no (unknown) (unknown) [place], [place] (units ( unknown) date) [address] unknown) (unknown) (no (unknown) (unknown) Approved by: [...] (unknown) (unknown) COMPARISON: (units (un known) date) [facility], unknown) CT, CT THORACIC SPINE WO [...] (unknown) (unknown) : 1975 (units (unknown) date) Acct:[id number] unknown) (unknown) (no (unknown) (unknown) Dictated by: [...] level of C6. (unknown) (no (unknown) (unknown) [facility] (units (unknown) date) unknown) (unknown) (no [...] nown) date) unknown) (unknown) (no (unknown) (unknown) [id number] (units (unkno wn) date) unknown) (unknown) (no [...] (unknown) (unknown) : 1975 (units (unknown) date) Acct:[id number] unknown) (unknown) (no (unknown) (unknown) Date of [...] nknown) date) unknown) (unknown) (no (unknown) (unknown) [facility] (units (unknown) date) [address] [place] [address] unknown) [place] [address] (unknown) (no (unknown) (unknown) Label Comments: (units [...] nown) date) unknown) (unknown) (no (unknown) (unknown) [id number] (units (unkno wn) date) unknown) (unknown) (no [...] (unknown) (unknown) : 1975 (units (unknown) date) Acct:[id number] unknown) (unknown) (no (unknown) (unknown) Date of [...] date) Signs: unknown) (unknown) (no (unknown) (unknown) [facility] (units (unknown) date) [address] unknown) [place] [address] (unknown) (no (unknown) (unknown) Label Comments: (units [...] nown) date) unknown) (unknown) (no (unknown) (unknown) [id number] (units (unkno wn) date) unknown) (unknown) (no [...] (unknown) (unknown) : 1975 (units (unknown) date) Acct:[id number] unknown) (unknown) (no (unknown) (unknown) Date of [...] date) Signs: unknown) (unknown) (no (unknown) (unknown) [facility] (units (unknown) date) [address] unknown) [place] [address] (unknown) (no (unknown) (unknown) Label Comments: (units [...] primary unknown) care provider please contact the [facility] (unknown) (no (unknown) (unknown) *Please continue [...] wn) date) unknown) (unknown) (no (unknown) (unknown) [id number] (units (unkno wn) date) unknown) (unknown) (no [...] stated above (unknown) (no (unknown) (unknown) [address] [place] [address] (units (unknown) date) unknown) (unknown) (no (unknown) [...] (unknown) (unknown) Accession Number: (units (unknown) date) [id number] ?? unknown) (unknown) (no (unknown) (unknown) Accession Number: (units (unknown) date) [id number] ?? unknown) (unknown) (no (unknown) (unknown) Accession Number: (units (unknown) date) [id number] ?? unknown) (unknown) (no (unknown) (unknown) Accession Number: (units (unknown) date) [id number] ?? unknown) (unknown) (no (unknown) (unknown) Acct:[id number] (units (unknown) date) unknown) (unknown) (no (unknown) [...] (unknown) MELVINA Deng (units ( unknown) date) [address] unknown) (unknown) (no (unknown) (unknown) Approved by: [...] (unknown) (unknown) COMPARISON:? (units (u nknown) date) [facility], unknown) CT, CT THORACIC SPINE WO [...] (unknown) (unknown) : 1975 (units (unknown) date) Acct:[id number] unknown) (unknown) (no (unknown) (unknown) : 1975 [...] Neck Pain unknown) (unknown) (no (unknown) (unknown) [facility] (units (unknown) date) [address] [place] [address] unknown) [place] [address] (unknown) (no (unknown) (unknown) [facility] (units (unknown) date) unknown) (unknown) (no [...] Pain/Injury unknown) (unknown) (no (unknown) (unknown) MR#: [id number] (units (unknown) date) unknown) (unknown) (no (unknown) [...] (unknown) Resource line at (units (unknown) date) [phone]. They unknown) will ask some questions about [...] primary unknown) care provider please contact the [facility] (unknown) (no (unknown) (unknown) *Please continue [...] wn) date) unknown) (unknown) (no (unknown) (unknown) [id number] (units (unkno wn) date) unknown) (unknown) (no [...] stated above (unknown) (no (unknown) (unknown) [address] [place] [address] (units (unknown) date) unknown) (unknown) (no (unknown) [...] (unknown) (unknown) Accession Number: (units (unknown) date) [id number] ?? unknown) (unknown) (no (unknown) (unknown) Accession Number: (units (unknown) date) [id number] ?? unknown) (unknown) (no (unknown) (unknown) Accession Number: (units (unknown) date) [id number] ?? unknown) (unknown) (no (unknown) (unknown) Accession Number: (units (unknown) date) [id number] ?? unknown) (unknown) (no (unknown) (unknown) Acct:[id number] (units (unknown) date) unknown) (unknown) (no (unknown) [...] Date / Time (unknown) (no (unknown) (unknown) [place], [place] (units ( unknown) date) [address] unknown) (unknown) (no (unknown) (unknown) Approved by: [...] (unknown) (unknown) COMPARISON:? (units (u nknown) date) [facility], unknown) CT, CT THORACIC SPINE WO [...] (unknown) (unknown) : 1975 (units (unknown) date) Acct:[id number] unknown) (unknown) (no (unknown) (unknown) : 1975 [...] Neck Pain unknown) (unknown) (no (unknown) (unknown) [facility] (units (unknown) date) [address] unknown) [place] [address] (unknown) (no (unknown) (unknown) [facility] (units (unknown) date) unknown) (unknown) (no [...] date) unknown) (unknown) (no (unknown) (unknown) MR#: [id number] (units (unknown) date) unknown) (unknown) (no (unknown) [...] (unknown) Resource line at (units (unknown) date) [phone]. They unknown) will ask some questions about [...] nown) date) unknown) (unknown) (no (unknown) (unknown) [id number] (units (unkno wn) date) unknown) (unknown) (no (unknown) (unknown) 1. Persistent mild (units (unknown) date) bilateral unknown) hydroureteronephrosis with bilateral ureteral (unknown) (no (unknown) (unknown) 07/03/2020, 22:25. (units (unknown) date) unknown) (unknown) (no (unknown) (unknown) 07/23/22 (units (unkno wn) date) unknown) (unknown) (no (unknown) (unknown) [address] [place] [address] (units (unknown) date) unknown) (unknown) (no (unknown) [...] (unknown) (unknown) Accession Number: (units (unknown) date) [id number] unknown) (unknown) (no (unknown) (unknown) Adrenal Glands: No (units (unknown) date) adrenal nodules. unknown) (unknown) (no (unknown) (unknown) After the (units (unkn own) date) administration of IV unknown) contrast, axial sections were acquired from the (unknown) (no (unknown) (unknown) Age/Sex: 47 / M Date (uni ts (unknown) date) of Service: unknown) (unknown) (no (unknown) ([place] [address] (unit s (unknown) date) unknown) (unknown) (no [...] (unknown) (unknown) : 1975 (units (unknown) date) Acct:[id number] unknown) (unknown) (no (unknown) (unknown) Dictated by: [...] date) Excellent. unknown) (unknown) (no (unknown) (unknown) [facility] (units (unknown) date) unknown) (unknown) (no [...] wn) date) unknown) (unknown) (no (unknown) (unknown) [facility] (units ( unknown) date) [facility], CT, CT unknown) ABDOMEN PELVIS WITH CONTRAST, 01/11/2021, 13:06. (unknown) (no (unknown) (unknown) [place] (units (unkno wn) date) unknown) (unknown) (no (unknown) (unknown) Spleen: Normal in (units (unknown) date) size. unknown) (unknown) (no (unknown) (unknown) Stomach and Bowel: (units (unknown) date) Stomach, small bowel unknown) loops, and colon are normal in caliber (unknown) (no (unknown) (unknown) TECHNIQUE: (units (unk nown) date) unknown) (unknown) (no (unknown) (unknown) There is (units (unkno wn) date) unknown) (unknown) (no (unknown) (unknown) [facility], MR, (uni ts (unknown) date) MR ABDOMEN MRCP, unknown) 06/27/2022, 10:39. [facility] (unknown) (no (unknown) (unknown) Ventral Wall: No [...] nown) date) unknown) (unknown) (no (unknown) (unknown) [id number] (units (unkno wn) date) unknown) (unknown) (no [...] (unknown) (unknown) : 1975 (units (unknown) date) Acct:[id number] unknown) (unknown) (no (unknown) (unknown) Date of [...] date) Signs: unknown) (unknown) (no (unknown) (unknown) [facility] (units (unknown) date) [address] unknown) [place] [address] (unknown) (no (unknown) (unknown) Lab Data (units [...] # (Auto) (units (unknown) date) 900 L (6641-7587) unknown) /uL (unknown) (no (unknown) (unknown) Lymph [...] date) EMS unknown) (unknown) (no (unknown) (unknown) Rowan # (Auto) (units ( unknown) date) 900 (0-900) /uL unknown) (unknown) (no (unknown) (unknown) Rowan % (Auto) (units ( unknown) date) 11.0 [...] # (Auto) (units ( unknown) date) 6100 (7178-7906) unknown) /uL (unknown) (no (unknown) (unknown) Neut [...] wn) date) unknown) (unknown) (no (unknown) (unknown) [id number] (units (unkno wn) date) unknown) (unknown) (no [...] (unknown) (unknown) : 1975 (units (unknown) date) Acct:[id number] unknown) (unknown) (no (unknown) (unknown) Date of [...] date) Signs: unknown) (unknown) (no (unknown) (unknown) [facility] (units (unknown) date) [address] [place] [address] unknown) [place] [address] (unknown) (no (unknown) (unknown) Lab Data (units [...] (unknown) Lymph # (Auto) (units (unknown) date) (3276-5901) /uL unknown) (unknown) (no (unknown) (unknown) Lymph # (Auto) (units (unknown) date) 900 L (5193-5177) unknown) /uL (unknown) (no (unknown) (unknown) Lymph [...] date) EMS unknown) (unknown) (no (unknown) (unknown) Rowan # (Auto) (units ( unknown) date) (0-900) /uL unknown) (unknown) (no (unknown) (unknown) Rowan # (Auto) (units ( unknown) date) 900 (0-900) /uL unknown) (unknown) (no (unknown) (unknown) Rowan % (Auto) (units ( unknown) date) (3-14) % unknown) (unknown) (no (unknown) (unknown) Rowan % (Auto) (units ( unknown) date) 11.0 [...] Neut # (Auto) (units ( unknown) date) (4492-1910) /uL unknown) (unknown) (no (unknown) (unknown) Neut # (Auto) (units ( unknown) date) 6100 (1824-6655) unknown) /uL (unknown) (no (unknown) (unknown) Neut [...] (unknown) Ur Specific (units (un known) date) [facility] unknown) (1.000-1.035) (unknown) (no (unknown) (unknown) Ur Specific (units (un known) date) [facility] 1.010 unknown) (1.000-1.035) (unknown) (no (unknown) (unknown) [...] wn) date) unknown) (unknown) (no (unknown) (unknown) [id number] (units (unkno wn) date) unknown) (unknown) (no [...] (unknown) (unknown) : 1975 (units (unknown) date) Acct:[id number] unknown) (unknown) (no (unknown) (unknown) Date of [...] unknown) Infection (UTI) (unknown) (no (unknown) (unknown) [facility] (units (unknown) date) [address] [place] [address] unknown) [place] [address] (unknown) (no (unknown) (unknown) Lab Data (units [...] (unknown) Lymph # (Auto) (units (unknown) date) (6263-2841) /uL unknown) (unknown) (no (unknown) (unknown) Lymph # (Auto) 900 (units (unknown) date) L (0800-8101) /uL unknown) (unknown) (no (unknown) (unknown) Lymph [...] date) EMS unknown) (unknown) (no (unknown) (unknown) Rowan # (Auto) (units ( unknown) date) (0-900) /uL unknown) (unknown) (no (unknown) (unknown) Rowan # (Auto) 900 (units (unknown) date) (0-900) /uL unknown) (unknown) (no (unknown) (unknown) [place] % (Auto) (units ( unknown) date) (3-14) % unknown) (unknown) (no (unknown) (unknown) [place]an % (Auto) 11.0 (units (unknown) date) (3-14) [...] Neut # (Auto) (units ( unknown) date) (0035-9207) /uL unknown) (unknown) (no (unknown) (unknown) Neut # (Auto) 6100 (units (unknown) date) (8503-2816) /uL unknown) (unknown) (no (unknown) (unknown) Neut [...] (unknown) Ur Specific (units (un known) date) [facility] unknown) (1.000-1.035) (unknown) (no (unknown) (unknown) Ur Specific (units (un known) date) [facility] 1.010 unknown) (1.000-1.035) (unknown) (no (unknown) (unknown) [...] wn) date) unknown) (unknown) (no (unknown) (unknown) [id number] (units (unkno wn) date) unknown) (unknown) (no [...] date) unknown) (unknown) (no (unknown) (unknown) [address] [place] [address] (units (unknown) date) unknown) (unknown) (no (unknown) [...] wn) date) unknown) (unknown) (no (unknown) (unknown) ?[facility] (units ( unknown) date) [facility], CT, CT unknown) ABDOMEN PELVIS WITH [...] (unknown) (unknown) Accession Number: (units (unknown) date) [id number] ?? unknown) (unknown) (no (unknown) (unknown) Acct:[id number] (units (unknown) date) unknown) (unknown) (no (unknown) [...] Time (unknown) (no (unknown) (unknown) [place]INA Deng [address] (unit s (unknown) date) unknown) (unknown) (no [...] (unknown) (unknown) : 1975 (units (unknown) date) Acct:[id number] unknown) (unknown) (no (unknown) (unknown) : 1975 [...] unknow n) (UTI) (unknown) (no (unknown) (unknown) [facility] 1211 (uni ts (unknown) date) [address] [place] [address], unknown ) [place] [address] (unknown) (no (unknown) (unknown) [facility] (units (unknown) date) unknown) (unknown) (no [...] (unknown) Lymph # (Auto) (units (unknown) date) (1776-0432) /uL unknown) (unknown) (no (unknown) (unknown) Lymph # (Auto) 900 L (uni ts (unknown) date) (9507-7756) /uL unknown) (unknown) (no (unknown) (unknown) Lymph [...] date) unknown) (unknown) (no (unknown) (unknown) MR#: [id number] (units (unknown) date) unknown) (unknown) (no (unknown) [...] (unknown) date) unknown) (unknown) (no (unknown) (unknown) [place] # (Auto) (0-900) (un its (unknown) date) /uL unknown) (unknown) (no (unknown) (unknown) [place] # (Auto) 900 (units (unknown) date) (0-900) /uL unknown) (unknown) (no (unknown) (unknown) [place] % (Auto) (3-14) % (u nits (unknown) date) unknown) (unknown) (no (unknown) (unknown) [place] % (Auto) 11.0 (units (unknown) date) (3-14) [...] Neut # (Auto) (units ( unknown) date) (7992-2761) /uL unknown) (unknown) (no (unknown) (unknown) Neut # (Auto) 6100 (units (unknown) date) (6258-9008) /uL unknown) (unknown) (no (unknown) (unknown) Neut [...] wn) date) unknown) (unknown) (no (unknown) (unknown) [place] (units (unkno wn) date) unknown) (unknown) (no [...] unknown) (unknown) (no (unknown) (unknown) Ur Specific [place] (unit s (unknown) date) (1.000-1.035) unknown) (unknown) (no (unknown) (unknown) Ur Specific [place] (unit s (unknown) date) 1.010 (1.000-1.035) unknown) [...] (unknown) date) unknown) (unknown) (no (unknown) (unknown) [facility], MR, (uni ts (unknown) date) MR ABDOMEN MRC, unknown) 06/27/2022, 10:39.? 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 (units (unknown) date) unknown) (unknown) (no (unknown) [...] nown) date) unknown) (unknown) (no (unknown) (unknown) [id number] (units (unkno wn) date) unknown) (unknown) (no [...] (unknown) (unknown) : 1975 (units (unknown) date) Acct:[id number] unknown) (unknown) (no (unknown) (unknown) Date of Service: (units (unknown) date) 07/30/22 unknown) (unknown) (no (unknown) (unknown) Departure (units (unkn own) date) unknown) (unknown) (no (unknown) (unknown) Discharge Plan (units (unknown) date) unknown) (unknown) (no (unknown) (unknown) Discontinued (units (u nknown) date) Medications unknown) (unknown) (no (unknown) (unknown) ER Physician: (units ( unknown) date) Za Harrell unknown) 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 (unknown) (no (unknown) (unknown) Emergency Report (units [...] date) Signs: unknown) (unknown) (no (unknown) (unknown) [facility] (units (unknown) date) [address] unknown) [place] [address] (unknown) (no (unknown) (unknown) Label Comments: (units [...] date) unknown) (unknown) (no (unknown) (unknown) #: [id number] (units (un known) date) unknown) (unknown) (no [...] primary care unknown) provider please contact the [facility] (unknown) (no (unknown) (unknown) *Please continue [...] own) date) unknown) (unknown) (no (unknown) (unknown) [id number] (units (unkno wn) date) unknown) (unknown) (no [...] date) unknown) (unknown) (no (unknown) (unknown) [address] [place] [address], (units (unknown) date) [facility], [address] unknown) (unknown) (no (unknown) (unknown) 18:19 (units (unkno wn) date) unknown) (unknown) (no (unknown) (unknown) 300 mg PO BID (units ( unknown) date) unknown) (unknown) (no (unknown) (unknown) 50 mg PO BID (units (u nknown) date) unknown) (unknown) (no (unknown) (unknown) (units (unknown) date) Unit#: [id number] unknown) : 1975Location: ED (unknown) (no (unknown) [...] patient was unknown) prescribed but did not molded goods spot picker due to wrong pharmacy (unknown) (no [...] date) Impression: unknown) (unknown) (no (unknown) (unknown) [place] Count (units (u nknown) date) >100,000 CFU/ml unknown) (unknown) (no (unknown) (unknown) Consult to [facility] [place] (units (unknown) date) Newspaper Photographer unknown) Stat (unknown) (no (unknown) (unknown) Course (units (unkno wn) date) unknown) (unknown) (no (unknown) (unknown) Stephan Issa D.O. (units (unknown) date) unknown) (unknown) (no (unknown) (unknown) : 1975 (units (unknown) date) Acct:[id number] unknown) (unknown) (no (unknown) (unknown) Date of [...] unknown) Infection (UTI) (unknown) (no (unknown) (unknown) [facility] (units (unknown) date) [address] unknown) [place] [address] (unknown) (no (unknown) (unknown) [facility] (units (unknown) date) Laboratory CLIA ID unknown) [id number] (unknown) (no (unknown) (unknown) Ketorolac (units (unkn [...] date) CULTURE unknown) (unknown) (no (unknown) (unknown) [place]] (units (un known) date) unknown) (unknown) (no [...] (unknown) Resource line at (units (unknown) date) [phone]. They unknown) will ask some questions about [...] (unknown) SPEC #: (units (unkno wn) date) 22:[id number] JOVANI: unknown) 07/23/22 STATUS: COMP REQ (unknown) [...] patient has unknown) not been able to molded goods spot picker his antibiotics for (unknown) (no (unknown) [...] which he was prescribed but unable to molded goods spot picker as (unknown) (no (unknown) (unknown) start [...] date) unknown) (unknown) (no (unknown) (unknown) #: [id number] (units (un known) date) unknown) (unknown) (no [...] primary care unknown) provider please contact the [facility] (unknown) (no (unknown) (unknown) *Please continue [...] own) date) unknown) (unknown) (no (unknown) (unknown) [id number] (units (unkno wn) date) unknown) (unknown) (no [...] wn) date) unknown) (unknown) (no (unknown) (unknown) [address] [place] [address], (units (unknown) date) [facility], [address] unknown) (unknown) (no (unknown) (unknown) 18:19 (units (unkno wn) date) unknown) (unknown) (no (unknown) (unknown) 300 mg PO BID (units ( unknown) date) unknown) (unknown) (no (unknown) (unknown) 50 mg PO BID (units (u nknown) date) unknown) (unknown) (no (unknown) (unknown) (units (unknown) date) Unit#: [id number] unknown) : 1975Location: ED (unknown) (no (unknown) [...] patient was unknown) prescribed but did not molded goods spot picker due to wrong pharmacy (unknown) (no [...] date) Impression: unknown) (unknown) (no (unknown) (unknown) [place] Count (units (u nknown) date) >100,000 CFU/ml unknown) (unknown) (no (unknown) (unknown) Consult to EDUCATION INSTRUCTOR - (units (unknown) date) Newspaper Photographer unknown) Stat (unknown) (no (unknown) (unknown) Course (units (unkno wn) date) unknown) (unknown) (no (unknown) (unknown) Stephan Issa D.O. (units (unknown) date) unknown) (unknown) (no (unknown) (unknown) : 1975 (units (unknown) date) Acct:[id number] unknown) (unknown) (no (unknown) (unknown) Date of [...] unknown) Infection (UTI) (unknown) (no (unknown) (unknown) [facility] (units (unknown) date) [address] unknown) [place] [address] (unknown) (no (unknown) (unknown) [facility] (units (unknown) date) Laboratory CLIA ID unknown) [id number] (unknown) (no (unknown) (unknown) Ketorolac (units (unkn [...] 07/30/22 unknown) @ 19:09 by Za Harrell [facility]) (unknown) (no (unknown) (unknown) Medical decision (units [...] date) CULTURE unknown) (unknown) (no (unknown) (unknown) [place]] (units (un known) date) unknown) (unknown) (no [...] (unknown) Resource line at (units (unknown) date) [phone]. They unknown) will ask some questions about [...] (unknown) SPEC #: (units (unkno wn) date) 22:[id number] JOVANI: unknown) 07/23/22 STATUS: COMP REQ (unknown) [...] patient has unknown) not been able to molded goods spot picker his antibiotics for (unknown) (no (unknown) [...] date) be picked up unknown) tomorrow from [facility] in [place], patient is (unknown) (no (unknown) (unknown) metoprolol [...] which he was prescribed but unable to molded goods spot picker as (unknown) (no (unknown) (unknown) start [...] date) unknown) (unknown) (no (unknown) (unknown) #: [id number] (units (un known) date) unknown) (unknown) (no [...] primary care unknown) provider please contact the [facility] (unknown) (no (unknown) (unknown) *Please continue [...] own) date) unknown) (unknown) (no (unknown) (unknown) [id number] (units (unkno wn) date) unknown) (unknown) (no [...] date) unknown) (unknown) (no (unknown) (unknown) [address] [place] [address], (units (unknown) date) [place], [address] unknown) (unknown) (no (unknown) (unknown) 18:19 (units [...] (no (unknown) (unknown) (units (unknown) date) Unit#: [id number] unknown) : 1975Location: ED (unknown) (no (unknown) [...] patient was unknown) prescribed but did not molded goods spot picker due to wrong pharmacy (unknown) (no [...] date) Impression: unknown) (unknown) (no (unknown) (unknown) [place] Count (units (u nknown) date) >100,000 CFU/ml unknown) (unknown) (no (unknown) (unknown) Consult to EDUCATION INSTRUCTOR - (units (unknown) date) Newspaper Photographer unknown) Stat (unknown) (no (unknown) (unknown) Course (units (unkno wn) date) unknown) (unknown) (no (unknown) (unknown) Stephan Issa D.O. (units (unknown) date) unknown) (unknown) (no (unknown) (unknown) : 1975 (units (unknown) date) Acct:[id number] unknown) (unknown) (no (unknown) (unknown) Date of [...] (units ( unknown) date) Za Harrell unknown) 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 (unknown) (no (unknown) (unknown) Emergency Report (units (unknown) date) unknown) (unknown) (no (unknown) (unknown) Exam Narrative: (units (unknown) date) unknown) (unknown) (no (unknown) (unknown) Exam (units (unkno wn) date) unknown) (unknown) (no (unknown) (unknown) FAX TO: (units (unkno wn) date) unknown) (unknown) (no (unknown) (unknown) Family History (units (unknown) date) (Reviewed 07/30/22 unknown) @ 19:09 by Za Harrell [facility]) (unknown) (no (unknown) (unknown) Father CVA (units [...] Male, Urinary Tract (unknown) (no (unknown) (unknown) [facility] (units (unknown) date) [address] unknown) [place] [address] (unknown) (no (unknown) (unknown) [facility] (units (unknown) date) Laboratory CLIA ID unknown) [id number] (unknown) (no (unknown) (unknown) Ketorolac (units (unkn [...] 07/30/22 unknown) @ 19:09 by Za Harrell [facility]) (unknown) (no (unknown) (unknown) Medical decision (units [...] date) CULTURE unknown) (unknown) (no (unknown) (unknown) [place]] (units (un known) date) unknown) (unknown) (no [...] (unknown) Resource line at (units (unknown) date) [phone]. They unknown) will ask some questions about [...] (unknown) SPEC #: (units (unkno wn) date) 22:[id number] JOVANI: unknown) 07/23/22 STATUS: COMP REQ (unknown) [...] 07/30/22 unknown) @ 19:09 by Za Harrell [facility]) (unknown) (no (unknown) (unknown) Take 1 capsule [...] patient has unknown) not been able to molded goods spot picker his antibiotics for (unknown) (no (unknown) [...] date) [facility] [place], patient is (unknown) (no (unknown) (unknown) metoprolol [...] which he was prescribed but unable to molded goods spot picker as (unknown) (no (unknown) (unknown) start [...] date) unknown) (unknown) (no (unknown) (unknown) #: [id number] (units (un known) date) unknown) (unknown) (no [...] primary care unknown) provider please contact the [facility] (unknown) (no (unknown) (unknown) *Please continue [...] own) date) unknown) (unknown) (no (unknown) (unknown) [id number] (units (unkno wn) date) unknown) (unknown) (no [...] date) unknown) (unknown) (no (unknown) (unknown) [address] [place] [address], (units (unknown) date) [place], [address] unknown) (unknown) (no (unknown) (unknown) 18:19 07/30/22 [...] (no (unknown) (unknown) (units (unknown) date) Unit#: [id number] unknown) : 1975Location: ED (unknown) (no (unknown) [...] patient was unknown) prescribed but did not molded goods spot picker due to wrong pharmacy (unknown) (no [...] date) Impression: unknown) (unknown) (no (unknown) (unknown) [place] Count (units (u nknown) date) >100,000 CFU/ml unknown) (unknown) (no (unknown) (unknown) Consult to [facility] - (units (unknown) date) Newspaper Photographer unknown) Stat (unknown) (no (unknown) (unknown) Course (units (unkno wn) date) unknown) (unknown) (no (unknown) (unknown) Stephan Issa D.O. (units (unknown) date) unknown) (unknown) (no (unknown) (unknown) : 1975 (units (unknown) date) Acct:[id number] unknown) (unknown) (no (unknown) (unknown) Date of [...] Male, Urinary Tract (unknown) (no (unknown) (unknown) [facility] (units (unknown) date) [address] [place] [address] unknown) [place] [address] (unknown) (no (unknown) (unknown) [facility] (units (unknown) date) Laboratory CLIA ID unknown) [id number] (unknown) (no (unknown) (unknown) Ketorolac (units (unkn [...] date) CULTURE unknown) (unknown) (no (unknown) (unknown) [place]] (units (un known) date) unknown) (unknown) (no [...] (unknown) Resource line at (units (unknown) date) [phone]. They unknown) will ask some questions about [...] (unknown) SPEC #: (units (unkno wn) date) 22:[id number] JOVANI: unknown) 07/23/22 STATUS: COMP REQ (unknown) [...] 07/30/22 unknown) @ 19:09 by Za Harrell [facility]) (unknown) (no (unknown) (unknown) Source: patient (units [...] 07/30/22 unknown) @ 19:09 by Za Harrell [facility]) (unknown) (no (unknown) (unknown) Take 1 capsule [...] patient has unknown) not been able to molded goods spot picker his antibiotics for (unknown) (no (unknown) [...] date) be picked up unknown) tomorrow from [facility] in [place], patient is (unknown) (no (unknown) (unknown) metoprolol [...] which he was prescribed but unable to molded goods spot picker as (unknown) (no (unknown) (unknown) start [...] date) unknown) (unknown) (no (unknown) (unknown) #: [id number] (units (un known) date) unknown) (unknown) (no [...] primary care unknown) provider please contact the [facility] (unknown) (no (unknown) (unknown) *Please continue [...] own) date) unknown) (unknown) (no (unknown) (unknown) [id number] (units (unkno wn) date) unknown) (unknown) (no [...] date) unknown) (unknown) (no (unknown) (unknown) [address] [place] [address], (units (unknown) date) [place], [address] unknown) (unknown) (no (unknown) (unknown) 18:19 07/30/22 [...] (no (unknown) (unknown) (units (unknown) date) Unit#: [id number] unknown) : 1975Location: ED (unknown) (no (unknown) [...] patient was unknown) prescribed but did not molded goods spot picker due to wrong pharmacy (unknown) (no [...] Called To: (units (unk nown) date) KSCHERER RADIOLOGIST unknown) (unknown) (no (unknown) (unknown) Cardiovascular: (units (unknown) date) Tachycardic rate unknown) and regular rhythm, no peripheral edema, warm (unknown) (no (unknown) (unknown) Chief complaint: (units (unknown) date) Urogenital-Male unknown) (unknown) (no (unknown) (unknown) Clinical (units (unkno wn) date) Impression: unknown) (unknown) (no (unknown) (unknown) [place] Count (units (u nknown) date) >100,000 CFU/ml unknown) (unknown) (no (unknown) (unknown) Cosign (units (unkno wn) date) unknown) (unknown) (no (unknown) (unknown) Course (units (unkno wn) date) unknown) (unknown) (no (unknown) (unknown) Stephan Issa D.O. (units (unknown) date) unknown) (unknown) (no (unknown) (unknown) : 1975 (units (unknown) date) Acct:[id number] unknown) (unknown) (no (unknown) (unknown) Date of [...] date) (Reviewed 07/30/22 unknown) @ 19:09 by GNEIE Da Silva) (unknown) (no (unknown) (unknown) Father [...] Male, Urinary Tract (unknown) (no (unknown) (unknown) [facility] (units (unknown) date) [address] unknown) [place] [address] (unknown) (no (unknown) (unknown) [facility] (units (unknown) date) Laboratory CLIA ID unknown) [id number] (unknown) (no (unknown) (unknown) Ketorolac (units (unkn [...] 07/30/22 unknown) @ 19:09 by Za Harrell [facility]) (unknown) (no (unknown) (unknown) Medical decision (units [...] date) CULTURE unknown) (unknown) (no (unknown) (unknown) [place]] (units (un known) date) unknown) (unknown) (no [...] (unknown) Resource line at (units (unknown) date) [phone]. They unknown) will ask some questions about [...] (unknown) SPEC #: (units (unkno wn) date) 22:[id number] JOVANI: unknown) 07/23/22 STATUS: COMP REQ (unknown) [...] patient has unknown) not been able to molded goods spot picker his antibiotics for (unknown) (no (unknown) [...] date) be picked up unknown) tomorrow from [facility] in [place], patient is (unknown) (no (unknown) (unknown) metoprolol [...] which he was prescribed but unable to molded goods spot picker as (unknown) (no (unknown) (unknown) start [...] nown) date) unknown) (unknown) (no (unknown) (unknown) [id number] (units (unkno wn) date) unknown) (unknown) (no (unknown) (unknown) 1. Enhancement of (units (unknown) date) the left kidney unknown) appears somewhat heterogeneous. This could (unknown) (no (unknown) (unknown) 08/06/22 (units (unkno wn) date) unknown) (unknown) (no (unknown) (unknown) [address] [place] [address] (units (unknown) date) unknown) (unknown) (no (unknown) [...] (unknown) (unknown) Accession Number: (units (unknown) date) [id number] unknown) (unknown) (no (unknown) (unknown) Adrenal Glands: (units (unknown) date) No nodule. unknown) (unknown) (no (unknown) (unknown) After the (units (unkn own) date) administration of unknown) oral and IV contrast, axial sections were acquired (unknown) (no (unknown) (unknown) Age/Sex: 47 / M (units (unknown) date) Date of Service: unknown) (unknown) (no (unknown) (unknown) [place], [place] (units ( unknown) date) [address] unknown) (unknown) (no (unknown) (unknown) Approved by: [...] (unknown) COMPARISON: (units (un known) date) [facility] unknown) [facility], MR, MR ABDOMEN MRCP, 06/27/2022, 10:39. (unknown) (no (unknown) (unknown) CT Scan Report (units (unknown) date) unknown) (unknown) (no (unknown) (unknown) CT, CT ABDOMEN (units (unknown) date) PELVIS W CON, unknown) 07/23/2022, 23:14. (unknown) (no (unknown) (unknown) Comment: Findings (units (unknown) date) were discussed unknown) with Darci Batlazar PA-C at time of dictation. (unknown) (no (unknown) (unknown) : 1975 (units (unknown) date) Acct:[id number] unknown) (unknown) (no (unknown) (unknown) Dictated by: [...] date) Excellent. unknown) (unknown) (no (unknown) (unknown) [facility] (units (unknown) date) unknown) (unknown) (no [...] wn) date) unknown) (unknown) (no (unknown) (unknown) [place] (units (unkno wn) date) unknown) (unknown) (no [...] the pancreatic head, (unknown) (no (unknown) (unknown) [facility], (units (unknown) date) CT, CT ABDOMEN [...] (unknown) date) unknown) (unknown) (no (unknown) (unknown) [id number] (units (unkno wn) date) unknown) (unknown) (no [...] (unknown) (unknown) : 1975 (units (unknown) date) Acct:[id number] unknown) (unknown) (no (unknown) (unknown) Date of [...] 07/30/22 unknown) @ 19:09 by Za Harrell [facility]) (unknown) (no (unknown) (unknown) Father CVA (units [...] date) Signs: unknown) (unknown) (no (unknown) (unknown) [facility] (units (unknown) date) [address] [place] [address] Street unknown) [place] [address] (unknown) (no (unknown) (unknown) Ketorolac (units (unkn [...] (unknown) Lymph # (Auto) (units (unknown) date) (4601-6136) /uL unknown) (unknown) (no (unknown) (unknown) Lymph # (Auto) (units (unknown) date) 1200 (1520-5555) unknown) /uL (unknown) (no (unknown) (unknown) Lymph [...] 07/30/22 unknown) @ 19:09 by Za Harrell [facility]) (unknown) (no (unknown) (unknown) Medication (units (unk nown) date) Instructions unknown) Recorded Confirmed (unknown) (no (unknown) (unknown) Medication (units (unk nown) date) Instructions unknown) Recorded (unknown) (no (unknown) (unknown) [place] # (Auto) (units ( unknown) date) (0-900) /uL unknown) (unknown) (no (unknown) (unknown) [place] # (Auto) 400 (units (unknown) date) (0-900) /uL unknown) (unknown) (no (unknown) (unknown) [place] % (Auto) (units ( unknown) date) (3-14) % unknown) (unknown) (no (unknown) (unknown) [place] % (Auto) 4.7 (units (unknown) date) (3-14) % unknown) (unknown) (no (unknown) (unknown) Mother Myocardial (units (unknown) date) infarct unknown) (unknown) (no (unknown) (unknown) Neurogenic pain (units (unknown) date) unknown) (unknown) (no (unknown) (unknown) Neut # (Auto) (units ( unknown) date) (2827-0548) /uL unknown) (unknown) (no (unknown) (unknown) Neut # (Auto) 7400 (units (unknown) date) H (8066-7660) /uL unknown) (unknown) (no (unknown) (unknown) Neut [...] 07/30/22 unknown) @ 19:09 by Za Harrell [facility]) (unknown) (no (unknown) (unknown) Sodium (137-145) (units [...] (unknown) date) unknown) (unknown) (no (unknown) (unknown) [id number] (units (unkno wn) date) unknown) (unknown) (no [...] (unknown) (unknown) : 1975 (units (unknown) date) Acct:[id number] unknown) (unknown) (no (unknown) (unknown) Date of [...] date) Signs: unknown) (unknown) (no (unknown) (unknown) Integumentary/[place] (units (unknown) date) sts unknown) (unknown) (no (unknown) (unknown) [facility] (units (unknown) date) [address] unknown) [place] [address] (unknown) (no (unknown) (unknown) Ketorolac (units (unkn [...] (unknown) Lymph # (Auto) (units (unknown) date) (3418-9527) /uL unknown) (unknown) (no (unknown) (unknown) Lymph # (Auto) (units (unknown) date) 1200 (0268-4527) unknown) /uL (unknown) (no (unknown) (unknown) Lymph [...] Instructions unknown) Recorded (unknown) (no (unknown) (unknown) [place] # (Auto) (units ( unknown) date) (0-900) /uL unknown) (unknown) (no (unknown) (unknown) [place] # (Auto) 400 (units (unknown) date) (0-900) /uL unknown) (unknown) (no (unknown) (unknown) [place] % (Auto) (units ( unknown) date) (3-14) % unknown) (unknown) (no (unknown) (unknown) [place] % (Auto) 4.7 (units (unknown) date) (3-14) [...] Neut # (Auto) (units ( unknown) date) (9085-4442) /uL unknown) (unknown) (no (unknown) (unknown) Neut # (Auto) 7400 (units (unknown) date) H (0231-5304) /uL unknown) (unknown) (no (unknown) (unknown) Neut [...] (unknown) date) unknown) (unknown) (no (unknown) (unknown) [id number] (units (unkno wn) date) unknown) (unknown) (no [...] (unknown) COMPARISON:? (units (u nknown) date) [facility] unknown) [facility], MR, MR ABDOMEN MRCP, 06/27/2022, 10:39.? [...] (unknown) (unknown) : 1975 (units (unknown) date) Acct:[id number] unknown) (unknown) (no (unknown) (unknown) Date of [...] date) sts unknown) (unknown) (no (unknown) (unknown) [facility] (units (unknown) date) [address] unknown) [place] [address] (unknown) (no (unknown) (unknown) Ketorolac (units (unkn [...] (unknown) Lymph # (Auto) (units (unknown) date) (2093-1992) /uL unknown) (unknown) (no (unknown) (unknown) Lymph # (Auto) (units (unknown) date) 1200 (0137-7437) unknown) /uL (unknown) (no (unknown) (unknown) Lymph [...] the gluteal cleft (unknown) (no (unknown) (unknown) [place] # (Auto) (units ( unknown) date) (0-900) /uL unknown) (unknown) (no (unknown) (unknown) [place] # (Auto) 400 (units (unknown) date) (0-900) /uL unknown) (unknown) (no (unknown) (unknown) [place] % (Auto) (units ( unknown) date) (3-14) % unknown) (unknown) (no (unknown) (unknown) [place] % (Auto) 4.7 (units (unknown) date) (3-14) [...] Neut # (Auto) (units ( unknown) date) (2649-0716) /uL unknown) (unknown) (no (unknown) (unknown) Neut # (Auto) 7400 (units (unknown) date) H (2155-3077) /uL unknown) (unknown) (no (unknown) (unknown) Neut [...] nown) date) unknown) (unknown) (no (unknown) (unknown) [place] (units (unkno wn) date) unknown) (unknown) (no [...] (unknown) (unknown) Urine Specific (units (unknown) date) [place] 1.025 unknown) (unknown) (no (unknown) (unknown) [facility], (units (unknown) date) CT, CT ABDOMEN [...] (unknown) date) unknown) (unknown) (no (unknown) (unknown) [id number] (units (unkno wn) date) unknown) (unknown) (no [...] (unknown) (unknown) COMPARISON:? (units (u nknown) date) [place] unknown) [facility], MR, MR ABDOMEN MRC, 06/27/2022, 10:39.? [...] (unknown) (unknown) : 1975 (units (unknown) date) Acct:[id number] unknown) (unknown) (no (unknown) (unknown) Date of [...] DI for Constipation (unknown) (no (unknown) (unknown) Integumentary/[place] (units (unknown) date) sts unknown) (unknown) (no (unknown) (unknown) [facility] (units (unknown) date) [address] unknown) [place] [address] (unknown) (no (unknown) (unknown) Ketorolac (units (unkn [...] (unknown) Lymph # (Auto) (units (unknown) date) ([id number]) /uL unknown) (unknown) (no (unknown) (unknown) Lymph # (Auto) (units (unknown) date) 1200 ([id number]) unknown) /uL (unknown) (no (unknown) (unknown) Lymph [...] the gluteal cleft (unknown) (no (unknown) (unknown) [place] # (Auto) (units ( unknown) date) (0-900) /uL unknown) (unknown) (no (unknown) (unknown) [place] # (Auto) 400 (units (unknown) date) (0-900) /uL unknown) (unknown) (no (unknown) (unknown) [place] % (Auto) (units ( unknown) date) (3-14) % unknown) (unknown) (no (unknown) (unknown) [place] % (Auto) 4.7 (units (unknown) date) (3-14) [...] Neut # (Auto) (units ( unknown) date) (1840-2023) /uL unknown) (unknown) (no (unknown) (unknown) Neut # (Auto) 7400 (units (unknown) date) H (6031-2687) /uL unknown) (unknown) (no (unknown) (unknown) Neut [...] Patient: Eleazar (units ( unknown) date) Yann Joens MR#: [id number] unknown) (unknown) (no (unknown) (unknown) [...] nown) date) unknown) (unknown) (no (unknown) (unknown) [place] (units (unkno wn) date) unknown) (unknown) (no [...] (unknown) (unknown) Urine Specific (units (unknown) date) [facility] 1.025 unknown) (unknown) (no (unknown) (unknown) [facility], (units (unknown) date) CT, CT ABDOMEN [...] facility 2022-07-11 00:00 Current some day smoker [facility] 2022-07-13 00:00 Current some day smoker [facility] 2022-07-23 00:00 Ex-smoker (finding) [facility] 2022-07-30 00:00 Ex-smoker (finding) [facility] 2022-08-06 00:00 Ex-smoker (finding) [facility] Vital Signs date measurement value units [...]
== END 2022-08-15 17:36 | disposition home or self-care (01) ==
LOC: EDUNIT# → ED 17:09
DX: M54.50 Low back pain, unspecified (principal); G89.29 Other chronic pain; G82.20 Paraplegia, unspecified
CPT/HCPCS: 96372; 99282; 99283

== ENCOUNTER 2022-08-15 17:33 | Outpatient (CLI) | payer MEDICARE, MEDICAID | END 2022-08-15 17:34 | disposition home or self-care (01) | LOC: EMS 17:33 | PROVIDERS: ATTEND Emergency Medicine | DX: G82.20 Paraplegia, unspecified (principal) | CPT/HCPCS: A0425; A0428 ==

== ENCOUNTER 2022-08-16 19:17 | Outpatient (CLI) | payer MEDICARE, MEDICAID | END 2022-08-16 19:18 | disposition critical access hospital (66) | LOC: EMS 19:17 | DX: R07.89 Other chest pain (principal); R11.10 Vomiting, unspecified; G82.20 Paraplegia, unspecified; Z74.8 Other problems related to care provider dependency; Z59.89 Other problems related to housing and economic circumstances; Z63.8 Other specified problems related to primary support group | CPT/HCPCS: A0425; A0429 ==

== ENCOUNTER 2022-08-16 19:39 | Emergency (ER) | payer MEDICARE, MEDICAID ==
--- OUTSIDE RECORDS SUMMARY | 2022-08-16 20:27 | EXTERNAL MEDICAL SUMMARY RPT | Continuity of Care Document ---
:1975 Author Organization [place] Address [address] [place] [address] Phone Care Team Providers Name Role Phone Unavailable Unavailable Unavailable Danika García Unavailable Unavailable Allergies and Intolerances date description facility type (no date) gabapentin [facility] (unknown) (no date) morphine [facility] (unknown) Encounters No information. Functional Status No information. Immunizations No information. Medications date description facility 2022-07-30 00:00 Oxycodone-Acetaminophen [facility] 2022-07-30 00:00 Phenazopyridine [facility] 2022-08-06 00:00 Doxycycline Hyclate [facility] 2022-07-11 00:00 Lidocaine [facility] 2022-07-24 00:00 Sulfamethoxazole-Trimethoprim [facility] 2022-07-30 00:00 Sulfamethoxazole-Trimethoprim [facility] 2022-07-30 00:00 Ketorolac [facility] Problems date description facility 2022-07-11 00:00 Anterior chest wall pain [facility] 2022-07-13 00:00 Strain of neck muscle [facility] 2022-07-13 00:00 Strain of thoracic region [facility] 2022-07-24 00:00 Acute urinary tract infection [facility] 2022-07-30 00:00 Methicillin resistant Staphylococcus [facility] culture positive 2022-08-06 00:00 Constipation [facility] 2022-08-06 00:00 Pyelonephritis [facility] Procedures date description facility 2022-07-12 00:00 Anaerobic Culture [facility] 2022-07-13 00:00 Anaerobic Culture [facility] 2022-07-24 00:00 Anaerobic Culture [facility] 2022-07-30 00:00 Anaerobic Culture [facility] 2022-08-07 00:00 Anaerobic [facility] 2022-07-13 00:00 Computed tomography of head or brain wi [facility] contrast 2022-07-12 00:00 Gram Stain [facility] 2022-07-13 00:00 Gram Stain [facility] 2022-07-24 00:00 Gram Stain [facility] 2022-07-30 00:00 Gram Stain [facility] 2022-08-07 00:00 Gram Stain [facility] 2022-07-11 00:00 [facility] 2022-[facility]:00 CT abdomen pelvis w [facility] 2022-07-13 00:00 Computed tomography of cervical spine w [facility] contrast 2022-07-13 00:00 [facility]:00 CT lumbar spine [facility] Results/Labs test date author facility value unit [...] nown) date) unknown) (unknown) (no (unknown) (unknown) [id number] (units (unkno wn) date) unknown) (unknown) (no [...] (unknown) (unknown) : 1975 (units (unknown) date) Acct:[id number] unknown) (unknown) (no (unknown) (unknown) Date of [...] nknown) date) unknown) (unknown) (no (unknown) (unknown) [facility] (units (unknown) date) [address] [place] [address] unknown) [place] [address] (unknown) (no (unknown) (unknown) Label Comments: (units [...] nown) date) unknown) (unknown) (no (unknown) (unknown) [id number] (units (unkno wn) date) unknown) (unknown) (no (unknown) (unknown) 1. No acute (units (un known) date) cardiopulmonary unknown) disease. (unknown) (no (unknown) (unknown) 07/11/22 (units (unkno wn) date) unknown) (unknown) (no (unknown) (unknown) [facility] [address] [place] [address] (units (unknown) date) unknown) (unknown) (no (unknown) (unknown) Accession Number: (units (unknown) date) [id number] unknown) (unknown) (no (unknown) (unknown) Age/Sex: 47 / M (units (unknown) date) Date of Service: unknown) (unknown) (no (unknown) (unknown) [place] (units ( unknown) date) [address] unknown) (unknown) (no (unknown) (unknown) Approved by: (units (u nknown) date) Hossein Almanzar unknown) Marcial on 07/11/2022 at 21:50 (unknown) (no (unknown) (unknown) Bones and chest (units (unknown) date) wall: No unknown) suspicious bony lesions. Overlying soft tissues (unknown) (no (unknown) (unknown) COM[facility] ([facility] (un known) date[facility], 06/26/2022, 15:13. (unknown) (no (unknown) (unknown) : 1975 (units (unknown) date) Acct:[id number] unknown) (unknown) (no (unknown) (unknown) Dictated by: (units (u nknown) date) Hossein Almanzar unknown) Marcial on 07/11/2022 at 21:49 (unknown) (no (unknown) (unknown) FINDINGS: (units (unkn own) date) unknown) (unknown) (no (unknown) (unknown) IMPRESSION: (units (un known) date) unknown) (unknown) (no (unknown) (unknown) INDICATIONS: left (units (unknown) date) side chest pain unknown) (unknown) (no (unknown) (unknown) [facility] (units (unknown) date) unknown) (unknown) (no (unknown) [...] nown) date) unknown) (unknown) (no (unknown) (unknown) [id number] (units (unkno wn) date) unknown) (unknown) (no [...] wn) date) unknown) (unknown) (no (unknown) (unknown) [address] [place] [address] (units (unknown) date) unknown) (unknown) (no (unknown) [...] (unknown) (unknown) Accession Number: (units (unknown) date) [id number] ?? unknown) (unknown) (no (unknown) (unknown) Acct:[id number] (units (unknown) date) unknown) (unknown) (no (unknown) [...] Date / Time (unknown) (no (unknown) (unknown) [place], [place] (units ( unknown) date) [address] unknown) (unknown) (no (unknown) (unknown) Approved by: [...] (unknown) (unknown) COMPARISON:? (units (u nknown) date[facility], 06/26/2022, [...] (unknown) (unknown) : 1975 (units (unknown) date) Acct:[id number] unknown) (unknown) (no (unknown) (unknown) : 1975 [...] date) Signs: unknown) (unknown) (no (unknown) (unknown) [facility] (units (unknown) date) [address] unknown) [place] [address] (unknown) (no (unknown) (unknown) [facility] (units (unknown) date) unknown) (unknown) (no (unknown) [...] Lymph # (Auto) (units (unknown) date) 1100 (3539-1265) unknown) /uL (unknown) (no (unknown) (unknown) Lymph [...] date) unknown) (unknown) (no (unknown) (unknown) MR#: [id number] (units (unknown) date) unknown) (unknown) (no (unknown) (unknown) Mediastinum:? (units ( unknown) date) Mediastinal unknown) contours appear normal.? Heart size is normal.? (unknown) (no (unknown) (unknown) Medical History (units (unknown) date) (Reviewed 10/31/21 unknown) @ 21:00 by GENIE Johnson) (unknown) (no (unknown) (unknown) Medication (units (unk nown) date) Instructions unknown) Recorded Confirmed (unknown) (no (unknown) (unknown) Brown # (Auto) 300 (units (unknown) date) (0-900) /uL unknown) (unknown) (no (unknown) (unknown) Brown % (Auto) 5.5 (units (unknown) date) (3-14) % unknown) (unknown) (no (unknown) (unknown) Mother Myocardial (units (unknown) date) infarct unknown) (unknown) (no (unknown) (unknown) Neurogenic pain (units (unknown) date) unknown) (unknown) (no (unknown) (unknown) Neut # (Auto) (units ( unknown) date) 4000 (7043-8527) unknown) /uL (unknown) (no (unknown) (unknown) Neut [...] primary unknown) care provider please contact the [facility] (unknown) (no (unknown) (unknown) *Please continue (units [...] discussed your history (unknown) (no (unknown) (unknown) [id number] (units (unkno wn) date) unknown) (unknown) (no [...] stated above (unknown) (no (unknown) (unknown) [address] [place] [address] (units (unknown) date) unknown) (unknown) (no (unknown) [...] (unknown) (unknown) Accession Number: (units (unknown) date) [id number] ?? unknown) (unknown) (no (unknown) (unknown) Acct:[id number] (units (unknown) date) unknown) (unknown) (no (unknown) [...] (unknown) MELVINA Deng (units ( unknown) date) [address] unknown) (unknown) (no (unknown) (unknown) Anterior chest [...] (unknown) (unknown) COMPARISON:? (units (u nknown) date) [facility], 06/26/2022, [...] (unknown) (unknown) : 1975 (units (unknown) date) Acct:[id number] unknown) (unknown) (no (unknown) (unknown) : 1975 [...] Chest unknown) Pain (unknown) (no (unknown) (unknown) [facility] (units (unknown) date) [address] unknown) [place] [address] (unknown) (no (unknown) (unknown) [facility] (units (unknown) date) unknown) (unknown) (no (unknown) [...] Lymph # (Auto) (units (unknown) date) 1100 (5659-3528) unknown) /uL (unknown) (no (unknown) (unknown) Lymph [...] date) unknown) (unknown) (no (unknown) (unknown) MR#: [id number] (units (unknown) date) unknown) (unknown) (no (unknown) [...] Instructions unknown) Recorded (unknown) (no (unknown) (unknown) Brown # (Auto) 300 (units (unknown) date) (0-900) /uL unknown) (unknown) (no (unknown) (unknown) Brown % (Auto) 5.5 (units (unknown) date) (3-14) % unknown) (unknown) (no (unknown) (unknown) Mother Myocardial (units (unknown) date) infarct unknown) (unknown) (no (unknown) (unknown) Multiple causes (units (unknown) date) of chest pain unknown) considered including GA, PE, pneumothorax, (unknown) (no (unknown) (unknown) NECK: [...] # (Auto) (units ( unknown) date) 4000 (6722-5352) unknown) /uL (unknown) (no (unknown) (unknown) Neut [...] (unknown) Resource line at (units (unknown) date) [phone]. They unknown) will ask some questions about [...] nown) date) unknown) (unknown) (no (unknown) (unknown) [id number] (units (unkno wn) date) unknown) (unknown) (no (unknown) (unknown) 1. No evidence (units (unknown) date) acute fracture or unknown) dislocation. (unknown) (no (unknown) (unknown) 1. Remote (units (unkn own) date) posterior unknown) laminectomy at T8 and T9. (unknown) (no (unknown) (unknown) 07/13/22 (units (unkno wn) date) unknown) (unknown) (no (unknown) (unknown) [address] [place] [address] (units (unknown) date) unknown) (unknown) (no (unknown) [...] (unknown) (unknown) Accession Number: (units (unknown) date) [id number] unknown) (unknown) (no (unknown) (unknown) Accession Number: (units (unknown) date) [id number] unknown) (unknown) (no (unknown) (unknown) Accession Number: (units (unknown) date) [id number] unknown) (unknown) (no (unknown) (unknown) Accession Number: (units (unknown) date) [id number] unknown) (unknown) (no (unknown) (unknown) Age/Sex: 47 / M (units (unknown) date) Date of Service: unknown) (unknown) (no (unknown) (unknown) [place], [place] (units ( unknown) date) [address] unknown) (unknown) (no (unknown) (unknown) Approved by: [...] (unknown) (unknown) COMPARISON: (units (un known) date) [facility], unknown) CT, CT THORACIC SPINE WO CON, [...] (unknown) (unknown) : 1975 (units (unknown) date) Acct:[id number] unknown) (unknown) (no (unknown) (unknown) Dictated by: [...] level of C6. (unknown) (no (unknown) (unknown) [facility] (units (unknown) date) unknown) (unknown) (no (unknown) [...] nown) date) unknown) (unknown) (no (unknown) (unknown) [id number] (units (unkno wn) date) unknown) (unknown) (no [...] (unknown) (unknown) : 1975 (units (unknown) date) Acct:[id number] unknown) (unknown) (no (unknown) (unknown) Date of [...] nknown) date) unknown) (unknown) (no (unknown) (unknown) [facility] (units (unknown) date) [address] [place] [address] unknown) [place] [address] (unknown) (no (unknown) (unknown) Label Comments: (units [...] nown) date) unknown) (unknown) (no (unknown) (unknown) [id number] (units (unkno wn) date) unknown) (unknown) (no [...] (unknown) (unknown) : 1975 (units (unknown) date) Acct:[id number] unknown) (unknown) (no (unknown) (unknown) Date of [...] date) Signs: unknown) (unknown) (no (unknown) (unknown) [facility] (units (unknown) date) [address] unknown) [place] [address] (unknown) (no (unknown) (unknown) Label Comments: (units [...] nown) date) unknown) (unknown) (no (unknown) (unknown) [id number] (units (unkno wn) date) unknown) (unknown) (no [...] (unknown) (unknown) : 1975 (units (unknown) date) Acct:[id number] unknown) (unknown) (no (unknown) (unknown) Date of [...] date) Signs: unknown) (unknown) (no (unknown) (unknown) [facility] (units (unknown) date) [address] unknown) [place] [address] (unknown) (no (unknown) (unknown) Label Comments: (units [...] primary unknown) care provider please contact the [facility] (unknown) (no (unknown) (unknown) *Please continue (units [...] wn) date) unknown) (unknown) (no (unknown) (unknown) [id number] (units (unkno wn) date) unknown) (unknown) (no [...] stated above (unknown) (no (unknown) (unknown) [address] [place] [address] (units (unknown) date) unknown) (unknown) (no (unknown) [...] (unknown) (unknown) Accession Number: (units (unknown) date) [id number] ?? unknown) (unknown) (no (unknown) (unknown) Accession Number: (units (unknown) date) [id number] ?? unknown) (unknown) (no (unknown) (unknown) Accession Number: (units (unknown) date) [id number] ?? unknown) (unknown) (no (unknown) (unknown) Accession Number: (units (unknown) date) [id number] ?? unknown) (unknown) (no (unknown) (unknown) Acct:[id number] (units (unknown) date) unknown) (unknown) (no (unknown) [...] (unknown) MELVINA Deng (units ( unknown) date) [address] unknown) (unknown) (no (unknown) (unknown) Approved by: [...] (unknown) (unknown) COMPARISON:? (units (u nknown) date) [facility], unknown) CT, CT THORACIC SPINE WO CON, [...] (unknown) (unknown) : 1975 (units (unknown) date) Acct:[id number] unknown) (unknown) (no (unknown) (unknown) : 1975 [...] Neck Pain unknown) (unknown) (no (unknown) (unknown) [facility] (units (unknown) date) [address] [place] [address] unknown) [place] [address] (unknown) (no (unknown) (unknown) [facility] (units (unknown) date) unknown) (unknown) (no (unknown) [...] Pain/Injury unknown) (unknown) (no (unknown) (unknown) MR#: [id number] (units (unknown) date) unknown) (unknown) (no (unknown) [...] (unknown) Resource line at (units (unknown) date) [phone]. They unknown) will ask some questions about [...] primary unknown) care provider please contact the [facility] (unknown) (no (unknown) (unknown) *Please continue (units [...] wn) date) unknown) (unknown) (no (unknown) (unknown) [id number] (units (unkno wn) date) unknown) (unknown) (no [...] stated above (unknown) (no (unknown) (unknown) [address] [place] [address] (units (unknown) date) unknown) (unknown) (no (unknown) [...] (unknown) (unknown) Accession Number: (units (unknown) date) [id number] ?? unknown) (unknown) (no (unknown) (unknown) Accession Number: (units (unknown) date) [id number] ?? unknown) (unknown) (no (unknown) (unknown) Accession Number: (units (unknown) date) [id number] ?? unknown) (unknown) (no (unknown) (unknown) Accession Number: (units (unknown) date) [id number] ?? unknown) (unknown) (no (unknown) (unknown) Acct:[id number] (units (unknown) date) unknown) (unknown) (no (unknown) [...] Date / Time (unknown) (no (unknown) (unknown) [place], [place] (units ( unknown) date) [address] unknown) (unknown) (no (unknown) (unknown) Approved by: [...] (unknown) (unknown) COMPARISON:? (units (u nknown) date) [facility], unknown) CT, CT THORACIC SPINE WO CON, [...] (unknown) (unknown) : 1975 (units (unknown) date) Acct:[id number] unknown) (unknown) (no (unknown) (unknown) : 1975 [...] Neck Pain unknown) (unknown) (no (unknown) (unknown) [facility] (units (unknown) date) [address] unknown) [place] [address] (unknown) (no (unknown) (unknown) [facility] (units (unknown) date) unknown) (unknown) (no (unknown) [...] date) unknown) (unknown) (no (unknown) (unknown) MR#: [id number] (units (unknown) date) unknown) (unknown) (no (unknown) [...] (unknown) Resource line at (units (unknown) date) [phone]. They unknown) will ask some questions about [...] nown) date) unknown) (unknown) (no (unknown) (unknown) [id number] (units (unkno wn) date) unknown) (unknown) (no (unknown) (unknown) 1. Persistent mild (units (unknown) date) bilateral unknown) hydroureteronephrosis with bilateral ureteral (unknown) (no (unknown) (unknown) 07/03/2020, 22:25. (units (unknown) date) unknown) (unknown) (no (unknown) (unknown) 07/23/22 (units (unkno wn) date) unknown) (unknown) (no (unknown) (unknown) [address] [place] [address] (units (unknown) date) unknown) (unknown) (no (unknown) [...] (unknown) (unknown) Accession Number: (units (unknown) date) [id number] unknown) (unknown) (no (unknown) (unknown) Adrenal Glands: No (units (unknown) date) adrenal nodules. unknown) (unknown) (no (unknown) (unknown) After the (units (unkn own) date) administration of IV unknown) contrast, axial sections were acquired from the (unknown) (no (unknown) (unknown) Age/Sex: 47 / M Date (uni ts (unknown) date) of Service: unknown) (unknown) (no (unknown) ([place]) [place] [address] (unit s (unknown) date) unknown) (unknown) (no [...] (unknown) (unknown) : 1975 (units (unknown) date) Acct:[id number] unknown) (unknown) (no (unknown) (unknown) Dictated by: [...] date) Excellent. unknown) (unknown) (no (unknown) (unknown) [facility] (units (unknown) date) unknown) (unknown) (no (unknown) [...] wn) date) unknown) (unknown) (no (unknown) (unknown) [facility] (units ( unknown) date) [facility], CT, CT unknown) ABDOMEN PELVIS WITH CONTRAST, 01/11/2021, 13:06. (unknown) (no (unknown) (unknown) [place] (units (unkno wn) date) unknown) (unknown) (no [...] unknown) (unknown) (no (unknown) (unknown) [facility], MR, (uni ts (unknown) date) MR ABDOMEN MRCP, unknown) 06/27/2022, 10:39. [facility] (unknown) (no (unknown) (unknown) Ventral Wall: No [...] nown) date) unknown) (unknown) (no (unknown) (unknown) [id number] (units (unkno wn) date) unknown) (unknown) (no [...] (unknown) (unknown) : 1975 (units (unknown) date) Acct:[id number] unknown) (unknown) (no (unknown) (unknown) Date of [...] date) Signs: unknown) (unknown) (no (unknown) (unknown) [facility] (units (unknown) date) [address] unknown) [place] [address] (unknown) (no (unknown) (unknown) Lab Data (units [...] # (Auto) (units (unknown) date) 900 L (1113-7154) unknown) /uL (unknown) (no (unknown) (unknown) Lymph [...] date) EMS unknown) (unknown) (no (unknown) (unknown) Brown # (Auto) (units ( unknown) date) 900 (0-900) /uL unknown) (unknown) (no (unknown) (unknown) Brown % (Auto) (units ( unknown) date) 11.0 [...] # (Auto) (units ( unknown) date) 6100 (0956-1689) unknown) /uL (unknown) (no (unknown) (unknown) Neut [...] wn) date) unknown) (unknown) (no (unknown) (unknown) [id number] (units (unkno wn) date) unknown) (unknown) (no [...] (unknown) (unknown) : 1975 (units (unknown) date) Acct:[id number] unknown) (unknown) (no (unknown) (unknown) Date of [...] date) Signs: unknown) (unknown) (no (unknown) (unknown) [facility] (units (unknown) date) [address] [place] [address] unknown) [place] [address] (unknown) (no (unknown) (unknown) Lab Data (units [...] (unknown) Lymph # (Auto) (units (unknown) date) (0808-9832) /uL unknown) (unknown) (no (unknown) (unknown) Lymph # (Auto) (units (unknown) date) 900 L (3424-2338) unknown) /uL (unknown) (no (unknown) (unknown) Lymph [...] date) EMS unknown) (unknown) (no (unknown) (unknown) Brown # (Auto) (units ( unknown) date) (0-900) /uL unknown) (unknown) (no (unknown) (unknown) Brown # (Auto) (units ( unknown) date) 900 (0-900) /uL unknown) (unknown) (no (unknown) (unknown) Brown % (Auto) (units ( unknown) date) (3-14) % unknown) (unknown) (no (unknown) (unknown) Brown % (Auto) (units ( unknown) date) 11.0 [...] Neut # (Auto) (units ( unknown) date) (4803-6949) /uL unknown) (unknown) (no (unknown) (unknown) Neut # (Auto) (units ( unknown) date) 6100 (6665-5514) unknown) /uL (unknown) (no (unknown) (unknown) Neut [...] (unknown) Ur Specific (units (un known) date) [place] unknown) (1.000-1.035) (unknown) (no (unknown) (unknown) Ur Specific (units (un known) date) [place] 1.010 unknown) (1.000-1.035) (unknown) (no (unknown) (unknown) [...] wn) date) unknown) (unknown) (no (unknown) (unknown) [id number] (units (unkno wn) date) unknown) (unknown) (no [...] (unknown) (unknown) : 1975 (units (unknown) date) Acct:[id number] unknown) (unknown) (no (unknown) (unknown) Date of [...] unknown) Infection (UTI) (unknown) (no (unknown) (unknown) [facility] (units (unknown) date) [address] [place] [address] unknown) [place] [address] (unknown) (no (unknown) (unknown) Lab Data (units [...] (unknown) Lymph # (Auto) (units (unknown) date) (2619-4470) /uL unknown) (unknown) (no (unknown) (unknown) Lymph # (Auto) 900 (units (unknown) date) L (3053-6341) /uL unknown) (unknown) (no (unknown) (unknown) Lymph [...] date) EMS unknown) (unknown) (no (unknown) (unknown) Brown # (Auto) (units ( unknown) date) (0-900) /uL unknown) (unknown) (no (unknown) (unknown) Brown # (Auto) 900 (units (unknown) date) (0-900) /uL unknown) (unknown) (no (unknown) (unknown) Brown % (Auto) (units ( unknown) date) (3-14) % unknown) (unknown) (no (unknown) (unknown) Brown % (Auto) 11.0 (units (unknown) date) (3-14) [...] Neut # (Auto) (units ( unknown) date) (4450-3403) /uL unknown) (unknown) (no (unknown) (unknown) Neut # (Auto) 6100 (units (unknown) date) (1867-1749) /uL unknown) (unknown) (no (unknown) (unknown) Neut [...] (unknown) Ur Specific (units (un known) date) [place] unknown) (1.000-1.035) (unknown) (no (unknown) (unknown) Ur Specific (units (un known) date) [place] 1.010 unknown) (1.000-1.035) (unknown) (no (unknown) (unknown) [...] wn) date) unknown) (unknown) (no (unknown) (unknown) [id number] (units (unkno wn) date) unknown) (unknown) (no [...] date) unknown) (unknown) (no (unknown) (unknown) [address] [place] [address] (units (unknown) date) unknown) (unknown) (no (unknown) [...] wn) date) unknown) (unknown) (no (unknown) (unknown) ?[facility] (units ( unknown) date) [facility], CT, CT unknown) ABDOMEN PELVIS WITH [...] (unknown) (unknown) Accession Number: (units (unknown) date) [id number] ?? unknown) (unknown) (no (unknown) (unknown) Acct:[id number] (units (unknown) date) unknown) (unknown) (no (unknown) [...] Time (unknown) (no (unknown) (unknown) [place] D[place] [address] (unit s (unknown) date) unknown) (unknown) (no [...] (unknown) (unknown) : 1975 (units (unknown) date) Acct:[id number] unknown) (unknown) (no (unknown) (unknown) : 1975 [...] unknow n) (UTI) (unknown) (no (unknown) (unknown) [facility] 1211 (uni ts (unknown) date) [address] [place] [address], unknown ) [place] [address] (unknown) (no (unknown) (unknown) [facility] (units (unknown) date) unknown) (unknown) (no (unknown) [...] (unknown) Lymph # (Auto) (units (unknown) date) (3176-4384) /uL unknown) (unknown) (no (unknown) (unknown) Lymph # (Auto) 900 L (uni ts (unknown) date) (1525-2494) /uL unknown) (unknown) (no (unknown) (unknown) Lymph [...] date) unknown) (unknown) (no (unknown) (unknown) MR#: [id number] (units (unknown) date) unknown) (unknown) (no (unknown) [...] (unknown) date) unknown) (unknown) (no (unknown) (unknown) Brown # (Auto) (0-900) (un its (unknown) date) /uL unknown) (unknown) (no (unknown) (unknown) Brown # (Auto) 900 (units (unknown) date) (0-900) /uL unknown) (unknown) (no (unknown) (unknown) Brown % (Auto) (3-14) % (u nits (unknown) date) unknown) (unknown) (no (unknown) (unknown) Brown % (Auto) 11.0 (units (unknown) date) (3-14) [...] Neut # (Auto) (units ( unknown) date) (7814-1023) /uL unknown) (unknown) (no (unknown) (unknown) Neut # (Auto) 6100 (units (unknown) date) (8195-9676) /uL unknown) (unknown) (no (unknown) (unknown) Neut [...] wn) date) unknown) (unknown) (no (unknown) (unknown) [place] (units (unkno wn) date) unknown) (unknown) (no [...] unknown) (unknown) (no (unknown) (unknown) Ur Specific [place] (unit s (unknown) date) (1.000-1.035) unknown) (unknown) (no (unknown) (unknown) Ur Specific [place] (unit s (unknown) date) 1.010 (1.000-1.035) unknown) [...] unknown) (unknown) (no (unknown) (unknown) [facility], MR, (uni ts (unknown) date) MR ABDOMEN MRC, unknown) 06/27/2022, 10:39.? 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 (units (unknown) date) unknown) (unknown) (no (unknown) [...] nown) date) unknown) (unknown) (no (unknown) (unknown) [id number] (units (unkno wn) date) unknown) (unknown) (no [...] (unknown) (unknown) : 1975 (units (unknown) date) Acct:[id number] unknown) (unknown) (no (unknown) (unknown) Date of Service: (units (unknown) date) 07/30/22 unknown) (unknown) (no (unknown) (unknown) Departure (units (unkn own) date) unknown) (unknown) (no (unknown) (unknown) Discharge Plan (units (unknown) date) unknown) (unknown) (no (unknown) (unknown) Discontinued (units (u nknown) date) Medications unknown) (unknown) (no (unknown) (unknown) ER Physician: (units ( unknown) date) Za Harrell unknown) 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 (unknown) (no (unknown) (unknown) Emergency Report (units [...] date) Signs: unknown) (unknown) (no (unknown) (unknown) [facility] (units (unknown) date) [address] unknown) [place] [address] (unknown) (no (unknown) (unknown) Label Comments: (units [...] date) unknown) (unknown) (no (unknown) (unknown) #: [id number] (units (un known) date) unknown) (unknown) (no [...] primary care unknown) provider please contact the [facility] (unknown) (no (unknown) (unknown) *Please continue (units [...] own) date) unknown) (unknown) (no (unknown) (unknown) [id number] (units (unkno wn) date) unknown) (unknown) (no [...] date) unknown) (unknown) (no (unknown) (unknown) [address] [place] [address], (units (unknown) date) [facility], [address] unknown) (unknown) (no (unknown) (unknown) 18:19 (units (unkno wn) date) unknown) (unknown) (no (unknown) (unknown) 300 mg PO BID (units ( unknown) date) unknown) (unknown) (no (unknown) (unknown) 50 mg PO BID (units (u nknown) date) unknown) (unknown) (no (unknown) (unknown) (units (unknown) date) Unit#: [id number] unknown) : 1975Location: ED (unknown) (no (unknown) [...] patient was unknown) prescribed but did not machine operator hop picker due to wrong pharmacy (unknown) (no [...] date) Impression: unknown) (unknown) (no (unknown) (unknown) [place] Count (units (u nknown) date) >100,000 CFU/ml unknown) (unknown) (no (unknown) (unknown) Consult to [facility] - (units (unknown) date) 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 (units (unknown) date) unknown) (unknown) (no (unknown) (unknown) : 1975 (units (unknown) date) Acct:[id number] unknown) (unknown) (no (unknown) (unknown) Date of [...] unknown) Infection (UTI) (unknown) (no (unknown) (unknown) [facility] (units (unknown) date) [address] unknown) [place] [address] (unknown) (no (unknown) (unknown) [facility] (units (unknown) date) Laboratory CLIA ID unknown) [id number] (unknown) (no (unknown) (unknown) Ketorolac (units (unkn [...] date) CULTURE unknown) (unknown) (no (unknown) (unknown) [place]] (units (un known) date) unknown) (unknown) (no [...] (unknown) Resource line at (units (unknown) date) [phone]. They unknown) will ask some questions about [...] (unknown) SPEC #: (units (unkno wn) date) 22:[id number] JOVANI: unknown) 07/23/22 STATUS: COMP REQ (unknown) [...] patient has unknown) not been able to machine operator hop picker his antibiotics for (unknown) (no (unknown) [...] which he was prescribed but unable to machine operator hop picker as (unknown) (no (unknown) (unknown) start [...] bothersome symptoms] (unknown) (no (unknown) (unknown) your Bowilng (units (unk nown) date) catheter changed at [...] date) unknown) (unknown) (no (unknown) (unknown) #: [id number] (units (un known) date) unknown) (unknown) (no [...] primary care unknown) provider please contact the [facility] (unknown) (no (unknown) (unknown) *Please continue (units [...] own) date) unknown) (unknown) (no (unknown) (unknown) [id number] (units (unkno wn) date) unknown) (unknown) (no [...] wn) date) unknown) (unknown) (no (unknown) (unknown) [address] [place] [address], (units (unknown) date) [facility], [address] unknown) (unknown) (no (unknown) (unknown) 18:19 (units (unkno wn) date) unknown) (unknown) (no (unknown) (unknown) 300 mg PO BID (units ( unknown) date) unknown) (unknown) (no (unknown) (unknown) 50 mg PO BID (units (u nknown) date) unknown) (unknown) (no (unknown) (unknown) (units (unknown) date) Unit#: [id number] unknown) : 1975Location: ED (unknown) (no (unknown) [...] patient was unknown) prescribed but did not machine operator hop picker due to wrong pharmacy (unknown) (no [...] date) Impression: unknown) (unknown) (no (unknown) (unknown) [place] Count (units (u nknown) date) >100,000 CFU/ml unknown) (unknown) (no (unknown) (unknown) 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 (units (unknown) date) unknown) (unknown) (no (unknown) (unknown) : 1975 (units (unknown) date) Acct:[id number] unknown) (unknown) (no (unknown) (unknown) Date of [...] unknown) Infection (UTI) (unknown) (no (unknown) (unknown) [facility] (units (unknown) date) [address] unknown) [place] [address] (unknown) (no (unknown) (unknown) [facility] (units (unknown) date) Laboratory CLIA ID unknown) [id number] (unknown) (no (unknown) (unknown) Ketorolac (units (unkn [...] 07/30/22 unknown) @ 19:09 by Za Harrell [facility]) (unknown) (no (unknown) (unknown) Medical decision [...] date) CULTURE unknown) (unknown) (no (unknown) (unknown) [place]] (units (un known) date) unknown) (unknown) (no [...] (unknown) Resource line at (units (unknown) date) [phone]. They unknown) will ask some questions about [...] (unknown) SPEC #: (units (unkno wn) date) 22:[id number] JOVANI: unknown) 07/23/22 STATUS: COMP REQ (unknown) [...] patient has unknown) not been able to machine operator hop picker his antibiotics for (unknown) (no (unknown) [...] date) be picked up unknown) tomorrow from [facility] in [place], patient is (unknown) (no (unknown) (unknown) metoprolol [...] which he was prescribed but unable to machine operator hop picker as (unknown) (no (unknown) (unknown) start [...] date) unknown) (unknown) (no (unknown) (unknown) #: [id number] (units (un known) date) unknown) (unknown) (no [...] primary care unknown) provider please contact the [facility] (unknown) (no (unknown) (unknown) *Please continue (units [...] own) date) unknown) (unknown) (no (unknown) (unknown) [id number] (units (unkno wn) date) unknown) (unknown) (no [...] date) unknown) (unknown) (no (unknown) (unknown) [address] [place] [address], (units (unknown) date) [place], [address] unknown) (unknown) (no (unknown) (unknown) 18:19 (units [...] (no (unknown) (unknown) (units (unknown) date) Unit#: [id number] unknown) : 1975Location: ED (unknown) (no (unknown) [...] patient was unknown) prescribed but did not machine operator hop picker due to wrong pharmacy (unknown) (no [...] date) Impression: unknown) (unknown) (no (unknown) (unknown) [place] Count (units (u nknown) date) >100,000 CFU/ml unknown) (unknown) (no (unknown) (unknown) 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) (unknown) (no (unknown) (unknown) Father CVA [...] Male, Urinary Tract (unknown) (no (unknown) (unknown) [facility] (units (unknown) date) [address] unknown) [place] [address] (unknown) (no (unknown) (unknown) [facility] (units (unknown) date) Laboratory CLIA ID unknown) [id number] (unknown) (no (unknown) (unknown) Ketorolac (units (unkn [...] 07/30/22 unknown) @ 19:09 by Za Harrell [facility]) (unknown) (no (unknown) (unknown) Medical decision [...] date) CULTURE unknown) (unknown) (no (unknown) (unknown) [place]] (units (un known) date) unknown) (unknown) (no [...] (unknown) Resource line at (units (unknown) date) [phone]. They unknown) will ask some questions about [...] (unknown) SPEC #: (units (unkno wn) date) [id number] JOVANI: unknown) 07/23/22 STATUS: COMP REQ (unknown) [...] 07/30/22 unknown) @ 19:09 by Za Harrell [facility]) (unknown) (no (unknown) (unknown) Take 1 [...] patient has unknown) not been able to machine operator hop picker his antibiotics for (unknown) (no (unknown) [...] date) [facility] unknown[facility] [place], patient is (unknown) (no (unknown) (unknown) metoprolol [...] which he was prescribed but unable to machine operator hop picker as (unknown) (no (unknown) (unknown) start [...] date) unknown) (unknown) (no (unknown) (unknown) #: [id number] (units (un known) date) unknown) (unknown) (no [...] primary care unknown) provider please contact the [facility] (unknown) (no (unknown) (unknown) *Please continue (units [...] own) date) unknown) (unknown) (no (unknown) (unknown) [id number] (units (unkno wn) date) unknown) (unknown) (no [...] date) unknown) (unknown) (no (unknown) (unknown) [address] [place] [address], (units (unknown) date) [place], [address] unknown) (unknown) (no (unknown) (unknown) 18:19 07/30/22 [...] (no (unknown) (unknown) (units (unknown) date) Unit#: [id number] unknown) : 1975Location: ED (unknown) (no (unknown) [...] patient was unknown) prescribed but did not machine operator hop picker due to wrong pharmacy (unknown) (no [...] date) Impression: unknown) (unknown) (no (unknown) (unknown) [place] Count (units (u nknown) date) >100,000 CFU/ml unknown) (unknown) (no (unknown) (unknown) Consult to [facility] - (units (unknown) date) 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 (units (unknown) date) unknown) (unknown) (no (unknown) (unknown) : 1975 (units (unknown) date) Acct:[id number] unknown) (unknown) (no (unknown) (unknown) Date of [...] Male, Urinary Tract (unknown) (no (unknown) (unknown) [facility] (units (unknown) date) [address] [place] [address] unknown) [place] [address] (unknown) (no (unknown) (unknown) [facility] (units (unknown) date) Laboratory CLIA ID unknown) [id number] (unknown) (no (unknown) (unknown) Ketorolac (units (unkn [...] date) CULTURE unknown) (unknown) (no (unknown) (unknown) [place]] (units (un known) date) unknown) (unknown) (no [...] (unknown) Resource line at (units (unknown) date) [phone]. They unknown) will ask some questions about [...] (unknown) SPEC #: (units (unkno wn) date) 22:[id number] JOVANI: unknown) 07/23/22 STATUS: COMP REQ (unknown) [...] 07/30/22 unknown) @ 19:09 by Za Harrell [facility]) (unknown) (no (unknown) (unknown) Source: patient [...] 07/30/22 unknown) @ 19:09 by Za Harrell [facility]) (unknown) (no (unknown) (unknown) Take 1 [...] patient has unknown) not been able to machine operator hop picker his antibiotics for (unknown) (no (unknown) [...] date) be picked up unknown) tomorrow [facility] [place], patient is (unknown) (no (unknown) (unknown) metoprolol [...] which he was prescribed but unable to machine operator hop picker as (unknown) (no (unknown) (unknown) start [...] date) unknown) (unknown) (no (unknown) (unknown) #: [id number] (units (un known) date) unknown) (unknown) (no [...] primary care unknown) provider please contact the [facility] (unknown) (no (unknown) (unknown) *Please continue (units [...] own) date) unknown) (unknown) (no (unknown) (unknown) [id number] (units (unkno wn) date) unknown) (unknown) (no [...] date) unknown) (unknown) (no (unknown) (unknown) [address] [place] [address], (units (unknown) date) [place], [address] unknown) (unknown) (no (unknown) (unknown) 18:19 07/30/22 [...] (no (unknown) (unknown) (units (unknown) date) Unit#: [id number] unknown) : 1975Location: ED (unknown) (no (unknown) [...] patient was unknown) prescribed but did not machine operator hop picker due to wrong pharmacy (unknown) (no [...] Called To: (units (unk nown) date) 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 unknown) (unknown) (no (unknown) (unknown) Cardiovascular: (units (unknown) date) Tachycardic rate unknown) and regular rhythm, no peripheral edema, warm (unknown) (no (unknown) (unknown) Chief complaint: (units (unknown) date) Urogenital-Male unknown) (unknown) (no (unknown) (unknown) Clinical (units (unkno wn) date) Impression: unknown) (unknown) (no (unknown) (unknown) [place] Count (units (u nknown) date) >100,000 CFU/ml unknown) (unknown) (no (unknown) (unknown) Cosign (units (unkno wn) date) unknown) (unknown) (no (unknown) (unknown) Course (units (unkno wn) date) unknown) (unknown) (no (unknown) (unknown) Stephan Issa D.O. (units (unknown) date) unknown) (unknown) (no (unknown) (unknown) : 1975 (units (unknown) date) Acct:[id number] unknown) (unknown) (no (unknown) (unknown) Date of [...] Male, Urinary Tract (unknown) (no (unknown) (unknown) [facility] (units (unknown) date) [address] unknown) [place] [address] (unknown) (no (unknown) (unknown) [facility] (units (unknown) date) Laboratory CLIA ID unknown) [id number] (unknown) (no (unknown) (unknown) Ketorolac (units (unkn [...] 07/30/22 unknown) @ 19:09 by Za Harrell [facility]) (unknown) (no (unknown) (unknown) Medical decision [...] date) CULTURE unknown) (unknown) (no (unknown) (unknown) [place]] (units (un known) date) unknown) (unknown) (no [...] (unknown) Resource line at (units (unknown) date) [phone]. They unknown) will ask some questions about [...] (unknown) SPEC #: (units (unkno wn) date) 22:[id number] JOVANI: unknown) 07/23/22 STATUS: COMP REQ (unknown) [...] patient has unknown) not been able to machine operator hop picker his antibiotics for (unknown) (no (unknown) [...] date) be picked up unknown) tomorrow from [facility] in [place], patient is (unknown) (no (unknown) (unknown) metoprolol [...] which he was prescribed but unable to machine operator hop picker as (unknown) (no (unknown) (unknown) start [...] given 1 L of normal unknown) saline, [place] catheter was irrigated, gail (unknown) (no (unknown) [...] nown) date) unknown) (unknown) (no (unknown) (unknown) [id number] (units (unkno wn) date) unknown) (unknown) (no (unknown) (unknown) 1. Enhancement of (units (unknown) date) the left kidney unknown) appears somewhat heterogeneous. This could (unknown) (no (unknown) (unknown) 08/06/22 (units (unkno wn) date) unknown) (unknown) (no (unknown) (unknown) [address] [place] [address] (units (unknown) date) unknown) (unknown) (no (unknown) [...] (unknown) (unknown) Accession Number: (units (unknown) date) [id number] unknown) (unknown) (no (unknown) (unknown) Adrenal Glands: (units (unknown) date) No nodule. unknown) (unknown) (no (unknown) (unknown) After the (units (unkn own) date) administration of unknown) oral and IV contrast, axial sections were acquired (unknown) (no (unknown) (unknown) Age/Sex: 47 / M (units (unknown) date) Date of Service: unknown) (unknown) (no (unknown) (unknown) [place], [place] (units ( unknown) date) [address] unknown) (unknown) (no (unknown) (unknown) Approved by: [...] (unknown) (unknown) COMPARISON: (units (un known) date) [facility] unknown) [facility], MR, MR ABDOMEN MRCP, 06/27/2022, 10:39. (unknown) (no (unknown) (unknown) CT Scan Report (units (unknown) date) unknown) (unknown) (no (unknown) (unknown) CT, CT ABDOMEN (units (unknown) date) PELVIS W CON, unknown) 07/23/2022, 23:14. (unknown) (no (unknown) (unknown) Comment: Findings (units (unknown) date) were discussed unknown) with Darci Baltazar PA-C at time of dictation. (unknown) (no (unknown) (unknown) : 1975 (units (unknown) date) Acct:[id number] unknown) (unknown) (no (unknown) (unknown) Dictated by: [...] date) Excellent. unknown) (unknown) (no (unknown) (unknown) [facility] (units (unknown) date) unknown) (unknown) (no (unknown) [...] wn) date) unknown) (unknown) (no (unknown) (unknown) [place] (units (unkno wn) date) unknown) (unknown) (no [...] head, (unknown) (no (unknown) (unknown) [facility], (units (unknown) date) CT, CT [...] (unknown) date) unknown) (unknown) (no (unknown) (unknown) [id number] (units (unkno wn) date) unknown) (unknown) (no [...] (unknown) (unknown) : 1975 (units (unknown) date) Acct:[id number] unknown) (unknown) (no (unknown) (unknown) Date of [...] 07/30/22 unknown) @ 19:09 by Za Harrell [facility]) (unknown) (no (unknown) (unknown) Father CVA [...] date) Signs: unknown) (unknown) (no (unknown) (unknown) [facility] (units (unknown) date) [address] [place] [address] Street unknown) [place] [address] (unknown) (no (unknown) (unknown) Ketorolac (units (unkn [...] (unknown) Lymph # (Auto) (units (unknown) date) (5171-1562) /uL unknown) (unknown) (no (unknown) (unknown) Lymph # (Auto) (units (unknown) date) 1200 (9769-9164) unknown) /uL (unknown) (no (unknown) (unknown) Lymph [...] 07/30/22 unknown) @ 19:09 by Za Harrell [facility]) (unknown) (no (unknown) (unknown) Medication (units (unk nown) date) Instructions unknown) Recorded Confirmed (unknown) (no (unknown) (unknown) Medication (units (unk nown) date) Instructions unknown) Recorded (unknown) (no (unknown) (unknown) [place] # (Auto) (units ( unknown) date) (0-900) /uL unknown) (unknown) (no (unknown) (unknown) [place] # (Auto) 400 (units (unknown) date) (0-900) /uL unknown) (unknown) (no (unknown) (unknown) [place] % (Auto) (units ( unknown) date) (3-14) % unknown) (unknown) (no (unknown) (unknown) [place] % (Auto) 4.7 (units (unknown) date) (3-14) % unknown) (unknown) (no (unknown) (unknown) Mother Myocardial (units (unknown) date) infarct unknown) (unknown) (no (unknown) (unknown) Neurogenic pain (units (unknown) date) unknown) (unknown) (no (unknown) (unknown) Neut # (Auto) (units ( unknown) date) (7991-6853) /uL unknown) (unknown) (no (unknown) (unknown) Neut # (Auto) 7400 (units (unknown) date) H (6076-2967) /uL unknown) (unknown) (no (unknown) (unknown) Neut [...] Patient: Eleazar (units ( unknown) date) Yann Jonse MR#: [id number] unknown) (unknown) (no (unknown) (unknown) [...] 07/30/22 unknown) @ 19:09 by Za Harrell [facility]) (unknown) (no (unknown) (unknown) Sodium (137-145) [...] (unknown) date) unknown) (unknown) (no (unknown) (unknown) [id number] (units (unkno wn) date) unknown) (unknown) (no [...] (unknown) (unknown) : 1975 (units (unknown) date) Acct:[id number] unknown) (unknown) (no (unknown) (unknown) Date of [...] date) Signs: unknown) (unknown) (no (unknown) (unknown) Integumentary/[place] (units (unknown) date) sts unknown) (unknown) (no (unknown) (unknown) [facility] (units (unknown) date) [address] unknown) [place] [address] (unknown) (no (unknown) (unknown) Ketorolac (units (unkn [...] (unknown) Lymph # (Auto) (units (unknown) date) (9248-1654) /uL unknown) (unknown) (no (unknown) (unknown) Lymph # (Auto) (units (unknown) date) 1200 (0781-2328) unknown) /uL (unknown) (no (unknown) (unknown) Lymph [...] Instructions unknown) Recorded (unknown) (no (unknown) (unknown) [place] # (Auto) (units ( unknown) date) (0-900) /uL unknown) (unknown) (no (unknown) (unknown) [place] # (Auto) 400 (units (unknown) date) (0-900) /uL unknown) (unknown) (no (unknown) (unknown) [place] % (Auto) (units ( unknown) date) (3-14) % unknown) (unknown) (no (unknown) (unknown) [place] % (Auto) 4.7 (units (unknown) date) (3-14) [...] Neut # (Auto) (units ( unknown) date) (0495-6739) /uL unknown) (unknown) (no (unknown) (unknown) Neut # (Auto) 7400 (units (unknown) date) H (1258-5108) /uL unknown) (unknown) (no (unknown) (unknown) Neut [...] (unknown) date) unknown) (unknown) (no (unknown) (unknown) [id number] (units (unkno wn) date) unknown) (unknown) (no [...] (units (unkn own) date) Decompressed with unknown) [place] catheter.? No stones.? Bladder wall appears (unknown) [...] (unknown) (unknown) COMPARISON:? (units (u nknown) date) [facility] unknown) [facility], MR, MR ABDOMEN MRCP, 06/27/2022, 10:39.? [...] (unknown) (unknown) : 1975 (units (unknown) date) Acct:[id number] unknown) (unknown) (no (unknown) (unknown) Date of [...] date) sts unknown) (unknown) (no (unknown) (unknown) [facility] (units (unknown) date) [address] unknown) [place] [address] (unknown) (no (unknown) (unknown) Ketorolac (units (unkn [...] (unknown) Lymph # (Auto) (units (unknown) date) (2641-7085) /uL unknown) (unknown) (no (unknown) (unknown) Lymph # (Auto) (units (unknown) date) 1200 (7171-6825) unknown) /uL (unknown) (no (unknown) (unknown) Lymph [...] the gluteal cleft (unknown) (no (unknown) (unknown) Brown # (Auto) (units ( unknown) date) (0-900) /uL unknown) (unknown) (no (unknown) (unknown) [place] # (Auto) 400 (units (unknown) date) (0-900) /uL unknown) (unknown) (no (unknown) (unknown) [place] % (Auto) (units ( unknown) date) (3-14) % unknown) (unknown) (no (unknown) (unknown) [place] % (Auto) 4.7 (units (unknown) date) (3-14) [...] Neut # (Auto) (units ( unknown) date) (1861-7199) /uL unknown) (unknown) (no (unknown) (unknown) Neut # (Auto) 7400 (units (unknown) date) H (7582-8754) /uL unknown) (unknown) (no (unknown) (unknown) Neut [...] nown) date) unknown) (unknown) (no (unknown) (unknown) [place] (units (unkno wn) date) unknown) (unknown) (no [...] (unknown) (unknown) Urine Specific (units (unknown) date) [place] 1.025 unknown) (unknown) (no (unknown) (unknown) [facility], (units (unknown) date) CT, CT [...] (unknown) date) unknown) (unknown) (no (unknown) (unknown) [id number] (units (unkno wn) date) unknown) (unknown) (no [...] (unknown) (unknown) COMPARISON:? (units (u nknown) date) [place] unknown) [facility], MR, MR ABDOMEN MRC, 06/27/2022, 10:39.? [...] (unknown) (unknown) : 1975 (units (unknown) date) Acct:[id number] unknown) (unknown) (no (unknown) (unknown) Date of [...] DI for Constipation (unknown) (no (unknown) (unknown) [facility]/[place] (units (unknown) date) sts unknown) (unknown) (no (unknown) (unknown) [facility] (units (unknown) date) [address] unknown) [place] [address] (unknown) (no (unknown) (unknown) Ketorolac (units (unkn [...] (unknown) Lymph # (Auto) (units (unknown) date) ([id number]) /uL unknown) (unknown) (no (unknown) (unknown) Lymph # (Auto) (units (unknown) date) 1200 (6730-1441) unknown) /uL (unknown) (no (unknown) (unknown) Lymph [...] the gluteal cleft (unknown) (no (unknown) (unknown) Brown # (Auto) (units ( unknown) date) (0-900) /uL unknown) (unknown) (no (unknown) (unknown) Brown # (Auto) 400 (units (unknown) date) (0-900) /uL unknown) (unknown) (no (unknown) (unknown) Brown % (Auto) (units ( unknown) date) (3-14) % unknown) (unknown) (no (unknown) (unknown) Brown % (Auto) 4.7 (units (unknown) date) (3-14) [...] Neut # (Auto) (units ( unknown) date) (9010-2368) /uL unknown) (unknown) (no (unknown) (unknown) Neut # (Auto) 7400 (units (unknown) date) H (6639-7326) /uL unknown) (unknown) (no (unknown) (unknown) Neut [...] nown) date) unknown) (unknown) (no (unknown) (unknown) [place] (units (unkno wn) date) unknown) (unknown) (no [...] (unknown) (unknown) Urine Specific (units (unknown) date) [place] 1.025 unknown) (unknown) (no (unknown) (unknown) [facility], (units (unknown) date) CT, CT [...] facility 2022-07-11 00:00 [address] smoker [facility] 2022-07-13 00:00 Current some day smoker [facility] 2022-07-23 00:00 Ex-smoker (finding) [facility] 2022-07-30 00:00 Ex-smoker (finding) [facility] 2022-08-06 00:00 Ex-smoker (finding) [facility] Vital Signs date measurement value units 2022-07-11 [...]
[2022-08-16] MEDS ORDERED: HYDROcod/ACETAM 5/325 MG TABLET PO STA (20:30)
[2022-08-16] MEDS ORDERED: ONDANSETRON ODT 4 MG TABLET TL STA (20:30)
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
[2022-08-16 20:52] LABS: BASOPHILS % (AUTO) 0.6 %; EOSINOPHILS # (AUTO) 0.1 10^3/uL (0.0-0.7); EOSINOPHILS % (AUTO) 1.9 %; HCT - HEMATOCRIT 39.2 % (42.0-52.0); HGB - HEMOGLOBIN 12.2 g/dL (14.0-18.0); LYMPHOCYTES # (AUTO) 1.2 10^3/uL (1.5-3.5); LYMPHOCYTES % (AUTO) 22.8 %; MEAN CORPUSCULAR HEMOGLOBIN 26.9 pg (27.0-31.0); MEAN CORPUSCULAR HGB CONC 31.1 g/dL (32.0-36.0); MEAN CORPUSCULAR VOLUME 86.5 fL (80.0-94.0); MEAN PLATELET VOLUME 11.3 fL (7.4-11.4); MONOCYTES # (AUTO) 0.4 10^3/uL (0.0-1.0); NEUTROPHILS # (AUTO) 3.5 10^3/uL (1.5-6.6); NEUTROPHILS % (AUTO) 66.3 %; PLT - PLATELET COUNT 315 10^3/uL (130-450); RED BLOOD COUNT 4.53 10^6/uL (4.70-6.10); RED CELL DISTRIBUTION WIDTH 18.1 % (12.0-15.0); WHITE BLOOD COUNT 5.3 x10^3/uL (4.8-10.8)
[2022-08-16 21:05] LABS: ALBUMIN 3.9 g/dL (3.2-5.5); ALBUMIN/GLOBULIN RATIO 1.2 (1.0-2.2); ALKALINE PHOSPHATASE 68 IU/L (42-121); ALT ALANINE AMINOTRANSFERASE 21 IU/L (10-60); AST ASPARTATE AMINOTRANSFERASE 22 IU/L (10-42); BILIRUBIN,TOTAL 0.3 mg/dL (0.2-1.0); BUN - BLOOD UREA NITROGEN 47 mg/dL (6-20); CALCIUM 8.7 mg/dL (8.5-10.3); CARBON DIOXIDE - CO2 23 mmol/L (21-32); CHLORIDE 106 mmol/L (101-111); CREATININE 1.2 mg/dL (0.6-1.2); ETOH - ETHANOL < 5.0 mg/dL; GFR - MDRD 65 (>89); GLUCOSE 141 mg/dL (70-100); LIPASE 40 U/L (22-51); POTASSIUM 3.9 mmol/L (3.5-5.0); SODIUM 138 mmol/L (135-145); TOTAL PROTEIN 7.1 g/dL (6.7-8.2)
--- NOTE | 2022-08-16 21:12 | XRAY Report ---
PROCEDURE: Chest 1 View X-Ray INDICATIONS: chest pain TECHNIQUE: One view of the chest was acquired. COMPARISON: Chest x-ray 08/13/2022 FINDINGS: Surgical changes and devices: None. Lungs and pleura: No pleural effusions or pneumothorax. Lungs are clear. Mediastinum: Mediastinal contours appear normal. Heart size is normal. Bones and chest wall: No suspicious bony lesions. Overlying soft tissues appear unremarkable. IMPRESSION: No acute pulmonary process. Reviewed by: Rocío Chan MD on 08/16/2022 9:11 PM PST Approved by: Rocío Chan MD on 08/16/2022 9:11 PM [facility] Station ID: [id number]
[2022-08-16 22:13] VITALS: BP 127/86
[2022-08-16 22:54] LABS: MUDS CUTOFF CONCENTRATIONS CUTOFF CONC BELOW:
[2022-08-16 23:06] LABS: AMPHETAMINE SCREEN,URINE NEGATIVE (NEGATIVE); BARBITURATE SCREEN,UR NEGATIVE (NEGATIVE); BENZODIAZEPINES SCREEN, URINE NEGATIVE (NEGATIVE); COCAINE SCREEN URINE NEGATIVE (NEGATIVE); METHADONE SCREEN, URINE NEGATIVE (NEGATIVE); METHAMPHETAMINES SCREEN, URINE NEGATIVE (NEGATIVE); OPIATE SCREEN, URINE NEGATIVE (NEGATIVE); OXYCODONE SCREEN, URINE NEGATIVE (NEGATIVE); PROPOXYPHENE SCREEN, URINE NEGATIVE (NEGATIVE); THC CANNABINOID SCREEN, URINE NEGATIVE (NEGATIVE); TRICYCLIC ANTIDEPRESSANT,URINE NEGATIVE (NEGATIVE)
[2022-08-16] MEDS ORDERED: HYDROcod/ACET 5/325 Prepack 4 PO STA (23:17)
== END 2022-08-17 00:42 | disposition home or self-care (01) ==
LOC: EDUNIT# → ED 19:39
DX: R07.89 Other chest pain (principal); R11.14 Bilious vomiting; I10 Essential (primary) hypertension; G82.20 Paraplegia, unspecified
CPT/HCPCS: 36415; 71045; 80053; 80306; 83690; 85025; 93005; 99283; 99284; A9270; G0480; Q0162; 80320

== ENCOUNTER 2022-08-17 00:43 | Outpatient (CLI) | payer MEDICARE, MEDICAID | END 2022-08-17 00:44 | disposition home or self-care (01) | LOC: EMS 00:43 | PROVIDERS: ATTEND Emergency Medicine | DX: R07.89 Other chest pain (principal); R11.2 Nausea with vomiting, unspecified; M54.9 Dorsalgia, unspecified; Z74.01 Bed confinement status | CPT/HCPCS: A0425; A0428 ==

== ENCOUNTER 2022-08-17 16:02 | Outpatient (CLI) | payer MEDICARE, MEDICAID | END 2022-08-17 16:03 | disposition critical access hospital (66) | LOC: EMS 16:02 | DX: R07.89 Other chest pain (principal); F41.9 Anxiety disorder, unspecified; Z74.8 Other problems related to care provider dependency; G82.20 Paraplegia, unspecified | CPT/HCPCS: A0425; A0429 ==

== ENCOUNTER 2022-08-17 16:28 | Emergency (ER) | payer MEDICARE, MEDICAID ==
[2022-08-17] MEDS ORDERED: LIDOCAINE PATCH 5% TOP STA (16:48)
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
--- OUTSIDE RECORDS SUMMARY | 2022-08-17 17:04 | EXTERNAL MEDICAL SUMMARY RPT | Continuity of Care Document ---
:1975 Author Organization [facility] Address [address] [place] [address] Phone Care Team Providers Name Role Phone Unavailable Unavailable Unavailable Danika García Unavailable Unavailable Allergies and Intolerances date description facility type (no date) gabapentin [facility] (unknown) (no date) morphine [facility] (unknown) Encounters No information. Functional Status No information. Immunizations No information. Medications date description facility 2022-07-30 00:00 Oxycodone-Acetaminophen [facility] 2022-07-30 00:00 Phenazopyridine [facility] 2022-08-06 00:00 Doxycycline Hyclate [facility] 2022-07-11 00:00 Lidocaine [facility] 2022-07-24 00:00 Sulfamethoxazole-Trimethoprim [facility] 2022-07-30 00:00 Sulfamethoxazole-Trimethoprim [facility] 2022-07-30 00:00 Ketorolac [facility] Problems date description facility 2022-07-11 00:00 Anterior chest wall pain [facility] 2022-07-13 00:00 Strain of neck muscle [facility] 2022-07-13 00:00 Strain of thoracic region [facility] 2022-07-24 00:00 Acute urinary tract infection [facility] 2022-07-30 00:00 Methicillin [facility] 2022-08-06 00:00 Constipation [facility] 2022-08-06 00:00 Pyelonephritis [facility] Procedures date description facility 2022-07-12 00:00 Anaerobic Culture [facility] 2022-07-13 00:00 Anaerobic Culture [facility] 2022-07-24 00:00 Anaerobic Culture [facility] 2022-07-30 00:00 Anaerobic Culture [facility] 2022-08-07 00:00 Anaerobic [facility] 2022-07-13 00:00 Computed tomography of head or brain wi [facility] contrast 2022-07-12 00:00 Gram Stain [facility] 2022-07-13 00:00 Gram Stain [facility] 2022-07-24 00:00 Gram Stain [facility] 2022-07-30 00:00 Gram Stain [facility] 2022-08-07 00:00 Gram Stain [facility] 2022-07-11 00:00 X-ray [facility] chest, [facility] 2022-07-[facility] 00:00 CT [facility] 2022-08-06 00:00 CT abdomen pelvis w [facility] 2022-07-13 00:00 Computed tomography of cervical spine w [facility] contrast 2022-07-13 00:00 CT thoracic spine [facility] 2022-07-13 00:00 CT lumbar spine [facility] Results/Labs test date author facility value [...] nown) date) unknown) (unknown) (no (unknown) (unknown) [id number] (units (unkno wn) date) unknown) (unknown) (no [...] (unknown) (unknown) : 1975 (units (unknown) date) Acct:[id number] unknown) (unknown) (no (unknown) (unknown) Date of [...] nknown) date) unknown) (unknown) (no (unknown) (unknown) [facility] (units (unknown) date) [address] [place] [address] unknown) [place] [address] (unknown) (no (unknown) (unknown) Label Comments: (units [...] nown) date) unknown) (unknown) (no (unknown) (unknown) [id number] (units (unkno wn) date) unknown) (unknown) (no (unknown) (unknown) 1. No acute (units (un known) date) cardiopulmonary unknown) disease. (unknown) (no (unknown) (unknown) 07/11/22 (units (unkno wn) date) unknown) (unknown) (no (unknown) (unknown) [facility] [address] [place] [address] (units (unknown) date) unknown) (unknown) (no (unknown) (unknown) Accession Number: (units (unknown) date) [id number] unknown) (unknown) (no (unknown) (unknown) Age/Sex: 47 / M (units (unknown) date) Date of Service: unknown) (unknown) (no (unknown) (unknown) [place] (units ( unknown) date) [address] unknown) (unknown) (no (unknown) (unknown) Approved by: (units (u nknown) date) Hossein Almanzar unknown) Marcial on 07/11/2022 at 21:50 (unknown) (no (unknown) (unknown) Bones and chest (units (unknown) date) wall: No unknown) suspicious bony lesions. Overlying soft tissues (unknown) (no (unknown) (unknown) COMPAR[facility]: (units (un known) date[facility], 06/26/2022, 15:13. (unknown) (no (unknown) (unknown) : 1975 (units (unknown) date) Acct:[id number] unknown) (unknown) (no (unknown) (unknown) Dictated by: (units (u nknown) date) Hossein Almanzar unknown) Marcial on 07/11/2022 at 21:49 (unknown) (no (unknown) (unknown) FINDINGS: (units (unkn own) date) unknown) (unknown) (no (unknown) (unknown) IMPRESSION: (units (un known) date) unknown) (unknown) (no (unknown) (unknown) INDICATIONS: left (units (unknown) date) side chest pain unknown) (unknown) (no (unknown) (unknown) [facility] (units (unknown) date) unknown) (unknown) (no [...] nown) date) unknown) (unknown) (no (unknown) (unknown) [id number] (units (unkno wn) date) unknown) (unknown) (no [...] wn) date) unknown) (unknown) (no (unknown) (unknown) [address] [place] [address] (units (unknown) date) unknown) (unknown) (no (unknown) [...] (unknown) (unknown) Accession Number: (units (unknown) date) [id number] ?? unknown) (unknown) (no (unknown) (unknown) Acct:[id number] (units (unknown) date) unknown) (unknown) (no (unknown) [...] Date / Time (unknown) (no (unknown) (unknown) [place], [place] (units ( unknown) date) [address] unknown) (unknown) (no (unknown) (unknown) Approved by: [...] (unknown) (unknown) COMPARISON:? (units (u nknown) date) [facility] 1 [facility], 06/26/2022, [...] (unknown) (unknown) : 1975 (units (unknown) date) Acct:[id number] unknown) (unknown) (no (unknown) (unknown) : 1975 [...] date) Signs: unknown) (unknown) (no (unknown) (unknown) [facility] (units (unknown) date) [address] unknown) [place] [address] (unknown) (no (unknown) (unknown) [facility] (units (unknown) date) unknown) (unknown) (no [...] Lymph # (Auto) (units (unknown) date) 1100 (8160-2749) unknown) /uL (unknown) (no (unknown) (unknown) Lymph [...] date) unknown) (unknown) (no (unknown) (unknown) MR#: [id number] (units (unknown) date) unknown) (unknown) (no (unknown) (unknown) Mediastinum:? (units ( unknown) date) Mediastinal unknown) contours appear normal.? Heart size is normal.? (unknown) (no (unknown) (unknown) Medical History (units (unknown) date) (Reviewed 10/31/21 unknown) @ 21:00 by GENIE Johnson) (unknown) (no (unknown) (unknown) Medication (units (unk nown) date) Instructions unknown) Recorded Confirmed (unknown) (no (unknown) (unknown) [place] # (Auto) 300 (units (unknown) date) (0-900) /uL unknown) (unknown) (no (unknown) (unknown) [place] % (Auto) 5.5 (units (unknown) date) (3-14) % unknown) (unknown) (no (unknown) (unknown) Mother Myocardial (units (unknown) date) infarct unknown) (unknown) (no (unknown) (unknown) Neurogenic pain (units (unknown) date) unknown) (unknown) (no (unknown) (unknown) Neut # (Auto) (units ( unknown) date) 4000 (8286-6216) unknown) /uL (unknown) (no (unknown) (unknown) Neut [...] primary unknown) care provider please contact the [facility] (unknown) (no (unknown) (unknown) *Please continue [...] discussed your history (unknown) (no (unknown) (unknown) [id number] (units (unkno wn) date) unknown) (unknown) (no [...] stated above (unknown) (no (unknown) (unknown) [address] [place] [address] (units (unknown) date) unknown) (unknown) (no (unknown) [...] (unknown) (unknown) Accession Number: (units (unknown) date) [id number] ?? unknown) (unknown) (no (unknown) (unknown) Acct:[id number] (units (unknown) date) unknown) (unknown) (no (unknown) [...] (unknown) MELVINA Deng (units ( unknown) date) [address] unknown) (unknown) (no (unknown) (unknown) Anterior chest [...] (unknown) (unknown) COMPARISON:? (units (u nknown) date) [facility] 1 [facility], 06/26/2022, [...] (unknown) (unknown) : 1975 (units (unknown) date) Acct:[id number] unknown) (unknown) (no (unknown) (unknown) : 1975 [...] Chest unknown) Pain (unknown) (no (unknown) (unknown) [facility] (units (unknown) date) [address] unknown) [place] [address] (unknown) (no (unknown) (unknown) [facility] (units (unknown) date) unknown) (unknown) (no [...] Lymph # (Auto) (units (unknown) date) 1100 (9660-0176) unknown) /uL (unknown) (no (unknown) (unknown) Lymph [...] date) unknown) (unknown) (no (unknown) (unknown) MR#: [id number] (units (unknown) date) unknown) (unknown) (no (unknown) [...] Instructions unknown) Recorded (unknown) (no (unknown) (unknown) [place] # (Auto) 300 (units (unknown) date) (0-900) /uL unknown) (unknown) (no (unknown) (unknown) [place] % (Auto) 5.5 (units (unknown) date) (3-14) % unknown) (unknown) (no (unknown) (unknown) Mother Myocardial (units (unknown) date) infarct unknown) (unknown) (no (unknown) (unknown) Multiple causes (units (unknown) date) of chest pain unknown) considered including AR, PE, pneumothorax, (unknown) (no (unknown) (unknown) NECK: [...] # (Auto) (units ( unknown) date) 4000 (7637-0107) unknown) /uL (unknown) (no (unknown) (unknown) Neut [...] (unknown) Resource line at (units (unknown) date) [phone]. They unknown) will ask some questions about [...] nown) date) unknown) (unknown) (no (unknown) (unknown) [id number] (units (unkno wn) date) unknown) (unknown) (no (unknown) (unknown) 1. No evidence (units (unknown) date) acute fracture or unknown) dislocation. (unknown) (no (unknown) (unknown) 1. Remote (units (unkn own) date) posterior unknown) laminectomy at T8 and T9. (unknown) (no (unknown) (unknown) 07/13/22 (units (unkno wn) date) unknown) (unknown) (no (unknown) (unknown) [address] [place] [address] (units (unknown) date) unknown) (unknown) (no (unknown) [...] (unknown) (unknown) Accession Number: (units (unknown) date) [id number] unknown) (unknown) (no (unknown) (unknown) Accession Number: (units (unknown) date) [id number] unknown) (unknown) (no (unknown) (unknown) Accession Number: (units (unknown) date) [id number] unknown) (unknown) (no (unknown) (unknown) Accession Number: (units (unknown) date) [id number] unknown) (unknown) (no (unknown) (unknown) Age/Sex: 47 / M (units (unknown) date) Date of Service: unknown) (unknown) (no (unknown) (unknown) [place], [place] (units ( unknown) date) [address] unknown) (unknown) (no (unknown) (unknown) Approved by: [...] (unknown) (unknown) COMPARISON: (units (un known) date) [facility], unknown) CT, CT THORACIC SPINE WO [...] (unknown) (unknown) : 1975 (units (unknown) date) Acct:[id number] unknown) (unknown) (no (unknown) (unknown) Dictated by: [...] level of C6. (unknown) (no (unknown) (unknown) [facility] (units (unknown) date) unknown) (unknown) (no [...] nown) date) unknown) (unknown) (no (unknown) (unknown) [id number] (units (unkno wn) date) unknown) (unknown) (no [...] (unknown) (unknown) : 1975 (units (unknown) date) Acct:[id number] unknown) (unknown) (no (unknown) (unknown) Date of [...] nknown) date) unknown) (unknown) (no (unknown) (unknown) [facility] (units (unknown) date) [address] [place] [address] unknown) [place] [address] (unknown) (no (unknown) (unknown) Label Comments: (units [...] nown) date) unknown) (unknown) (no (unknown) (unknown) [id number] (units (unkno wn) date) unknown) (unknown) (no [...] (unknown) (unknown) : 1975 (units (unknown) date) Acct:[id number] unknown) (unknown) (no (unknown) (unknown) Date of [...] date) Signs: unknown) (unknown) (no (unknown) (unknown) [facility] (units (unknown) date) [address] unknown) [place] [address] (unknown) (no (unknown) (unknown) Label Comments: (units [...] nown) date) unknown) (unknown) (no (unknown) (unknown) [id number] (units (unkno wn) date) unknown) (unknown) (no [...] (unknown) (unknown) : 1975 (units (unknown) date) Acct:[id number] unknown) (unknown) (no (unknown) (unknown) Date of [...] date) Signs: unknown) (unknown) (no (unknown) (unknown) [facility] (units (unknown) date) [address] unknown) [place] [address] (unknown) (no (unknown) (unknown) Label Comments: (units [...] primary unknown) care provider please contact the [facility] (unknown) (no (unknown) (unknown) *Please continue [...] wn) date) unknown) (unknown) (no (unknown) (unknown) [id number] (units (unkno wn) date) unknown) (unknown) (no [...] stated above (unknown) (no (unknown) (unknown) [address] [place] [address] (units (unknown) date) unknown) (unknown) (no (unknown) [...] (unknown) (unknown) Accession Number: (units (unknown) date) [id number] ?? unknown) (unknown) (no (unknown) (unknown) Accession Number: (units (unknown) date) [id number] ?? unknown) (unknown) (no (unknown) (unknown) Accession Number: (units (unknown) date) [id number] ?? unknown) (unknown) (no (unknown) (unknown) Accession Number: (units (unknown) date) [id number] ?? unknown) (unknown) (no (unknown) (unknown) Acct:[id number] (units (unknown) date) unknown) (unknown) (no (unknown) [...] (unknown) MELVINA Deng (units ( unknown) date) [address] unknown) (unknown) (no (unknown) (unknown) Approved by: [...] (unknown) (unknown) COMPARISON:? (units (u nknown) date) [facility], unknown) CT, CT THORACIC SPINE WO [...] nown) date) unknown) (unknown) (no (unknown) (unknown) Danica,Audar (units (unknown) date) unknown) (unknown) (no (unknown) [...] (unknown) (unknown) : 1975 (units (unknown) date) Acct:[id number] unknown) (unknown) (no (unknown) (unknown) : 1975 [...] Neck Pain unknown) (unknown) (no (unknown) (unknown) [facility] (units (unknown) date) [address] [place] [address] unknown) [place] [address] (unknown) (no (unknown) (unknown) [facility] (units (unknown) date) unknown) (unknown) (no [...] Pain/Injury unknown) (unknown) (no (unknown) (unknown) MR#: [id number] (units (unknown) date) unknown) (unknown) (no (unknown) [...] (unknown) Resource line at (units (unknown) date) [phone]. They unknown) will ask some questions about [...] primary unknown) care provider please contact the [facility] (unknown) (no (unknown) (unknown) *Please continue [...] wn) date) unknown) (unknown) (no (unknown) (unknown) [id number] (units (unkno wn) date) unknown) (unknown) (no [...] stated above (unknown) (no (unknown) (unknown) [address] [place] [address] (units (unknown) date) unknown) (unknown) (no (unknown) [...] (unknown) (unknown) Accession Number: (units (unknown) date) [id number] ?? unknown) (unknown) (no (unknown) (unknown) Accession Number: (units (unknown) date) [id number] ?? unknown) (unknown) (no (unknown) (unknown) Accession Number: (units (unknown) date) [id number] ?? unknown) (unknown) (no (unknown) (unknown) Accession Number: (units (unknown) date) [id number] ?? unknown) (unknown) (no (unknown) (unknown) Acct:[id number] (units (unknown) date) unknown) (unknown) (no (unknown) [...] Date / Time (unknown) (no (unknown) (unknown) [place], [place] (units ( unknown) date) [address] unknown) (unknown) (no (unknown) (unknown) Approved by: [...] (unknown) (unknown) COMPARISON:? (units (u nknown) date) [facility], unknown) CT, CT THORACIC SPINE WO [...] (unknown) (unknown) : 1975 (units (unknown) date) Acct:[id number] unknown) (unknown) (no (unknown) (unknown) : 1975 [...] Neck Pain unknown) (unknown) (no (unknown) (unknown) [facility] (units (unknown) date) [address] unknown) [place] [address] (unknown) (no (unknown) (unknown) [facility] (units (unknown) date) unknown) (unknown) (no [...] date) unknown) (unknown) (no (unknown) (unknown) MR#: [id number] (units (unknown) date) unknown) (unknown) (no (unknown) [...] (unknown) Resource line at (units (unknown) date) [phone]. They unknown) will ask some questions about [...] nown) date) unknown) (unknown) (no (unknown) (unknown) [id number] (units (unkno wn) date) unknown) (unknown) (no (unknown) (unknown) 1. Persistent mild (units (unknown) date) bilateral unknown) hydroureteronephrosis with bilateral ureteral (unknown) (no (unknown) (unknown) 07/03/2020, 22:25. (units (unknown) date) unknown) (unknown) (no (unknown) (unknown) 07/23/22 (units (unkno wn) date) unknown) (unknown) (no (unknown) (unknown) [address] [place] [address] (units (unknown) date) unknown) (unknown) (no (unknown) [...] (unknown) (unknown) Accession Number: (units (unknown) date) [id number] unknown) (unknown) (no (unknown) (unknown) Adrenal Glands: No (units (unknown) date) adrenal nodules. unknown) (unknown) (no (unknown) (unknown) After the (units (unkn own) date) administration of IV unknown) contrast, axial sections were acquired from the (unknown) (no (unknown) (unknown) Age/Sex: 47 / M Date (uni ts (unknown) date) of Service: unknown) (unknown) (no (unknown) ([place]) [place] [address] (unit s (unknown) date) unknown) (unknown) (no [...] (unknown) (unknown) : 1975 (units (unknown) date) Acct:[id number] unknown) (unknown) (no (unknown) (unknown) Dictated by: [...] date) Excellent. unknown) (unknown) (no (unknown) (unknown) [facility] (units (unknown) date) unknown) (unknown) (no [...] wn) date) unknown) (unknown) (no (unknown) (unknown) [facility] (units ( unknown) date) [facility], CT, CT unknown) ABDOMEN PELVIS WITH CONTRAST, 01/11/2021, 13:06. (unknown) (no (unknown) (unknown) [place] (units (unkno wn) date) unknown) (unknown) (no (unknown) (unknown) Spleen: Normal in (units (unknown) date) size. unknown) (unknown) (no (unknown) (unknown) Stomach and Bowel: (units (unknown) date) Stomach, small bowel unknown) loops, and colon are normal in caliber (unknown) (no (unknown) (unknown) TECHNIQUE: (units (unk nown) date) unknown) (unknown) (no (unknown) (unknown) There is (units (unkno wn) date) unknown) (unknown) (no (unknown) (unknown) [facility], MR, (uni ts (unknown) date) MR ABDOMEN MRCP, unknown) 06/27/2022, 10:39. [facility] (unknown) (no (unknown) (unknown) Ventral Wall: [...] nown) date) unknown) (unknown) (no (unknown) (unknown) [id number] (units (unkno wn) date) unknown) (unknown) (no [...] (unknown) (unknown) : 1975 (units (unknown) date) Acct:[id number] unknown) (unknown) (no (unknown) (unknown) Date of [...] date) Signs: unknown) (unknown) (no (unknown) (unknown) [facility] (units (unknown) date) [address] unknown) [place] [address] (unknown) (no (unknown) (unknown) Lab Data (units [...] # (Auto) (units (unknown) date) 900 L (2280-1982) unknown) /uL (unknown) (no (unknown) (unknown) Lymph [...] date) EMS unknown) (unknown) (no (unknown) (unknown) [place] # (Auto) (units ( unknown) date) 900 (0-900) /uL unknown) (unknown) (no (unknown) (unknown) [place] % (Auto) (units ( unknown) date) 11.0 [...] # (Auto) (units ( unknown) date) 6100 (2663-2144) unknown) /uL (unknown) (no (unknown) (unknown) Neut [...] wn) date) unknown) (unknown) (no (unknown) (unknown) [id number] (units (unkno wn) date) unknown) (unknown) (no [...] (unknown) (unknown) : 1975 (units (unknown) date) Acct:[id number] unknown) (unknown) (no (unknown) (unknown) Date of [...] date) Signs: unknown) (unknown) (no (unknown) (unknown) [facility] (units (unknown) date) [address] [place] [address] unknown) [place] [address] (unknown) (no (unknown) (unknown) Lab Data (units [...] (unknown) Lymph # (Auto) (units (unknown) date) (9038-6393) /uL unknown) (unknown) (no (unknown) (unknown) Lymph # (Auto) (units (unknown) date) 900 L (2766-6928) unknown) /uL (unknown) (no (unknown) (unknown) Lymph [...] date) EMS unknown) (unknown) (no (unknown) (unknown) [place] # (Auto) (units ( unknown) date) (0-900) /uL unknown) (unknown) (no (unknown) (unknown) [place] # (Auto) (units ( unknown) date) 900 (0-900) /uL unknown) (unknown) (no (unknown) (unknown) [place] % (Auto) (units ( unknown) date) (3-14) % unknown) (unknown) (no (unknown) (unknown) [place] % (Auto) (units ( unknown) date) 11.0 [...] Neut # (Auto) (units ( unknown) date) (0358-4322) /uL unknown) (unknown) (no (unknown) (unknown) Neut # (Auto) (units ( unknown) date) 6100 (9162-5292) unknown) /uL (unknown) (no (unknown) (unknown) Neut [...] (unknown) Ur Specific (units (un known) date) [place] unknown) (1.000-1.035) (unknown) (no (unknown) (unknown) Ur Specific (units (un known) date) [place] 1.010 unknown) (1.000-1.035) (unknown) (no (unknown) (unknown) [...] wn) date) unknown) (unknown) (no (unknown) (unknown) [id number] (units (unkno wn) date) unknown) (unknown) (no [...] (unknown) (unknown) : 1975 (units (unknown) date) Acct:[id number] unknown) (unknown) (no (unknown) (unknown) Date of [...] unknown) Infection (UTI) (unknown) (no (unknown) (unknown) [facility] (units (unknown) date) [address] [place] [address] unknown) [place] [address] (unknown) (no (unknown) (unknown) Lab Data (units [...] (unknown) Lymph # (Auto) (units (unknown) date) (0697-4170) /uL unknown) (unknown) (no (unknown) (unknown) Lymph # (Auto) 900 (units (unknown) date) L (5795-4839) /uL unknown) (unknown) (no (unknown) (unknown) Lymph [...] date) EMS unknown) (unknown) (no (unknown) (unknown) [place] # (Auto) (units ( unknown) date) (0-900) /uL unknown) (unknown) (no (unknown) (unknown) [place] # (Auto) 900 (units (unknown) date) (0-900) /uL unknown) (unknown) (no (unknown) (unknown) [place] % (Auto) (units ( unknown) date) (3-14) % unknown) (unknown) (no (unknown) (unknown) [place] % (Auto) 11.0 (units (unknown) date) (3-14) [...] Neut # (Auto) (units ( unknown) date) (8053-0701) /uL unknown) (unknown) (no (unknown) (unknown) Neut # (Auto) 6100 (units (unknown) date) (5072-9703) /uL unknown) (unknown) (no (unknown) (unknown) Neut [...] (unknown) Ur Specific (units (un known) date) [place] unknown) (1.000-1.035) (unknown) (no (unknown) (unknown) Ur Specific (units (un known) date) [place] 1.010 unknown) (1.000-1.035) (unknown) (no (unknown) (unknown) [...] signed (u nits (unknown) date) by Stephan Isas D.O.> unknow n) (unknown) (no (unknown) (unknown) [...] wn) date) unknown) (unknown) (no (unknown) (unknown) [id number] (units (unkno wn) date) unknown) (unknown) (no [...] date) unknown) (unknown) (no (unknown) (unknown) [address] [place] [address] (units (unknown) date) unknown) (unknown) (no (unknown) [...] wn) date) unknown) (unknown) (no (unknown) (unknown) ?[facility] (units ( unknown) date) [facility], [...] (unknown) (unknown) Accession Number: (units (unknown) date) [id number] ?? unknown) (unknown) (no (unknown) (unknown) Acct:[id number] (units (unknown) date) unknown) (unknown) (no (unknown) [...] Time (unknown) (no (unknown) (unknown) MEL[place]INA Deng [address] (unit s (unknown) date) unknown) (unknown) (no [...] (unknown) (unknown) : 1975 (units (unknown) date) Acct:[id number] unknown) (unknown) (no (unknown) (unknown) : 1975 [...] unknow n) (UTI) (unknown) (no (unknown) (unknown) [facility] 12[address] (uni ts (unknown) date) [address] [place] [address], unknown ) [place] [address] (unknown) (no (unknown) (unknown) [facility] (units (unknown) date) unknown) (unknown) (no [...] (unknown) Lymph # (Auto) (units (unknown) date) (5310-8207) /uL unknown) (unknown) (no (unknown) (unknown) Lymph # (Auto) 900 L (uni ts (unknown) date) (1514-6199) /uL unknown) (unknown) (no (unknown) (unknown) Lymph [...] date) unknown) (unknown) (no (unknown) (unknown) MR#: [id number] (units (unknown) date) unknown) (unknown) (no (unknown) [...] (unknown) date) unknown) (unknown) (no (unknown) (unknown) [place] # (Auto) (0-900) (un its (unknown) date) /uL unknown) (unknown) (no (unknown) (unknown) [place] # (Auto) 900 (units (unknown) date) (0-900) /uL unknown) (unknown) (no (unknown) (unknown) [place] % (Auto) (3-14) % (u nits (unknown) date) unknown) (unknown) (no (unknown) (unknown) [place] % (Auto) 11.0 (units (unknown) date) (3-14) [...] Neut # (Auto) (units ( unknown) date) (8855-9130) /uL unknown) (unknown) (no (unknown) (unknown) Neut # (Auto) 6100 (units (unknown) date) (6808-9583) /uL unknown) (unknown) (no (unknown) (unknown) Neut [...] wn) date) unknown) (unknown) (no (unknown) (unknown) [place] (units (unkno wn) date) unknown) (unknown) (no [...] unknown) (unknown) (no (unknown) (unknown) Ur Specific [place] (unit s (unknown) date) (1.000-1.035) unknown) (unknown) (no (unknown) (unknown) Ur Specific [place] (unit s (unknown) date) 1.010 (1.000-1.035) unknown) [...] (unknown) date) unknown) (unknown) (no (unknown) (unknown) [facility], MR, (uni ts (unknown) date) MR ABDOMEN MRC, unknown) 06/27/2022, 10:39.? [place] (unknown) (no (unknown) (unknown) [place]: [...] date) unknown) (unknown) (no (unknown) (unknown) [employer] (units (unknown) date) unknown) (unknown) (no (unknown) [...] nown) date) unknown) (unknown) (no (unknown) (unknown) [id number] (units (unkno wn) date) unknown) (unknown) (no [...] (unknown) (unknown) : 1975 (units (unknown) date) Acct:[id number] unknown) (unknown) (no (unknown) (unknown) Date of Service: (units (unknown) date) 07/30/22 unknown) (unknown) (no (unknown) (unknown) Departure (units (unkn own) date) unknown) (unknown) (no (unknown) (unknown) Discharge Plan (units (unknown) date) unknown) (unknown) (no (unknown) (unknown) Discontinued (units (u nknown) date) Medications unknown) (unknown) (no (unknown) (unknown) ER Physician: (units ( unknown) date) Za Harrell unknown) CLINIC LPN (unknown) (no (unknown) (unknown) Emergency Report (units [...] date) Signs: unknown) (unknown) (no (unknown) (unknown) [facility] (units (unknown) date) [address] unknown) [place] [address] (unknown) (no (unknown) (unknown) Label Comments: (units [...] Patient: Eleazar (units ( unknown) date) SrYann oBnita MR#: [id number] unknown) (unknown) (no (unknown) (unknown) [...] date) unknown) (unknown) (no (unknown) (unknown) #: [id number] (units (un known) date) unknown) (unknown) (no [...] primary care unknown) provider please contact the [facility] (unknown) (no (unknown) (unknown) *Please continue [...] own) date) unknown) (unknown) (no (unknown) (unknown) [id number] (units (unkno wn) date) unknown) (unknown) (no [...] date) unknown) (unknown) (no (unknown) (unknown) [address] [place] [address], (units (unknown) date) [facility], [address] unknown) (unknown) (no (unknown) (unknown) 18:19 (units (unkno wn) date) unknown) (unknown) (no (unknown) (unknown) 300 mg PO BID (units ( unknown) date) unknown) (unknown) (no (unknown) (unknown) 50 mg PO BID (units (u nknown) date) unknown) (unknown) (no (unknown) (unknown) (units (unknown) date) Unit#: [id number] unknown) : 1975Location: ED (unknown) (no (unknown) [...] patient was unknown) prescribed but did not brain picker due to wrong pharmacy (unknown) (no [...] date) Impression: unknown) (unknown) (no (unknown) (unknown) [place] Count (units (u nknown) date) >100,000 CFU/ml unknown) (unknown) (no (unknown) (unknown) Consult to [facility] - (units (unknown) date) Java Analyst unknown) Stat (unknown) (no (unknown) (unknown) Course (units (unkno wn) date) unknown) (unknown) (no (unknown) (unknown) Stephan Issa D.O. (units (unknown) date) unknown) (unknown) (no (unknown) (unknown) : 1975 (units (unknown) date) Acct:[id number] unknown) (unknown) (no (unknown) (unknown) Date of [...] unknown) Infection (UTI) (unknown) (no (unknown) (unknown) [facility] (units (unknown) date) [address] unknown) [place] [address] (unknown) (no (unknown) (unknown) [facility] (units (unknown) date) Laboratory CLIA ID unknown) [id number] (unknown) (no (unknown) (unknown) Ketorolac (units (unkn [...] date) CULTURE unknown) (unknown) (no (unknown) (unknown) [place]] (units (un known) date) unknown) (unknown) (no [...] (unknown) Resource line at (units (unknown) date) [phone]. They unknown) will ask some questions about [...] (unknown) SPEC #: (units (unkno wn) date) [id number] JOVANI: unknown) 07/23/22 STATUS: COMP REQ (unknown) [...] patient has unknown) not been able to brain picker his antibiotics for (unknown) (no (unknown) [...] which he was prescribed but unable to brain picker as (unknown) (no (unknown) (unknown) start [...] date) unknown) (unknown) (no (unknown) (unknown) #: [id number] (units (un known) date) unknown) (unknown) (no [...] primary care unknown) provider please contact the [facility] (unknown) (no (unknown) (unknown) *Please continue [...] own) date) unknown) (unknown) (no (unknown) (unknown) [id number] (units (unkno wn) date) unknown) (unknown) (no [...] wn) date) unknown) (unknown) (no (unknown) (unknown) [address] [place] [address], (units (unknown) date) [facility], [address] unknown) (unknown) (no (unknown) (unknown) 18:19 (units (unkno wn) date) unknown) (unknown) (no (unknown) (unknown) 300 mg PO BID (units ( unknown) date) unknown) (unknown) (no (unknown) (unknown) 50 mg PO BID (units (u nknown) date) unknown) (unknown) (no (unknown) (unknown) (units (unknown) date) Unit#: [id number] unknown) : 1975Location: ED (unknown) (no (unknown) [...] patient was unknown) prescribed but did not brain picker due to wrong pharmacy (unknown) (no [...] date) Impression: unknown) (unknown) (no (unknown) (unknown) [place] Count (units (u nknown) date) >100,000 CFU/ml unknown) (unknown) (no (unknown) (unknown) Consult to [employer] MANAGER - (units (unknown) date) Java Analyst unknown) Stat (unknown) (no (unknown) (unknown) Course (units (unkno wn) date) unknown) (unknown) (no (unknown) (unknown) Stephan Issa D.O. (units (unknown) date) unknown) (unknown) (no (unknown) (unknown) : 1975 (units (unknown) date) Acct:[id number] unknown) (unknown) (no (unknown) (unknown) Date of [...] unknown) Infection (UTI) (unknown) (no (unknown) (unknown) [facility] (units (unknown) date) [address] unknown) [place] [address] (unknown) (no (unknown) (unknown) [facility] (units (unknown) date) Laboratory CLIA ID unknown) [id number] (unknown) (no (unknown) (unknown) Ketorolac (units (unkn [...] 07/30/22 unknown) @ 19:09 by Za Harrell [facility]) (unknown) (no (unknown) (unknown) Medical decision [...] date) CULTURE unknown) (unknown) (no (unknown) (unknown) [place]] (units (un known) date) unknown) (unknown) (no [...] (unknown) Resource line at (units (unknown) date) [phone]. They unknown) will ask some questions about [...] (unknown) SPEC #: (units (unkno wn) date) [id number] JOVANI: unknown) 07/23/22 STATUS: COMP REQ (unknown) [...] patient has unknown) not been able to brain picker his antibiotics for (unknown) (no (unknown) [...] date) be picked up unknown) tomorrow from [facility] in [place], patient is (unknown) (no (unknown) (unknown) metoprolol [...] which he was prescribed but unable to brain picker as (unknown) (no (unknown) (unknown) start [...] date) unknown) (unknown) (no (unknown) (unknown) #: [id number] (units (un known) date) unknown) (unknown) (no [...] primary care unknown) provider please contact the [facility] (unknown) (no (unknown) (unknown) *Please continue [...] own) date) unknown) (unknown) (no (unknown) (unknown) [id number] (units (unkno wn) date) unknown) (unknown) (no [...] date) unknown) (unknown) (no (unknown) (unknown) [address] [place] [address], (units (unknown) date) [place], [address] unknown) (unknown) (no (unknown) (unknown) 18:19 (units [...] (no (unknown) (unknown) (units (unknown) date) Unit#: [id number] unknown) : 1975Location: ED (unknown) (no (unknown) [...] patient was unknown) prescribed but did not brain picker due to wrong pharmacy (unknown) (no [...] date) Impression: unknown) (unknown) (no (unknown) (unknown) [place] Count (units (u nknown) date) >100,000 CFU/ml unknown) (unknown) (no (unknown) (unknown) Consult to E[employer] COMMODITY MANAGER - (units (unknown) date) Java Analyst unknown) Stat (unknown) (no (unknown) (unknown) Course (units (unkno wn) date) unknown) (unknown) (no (unknown) (unknown) Stephan Issa D.O. (units (unknown) date) unknown) (unknown) (no (unknown) (unknown) : 1975 (units (unknown) date) Acct:[id number] unknown) (unknown) (no (unknown) (unknown) Date of [...] (units ( unknown) date) Za Harrell unknown) CLINIC LPN (unknown) (no (unknown) (unknown) Emergency Report (units (unknown) date) unknown) (unknown) (no (unknown) (unknown) Exam Narrative: (units (unknown) date) unknown) (unknown) (no (unknown) (unknown) Exam (units (unkno wn) date) unknown) (unknown) (no (unknown) (unknown) FAX TO: (units (unkno wn) date) unknown) (unknown) (no (unknown) (unknown) Family History (units (unknown) date) (Reviewed 07/30/22 unknown) @ 19:09 by Za Harrell [facility]) (unknown) (no (unknown) (unknown) Father CVA [...] Male, Urinary Tract (unknown) (no (unknown) (unknown) [facility] (units (unknown) date) [address] unknown) [place] [address] (unknown) (no (unknown) (unknown) [facility] (units (unknown) date) Laboratory CLIA ID unknown) [id number] (unknown) (no (unknown) (unknown) Ketorolac (units (unkn [...] 07/30/22 unknown) @ 19:09 by Za Harrell [facility]) (unknown) (no (unknown) (unknown) Medical decision [...] date) CULTURE unknown) (unknown) (no (unknown) (unknown) [place]] (units (un known) date) unknown) (unknown) (no [...] (unknown) Resource line at (units (unknown) date) [phone]. They unknown) will ask some questions about [...] unknown) date) 07/23/22-2340 SUBM unknown) DR: Tian Hebret D.O. (unknown) (no (unknown) (unknown) SPEC #: (units (unkno wn) date) [id number] JOVANI: unknown) 07/23/22 STATUS: COMP REQ (unknown) [...] 07/30/22 unknown) @ 19:09 by Za Harrell [facility]) (unknown) (no (unknown) (unknown) Take 1 [...] patient has unknown) not been able to brain picker his antibiotics for (unknown) (no (unknown) [...] date[facility] [place] patient is (unknown) (no (unknown) (unknown) metoprolol [...] which he was prescribed but unable to brain picker as (unknown) (no (unknown) (unknown) start [...] date) unknown) (unknown) (no (unknown) (unknown) #: [id number] (units (un known) date) unknown) (unknown) (no [...] primary care unknown) provider please contact the [facility] (unknown) (no (unknown) (unknown) *Please continue [...] own) date) unknown) (unknown) (no (unknown) (unknown) [id number] (units (unkno wn) date) unknown) (unknown) (no [...] date) unknown) (unknown) (no (unknown) (unknown) [address] [place] [address], (units (unknown) [place]) [place], [address] unknown) (unknown) (no (unknown) (unknown) 18:19 07/30/22 [...] (no (unknown) (unknown) (units (unknown) date) Unit#: [id number] unknown) : 1975Location: ED (unknown) (no (unknown) [...] patient was unknown) prescribed but did not brain picker due to wrong pharmacy (unknown) (no [...] date) Impression: unknown) (unknown) (no (unknown) (unknown) [place] Count (units (u nknown) date) >100,000 CFU/ml unknown) (unknown) (no (unknown) (unknown) Consult to [facility] - (units (unknown) date) Java Analyst unknown) Stat (unknown) (no (unknown) (unknown) Course (units (unkno wn) date) unknown) (unknown) (no (unknown) (unknown) Stephan Issa D.O. (units (unknown) date) unknown) (unknown) (no (unknown) (unknown) : 1975 (units (unknown) date) Acct:[id number] unknown) (unknown) (no (unknown) (unknown) Date of [...] Male, Urinary Tract (unknown) (no (unknown) (unknown) [facility] (units (unknown) date) [address] [place] [address] unknown) [place] [address] (unknown) (no (unknown) (unknown) [facility] (units (unknown) date) Laboratory CLIA ID unknown) [id number] (unknown) (no (unknown) (unknown) Ketorolac (units (unkn [...] date) CULTURE unknown) (unknown) (no (unknown) (unknown) [place]] (units (un known) date) unknown) (unknown) (no [...] (unknown) Resource line at (units (unknown) date) [phone]. They unknown) will ask some questions about [...] (unknown) SPEC #: (units (unkno wn) date) [id number] JOVANI: unknown) 07/23/22 STATUS: COMP REQ (unknown) [...] 07/30/22 unknown) @ 19:09 by Za Harrell [facility]) (unknown) (no (unknown) (unknown) Source: patient [...] 07/30/22 unknown) @ 19:09 by Za Harrell [facility]) (unknown) (no (unknown) (unknown) Take 1 [...] patient has unknown) not been able to brain picker his antibiotics for (unknown) (no (unknown) [...] date) [facility] unknown[facility] [place], patient is (unknown) (no (unknown) (unknown) metoprolol [...] which he was prescribed but unable to brain picker as (unknown) (no (unknown) (unknown) start [...] date) unknown) (unknown) (no (unknown) (unknown) #: [id number] (units (un known) date) unknown) (unknown) (no [...] primary care unknown) provider please contact the [facility] (unknown) (no (unknown) (unknown) *Please continue [...] own) date) unknown) (unknown) (no (unknown) (unknown) [id number] (units (unkno wn) date) unknown) (unknown) (no [...] date) unknown) (unknown) (no (unknown) (unknown) [address] [place] [address], (units (unknown) [place]) [place], [address] unknown) (unknown) (no (unknown) (unknown) 18:19 07/30/22 [...] (no (unknown) (unknown) (units (unknown) date) Unit#: [id number] unknown) : 1975Location: ED (unknown) (no (unknown) [...] patient was unknown) prescribed but did not brain picker due to wrong pharmacy (unknown) (no [...] Called To: (units (unk nown) date) [employer] unknown) (unknown) (no (unknown) (unknown) Cardiovascular: (units (unknown) date) Tachycardic rate unknown) and regular rhythm, no peripheral edema, warm (unknown) (no (unknown) (unknown) Chief complaint: (units (unknown) date) Urogenital-Male unknown) (unknown) (no (unknown) (unknown) Clinical (units (unkno wn) date) Impression: unknown) (unknown) (no (unknown) (unknown) [place] Count (units (u nknown) date) >100,000 CFU/ml unknown) (unknown) (no (unknown) (unknown) Cosign (units (unkno wn) date) unknown) (unknown) (no (unknown) (unknown) Course (units (unkno wn) date) unknown) (unknown) (no (unknown) (unknown) Stephan Issa D.O. (units (unknown) date) unknown) (unknown) (no (unknown) (unknown) : 1975 (units (unknown) date) Acct:[id number] unknown) (unknown) (no (unknown) (unknown) Date of [...] Male, Urinary Tract (unknown) (no (unknown) (unknown) [facility] (units (unknown) date) [address] unknown) [place] [address] (unknown) (no (unknown) (unknown) [facility] (units (unknown) date) Laboratory CLIA ID unknown) [id number] (unknown) (no (unknown) (unknown) Ketorolac (units (unkn [...] 07/30/22 unknown) @ 19:09 by Za Harrell [facility]) (unknown) (no (unknown) (unknown) Medical decision [...] date) CULTURE unknown) (unknown) (no (unknown) (unknown) [place]] (units (un known) date) unknown) (unknown) (no [...] (unknown) Resource line at (units (unknown) date) [phone]. They unknown) will ask some questions about [...] (unknown) SPEC #: (units (unkno wn) date) [id number] JOVANI: unknown) 07/23/22 STATUS: COMP REQ (unknown) [...] patient has unknown) not been able to brain picker his antibiotics for (unknown) (no (unknown) [...] date) be picked up unknown) tomorrow from [facility] in [place], patient is (unknown) (no (unknown) (unknown) metoprolol [...] which he was prescribed but unable to brain picker as (unknown) (no (unknown) (unknown) start [...] nown) date) unknown) (unknown) (no (unknown) (unknown) [id number] (units (unkno wn) date) unknown) (unknown) (no (unknown) (unknown) 1. Enhancement of (units (unknown) date) the left kidney unknown) appears somewhat heterogeneous. This could (unknown) (no (unknown) (unknown) 08/06/22 (units (unkno wn) date) unknown) (unknown) (no (unknown) (unknown) [address] [place] [address] (units (unknown) date) unknown) (unknown) (no (unknown) [...] (unknown) (unknown) Accession Number: (units (unknown) date) [id number] unknown) (unknown) (no (unknown) (unknown) Adrenal Glands: (units (unknown) date) No nodule. unknown) (unknown) (no (unknown) (unknown) After the (units (unkn own) date) administration of unknown) oral and IV contrast, axial sections were acquired (unknown) (no (unknown) (unknown) Age/Sex: 47 / M (units (unknown) date) Date of Service: unknown) (unknown) (no (unknown) (unknown) [place], [place] (units ( unknown) date) [address] unknown) (unknown) (no (unknown) (unknown) Approved by: [...] (unknown) (unknown) COMPARISON: (units (un known) date) [facility] unknown) [facility], MR, MR ABDOMEN [...] (unknown) (unknown) : 1975 (units (unknown) date) Acct:[id number] unknown) (unknown) (no (unknown) (unknown) Dictated by: [...] date) Excellent. unknown) (unknown) (no (unknown) (unknown) [facility] (units (unknown) date) unknown) (unknown) (no [...] wn) date) unknown) (unknown) (no (unknown) (unknown) [place] (units (unkno wn) date) unknown) (unknown) (no [...] the pancreatic head, (unknown) (no (unknown) (unknown) [facility], (units (unknown) date) CT, CT ABDOMEN [...] (unknown) date) unknown) (unknown) (no (unknown) (unknown) [id number] (units (unkno wn) date) unknown) (unknown) (no [...] (unknown) (unknown) : 1975 (units (unknown) date) Acct:[id number] unknown) (unknown) (no (unknown) (unknown) Date of [...] 07/30/22 unknown) @ 19:09 by Za Harrell [facility]) (unknown) (no (unknown) (unknown) Father CVA [...] date) Signs: unknown) (unknown) (no (unknown) (unknown) [facility] (units (unknown) date) [address] [place] [address] Street unknown) [place] [address] (unknown) (no (unknown) (unknown) Ketorolac (units (unkn [...] (unknown) Lymph # (Auto) (units (unknown) date) (7789-4895) /uL unknown) (unknown) (no (unknown) (unknown) Lymph # (Auto) (units (unknown) date) 1200 (2555-1936) unknown) /uL (unknown) (no (unknown) (unknown) Lymph [...] 07/30/22 unknown) @ 19:09 by Za Harrell [facility]) (unknown) (no (unknown) (unknown) Medication (units (unk nown) date) Instructions unknown) Recorded Confirmed (unknown) (no (unknown) (unknown) Medication (units (unk nown) date) Instructions unknown) Recorded (unknown) (no (unknown) (unknown) [place] # (Auto) (units ( unknown) date) (0-900) /uL unknown) (unknown) (no (unknown) (unknown) [place] # (Auto) 400 (units (unknown) date) (0-900) /uL unknown) (unknown) (no (unknown) (unknown) [place] % (Auto) (units ( unknown) date) (3-14) % unknown) (unknown) (no (unknown) (unknown) [place] % (Auto) 4.7 (units (unknown) date) (3-14) % unknown) (unknown) (no (unknown) (unknown) Mother Myocardial (units (unknown) date) infarct unknown) (unknown) (no (unknown) (unknown) Neurogenic pain (units (unknown) date) unknown) (unknown) (no (unknown) (unknown) Neut # (Auto) (units ( unknown) date) (7072-0208) /uL unknown) (unknown) (no (unknown) (unknown) Neut # (Auto) 7400 (units (unknown) date) H (4533-7160) /uL unknown) (unknown) (no (unknown) (unknown) Neut [...] 07/30/22 unknown) @ 19:09 by Za Harrell [facility]) (unknown) (no (unknown) (unknown) Sodium (137-145) [...] (unknown) date) unknown) (unknown) (no (unknown) (unknown) [id number] (units (unkno wn) date) unknown) (unknown) (no [...] (unknown) (unknown) : 1975 (units (unknown) date) Acct:[id number] unknown) (unknown) (no (unknown) (unknown) Date of [...] date) Signs: unknown) (unknown) (no (unknown) (unknown) Integumentary/[place] (units (unknown) date) sts unknown) (unknown) (no (unknown) (unknown) [facility] (units (unknown) date) [address] unknown) [place] [address] (unknown) (no (unknown) (unknown) Ketorolac (units (unkn [...] (unknown) Lymph # (Auto) (units (unknown) date) (9843-1721) /uL unknown) (unknown) (no (unknown) (unknown) Lymph # (Auto) (units (unknown) date) 1200 (5215-6344) unknown) /uL (unknown) (no (unknown) (unknown) Lymph [...] Instructions unknown) Recorded (unknown) (no (unknown) (unknown) [place] # (Auto) (units ( unknown) date) (0-900) /uL unknown) (unknown) (no (unknown) (unknown) [place] # (Auto) 400 (units (unknown) date) (0-900) /uL unknown) (unknown) (no (unknown) (unknown) [place] % (Auto) (units ( unknown) date) (3-14) % unknown) (unknown) (no (unknown) (unknown) [place] % (Auto) 4.7 (units (unknown) date) (3-14) [...] Neut # (Auto) (units ( unknown) date) (6109-7571) /uL unknown) (unknown) (no (unknown) (unknown) Neut # (Auto) 7400 (units (unknown) date) H (1309-1721) /uL unknown) (unknown) (no (unknown) (unknown) Neut [...] (unknown) date) unknown) (unknown) (no (unknown) (unknown) [id number] (units (unkno wn) date) unknown) (unknown) (no [...] (unknown) (unknown) COMPARISON:? (units (u nknown) date) [facility] unknown) [facility], MR, MR ABDOMEN [...] (unknown) (unknown) : 1975 (units (unknown) date) Acct:[id number] unknown) (unknown) (no (unknown) (unknown) Date of [...] date) sts unknown) (unknown) (no (unknown) (unknown) [facility] (units (unknown) date) [address] unknown) [place] [address] (unknown) (no (unknown) (unknown) Ketorolac (units (unkn [...] (unknown) Lymph # (Auto) (units (unknown) date) (7354-4638) /uL unknown) (unknown) (no (unknown) (unknown) Lymph # (Auto) (units (unknown) date) 1200 (9366-5471) unknown) /uL (unknown) (no (unknown) (unknown) Lymph [...] the gluteal cleft (unknown) (no (unknown) (unknown) [place] # (Auto) (units ( unknown) date) (0-900) /uL unknown) (unknown) (no (unknown) (unknown) [place] # (Auto) 400 (units (unknown) date) (0-900) /uL unknown) (unknown) (no (unknown) (unknown) [place] % (Auto) (units ( unknown) date) (3-14) % unknown) (unknown) (no (unknown) (unknown) [place] % (Auto) 4.7 (units (unknown) date) (3-14) [...] Neut # (Auto) (units ( unknown) date) (4867-7777) /uL unknown) (unknown) (no (unknown) (unknown) Neut # (Auto) 7400 (units (unknown) date) H (3673-6150) /uL unknown) (unknown) (no (unknown) (unknown) Neut [...] nown) date) unknown) (unknown) (no (unknown) (unknown) [place] (units (unkno wn) date) unknown) (unknown) (no [...] (unknown) (unknown) Urine Specific (units (unknown) date) [place] 1.025 unknown) (unknown) (no (unknown) (unknown) [facility], (units (unknown) date) CT, CT ABDOMEN [...] (unknown) date) unknown) (unknown) (no (unknown) (unknown) [id number] (units (unkno wn) date) unknown) (unknown) (no [...] (unknown) (unknown) COMPARISON:? (units (u nknown) date) [place] unknown) [facility], MR, MR [...] (unknown) (unknown) : 1975 (units (unknown) date) Acct:[id number] unknown) (unknown) (no (unknown) (unknown) Date of [...] DI for Constipation (unknown) (no (unknown) (unknown) Integumentary/[place] (units (unknown) date) sts unknown) (unknown) (no (unknown) (unknown) [facility] (units (unknown) date) [address] unknown) [place] [address] (unknown) (no (unknown) (unknown) Ketorolac (units (unkn [...] (unknown) Lymph # (Auto) (units (unknown) date) (1264-8505) /uL unknown) (unknown) (no (unknown) (unknown) Lymph # (Auto) (units (unknown) date) 1200 (4335-9885) unknown) /uL (unknown) (no (unknown) (unknown) Lymph [...] the gluteal cleft (unknown) (no (unknown) (unknown) [place] # (Auto) (units ( unknown) date) (0-900) /uL unknown) (unknown) (no (unknown) (unknown) [place] # (Auto) 400 (units (unknown) date) (0-900) /uL unknown) (unknown) (no (unknown) (unknown) [place] % (Auto) (units ( unknown) date) (3-14) % unknown) (unknown) (no (unknown) (unknown) [place] % (Auto) 4.7 (units (unknown) date) (3-14) [...] Neut # (Auto) (units ( unknown) date) (8114-0909) /uL unknown) (unknown) (no (unknown) (unknown) Neut # (Auto) 7400 (units (unknown) date) H (6068-9784) /uL unknown) (unknown) (no (unknown) (unknown) Neut [...] nown) date) unknown) (unknown) (no (unknown) (unknown) [place] (units (unkno wn) date) unknown) (unknown) (no [...] (unknown) (unknown) Urine Specific (units (unknown) date) [place] 1.025 unknown) (unknown) (no (unknown) (unknown) [facility], (units (unknown) date) CT, CT ABDOMEN [...] facility 2022-07-11 00:00 Current some day smoker [facility] 2022-07-13 00:00 Current some day smoker [facility] 2022-07-23 00:00 Ex-smoker (finding) [facility] 2022-07-30 00:00 Ex-smoker (finding) [facility] 2022-08-06 00:00 Ex-smoker (finding) [facility] Vital Signs date measurement value units [...]
[2022-08-17] MEDS ORDERED: KETOROLAC 60 MG/2 ML VIAL IM STA ×2 (19:04→19:07)
[2022-08-17] MEDS: PREGABALIN 100 MG CAPSULE PO SCH (21:03)
[2022-08-17] MEDS: METOPROLOL TARTRATE 50 MG TABLET PO SCH (21:03)
[2022-08-18] MEDS: PANTOPRAZOLE 40 MG TABLET PO SCH (06:38)
[2022-08-18] MEDS: METOPROLOL TARTRATE 50 MG TABLET PO SCH ×2 (09:14→21:01)
[2022-08-18] MEDS: DULoxetine 30 MG CAPSULE PO SCH (09:14)
[2022-08-18] MEDS: PREGABALIN 100 MG CAPSULE PO SCH ×2 (09:44→21:01)
[2022-08-18] MEDS: ACETAMINOPHEN 500 MG TABLET PO PRN (12:56)
[2022-08-18] MEDS: methocarbamoL 500 MG TABLET PO PRN (12:56)
[2022-08-18] MEDS ORDERED: LIDOCAINE PATCH 5% TOP STA (13:31)
--- NOTE | 2022-08-18 13:32 | ED Physician Documentation ---
ED Addendum - Addendum Addendum: 08/18/22 13:31 Patient seen and examined at bedside. He also is working on getting a hold of the state with his phone. He states that someone is going to come out to assess him on Saturday. The only specificComplaint he has is that his lidocaine patch fell off overnight and needs a new one and this was reordered.
[2022-08-18] MEDS ORDERED: MAG HYDROX/AL HYDROX/SIMETH 30 ML UDC PO STA (16:22)
[2022-08-18] MEDS: traZODone 50 MG TABLET PO SCH (21:57)
[2022-08-19] MEDS: PANTOPRAZOLE 40 MG TABLET PO SCH (06:35)
[2022-08-19] MEDS: DULoxetine 30 MG CAPSULE PO SCH (08:26)
[2022-08-19] MEDS: PREGABALIN 100 MG CAPSULE PO SCH ×2 (08:26→21:26)
[2022-08-19] MEDS: METOPROLOL TARTRATE 50 MG TABLET PO SCH ×2 (08:26→21:26)
[2022-08-19] MEDS: methocarbamoL 500 MG TABLET PO PRN ×2 (10:44→20:02)
[2022-08-19] MEDS: ACETAMINOPHEN 500 MG TABLET PO PRN ×2 (10:44→20:01)
--- NOTE | 2022-08-19 16:14 | ED Physician Documentation ---
ED Addendum - Addendum Addendum: 08/19/22 16:13 No problems reported by nursing staff. The patient seemed content in his bed with brief conversation with him. We can continue with current medications and diet etc. We should have social work tomorrow to start working on issues regarding alternative housing if needed or home care etc.
[2022-08-19] MEDS: traZODone 50 MG TABLET PO SCH (21:26)
[2022-08-20] MEDS: traZODone 50 MG TABLET PO SCH (00:55)
[2022-08-20] MEDS: ACETAMINOPHEN 500 MG TABLET PO PRN (04:16)
[2022-08-20] MEDS: methocarbamoL 500 MG TABLET PO PRN (04:16)
[2022-08-20] MEDS: PANTOPRAZOLE 40 MG TABLET PO SCH (06:42)
--- NOTE | 2022-08-20 07:45 | ED Physician Documentation ---
ED Addendum - Addendum Addendum: 08/20/22 07:43 He is complaining of some flank pain, he has been in contact with some folks and is expecting a call back today regarding placement. Vital signs been unremarkable. For his chronic pain we would like to avoid narcotics. He is already on pregabalin, Tylenol. He has a history of perforated gastric ulcer so NSAIDs are not ideal. In the emergency department we have limited ability for nonpharmacologic multimodal analgesia. Given the circumstances would seem reasonable to start a low-dose tricyclic for pain. So we will start nortriptyline 25 mg now and 25 mg at bedtime.
[2022-08-20] MEDS ORDERED: NORTRIPTYLINE 25 MG CAPSULE PO STA (07:46)
[2022-08-20] MEDS: PREGABALIN 100 MG CAPSULE PO SCH (08:41)
[2022-08-20] MEDS: DULoxetine 30 MG CAPSULE PO SCH (08:41)
[2022-08-20] MEDS: METOPROLOL TARTRATE 50 MG TABLET PO SCH (08:41)
--- NOTE | 2022-08-20 14:58 | ED Physician Documentation ---
ED Addendum - Addendum Addendum: 08/20/22 14:58 Seen by social work today, he now he feels safe going home and will seek placement from home. Disposition: Discharged home Condition: Stable
[2022-08-20 15:44] VITALS: BP 130/94
[2022-08-20] MEDS ORDERED: NORTRIPTYLINE 25 MG CAPSULE PO SCH (21:00)
== END 2022-08-20 16:01 | disposition home or self-care (01) ==
LOC: EDUNIT# → ED 16:28
DX: Z02.2 Encounter for examination for admission to residential institution (principal); G82.50 Quadriplegia, unspecified; I10 Essential (primary) hypertension; R10.9 Unspecified abdominal pain
CPT/HCPCS: 96372; 99282; 99283; A9270

== ENCOUNTER 2022-08-20 16:01 | Outpatient (CLI) | payer MEDICARE, MEDICAID | END 2022-08-20 16:02 | disposition home or self-care (01) | LOC: EMS 16:01 | PROVIDERS: ATTEND Emergency Medicine | DX: G82.50 Quadriplegia, unspecified (principal) | CPT/HCPCS: A0425; A0428 ==